=== PATIENT | male | born 1965 | race Caucasian/White ===

== ENCOUNTER 2016-06-10 | Outpatient (CLI) | END 2016-06-10 20:11 | disposition critical access hospital (66) | CPT/HCPCS: A0425; A0429 ==

== ENCOUNTER 2016-06-10 21:02 | Emergency (ER) | payer MEDICAID ==
[2016-06-10] MEDS ORDERED: SODIUM CHLORIDE 0.9% 1,000 ML IV STA ×2 (21:47→23:16)
== END 2016-06-11 08:35 | disposition home or self-care (01) ==
DX: F10.129 Alcohol abuse with intoxication, unspecified (principal); G62.9 Polyneuropathy, unspecified; W01.0XXA Fall on same level from slipping, tripping and stumbling without subsequent striking against object, initial encounter; Y92.019 Unspecified place in single-family (private) house as the place of occurrence of the external cause; I10 Essential (primary) hypertension; G47.30 Sleep apnea, unspecified; R25.1 Tremor, unspecified; K21.9 Gastro-esophageal reflux disease without esophagitis; M19.90 Unspecified osteoarthritis, unspecified site; Z87.891 Personal history of nicotine dependence

== ENCOUNTER 2016-07-13 | Outpatient (CLI) | payer MEDICAID | END 2016-07-13 22:40 | disposition critical access hospital (66) | CPT/HCPCS: A0425; A0429 ==

== ENCOUNTER 2016-07-13 22:50 | Inpatient (IN) | payer MEDICAID ==
[2016-07-14] MEDS ORDERED: diazePAM INJ 5 MG/ML SYRINGE IVP STA (00:48)
[2016-07-14] MEDS ORDERED: diazePAM INJ 5 MG/ML SYRINGE ONE (00:52)
[2016-07-14] MEDS ORDERED: ONDANSETRON 4 MG/2 ML VIAL IVP PRN (01:05)
[2016-07-14] MEDS ORDERED: LABETALOL 20 MG/4 ML SYRINGE IVP ONE (02:30)
[2016-07-14] MEDS: MAGNESIUM OXIDE 400 MG TABLET PO SCH ×2 (02:47→08:47)
[2016-07-14] MEDS: SODIUM CHLORIDE FLUSH 0.9% 10 ML SYRINGE IVP PRN ×3 (02:47→04:11)
[2016-07-14] MEDS: ACETAMINOPHEN 325 MG TABLET PO PRN ×2 (03:32→13:43)
[2016-07-14] MEDS: LORazepam 2 MG/ML SYRINGE IVP PRN ×2 (03:32→04:10)
[2016-07-14] MEDS: METOPROLOL 5 MG/5 ML VIAL IVP SCH ×3 (06:34→20:16)
[2016-07-14] MEDS: SODIUM CHLORIDE FLUSH 0.9% 10 ML SYRINGE IVP SCH ×3 (06:35→21:35)
[2016-07-14] MEDS: ENOXAPARIN 40 MG/0.4 ML SYRINGE SUBQ SCH (08:47)
[2016-07-14] MEDS ORDERED: FAMOTIDINE 20 MG/50 ML 50 ML IV SCH (09:00)
[2016-07-14] MEDS ORDERED: MULTIVITAMIN 10 ML, THIAMINE INJ 100 MG, FOLIC ACID INJ 1 MG in SODIUM CHLORIDE 0.9% 1,... IV SCH (09:00)
[2016-07-14] MEDS ORDERED: MAGNESIUM SULFATE 2 GRAM 50 ML IV ONE (12:00)
[2016-07-14] MEDS ORDERED: LORazepam 0.5 MG TABLET PO PRN ×2 (20:38→21:47)
[2016-07-14] MEDS ORDERED: ONDANSETRON ODT 4 MG TABLET TL PRN (20:47)
[2016-07-14] MEDS ORDERED: PROPRANOLOL 10 MG TABLET PO SCH (21:00)
[2016-07-15] MEDS: SODIUM CHLORIDE FLUSH 0.9% 10 ML SYRINGE IVP SCH (06:12)
[2016-07-15] MEDS ORDERED: PANTOPRAZOLE 40 MG TABLET PO SCH (07:00)
[2016-07-15] MEDS ORDERED: PRENATAL VITAMIN TABLET PO SCH (08:00)
[2016-07-15] MEDS: ACETAMINOPHEN 325 MG TABLET PO PRN (08:56)
[2016-07-15] MEDS: ENOXAPARIN 40 MG/0.4 ML SYRINGE SUBQ SCH (08:58)
[2016-07-15] MEDS ORDERED: THIAMINE 100 MG TABLET PO SCH (09:00)
[2016-07-15] MEDS ORDERED: PROPRANOLOL 40 MG TABLET PO SCH (09:00)
[2016-07-15] MEDS ORDERED: FLU VACCINE QS 2016-17 60 MCG/0.5 ML SYRINGE IM ONE (13:00)
== END 2016-07-15 13:46 | disposition home or self-care (01) | DRG 917 ==
DX: T50.901A Poisoning by unspecified drugs, medicaments and biological substances, accidental (unintentional), initial encounter (principal); G92 Toxic encephalopathy; G60.3 Idiopathic progressive neuropathy; I10 Essential (primary) hypertension; Y92.009 Unspecified place in unspecified non-institutional (private) residence as the place of occurrence of the external cause; F10.20 Alcohol dependence, uncomplicated; Z96.649 Presence of unspecified artificial hip joint; Z87.891 Personal history of nicotine dependence; Z82.49 Family history of ischemic heart disease and other diseases of the circulatory system; Z79.1 Long term (current) use of non-steroidal anti-inflammatories (NSAID); G89.29 Other chronic pain; M25.551 Pain in right hip; G40.909 Epilepsy, unspecified, not intractable, without status epilepticus; F41.9 Anxiety disorder, unspecified; F32.9 Major depressive disorder, single episode, unspecified; K21.9 Gastro-esophageal reflux disease without esophagitis

== ENCOUNTER 2016-08-25 18:36 | Outpatient (CLI) | payer MEDICAID | END 2016-08-25 18:37 | disposition critical access hospital (66) | DX: R07.9 Chest pain, unspecified (principal) | CPT/HCPCS: A0425; A0429 ==

== ENCOUNTER 2016-08-27 17:56 | Outpatient (CLI) | payer MEDICAID | END 2016-08-27 17:57 | disposition critical access hospital (66) | DX: R10.9 Unspecified abdominal pain (principal); R11.0 Nausea | CPT/HCPCS: A0425; A0427 ==

== ENCOUNTER 2016-08-27 18:08 | Inpatient (IN) | payer MEDICAID ==
[2016-08-27] MEDS ORDERED: FOLIC ACID INJ 1 MG, THIAMINE INJ 100 MG, MAGNESIUM SULFATE 2 GM, MULTIVITAMIN 10 ML in... IV STA ×5 (18:12)
[2016-08-27] MEDS ORDERED: HYDROmorphone 1 MG/ML SYRINGE IVP STA (20:07)
[2016-08-27] MEDS ORDERED: HYDROmorphone 1 MG/ML SYRINGE ONE (20:12)
[2016-08-27] MEDS ORDERED: ONDANSETRON ODT 4 MG TABLET TL PRN (20:52)
[2016-08-27] MEDS: ONDANSETRON 4 MG/2 ML VIAL IVP PRN (22:25)
[2016-08-27] MEDS: LORazepam 2 MG/ML SYRINGE IVP PRN (22:27)
[2016-08-27] MEDS: HYDROmorphone 1 MG/ML SYRINGE IVP PRN (22:31)
[2016-08-27] MEDS: SODIUM CHLORIDE FLUSH 0.9% 10 ML SYRINGE IVP SCH (22:32)
[2016-08-28] MEDS: HYDROmorphone 1 MG/ML SYRINGE IVP PRN ×3 (00:45→06:59)
[2016-08-28] MEDS: SODIUM CHLORIDE FLUSH 0.9% 10 ML SYRINGE IVP PRN ×5 (00:50→12:03)
[2016-08-28] MEDS: LORazepam 2 MG/ML SYRINGE IVP PRN ×7 (00:50→21:41)
[2016-08-28] MEDS: ONDANSETRON 4 MG/2 ML VIAL IVP PRN ×3 (03:31→15:47)
[2016-08-28] MEDS ORDERED: SODIUM CHLORIDE 0.9% 1,000 ML IV SCH (04:00)
[2016-08-28] MEDS: PROCHLORPERAZINE 10 MG/2 ML VIAL IVP PRN ×2 (06:58→18:43)
[2016-08-28] MEDS: PANTOPRAZOLE 40 MG VIAL IVP SCH ×2 (06:58→15:40)
[2016-08-28] MEDS: SODIUM CHLORIDE FLUSH 0.9% 10 ML SYRINGE IVP SCH ×3 (06:58→21:43)
[2016-08-28] MEDS ORDERED: LORazepam 2 MG/ML SYRINGE IVP PRN (08:15)
[2016-08-28] MEDS: POLYETHYLENE GLYCOL 3350 17 GM PACKET PO SCH (08:28)
[2016-08-28] MEDS: hydrOXYzine PAMOATE 25 MG CAPSULE PO SCH ×3 (08:29→21:39)
[2016-08-28] MEDS: buPROPion SR 100 MG TABLET PO SCH (08:29)
[2016-08-28] MEDS: PROPRANOLOL ER 60 MG CAPSULE PO SCH ×2 (08:29→21:40)
[2016-08-28] MEDS ORDERED: GABAPENTIN 100 MG CAPSULE PO SCH (09:00)
[2016-08-28] MEDS ORDERED: LORazepam 2 MG/ML SYRINGE IVP ONE (09:00)
[2016-08-28] MEDS: MULTIVITAMIN 10 ML, THIAMINE INJ 100 MG, FOLIC ACID INJ 1 MG in D5.45NS W/20 MEQ KCL 1,... IV SCH (09:54)
[2016-08-28] MEDS: KETOROLAC 30 MG/ML VIAL IVP PRN ×2 (12:03→18:43)
[2016-08-28] MEDS ORDERED: HYDROmorphone 1 MG/ML SYRINGE IVP PRN (13:30)
[2016-08-28] MEDS ORDERED: HYDROmorphone 2 MG TABLET PO PRN (20:51)
[2016-08-28] MEDS ORDERED: PRAZOSIN 1 MG CAPSULE PO SCH ×2 (21:00→21:31)
[2016-08-28] MEDS: QUEtiapine 100 MG TABLET PO SCH (21:38)
[2016-08-28] MEDS: GABAPENTIN 100 MG CAPSULE PO SCH (21:40)
[2016-08-28] MEDS: HYDROmorphone 2 MG TABLET PO PRN (21:40)
[2016-08-28] MEDS: MIRTAZAPINE 15 MG TABLET PO SCH (21:50)
[2016-08-29] MEDS: KETOROLAC 30 MG/ML VIAL IVP PRN ×3 (05:08→21:55)
[2016-08-29] MEDS: SODIUM CHLORIDE FLUSH 0.9% 10 ML SYRINGE IVP PRN ×4 (05:08→21:55)
[2016-08-29] MEDS: LORazepam 2 MG/ML SYRINGE IVP PRN (06:27)
[2016-08-29] MEDS: HYDROmorphone 2 MG TABLET PO PRN (06:27)
[2016-08-29] MEDS: PANTOPRAZOLE 40 MG VIAL IVP SCH ×2 (06:28→15:47)
[2016-08-29] MEDS: POLYETHYLENE GLYCOL 3350 17 GM PACKET PO SCH (09:37)
[2016-08-29] MEDS: hydrOXYzine PAMOATE 25 MG CAPSULE PO SCH ×3 (09:37→20:21)
[2016-08-29] MEDS: buPROPion SR 100 MG TABLET PO SCH (09:38)
[2016-08-29] MEDS: PROPRANOLOL ER 60 MG CAPSULE PO SCH ×2 (09:38→20:20)
[2016-08-29] MEDS: MULTIVITAMIN 10 ML, THIAMINE INJ 100 MG, FOLIC ACID INJ 1 MG in D5.45NS W/20 MEQ KCL 1,... IV SCH (09:40)
[2016-08-29] MEDS: SODIUM CHLORIDE FLUSH 0.9% 10 ML SYRINGE IVP SCH ×2 (09:41→20:26)
[2016-08-29] MEDS ORDERED: PROCHLORPERAZINE 5 MG TABLET PO PRN (11:09)
[2016-08-29] MEDS ORDERED: ONDANSETRON ODT 4 MG TABLET TL PRN (11:10)
[2016-08-29] MEDS ORDERED: MULTIVITAMIN 10 ML, THIAMINE INJ 100 MG, FOLIC ACID INJ 1 MG in D5.45NS W/20 MEQ KCL 1,... IV SCH (12:00)
[2016-08-29] MEDS ORDERED: LORazepam 0.5 MG TABLET PO STA (18:46)
[2016-08-29] MEDS: GABAPENTIN 100 MG CAPSULE PO SCH (20:19)
[2016-08-29] MEDS: MIRTAZAPINE 15 MG TABLET PO SCH (20:19)
[2016-08-29] MEDS: QUEtiapine 100 MG TABLET PO SCH (20:23)
[2016-08-30] MEDS: KETOROLAC 30 MG/ML VIAL IVP PRN (04:08)
[2016-08-30] MEDS: PANTOPRAZOLE 40 MG VIAL IVP SCH (06:15)
[2016-08-30] MEDS: SODIUM CHLORIDE FLUSH 0.9% 10 ML SYRINGE IVP SCH ×2 (06:15→13:52)
[2016-08-30] MEDS ORDERED: LORAZEPAM 1 MG PO PRN (07:54)
[2016-08-30] MEDS ORDERED: MULTIVITAMIN TABLET PO SCH (08:00)
[2016-08-30] MEDS: KETOROLAC 10 MG TABLET PO PRN ×2 (08:24→13:49)
[2016-08-30] MEDS: POLYETHYLENE GLYCOL 3350 17 GM PACKET PO SCH (08:24)
[2016-08-30] MEDS: PROPRANOLOL ER 60 MG CAPSULE PO SCH (08:24)
[2016-08-30] MEDS: hydrOXYzine PAMOATE 25 MG CAPSULE PO SCH (08:25)
[2016-08-30] MEDS: buPROPion SR 100 MG TABLET PO SCH (08:25)
[2016-08-30] MEDS: LORazepam 0.5 MG TABLET PO SCH ×2 (08:25→13:49)
[2016-08-30] MEDS ORDERED: THIAMINE 100 MG TABLET PO SCH (09:00)
[2016-08-30] MEDS ORDERED: FOLIC ACID 1 MG TABLET PO SCH (09:00)
== END 2016-08-30 16:53 | disposition home or self-care (01) | DRG 439 ==
DX: K85.20 Alcohol induced acute pancreatitis without necrosis or infection (principal); F10.239 Alcohol dependence with withdrawal, unspecified; F10.229 Alcohol dependence with intoxication, unspecified; T51.0X1A Toxic effect of ethanol, accidental (unintentional), initial encounter; Y90.6 Blood alcohol level of 120-199 mg/100 ml; Z76.5 Malingerer [conscious simulation]; T84.84XS Pain due to internal orthopedic prosthetic devices, implants and grafts, sequela; G89.28 Other chronic postprocedural pain; R63.0 Anorexia; Z68.22 Body mass index [BMI] 22.0-22.9, adult; F32.9 Major depressive disorder, single episode, unspecified; F41.9 Anxiety disorder, unspecified; G62.9 Polyneuropathy, unspecified; G65.0 Sequelae of Guillain-Barre syndrome; I10 Essential (primary) hypertension; E78.5 Hyperlipidemia, unspecified; F98.8 Other specified behavioral and emotional disorders with onset usually occurring in childhood and adolescence; K21.9 Gastro-esophageal reflux disease without esophagitis; Z79.899 Other long term (current) drug therapy

== ENCOUNTER 2016-09-11 17:24 | Emergency (ER) | payer MEDICAID ==
[2016-09-11] MEDS ORDERED: SODIUM CHLORIDE 0.9% 1,000 ML IV ONE (17:43)
[2016-09-11] MEDS ORDERED: LIDOCAINE VISCOUS 2% 15 ML UDC MM STA (18:24)
[2016-09-11] MEDS ORDERED: MAG HYDROX/AL HYDROX/SIMETH 30 ML UDC PO STA (18:24)
[2016-09-11] MEDS ORDERED: SUCRALFATE 1 GM/10 ML UDC PO STA (18:24)
[2016-09-11] MEDS ORDERED: MAG HYDROX/AL HYDROX/SIMETH 30 ML UDC ONE (18:33)
[2016-09-11] MEDS ORDERED: SUCRALFATE 1 GM/10 ML UDC ONE (18:33)
[2016-09-11] MEDS ORDERED: LIDOCAINE VISCOUS 2% 15 ML UDC MM ONE (18:33)
[2016-09-11] MEDS ORDERED: PANTOPRAZOLE 40 MG VIAL IVP STA (19:46)
[2016-09-11] MEDS ORDERED: PANTOPRAZOLE 40 MG VIAL ONE (19:50)
== END 2016-09-11 20:23 | disposition home or self-care (01) ==
DX: K29.20 Alcoholic gastritis without bleeding (principal); R10.13 Epigastric pain; F10.120 Alcohol abuse with intoxication, uncomplicated; Z87.891 Personal history of nicotine dependence; I10 Essential (primary) hypertension; K21.9 Gastro-esophageal reflux disease without esophagitis; F32.9 Major depressive disorder, single episode, unspecified; F41.9 Anxiety disorder, unspecified
CPT/HCPCS: 36415; 80053; 80320; 83690; 85025; 96374; 99283; 99284; A9270

== ENCOUNTER 2016-09-16 16:37 | Emergency (ER) | payer MEDICAID ==
[2016-09-16] MEDS ORDERED: HYDROmorphone 1 MG/ML SYRINGE IVP STA (17:03)
[2016-09-16] MEDS ORDERED: SODIUM CHLORIDE 0.9% 1,000 ML IV ONE (17:03)
[2016-09-16] MEDS ORDERED: THIAMINE 100 MG TABLET PO STA (17:03)
[2016-09-16] MEDS ORDERED: PANTOPRAZOLE 40 MG VIAL IVP STA (17:03)
--- NOTE | 2016-09-16 17:05 | ED Physician Documentation ---
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 I admitted him potentially a week ago for pancreatitis. He did not see sober for long after discharge. He complains of upper abdominal pain radiating slightly to the back and diffusely in the abdomen since yesterday worse today that did not improve after drinking more alcohol. He's had no vomiting and normal bowel movements) Review of Systems Ten Systems: 10 systems reviewed and negative Constitutional: denies: Fever, Chills Cardiac: denies: Chest pain / pressure, Palpitations Respiratory: denies: Dyspnea, Cough GI: denies: Nausea, Vomiting, Diarrhea, Hematemesis, Bloody / black stool PD PAST MEDICAL HISTORY - Past Medical History Cardiovascular: Hypertension Respiratory: None, Sleep apnea Neuro: Tremors, Other Endocrine/Autoimmune: None GI: GERD, Pancreatitis : Incontinence HEENT: None Psych: Depression, Anxiety Musculoskeletal: Osteoarthritis Derm: None - Past Surgical History Past Surgical History: Yes Ortho: Hip replacement, Arthroscopic surgery HEENT: Tracheostomy - Present Medications Home Medications: Ambulatory Orders Medication Instructions Recorded Confirmed Bupropion HCl [Bupropion HCl Sr] 200 mg PO DAILY 05/23/16 09/11/16 Gabapentin 300 mg PO QPM 05/23/16 09/11/16 Hydroxyzine Pamoate 50 - 100 mg PO QPM 05/23/16 09/11/16 Hydroxyzine Pamoate 50 mg PO 0900,1600 05/23/16 09/11/16 Lorazepam 1 mg PO TID PRN 05/23/16 09/11/16 Propranolol [Inderal] 60 mg PO BID 05/23/16 09/11/16 Omeprazole [PriLOSEC] 20 mg PO QDAC 07/14/16 09/11/16 Mirtazapine 30 mg PO QPM 08/28/16 09/11/16 Prazosin HCl [Minipress] 2 - 4 mg PO QPM 08/28/16 09/11/16 Quetiapine Fumarate [Seroquel] 800 mg PO QPM 08/28/16 09/11/16 Folic Acid 1 mg PO DAILY #30 tablet 08/30/16 09/11/16 Multivitamin [Theragran] 1 tab PO DAILYWM #30 tablet 08/30/16 09/11/16 Ondansetron Odt [Zofran Odt] 4 mg TL Q6HR PRN #10 tablet 08/30/16 09/11/16 Thiamine [Vitamin B-1] 100 mg PO DAILY #30 tablet 08/30/16 09/11/16 Famotidine [Pepcid] 20 mg PO BID #30 tablet 09/11/16 Sucralfate 1 gm PO ACHS #60 tablet 09/11/16 HYDROcod/ACETAM 5/325 [[place] 5/325] 1 - 2 ea PO Q6H PRN #10 tablet 09/16/16 Lorazepam [Ativan] 1 mg PO TID PRN #7 tablet 09/16/16 Omeprazole [PriLOSEC] 20 mg PO DAILY #14 capsule 09/16/16 - Allergies Allergies/Adverse Reactions: Allergies Allergy/AdvReac Type Severity Reaction Status Date / Time lisinopril Allergy Mild Edema Verified 09/11/16 17:41 - Social History Does the pt smoke?: No Smoking Status: Former smoker Does the pt drink ETOH?: Yes Does the pt have substance abuse?: Yes - Immunizations Immunizations are current?: Yes Immunizations: Other immun not current - POLST Patient has POLST: No PD ED PE NORMAL - Vitals Vital signs reviewed: Yes - General General: 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, No acute distress - HEENT HEENT: PERRL, EOMI - Neck Neck: Supple, no meningeal sign, No bony TTP - Cardiac Cardiac: RRR, No murmur - Respiratory Respiratory: No respiratory distress, Clear bilaterally - Abdomen Abdomen: Normal bowel sounds, Soft, Other (mild upper abd ttp) - Back Back: No CVA TTP, No spinal TTP - Derm Derm: Normal color, Warm and dry - Neuro Neuro: 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, Normal speech - Psych Psych: Normal mood, Normal affect Results - Vitals Vitals: Vital Signs - 24 hr 09/16/16 09/16/16 16:44 17:49 Temperature 36.5 C Heart Rate 86 83 Respiratory 18 16 Rate Blood Pressure 158/102 H 137/100 H O2 Saturation 94 98 Oxygen O2 Source Room air - Labs Labs: Laboratory Tests 09/16/16 09/16/16 17:20 17:20 WBC 4.9 RBC 4.43 L Hgb 13.3 L Hct 41.5 L MCV 93.7 MCH 30.1 MCHC 32.1 RDW 13.7 Plt Count 261 MPV 8.1 Neut # 2.3 Lymph # 1.9 [place] # 0.6 Eos # 0.1 Baso # 0.1 Absolute Nucleated RBC 0.01 Nucleated RBCs 0.1 Sodium 139 Potassium 4.4 Chloride 102 Carbon Dioxide 21 Anion Gap 16.0 H BUN 24 H Creatinine 0.8 Estimated GFR (MDRD) 102 Glucose 74 Calcium 9.5 Total Bilirubin 1.1 H AST 43 H ALT 27 Alkaline Phosphatase 79 Total Protein 7.9 Albumin 4.5 Globulin 3.4 Albumin/Globulin Ratio 1.3 Lipase 60 H Ethyl Alcohol 124.6 PD MEDICAL DECISION MAKING - ED course ED course: 51-year-old gentleman with long history of alcoholism and complications including alcoholic pancreatitis and gastritis presents with upper abdominal pain which could be either. There is no evidence of pancreatitis on lab work. He had minimal relief from IV Dilaudid but actually had pretty good relief with the GI cocktail. He was administered IV Protonix. Supportive mom is at the bedside. Alcohol has been removed from the house. He will call his insurance tomorrow to inquire about inpatient alcohol rehabilitation Departure - Departure Disposition: 01 Home, Self Care Clinical Impression: Gastritis Qualifiers: Gastritis type: alcoholic Chronicity: acute Gastritis bleeding: without bleeding Qualified Code(s): K29.20 - Alcoholic gastritis without bleeding Alcohol intoxication Qualifiers: Complication of substance-induced condition: uncomplicated Qualified Code(s): F10.120 - Alcohol abuse with intoxication, uncomplicated Condition: Good Record reviewed to determine appropriate education?: Yes Instructions: ED Alcohol Intoxication, ED Gastritis Prescriptions: Lorazepam [Ativan] 1 mg PO TID PRN #7 tablet PRN Reason: Anxiety HYDROcod/ACETAM 5/325 [[place] 5/325] 1 - 2 ea PO Q6H PRN #10 tablet PRN Reason: Pain Omeprazole [PriLOSEC] 20 mg PO DAILY #14 capsule Comments: Call your insurance company's case hardener tomorrow to discuss inpatient alcohol rehabilitation. Return if worse. Your blood pressure was elevated today on check in to the emergency department. This does not mean that you have hypertension, it is a common phenomenon to check into the emergency department and have elevated blood pressure. I recommend that you see your primary care physician within the week to have it rechecked when you're feeling better. Do not drink or drive while on narcotic pain medicine. Note that many narcotic pain relievers also contain tylenol/acetaminophen. Please ensure that your total dose of acetaminophen from all sources does not exceed 3 grams (3000mg) per day. You may constipated on this medication, take a stool softener such as "Colace" twice a day while you are on it. Also recommend a [id number]-ogl-[id number] laxative such as senna or MiraLAX any day that you do not have a bowel movement. If you received narcotic pain medication in the emergency department, do not drive or operate machinery for the next 24 hours.
[2016-09-16] MEDS ORDERED: PANTOPRAZOLE 40 MG VIAL ONE (17:24)
[2016-09-16] MEDS ORDERED: HYDROmorphone 1 MG/ML SYRINGE ONE (17:24)
[2016-09-16] MEDS ORDERED: THIAMINE 100 MG/1 ML 2 ML MDV ONE (17:24)
[2016-09-16 17:29] LABS: BASOPHILS # (AUTO) 0.1 10^3/uL (0.0-0.1); BASOPHILS % (AUTO) 1.7 %; EOSINOPHILS # (AUTO) 0.1 10^3/uL (0.0-0.7); EOSINOPHILS % (AUTO) 2.5 %; HCT - HEMATOCRIT 41.5 % (42.0-52.0); HGB - HEMOGLOBIN 13.3 g/dL (14.0-18.0); LYMPHOCYTES # (AUTO) 1.9 10^3/uL (1.5-3.5); LYMPHOCYTES % (AUTO) 38.3 %; MEAN CORPUSCULAR HEMOGLOBIN 30.1 pg (27.0-31.0); MEAN CORPUSCULAR HGB CONC 32.1 g/dL (32.0-36.0); MEAN CORPUSCULAR VOLUME 93.7 fL (80.0-94.0); MEAN PLATELET VOLUME 8.1 fL (7.4-11.4); MONOCYTES # (AUTO) 0.6 10^3/uL (0.0-1.0); MONOCYTES % (AUTO) 11.5 %; NEUTROPHILS # (AUTO) 2.3 10^3/uL (1.5-6.6); NUCLEATED RED BLOOD CELLS AUTO 0.1 /100WBC; RED BLOOD COUNT 4.43 10^6/uL (4.70-6.10); RED CELL DISTRIBUTION WIDTH 13.7 % (12.0-15.0); UNCORRECTED WHITE BLOOD COUNT 4.9 x10^3/uL; WHITE BLOOD COUNT 4.9 x10^3/uL (4.8-10.8)
[2016-09-16] MEDS ORDERED: THIAMINE 100 MG TABLET PO ONE (17:30)
[2016-09-16 17:50] VITALS: BP 137/100
[2016-09-16] MEDS ORDERED: LIDOCAINE VISCOUS 2% 15 ML UDC MM STA (17:51)
[2016-09-16] MEDS ORDERED: MAG HYDROX/AL HYDROX/SIMETH 30 ML UDC PO STA (17:51)
[2016-09-16 17:52] LABS: ALBUMIN/GLOBULIN RATIO 1.3 (1.0-2.2); BILIRUBIN,TOTAL 1.1 mg/dL (0.2-1.0); CALCIUM 9.5 mg/dL (8.5-10.3); CREATININE 0.8 mg/dL (0.6-1.2); POTASSIUM 4.4 mmol/L (3.5-5.0); TOTAL PROTEIN 7.9 g/dL (6.7-8.2)
[2016-09-16] MEDS ORDERED: MAG HYDROX/AL HYDROX/SIMETH 30 ML UDC ONE (17:52)
[2016-09-16] MEDS ORDERED: LIDOCAINE VISCOUS 2% 15 ML UDC MM ONE (17:52)
== END 2016-09-16 18:32 | disposition home or self-care (01) ==
LOC: ED 16:37
DX: K29.20 Alcoholic gastritis without bleeding (principal); F10.229 Alcohol dependence with intoxication, unspecified; I10 Essential (primary) hypertension; G61.0 Guillain-Barre syndrome; K21.9 Gastro-esophageal reflux disease without esophagitis; M19.90 Unspecified osteoarthritis, unspecified site; Z87.891 Personal history of nicotine dependence
CPT/HCPCS: 36415; 80053; 80320; 83690; 85025; 96361; 96374; 96375; 99283; 99284; A9270; J1170

== ENCOUNTER 2016-10-23 17:15 | Outpatient (CLI) | payer MEDICAID | END 2016-10-23 17:16 | disposition critical access hospital (66) | DX: R45.851 Suicidal ideations (principal) | CPT/HCPCS: A0425; A0429 ==

== ENCOUNTER 2016-10-23 17:32 | Emergency (ER) | payer MEDICAID ==
[2016-10-23] MEDS ORDERED: SODIUM CHLORIDE 0.9% 1,000 ML IV ONE (17:55)
--- NOTE | 2016-10-23 17:57 | ED Physician Documentation ---
PD HPI ALTERED MENTAL STATUS - Stated complaint Stated Complaint: SI - Chief complaint Chief Complaint: MHE - History obtained from History obtained from: Patient, EMS - History of Present Illness Timing - onset: Today Timing - duration: Other (unknown) - Additional information Additional information: Stew is unable to give any history, moaning. Per EMS has been drinking etoh today and states that he called the called the crisis line and they dispatched police. Review of Systems Unable to obtain: AMS, Uncooperative PD PAST MEDICAL HISTORY - Past Medical History Cardiovascular: Hypertension Respiratory: None, Sleep apnea Neuro: Tremors, Other Endocrine/Autoimmune: None GI: GERD, Pancreatitis : Incontinence HEENT: None Psych: Depression, Anxiety Musculoskeletal: Osteoarthritis Derm: None - Past Surgical History Past Surgical History: Yes Ortho: Hip replacement, Arthroscopic surgery HEENT: Tracheostomy - Present Medications Home Medications: Ambulatory Orders Medication Instructions Recorded Confirmed Bupropion HCl [Bupropion HCl Sr] 200 mg PO DAILY 05/23/16 09/11/16 Gabapentin 300 mg PO QPM 05/23/16 09/11/16 Hydroxyzine Pamoate 50 - 100 mg PO QPM 05/23/16 09/11/16 Hydroxyzine Pamoate 50 mg PO 0900,1600 05/23/16 09/11/16 Lorazepam 1 mg PO TID PRN 05/23/16 09/11/16 Propranolol [Inderal] 60 mg PO BID 05/23/16 09/11/16 Omeprazole [PriLOSEC] 20 mg PO QDAC 07/14/16 09/11/16 Mirtazapine 30 mg PO QPM 08/28/16 09/11/16 Prazosin HCl [Minipress] 2 - 4 mg PO QPM 08/28/16 09/11/16 Quetiapine Fumarate [Seroquel] 800 mg PO QPM 08/28/16 09/11/16 Folic Acid 1 mg PO DAILY #30 tablet 08/30/16 09/11/16 Multivitamin [Theragran] 1 tab PO DAILYWM #30 tablet 08/30/16 09/11/16 Ondansetron Odt [Zofran Odt] 4 mg TL Q6HR PRN #10 tablet 08/30/16 09/11/16 Thiamine [Vitamin B-1] 100 mg PO DAILY #30 tablet 08/30/16 09/11/16 Famotidine [Pepcid] 20 mg PO BID #30 tablet 09/11/16 Sucralfate 1 gm PO ACHS #60 tablet 09/11/16 HYDROcod/ACETAM 5/325 [[place] 5/325] 1 - 2 ea PO Q6H PRN #10 tablet 09/16/16 Lorazepam [Ativan] 1 mg PO TID PRN #7 tablet 09/16/16 Omeprazole [PriLOSEC] 20 mg PO DAILY #14 capsule 09/16/16 - Allergies Allergies/Adverse Reactions: Allergies Allergy/AdvReac Type Severity Reaction Status Date / Time lisinopril Allergy Mild Edema Verified 09/11/16 17:41 - Social History Does the pt smoke?: No Smoking Status: Former smoker Does the pt drink ETOH?: Yes Does the pt have substance abuse?: Yes - Immunizations Immunizations are current?: Yes Immunizations: Other immun not current - POLST Patient has POLST: No PD ED PE NORMAL - Vitals Vital signs reviewed: Yes - General General: Well developed/nourished, Other (moaning, alert) - HEENT HEENT: Atraumatic, PERRL, EOMI, Moist mucous membranes - Neck Neck: Supple, no meningeal sign - Cardiac Cardiac: RRR, Strong equal pulses - Respiratory Respiratory: No respiratory distress, Clear bilaterally - Abdomen Abdomen: Soft, Non tender - Derm Derm: Warm and dry, No rash - Extremities Extremities: No deformity - Neuro Neuro: Other (MAEE) - Psych Psych: Other (intoxicated) Results - Vitals Vitals: Vital Signs - 24 hr 10/23/16 10/23/16 10/23/16 17:40 19:33 21:29 Temperature 37 C Heart Rate 92 94 80 Respiratory 17 16 18 Rate Blood Pressure 133/95 H 106/72 108/81 H O2 Saturation 96 95 92 10/23/16 21:35 Temperature Heart Rate 94 Respiratory 92 H Rate Blood Pressure 129/84 H O2 Saturation 95 Oxygen O2 Source Room air - Labs Labs: Laboratory Tests 10/23/16 10/23/16 18:25 18:25 WBC 5.4 RBC 4.44 L Hgb 13.5 L Hct 40.8 L MCV 92.0 MCH 30.3 MCHC 33.0 RDW 15.2 H Plt Count 191 MPV 8.2 Neut # 2.4 Lymph # 2.0 [place] # 0.8 Eos # 0.2 Baso # 0.1 Absolute Nucleated RBC 0.02 Nucleated RBCs 0.3 Sodium 139 Potassium 3.5 Chloride 98 L Carbon Dioxide 24 Anion Gap 17.0 H BUN 19 Creatinine 0.8 Estimated GFR (MDRD) 102 Glucose 96 Calcium 9.4 Total Bilirubin 0.6 AST 46 H ALT 35 Alkaline Phosphatase 74 Total Protein 7.6 Albumin 4.6 Globulin 3.0 Albumin/Globulin Ratio 1.5 Lipase 29 Salicylates < 6.0 Acetaminophen < 10 L Ethyl Alcohol 464.7 - Rads (name of study) head CT Radiology: Prelim report reviewed, EMP read contemporaneously, See rad report ( No acute intracranial abnormality) PD MEDICAL DECISION MAKING - ED course Complexity details: reviewed results, re-evaluated patient, considered differential, d/w patient ED course: Patient is a 51-year-old male who was brought into the emergency department for altered mental status, possible suicidal ideation. He is heavily intoxicated here. As he is unable to cooperate with exam and unable to speak initially, head CT was performed with no acute abnormality. He apparently was on the phone with the crisis line prior to EMS being called tonight by police. Will allow him to sober in the emergency department overnight and be reevaluated for suicidal ideation. Patient does have a long history of alcohol abuse.Patient signed out to oncoming emergency department physician, Dr. Tomas. This document was made in part using voice recognition software. While efforts are made to proofread this document, sound alike and grammatical errors may occur. Departure - Departure Clinical Impression: Alcohol intoxication Qualifiers: Complication of substance-induced condition: uncomplicated Qualified Code(s): F10.120 - Alcohol abuse with intoxication, uncomplicated Condition: Stable
[2016-10-23] MEDS ORDERED: FOLIC ACID INJ 1 MG, THIAMINE INJ 100 MG, MAGNESIUM SULFATE 2 GM, MULTIVITAMIN 10 ML in... IV STA ×5 (18:00)
[2016-10-23 18:44] LABS: BASOPHILS # (AUTO) 0.1 10^3/uL (0.0-0.1); EOSINOPHILS # (AUTO) 0.2 10^3/uL (0.0-0.7); EOSINOPHILS % (AUTO) 2.9 %; HCT - HEMATOCRIT 40.8 % (42.0-52.0); HGB - HEMOGLOBIN 13.5 g/dL (14.0-18.0); LYMPHOCYTES % (AUTO) 36.5 %; MEAN CORPUSCULAR HEMOGLOBIN 30.3 pg (27.0-31.0); MEAN PLATELET VOLUME 8.2 fL (7.4-11.4); MONOCYTES # (AUTO) 0.8 10^3/uL (0.0-1.0); MONOCYTES % (AUTO) 15.5 %; NEUTROPHILS # (AUTO) 2.4 10^3/uL (1.5-6.6); NEUTROPHILS % (AUTO) 44.1 %; NUCLEATED RED BLOOD CELLS AUTO 0.3 /100WBC; RED BLOOD COUNT 4.44 10^6/uL (4.70-6.10); RED CELL DISTRIBUTION WIDTH 15.2 % (12.0-15.0); UNCORRECTED WHITE BLOOD COUNT 5.4 x10^3/uL; WHITE BLOOD COUNT 5.4 x10^3/uL (4.8-10.8)
[2016-10-23 18:56] LABS: ALBUMIN/GLOBULIN RATIO 1.5 (1.0-2.2); BILIRUBIN,TOTAL 0.6 mg/dL (0.2-1.0); BUN - BLOOD UREA NITROGEN 19 mg/dL (6-20); CALCIUM 9.4 mg/dL (8.5-10.3); CARBON DIOXIDE - CO2 24 mmol/L (21-32); CHLORIDE 98 mmol/L (101-111); CREATININE 0.8 mg/dL (0.6-1.2); GFR - MDRD 102 (>89); GLUCOSE 96 mg/dL (70-100); LIPASE 29 U/L (22-51); POTASSIUM 3.5 mmol/L (3.5-5.0); SALICYLATE < 6.0 mg/dL; SODIUM 139 mmol/L (135-145); TOTAL PROTEIN 7.6 g/dL (6.7-8.2)
[2016-10-23 18:58] LABS: ACETAMINOPHEN < 10 ug/mL (10-30)
--- NOTE | 2016-10-23 19:23 | CT Preliminary Report ---
Exam: CT Head W/O IMPRESSION: 1. No acute intracranial abnormality is identified. [facility] SITE ID: [id number]
--- NOTE | 2016-10-23 19:25 | CT Report ---
EXAM: CT HEAD EXAM DATE: 10/23/2016 07:07 PM. CLINICAL HISTORY: Altered mental status. COMPARISON: 06/10/2016. 05/22/2016. TECHNIQUE: Multiaxial CT images were obtained from the foramen magnum to the vertex. IV contrast: Non e. Reformats: Coronal. In accordance with CT protocol optimization, one or more of the following dose reduction techniques w ere utilized for this exam: automated exposure control, adjustment of mA and/or KV based on patient s ize, or use of iterative reconstructive technique. FINDINGS: Parenchyma: Parenchymal volume loss with periventricular regions of low attenuation. No evidence of a n acute vascular insult or acute parenchymal hemorrhage. No midline shift. No mass effect. Extraaxial Spaces: Extra-axial spaces are prominent. No acute extra-axial fluid collections. Ventricles: Ventricles are symmetric and no hydrocephalus. Sinuses: Imaged paranasal sinuses, orbits, and mastoids show no significant abnormality. Bones: No evidence of fracture or calvarial defect. Other: Globes and orbits are unremarkable. IMPRESSION: 1. No acute intracranial abnormality is identified. [facility] Referring Provider Line: [phone] SITE ID: [id number]
[2016-10-24 00:36] LABS: BILIRUBIN,URINE NEGATIVE (NEGATIVE); PH,URINE 6.5 PH (5.0-7.5)
[2016-10-24 00:38] LABS: UA CHARGE (STRIP ONLY) YES; UR CULTURE IF IND NOT INDICATED
[2016-10-24 06:25] VITALS: BP 104/62
[2016-10-24] MEDS ORDERED: LORazepam 0.5 MG TABLET PO STA (08:36)
--- NOTE | 2016-10-24 08:36 | ED Physician Documentation ---
ED Addendum - Addendum Addendum: 10/24/16 08:32 He is awake and conversant. Says he has been drinking more regularly. Has AA sponsor and plans to go to Noon AA meeting today. He denies suicidal ideation at this time. Has goal of being sober again. Given Resource booklet for number for [facility] in [place]. He will call his mother for a ride. I do not feel he is at risk of self-harm. Is having mild shakiness starting. Will get him Rx to help with withdrawal symtpoms.
[2016-10-24] MEDS ORDERED: LORazepam 0.5 MG TABLET ONE (08:37)
== END 2016-10-24 09:01 | disposition home or self-care (01) ==
LOC: EDUNIT# → ED 17:32
DX: F10.129 Alcohol abuse with intoxication, unspecified (principal); I10 Essential (primary) hypertension; G47.30 Sleep apnea, unspecified; K21.9 Gastro-esophageal reflux disease without esophagitis; M19.90 Unspecified osteoarthritis, unspecified site; Z87.891 Personal history of nicotine dependence
CPT/HCPCS: 36415; 70450; 80053; 80306; 80307; 80320; 80329; 81003; 83690; 85025; 96365; 99284; A9270; J3411; 81001; 87086

== ENCOUNTER 2016-11-12 09:27 | Outpatient (CLI) | payer MEDICAID ==
[2016-11-12] MEDS ORDERED: BUFFERED LIDOCAINE 10 ML SYRINGE IU ONE (10:30)
[2016-11-12] MEDS ORDERED: IOTHALAMATE MEGLUMINE 50 ML VIAL IVP ONE ×2 (10:30)
[2016-11-12 11:06] LABS: CC,BF RBC 49716 /mm^3
--- NOTE | 2016-11-12 11:34 | XRAY Report ---
FLUOROSCOPICALLY GUIDED RIGHT HIP JOINT ASPIRATION: 11/12/2016 CLINICAL INDICATION: Possible loose or infected prosthesis. FINDINGS: Following obtaining informed consent, the patient's right hip was prepped and draped in the usual sterile fashion. The skin and soft tissues were anesthetized with lidocaine. A spinal needle was inserted to the prosthetic femoral neck. Initial attempt at aspiration was unsuccessful. Approximately 10 mL of nonbacteriostatic saline was injected, with approximately 2 mL returned. Fluid was submitted to the lab for further evaluation as requested by Dr. Hui. The patient tolerated the procedure well. No immediate complications. Spot image demonstrates needle positioning, with [place] injected. IMPRESSION: RIGHT HIP ASPIRATION UNDER FLUOROSCOPY. FLUOROSCOPY TIME: 45 SECONDS; 1 SPOT IMAGE OBTAINED. JOB #: [id number] EXT JOB #: [id number] MARVIN
[2016-11-12 12:10] LABS: EOSINOPHILS %,BODY FLUID 4 %; LYMPHOCYTES %,BODY FLUID 25; MONOCYTES %,BODY FLUID 2 %; NEUTROPHILS %, BF 62 %
[2016-11-12 12:12] LABS: BF CLARITY HAZY; BF COLOR BLOODY
== END 2016-11-12 09:28 | disposition home or self-care (01) ==
LOC: DI 09:27
PROVIDERS: ATTEND Orthopaedic Surgery
DX: T84.030A Mechanical loosening of internal right hip prosthetic joint, initial encounter (principal)
CPT/HCPCS: 20610; 77002; 81599; 87070; 87205; 89051; Q9961; 87102; 87206

== ENCOUNTER 2016-11-30 06:05 | Outpatient (CLI) | payer MEDICAID | END 2016-11-30 06:06 | disposition critical access hospital (66) | LOC: EMS 06:05 | PROVIDERS: ATTEND Surgery | DX: R47.81 Slurred speech (principal) | CPT/HCPCS: A0425; A0429 ==

== ENCOUNTER 2016-11-30 06:25 | Inpatient (IN) | payer MEDICAID ==
[2016-11-30 07:45] LABS: BASOPHILS % (AUTO) 1.4 %; EOSINOPHILS # (AUTO) 0.1 10^3/uL (0.0-0.7); EOSINOPHILS % (AUTO) 4.9 %; HCT - HEMATOCRIT 36.9 % (42.0-52.0); HGB - HEMOGLOBIN 12.5 g/dL (14.0-18.0); LYMPHOCYTES # (AUTO) 1.1 10^3/uL (1.5-3.5); LYMPHOCYTES % (AUTO) 37.5 %; MEAN CORPUSCULAR VOLUME 94.2 fL (80.0-94.0); MEAN PLATELET VOLUME 7.6 fL (7.4-11.4); MONOCYTES # (AUTO) 0.3 10^3/uL (0.0-1.0); NEUTROPHILS # (AUTO) 1.3 10^3/uL (1.5-6.6); NEUTROPHILS % (AUTO) 44.2 %; NUCLEATED RED BLOOD CELLS AUTO 0.1 /100WBC; RED BLOOD COUNT 3.91 10^6/uL (4.70-6.10); RED CELL DISTRIBUTION WIDTH 17.9 % (12.0-15.0); UNCORRECTED WHITE BLOOD COUNT 2.9 x10^3/uL; WHITE BLOOD COUNT 2.9 x10^3/uL (4.8-10.8)
[2016-11-30 07:56] LABS: ALBUMIN/GLOBULIN RATIO 1.6 (1.0-2.2); BUN - BLOOD UREA NITROGEN 24 mg/dL (6-20); CALCIUM 9.7 mg/dL (8.5-10.3); CARBON DIOXIDE - CO2 28 mmol/L (21-32); CHLORIDE 103 mmol/L (101-111); GFR - MDRD 78 (>89); GLUCOSE 90 mg/dL (70-100); LIPASE 53 U/L (22-51); SODIUM 140 mmol/L (135-145); TOTAL PROTEIN 7.3 g/dL (6.7-8.2)
[2016-11-30 08:07] LABS: PLATELET ESTIMATE, MANUAL NORMAL (130-450,000) (NORMAL); PLATELET MORPHOLOGY NORMAL APPEARANCE (NORMAL)
--- NOTE | 2016-11-30 08:48 | ED Physician Documentation ---
PD HPI ALTERED MENTAL STATUS - Stated complaint Stated Complaint: AMS - Chief complaint Chief Complaint: Neuro - History obtained from History obtained from: Patient - History of Present Illness Timing - onset: Yesterday Timing - duration: Days (1) Timing - details: Gradual onset, Still present, Waxing and waning Quality / character: Less responsive Associated symptoms: Other (ataxia) Contributing factors: Substance abuse (usually alcohol) Basline status: 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, Ambulatory Similar symptoms before: Diagnosis (alcohol intoxication and withdrawal .) Recently seen: Other (The patient has been admitted to the hospital 3 times and evaluated in the ED 10 times in the past year.) - Additional information Additional information: 51 y/o male with a history of [place] alcoholism has been in and out of the hospital over the past year with alcohol related illness and altered mental status. He gives a history of his father dying at a stop light on the way to the hospital in [place] and the patient did CPR on him in April of 2015. The patient has had increased alcohol abuse and he has been evaluated a number of times for intoxication and for withdrawal symptoms and he seems to get very ataxic with these episodes and clears in the hospital after a day or two. He reports that he has been helping his mother with some interior house painting and he has been decreasing his alcohol intake over the past 13 days. He did drink last night and this morning he has no alcohol on board. He is a quite historian this morning but able to cooperate. Review of Systems Constitutional: denies: Fever, Chills Eyes: denies: Decreased vision Ears: denies: Ear pain Nose: denies: Rhinorrhea / runny nose, Congestion Throat: denies: Sore throat Cardiac: denies: Chest pain / pressure, Palpitations Respiratory: denies: Dyspnea, Cough GI: reports: Nausea. denies: Abdominal Pain, Vomiting : denies: Dysuria, Frequency Skin: denies: Rash Musculoskeletal: reports: Extremity pain, Joint pain, Pain with weight bearing. denies: Neck pain, Back pain Neurologic: reports: Confused, Altered mental status. denies: Generalized weakness, Focal weakness, Numbness, Headache, Head injury, LOC PD PAST MEDICAL HISTORY - Past Medical History Past Medical History: Yes Cardiovascular: Hypertension Respiratory: None, Sleep apnea Neuro: Tremors, Other Endocrine/Autoimmune: None GI: GERD, Pancreatitis : Incontinence HEENT: None Psych: Depression, Anxiety Musculoskeletal: Osteoarthritis Derm: None - Past Surgical History Past Surgical History: Yes Ortho: Hip replacement, Arthroscopic surgery HEENT: Tracheostomy - Present Medications Home Medications: Ambulatory Orders Medication Instructions Recorded Confirmed Bupropion HCl [Bupropion HCl Sr] 200 mg PO DAILY 05/23/16 11/30/16 Gabapentin 300 mg PO QPM 05/23/16 11/30/16 Hydroxyzine Pamoate 50 - 150 mg PO QPM 05/23/16 11/30/16 Hydroxyzine Pamoate 50 mg PO 0900,1600 05/23/16 09/11/16 Lorazepam 1 mg PO TID PRN 05/23/16 09/11/16 Propranolol [Inderal] 60 mg PO BID 05/23/16 11/30/16 Mirtazapine 7.5 mg PO QPM 08/28/16 11/30/16 Prazosin HCl [Minipress] 2 - 4 mg PO QPM 08/28/16 11/30/16 Quetiapine Fumarate [Seroquel] 800 mg PO QPM 08/28/16 11/30/16 Folic Acid 1 mg PO DAILY #30 tablet 08/30/16 11/30/16 Multivitamin [Theragran] 1 tab PO DAILYWM #30 tablet 08/30/16 09/11/16 Ondansetron Odt [Zofran Odt] 4 mg TL Q6HR PRN #10 tablet 08/30/16 09/11/16 Thiamine [Vitamin B-1] 100 mg PO DAILY #30 tablet 08/30/16 09/11/16 Famotidine [Pepcid] 20 mg PO BID #30 tablet 09/11/16 Sucralfate 1 gm PO ACHS #60 tablet 09/11/16 11/30/16 HYDROcod/ACETAM 5/325 [[place] 5/325] 1 - 2 ea PO Q6H PRN #10 tablet 09/16/16 Lorazepam [Ativan] 1 mg PO TID PRN #7 tablet 09/16/16 11/30/16 Omeprazole [PriLOSEC] 20 mg PO DAILY #14 capsule 09/16/16 11/30/16 Promethazine [Phenergan] 25 mg PO Q6H PRN #30 tab 10/24/16 chlordiazePOXIDE [Librium] 25 mg PO Q6H PRN #25 capsule 10/24/16 - Allergies Allergies/Adverse Reactions: Allergies Allergy/AdvReac Type Severity Reaction Status Date / Time lisinopril Allergy Mild Edema Verified 11/30/16 06:30 - Social History Does the pt smoke?: No Smoking Status: Former smoker Does the pt drink ETOH?: Yes Does the pt have substance abuse?: Yes - Immunizations Immunizations are current?: Yes Immunizations: Other immun not current - POLST Patient has POLST: No PD ED PE NORMAL - Vitals Vital signs reviewed: Yes (hypertensive ) - General General: No acute distress, Well developed/nourished - HEENT HEENT: Atraumatic, PERRL, EOMI, Ears normal, Other (dry mucous membranes) - Neck Neck: Supple, no meningeal sign, No bony TTP - Cardiac Cardiac: RRR, No murmur - Respiratory Respiratory: No respiratory distress, Clear bilaterally - Abdomen Abdomen: Soft, Non tender - Back Back: No CVA TTP, No spinal TTP - Derm Derm: Normal color, Warm and dry, No rash - Extremities Extremities: No deformity, Normal ROM s pain, No edema, No calf tenderness / cord - Neuro Neuro: No motor deficit, No sensory deficit - Psych Psych: Other (mood is withdrawn and the affect does have some range. ) Results - Vitals Vitals: Vital Signs - 24 hr 11/30/16 11/30/16 11/30/16 06:26 08:00 11:13 Temperature 37.4 C Heart Rate 76 73 73 Respiratory 18 14 14 Rate Blood Pressure 135/96 H 134/98 H 97/85 H O2 Saturation 99 95 96 11/30/16 12:00 Temperature Heart Rate 66 Respiratory 11 L Rate Blood Pressure 151/110 H O2 Saturation 96 Oxygen O2 Source Room air - Labs Labs: Laboratory Tests 11/30/16 11/30/16 11/30/16 07:37 07:37 09:55 WBC 2.9 L RBC 3.91 L Hgb 12.5 L Hct 36.9 L MCV 94.2 H MCH 32.0 H MCHC 34.0 RDW 17.9 H Plt Count 167 MPV 7.6 Neut # 1.3 L Lymph # 1.1 L [place] # 0.3 Eos # 0.1 Baso # 0.0 Absolute Nucleated RBC 0.00 Nucleated RBCs 0.1 Manual Slide Review Indicated Platelet Estimate NORMAL (130-450,000) Platelet Morphology NORMAL APPEARANCE RBC Morph Micro Appear 1+ TARGET CELLS Sodium 140 Potassium 4.0 Chloride 103 Carbon Dioxide 28 Anion Gap 9.0 BUN 24 H Creatinine 1.0 Estimated GFR (MDRD) 78 L Glucose 90 Calcium 9.7 Total Bilirubin 1.0 AST 147 H ALT 126 H Alkaline Phosphatase 68 Total Protein 7.3 Albumin 4.5 Globulin 2.8 Albumin/Globulin Ratio 1.6 Lipase 53 H Urine Color YELLOW Urine Clarity CLEAR Urine pH 7.0 Ur Specific [place] <=1.005 Urine Protein NEGATIVE Urine Glucose (UA) NEGATIVE Urine Ketones NEGATIVE Urine Occult Blood NEGATIVE Urine Nitrite NEGATIVE Urine Bilirubin NEGATIVE Urine Urobilinogen 0.2 (NORMAL) Ur Leukocyte Esterase NEGATIVE Ur Microscopic Review NOT INDICATED Urine Culture Comments NOT INDICATED Urine Opiates Screen NEGATIVE Ur Oxycodone Screen NEGATIVE Urine Methadone Screen NEGATIVE Ur Propoxyphene Screen NEGATIVE Ur Barbiturates Screen NEGATIVE Ur Tricyclics Screen POSITIVE H Ur Phencyclidine Scrn NEGATIVE Ur Amphetamine Screen NEGATIVE U Methamphetamines Scrn NEGATIVE U Benzodiazepines Scrn POSITIVE H Urine Cocaine Screen NEGATIVE U Cannabinoids Screen NEGATIVE Ethyl Alcohol < 5.0 PD MEDICAL DECISION MAKING - ED course Complexity details: reviewed old records, reviewed results, re-evaluated patient , considered differential, d/w patient, d/w family ED course: 51 y/o male with a history of [place] syndrome has had episodes similar to this previously where he will have ataxia and altered mental status and he usually clears in 1-2 days in the hospital. The patient is given a banana bag IV and he continues to have the ataxia and plans are made for admission. Departure - Departure Disposition: 66 [facility] [place] DC/Xfer Clinical Impression: Ataxia Altered mental status Qualifiers: Altered mental status type: disorientation Qualified Code(s): R41.0 - Disorientation, unspecified
[2016-11-30] MEDS ORDERED: FOLIC ACID INJ 1 MG, THIAMINE INJ 100 MG, MAGNESIUM SULFATE 2 GM, MULTIVITAMIN 10 ML in... IV STA ×5 (09:16)
[2016-11-30 10:06] LABS: BILIRUBIN,URINE NEGATIVE (NEGATIVE)
[2016-11-30] MEDS ORDERED: DEXAMETHASONE 10 MG/ML VIAL IVP STA (10:08)
[2016-11-30 10:11] LABS: UA CHARGE (STRIP ONLY) YES; UR CULTURE IF IND NOT INDICATED
[2016-11-30] MEDS ORDERED: DEXAMETHASONE 10 MG/ML VIAL ONE (10:28)
[2016-11-30] MEDS ORDERED: ONDANSETRON 4 MG/2 ML VIAL IVP PRN (13:42)
[2016-11-30] MEDS ORDERED: ACETAMINOPHEN 325 MG TABLET PO PRN (13:42)
[2016-11-30] MEDS ORDERED: SODIUM CHLORIDE FLUSH 0.9% 10 ML SYRINGE IVP PRN (13:42)
[2016-11-30] MEDS ORDERED: DEXTROSE 5%-0.45% NACL 1,000 ML IV SCH (14:00)
[2016-11-30 14:46] LABS: BASOPHILS % (AUTO) 0.6 %; EOSINOPHILS % (AUTO) 0.5 %; HCT - HEMATOCRIT 42.6 % (42.0-52.0); HGB - HEMOGLOBIN 14.3 g/dL (14.0-18.0); LYMPHOCYTES # (AUTO) 0.5 10^3/uL (1.5-3.5); LYMPHOCYTES % (AUTO) 19.1 %; MEAN CORPUSCULAR HEMOGLOBIN 32.2 pg (27.0-31.0); MEAN CORPUSCULAR HGB CONC 33.6 g/dL (32.0-36.0); MEAN CORPUSCULAR VOLUME 95.9 fL (80.0-94.0); MEAN PLATELET VOLUME 7.2 fL (7.4-11.4); MONOCYTES # (AUTO) 0.1 10^3/uL (0.0-1.0); MONOCYTES % (AUTO) 3.2 %; NEUTROPHILS # (AUTO) 2.1 10^3/uL (1.5-6.6); NEUTROPHILS % (AUTO) 76.6 %; NUCLEATED RED BLOOD CELLS AUTO 0.1 /100WBC; RED BLOOD COUNT 4.45 10^6/uL (4.70-6.10); RED CELL DISTRIBUTION WIDTH 18.4 % (12.0-15.0); UNCORRECTED WHITE BLOOD COUNT 2.7 x10^3/uL; WHITE BLOOD COUNT 2.7 x10^3/uL (4.8-10.8)
--- NOTE | 2016-11-30 14:51 | HISTORY & PHYSICAL EXAMINATION ---
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 Patient is a quite poor historian. Patient's mother at the bedside help provide some of history. Pt report he called 911 because he found his mother was shaking, in the pain "like heart attack." However the mother report she did not have these symptoms. EMS picked patient but not the mother. Pt report he felt weakness from his bilateral lower extremities to over his whole body, report "sinuses symptoms." But denies nasal congestion, nasal discharge, cough, fever, chill, facial pain or headache. Pt's speech is slurred and slowed. Pt report he has been on slurred and slow speech at least for six months. The mother state she could not understand what patient talk about, and ask patient repeat his talk. Pt denies drinking alcohol today, and is angry when the mother state he drunk alcohol. His mother state he drunk at least one bottle of wine (half of liter) on yesterday. Pt also report he can walk at least one mile daily. On my exam, pt does not present other new focal neural deficits. Pt does present mild restless, ataxia-like movement at his bilateral lower extremities. pt is oriented to his self, aware he is at [facility]. It is very similar to prior admission. He can only provide very limited history. Pt denies chest pain, abdominal pain, nausea, vomiting, diarrhea, SOB, headache. Denies suicide or homicide Idea. Review of Systems - Constitutional Constitutional: reports: Weakness History - Past Medical History Cardiovascular: reports: Hypertension Respiratory: reports: None, Sleep apnea Neuro: reports: Tremors, Other Endocrine/Autoimmune: reports: None GI: reports: GERD, Pancreatitis : reports: Incontinence HEENT: reports: None Psych: reports: Depression, Anxiety Musculoskeletal: reports: Osteoarthritis Derm: reports: None MRSA Hx?: No - Past Surgical History Ortho: reports: Hip replacement, Arthroscopic surgery HEENT: reports: Tracheostomy - Family & Social History Family History: Father: ( fro [place]), CAD Living arrangement: At home (patient is living with his mother, no job) Living Situation: With family - POLST Patient has POLST: No POLST Status: DNR (pt clearly state to me it is DNR, Pt's mother at the bedside did not say no.) Meds/Allgy - Home Medications Home Medications: Ambulatory Orders Medication Instructions Recorded Confirmed Bupropion HCl [Bupropion HCl Sr] 200 mg PO DAILY 05/23/16 11/30/16 Gabapentin 300 mg PO QPM 05/23/16 11/30/16 Hydroxyzine Pamoate 50 - 150 mg PO QPM 05/23/16 11/30/16 Hydroxyzine Pamoate 50 mg PO 0900,1600 05/23/16 11/30/16 Propranolol [Inderal] 60 mg PO BID 05/23/16 11/30/16 Mirtazapine 7.5 mg PO QPM 08/28/16 11/30/16 Prazosin HCl [Minipress] 2 - 4 mg PO QPM 08/28/16 11/30/16 Quetiapine Fumarate [Seroquel] 800 mg PO QPM 08/28/16 11/30/16 Folic Acid 1 mg PO DAILY #30 tablet 08/30/16 11/30/16 Multivitamin [Theragran] 1 tab PO DAILYWM #30 tablet 08/30/16 11/30/16 Thiamine [Vitamin B-1] 100 mg PO DAILY #30 tablet 08/30/16 11/30/16 Sucralfate 1 gm PO ACHS #60 tablet 09/11/16 11/30/16 Lorazepam [Ativan] 1 mg PO TID PRN #7 tablet 09/16/16 11/30/16 Omeprazole [PriLOSEC] 20 mg PO DAILY #14 capsule 09/16/16 11/30/16 - Allergies Allergies/Adverse Reactions: Allergies Allergy/AdvReac Type Severity Reaction Status Date / Time lisinopril Allergy Mild Edema Verified 11/30/16 06:30 Exam - Vital Signs Vital Signs: Vital Signs x48h Temp Pulse Pulse Resp BP BP Pulse Ox 11/30/16 14:30 36.6 C 74 20 129/90 H 98 11/30/16 14:16 77 15 147/114 H 99 11/30/16 12:00 66 11 L 151/110 H 96 11/30/16 11:13 73 14 97/85 H 96 11/30/16 08:00 73 14 134/98 H 95 - Physical Exam General Appearance: positive: No acute distress, Alert Eyes Bilateral: positive: Normal inspection, PERRL, EOMI, No lid inflammation, Conjunctivae nml ENT: positive: ENT inspection nml, Pharynx nml Neck: positive: Nml inspection, Thyroid nml, Trachea midline Respiratory: positive: Chest non-tender, No respiratory distress, Breath sounds nml Cardiovascular: positive: Regular rate & rhythm, No murmur Peripheral Pulses: positive: 2+ Abdomen: positive: Non-tender, Nml bowel sounds, No distention Back: positive: Nml inspection Skin: positive: Color nml, Warm Extremities: positive: Non-tender, Full ROM, Nml appearance Neurologic/Psychiatric: positive: CN's nml (2-12), Motor nml, Sensation nml, Other (oriented x2) Conclusion/Plan - Lab Results Fish Bones: 11/30/16 14:38 11/30/16 14:38 - Other Other Results/Comments: alcohol withdrawal. Although today UDS ETOH negative, pt drink lots of alcohol on yesterday, but he did not drink today. Pt present withdrawal or withdrawal delirium. But pt does not have seizure. Lab test reveals mild elevated liver enzyme, very slight elevated Lipase, no abdominal pain, no N/V/D, pt request diet and feel hungry. Pt is put on diet. CIWA protocol, banana bag, Valium PRN, tele and closely monitor at floor Substance abuse. UDS positive for Tricyclics and Benzodiazepines. Pt is a poor historian, most likely he continues to abuse this two drugs. using diazepines for alcohol withdrawal cautiously. Hold other sedation meds to void possible respiratory failure. Will follow update the home meds. 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 Pt seems no acute symptoms, no short of breathing, no paraesthesis. closely monitor. HTN: stable. Pt report he did take propranolol twice daily. reconcile weakness: mostly like from alcohol withdrawal and substance abuse. Pt will be evaluated by physical therapy. PPI: pepcid for GI , lovenox for DVT Issues/Core Measures - Anticipated LOS Anticipated Stay Length: Less than 2 midnights (pt has mutiple similar admissions)
[2016-11-30 14:58] LABS: ALBUMIN/GLOBULIN RATIO 1.6 (1.0-2.2); BILIRUBIN,TOTAL 1.2 mg/dL (0.2-1.0); CALCIUM 9.8 mg/dL (8.5-10.3); MAGNESIUM 1.9 mg/dL (1.7-2.8); POTASSIUM 3.5 mmol/L (3.5-5.0); TOTAL PROTEIN 8.2 g/dL (6.7-8.2)
[2016-11-30 14:59] LABS: INR 0.9 (0.8-1.2); PT - PROTHROMBIN TIME 10.3 secs (9.9-12.6)
[2016-11-30] MEDS: SODIUM CHLORIDE FLUSH 0.9% 10 ML SYRINGE IVP SCH ×2 (15:29→20:54)
[2016-11-30 15:54] LABS: PLATELET ESTIMATE, MANUAL NORMAL (130-450,000) (NORMAL); PLATELET MORPHOLOGY RARE GIANT PLATELETS (NORMAL)
[2016-11-30 15:55] LABS: WBC MORPHOLOGY (MULTIPLE) NORMAL APPEARANCE (NORMAL)
[2016-11-30] MEDS: diazePAM INJ 5 MG/ML SYRINGE IVP PRN ×2 (16:28→20:54)
[2016-11-30] MEDS: GABAPENTIN 300 MG CAPSULE PO SCH (20:53)
[2016-11-30] MEDS: PROPRANOLOL 40 MG TABLET PO SCH (20:53)
[2016-11-30] MEDS: SUCRALFATE 1 GM/10 ML UDC PO SCH (20:53)
[2016-11-30] MEDS ORDERED: PRAZOSIN 1 MG CAPSULE PO SCH (21:00)
[2016-12-01 05:53] LABS: BASOPHILS % (AUTO) 0.5 %; EOSINOPHILS % (AUTO) 0.2 %; HCT - HEMATOCRIT 39.4 % (42.0-52.0); HGB - HEMOGLOBIN 13.1 g/dL (14.0-18.0); LYMPHOCYTES # (AUTO) 0.8 10^3/uL (1.5-3.5); LYMPHOCYTES % (AUTO) 19.7 %; MEAN CORPUSCULAR HEMOGLOBIN 31.9 pg (27.0-31.0); MEAN CORPUSCULAR HGB CONC 33.4 g/dL (32.0-36.0); MEAN CORPUSCULAR VOLUME 95.7 fL (80.0-94.0); MONOCYTES # (AUTO) 0.5 10^3/uL (0.0-1.0); MONOCYTES % (AUTO) 11.8 %; NEUTROPHILS # (AUTO) 2.9 10^3/uL (1.5-6.6); NEUTROPHILS % (AUTO) 67.8 %; NUCLEATED RED BLOOD CELLS AUTO 0.1 /100WBC; RED BLOOD COUNT 4.11 10^6/uL (4.70-6.10); RED CELL DISTRIBUTION WIDTH 18.1 % (12.0-15.0); UNCORRECTED WHITE BLOOD COUNT 4.3 x10^3/uL; WHITE BLOOD COUNT 4.3 x10^3/uL (4.8-10.8)
[2016-12-01] MEDS: SUCRALFATE 1 GM/10 ML UDC PO SCH ×4 (06:05→21:02)
[2016-12-01] MEDS: SODIUM CHLORIDE FLUSH 0.9% 10 ML SYRINGE IVP SCH ×3 (06:05→20:57)
[2016-12-01 06:21] LABS: ALBUMIN/GLOBULIN RATIO 1.6 (1.0-2.2); CALCIUM 9.5 mg/dL (8.5-10.3); CREATININE 0.9 mg/dL (0.6-1.2); TOTAL PROTEIN 6.9 g/dL (6.7-8.2)
[2016-12-01] MEDS ORDERED: MULTIVITAMIN 10 ML, THIAMINE INJ 100 MG, FOLIC ACID INJ 1 MG in SODIUM CHLORIDE 0.9% 1,... IV SCH (09:00)
[2016-12-01] MEDS ORDERED: THIAMINE 100 MG TABLET PO SCH (09:00)
[2016-12-01] MEDS: FAMOTIDINE 20 MG TABLET PO SCH (09:25)
[2016-12-01] MEDS: ENOXAPARIN 40 MG/0.4 ML SYRINGE SUBQ SCH (09:25)
[2016-12-01] MEDS: POLYETHYLENE GLYCOL 3350 17 GM PACKET PO SCH (09:25)
[2016-12-01] MEDS: PROPRANOLOL 40 MG TABLET PO SCH ×2 (09:26→20:56)
[2016-12-01] MEDS: LORazepam 0.5 MG TABLET PO PRN ×3 (12:14→20:56)
--- NOTE | 2016-12-01 13:26 | PROVIDER PROGRESS NOTE ---
Subjective - Prog Note Date Prog Note Date: 12/01/16 Prog Note Time: 13:24 - Subjective Pt reports feeling: Improved (pt state he feels better) Objective - Vital Signs/Intake & Output Vital Signs: Vital Signs x48h Temp Pulse Pulse Resp BP Pulse Ox 12/01/16 10:20 75 12/01/16 08:08 36.9 C 70 16 121/86 H 94 12/01/16 05:35 36.5 C 75 16 117/80 94 Intake & Output: Intake & Output 11/28/16 11/29/16 11/30/16 12/01/16 23:59 23:59 23:59 23:59 Intake Total 1250 720 Output Total 300 Balance 1250 420 - Objective General Appearance: positive: No acute distress, Alert Eyes Bilateral: positive: Normal inspection, PERRL ENT: positive: ENT inspection nml, No signs of dehydration Neck: positive: Nml inspection, Trachea midline Respiratory: positive: Chest non-tender, No respiratory distress, Breath sounds nml Cardiovascular: positive: Regular rate & rhythm, No murmur Peripheral Pulses: 2+ Radial (R), 2+ Radial (L), 2+ Dorsalis pedis (R), 2+ Dorsalis pedis (L) Abdomen: positive: Non-tender, Nml bowel sounds, No distention Back: positive: Nml inspection Skin: positive: Color nml, Warm, Dry Extremities: positive: Non-tender, Full ROM Neurologic/Psychiatric: positive: CN's nml (2-12), Motor nml, Sensation nml, Other (oriented x2) - Lab Results Fish Bones: 12/01/16 05:31 12/01/16 05:31 Other Labs: Lab Results x24hrs 12/01/16 12/01/16 12/01/16 Range/Units 05:31 05:31 05:31 WBC 4.3 L (4.8-10.8) x10^3/uL RBC 4.11 L (4.70-6.10) 10^6/uL Hgb 13.1 L (14.0-18.0) g/dL Hct 39.4 L (42.0-52.0) % MCV 95.7 H (80.0-94.0) fL MCH 31.9 H (27.0-31.0) pg MCHC 33.4 (32.0-36.0) g/dL RDW 18.1 H (12.0-15.0) % Plt Count 160 (130-450) 10^3/uL MPV 8.0 (7.4-11.4) fL Neut # 2.9 (1.5-6.6) 10^3/uL Lymph # 0.8 L (1.5-3.5) 10^3/uL [place] # 0.5 (0.0-1.0) 10^3/uL Eos # 0.0 (0.0-0.7) 10^3/uL Baso # 0.0 (0.0-0.1) 10^3/uL Absolute Nucleated RBC 0.00 x10^3/uL Nucleated RBCs 0.1 /100WBC Manual Slide Review WBC Morphology (NORMAL) Platelet Estimate (NORMAL) Platelet Morphology (NORMAL) RBC Morph Micro Appear (NORMAL) PT (9.9-12.6) secs INR (0.8-1.2) Sodium 141 (135-145) mmol/L Potassium 4.0 (3.5-5.0) mmol/L Chloride 102 (101-111) mmol/L Carbon Dioxide 29 (21-32) mmol/L Anion Gap 10.0 (6-13) BUN 20 (6-20) mg/dL Creatinine 0.9 (0.6-1.2) mg/dL Estimated GFR (MDRD) 89 (>89) Glucose 124 H (70-100) mg/dL Calcium 9.5 (8.5-10.3) mg/dL Magnesium (1.7-2.8) mg/dL Total Bilirubin 1.0 (0.2-1.0) mg/dL AST 88 H (10-42) IU/L ALT 100 H (10-60) IU/L Alkaline Phosphatase 67 (42-121) IU/L Total Protein 6.9 (6.7-8.2) g/dL Albumin 4.2 (3.2-5.5) g/dL Globulin 2.7 (2.1-4.2) g/dL Albumin/Globulin Ratio 1.6 (1.0-2.2) Lipase 80 H (22-51) U/L 11/30/16 11/30/16 11/30/16 Range/Units 14:38 14:38 14:38 WBC 2.7 L (4.8-10.8) x10^3/uL RBC 4.45 L (4.70-6.10) 10^6/uL Hgb 14.3 (14.0-18.0) g/dL Hct 42.6 (42.0-52.0) % MCV 95.9 H (80.0-94.0) fL MCH 32.2 H (27.0-31.0) pg MCHC 33.6 (32.0-36.0) g/dL RDW 18.4 H (12.0-15.0) % Plt Count 184 (130-450) 10^3/uL MPV 7.2 L (7.4-11.4) fL Neut # 2.1 (1.5-6.6) 10^3/uL Lymph # 0.5 L (1.5-3.5) 10^3/uL [place] # 0.1 (0.0-1.0) 10^3/uL Eos # 0.0 (0.0-0.7) 10^3/uL Baso # 0.0 (0.0-0.1) 10^3/uL Absolute Nucleated RBC 0.00 x10^3/uL Nucleated RBCs 0.1 /100WBC Manual Slide Review Indicated WBC Morphology NORMAL APPEARANCE (NORMAL) Platelet Estimate NORMAL (130-450,000) (NORMAL) Platelet Morphology RARE GIANT PLATELETS (NORMAL) RBC Morph Micro Appear 1+ TARGET CELLS (NORMAL) PT 10.3 (9.9-12.6) secs INR 0.9 (0.8-1.2) Sodium 141 (135-145) mmol/L Potassium 3.5 (3.5-5.0) mmol/L Chloride 102 (101-111) mmol/L Carbon Dioxide 28 (21-32) mmol/L Anion Gap 11.0 (6-13) BUN 19 (6-20) mg/dL Creatinine 1.0 (0.6-1.2) mg/dL Estimated GFR (MDRD) 78 L (>89) Glucose 175 H (70-100) mg/dL Calcium 9.8 (8.5-10.3) mg/dL Magnesium 1.9 (1.7-2.8) mg/dL Total Bilirubin 1.2 H (0.2-1.0) mg/dL AST 171 H (10-42) IU/L ALT 144 H (10-60) IU/L Alkaline Phosphatase 82 (42-121) IU/L Total Protein 8.2 (6.7-8.2) g/dL Albumin 5.1 (3.2-5.5) g/dL Globulin 3.1 (2.1-4.2) g/dL Albumin/Globulin Ratio 1.6 (1.0-2.2) Lipase (22-51) U/L Assessment/Plan - Problem List (1) Altered mental status Impression: pt's vital and lab reviewed. Pt had a slight elevated Lipase. Pt had history pancreatitis, alcoholic abuse. Hold regular diet change to liquid diet. Pt request to has something to be ate. NS IVF 125CC, recheck lipase tomorrow. physical therapy report is pending. Pt is living with his mother now. Plan to D/ C to SNF or home. Pt feels more deprssive/anxiety, reconcile his home meds Ativan and seroquael Qualifiers: Altered mental status type: disorientation Qualified Code(s): R41.0 - Disorientation, unspecified
[2016-12-01] MEDS: SODIUM CHLORIDE 0.9% 1,000 ML IV SCH ×2 (14:31→22:19)
[2016-12-01] MEDS: QUEtiapine 100 MG TABLET PO SCH (20:56)
[2016-12-01] MEDS: GABAPENTIN 300 MG CAPSULE PO SCH (20:56)
[2016-12-02 05:42] LABS: BASOPHILS % (AUTO) 0.9 %; EOSINOPHILS # (AUTO) 0.2 10^3/uL (0.0-0.7); EOSINOPHILS % (AUTO) 5.3 %; HCT - HEMATOCRIT 39.6 % (42.0-52.0); LYMPHOCYTES # (AUTO) 1.8 10^3/uL (1.5-3.5); MEAN CORPUSCULAR HEMOGLOBIN 31.9 pg (27.0-31.0); MEAN CORPUSCULAR HGB CONC 32.9 g/dL (32.0-36.0); MEAN CORPUSCULAR VOLUME 96.7 fL (80.0-94.0); MEAN PLATELET VOLUME 8.2 fL (7.4-11.4); MONOCYTES # (AUTO) 0.2 10^3/uL (0.0-1.0); NEUTROPHILS # (AUTO) 1.1 10^3/uL (1.5-6.6); NEUTROPHILS % (AUTO) 33.8 %; NUCLEATED RED BLOOD CELLS AUTO 0.1 /100WBC; RED BLOOD COUNT 4.09 10^6/uL (4.70-6.10); RED CELL DISTRIBUTION WIDTH 17.9 % (12.0-15.0); UNCORRECTED WHITE BLOOD COUNT 3.4 x10^3/uL; WHITE BLOOD COUNT 3.4 x10^3/uL (4.8-10.8)
[2016-12-02 05:57] LABS: ALBUMIN/GLOBULIN RATIO 1.4 (1.0-2.2); BILIRUBIN,TOTAL 0.6 mg/dL (0.2-1.0); CALCIUM 9.1 mg/dL (8.5-10.3); CREATININE 0.8 mg/dL (0.6-1.2); POTASSIUM 3.9 mmol/L (3.5-5.0); TOTAL PROTEIN 6.4 g/dL (6.7-8.2)
[2016-12-02] MEDS: SODIUM CHLORIDE FLUSH 0.9% 10 ML SYRINGE IVP SCH ×3 (06:14→21:03)
[2016-12-02] MEDS: LORazepam 0.5 MG TABLET PO PRN ×3 (06:17→21:02)
[2016-12-02] MEDS: SUCRALFATE 1 GM/10 ML UDC PO SCH ×4 (06:17→20:55)
[2016-12-02] MEDS: SODIUM CHLORIDE 0.9% 1,000 ML IV SCH ×3 (06:18→18:25)
--- NOTE | 2016-12-02 07:21 | PROVIDER PROGRESS NOTE ---
Subjective - Prog Note Date Prog Note Date: 12/02/16 Prog Note Time: 07:17 - Subjective Subjective: H/P,notes, data reviewed, old d/c sumary and H/P reviewed Pt had been in ETOH rehab ~ 2003 (inpatient followed by outpt) and reports he even relapsed x 2 Current Medications - Current Medications Current Medications: Active Medications Generic Name Dose Route Start Last Admin Trade Name Freq PRN Reason Stop Dose Admin Acetaminophen 650 mg 11/30/16 13:42 11/30/16 16:28 Tylenol PO 650 mg Q4HR PRN Administration Pain 1 to 4 Diazepam 10 mg 11/30/16 14:08 11/30/16 20:54 Valium Inj IVP 10 mg Q30M PRN Administration CIWA>8 Protocol Enoxaparin Sodium 40 mg 12/01/16 09:00 12/01/16 09:25 Lovenox SUBQ 40 mg DAILY ROSIE Administration Famotidine 20 mg 12/01/16 09:00 12/01/16 09:25 Pepcid PO 20 mg DAILY ROSIE Administration Gabapentin 300 mg 11/30/16 21:00 12/01/16 20:56 Neurontin PO 300 mg QPM ROSIE Administration Multivitamins 10 ml/ Thiamine 1,011.2 mls @ 100 mls/hr 12/01/16 09:00 12/01/16 10:55 HCl 100 mg/ Folic Acid 1 mg/ IV 100 mls/hr Sodium Chloride DAILY ROSIE Administration Sodium Chloride 1,000 mls @ 125 mls/hr 12/01/16 13:00 12/02/16 06:18 Normal Saline 0.9% IV 125 mls/hr .Q8H ROSIE Administration Lorazepam 1 mg 12/01/16 11:34 12/02/16 06:17 Ativan PO 1 mg TID PRN Administration Anxiety Ondansetron HCl 4 mg 11/30/16 13:42 Zofran Inj IVP Q6HR PRN Nausea / Vomiting Polyethylene Glycol 17 gm 12/01/16 09:00 12/01/16 09:25 Miralax PO 17 gm DAILY ROSIE Administration Propranolol HCl 60 mg 11/30/16 21:00 12/01/16 20:56 Inderal PO 60 mg BID ROSIE Administration Quetiapine Fumarate 800 mg 12/01/16 21:00 12/01/16 20:56 Seroquel PO 800 mg QPM ROSIE Administration Sodium Chloride 10 ml 11/30/16 13:42 Normal Saline Flush 0.9% IVP PRN PRN NEEDED PER PROVIDER ORDERS Sodium Chloride 10 ml 11/30/16 14:00 12/02/16 06:14 Normal Saline Flush 0.9% IVP Not Given Q8HR ROSIE Sucralfate 1 gm 11/30/16 21:00 12/02/16 06:17 Carafate PO 1 gm ACHS ROSIE Administration Bupropion HCl [Bupropion HCl Sr] 200 mg PO DAILY 05/23/16 Gabapentin 300 mg PO QPM 05/23/16 Hydroxyzine Pamoate 50 - 150 mg PO QPM 05/23/16 Hydroxyzine Pamoate 50 mg PO 0900,1600 05/23/16 Propranolol [Inderal] 60 mg PO BID 05/23/16 Mirtazapine 7.5 mg PO QPM 08/28/16 Prazosin HCl [Minipress] 2 - 4 mg PO QPM 08/28/16 Quetiapine Fumarate [Seroquel] 800 mg PO QPM 08/28/16 Objective - Vital Signs/Intake & Output Reviewed Vital Signs: Yes Vital Signs: Vital Signs x48h Temp Pulse Resp BP BP Pulse Ox 12/02/16 05:23 36.4 C L 52 L 18 107/76 94 12/02/16 00:03 36.5 C 65 18 112/78 96 Intake & Output: Intake & Output 11/29/16 11/30/16 12/01/16 12/02/16 23:59 23:59 23:59 23:59 Intake Total 1250 4104 1060 Output Total 300 Balance 1250 3804 1060 - Objective General Appearance: positive: No acute distress Eyes Bilateral: positive: EOMI Respiratory: positive: No respiratory distress, Breath sounds nml Cardiovascular: positive: Regular rate & rhythm, No murmur Abdomen: positive: Nml bowel sounds, No distention Skin: positive: Warm, Dry Extremities: positive: No pedal edema Neurologic/Psychiatric: positive: Oriented x3, Mood/affect nml, Other (I stood him up myself, even standing at bedside he is clearly imbalanced In bed, rapid alternating movements intact , strength equal bilaterally) - Lab Results Fish Bones: 12/02/16 05:15 12/02/16 13:28 Other Labs: Lab Results x24hrs 12/02/16 12/02/16 12/01/16 Range/Units 05:15 05:15 05:31 WBC 3.4 L (4.8-10.8) x10^3/uL RBC 4.09 L (4.70-6.10) 10^6/uL Hgb 13.0 L (14.0-18.0) g/dL Hct 39.6 L (42.0-52.0) % MCV 96.7 H (80.0-94.0) fL MCH 31.9 H (27.0-31.0) pg MCHC 32.9 (32.0-36.0) g/dL RDW 17.9 H (12.0-15.0) % Plt Count 156 (130-450) 10^3/uL MPV 8.2 (7.4-11.4) fL Neut # 1.1 L (1.5-6.6) 10^3/uL Lymph # 1.8 (1.5-3.5) 10^3/uL [place] # 0.2 (0.0-1.0) 10^3/uL Eos # 0.2 (0.0-0.7) 10^3/uL Baso # 0.0 (0.0-0.1) 10^3/uL Absolute Nucleated RBC 0.00 x10^3/uL Nucleated RBCs 0.1 /100WBC Sodium 144 (135-145) mmol/L Potassium 3.9 (3.5-5.0) mmol/L Chloride 107 (101-111) mmol/L Carbon Dioxide 31 (21-32) mmol/L Anion Gap 6.0 (6-13) BUN 13 (6-20) mg/dL Creatinine 0.8 (0.6-1.2) mg/dL Estimated GFR (MDRD) 102 (>89) Glucose 95 (70-100) mg/dL Calcium 9.1 (8.5-10.3) mg/dL Total Bilirubin 0.6 (0.2-1.0) mg/dL AST 64 H (10-42) IU/L ALT 84 H (10-60) IU/L Alkaline Phosphatase 64 (42-121) IU/L Total Protein 6.4 L (6.7-8.2) g/dL Albumin 3.7 (3.2-5.5) g/dL Globulin 2.7 (2.1-4.2) g/dL Albumin/Globulin Ratio 1.4 (1.0-2.2) Lipase 65 H 80 H (22-51) U/L labs reviewed AST/ALT 147/126>> 171/144>>[id number]>> 64/88 Assessment/Plan - Problem List (1) Alcohol withdrawal Impression: Long hx of ETOH use since teen yrs; tnds to use w/ any stress per records (08 w / work laid offTad, 09 , dad's , CIWA scores low overnight, no valium needed (and 4:10 pm addendeum; CIWA scores continue low) mild transaminitis improving from ETOH withdrawal standpoint stable for d/c but still w/ poor balance/ coordination (see below) abdominal pain is diffuse (and patient states chronic), lipase (and his diffuse pain) would not meet criteria for pancreatitis. will change to regular diet and reeval, d/c banana bag IV (and thus far 4p; tolerated regular diet) start Vit)has folate) and thiamine PO d/c tele GERD: is on PPI (omeprazole) at home, on H2 carolyn here; will resume PPI on d/c (2) Impaired gait Impression: Imbalance superimposed on ? 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) he uses ibuprofen, tylenol ("or I just go without " at home later he indicated he takes vicodin or ultram; but not seen on his summary of home meds given his history of drug overdose/drug interactions will only use nsaid (4) Depression with anxiety Impression: (hx of accidental drug overdose and SI (in past) mood stable , interactive (does have a difficult hx, ( at 41, dogs , Dad in traffic and he did CPR) continue his home meds Seroquel 800 po q pm, prn TID ativan 1mg, bupropion 200 mg daily(not on here, but he does take at home; will readd) (5) HTN (hypertension) Impression: continue propranolol (6) Hyperglycemia Impression: elevated glucose on admit (175) a1C 4.8, last glucoses have been low d/c fingersticks
[2016-12-02] MEDS: FAMOTIDINE 20 MG TABLET PO SCH (09:24)
[2016-12-02] MEDS: PROPRANOLOL 40 MG TABLET PO SCH ×2 (09:25→20:55)
[2016-12-02] MEDS: ENOXAPARIN 40 MG/0.4 ML SYRINGE SUBQ SCH (09:25)
[2016-12-02] MEDS: POLYETHYLENE GLYCOL 3350 17 GM PACKET PO SCH (09:25)
[2016-12-02] MEDS: PRENATAL VITAMIN TABLET PO SCH (10:23)
[2016-12-02] MEDS: THIAMINE 100 MG TABLET PO SCH (10:23)
[2016-12-02 13:47] LABS: CALCIUM 8.8 mg/dL (8.5-10.3); CREATININE 0.9 mg/dL (0.6-1.2); POTASSIUM 3.6 mmol/L (3.5-5.0)
[2016-12-02] MEDS: IBUPROFEN 400 MG TABLET PO PRN (14:14)
[2016-12-02] MEDS: GABAPENTIN 300 MG CAPSULE PO SCH (20:54)
[2016-12-02] MEDS: QUEtiapine 100 MG TABLET PO SCH (20:54)
[2016-12-03] MEDS: SUCRALFATE 1 GM/10 ML UDC PO SCH ×4 (06:16→20:28)
[2016-12-03] MEDS: LORazepam 0.5 MG TABLET PO PRN ×3 (06:16→20:23)
[2016-12-03] MEDS: SODIUM CHLORIDE 0.9% 1,000 ML IV SCH (06:17)
[2016-12-03] MEDS: SODIUM CHLORIDE FLUSH 0.9% 10 ML SYRINGE IVP SCH ×3 (06:25→20:28)
[2016-12-03] MEDS: FAMOTIDINE 20 MG TABLET PO SCH (09:15)
[2016-12-03] MEDS: buPROPion SR 100 MG TABLET PO SCH (09:15)
[2016-12-03] MEDS: POLYETHYLENE GLYCOL 3350 17 GM PACKET PO SCH (09:15)
[2016-12-03] MEDS: PRENATAL VITAMIN TABLET PO SCH (09:15)
[2016-12-03] MEDS: ENOXAPARIN 40 MG/0.4 ML SYRINGE SUBQ SCH (09:15)
[2016-12-03] MEDS: THIAMINE 100 MG TABLET PO SCH (09:16)
[2016-12-03] MEDS: PROPRANOLOL 40 MG TABLET PO SCH ×2 (09:16→20:22)
[2016-12-03] MEDS: IBUPROFEN 400 MG TABLET PO PRN (09:24)
--- NOTE | 2016-12-03 12:54 | PROVIDER PROGRESS NOTE ---
Subjective - Prog Note Date Prog Note Date: 12/03/16 Prog Note Time: 12:52 - Subjective Subjective: no new complaints overnight no tremor denies vertigo, states if hyperextends neck when standing, that can cause imbalance, no associated vertigo. No such symptoms elicitied when sitting I contacted Dr. Chase Beltran office (his neurologist at );obtained records from a follow up clinic note as follow up for idiopathic progressive neuropathy from 04/14/19 (following 02/11-02/21 admission at for withdrawal, confusion and difficult ambulation; He notes: Acute on chronic gait changes due to ETOH abuse, cerebellar degenerative and peripheral neuropathy Dr. Beltran also notes that the patient is a somewhat tangential historian as is noted here was his last note indicates that he is being followed for an axonal neuropathy with potential etiologies including #1 alcohol abuse versus hereditary neuropathy given his short foot high arched and how her toes and family history and notes in his assessment that the francois issue for slowing the progression that is controllable is complete alcohol cessation. At that visit his gait and cognition were significantly better compared to the prior visit when sent to ED for admission He had genetic testing a litany of testing for genes associated with a hereditary neuropathy were done Result inin a the and willdicates he tested negative although he carried a variant of uncertain significance in one of the tang groups tested in this April 14 neurology followup appointment which was from that ten-day February admission [facility] a short inpatient rehabilitation stay had also been rehabilitation recommended however an inpatient bed supported by his insurance wouldn't was not able to be found at that time. REcommendations to him were; entirely abstain from ETOH is, genetic testing per Dr Osorio (done), PT for balance, aandbalanced diet, continued use of cane/ or walker due to fall risk (and f/u and3-4 mos) and a Objective - Vital Signs/Intake & Output Reviewed Vital Signs: Yes Vital Signs: Vital Signs x48h Temp Pulse Resp BP Pulse Ox 12/03/16 09:00 36.8 C 72 16 111/77 99 Intake & Output: Intake & Output 11/30/16 12/01/16 12/02/16 12/03/16 23:59 23:59 23:59 23:59 Intake Total 1250 4104 3778 1613 Output Total 300 Balance 1250 3804 3778 1613 - Objective General Appearance: positive: No acute distress, Other (seen walking with PT in halls earlier now sitting up in chair eating lunch, alert, oriented , appropriate) Respiratory: positive: No respiratory distress, Breath sounds nml (the). negative: Chest non-tender Cardiovascular: positive: Regular rate & rhythm, No murmur Skin: positive: Warm, Dry (a), Other (very slight purpuric discoloration both feet (chronic)) Extremities: negative: Pedal edema ( and a) Neurologic/Psychiatric: positive: Oriented x3, Mood/affect nml (somewhat slow deliberate speech, but cooperative, not and in a for a tangential at this time the and a the is a no), Other (rapid alternating movements tested yesterday 12/03 ; normal sitting up / eating, no tremor, no discoordination; gait awkward still as noted in PT note) - Lab Results Fish Bones: 12/02/16 05:15 12/02/16 13:28 Other Labs: Lab Results x24hrs 12/02/16 12/02/16 12/02/16 Range/Units 13:28 11:25 07:32 Sodium 140 (135-145) mmol/L Potassium 3.6 (3.5-5.0) mmol/L Chloride 105 (101-111) mmol/L Carbon Dioxide 28 (21-32) mmol/L Anion Gap 7.0 (6-13) BUN 12 (6-20) mg/dL Creatinine 0.9 (0.6-1.2) mg/dL Estimated GFR (MDRD) 89 (>89) Glucose 91 (70-100) mg/dL POC Whole Bld Glucose 87 84 (70 - 100) mg/dL Calcium 8.8 (8.5-10.3) mg/dL 12/01/16 12/01/16 12/01/16 Range/Units 20:26 16:36 11:38 Sodium (135-145) mmol/L Potassium (3.5-5.0) mmol/L Chloride (101-111) mmol/L Carbon Dioxide (21-32) mmol/L Anion Gap (6-13) BUN (6-20) mg/dL Creatinine (0.6-1.2) mg/dL Estimated GFR (MDRD) (>89) Glucose (70-100) mg/dL POC Whole Bld Glucose 94 86 110 H (70 - 100) mg/dL Calcium (8.5-10.3) mg/dL 12/01/16 11/30/16 11/30/16 Range/Units 07:21 20:47 16:38 Sodium (135-145) mmol/L Potassium (3.5-5.0) mmol/L Chloride (101-111) mmol/L Carbon Dioxide (21-32) mmol/L Anion Gap (6-13) BUN (6-20) mg/dL Creatinine (0.6-1.2) mg/dL Estimated GFR (MDRD) (>89) Glucose (70-100) mg/dL POC Whole Bld Glucose 144 H 189 H 241 H (70 - 100) mg/dL Calcium (8.5-10.3) mg/dL Assessment/Plan - Problem List (1) Alcohol withdrawal Impression: No ETOH WD symptoms last 24 hrs, d/c CIWA, tolerating PO regular diet, (no pancreatitis), d/c IVF medically stable for D/C but still unsafe ambulation per PT eval Records as above from this neurologist note similar course with a 02/11 admit at [facility] with PT and rehab advised discussed with [place] /(PT) and SW and is 12/02 Long hx of ETOH use since teen yrs; tnds to use w/ any stress per records ( 08 w/ work laid [facility], 09 , dad's , CIWA scores low overnight, no valium needed (and 4:10 pm addendeum; CIWA scores continue low) mild transaminitis improving from ETOH withdrawal standpoint stable for d/c but still w/ poor balance/ coordination (see below) 2) Impaired gait Impression: As per Dr Beltran neuro [facility]; multifactorial Acute on chronic gait changes due to ETOH abuse, cerebellar degenerative and peripheral neuropathy reevaluated by PT today, he is still unsafe SNF vs further PT here (he IS improved c/w yesterday) (3) Chronic pain disorder Impression: controlled on gabapentin, prn NSAID here 12/02 (hx incompletely healed R hip per records, and peripheral neuropathy (from hx of Guillain -[place]) he uses ibuprofen, tylenol ("or I just go without " at home later he indicated he takes vicodin or ultram; but not seen on his summary of home meds given his history of drug overdose/drug interactions will only use nsaid (4) Depression with anxiety Impression: mood stable on home meds; continue; patient open and conversant Propranolol per Dr. Beltran 06/24 (neurology) f/u notes; not for blood pressure management rather for anxiety he had been transitioned from metoprolol to propranolol and hopes of tapering off of Ativan at the time Cymbalta was added for chronic right hip pain however he is no longer on unclear when that was discontinued here 12/02(hx of accidental drug overdose and SI (in past) mood stable , interactive (does have a difficult hx, ( at 41, dogs , Dad in traffic and he did CPR) continue his home meds Seroquel 800 po q pm, prn TID ativan 1mg, bupropion 200 mg daily(not on here, but he does take at home; will readd) 5) GERD: is on PPI (omeprazole) at home, on H2 carolyn here (w/o problems); will resume PPI on d/c PCP can reeval if still needs PPI
[2016-12-03] MEDS: QUEtiapine 100 MG TABLET PO SCH (20:22)
[2016-12-03] MEDS: GABAPENTIN 300 MG CAPSULE PO SCH (20:23)
[2016-12-04] MEDS: IBUPROFEN 400 MG TABLET PO PRN ×2 (00:13→12:26)
[2016-12-04] MEDS: SODIUM CHLORIDE FLUSH 0.9% 10 ML SYRINGE IVP SCH ×2 (06:15→13:53)
[2016-12-04] MEDS: SUCRALFATE 1 GM/10 ML UDC PO SCH ×2 (06:15→10:25)
[2016-12-04 08:08] VITALS: BP 124/87
[2016-12-04] MEDS: ENOXAPARIN 40 MG/0.4 ML SYRINGE SUBQ SCH (10:16)
[2016-12-04] MEDS: POLYETHYLENE GLYCOL 3350 17 GM PACKET PO SCH (10:16)
[2016-12-04] MEDS: buPROPion SR 100 MG TABLET PO SCH (10:16)
[2016-12-04] MEDS: PRENATAL VITAMIN TABLET PO SCH (10:16)
[2016-12-04] MEDS: LORazepam 0.5 MG TABLET PO PRN ×3 (10:17→17:34)
[2016-12-04] MEDS: PROPRANOLOL 40 MG TABLET PO SCH (10:17)
[2016-12-04] MEDS: THIAMINE 100 MG TABLET PO SCH (10:17)
[2016-12-04] MEDS: FAMOTIDINE 20 MG TABLET PO SCH (10:17)
--- NOTE | 2016-12-09 10:00 | DISCHARGE SUMMARY ---
DATE OF ADMISSION: 11/30/2016 DATE OF DISCHARGE: 12/04/2016 PRIMARY CARE PROVIDER: CANDICE Kevin PRIMARY DISCHARGE DIAGNOSES 1. Alcohol withdrawal. 2. Acute on chronic gait changes due to alcohol use, cerebellar degenerative and peripheral neuropath y. 3. Idiopathic progressive neuropathy. DISCHARGE MEDICATIONS 1. Multivitamin 1 tablet daily. 2. Thiamine 100 mg once daily. 3. Gabapentin 300 mg each night at bedtime. 4. Quetiapine 800 mg each night at bedtime. 5. Propranolol 60 mg p.o. twice daily. 6. Lorazepam 1 mg orally 3 times daily if needed for anxiety. 7. Omeprazole 20 mg once daily. 8. Bupropion 200 mg once daily. BRIEF HOSPITAL COURSE: Please see Dr. Julio Hernandez's initial history and physical dated November 30 for co mplete details. 1. The patient is a 51-year-old male who had a long history of alcohol use and substance abuse due to many interpersonal problems, depression, and anxiety. He was admitted when he actually called the EM Ts to evaluate his mother, but they found him to be impaired and brought him instead. He indicated he actually had stopped drinking the day prior despite daily alcohol use. He was brought in for alcohol withdrawal. His withdrawal course was quite unremarkable, requiring very few doses of Ativan; howeve r, he had an impaired gait. 2. Acute on chronic gait changes due to the effects of alcohol on his chronic idiopathic neuropathy. He was evaluated by Physical Therapy and even after his alcohol withdrawal course was complete, they found him to still be considerably imbalanced and dyscoordinated, although he was improved from admis nereyda. In obtaining records from Dr. Chase Beltran from [facility] neurology department who sees him and evaluates him every 3 months, he notes that the patient has a progressive idiopathic neuropathy and the single modifiable risk factors for progression of this is his ongoing alcohol use and he is advised to abstain entirely. Most likely his impaired gait is again related to his alcohol use and medications. He was accepted to inpatient rehab after evaluation by Physical Therapy, and wa s discharged there on December 04. PHYSICAL EXAMINATION ON DISCHARGE VITAL SIGNS: Afebrile, 36.7. Heart rate 65. Blood pressure 124/87. Respiratory rate 20. Oxygen satura tion 97% on room air. GENERAL: The patient is a very pleasant and quite tall man sitting in a chair, later seen ambulating in the gandara using his cane with a somewhat awkward gait. He is alert, oriented and appropriate, altho ugh he has a somewhat deliberate and tangential speech pattern giving very much thoughtful detail int o any response although again he is oriented. CHEST: Clear to auscultation with unlabored respirations. HEART: Regular S1, S2 with no appreciable extra sounds. ABDOMEN: Soft with positive bowel sounds and nontender. EXTREMITIES: Notable for no edema. He does have some lower extremity dependent cyanosis, which he rep orts is chronic. NEUROLOGIC: His strength is symmetric bilaterally and his rapid alternating movements are intact. JOB #: [id number] EXT JOB #:[id number]
== END 2016-12-04 17:45 | DRG 897 ==
LOC: EDUNIT# → ED 06:25 → MS 13:42
PROVIDERS: ADMIT Nurse Practitioner Gerontology; ATTEND Nurse Practitioner
DX: F10.288 Alcohol dependence with other alcohol-induced disorder (principal); G62.1 Alcoholic polyneuropathy; R26.9 Unspecified abnormalities of gait and mobility; G31.89 Other specified degenerative diseases of nervous system; T84.84XS Pain due to internal orthopedic prosthetic devices, implants and grafts, sequela; G89.28 Other chronic postprocedural pain; Z96.641 Presence of right artificial hip joint; G60.9 Hereditary and idiopathic neuropathy, unspecified; F41.8 Other specified anxiety disorders; I10 Essential (primary) hypertension; F19.10 Other psychoactive substance abuse, uncomplicated; F13.10 Sedative, hypnotic or anxiolytic abuse, uncomplicated; R32 Unspecified urinary incontinence; K21.9 Gastro-esophageal reflux disease without esophagitis; R73.9 Hyperglycemia, unspecified; R74.0 Nonspecific elevation of levels of transaminase and lactic acid dehydrogenase [LDH]; M19.90 Unspecified osteoarthritis, unspecified site; Z66 Do not resuscitate; Z79.891 Long term (current) use of opiate analgesic; Z79.899 Other long term (current) drug therapy; Z86.69 Personal history of other diseases of the nervous system and sense organs; Z87.891 Personal history of nicotine dependence
CPT/HCPCS: 36415; 80048; 80053; 80306; 80320; 81001; 81003; 83690; 83735; 85025; 85610; 87086; 96365; 96375; 99284; 99285

== ENCOUNTER 2016-12-18 10:06 | Outpatient (CLI) | payer MEDICAID | END 2016-12-18 10:07 | disposition critical access hospital (66) | LOC: EMS 10:06 | PROVIDERS: ATTEND Surgery | DX: R47.81 Slurred speech (principal); R29.810 Facial weakness; R53.1 Weakness; R40.0 Somnolence | CPT/HCPCS: A0425; A0429 ==

== ENCOUNTER 2016-12-18 10:22 | Emergency (ER) | payer MEDICAID ==
--- NOTE | 2016-12-18 10:54 | ED Physician Documentation ---
PD HPI SYNCOPE - Stated complaint Stated Complaint: SYNCOPE - Chief complaint Chief Complaint: Neuro - History obtained from History obtained from: Patient, EMS - History of Present Illness Witnessed: Witnessed Recently seen: Clinic (Sent here from dental clinic.) - Additional information Additional information: The patient is a 51-year-old male who arrives via ambulance from a dental clinic where he had been falling asleep while in the dental chair. Facial droop raised the concern of possible stroke. History is not able to be reliably obtained from the patient because of drowsiness. Review of his past medical history reveals recent hospitalization here on 11/30/2016 for alcohol withdrawal and ataxia. He has a history of progressive idiopathic neuropathy and pancreatitis, in addition to alcoholism. He was discharged from the hospital here to a rehabilitation facility, from which he was discharged yesterday. He currently lives with his mother who took him to the dental office this morning with a right upper toothache. The patient denies headache, chest pain, cough, shortness of breath, abdominal pain, nausea, or vomiting. He states he has not had alcohol for one month. His prescription medications include gabapentin, and he states he may have taken more than the prescribed amount. He also admits to getting a prescription for [place] which he took last night and again this morning. He denies suicidal ideation. Review of his medical records reveals a hospitalization in July of this year with an accidental drug overdose. Review of Systems Constitutional: reports: Fatigue. denies: Fever Eyes: denies: Decreased vision Nose: denies: Congestion Throat: denies: Sore throat Cardiac: denies: Chest pain / pressure Respiratory: denies: Dyspnea, Cough GI: denies: Abdominal Pain, Nausea, Vomiting : denies: Dysuria Skin: denies: Rash Neurologic: reports: Generalized weakness, Syncope. denies: Focal weakness, Numbness, Seizure, Headache PD PAST MEDICAL HISTORY - Past Medical History Cardiovascular: Hypertension Respiratory: None, Sleep apnea Neuro: Peripheral neuropathy, Tremors, Other Endocrine/Autoimmune: None GI: GERD, Pancreatitis : Incontinence HEENT: None Psych: Depression, Anxiety Musculoskeletal: Osteoarthritis Derm: None - Past Surgical History Past Surgical History: Yes Ortho: Hip replacement, Arthroscopic surgery HEENT: Tracheostomy - Present Medications Home Medications: Ambulatory Orders Medication Instructions Recorded Confirmed Bupropion HCl [Bupropion HCl Sr] 200 mg PO DAILY 05/23/16 12/18/16 Gabapentin 300 mg PO QPM 05/23/16 12/18/16 Hydroxyzine Pamoate 50 - 150 mg PO QPM 05/23/16 12/18/16 Hydroxyzine Pamoate 50 mg PO 0900,1600 05/23/16 12/18/16 Propranolol [Inderal] 60 mg PO BID 05/23/16 12/18/16 Mirtazapine 7.5 mg PO QPM 08/28/16 12/18/16 Prazosin HCl [Minipress] 2 - 4 mg PO QPM 08/28/16 12/18/16 Quetiapine Fumarate [Seroquel] 800 mg PO QPM 08/28/16 12/18/16 Folic Acid 1 mg PO DAILY #30 tablet 08/30/16 12/18/16 Multivitamin [Theragran] 1 tab PO DAILYWM #30 tablet 08/30/16 12/18/16 Thiamine [Vitamin B-1] 100 mg PO DAILY #30 tablet 08/30/16 12/18/16 Sucralfate 1 gm PO ACHS #60 tablet 09/11/16 12/18/16 Lorazepam [Ativan] 1 mg PO TID PRN #7 tablet 09/16/16 12/18/16 Omeprazole [PriLOSEC] 20 mg PO DAILY #14 capsule 09/16/16 12/18/16 - Allergies Allergies/Adverse Reactions: Allergies Allergy/AdvReac Type Severity Reaction Status Date / Time lisinopril Allergy Mild Edema Verified 11/30/16 06:30 - Social History Does the pt smoke?: No Smoking Status: Former smoker Does the pt drink ETOH?: Yes Does the pt have substance abuse?: Yes - Immunizations Immunizations are current?: Yes Immunizations: Other immun not current - POLST Patient has POLST: No POLST Status: DNR (pt clearly state to me it is DNR, Pt's mother at the bedside did not say no.) PD ED PE NORMAL - Vitals Vital signs reviewed: Yes (Diastolic hypertension.) - General General: Other (Drowsy, but easily arousable, speaking with slurred speech.) - HEENT HEENT: Atraumatic, PERRL, EOMI, Pharynx benign, Other (Facial asymmetry is noted , without facial droop being positively identified.) - Neck Neck: Supple, no meningeal sign, No adenopathy, No JVD - Cardiac Cardiac: RRR, No murmur - Respiratory Respiratory: No respiratory distress, Clear bilaterally - Abdomen Abdomen: Soft, Non tender, No organomegaly - Back Back: No CVA TTP - Derm Derm: No rash - Extremities Extremities: No edema, No calf tenderness / cord - Neuro Neuro: Other (Drowsy but arousable to voice stimulation. Slurred speech. Unable to maintain focus on answering questions. Generalized weakness, without focal motor or deficit detected.) Results - Vitals Vitals: Vital Signs - 24 hr 12/18/16 12/18/16 13:04 14:35 Heart Rate 68 66 Respiratory 18 18 Rate Blood Pressure 115/86 H 112/84 H O2 Saturation 100 100 Oxygen O2 Source Room air - Labs Labs: Laboratory Tests 12/18/16 12/18/16 12/18/16 11:18 11:18 13:50 WBC 4.7 L RBC 4.21 L Hgb 13.6 L Hct 39.7 L MCV 94.4 H MCH 32.2 H MCHC 34.1 RDW 15.5 H Plt Count 258 MPV 7.5 Neut # 2.5 Lymph # 1.4 L Carver # 0.5 Eos # 0.2 Baso # 0.0 Absolute Nucleated RBC 0.00 Nucleated RBCs 0.1 Sodium 139 Potassium 4.1 Chloride 102 Carbon Dioxide 29 Anion Gap 8.0 BUN 13 Creatinine 1.0 Estimated GFR (MDRD) 78 L Glucose 100 Calcium 9.9 Total Bilirubin 0.7 AST 30 ALT 43 Alkaline Phosphatase 61 Total Protein 8.1 Albumin 4.6 Globulin 3.5 Albumin/Globulin Ratio 1.3 Lipase 19 L Urine Color YELLOW Urine Clarity CLEAR Urine pH 6.0 Ur Specific [place] 1.010 Urine Protein NEGATIVE Urine Glucose (UA) NEGATIVE Urine Ketones NEGATIVE Urine Occult Blood NEGATIVE Urine Nitrite NEGATIVE Urine Bilirubin NEGATIVE Urine Urobilinogen 0.2 (NORMAL) Ur Leukocyte Esterase NEGATIVE Ur Microscopic Review NOT INDICATED Urine Culture Comments NOT INDICATED Urine Opiates Screen POSITIVE H Ur Oxycodone Screen NEGATIVE Urine Methadone Screen NEGATIVE Ur Propoxyphene Screen NEGATIVE Ur Barbiturates Screen NEGATIVE Ur Tricyclics Screen POSITIVE H Ur Phencyclidine Scrn NEGATIVE Ur Amphetamine Screen NEGATIVE U Methamphetamines Scrn NEGATIVE U Benzodiazepines Scrn POSITIVE H Urine Cocaine Screen NEGATIVE U Cannabinoids Screen NEGATIVE Ethyl Alcohol < 5.0 - Rads (name of study) Head CT Stroke Protocol Radiology: Prelim report reviewed, EMP read contemporaneously, See rad report ( Generalized age-related cortical atrophic changes without evidence of acute intracranial abnormality. No contraindications to thrombolytic therapy.) PD MEDICAL DECISION MAKING - ED course Complexity details: reviewed old records, reviewed results, re-evaluated patient , considered differential, d/w patient, d/w family ED course: The patient's presentation is significant for somnolence due to opiate and benzodiazepine medication. Because of his initial presentation with concern for possible stroke, a head CT was performed, and it revealed no acute intracranial abnormality. CBC, chemistry panel, urinalysis were all unremarkable. Urine tox screen was positive for opiates, benzodiazepines, and tricyclics. Alcohol level was negative. Treatment in the emergency department included administration of normal saline 1 L IV. During several hours of observation in the emergency department the patient's mental status gradually improved. He became more alert and was able to provide a clearer history of his drug use. He subsequently demonstrates ability to ambulate with a relatively steady gait, given his chronic peripheral neuropathy. I discussed with him and his mother the results of the workup, the importance of better judgment and control over the use of pain medication, as well as potentially worrisome signs or symptoms that should prompt reevaluation in the emergency department. Departure - Departure Disposition: 01 Home, Self Care Clinical Impression: Opiate or related narcotic overdose Qualifiers: Encounter type: initial encounter Injury intent: accidental or unintentional Qualified Code(s): T40.601A - Poisoning by unspecified narcotics, accidental ( unintentional), initial encounter Altered mental status Qualifiers: Altered mental status type: somnolence Qualified Code(s): R40.0 - Somnolence Condition: Stable Instructions: ED Overdose Accidental Follow-Up: Chase Quick MD [Credentialed Staff Provider] - Comments: Refrain from taking larger doses of medications than what is prescribed. Follow up with your primary physician within one to 2 weeks. Call to schedule an appointment. Return to the emergency department if you develop worsening symptoms. Discharge Date/Time: 12/18/16 15:38
--- NOTE | 2016-12-18 11:10 | CT Preliminary Report ---
Exam: CT Head W/O Stroke Protocol IMPRESSION: Generalized age-related cortical atrophic changes without evidence of acute intracranial abnormality. No contraindications to thrombolytic therapy. Findings discussed immediately with Dr. Kincaid by phone on 12/18/2016 at 11:08 AM RADIA The above critical findings were discussed with provider Codi by Dr. Suzanne Chapman at 11:08 hrs on 12/18/16. SITE ID: [id number]
--- NOTE | 2016-12-18 11:12 | CT Report ---
EXAM: CT HEAD EXAM DATE: 12/18/2016 10:47 AM. CLINICAL HISTORY: Left sided facial droop. COMPARISON: None. TECHNIQUE: Multiaxial CT images were obtained from the foramen magnum to the vertex. IV contrast: Non e. Reformats: Coronal. In accordance with CT protocol optimization, one or more of the following dose reduction techniques w ere utilized for this exam: automated exposure control, adjustment of mA and/or KV based on patient s ize, or use of iterative reconstructive technique. FINDINGS: Parenchyma: No intraparenchymal hemorrhage. No evidence of mass, midline shift, or CT findings of acu te infarction. Muhammad-white differentiation is distinct. Extraaxial Spaces: Normal for age. No subdural or epidural collections identified. Ventricles: The ventricles and cortical sulci are enlarged, consistent with age-related tissue loss. Sinuses: Imaged paranasal sinuses, orbits, and mastoids show no significant abnormality. Bones: No evidence of fracture or calvarial defect. Other: Diffuse chronic microangiopathic white matter changes are evident. IMPRESSION: Generalized age-related cortical atrophic changes without evidence of acute intracranial abnormality. No contraindications to thrombolytic therapy. Findings discussed immediately with Dr. Kincaid by phone on 12/18/2016 at 11:08 AM RADIA The above critical findings were discussed with provider Codi by Dr. Suzanne Chapman at 11:08 hrs on 12/18/16. Referring Provider Line: [phone] SITE ID: [id number]
[2016-12-18 11:29] LABS: EOSINOPHILS # (AUTO) 0.2 10^3/uL (0.0-0.7); EOSINOPHILS % (AUTO) 5.3 %; HCT - HEMATOCRIT 39.7 % (42.0-52.0); HGB - HEMOGLOBIN 13.6 g/dL (14.0-18.0); LYMPHOCYTES # (AUTO) 1.4 10^3/uL (1.5-3.5); LYMPHOCYTES % (AUTO) 29.1 %; MEAN CORPUSCULAR HEMOGLOBIN 32.2 pg (27.0-31.0); MEAN CORPUSCULAR HGB CONC 34.1 g/dL (32.0-36.0); MEAN CORPUSCULAR VOLUME 94.4 fL (80.0-94.0); MEAN PLATELET VOLUME 7.5 fL (7.4-11.4); MONOCYTES # (AUTO) 0.5 10^3/uL (0.0-1.0); MONOCYTES % (AUTO) 10.2 %; NEUTROPHILS # (AUTO) 2.5 10^3/uL (1.5-6.6); NEUTROPHILS % (AUTO) 54.4 %; NUCLEATED RED BLOOD CELLS AUTO 0.1 /100WBC; RED BLOOD COUNT 4.21 10^6/uL (4.70-6.10); RED CELL DISTRIBUTION WIDTH 15.5 % (12.0-15.0); UNCORRECTED WHITE BLOOD COUNT 4.7 x10^3/uL; WHITE BLOOD COUNT 4.7 x10^3/uL (4.8-10.8)
[2016-12-18 11:37] LABS: ALBUMIN/GLOBULIN RATIO 1.3 (1.0-2.2); BILIRUBIN,TOTAL 0.7 mg/dL (0.2-1.0); BUN - BLOOD UREA NITROGEN 13 mg/dL (6-20); CALCIUM 9.9 mg/dL (8.5-10.3); CARBON DIOXIDE - CO2 29 mmol/L (21-32); CHLORIDE 102 mmol/L (101-111); GFR - MDRD 78 (>89); GLUCOSE 100 mg/dL (70-100); LIPASE 19 U/L (22-51); POTASSIUM 4.1 mmol/L (3.5-5.0); SODIUM 139 mmol/L (135-145); TOTAL PROTEIN 8.1 g/dL (6.7-8.2)
[2016-12-18] MEDS ORDERED: SODIUM CHLORIDE 0.9% 1,000 ML IV ONE (13:41)
[2016-12-18 14:07] LABS: BILIRUBIN,URINE NEGATIVE (NEGATIVE); UA CHARGE (STRIP ONLY) YES; UR CULTURE IF IND NOT INDICATED
[2016-12-18 14:36] VITALS: BP 112/84
== END 2016-12-18 15:38 | disposition home or self-care (01) ==
LOC: EDUNIT# → ED 10:22
DX: T50.901A Poisoning by unspecified drugs, medicaments and biological substances, accidental (unintentional), initial encounter (principal); Y92.531 Health care provider office as the place of occurrence of the external cause; R40.0 Somnolence; I10 Essential (primary) hypertension; G47.30 Sleep apnea, unspecified; G62.9 Polyneuropathy, unspecified; M19.90 Unspecified osteoarthritis, unspecified site; Z87.891 Personal history of nicotine dependence
CPT/HCPCS: 36415; 70450; 80053; 80306; 80320; 81001; 81003; 83690; 85025; 87086; 96360; 96361; 99284; 99285

== ENCOUNTER 2017-02-23 22:12 | Outpatient (CLI) | payer MEDICAID | END 2017-02-23 22:13 | disposition critical access hospital (66) | LOC: EMS 22:12 | PROVIDERS: ATTEND Surgery | DX: R56.9 Unspecified convulsions (principal) | CPT/HCPCS: A0425; A0427 ==

== ENCOUNTER 2017-02-23 22:29 | Emergency (ER) | payer MEDICAID ==
[2017-02-23] MEDS ORDERED: LORazepam 2 MG/ML SYRINGE ONE (23:53)
[2017-02-24] MEDS ORDERED: LORazepam 2 MG/ML SYRINGE IVP STA ×2 (00:02→04:43)
[2017-02-24 00:23] LABS: BASOPHILS % (AUTO) 0.8 %; EOSINOPHILS % (AUTO) 0.6 %; HCT - HEMATOCRIT 37.5 % (42.0-52.0); HGB - HEMOGLOBIN 12.7 g/dL (14.0-18.0); LYMPHOCYTES # (AUTO) 0.9 10^3/uL (1.5-3.5); LYMPHOCYTES % (AUTO) 15.3 %; MEAN CORPUSCULAR HEMOGLOBIN 32.2 pg (27.0-31.0); MEAN CORPUSCULAR HGB CONC 33.8 g/dL (32.0-36.0); MEAN CORPUSCULAR VOLUME 95.4 fL (80.0-94.0); MEAN PLATELET VOLUME 7.7 fL (7.4-11.4); MONOCYTES # (AUTO) 0.5 10^3/uL (0.0-1.0); MONOCYTES % (AUTO) 8.9 %; NEUTROPHILS # (AUTO) 4.6 10^3/uL (1.5-6.6); NEUTROPHILS % (AUTO) 74.4 %; NUCLEATED RED BLOOD CELLS AUTO 0.1 /100WBC; RED BLOOD COUNT 3.93 10^6/uL (4.70-6.10); RED CELL DISTRIBUTION WIDTH 14.5 % (12.0-15.0); UNCORRECTED WHITE BLOOD COUNT 6.1 x10^3/uL; WHITE BLOOD COUNT 6.1 x10^3/uL (4.8-10.8)
[2017-02-24 00:37] LABS: ALBUMIN/GLOBULIN RATIO 1.6 (1.0-2.2); BILIRUBIN,TOTAL 0.7 mg/dL (0.2-1.0); CALCIUM 9.3 mg/dL (8.5-10.3); CREATININE 0.9 mg/dL (0.6-1.2); POTASSIUM 3.9 mmol/L (3.5-5.0); TOTAL PROTEIN 6.4 g/dL (6.7-8.2)
[2017-02-24 00:44] LABS: CREATINE KINASE MB 2.2 ng/mL (0.6-6.3)
[2017-02-24 00:46] LABS: TROPONIN I < 0.04 ng/mL (<0.49)
--- NOTE | 2017-02-24 02:15 | ED Physician Documentation ---
PD HPI SEIZURE - Stated complaint Stated Complaint: SZ - Chief complaint Chief Complaint: Neuro - History obtained from History obtained from: Patient, EMS - History of Present Illness Timing - onset: Today Witnessed: Witnessed Number of seizures: Single Description of seizure activity: Generalized, Postictal Injury during seizure: None Associated symptoms: Other (ataxia) History of seizures: First seizure Contributing factors: EtOH withdrawal Similar symptoms before: Has not had sx before Recently seen: Other (The patient is preparing to have surgery on 03-02-17 to have a hip replacement surgery.) - Additional information Additional information: 51-year-old male with a history of alcoholism and Guyon Atwood syndrome has decided to stop drinking yesterday and this evening he has had a seizure. He states that he normally drinks about a pint per day and frequently will drink 1/ 5 per day and he does have a history of ataxia. He has been admitted to the hospital previously for ataxia associated with intoxication. He has not had alcohol withdrawal seizure previously to his knowledge. Review of Systems Constitutional: reports: Sweats. denies: Fever, Chills Eyes: denies: Decreased vision Ears: denies: Ear pain Nose: denies: Congestion Throat: denies: Sore throat Cardiac: denies: Chest pain / pressure, Palpitations Respiratory: denies: Dyspnea, Cough GI: reports: Abdominal Pain. denies: Nausea, Vomiting : denies: Dysuria, Frequency Skin: denies: Rash Musculoskeletal: reports: Joint pain. denies: Neck pain, Back pain Neurologic: reports: Other (ataxic gait). denies: Generalized weakness, Focal weakness, Numbness PD PAST MEDICAL HISTORY - Past Medical History Past Medical History: Yes Cardiovascular: Hypertension Respiratory: None, Sleep apnea Neuro: Peripheral neuropathy, Tremors, Other Endocrine/Autoimmune: None GI: GERD, Pancreatitis : Incontinence HEENT: None Psych: Depression, Anxiety Musculoskeletal: Osteoarthritis Derm: None - Past Surgical History Past Surgical History: Yes Ortho: Hip replacement, Arthroscopic surgery HEENT: Tracheostomy - Present Medications Home Medications: Ambulatory Orders Medication Instructions Recorded Confirmed Bupropion HCl [Bupropion HCl Sr] 200 mg PO DAILY 05/23/16 02/23/17 Gabapentin 300 mg PO QPM 05/23/16 02/23/17 Hydroxyzine Pamoate 50 - 150 mg PO QPM 05/23/16 02/23/17 Hydroxyzine Pamoate 50 mg PO 0900,1600 12/16/16 09/18/17 Propranolol [Inderal] 60 mg PO BID 05/23/16 02/23/17 Mirtazapine 7.5 mg PO QPM 08/28/16 02/23/17 Quetiapine Fumarate [Seroquel] 800 mg PO QPM 08/28/16 02/23/17 Folic Acid 1 mg PO DAILY #30 tablet 08/30/16 02/23/17 Multivitamin [Theragran] 1 tab PO DAILYWM #30 tablet 08/30/16 02/23/17 Thiamine [Vitamin B-1] 100 mg PO DAILY #30 tablet 08/30/16 02/23/17 Sucralfate 1 gm PO ACHS #60 tablet 09/11/16 02/23/17 Lorazepam [Ativan] 1 mg PO TID PRN #7 tablet 09/16/16 02/23/17 HYDROcod/ACETAM 5/325 [[place] 5/325] 1 - 2 ea PO Q6H PRN #15 tablet 02/24/17 Lorazepam [Ativan] 1 - 2 mg PO Q6HR PRN #30 tablet 02/24/17 - Allergies Allergies/Adverse Reactions: Allergies Allergy/AdvReac Type Severity Reaction Status Date / Time lisinopril Allergy Mild Edema Verified 02/23/17 22:53 - Social History Does the pt smoke?: No Smoking Status: Former smoker Does the pt drink ETOH?: Yes Does the pt have substance abuse?: Yes - Immunizations Immunizations are current?: Yes Immunizations: Other immun not current - POLST Patient has POLST: No POLST Status: DNR (pt clearly state to me it is DNR, Pt's mother at the bedside did not say no.) PD ED PE NORMAL - Vitals Vital signs reviewed: Yes (hypertensive ) - General General: Well developed/nourished, Other (The patient is shaky on arrival and post ictal. ) - HEENT HEENT: Atraumatic, PERRL, EOMI - Neck Neck: Supple, no meningeal sign, No bony TTP - Cardiac Cardiac: RRR, No murmur - Respiratory Respiratory: No respiratory distress, Clear bilaterally - Abdomen Abdomen: Soft, Non tender - Back Back: No CVA TTP, No spinal TTP - Derm Derm: Normal color, Warm and dry, No rash - Extremities Extremities: No deformity, No edema - Neuro Neuro: No motor deficit, No sensory deficit - Psych Psych: Normal mood, Normal affect Results - Vitals Vitals: Vital Signs - 24 hr 02/24/17 02/24/17 02/24/17 01:07 01:44 04:01 Temperature 36.9 C Heart Rate 78 76 73 Respiratory 16 16 18 Rate Blood Pressure 126/93 H 123/89 H 124/89 H O2 Saturation 95 97 96 02/24/17 02/24/17 02/24/17 05:40 06:56 07:14 Temperature 36.0 C L Heart Rate 67 73 72 Respiratory 19 18 16 Rate Blood Pressure 129/92 H 128/85 H 127/95 H O2 Saturation 95 98 100 Oxygen O2 Source Room air - Labs Labs: Laboratory Tests 02/24/17 02/24/17 02/24/17 00:15 00:15 00:15 WBC 6.1 RBC 3.93 L Hgb 12.7 L Hct 37.5 L MCV 95.4 H MCH 32.2 H MCHC 33.8 RDW 14.5 Plt Count 149 MPV 7.7 Neut # 4.6 Lymph # 0.9 L [place] # 0.5 Eos # 0.0 Baso # 0.0 Absolute Nucleated RBC 0.00 Nucleated RBCs 0.1 Sodium 140 Potassium 3.9 Chloride 101 Carbon Dioxide 22 Anion Gap 17.0 H BUN 17 Creatinine 0.9 Estimated GFR (MDRD) 89 Glucose 100 Calcium 9.3 Total Bilirubin 0.7 AST 41 ALT 27 Alkaline Phosphatase 68 Total Creatine Kinase 88 CK-MB (CK-2) 2.2 Troponin I < 0.04 Total Protein 6.4 L Albumin 3.9 Globulin 2.5 Albumin/Globulin Ratio 1.6 Lipase 39 Urine Color Urine Clarity Urine pH Ur Specific [place] Urine Protein Urine Glucose (UA) Urine Ketones Urine Occult Blood Urine Nitrite Urine Bilirubin Urine Urobilinogen Ur Leukocyte Esterase Ur Microscopic Review Urine Culture Comments Ethyl Alcohol 8.5 02/24/17 03:25 WBC RBC Hgb Hct MCV MCH MCHC RDW Plt Count MPV Neut # Lymph # [place] # Eos # Baso # Absolute Nucleated RBC Nucleated RBCs Sodium Potassium Chloride Carbon Dioxide Anion Gap BUN Creatinine Estimated GFR (MDRD) Glucose Calcium Total Bilirubin AST ALT Alkaline Phosphatase Total Creatine Kinase CK-MB (CK-2) Troponin I Total Protein Albumin Globulin Albumin/Globulin Ratio Lipase Urine Color YELLOW Urine Clarity CLEAR Urine pH 6.0 Ur Specific [place] >=1.030 H Urine Protein NEGATIVE Urine Glucose (UA) NEGATIVE Urine Ketones 15 H Urine Occult Blood NEGATIVE Urine Nitrite NEGATIVE Urine Bilirubin NEGATIVE Urine Urobilinogen 0.2 (NORMAL) Ur Leukocyte Esterase NEGATIVE Ur Microscopic Review NOT INDICATED Urine Culture Comments NOT INDICATED Ethyl Alcohol PD MEDICAL DECISION MAKING - ED course Complexity details: reviewed old records, reviewed results, re-evaluated patient , considered differential, d/w patient ED course: 51-year-old male with a history of Guyon Atwood and alcoholism has had a alcohol withdrawal seizure today. He arrived in the emergency department very shaky and he was postictal. When I went to examine him I startled him and he had a second seizure. The seizure was arrested with the use of 2 mg of Ativan intravenously. The patient was able to wake fully from this eventually and give adequate history. He does have a surgical procedure he is getting ready to have done on his hip in 4 days time. I discussed with him administration of an banana bag and more Ativan and we will provide some Ativan for him to continue as an outpatient for withdrawal symptoms. Departure - Departure Disposition: 01 Home, Self Care Clinical Impression: Alcohol withdrawal Qualifiers: Complication of substance-induced condition: with unspecified complication Qualified Code(s): F10.239 - Alcohol dependence with withdrawal, unspecified Seizure due to alcohol withdrawal Qualifiers: Complication of substance-induced condition: with unspecified complication Qualified Code(s): F10.239 - Alcohol dependence with withdrawal, unspecified Instructions: ED Withdrawal Alcohol, ED Seizure Alcohol Withdrawal Follow-Up: Lisette Freeman ARNP [Primary Care Provider] - Prescriptions: Lorazepam [Ativan] 1 - 2 mg PO Q6HR PRN #30 tablet PRN Reason: withdrawal symptoms HYDROcod/ACETAM 5/325 [[place] 5/325] 1 - 2 ea PO Q6H PRN #15 tablet PRN Reason: Pain
[2017-02-24 03:30] LABS: BILIRUBIN,URINE NEGATIVE (NEGATIVE)
[2017-02-24 03:32] LABS: UA CHARGE (STRIP ONLY) YES; UR CULTURE IF IND NOT INDICATED
[2017-02-24] MEDS ORDERED: THIAMINE INJ 100 MG, FOLIC ACID INJ 1 MG in SODIUM CHLORIDE 0.9% 100ML 100 ML IV STA (04:43)
[2017-02-24] MEDS ORDERED: MAGNESIUM SULFATE 2 GRAM 50 ML IV STA (04:43)
[2017-02-24] MEDS ORDERED: MULTIVITAMIN 10 ML in SODIUM CHLORIDE 0.9% 1,000 ML IV STA (04:43)
[2017-02-24] MEDS ORDERED: LORazepam 2 MG/ML SYRINGE ONE (04:51)
[2017-02-24] MEDS ORDERED: THIAMINE 100 MG/1 ML 2 ML MDV ONE (04:51)
[2017-02-24] MEDS ORDERED: MAGNESIUM SULFATE 2 GRAM 50 ML IV ONE (04:51)
[2017-02-24] MEDS ORDERED: LORazepam 0.5 MG TABLET PO STA (08:04)
[2017-02-24] MEDS ORDERED: LORazepam 0.5 MG TABLET ONE (08:17)
[2017-02-24 08:32] VITALS: BP 146/89
== END 2017-02-24 08:29 | disposition home or self-care (01) ==
LOC: EDUNIT# → ED 22:29
DX: F10.239 Alcohol dependence with withdrawal, unspecified (principal); G40.89 Other seizures; G61.0 Guillain-Barre syndrome; I10 Essential (primary) hypertension; G47.30 Sleep apnea, unspecified; G62.9 Polyneuropathy, unspecified; R25.1 Tremor, unspecified; K21.9 Gastro-esophageal reflux disease without esophagitis; M19.90 Unspecified osteoarthritis, unspecified site; Z87.891 Personal history of nicotine dependence
CPT/HCPCS: 36415; 80053; 80320; 81003; 82550; 82553; 83690; 84484; 85025; 96374; 96375; 96376; 99283; 99285; A9270; J2060; J3411; 81001; 87086

== ENCOUNTER 2017-04-02 17:50 | Observation (INO) | payer MEDICAID ==
--- NOTE | 2017-04-02 18:04 | ED Physician Documentation ---
PD HPI ALTERED MENTAL STATUS - Stated complaint Stated Complaint: ALOC - Chief complaint Chief Complaint: Neuro - History obtained from History obtained from: Patient, EMS - History of Present Illness Timing - onset: Last night Timing - duration: Hours (18) Quality / character: Less responsive, Confused Associated symptoms: Headache, General weakness, Focal weakness (R sided weakness). No: Fever, Stiff neck, Dyspnea, Cough, NVD, Urinary sx Contributing factors: Substance abuse (alcohol). No: Anticoagulated, Diabetic, Cancer, COPD, New medication Basline status: 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, Ambulatory Treatment CAPACITY PLANNING MANAGER: Accucheck (normal per EMS) Recently seen: Surgery (R THR 3 weeks ago) Review of Systems Unable to obtain: AMS PD PAST MEDICAL HISTORY - Past Medical History Past Medical History: Yes Cardiovascular: Hypertension Respiratory: None, Sleep apnea Neuro: Peripheral neuropathy, Tremors, Other Endocrine/Autoimmune: None GI: GERD, Pancreatitis : Incontinence HEENT: None Psych: Depression, Anxiety Musculoskeletal: Osteoarthritis Derm: None - Past Surgical History Past Surgical History: Yes Ortho: Hip replacement, Arthroscopic surgery HEENT: Tracheostomy - Present Medications Home Medications: Ambulatory Orders Medication Instructions Recorded Confirmed Bupropion HCl [Bupropion HCl Sr] 200 mg PO DAILY 05/23/16 04/02/17 Gabapentin 300 mg PO QPM 05/23/16 04/02/17 Propranolol [Inderal] 60 mg PO BID 05/23/16 04/02/17 hydrOXYzine pamoate [Hydroxyzine 50 - 150 mg PO QPM 05/23/16 04/02/17 Pamoate] hydrOXYzine pamoate [Hydroxyzine 50 mg PO 0900,1600 05/23/16 04/02/17 Pamoate] Mirtazapine 7.5 mg PO QPM 08/28/16 04/02/17 Quetiapine Fumarate [Seroquel] 800 mg PO QPM 08/28/16 04/02/17 Folic Acid 1 mg PO DAILY #30 tablet 08/30/16 04/02/17 Multivitamin [Theragran] 1 tab PO DAILYWM #30 tablet 08/30/16 04/02/17 Thiamine [Vitamin B-1] 100 mg PO DAILY #30 tablet 08/30/16 04/02/17 Sucralfate 1 gm PO ACHS #60 tablet 04/06/17 10/26/17 Lorazepam [Ativan] 1 mg PO TID PRN #7 tablet 09/16/16 04/02/17 HYDROcod/ACETAM 5/325 [[place] 5/325] 1 - 2 ea PO Q6H PRN #15 tablet 02/24/17 Lorazepam [Ativan] 1 - 2 mg PO Q6HR PRN #30 tablet 02/24/17 04/02/17 - Allergies Allergies/Adverse Reactions: Allergies Allergy/AdvReac Type Severity Reaction Status Date / Time lisinopril Allergy Mild Edema Verified 02/23/17 22:53 - Social History Does the pt smoke?: No Smoking Status: Never smoker Does the pt drink ETOH?: Yes Does the pt have substance abuse?: Yes - Immunizations Immunizations are current?: Yes Immunizations: Other immun not current - POLST Patient has POLST: No PD ED PE NORMAL - Vitals Vital signs reviewed: Yes - General General: Other (drowsy) - HEENT HEENT: Atraumatic, PERRL (dilated, reactive), Other (dry mouth and lips) - Neck Neck: Supple, no meningeal sign - Cardiac Cardiac: RRR - Respiratory Respiratory: No respiratory distress, Clear bilaterally - Abdomen Abdomen: Soft, Other (mild diffuse TTP) - Back Back: No CVA TTP, No spinal TTP - Derm Derm: Warm and dry - Extremities Extremities: No deformity, No edema - Neuro Neuro: Other (drowsy, arousable.) GCS Score: 14 Results - Vitals Vitals: Vital Signs - 24 hr 04/02/17 04/02/17 17:51 19:32 Temperature 35.8 C L Heart Rate 88 86 Respiratory 18 18 Rate Blood Pressure 109/90 H 125/100 H O2 Saturation 99 98 Oxygen O2 Source Room air - EKG (time done) 1809 Rate: Rate (enter#) (85) Rhythm: NSR [place]: Normal Intervals: Normal ID QRS: Normal Ischemia: Normal ST segments - Labs Labs: Laboratory Tests 04/02/17 04/02/17 04/02/17 18:12 18:12 18:12 WBC 7.6 RBC 3.97 L Hgb 12.2 L Hct 37.0 L MCV 93.2 MCH 30.7 MCHC 32.9 RDW 16.2 H Plt Count 387 MPV 6.6 L Neut # 5.9 Lymph # 1.0 L [place] # 0.5 Eos # 0.1 Baso # 0.0 Absolute Nucleated RBC 0.00 Nucleated RBC % 0.0 Sodium 140 Potassium 4.0 Chloride 104 Carbon Dioxide 22 Anion Gap 14.0 H BUN 14 Creatinine 0.8 Estimated GFR (MDRD) 101 Glucose 110 H Calcium 9.2 Total Bilirubin 0.9 AST 106 H ALT 33 Alkaline Phosphatase 58 Total Creatine Kinase 7805 H* Troponin I < 0.04 Total Protein 7.3 Albumin 3.7 Globulin 3.6 Albumin/Globulin Ratio 1.0 Lipase 17 L Urine Color Urine Clarity Urine pH Ur Specific [place] Urine Protein Urine Glucose (UA) Urine Ketones Urine Occult Blood Urine Nitrite Urine Bilirubin Urine Urobilinogen Ur Leukocyte Esterase Ur Microscopic Review Urine Culture Comments Salicylates < 6.0 Urine Opiates Screen Ur Oxycodone Screen Urine Methadone Screen Ur Propoxyphene Screen Acetaminophen < 10 L Ur Barbiturates Screen Ur Tricyclics Screen Ur Phencyclidine Scrn Ur Amphetamine Screen U Methamphetamines Scrn U Benzodiazepines Scrn Urine Cocaine Screen U Cannabinoids Screen Ethyl Alcohol < 5.0 04/02/17 19:15 WBC RBC Hgb Hct MCV MCH MCHC RDW Plt Count MPV Neut # Lymph # [place] # Eos # Baso # Absolute Nucleated RBC Nucleated RBC % Sodium Potassium Chloride Carbon Dioxide Anion Gap BUN Creatinine Estimated GFR (MDRD) Glucose Calcium Total Bilirubin AST ALT Alkaline Phosphatase Total Creatine Kinase Troponin I Total Protein Albumin Globulin Albumin/Globulin Ratio Lipase Urine Color YELLOW Urine Clarity CLEAR Urine pH 6.0 Ur Specific [place] 1.025 Urine Protein NEGATIVE Urine Glucose (UA) NEGATIVE Urine Ketones 15 H Urine Occult Blood NEGATIVE Urine Nitrite NEGATIVE Urine Bilirubin NEGATIVE Urine Urobilinogen 0.2 (NORMAL) Ur Leukocyte Esterase NEGATIVE Ur Microscopic Review NOT INDICATED Urine Culture Comments NOT INDICATED Salicylates Urine Opiates Screen NEGATIVE Ur Oxycodone Screen POSITIVE H Urine Methadone Screen NEGATIVE Ur Propoxyphene Screen NEGATIVE Acetaminophen Ur Barbiturates Screen NEGATIVE Ur Tricyclics Screen POSITIVE H Ur Phencyclidine Scrn NEGATIVE Ur Amphetamine Screen NEGATIVE U Methamphetamines Scrn NEGATIVE U Benzodiazepines Scrn POSITIVE H Urine Cocaine Screen NEGATIVE U Cannabinoids Screen NEGATIVE Ethyl Alcohol - Rads (name of study) head CT Radiology: Prelim report reviewed, EMP read contemporaneously, See rad report ( Negative nonenhanced head CT. ) C-spine CT Radiology: Prelim report reviewed, EMP read contemporaneously, See rad report ( no acute abnormalities) CT chest Radiology: Prelim report reviewed, EMP read contemporaneously, See rad report ( No acute thoracic trauma. ) CT abd/pelvis Radiology: Prelim report reviewed, EMP read contemporaneously, See rad report ( No evidence of acute solid or hollow abdominal viscera trauma. 2. There is a 3.3 x 2.0 cm soft tissue fluid collection lateral to the right greater trochanter which most likely represent a postoperative seroma. Correlate clinically to exclude infection. ) PD MEDICAL DECISION MAKING - ED course Complexity details: reviewed old records, reviewed results, re-evaluated patient , considered differential, d/w patient, d/w dairy consultant ED course: Patient is a 52-year-old gentleman who presents to the emergency department with altered mental status. Apparently has been lying on the ground since midnight. He is found to be in rhabdomyolysis. Found to have acute near urinary retention and a catheter was placed. Approximately 2 L of urine drained. Given IV fluids and mental status improved. He is still profoundly altered and not making sense when he talks, still does not have good use of the right hand, though was not as weak. No acute findings on head CT. Will admit the patient for further evaluation and care, would likely benefit from an MRI. Will also need reevaluation of his acute urinary retention. Discussed the case with Dr. Butterfield, hospitalist who accepts This document was made in part using voice recognition software. While efforts are made to proofread this document, sound alike and grammatical errors may occur. Departure - Departure Disposition: ED Place in Observation Clinical Impression: Acute urinary retention, Right hand weakness, Dehydration Altered mental status Qualifiers: Altered mental status type: unspecified Qualified Code(s): R41.82 - Altered mental status, unspecified Rhabdomyolysis Qualifiers: Rhabdomyolysis type: non-traumatic Qualified Code(s): M62.82 - Rhabdomyolysis Condition: Stable Discharge Date/Time: 04/02/17 23:01
[2017-04-02 18:23] LABS: BASOPHILS % (AUTO) 0.6 %; EOSINOPHILS # (AUTO) 0.1 10^3/uL (0.0-0.7); EOSINOPHILS % (AUTO) 0.7 %; HGB - HEMOGLOBIN 12.2 g/dL (14.0-18.0); LYMPHOCYTES % (AUTO) 13.6 %; MEAN CORPUSCULAR HEMOGLOBIN 30.7 pg (27.0-31.0); MEAN CORPUSCULAR HGB CONC 32.9 g/dL (32.0-36.0); MEAN CORPUSCULAR VOLUME 93.2 fL (80.0-94.0); MEAN PLATELET VOLUME 6.6 fL (7.4-11.4); MONOCYTES # (AUTO) 0.5 10^3/uL (0.0-1.0); MONOCYTES % (AUTO) 6.6 %; NEUTROPHILS # (AUTO) 5.9 10^3/uL (1.5-6.6); NEUTROPHILS % (AUTO) 78.5 %; RED BLOOD COUNT 3.97 10^6/uL (4.70-6.10); RED CELL DISTRIBUTION WIDTH 16.2 % (12.0-15.0); UNCORRECTED WHITE BLOOD COUNT 7.6 x10^3/uL; WHITE BLOOD COUNT 7.6 x10^3/uL (4.8-10.8)
[2017-04-02] MEDS ORDERED: IOPAMIDOL-300 100 ML VIAL ONE ×2 (18:33→22:33)
[2017-04-02 18:41] LABS: BILIRUBIN,TOTAL 0.9 mg/dL (0.2-1.0); BUN - BLOOD UREA NITROGEN 14 mg/dL (6-20); CALCIUM 9.2 mg/dL (8.5-10.3); CARBON DIOXIDE - CO2 22 mmol/L (21-32); CHLORIDE 104 mmol/L (101-111); CREATININE 0.8 mg/dL (0.6-1.2); GFR - MDRD 101 (>89); GLUCOSE 110 mg/dL (70-100); LIPASE 17 U/L (22-51); SALICYLATE < 6.0 mg/dL; SODIUM 140 mmol/L (135-145); TOTAL PROTEIN 7.3 g/dL (6.7-8.2)
[2017-04-02] MEDS ORDERED: SODIUM CHLORIDE 0.9% 1,000 ML IV ONE ×2 (18:50)
[2017-04-02] MEDS: IOPAMIDOL-300 100 ML VIAL IVP ONE (19:03)
[2017-04-02 19:16] LABS: ACETAMINOPHEN < 10 ug/mL (10-30)
[2017-04-02 19:21] LABS: BILIRUBIN,URINE NEGATIVE (NEGATIVE)
[2017-04-02 19:22] LABS: UA CHARGE (STRIP ONLY) YES; UR CULTURE IF IND NOT INDICATED
--- NOTE | 2017-04-02 19:24 | CT Preliminary Report ---
Exam: CT HEAD W/O IMPRESSION: Negative nonenhanced head CT. [facility] SITE ID: [id number]
--- NOTE | 2017-04-02 19:27 | CT Report ---
EXAM: CT HEAD EXAM DATE: 04/02/2017 06:23 PM. CLINICAL HISTORY: ALOC after fall. COMPARISON: 12/18/2016. TECHNIQUE: Multiaxial CT images were obtained from the foramen magnum to the vertex. IV contrast: Non e. Reformats: Coronal. In accordance with CT protocol optimization, one or more of the following dose reduction techniques w ere utilized for this exam: automated exposure control, adjustment of mA and/or KV based on patient s ize, or use of iterative reconstructive technique. FINDINGS: Parenchyma: No intraparenchymal hemorrhage. No evidence of mass, midline shift, or CT findings of inf arction. Muhammad-white differentiation is distinct. Extraaxial Spaces: Normal for age. No subdural or epidural collections identified. Ventricles: Normal in size and position. Sinuses and orbits: Imaged paranasal sinuses, orbits, and mastoids show no significant abnormality. Bones: No evidence of fracture or calvarial defect. Other: None. IMPRESSION: Negative nonenhanced head CT. [facility] Referring Provider Line: [phone] SITE ID: [id number]
--- NOTE | 2017-04-02 19:31 | CT Preliminary Report ---
Exam: CT CERVICAL SPINE W/O IMPRESSION: 1. Negative for acute fracture and subluxation of cervical spine. 2. Multilevel chronic degenerative disease. [facility] SITE ID: [id number]
--- NOTE | 2017-04-02 19:33 | CT Report ---
EXAM: CT CERVICAL SPINE WITHOUT CONTRAST DATE: 04/02/2017 07:09 PM HISTORY: ALOC after fall. COMPARISONS: None. TECHNIQUE: Thin-section axial images were acquired of the cervical spine without contrast. Post-proce ssing: Coronal and sagittal reformats. Other: None. In accordance with CT protocol optimization, one or more of the following dose reduction techniques w ere utilized for this exam: automated exposure control, adjustment of mA and/or KV based on patient s ize, or use of iterative reconstructive technique. FINDINGS: Alignment: There is no subluxation. Bones: Negative for fracture. No lytic or blastic bone lesion. There is multilevel degenerative disea se. Interspace Levels/Facets: There is moderate to marked disk height loss at C2-C3 and C3-C4. There is moderate disk height loss f rom C4-T1. There is mild bilateral facet degenerative disease. No significant bony central spinal can al stenosis. There are subchondral cysts scattered throughout the cervical spine consistent with a de generative process. Musculature: Normal. No fatty atrophy. Other: The paravertebral and prevertebral soft tissues are normal. The lung apices are clear. IMPRESSION: 1. Negative for acute fracture and subluxation of cervical spine. 2. Multilevel chronic degenerative disease. [facility] Referring Provider Line: [phone] SITE ID: [id number]
--- NOTE | 2017-04-02 19:36 | CT Preliminary Report ---
Exam: CT CHEST W/ IMPRESSION: No acute thoracic trauma. [facility] SITE ID: [id number]
--- NOTE | 2017-04-02 19:38 | CT Report ---
EXAM: CT CHEST EXAM DATE: 04/02/2017 06:39 PM. CLINICAL HISTORY: Chest pain s/p fall. COMPARISONS: None. TECHNIQUE: Routine helical CT imaging was performed through the chest. IV contrast: 100 mL Isovue-300 . Reconstructions: Coronal and sagittal. In accordance with CT protocol optimization, one or more of the following dose reduction techniques w ere utilized for this exam: automated exposure control, adjustment of mA and/or KV based on patient s ize, or use of iterative reconstructive technique. FINDINGS: Lungs/Pleura: No nodules, bronchial thickening, consolidation, or edema. Pulmonary vasculature is nor mal. No pericardial or pleural effusion. No pneumothorax. Mediastinum: Normal. No adenopathy or masses. The heart and great vessels are normal. Bones: Old posterior left sixth through 10th rib fracture deformities. No acute fracture seen. Visualized Abdomen: Unremarkable. Other: None. IMPRESSION: No acute thoracic trauma. [facility] Referring Provider Line: [phone] SITE ID: [id number]
--- NOTE | 2017-04-02 19:45 | CT Report ---
EXAM: CT ABDOMEN AND PELVIS EXAM DATE: 04/02/2017 07:10 PM. CLINICAL HISTORY: Abd pain s/p fall. COMPARISONS: 08/18/2013 CT. TECHNIQUE: Routine helical CT imaging was performed through the abdomen and pelvis. IV contrast: Isov ue 300 100mL. Enteric contrast: No. Reconstructions: Coronal and sagittal. In accordance with CT protocol optimization, one or more of the following dose reduction techniques w ere utilized for this exam: automated exposure control, adjustment of mA and/or KV based on patient s ize, or use of iterative reconstructive technique. FINDINGS: Lung Bases: Unremarkable. Liver: Normal. No masses. Gallbladder/Bile Ducts: Unremarkable. Spleen: Normal. Pancreas: Normal. Adrenal Glands: Normal. Kidneys: Normal. No masses or hydronephrosis. Peritoneal Cavity/Bowel: Diverticulosis, no diverticulitis. There is no blood average volume of stool throughout the colon. No small bowel obstruction. No free air or fluid collections. The appendix is well visualized and normal. Pelvic Organs: The urinary bladder is distended. No free fluid within the pelvis. Vasculature: No aneurysms or other significant abnormality. Bones: Extensive artifact from recent right hip arthroplasty. There is a 3.3 x 2.0 cm fluid collectio n lateral to the greater trochanter. No acute fractures seen. Other: None. IMPRESSION: 1. No evidence of acute solid or hollow abdominal viscera trauma. 2. There is a 3.3 x 2.0 cm soft tissue fluid collection lateral to the right greater trochanter which most likely represent a postoperative seroma. Correlate clinically to exclude infection. [facility] Referring Provider Line: [phone] SITE ID: [id number]
[2017-04-02] MEDS ORDERED: PROCHLORPERAZINE 10 MG/2 ML VIAL IVP PRN (20:39)
[2017-04-02] MEDS ORDERED: ONDANSETRON 4 MG/2 ML VIAL IVP PRN (20:39)
[2017-04-02] MEDS ORDERED: ACETAMINOPHEN 325 MG TABLET PO PRN (20:39)
[2017-04-02] MEDS ORDERED: MAGNESIUM SULFATE 2 GRAM 2 GM/50 ML BAG IV ONE ×2 (20:39→22:30)
[2017-04-02] MEDS ORDERED: PROMETHAZINE 25 MG/1 ML VIAL IM PRN (20:39)
[2017-04-02] MEDS ORDERED: HYDROcod/ACETAM 5/325 MG TABLET PO PRN (20:39)
[2017-04-02] MEDS ORDERED: SODIUM CHLORIDE FLUSH 0.9% 10 ML SYRINGE IVP PRN (20:39)
[2017-04-02] MEDS ORDERED: LORazepam 2 MG/ML SYRINGE IVP PRN (20:39)
[2017-04-02] MEDS ORDERED: QUETIAPINE FUMARATE 800 MG PO SCH (21:00)
[2017-04-02] MEDS: SODIUM CHLORIDE 0.9% 1,000 ML IV SCH (22:30)
[2017-04-02] MEDS: SODIUM CHLORIDE FLUSH 0.9% 10 ML SYRINGE IVP SCH (23:42)
[2017-04-02] MEDS: PROPRANOLOL 40 MG TABLET PO SCH (23:59)
[2017-04-03] MEDS: HYDROcod/ACETAM 10 MG/325 MG TABLET PO PRN ×4 (00:07→23:37)
[2017-04-03] MEDS: QUEtiapine 100 MG TABLET PO SCH ×2 (00:17→20:13)
--- NOTE | 2017-04-03 02:15 | HISTORY & PHYSICAL EXAMINATION ---
Chief Complaint - Chief Complaint Chief Complaint: Altered mental status History of Present Illness - Admitted From Admitted From:: Emergency department - History Obtained From Records Reviewed: Yes History obtained from: Patient's mom, emergency department and past records Exam Limitations: Patient unable to provide history secondary to altered mental status - History of Present Illness HPI Comment/Other: Patient is a 52-year-old gentleman with a past medical history significant for alcohol abuse, substance abuse, history of Guillain Manter syndrome diagnosed in 2010, hypertension, idiopathic neuropathy, chronic right hip arthralgia, chronic pain, depression with anxiety who presented to the emergency department with a chief complaint of altered mental status. The patient was not able to provide a reliable history therefore the history was provided by the patient's mother, emergency room records and past medical records. According to the patient's mother the patient was drinking throughout the day yesterday and last night passed out on the floor. The patient's mom found him passed out on the floor this morning and just let him lay there as this is something he commonly does. She states that later in the evening when she returned to the room the patient was still passed out on the floor and was not moving. She states that she tried to wake him up and when she was able to get him to open his eyes the patient was slurring his words and did not seem to be appropriate. The patient' s mother decided to bring the patient into the emergency department at that point. According to the patient's mom the patient did have a right total hip replacement 3 weeks ago and he had been complaining of a sore throat. Otherwise patient did not seem different in any other way. She states that he is continued to drink daily. The patient was unable to provide a reliable review of systems. On presentation to the emergency department the patient was afebrile and vital signs were within normal limits. The patient seemed to be breathing normally but again was very difficult to arouse. When aroused the patient was slurring his words and not making sense. The patient was evaluated by the emergency room physician and appeared to have a mild right facial droop and right-sided weakness which was new for him. The patient's lab work revealed a CK of 7805 with a normal creatinine and labs otherwise were within normal limits. The patient's UA was negative, his blood alcohol level was negative and his U tox was positive for oxycodone, tricyclics and benzodiazepines. Given the patient' s rhabdomyolysis and altered mental status with right-sided weakness the patient was placed in observation for further workup and treatment of rhabdo. History - Past Medical History Cardiovascular: reports: Hypertension Respiratory: reports: Sleep apnea Neuro: reports: Peripheral neuropathy, Tremors, Other Endocrine/Autoimmune: reports: None GI: reports: GERD, Pancreatitis : reports: Incontinence HEENT: reports: None Psych: reports: Depression, Anxiety Musculoskeletal: reports: Osteoarthritis Derm: reports: None MRSA Hx?: No Other Past Medical History: DN Manter, alcohol abuse, idiopathic neuropathy, chronic pain - Past Surgical History Ortho: reports: Hip replacement, Arthroscopic surgery HEENT: reports: Tracheostomy - Family & Social History Family History: Mother: [place], Father: , CAD, [place], Brother: Alive and Well Living arrangement: At home Living Situation: With family Social History Notes: The patient lives at home with his mother. The patient smoked for 4 years and quit in 2005. He smoked a pack a day. The patient is an alcoholic and drinks daily. According to him he drinks 1-2 drinks of Esequiel Jiménez or vodka in a couple of glasses of wine a night. But it is apparent that he drinks much more than that. The patient is his in 2008 due to pancreatitis. The patient has had a an issue with alcohol abuse since his teen years. The patient does use marijuana on occasion. He has no history of methamphetamine, heroin, cocaine, LSD abuse. - POLST Patient has POLST: No POLST Status: DNR (pt clearly state to me it is DNR, Pt's mother at the bedside did not say no.) Meds/Allgy - Home Medications Home Medications: Ambulatory Orders Medication Instructions Recorded Confirmed Bupropion HCl [Bupropion HCl Sr] 200 mg PO DAILY 05/23/16 04/02/17 Gabapentin 300 mg PO QPM 05/23/16 04/02/17 Propranolol [Inderal] 60 mg PO BID 05/23/16 04/02/17 hydrOXYzine pamoate [Hydroxyzine 50 - 150 mg PO QPM 05/23/16 04/02/17 Pamoate] hydrOXYzine pamoate [Hydroxyzine 50 mg PO 0900,1600 05/23/16 04/02/17 Pamoate] Mirtazapine 7.5 mg PO QPM 08/28/16 04/02/17 Quetiapine Fumarate [Seroquel] 800 mg PO QPM 08/28/16 04/02/17 Folic Acid 1 mg PO DAILY #30 tablet 08/30/16 04/02/17 Multivitamin [Theragran] 1 tab PO DAILYWM #30 tablet 08/30/16 04/02/17 Thiamine [Vitamin B-1] 100 mg PO DAILY #30 tablet 08/30/16 04/02/17 Sucralfate 1 gm PO ACHS #60 tablet 09/11/16 04/02/17 Lorazepam [Ativan] 1 mg PO TID PRN #7 tablet 09/16/16 04/02/17 HYDROcod/ACETAM 5/325 [[place] 5/325] 1 - 2 ea PO Q6H PRN #15 tablet 02/24/17 Lorazepam [Ativan] 1 - 2 mg PO Q6HR PRN #30 tablet 02/24/17 04/02/17 - Allergies Allergies/Adverse Reactions: Allergies Allergy/AdvReac Type Severity Reaction Status Date / Time lisinopril Allergy Mild Edema Verified 02/23/17 22:53 Review of Systems - Other Findings Other Findings: Patient unable to provide a comprehensive review of systems secondary to altered mental status. Exam - Vital Signs Reviewed Vital Signs: Yes Vital Signs: Vital Signs x48h Temp Pulse Pulse Resp BP BP Pulse Ox 04/02/17 23:12 36.5 C 96 18 138/88 H 97 04/02/17 21:12 92 16 121/87 H 100 - Physical Exam General Appearance: positive: Lethargic, Other (Confused, confabulating) Eyes Bilateral: positive: Normal inspection, PERRL, EOMI, No lid inflammation, Conjunctivae nml, No scleral icterus ENT: positive: ENT inspection nml, Pharynx nml, Dry mucous membranes. negative : Purulent nasal drainage, Pharyngeal erythema, Oral lesions Neck: positive: Nml inspection, Thyroid nml, No JVD, Trachea midline. negative : Thyromegaly, Lymphadenopathy (R), Lymphadenopathy (L), Stiff neck, Carotid bruit, Tracheal deviation Respiratory: positive: Chest non-tender, No respiratory distress, Breath sounds nml. negative: Wheezes, Rales, Rhonchi Cardiovascular: positive: Regular rate & rhythm, No murmur, No gallop Peripheral Pulses: positive: 2+ Abdomen: positive: Non-tender, No organomegaly, Nml bowel sounds, No distention. negative: Guarding, Rebound, Bruit Back: positive: Nml inspection. negative: CVA tenderness (R), CVA tenderness (L ) Skin: positive: Color nml, No rash, Warm. 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 The patient developed rhabdomyolysis with a CK of over 7000. Patient does not have any renal failure. Plan: Give patient IV fluids Monitor CK Monitor renal function Qualifiers: Rhabdomyolysis type: non-traumatic Qualified Code(s): M62.82 - Rhabdomyolysis (2) Right sided weakness Conclusion/Plan: The patient appears to have new right-sided weakness. 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 Given that the patient was down for an extended period of time more than what he is typically down for after binge drinking this is concerning for possibility of a stroke. The patient did get a CT of his head in the emergency department which did not show any acute stroke. Plan: Patient will get an MRI and CT angios his head and neck while he is hospitalized We will get neuro checks every 4 hours Patient will be placed on aspirin and Lipitor while he is hospitalized We will assess patient for need for PT and OT. (3) Altered mental status Conclusion/Plan: The patient is having altered mental status. Initially the patient was lethargic difficult to arouse he is much more arousable now but he is confabulating and very confused. This is not at the patient's normal baseline. Patient's altered mental status may be secondary to stroke or from concussion from falling to the floor although he does not have any significant findings of trauma on his scalp. The patient may also be going through alcohol withdrawal as he is having some visual hallucinations. Plan: Neurochecks MRI and CT angiogram of head and neck Alcohol withdrawal protocol Monitor closely Qualifiers: Altered mental status type: unspecified Qualified Code(s): R41.82 - Altered mental status, unspecified (4) Alcohol abuse Conclusion/Plan: Patient has history of alcohol abuse and drinks daily. According to his mom he continues to drink daily. Patient's alcohol level is negative on presentation his last drink was last night. Patient is having altered mental status and having some visual hallucinations is concerning for possibility of alcohol withdrawal. Patient's vital signs however are normal and he is not having any tremors at this time. Plan: Patient will be placed on alcohol withdrawal protocol with Ativan as needed Patient will get multivitamin, thiamine, folic acid and magnesium IV. Patient will be counseled on need to quit drinking once he is more alert. Consult social work (5) Acute urinary retention Conclusion/Plan: On presentation to the emergency department the patient did have significant urinary retention and a Paez catheter was placed in the emergency room. Patient probably has urinary retention secondary to being passed out and not having been alert enough to have urinated. Plan: We will continue to give the patient IV fluids and will remove the Paez catheter once he is more alert and awake and then do a postvoid residual. (7) Peripheral neuropathy Conclusion/Plan: The patient has history of peripheral neuropathy and is on gabapentin at home. Patient will be continued on his home dose of gabapentin Patient does have sensory deficits in bilateral lower extremities. (8) Prophylactic use of low molecular weight heparin for venous thromboembolism Conclusion/Plan: Patient will be placed on Lovenox for DVT prophylaxis while he is hospitalized. - Lab Results Lab results reviewed: Yes Fish Bones: 04/02/17 18:12 04/02/17 18:12 - Diagnostic Imaging Results Diagnostic Imaging Results: positive: Final report reviewed Diagnostic Imaging Results Comments: Laboratory Results WBC 7.6 x10^3/uL (4.8-10.8) 04/02/17 18:12 RBC 3.97 10^6/uL (4.70-6.10) L 04/02/17 18:12 Hgb 12.2 g/dL (14.0-18.0) L 04/02/17 18:12 Hct 37.0 % (42.0-52.0) L 04/02/17 18:12 MCV 93.2 fL (80.0-94.0) 04/02/17 18:12 MCH 30.7 pg (27.0-31.0) 04/02/17 18:12 MCHC 32.9 g/dL (32.0-36.0) 04/02/17 18:12 RDW 16.2 % (12.0-15.0) H 04/02/17 18:12 Plt Count 387 10^3/uL (130-450) 04/02/17 18:12 MPV 6.6 fL (7.4-11.4) L 04/02/17 18:12 Neut # 5.9 10^3/uL (1.5-6.6) 04/02/17 18:12 Lymph # 1.0 10^3/uL (1.5-3.5) L 04/02/17 18:12 Bent # 0.5 10^3/uL (0.0-1.0) 04/02/17 18:12 Eos # 0.1 10^3/uL (0.0-0.7) 04/02/17 18:12 Baso # 0.0 10^3/uL (0.0-0.1) 04/02/17 18:12 Absolute Nucleated RBC 0.00 x10^3/uL 04/02/17 18:12 Nucleated RBC % 0.0 /100WBC 04/02/17 18:12 Sodium 140 mmol/L (135-145) 04/02/17 18:12 Potassium 4.0 mmol/L (3.5-5.0) 04/02/17 18:12 Chloride 104 mmol/L (101-111) 04/02/17 18:12 Carbon Dioxide 22 mmol/L (21-32) 04/02/17 18:12 Anion Gap 14.0 (6-13) H 04/02/17 18:12 BUN 14 mg/dL (6-20) 04/02/17 18:12 Creatinine 0.8 mg/dL (0.6-1.2) 04/02/17 18:12 Estimated GFR (MDRD) 101 (>89) 04/02/17 18:12 Glucose 110 mg/dL (70-100) H 04/02/17 18:12 Calcium 9.2 mg/dL (8.5-10.3) 04/02/17 18:12 Total Bilirubin 0.9 mg/dL (0.2-1.0) 04/02/17 18:12 AST 106 IU/L (10-42) H 04/02/17 18:12 ALT 33 IU/L (10-60) 04/02/17 18:12 Alkaline Phosphatase 58 IU/L (42-121) 04/02/17 18:12 Total Creatine Kinase 4719 IU/L (22-269) H* 04/02/17 23:04 Troponin I < 0.04 ng/mL (<0.49) 04/02/17 18:12 Total Protein 7.3 g/dL (6.7-8.2) 04/02/17 18:12 Albumin 3.7 g/dL (3.2-5.5) 04/02/17 18:12 Globulin 3.6 g/dL (2.1-4.2) 04/02/17 18:12 Albumin/Globulin Ratio 1.0 (1.0-2.2) 04/02/17 18:12 Lipase 17 U/L (22-51) L 04/02/17 18:12 Urine Color YELLOW 04/02/17 19:15 Urine Clarity CLEAR (CLEAR) 04/02/17 19:15 Urine pH 6.0 PH (5.0-7.5) 04/02/17 19:15 Ur Specific [place] 1.025 (1.002-1.030) 04/02/17 19:15 Urine Protein NEGATIVE mg/dL (NEGATIVE) 04/02/17 19:15 Urine Glucose (UA) NEGATIVE mg/dL (NEGATIVE) 04/02/17 19:15 Urine Ketones 15 mg/dL (NEGATIVE) H 04/02/17 19:15 Urine Occult Blood NEGATIVE (NEGATIVE) 04/02/17 19:15 Urine Nitrite NEGATIVE (NEGATIVE) 04/02/17 19:15 Urine Bilirubin NEGATIVE (NEGATIVE) 04/02/17 19:15 Urine Urobilinogen 0.2 (NORMAL) E.U./dL (NORMAL) 04/02/17 19:15 Ur Leukocyte Esterase NEGATIVE (NEGATIVE) 04/02/17 19:15 Ur Microscopic Review NOT INDICATED 04/02/17 19:15 Urine Culture Comments NOT INDICATED 04/02/17 19:15 Salicylates < 6.0 mg/dL 04/02/17 18:12 Urine Opiates Screen NEGATIVE (NEGATIVE) 04/02/17 19:15 Ur Oxycodone Screen POSITIVE (NEGATIVE) H 04/02/17 19:15 Urine Methadone Screen NEGATIVE (NEGATIVE) 04/02/17 19:15 Ur Propoxyphene Screen NEGATIVE (NEGATIVE) 04/02/17 19:15 Acetaminophen < 10 ug/mL (10-30) L 04/02/17 18:12 Ur Barbiturates Screen NEGATIVE (NEGATIVE) 04/02/17 19:15 Ur Tricyclics Screen POSITIVE (NEGATIVE) H 04/02/17 19:15 Ur Phencyclidine Scrn NEGATIVE (NEGATIVE) 04/02/17 19:15 Ur Amphetamine Screen NEGATIVE (NEGATIVE) 04/02/17 19:15 U Methamphetamines Scrn NEGATIVE (NEGATIVE) 04/02/17 19:15 U Benzodiazepines Scrn POSITIVE (NEGATIVE) H 04/02/17 19:15 Urine Cocaine Screen NEGATIVE (NEGATIVE) 04/02/17 19:15 U Cannabinoids Screen NEGATIVE (NEGATIVE) 04/02/17 19:15 Ethyl Alcohol < 5.0 mg/dL 04/02/17 18:12 CT cervical spine Impression: 1. Negative for acute fracture and subluxation of the cervical spine 2. Multilevel chronic degenerative disease CT head Impression: Negative nonenhanced CT head CT abdomen pelvis Impression: 1. No evidence of acute solid or hollow abdominal viscera trauma 2. There is a 3.3 x 2.0 cm soft tissue fluid collection lateral to the right greater trochanter which most likely represents a post operative seroma. Correlate clinically to exclude infection Next CT chest Impression: No acute thoracic trauma. Issues/Core Measures - Anticipated LOS Anticipated Stay Length: Less than 2 midnights - DVT/VTE - Prophylaxis VTE/DVT Prophylaxis med ordered at admit?: Yes
[2017-04-03] MEDS: SODIUM CHLORIDE 0.9% 1,000 ML IV SCH ×4 (02:43→23:35)
[2017-04-03] MEDS: SODIUM CHLORIDE FLUSH 0.9% 10 ML SYRINGE IVP SCH ×3 (05:36→19:35)
[2017-04-03 06:27] LABS: BASOPHILS % (AUTO) 0.5 %; EOSINOPHILS # (AUTO) 0.2 10^3/uL (0.0-0.7); EOSINOPHILS % (AUTO) 2.5 %; HCT - HEMATOCRIT 31.8 % (42.0-52.0); HGB - HEMOGLOBIN 10.7 g/dL (14.0-18.0); LYMPHOCYTES # (AUTO) 1.4 10^3/uL (1.5-3.5); LYMPHOCYTES % (AUTO) 20.8 %; MEAN CORPUSCULAR HGB CONC 33.5 g/dL (32.0-36.0); MEAN CORPUSCULAR VOLUME 92.6 fL (80.0-94.0); MEAN PLATELET VOLUME 6.6 fL (7.4-11.4); MONOCYTES # (AUTO) 0.5 10^3/uL (0.0-1.0); MONOCYTES % (AUTO) 7.7 %; NEUTROPHILS # (AUTO) 4.7 10^3/uL (1.5-6.6); NEUTROPHILS % (AUTO) 68.5 %; RED BLOOD COUNT 3.43 10^6/uL (4.70-6.10); RED CELL DISTRIBUTION WIDTH 16.7 % (12.0-15.0); UNCORRECTED WHITE BLOOD COUNT 6.9 x10^3/uL; WHITE BLOOD COUNT 6.9 x10^3/uL (4.8-10.8)
[2017-04-03 06:34] LABS: INR 1.1 (0.8-1.2); PT - PROTHROMBIN TIME 12.7 secs (9.9-12.6)
[2017-04-03 06:58] LABS: ALBUMIN/GLOBULIN RATIO 1.1 (1.0-2.2); BILIRUBIN,TOTAL 0.7 mg/dL (0.2-1.0); CALCIUM 8.4 mg/dL (8.5-10.3); CREATININE 0.7 mg/dL (0.6-1.2); MAGNESIUM 1.5 mg/dL (1.7-2.8); PHOSPHORUS 3.4 mg/dL (2.5-4.6); POTASSIUM 3.7 mmol/L (3.5-5.0); TOTAL PROTEIN 5.7 g/dL (6.7-8.2)
[2017-04-03] MEDS ORDERED: IOPAMIDOL-300 100 ML VIAL ONE (07:54)
--- NOTE | 2017-04-03 08:20 | PROVIDER PROGRESS NOTE ---
Subjective - Prog Note Date Prog Note Date: 04/03/17 Prog Note Time: 08:20 - Subjective Pt reports feeling: No change Current Medications - Current Medications Current Medications: Active Medications Generic Name Dose Route Start Last Admin Trade Name Freq PRN Reason Stop Dose Admin Acetaminophen 650 mg 04/02/17 20:39 Tylenol PO Q4HR PRN Pain 1 to 4 Acetaminophen/Hydrocodone [place] 1 tab 04/02/17 20:39 [place] 5/325 PO Q4HR PRN Pain 5 to 7 Acetaminophen/Hydrocodone [place] 1 tab 04/02/17 20:39 04/03/17 19:41 [place] 10 Mg/325 Mg PO 1 tab Q4HR PRN Administration Pain 8 to 10 Aspirin 325 mg 04/03/17 08:00 04/03/17 08:58 Brice PO 325 mg DAILYWM ROSIE Administration Atorvastatin Calcium 80 mg 04/02/17 21:00 04/03/17 20:13 Lipitor PO 80 mg QPM ROSIE Administration Bupropion HCl 200 mg 04/03/17 09:00 04/03/17 08:58 Wellbutrin Sr PO 200 mg DAILY ROSIE Administration Enoxaparin Sodium 40 mg 04/03/17 09:00 04/03/17 08:58 Lovenox SUBQ 40 mg DAILY ROSIE Administration Famotidine 20 mg 04/03/17 09:00 04/03/17 08:58 Pepcid PO 20 mg DAILY ROSIE Administration Thiamine HCl 100 mg/ Folic 101.2 mls @ 50.6 mls/hr 04/03/17 09:00 04/03/17 12 :27 Acid 1 mg/ Sodium Chloride IV Infused DAILY ROSIE Infusion Multivitamins 10 ml/ Sodium 1,010 mls @ 100 mls/hr 04/03/17 09:00 04/03/17 18 :59 Chloride IV Infused DAILY ROSIE Infusion Sodium Chloride 1,000 mls @ 250 mls/hr 04/02/17 21:00 04/03/17 19:31 Normal Saline 0.9% IV 250 mls/hr .Q4H ROSIE Administration Lorazepam 1 mg 04/02/17 20:39 04/03/17 02:46 Ativan Inj IVP 1 mg Q30M PRN Administration CIWA > 8 Protocol Lorazepam 1 mg 04/03/17 18:27 Ativan PO Q3H PRN Anxiety Ondansetron HCl 4 mg 04/02/17 20:39 Zofran Inj IVP Q6HR PRN Nausea / Vomiting Oxycodone/Acetaminophen 1 tab 04/03/17 18:28 Percocet 5 Mg/325 Mg PO Q6H PRN PAIN Polyethylene Glycol 17 gm 04/03/17 09:00 04/03/17 11:04 Miralax PO Not Given DAILY ROSIE Prochlorperazine Edisylate 10 mg 04/02/17 20:39 Compazine Inj IVP Q6HR PRN Nausea / Vomiting Promethazine HCl 25 mg 04/02/17 20:39 Phenergan Inj IM Q6HR PRN Nausea / Vomiting Propranolol HCl 60 mg 04/02/17 21:00 04/03/17 20:13 Inderal PO 60 mg BID ROSIE Administration Quetiapine Fumarate 800 mg 04/02/17 22:00 04/03/17 20:13 Seroquel PO 800 mg QPM ROSIE Administration Sodium Chloride 10 ml 04/02/17 20:39 Normal Saline Flush 0.9% IVP PRN PRN NEEDED PER PROVIDER ORDERS Sodium Chloride 10 ml 04/02/17 22:00 04/03/17 19:35 Normal Saline Flush 0.9% IVP 10 ml Q8HR ROSIE Administration Bupropion HCl [Bupropion HCl Sr] 200 mg PO DAILY 05/23/16 Gabapentin 300 mg PO QPM 05/23/16 Propranolol [Inderal] 60 mg PO BID 05/23/16 hydrOXYzine pamoate [Hydroxyzine Pamoate] 50 mg PO 0900,1600 05/23/16 hydrOXYzine pamoate [Hydroxyzine Pamoate] 150 mg PO QPM 05/23/16 Mirtazapine 7.5 mg PO QPM 08/28/16 Quetiapine Fumarate [Seroquel] 800 mg PO QPM 08/28/16 Oxycodone HCl/Acetaminophen [Oxycodone-Acetaminophen 5-325] 1 each PO Q6H PRN Objective - Vital Signs/Intake & Output Reviewed Vital Signs: Yes Vital Signs: Vital Signs x48h Temp Pulse Resp BP Pulse Ox 04/03/17 07:59 36.7 C 82 12 119/82 H 98 04/03/17 06:00 36.3 C L 86 18 106/72 97 Intake & Output: Intake & Output 03/31/17 04/01/17 04/02/17 04/03/17 23:59 23:59 23:59 23:59 Intake Total 577.5 2050 Output Total 1520 Balance 577.5 530 - Objective General Appearance: positive: No acute distress ENT: positive: ENT inspection nml, Pharynx nml Neck: positive: Nml inspection, Thyroid nml, No JVD, Trachea midline Respiratory: positive: Chest non-tender, No respiratory distress, Breath sounds nml Cardiovascular: positive: Regular rate & rhythm, No murmur, No gallop Peripheral Pulses: 1+ Radial (R), 1+ Radial (L), 1+ Dorsalis pedis (R), 1+ Dorsalis pedis (L) Abdomen: positive: Non-tender, Guarding Back: positive: Nml inspection Skin: positive: Color nml, No rash, Warm, Diaphoresis (at times.) Extremities: positive: Non-tender, Pedal edema, Other (right leg weakness due to right hip arthroplasty.) Neurologic/Psychiatric: positive: Oriented x3 Reflexes: Bicep (R): 1+, Bicep (L): 3+, Ankle (R): 1+, Ankle (L): 2+ - Lab Results Fish Bones: 04/03/17 06:13 04/03/17 06:13 Other Labs: Lab Results x24hrs 04/03/17 04/03/17 04/03/17 Range/Units 06:13 06:13 06:13 WBC 6.9 (4.8-10.8) x10^3/uL RBC 3.43 L (4.70-6.10) 10^6/uL Hgb 10.7 L (14.0-18.0) g/dL Hct 31.8 L (42.0-52.0) % MCV 92.6 (80.0-94.0) fL MCH 31.0 (27.0-31.0) pg MCHC 33.5 (32.0-36.0) g/dL RDW 16.7 H (12.0-15.0) % Plt Count 332 (130-450) 10^3/uL MPV 6.6 L (7.4-11.4) fL Neut # 4.7 (1.5-6.6) 10^3/uL Lymph # 1.4 L (1.5-3.5) 10^3/uL [place] # 0.5 (0.0-1.0) 10^3/uL Eos # 0.2 (0.0-0.7) 10^3/uL Baso # 0.0 (0.0-0.1) 10^3/uL Absolute Nucleated RBC 0.00 x10^3/uL Nucleated RBC % 0.0 /100WBC PT 12.7 H (9.9-12.6) secs INR 1.1 (0.8-1.2) Sodium 143 (135-145) mmol/L Potassium 3.7 (3.5-5.0) mmol/L Chloride 112 H (101-111) mmol/L Carbon Dioxide 22 (21-32) mmol/L Anion Gap 9.0 (6-13) BUN 10 (6-20) mg/dL Creatinine 0.7 (0.6-1.2) mg/dL Estimated GFR (MDRD) 118 (>89) Glucose 84 (70-100) mg/dL Calcium 8.4 L (8.5-10.3) mg/dL Phosphorus 3.4 (2.5-4.6) mg/dL Magnesium 1.5 L (1.7-2.8) mg/dL Total Bilirubin 0.7 (0.2-1.0) mg/dL AST 97 H (10-42) IU/L ALT 32 (10-60) IU/L Alkaline Phosphatase 51 (42-121) IU/L Total Creatine Kinase 3529 H* (22-269) IU/L Total Protein 5.7 L (6.7-8.2) g/dL Albumin 3.0 L (3.2-5.5) g/dL Globulin 2.7 (2.1-4.2) g/dL Albumin/Globulin Ratio 1.1 (1.0-2.2) 04/02/17 Range/Units 23:04 WBC (4.8-10.8) x10^3/uL RBC (4.70-6.10) 10^6/uL Hgb (14.0-18.0) g/dL Hct (42.0-52.0) % MCV (80.0-94.0) fL MCH (27.0-31.0) pg MCHC (32.0-36.0) g/dL RDW (12.0-15.0) % Plt Count (130-450) 10^3/uL MPV (7.4-11.4) fL Neut # (1.5-6.6) 10^3/uL Lymph # (1.5-3.5) 10^3/uL Bryan # (0.0-1.0) 10^3/uL Eos # (0.0-0.7) 10^3/uL Baso # (0.0-0.1) 10^3/uL Absolute Nucleated RBC x10^3/uL Nucleated RBC % /100WBC PT (9.9-12.6) secs INR (0.8-1.2) Sodium (135-145) mmol/L Potassium (3.5-5.0) mmol/L Chloride (101-111) mmol/L Carbon Dioxide (21-32) mmol/L Anion Gap (6-13) BUN (6-20) mg/dL Creatinine (0.6-1.2) mg/dL Estimated GFR (MDRD) (>89) Glucose (70-100) mg/dL Calcium (8.5-10.3) mg/dL Phosphorus (2.5-4.6) mg/dL Magnesium (1.7-2.8) mg/dL Total Bilirubin (0.2-1.0) mg/dL AST (10-42) IU/L ALT (10-60) IU/L Alkaline Phosphatase (42-121) IU/L Total Creatine Kinase 4719 H* (22-269) IU/L Total Protein (6.7-8.2) g/dL Albumin (3.2-5.5) g/dL Globulin (2.1-4.2) g/dL Albumin/Globulin Ratio (1.0-2.2) - Diagnostic Imaging Diagnostic Imaging Results: positive: Final report reviewed Assessment/Plan - Problem List (1) Rhabdomyolysis Impression: Banana bag and NS infusing. Serial CK checks. Qualifiers: Rhabdomyolysis type: non-traumatic Qualified Code(s): M62.82 - Rhabdomyolysis (2) Weakness Impression: Patient is on fall precautions. PT/OT is consulted. (3) Altered mental status Impression: Patient was A & O x4 during exam but requested sedatives. Qualifiers: Altered mental status type: unspecified Qualified Code(s): R41.82 - Altered mental status, unspecified (6) Peripheral neuropathy Impression: Patient admits to this disease process and is proud to say he is not a diabetic. (7) Prophylactic use of low molecular weight heparin for venous thromboembolism Impression: We will continue to use DVT prophylaxis due to his high risk status.
[2017-04-03] MEDS: IOPAMIDOL-300 100 ML VIAL IVP ONE (08:41)
[2017-04-03] MEDS ORDERED: IOPAMIDOL-300 100 ML VIAL IVP ONE (08:41)
[2017-04-03] MEDS: LORazepam 0.5 MG TABLET PO PRN ×3 (08:58→23:02)
[2017-04-03] MEDS: PROPRANOLOL 40 MG TABLET PO SCH ×3 (08:58→20:36)
[2017-04-03] MEDS: buPROPion SR 100 MG TABLET PO SCH (08:58)
[2017-04-03] MEDS: FAMOTIDINE 20 MG TABLET PO SCH (08:58)
[2017-04-03] MEDS: ASPIRIN 325 MG TABLET PO SCH (08:58)
[2017-04-03] MEDS: ENOXAPARIN 40 MG/0.4 ML SYRINGE SUBQ SCH (08:58)
--- NOTE | 2017-04-03 10:23 | CT Preliminary Report ---
Exam: CT NECK ANGIO Impression: 1. There is minor atherosclerotic change at the carotid bifurcations. No associated carotid artery st enosis. 2. Normal appearance of the extracranial vertebral arteries. SITE ID: [id number]
--- NOTE | 2017-04-03 10:31 | CT Preliminary Report ---
Exam: CT HEAD ANGIO Impression: Head CT No acute intracranial pathology. In particular, no intracranial hemorrhage and no evidence of acute, large vessel territory cortical infarction. CT angiogram head Normal examination. SITE ID: [id number]
--- NOTE | 2017-04-03 10:51 | CT Report ---
CT ANGIOGRAM NECK INDICATION: 52-year-old male with right-sided weakness and slurred speech. Concern for CVA. Please as sess. COMPARISON: None. TECHNIQUE: 80 mL of Isovue-300 contrast were injected at a rapid rate through a large bore, left ante cubital intravenous catheter. The neck was scanned helically during arterial phase. Data was reconstr ucted into 0.5 mm axial images. In addition, MIP reconstructions have been generated in multiple proj ections to allow better assessment of the extracranial carotid and vertebral arteries. In accordance with CT protocol optimization, one or more of the following dose reduction techniques w ere utilized for this exam: automated exposure control, adjustment of mA and/or KV based on patient s ize, or use of iterative reconstructive technique. FINDINGS: There is normal branching of the aortic arch. No stenoses are demonstrated in the first order, supraa ortic arteries. Right Carotid Artery: There is minimal calcified plaque at the carotid bifurcation. No associated mansi nosis. There is elongation and tortuosity of extracranial ICA with prominent hairpin loop just below the skull base. No associated stenosis. Left Carotid Artery: Minor calcified plaque along the medial wall of the carotid bifurcation with ext ension into the bulb. No associated stenosis. Elongation and tortuosity of extracranial ICA with prom inent hairpin loops below the skull base. No associated stenosis. Right Vertebral Artery: Patent from origin to distal V3 segment. No focal stenosis or dissection is d emonstrated. Left Vertebral Artery: Patent from origin to distal v3 segment. No focal stenosis is demonstrated. IMPRESSION: 1. There is minor atherosclerotic change at the carotid bifurcations. No associated carotid artery st enosis. 2. Normal appearance of the extracranial vertebral arteries. Referring Provider Line: [phone] SITE ID: [id number]
--- NOTE | 2017-04-03 10:52 | CT Report ---
CT HEAD WITHOUT AND WITH CONTRAST AND CT ANGIOGRAM HEAD INDICATION: 52-year-old male with right-sided weakness and slurred speech. Concern for CVA. Please as sess. COMPARISON: Head CT 04/02/2017. TECHNIQUE: Head CT: Sequential 5 mm axial images were obtained through the brain prior to and following the CT angiogram. CT Angiogram: 80 mL of Isovue-300 contrast were injected at a rapid rate through a large bore, left a ntecubital intravenous catheter. The head was scanned helically during arterial phase. Data was recon structed into 0.5 mm axial images. In addition, MIP reconstructions have been generated in multiple p rojections to allow better assessment of the intracranial arteries. In accordance with CT protocol optimization, one or more of the following dose reduction techniques w ere utilized for this exam: automated exposure control, adjustment of mA and/or KV based on patient s ize, or use of iterative reconstructive technique. FINDINGS: Head CT: Stable appearance of the brain when compared to examination 04/02/2017. No new intracranial pathology is demonstrated. In particular, there is no intracranial hemorrhage and no evidence of acute, large vessel territory cortical infarction. Postcontrast sequence shows no evidence of an enhancing intracranial space-occupying mass lesion. The re is normal intravascular contrast enhancement in the dural venous sinuses and deep venous structure s. The mastoid air cells and middle ear cavities are clear. The imaged paranasal sinuses appear clear. CT Angiogram Head: Anterior Circulation: The internal carotid arteries appear widely patent bilaterally. No ICA aneurysm is identified. The A1 segments of the anterior cerebral arteries are essentially codominant. An anterior communicating art greg is demonstrated. There appears to be good filling of the A2 and distal EDDY branches bilaterally. No obvious EDDY branch occlusion is demonstrated. Of note, there is an infundibulum at the origin of t he right A2. This should not be mistaken for an aneurysm. The middle cerebral arteries are unremarkab le. No aneurysm is demonstrated, and there is no evidence of occlusion or hemodynamically significant stenosis affecting the main branches of either middle cerebral artery. There appear to be a similar number of opacified M3 and M4 branches bilaterally. Posterior Circulation: The vertebral artery and PICA's appear patent. No evidence of aneurysm at either PICA origin. The bas ilar artery is tortuous but widely patent. There appears to be good filling of the superior cerebella r arteries and posterior cerebral arteries. Neither posterior communicating artery is identified with certainty. No aneurysms are seen arising from the basilar artery trunk or apex. IMPRESSION: Head CT: No acute intracranial pathology. In particular, no intracranial hemorrhage and no evidence of acute, large vessel territory cortical infarction. CT Angiogram Head: Normal examination. Referring Provider Line: [phone] SITE ID: [id number]
[2017-04-03] MEDS: POLYETHYLENE GLYCOL 3350 17 GM PACKET PO SCH (11:04)
[2017-04-03] MEDS: THIAMINE INJ 100 MG, FOLIC ACID INJ 1 MG in SODIUM CHLORIDE 0.9% 100ML 100 ML IV SCH (11:04)
[2017-04-03] MEDS: MULTIVITAMIN 10 ML in SODIUM CHLORIDE 0.9% 1,000 ML IV SCH (11:04)
--- NOTE | 2017-04-03 11:43 | MRI Preliminary Report ---
Exam: MRI BRAIN W/O IMPRESSION: Normal MRI appearance of the brain. No acute intracranial abnormality. SITE ID: [id number]
--- NOTE | 2017-04-03 11:45 | MRI Report ---
EXAM: MRI BRAIN WITHOUT CONTRAST EXAM DATE: 04/03/2017 09:50 AM. CLINICAL HISTORY: RIght sided weakness and slurred speech. COMPARISON: No prior MRI. TECHNIQUE: Multiplanar, multisequence T1-weighted and fluid-sensitive MR sequences of the brain were performed. Sequences optimized for routine evaluation. Other: None. IV Contrast: None. FINDINGS: Brain Volume: Normal for age. Parenchyma/Dura: No mass, acute infarct or hemorrhage. No white matter lesions identified. Ventricles/Cisterns: No hydrocephalus. No abnormal extra-axial fluid collection or hemorrhage. Sinuses: Minimal nonspecific paranasal sinus mucosal thickening. Bones: No focal pathologic appearing marrow signal changes. Other: None. IMPRESSION: Normal MRI appearance of the brain. No acute intracranial abnormality. Referring Provider Line: [phone] SITE ID: [id number]
[2017-04-03] MEDS ORDERED: oxyCOD/ACETAMIN 5 MG/325 MG TABLET PO PRN (18:28)
[2017-04-03] MEDS: ATORVASTATIN 40 MG TABLET PO SCH ×2 (20:13)
[2017-04-04] MEDS: LORazepam 0.5 MG TABLET PO PRN ×2 (03:30→09:02)
[2017-04-04] MEDS: SODIUM CHLORIDE 0.9% 1,000 ML IV SCH (03:38)
[2017-04-04] MEDS: HYDROcod/ACETAM 10 MG/325 MG TABLET PO PRN ×2 (04:24→09:01)
[2017-04-04 05:00] LABS: BASOPHILS % (AUTO) 0.8 %; EOSINOPHILS # (AUTO) 0.4 10^3/uL (0.0-0.7); EOSINOPHILS % (AUTO) 8.9 %; HCT - HEMATOCRIT 29.2 % (42.0-52.0); HGB - HEMOGLOBIN 9.6 g/dL (14.0-18.0); LYMPHOCYTES # (AUTO) 1.8 10^3/uL (1.5-3.5); LYMPHOCYTES % (AUTO) 40.4 %; MEAN CORPUSCULAR HEMOGLOBIN 30.7 pg (27.0-31.0); MEAN CORPUSCULAR VOLUME 92.8 fL (80.0-94.0); MONOCYTES # (AUTO) 0.5 10^3/uL (0.0-1.0); MONOCYTES % (AUTO) 11.9 %; NEUTROPHILS # (AUTO) 1.7 10^3/uL (1.5-6.6); NUCLEATED RED BLOOD CELLS AUTO 0.1 /100WBC; RED BLOOD COUNT 3.14 10^6/uL (4.70-6.10); RED CELL DISTRIBUTION WIDTH 16.3 % (12.0-15.0); UNCORRECTED WHITE BLOOD COUNT 4.5 x10^3/uL; WHITE BLOOD COUNT 4.5 x10^3/uL (4.8-10.8)
[2017-04-04] MEDS: SODIUM CHLORIDE FLUSH 0.9% 10 ML SYRINGE IVP SCH (05:06)
[2017-04-04 05:22] LABS: BILIRUBIN,TOTAL 0.4 mg/dL (0.2-1.0); CALCIUM 8.1 mg/dL (8.5-10.3); CREATININE 0.6 mg/dL (0.6-1.2); MAGNESIUM 1.3 mg/dL (1.7-2.8); PHOSPHORUS 3.1 mg/dL (2.5-4.6); POTASSIUM 3.4 mmol/L (3.5-5.0); TOTAL PROTEIN 5.3 g/dL (6.7-8.2)
[2017-04-04] MEDS: MAGNESIUM OXIDE 400 MG TABLET PO SCH ×2 (06:54→07:04)
[2017-04-04] MEDS ORDERED: POTASSIUM CHLORIDE 20 MEQ TABLET PO SCH (07:00)
[2017-04-04] MEDS: ASPIRIN 325 MG TABLET PO SCH (09:01)
[2017-04-04] MEDS: PROPRANOLOL 40 MG TABLET PO SCH (09:01)
[2017-04-04] MEDS: FAMOTIDINE 20 MG TABLET PO SCH (09:01)
[2017-04-04] MEDS: POLYETHYLENE GLYCOL 3350 17 GM PACKET PO SCH (09:02)
[2017-04-04] MEDS: ENOXAPARIN 40 MG/0.4 ML SYRINGE SUBQ SCH (09:02)
[2017-04-04] MEDS: MULTIVITAMIN 10 ML in SODIUM CHLORIDE 0.9% 1,000 ML IV SCH (09:02)
[2017-04-04] MEDS: buPROPion SR 100 MG TABLET PO SCH (09:02)
[2017-04-04] MEDS: THIAMINE INJ 100 MG, FOLIC ACID INJ 1 MG in SODIUM CHLORIDE 0.9% 100ML 100 ML IV SCH (09:03)
[2017-04-04 09:15] VITALS: BP 101/70
--- NOTE | 2017-04-04 11:24 | Discharge Plan ---
Discharge Plan Disposition: 01 Home, Self Care Condition: Good Diet: Regular Activity Restrictions: Activity as Tolerated (use your walker for safety.) Shower Restrictions: No Driving Restrictions: Yes (Please no driving today due to weakness.) Assistance Devices: Walker Weight Bearing: Partial Weight (as per ortho recommendations.) Additional Instructions or Follow Up instructions: Please see PCP on Thursday or Thursday as a follow up to this hospital stay. Avoid alcohol use, drug use or tobacco use. Take medications as prescribed. No Smoking: If you smoke, Please STOP! Call for help. Follow-up with: Lisette Freeman ARNP [Primary Care Provider] -
--- NOTE | 2017-04-04 11:25 | DISCHARGE SUMMARY ---
Discharge Summary Admit Date: 04/02/17 Discharge Date: 04/04/17 Discharging Provider: CANDICE Kingsley Primary Care Provider: Chase Quick Code Status: Do Not Attempt Resuscitation Condition at Discharge: Good Discharge Disposition: 01 Home, Self Care - DIAGNOSES Admission Diagnoses: Problem List (1) Rhabdomyolysis Conclusion/Plan: The patient was down on the floor for greater than 16 hours according to his mother. The patient developed rhabdomyolysis with a CK of over 7000. Patient does not have any renal failure. Plan: Give patient IV fluids Monitor CK Monitor renal function Qualifiers: Rhabdomyolysis type: non-traumatic Qualified Code(s): M62.82 - Rhabdomyolysis (2) Right sided weakness Conclusion/Plan: The patient appears to have new right-sided weakness. 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 Given that the patient was down for an extended period of time more than what he is typically down for after binge drinking this is concerning for possibility of a stroke. The patient did get a CT of his head in the emergency department which did not show any acute stroke. Plan: Patient will get an MRI and CT angios his head and neck while he is hospitalized We will get neuro checks every 4 hours Patient will be placed on aspirin and Lipitor while he is hospitalized We will assess patient for need for PT and OT. (3) Altered mental status Conclusion/Plan: The patient is having altered mental status. Initially the patient was lethargic difficult to arouse he is much more arousable now but he is confabulating and very confused. This is not at the patient's normal baseline. Patient's altered mental status may be secondary to stroke or from concussion from falling to the floor although he does not have any significant findings of trauma on his scalp. The patient may also be going through alcohol withdrawal as he is having some visual hallucinations. Plan: Neurochecks MRI and CT angiogram of head and neck Alcohol withdrawal protocol Monitor closely Qualifiers: Altered mental status type: unspecified Qualified Code(s): R41.82 - Altered mental status, unspecified (4) Alcohol abuse Conclusion/Plan: Patient has history of alcohol abuse and drinks daily. According to his mom he continues to drink daily. Patient's alcohol level is negative on presentation his last drink was last night. Patient is having altered mental status and having some visual hallucinations is concerning for possibility of alcohol withdrawal. Patient's vital signs however are normal and he is not having any tremors at this time. Plan: Patient will be placed on alcohol withdrawal protocol with Ativan as needed Patient will get multivitamin, thiamine, folic acid and magnesium IV. Patient will be counseled on need to quit drinking once he is more alert. Consult social work (5) Acute urinary retention Conclusion/Plan: On presentation to the emergency department the patient did have significant urinary retention and a Paez catheter was placed in the emergency room. Patient probably has urinary retention secondary to being passed out and not having been alert enough to have urinated. Plan: We will continue to give the patient IV fluids and will remove the Paez catheter once he is more alert and awake and then do a postvoid residual. (7) Peripheral neuropathy Conclusion/Plan: The patient has history of peripheral neuropathy and is on gabapentin at home. Patient will be continued on his home dose of gabapentin Patient does have sensory deficits in bilateral lower extremities. (8) Prophylactic use of low molecular weight heparin for venous thromboembolism Conclusion/Plan: Patient will be placed on Lovenox for DVT prophylaxis while he is hospitalized. Discharge Diagnoses with Status of Each Condition: Problem List (1) Rhabdomyolysis Impression: Banana bag and NS infusing. Serial CK checks. Qualifiers: Rhabdomyolysis type: non-traumatic Qualified Code(s): M62.82 - Rhabdomyolysis (2) Weakness Impression: Patient is on fall precautions. PT/OT is consulted. (3) Altered mental status Impression: Patient was A & O x4 during exam but requested sedatives. Qualifiers: Altered mental status type: unspecified Qualified Code(s): R41.82 - Altered mental status, unspecified (6) Peripheral neuropathy Impression: Patient admits to this disease process and is proud to say he is not a diabetic. (7) Prophylactic use of low molecular weight heparin for venous thromboembolism Impression: We will continue to use DVT prophylaxis due to his high risk status. - HPI History of Present Illness: Patient is a 52-year-old gentleman with a past medical history significant for alcohol abuse, substance abuse, history of Guillain [place] syndrome diagnosed in 2010, hypertension, idiopathic neuropathy, chronic right hip arthralgia, chronic pain, depression with anxiety who presented to the emergency department with a chief complaint of altered mental status. The patient was down on the floor for greater than 16 hours according to his mother. The patient developed rhabdomyolysis with a CK of over 7000. The patient appears to have new right- sided weakness. 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 The patient did get a CT of his head in the emergency department which did not show any acute stroke. - ALLERGIES Allergies/Adverse Reactions: Allergies Allergy/AdvReac Type Severity Reaction Status Date / Time lisinopril Allergy Mild Edema Verified 02/23/17 22:53 - MEDICATIONS Home Medications: Ambulatory Orders Medication Instructions Recorded Confirmed Bupropion HCl [Bupropion HCl Sr] 200 mg PO DAILY 05/23/16 04/02/17 Gabapentin 300 mg PO QPM 05/23/16 04/02/17 Propranolol [Inderal] 60 mg PO BID 05/23/16 04/02/17 hydrOXYzine pamoate [Hydroxyzine 50 mg PO 0900,1600 05/23/16 04/02/17 Pamoate] hydrOXYzine pamoate [Hydroxyzine 150 mg PO QPM 05/23/16 04/03/17 Pamoate] Mirtazapine 7.5 mg PO QPM 08/28/16 04/02/17 Quetiapine Fumarate [Seroquel] 800 mg PO QPM 08/28/16 04/02/17 Folic Acid 1 mg PO DAILY #30 tablet 08/30/16 04/02/17 Multivitamin [Theragran] 1 tab PO DAILYWM #30 tablet 08/30/16 04/02/17 Thiamine [Vitamin B-1] 100 mg PO DAILY #30 tablet 08/30/16 04/02/17 Sucralfate 1 gm PO ACHS #60 tablet 09/11/16 04/02/17 Lorazepam [Ativan] 1 mg PO TID PRN #7 tablet 09/16/16 04/02/17 Oxycodone HCl/Acetaminophen 1 each PO Q6H PRN 04/03/17 04/03/17 [Oxycodone-Acetaminophen 5-325] - PHYSICAL EXAM AT DISCHARGE General Appearance: positive: No acute distress Eyes Bilateral: positive: Normal inspection, PERRL ENT: positive: ENT inspection nml, Pharynx nml, No signs of dehydration Neck: positive: Nml inspection, Thyroid nml, No JVD, Trachea midline Respiratory: positive: Chest non-tender, No respiratory distress, Breath sounds nml Cardiovascular: positive: Regular rate & rhythm, No murmur Peripheral Pulses: positive: 1+ Abdomen: positive: Non-tender, No organomegaly, Nml bowel sounds, No distention Back: positive: Nml inspection Skin: positive: Color nml, No rash, Warm, Dry Extremities: positive: Non-tender, Pedal edema (trace) Neurologic/Psychiatric: positive: Oriented x3 - LABS Result Diagrams: 04/04/17 04:41 04/04/17 04:41
[2017-04-04] MEDS ORDERED: LORazepam 0.5 MG TABLET PO PRN (11:32)
[2017-04-04] MEDS ORDERED: SODIUM CHLORIDE 0.9% 1,000 ML IV SCH (12:00)
[2017-04-04] MEDS ORDERED: hydrOXYzine PAMOATE 25 MG CAPSULE PO SCH ×2 (16:00→21:00)
[2017-04-04] MEDS ORDERED: SUCRALFATE 1 GM/10 ML UDC PO SCH (16:00)
[2017-04-04] MEDS ORDERED: MIRTAZAPINE 15 MG TABLET PO SCH (21:00)
[2017-04-04] MEDS ORDERED: GABAPENTIN 100 MG CAPSULE PO SCH (21:00)
[2017-04-05] MEDS ORDERED: NON FORMULARY MED (Sucralfate [Sucralfate] 1 GM) PO SCH (07:00)
[2017-04-05] MEDS ORDERED: MULTIVITAMIN TABLET PO SCH (08:00)
[2017-04-05] MEDS ORDERED: THIAMINE 100 MG TABLET PO SCH (09:00)
[2017-04-05] MEDS ORDERED: FOLIC ACID 1 MG TABLET PO SCH (09:00)
[2017-04-05] MEDS ORDERED: HYDROXYZINE PAMOATE 50 MG PO SCH (09:00)
[2017-04-05] MEDS ORDERED: NON FORMULARY MED (Lorazepam [Ativan] 1 MG) PO PRN (09:00)
[2017-04-05] MEDS ORDERED: HYDROXYZINE PAMOATE PO SCH (21:00)
== END 2017-04-04 13:49 | disposition home or self-care (01) ==
LOC: EDUNIT# → ED 17:50 → OBS 20:39
PROVIDERS: ADMIT Internal Medicine; ATTEND Nurse Practitioner
DX: M62.82 Rhabdomyolysis (principal); R41.82 Altered mental status, unspecified; R53.1 Weakness; R29.810 Facial weakness; F10.10 Alcohol abuse, uncomplicated; R33.9 Retention of urine, unspecified; F17.210 Nicotine dependence, cigarettes, uncomplicated; F32.9 Major depressive disorder, single episode, unspecified; F41.9 Anxiety disorder, unspecified; I10 Essential (primary) hypertension; K21.9 Gastro-esophageal reflux disease without esophagitis; G89.29 Other chronic pain; M19.90 Unspecified osteoarthritis, unspecified site; Z79.891 Long term (current) use of opiate analgesic; Z79.899 Other long term (current) drug therapy; Z66 Do not resuscitate; G62.9 Polyneuropathy, unspecified; G60.9 Hereditary and idiopathic neuropathy, unspecified; Z96.641 Presence of right artificial hip joint; Z86.69 Personal history of other diseases of the nervous system and sense organs; Z72.89 Other problems related to lifestyle; Z91.81 History of falling
CPT/HCPCS: 36415; 51702; 70450; 70496; 70498; 70551; 71260; 72125; 74177; 80053; 80306; 80307; 80320; 80329; 81003; 82550; 83690; 83735; 84100; 84484; 85025; 85610; 93005; 93306; 96361; 96365; 96366; 96367; 96368; 96372; 96375; 96376; 99285; A9270; G0378; J1650; J2060; J3411; Q9967; 81001; 87086

== ENCOUNTER 2017-04-13 17:33 | Outpatient (CLI) | payer OTHER, MEDICAID | END 2017-04-13 17:34 | disposition EMS.NT | LOC: EMS 17:33 | PROVIDERS: ATTEND Surgery | DX: Z04.1 Encounter for examination and observation following transport accident (principal); V47.5XXA Car driver injured in collision with fixed or stationary object in traffic accident, initial encounter; Y92.414 Local residential or business street as the place of occurrence of the external cause ==

== ENCOUNTER 2017-04-16 12:57 | Inpatient (IN) | payer MEDICAID ==
[2017-04-16] MEDS ORDERED: KETOROLAC 60 MG/2 ML VIAL IM STA (13:23)
--- NOTE | 2017-04-16 13:27 | ED Physician Documentation ---
PD HPI LOWER EXT INJURY - Stated complaint Stated Complaint: R HIP PX - Chief complaint Chief Complaint: Ext Problem - History obtained from History obtained from: Patient, Family (mother) - History of Present Illness PD HPI LOW EXT INJURY LOCATION: Other (52-year-old gentleman with history of alcoholism, neuropathy, and remote history of Gu[place] syndrome. He usually walks with a walker. About 6 weeks ago he had a right total hip replacement done. He was in a correction for a while after and now is at home. He says he is not taking any pain medication for it. He says his last drink was about 3 days ago, "overall I have been a pretty good boy." Last night he was on the toilet and then fell off onto the right hip. Now has worse than normal right hip pain, also the knee and ankle. No head or neck injury.) Review of Systems Ten Systems: 10 systems reviewed and negative Constitutional: denies: Fever, Chills Cardiac: denies: Chest pain / pressure, Palpitations Respiratory: denies: Dyspnea, Cough GI: denies: Abdominal Pain, Nausea, Vomiting, Bloody / black stool PD PAST MEDICAL HISTORY - Past Medical History Cardiovascular: Hypertension Respiratory: Sleep apnea Neuro: Peripheral neuropathy, Tremors, Other Endocrine/Autoimmune: None GI: GERD, Pancreatitis : Incontinence HEENT: None Psych: Depression, Anxiety Musculoskeletal: Osteoarthritis Derm: None - Past Surgical History Past Surgical History: Yes Ortho: Hip replacement, Arthroscopic surgery HEENT: Tracheostomy - Present Medications Home Medications: Ambulatory Orders Medication Instructions Recorded Confirmed Bupropion HCl [Bupropion HCl Sr] 200 mg PO DAILY 05/23/16 04/16/17 Gabapentin 300 mg PO QPM 05/23/16 04/16/17 Propranolol [Inderal] 60 mg PO BID 05/23/16 04/16/17 hydrOXYzine pamoate [Hydroxyzine 150 mg PO QPM 05/23/16 04/16/17 Pamoate] Mirtazapine 7.5 mg PO QPM 08/28/16 04/16/17 Quetiapine Fumarate [Seroquel] 800 mg PO QPM 08/28/16 04/16/17 Folic Acid 1 mg PO DAILY #30 tablet 08/30/16 04/16/17 Multivitamin [Theragran] 1 tab PO DAILYWM #30 tablet 08/30/16 04/16/17 Sucralfate 1 gm PO ACHS #60 tablet 09/11/16 04/16/17 Lorazepam [Ativan] 1 mg PO TID PRN #7 tablet 09/16/16 04/16/17 Oxycodone HCl/Acetaminophen 1 each PO Q6H PRN 04/03/17 04/16/17 [Oxycodone-Acetaminophen 5-325] fentaNYL [Fentanyl 25mcg patch] 25 mcg TOP ONCE 04/16/17 04/16/17 - Allergies Allergies/Adverse Reactions: Allergies Allergy/AdvReac Type Severity Reaction Status Date / Time lisinopril Allergy Mild Edema Verified 02/23/17 22:53 - Social History Does the pt smoke?: No Smoking Status: Never smoker Does the pt drink ETOH?: Yes Does the pt have substance abuse?: Yes - Immunizations Immunizations are current?: Yes Immunizations: Other immun not current - POLST Patient has POLST: No POLST Status: DNR (pt clearly state to me it is DNR, Pt's mother at the bedside did not say no.) PD ED PE NORMAL - Vitals Vital signs reviewed: Yes - General General: 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, Other (He appears pale, slightly slurred and slow speech.) - HEENT HEENT: PERRL, EOMI - Neck Neck: Supple, no meningeal sign, No bony TTP - Cardiac Cardiac: RRR, No murmur - Respiratory Respiratory: No respiratory distress, Clear bilaterally - Abdomen Abdomen: Soft, Non tender - Back Back: No CVA TTP, No spinal TTP - Derm Derm: Normal color, Warm and dry - Extremities Extremities: Other (Right hip incision is clean dry and intact with out evidence of dehiscence. He is tender over the right hip, medial right knee, and both malleoli of the right ankle. He does have pain with rotation of the right leg but says the pain with that is in the ankle. Not the hip.) - Neuro Neuro: 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, Normal speech - Psych Psych: Normal mood, Normal affect Results - Vitals Vitals: Vital Signs - 24 hr 04/16/17 04/16/17 04/16/17 13:08 14:34 16:56 Temperature 35.7 C L 36.2 C L Heart Rate 86 74 70 Respiratory 17 18 18 Rate Blood Pressure 118/78 112/85 H 109/80 O2 Saturation 99 95 98 04/16/17 04/16/17 18:53 20:48 Temperature 36.5 C 36.0 C L Heart Rate 81 79 Respiratory 16 20 Rate Blood Pressure 108/77 103/66 O2 Saturation 98 99 Oxygen O2 Source Room air - Labs Labs: Laboratory Tests 04/16/17 04/16/17 04/16/17 13:37 13:37 13:37 WBC 7.9 RBC 3.23 L Hgb 9.8 L Hct 28.9 L MCV 89.6 MCH 30.3 MCHC 33.9 RDW 16.6 H Plt Count 320 MPV 7.1 L Neut # 5.3 Lymph # 1.3 L [place] # 1.1 H Eos # 0.0 Baso # 0.0 Absolute Nucleated RBC 0.00 Nucleated RBC % 0.0 Sodium 139 Potassium 3.5 Chloride 102 Carbon Dioxide 24 Anion Gap 13.0 BUN 17 Creatinine 0.8 Estimated GFR (MDRD) 101 Glucose 107 H Calcium 9.2 Total Bilirubin 1.1 H AST 36 ALT 26 Alkaline Phosphatase 97 Total Creatine Kinase 200 Total Protein 6.8 Albumin 3.6 Globulin 3.2 Albumin/Globulin Ratio 1.1 Lipase 23 Acetaminophen < 10 L Ethyl Alcohol < 5.0 - Rads (name of study) R hip/femur/ankle and knee XRs Radiology: EMP read contemporaneously (Subtroch hip frx with intact hardware. No other frx.) PD MEDICAL DECISION MAKING - ED course ED course: Review of the BLOGS MANAGER system is in contrast to the patient's history, he says he has not been on any pain medication recently. It looks like there is a Dr. Parmar who is actively prescribing fentanyl patches and oxycodone/ acetaminophen. Last prescription was for fentanyl 25 mcg Patches, he received 5 patches which should be a 15 day supply on April 03, and 2 days prior to that received 120 x 5 mg oxycodone/acetaminophen tablets. He is found to have a periprosthetic hip fracture on the right, this was discussed by phone with his orthopedist, Dr. Chase Amador who reviewed his x- rays. Initial plan was for nonweightbearing status, however when I discussed with him that the patient's leg is supinated such that his foot is pointing laterally he became concerned and felt like it would be a very difficult case and recommended referral to the [facility] system. After some delay I did speak with the transfer center at the [facility] in their orthopedist reviewed the films, they feel like he would be appropriate for transfer to [facility], but only take admissions for the orthopedic service between 7 5 on Thursday through Thursday. They recommend that we admit the patient here with the plan that they will call us with the bed and accepting physician tomorrow morning. Spoke with Dr Mcnally for admit by phone after shift change. Departure - Departure Disposition: [facility] DC/Xfer Clinical Impression: Periprosthetic fracture around internal prosthetic right hip joint Qualifiers: Encounter type: initial encounter Qualified Code(s): M97.01XA - Periprosthetic fracture around internal prosthetic right hip joint, initial encounter Condition: Stable Discharge Date/Time: 04/16/17 21:37
[2017-04-16] MEDS ORDERED: KETOROLAC 60 MG/2 ML VIAL ONE (13:31)
[2017-04-16 13:46] LABS: BASOPHILS % (AUTO) 0.6 %; EOSINOPHILS % (AUTO) 0.2 %; HCT - HEMATOCRIT 28.9 % (42.0-52.0); HGB - HEMOGLOBIN 9.8 g/dL (14.0-18.0); LYMPHOCYTES # (AUTO) 1.3 10^3/uL (1.5-3.5); LYMPHOCYTES % (AUTO) 16.9 %; MEAN CORPUSCULAR HEMOGLOBIN 30.3 pg (27.0-31.0); MEAN CORPUSCULAR HGB CONC 33.9 g/dL (32.0-36.0); MEAN CORPUSCULAR VOLUME 89.6 fL (80.0-94.0); MEAN PLATELET VOLUME 7.1 fL (7.4-11.4); MONOCYTES # (AUTO) 1.1 10^3/uL (0.0-1.0); MONOCYTES % (AUTO) 14.5 %; NEUTROPHILS # (AUTO) 5.3 10^3/uL (1.5-6.6); NEUTROPHILS % (AUTO) 67.8 %; RED BLOOD COUNT 3.23 10^6/uL (4.70-6.10); RED CELL DISTRIBUTION WIDTH 16.6 % (12.0-15.0); UNCORRECTED WHITE BLOOD COUNT 7.9 x10^3/uL; WHITE BLOOD COUNT 7.9 x10^3/uL (4.8-10.8)
[2017-04-16 13:57] LABS: ALBUMIN/GLOBULIN RATIO 1.1 (1.0-2.2); BILIRUBIN,TOTAL 1.1 mg/dL (0.2-1.0); BUN - BLOOD UREA NITROGEN 17 mg/dL (6-20); CALCIUM 9.2 mg/dL (8.5-10.3); CARBON DIOXIDE - CO2 24 mmol/L (21-32); CHLORIDE 102 mmol/L (101-111); CREATININE 0.8 mg/dL (0.6-1.2); GFR - MDRD 101 (>89); GLUCOSE 107 mg/dL (70-100); LIPASE 23 U/L (22-51); POTASSIUM 3.5 mmol/L (3.5-5.0); SODIUM 139 mmol/L (135-145); TOTAL PROTEIN 6.8 g/dL (6.7-8.2)
[2017-04-16 14:06] LABS: ACETAMINOPHEN < 10 ug/mL (10-30)
--- NOTE | 2017-04-16 15:44 | XRAY Preliminary Report ---
Exam: XR FEMUR 2V RT IMPRESSION: 1. Sub-trochanteric bony fracture of the right femur in a patient with hip arthroplasty and intramedu llary rahel. [facility] SITE ID: [id number]
--- NOTE | 2017-04-16 15:46 | XRAY Preliminary Report ---
Exam: XR ANKLE 3 VIEW RT IMPRESSION: No acute fracture or subluxation. [facility] SITE ID: [id number]
--- NOTE | 2017-04-16 15:47 | XRAY Report ---
EXAM: RIGHT FEMUR RADIOGRAPHY EXAM DATE: 04/16/2017 02:39 PM. CLINICAL HISTORY: Fall, hip and leg injury. COMPARISON: 08/01/2014. TECHNIQUE: 2 views. FINDINGS: Bones: There is a right hip arthroplasty prosthesis with an intramedullary rahel. There is an oblique f racture across the superior femur at the upper femoral diaphysis. The hardware appears intact. Joints: No dislocation visualized. Soft Tissues: Otherwise unremarkable. IMPRESSION: 1. Sub-trochanteric bony fracture of the right femur in a patient with hip arthroplasty and intramedu llary rahel. [facility] Referring Provider Line: [phone] SITE ID: [id number]
--- NOTE | 2017-04-16 15:49 | XRAY Report ---
EXAM: RIGHT ANKLE RADIOGRAPHY EXAM DATE: 04/16/2017 02:39 PM. CLINICAL HISTORY: Fall, hip and leg injury. COMPARISON: None. TECHNIQUE: 3 views. FINDINGS: Bones: There is degenerative disease with spurring of the medial and lateral malleolus. Joints: Joint space and alignment appear satisfactory. Soft Tissues: Normal. No soft tissue swelling. IMPRESSION: No acute fracture or subluxation. [facility] Referring Provider Line: [phone] SITE ID: [id number]
--- NOTE | 2017-04-16 15:51 | XRAY Preliminary Report ---
Exam: XR HIP W/PELVIS 2-3V RT IMPRESSION: Subtrochanteric fracture of the proximal right femur in patient with hip arthroplasty. [facility] SITE ID: [id number]
--- NOTE | 2017-04-16 15:54 | XRAY Report ---
EXAM: RIGHT HIP AND PELVIS RADIOGRAPHY EXAM DATE: 04/16/2017 02:39 PM. HISTORY: Fall, hip and leg injury. COMPARISONS: None. TECHNIQUE: 1 view of the pelvis and 1 view of the hip. FINDINGS: Bones: Positive for a subtrochanteric fracture of the proximal right femur. There is a right hip arth roplasty prosthesis. The hardware appears intact. Joints: There is satisfactory alignment of the right hip joint. Sacroiliac joints and pubic symphysis appear in satisfactory alignment. Soft Tissues: Normal. No soft tissue swelling. IMPRESSION: Subtrochanteric fracture of the proximal right femur in patient with hip arthroplasty. [facility] Referring Provider Line: [phone] SITE ID: [id number]
--- NOTE | 2017-04-16 15:55 | XRAY Preliminary Report ---
Exam: XR KNEE 4 VIEW RT IMPRESSION: Negative right knee. [facility] SITE ID: [id number]
--- NOTE | 2017-04-16 15:57 | XRAY Report ---
EXAM: RIGHT KNEE RADIOGRAPHY EXAM DATE: 04/16/2017 02:39 PM. CLINICAL HISTORY: Fall, hip and leg injury. COMPARISON: None. TECHNIQUE: 4 views. FINDINGS: Bones: Normal. No fractures or bone lesions. Joints: Normal. No effusion. No subluxations. Soft Tissues: No abnormal soft tissue calcifications. IMPRESSION: Negative right knee. [facility] Referring Provider Line: [phone] SITE ID: [id number]
[2017-04-16] MEDS ORDERED: MORPHINE 10 MG/ML VIAL IVP STA (18:53)
[2017-04-16] MEDS ORDERED: MORPHINE 10 MG/ML VIAL ONE (19:19)
[2017-04-16] MEDS ORDERED: oxyCODONE 5 MG TABLET PO PRN (20:54)
[2017-04-16] MEDS ORDERED: SODIUM CHLORIDE FLUSH 0.9% 10 ML SYRINGE IVP PRN (20:54)
[2017-04-16] MEDS ORDERED: MORPHINE 2 MG/ML SYRINGE IVP PRN (20:54)
[2017-04-16] MEDS ORDERED: ONDANSETRON 4 MG/2 ML VIAL IVP PRN (20:54)
[2017-04-16] MEDS ORDERED: TEMAZEPAM 15 MG CAPSULE PO PRN (20:54)
[2017-04-16] MEDS ORDERED: MIRTAZAPINE 15 MG TABLET PO SCH (21:00)
[2017-04-16] MEDS ORDERED: QUEtiapine 100 MG TABLET PO SCH (21:00)
[2017-04-16] MEDS ORDERED: GABAPENTIN 300 MG CAPSULE PO SCH (21:00)
[2017-04-16] MEDS: MORPHINE 2 MG/ML SYRINGE IVP PRN (23:23)
[2017-04-16] MEDS: PROPRANOLOL 10 MG TABLET PO SCH (23:25)
[2017-04-16] MEDS: SUCRALFATE 1 GM/10 ML UDC PO SCH (23:26)
[2017-04-16] MEDS: SODIUM CHLORIDE FLUSH 0.9% 10 ML SYRINGE IVP SCH (23:26)
[2017-04-17] MEDS: LORazepam 0.5 MG TABLET PO PRN ×3 (01:09→16:15)
[2017-04-17] MEDS: oxyCODONE 5 MG TABLET PO PRN ×3 (01:09→16:10)
--- NOTE | 2017-04-17 02:03 | HISTORY & PHYSICAL EXAMINATION ---
DATE OF ADMISSION: 04/16/2017 CHIEF COMPLAINT: Fall and right hip pain. HISTORY OF PRESENT ILLNESS: The patient is an unfortunate 52-year-old white male with complicated background. He is chronically ill and is well known at [facility], gets admitted here frequently as a result of alcohol abuse, substance abuse and various complications. He lives with his mother and he is disabled. 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 In addition, he does have a mental health disorder with anxiety , depression and has history of drug overdoses and history of suicidal ideation as well. His background is complicated by history of right hip arthritis. He underwent right hip partial arthroplasty about 3 years ago and a revision surgery about 6 weeks ago. He had the hip surgery on 03/03/2017. Subsequently, he was discharged to a snf facility where he stayed for rehabilitation for about 3 weeks. Subsequently, he was discharged to his home. The patient reported that since he has been at home he had been using a walker and a cane, but somewhat inconsistently. He described that he is not used to using assistive device to ambulate, therefore, sometimes he just does not use it. In addition, he has a cat and had some trouble when the cat goes near him, and he did trip on the cat and fell a couple of times. In particular, he reports that during the past 3 weeks he did fall several times. Prior to today; however, he did not suffer any injury. On 04/16/2017 around 1 a.m. he tried to go to the bathroom, at which time he did not use the walker or cane and he was holding on to a rail. He lost his balance and fell. Subsequently, he developed hip pain, had difficulty getting up from the floor. Finally, he was brought into the ER by his mother. The patient tells me that ambulance was actually called and they assisted the patient getting into his mother's car. Upon presentation to the ER the patient was found with a periprosthetic right hip fracture. The case was discussed with the orthopedic surgeon and it was felt too complicated of a procedure to be performed at [facility]. Subsequently, the [facility] was contacted and the ER physician, Dr. Hirsch, spoke with the transfer center and the case was coordinated with the covering orthopedic surgeon as well. From what I gather directly speaking with the transfer center for the [facility] is that the orthopedic surgeon, Dr. Botello, reviewed the imaging and stated that this patient should be accommodated at [facility], where they do complicated hip procedures. However, the policy is that they only accept patients between 7 a.m. and 5 p.m. and being outside of these hours a somewhat unusual situation happened which is that the patient was not accepted overnight. However, we were told that he will be accepted after 7 a.m. on 04/17/2017. ER workup was reviewed per electronic medical record. PAST MEDICAL HISTORY: 1. History of alcohol use and polysubstance abuse, history of opiate dependence. 2. Peripheral neuropathy, multifactorial, could be related to alcoholism, substance abuse, plus sequelae of Guillain-K[place]en[place] syndrome. 3. 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 3. Osteoarthritis status post right hip surgeries. 4. Dyslipidemia. 5. Mental health disorder, including anxiety, depression, suicidal ideation. 6. Chronic pain. 7. Hypertension. 8. History of rib fractures. 9. History of right scapular surgery. ALLERGIES: LISINOPRIL CAUSING ANGIOEDEMA. OUTPATIENT MEDICATIONS: 1. Fentanyl patch. 2. Hydroxyzine. 3. Sucralfate. 4. Seroquel. 5. Propranolol. 6. Oxycodone. 7. Multivitamin. 8. Mirtazapine. 9. Lorazepam. 10. Gabapentin. 11. Folic acid. 12. Bupropion. FAMILY HISTORY: Mother had coronary artery disease. Father had coronary artery disease and myocardial infarction as well. SOCIAL HISTORY: The patient has history of smoking. He quit in 2005. He denies current substance abuse. In fact he is upset when I mention any history of substance abuse and he tells me he never used any illicit substances. He also reports that he is not using alcohol and he denies he used it in the past. CODE STATUS: IN THE PAST MEDICAL RECORD FULL CODE STATUS WAS DOCUMENTED AND SUBSEQUENTLY IT WAS CHANGED TO DO NOT RESUSCITATE CODE STATUS. In DISCUSSING IT WITH THE PATIENT, HE REPORTS THAT HE WISHES TO BE FULL CODE STATUS. REVIEW OF SYSTEMS: Please see pertinent positive listed at history of present illness. I completed a 12-point review and other than hip pain, frequent falls the patient did not report additional complaint except for his chronic medical problems. In particular, there was no nausea, vomiting, diarrhea, abdominal pain. No fever, no dysuria, no loss of consciousness. PHYSICAL EXAMINATION: VITAL SIGNS: Temperature 36.2 Celsius, heart rate in the 70s, blood pressure 110 /80, oxygen saturation 98% on room air, respiration rate 18. GENERAL: The patient is a well-developed, chronically ill-appearing male. SKIN: Pallor, no jaundice. MUSCULOSKELETAL: Right hip deformity. In addition, chronic contractures of the toes and arthritic changes of the hands. CARDIOVASCULAR: S1, S2. No pathologic murmur. RESPIRATORY: Lungs clear to auscultation without wheezes or crackles. PSYCHIATRIC: Cooperative, no agitation, no lethargy. NEURO: Alert, oriented, nonfocal. ABDOMEN: Soft, benign, nontender. Bowel tones active. LYMPH: No lymphedema. ACTIVE ISSUES/DIAGNOSES: 1. Acute/uncontrolled right hip pain following periprosthetic hip fracture. 2. Mechanical fall with history of frequent falls following fdc discharge and rehabilitation post hip surgery. 3. Chronic medical problems as listed in history of present illness. No change. 4. Complicated hip fracture with periprosthetic fracture, which will require a higher level of care. 5. Hemodynamically stable. PLAN AND ORDERS: 1. This patient clearly needs inpatient admission as he suffered a hip fracture which will require operative repair. There is a peculiar situation here overnight at [facility], which is a critical access hospital. The patient cannot undergo a hip repair here as this would be a fairly complicated procedure and will require a higher level of care than could be provided at [facility]. Subsequently, the patient's case was discussed with the [facility] transfer center, and an unusual decision was made which is to accept the patient, but only for the next day therefore overnight he will need to be admitted here and accommodated until further transfer plan could be finalized and coordinated. 2. Plan will be to admit the patient as inpatient, control his pain, continue outpatient medications. Overnight we will allow a regular diet as the earliest time hip surgery could happen, would likely be more than 24 hours. 3. Deep venous thrombosis prophylaxis. 4. FULL CODE. Time spent with the care of this patient which included coordination of care with [facility] transfer center and coordination of the care with the ER included 80 minutes. JOB #: [id number] EXT JOB #:[id number] MARVIN
[2017-04-17] MEDS: SODIUM CHLORIDE FLUSH 0.9% 10 ML SYRINGE IVP SCH ×2 (06:15→12:31)
[2017-04-17] MEDS: SUCRALFATE 1 GM/10 ML UDC PO SCH ×3 (06:15→16:11)
[2017-04-17] MEDS: MORPHINE 2 MG/ML SYRINGE IVP PRN ×4 (06:23→16:10)
[2017-04-17] MEDS ORDERED: PANTOPRAZOLE 40 MG TABLET PO SCH (07:00)
[2017-04-17] MEDS ORDERED: MULTIVITAMIN TABLET PO SCH (08:00)
[2017-04-17] MEDS: PROPRANOLOL 10 MG TABLET PO SCH (08:53)
[2017-04-17] MEDS ORDERED: POLYETHYLENE GLYCOL 3350 17 GM PACKET PO SCH (09:00)
[2017-04-17] MEDS ORDERED: FOLIC ACID 1 MG TABLET PO SCH (09:00)
[2017-04-17] MEDS ORDERED: buPROPion SR 100 MG TABLET PO SCH (09:00)
[2017-04-17] MEDS ORDERED: ENOXAPARIN 40 MG/0.4 ML SYRINGE SUBQ SCH (09:00)
[2017-04-17] MEDS ORDERED: fentaNYL 25 MCG PATCH TOP SCH (09:00)
[2017-04-17 17:52] VITALS: BP 97/66
--- NOTE | 2017-04-17 19:12 | DISCHARGE SUMMARY ---
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 The patient has a history of a hip replacement done February 2017, and he then went to SNF for 3 weeks where he did improve with rehabilitation. He had been home for several weeks. He has had 3 falls at home. With this last fall he had severe pain and was brought to the emergency room and found to have a periprosthetic hip fracture on the right side. HOSPITAL COURSE AND DISCHARGE DIAGNOSES 1. Periprosthetic fracture. The complexity of care required for repair of this type of fracture is not available here. The batch plant supervisor reached out to [facility] and the reviewing orthopedist agreed that the patient would be best cared for at [facility]; however, that transfer was only available between 7 a.m. and 5 p.m. The patient was therefore housed here overnight for pain control. On the following day, I was able to make arrangements for that transfer and he was accepted by Dr. Gregory of Orthopedics. 2. Guillain-Bard syndrome with subsequent contractures. The patient does have difficulty with walking because of foot contractures. He is wearing prosthetics of the feet to prevent footdrop and help with ambulation. 3. Prior history of alcohol and polysubstance abuse. There were no issues regarding either of those problems at this admission. CONDITION AT DISCHARGE: Fair. PHYSICAL EXAMINATION HEENT: Unremarkable. NECK: Without JVD. CHEST: Clear. HEART: Sounds normal. ABDOMEN: Soft. EXTREMITIES: No edema. The right hip has firm area of tenderness, no redness and no skin changes. The feet have contractures. LABORATORY AND IMAGING: Reviewed and described above. FOLLOWUP: This will be determined after treatment at [facility] and surgery to be done there. CODE STATUS: FULL CODE. TIME REQUIRED FOR THIS DISCHARGE: Twenty-five minutes. JOB #: [id number] EXT JOB #:[id number] MARVIN
[2017-04-17] MEDS ORDERED: hydrOXYzine PAMOATE 25 MG CAPSULE PO SCH (21:00)
== END 2017-04-17 18:10 | disposition short-term general hospital (02) | DRG 559 ==
LOC: ED 12:57 → MS3 20:54
PROVIDERS: ADMIT Internal Medicine; ATTEND Internal Medicine
DX: M97.01XA Periprosthetic fracture around internal prosthetic right hip joint, initial encounter (principal); S72.21XA Displaced subtrochanteric fracture of right femur, initial encounter for closed fracture; W18.39XA Other fall on same level, initial encounter; G65.0 Sequelae of Guillain-Barre syndrome; M24.576 Contracture, unspecified foot; F10.11 Alcohol abuse, in remission; F11.11 Opioid abuse, in remission; R62.50 Unspecified lack of expected normal physiological development in childhood; G62.89 Other specified polyneuropathies; F32.9 Major depressive disorder, single episode, unspecified; F41.9 Anxiety disorder, unspecified; Z91.5 Personal history of self-harm; M19.90 Unspecified osteoarthritis, unspecified site; E78.5 Hyperlipidemia, unspecified; G89.29 Other chronic pain; I10 Essential (primary) hypertension; Z91.81 History of falling; Y93.E8 Activity, other personal hygiene; Y92.002 Bathroom of unspecified non-institutional (private) residence as the place of occurrence of the external cause; Z79.891 Long term (current) use of opiate analgesic; Z79.899 Other long term (current) drug therapy; Z87.891 Personal history of nicotine dependence
CPT/HCPCS: 36415; 80053; 80307; 80320; 82550; 83690; 85025; 96372; 96374; 99283; 99284; 99285

== ENCOUNTER 2017-05-10 15:07 | Outpatient (CLI) | payer MEDICAID | END 2017-05-10 15:08 | disposition critical access hospital (66) | LOC: EMS 15:07 | PROVIDERS: ATTEND Surgery | DX: R41.82 Altered mental status, unspecified (principal) | CPT/HCPCS: A0425; A0429 ==

== ENCOUNTER 2017-05-10 15:26 | Emergency (ER) | payer MEDICAID ==
--- NOTE | 2017-05-10 15:57 | ED Physician Documentation ---
PD HPI ALTERED MENTAL STATUS - Stated complaint Stated Complaint: AMS - Chief complaint Chief Complaint: Neuro - History obtained from History obtained from: Patient, EMS - History of Present Illness Timing - onset: Today Timing - duration: Hours Timing - details: Gradual onset (unsure onset - family had been out and his mother returned and found him sleepy/unrousable. Called 911.) Quality / character: Less responsive, Agitated Associated symptoms: No: Fever, Headache Contributing factors: Recent med change (had some pain meds added s/p hip surgery). No: Anticoagulated [place] status: 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, Ambulatory (with ataxia/ weak legs usually), Walker Treatment [employer] [place]: Accucheck Recently seen: Surgery (hip surgery recently, having more pain post-op.) Review of Systems Constitutional: denies: Fever, Chills Nose: denies: Rhinorrhea / runny nose, Congestion Throat: denies: Sore throat Cardiac: denies: Chest pain / pressure Respiratory: denies: Dyspnea, Cough GI: denies: Abdominal Pain, Nausea, Vomiting, Diarrhea : denies: Dysuria, Frequency Skin: denies: Rash Neurologic: reports: Generalized weakness. denies: Focal weakness, Numbness Psychiatric: denies: Suicidal Immunocompromised: denies: Immunocompromised PD PAST MEDICAL HISTORY - Past Medical History Cardiovascular: Hypertension Respiratory: Sleep apnea Neuro: Peripheral neuropathy, Tremors, Other Endocrine/Autoimmune: None GI: GERD, Pancreatitis : Incontinence HEENT: None Psych: Depression, Anxiety Musculoskeletal: Osteoarthritis Derm: None - Past Surgical History Past Surgical History: Yes Ortho: Hip replacement, Arthroscopic surgery HEENT: Tracheostomy - Present Medications Home Medications: Ambulatory Orders Medication Instructions Recorded Confirmed Bupropion HCl [Bupropion HCl Sr] 200 mg PO DAILY 05/23/16 04/17/17 Gabapentin 300 mg PO QPM 05/23/16 04/17/17 Propranolol [Inderal] 60 mg PO BID 05/23/16 04/16/17 hydrOXYzine pamoate [Hydroxyzine 100 - 150 mg PO QPM 05/23/16 04/17/17 Pamoate] Mirtazapine 7.5 mg PO QPM 08/28/16 04/17/17 Quetiapine Fumarate [Seroquel] 800 mg PO QPM 08/28/16 04/17/17 Folic Acid 1 mg PO DAILY #30 tablet 08/30/16 04/17/17 Multivitamin [Theragran] 1 tab PO DAILYWM #30 tablet 08/30/16 04/16/17 Sucralfate 1 gm PO ACHS #60 tablet 09/11/16 04/16/17 Lorazepam [Ativan] 1 mg PO TID PRN #7 tablet 09/16/16 04/17/17 Omeprazole 20 mg PO DAILY 04/17/17 04/17/17 Oxycodone HCl/Acetaminophen 1 - 3 tab PO Q4H PRN MDD 9 04/17/17 04/17/17 [Oxycodone-Acetaminophen 5-325] Thiamine [Vitamin B-1] 100 mg PO DAILY 04/17/17 04/17/17 fentaNYL [Fentanyl 25mcg patch] 1 patch TOP Q72H 04/17/17 04/17/17 - Allergies Allergies/Adverse Reactions: Allergies Allergy/AdvReac Type Severity Reaction Status Date / Time lisinopril Allergy Mild Edema Verified 05/10/17 15:46 - Social History Does the pt smoke?: No Smoking Status: Former smoker Does the pt drink ETOH?: Yes Does the pt have substance abuse?: Yes - Immunizations Immunizations are current?: Yes Immunizations: Other immun not current - POLST Patient has POLST: No POLST Status: DNR (pt clearly state to me it is DNR, Pt's mother at the bedside did not say no.) PD ED PE NORMAL - Vitals Vital signs reviewed: Yes - General General: No acute distress, Well developed/nourished, Other (sleepy but rousable to voice and light touch. ) - HEENT HEENT: Atraumatic, Moist mucous membranes, Pharynx benign - Neck Neck: Supple, no meningeal sign, No adenopathy - Cardiac Cardiac: RRR, No murmur - Respiratory Respiratory: Clear bilaterally - Abdomen Abdomen: Soft, Non tender - Derm Derm: Normal color, Warm and dry - Extremities Extremities: No edema, No calf tenderness / cord, Other (right lateral hip with healing surgical wound; no signs of infection. ) - Neuro Neuro: 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, No motor deficit, Normal speech, Other (gait with some antalgia.) Eye Opening: Spontaneous Motor: Obeys Commands Verbal: Oriented GCS Score: 15 - Psych Psych: Normal mood Results - Vitals Vitals: Vital Signs - 24 hr 05/10/17 05/10/17 05/10/17 15:36 16:08 17:29 Temperature 36.6 C Heart Rate 73 76 88 Respiratory 12 18 16 Rate Blood Pressure 124/101 H 132/69 H O2 Saturation 100 96 95 05/10/17 17:40 Temperature 36.3 C L Heart Rate 104 H Respiratory 16 Rate Blood Pressure 110/80 O2 Saturation 100 Oxygen O2 Source Room air - EKG (time done) 15:35 Rate: Rate (enter#) (74) Rhythm: NSR [place]: Normal Intervals: Normal ND QRS: Normal Ischemia: Normal ST segments. No: ST elevation c/w ischemia, ST depression - Labs Labs: Laboratory Tests 05/10/17 05/10/17 17:30 17:30 WBC 5.4 RBC 3.26 L Hgb 9.2 L Hct 28.8 L MCV 88.2 MCH 28.2 MCHC 32.0 RDW 16.0 H Plt Count 538 H MPV 6.7 L Neut # 3.3 Lymph # 1.3 L [place] # 0.6 Eos # 0.2 Baso # 0.0 Absolute Nucleated RBC 0.00 Nucleated RBC % 0.0 Sodium 142 Potassium 3.7 Chloride 105 Carbon Dioxide 25 Anion Gap 12.0 BUN 16 Creatinine 0.7 Estimated GFR (MDRD) 118 Glucose 117 H Calcium 9.3 Total Bilirubin 0.2 AST 16 ALT 11 Alkaline Phosphatase 101 Total Protein 6.8 Albumin 3.6 Globulin 3.2 Albumin/Globulin Ratio 1.1 Lipase 15 L Salicylates < 6.0 Acetaminophen < 10 L Ethyl Alcohol < 5.0 - Rads (name of study) head CT Radiology: Prelim report reviewed (normal) PD MEDICAL DECISION MAKING - ED course Complexity details: reviewed results, re-evaluated patient (more awake and normal/ baseline for him. Ambulatory to bathroom and ate some. Presume med overeffect.), d/w patient, d/w family Departure - Departure Disposition: 01 Home, Self Care Clinical Impression: Altered mental status Qualifiers: Altered mental status type: stupor Qualified Code(s): R40.1 - Stupor Condition: Stable Record reviewed to determine appropriate education?: Yes Instructions: ED Altered Loc Comments: You have improved here and seemed just very sleepy. I think it was a medication side effect of likely pain medication combined with your other ones. Perhaps decrease your oxycodone pain medicine in the short-term. Return if further problems develop. Discharge Date/Time: 05/10/17 20:23
[2017-05-10] MEDS ORDERED: SODIUM CHLORIDE 0.9% 1,000 ML IV ONE (16:15)
--- NOTE | 2017-05-10 17:05 | CT Preliminary Report ---
Exam: CT HEAD W/O IMPRESSION: 1. No acute intracranial abnormality is identified. [facility] SITE ID: [id number]
--- NOTE | 2017-05-10 17:08 | CT Report ---
EXAM: CT HEAD EXAM DATE: 05/10/2017 04:32 PM. CLINICAL HISTORY: Altered mentation. COMPARISON: 04/02/2017. 04/03/2017. 11/28/2012. TECHNIQUE: Multiaxial CT images were obtained from the foramen magnum to the vertex. Reformats: Coron al. IV contrast: None. In accordance with CT protocol optimization, one or more of the following dose reduction techniques w ere utilized for this exam: automated exposure control, adjustment of mA and/or KV based on patient s ize, or use of iterative reconstructive technique. FINDINGS: Parenchyma: No intraparenchymal hemorrhage. No evidence of mass, midline shift, or CT findings of inf arction. Muhammad-white differentiation is distinct. Extraaxial Spaces: Normal for age. No subdural or epidural collections identified. Ventricles: Normal in size and position. Sinuses and Orbits: Imaged paranasal sinuses, orbits, and mastoids show no significant abnormality. Bones: No evidence of fracture or calvarial defect. Other: None. IMPRESSION: 1. No acute intracranial abnormality is identified. [facility] Referring Provider Line: [phone] SITE ID: [id number]
[2017-05-10 17:38] LABS: BASOPHILS % (AUTO) 0.5 %; EOSINOPHILS # (AUTO) 0.2 10^3/uL (0.0-0.7); EOSINOPHILS % (AUTO) 3.4 %; HCT - HEMATOCRIT 28.8 % (42.0-52.0); HGB - HEMOGLOBIN 9.2 g/dL (14.0-18.0); LYMPHOCYTES # (AUTO) 1.3 10^3/uL (1.5-3.5); LYMPHOCYTES % (AUTO) 24.2 %; MEAN CORPUSCULAR HEMOGLOBIN 28.2 pg (27.0-31.0); MEAN CORPUSCULAR VOLUME 88.2 fL (80.0-94.0); MEAN PLATELET VOLUME 6.7 fL (7.4-11.4); MONOCYTES # (AUTO) 0.6 10^3/uL (0.0-1.0); MONOCYTES % (AUTO) 11.4 %; NEUTROPHILS # (AUTO) 3.3 10^3/uL (1.5-6.6); NEUTROPHILS % (AUTO) 60.5 %; RED BLOOD COUNT 3.26 10^6/uL (4.70-6.10); UNCORRECTED WHITE BLOOD COUNT 5.4 x10^3/uL; WHITE BLOOD COUNT 5.4 x10^3/uL (4.8-10.8)
[2017-05-10 17:41] VITALS: BP 110/80
[2017-05-10 17:51] LABS: ALBUMIN/GLOBULIN RATIO 1.1 (1.0-2.2); BILIRUBIN,TOTAL 0.2 mg/dL (0.2-1.0); BUN - BLOOD UREA NITROGEN 16 mg/dL (6-20); CALCIUM 9.3 mg/dL (8.5-10.3); CARBON DIOXIDE - CO2 25 mmol/L (21-32); CHLORIDE 105 mmol/L (101-111); CREATININE 0.7 mg/dL (0.6-1.2); GFR - MDRD 118 (>89); GLUCOSE 117 mg/dL (70-100); LIPASE 15 U/L (22-51); POTASSIUM 3.7 mmol/L (3.5-5.0); SALICYLATE < 6.0 mg/dL; SODIUM 142 mmol/L (135-145); TOTAL PROTEIN 6.8 g/dL (6.7-8.2)
[2017-05-10 17:57] LABS: ACETAMINOPHEN < 10 ug/mL (10-30)
[2017-05-10] MEDS ORDERED: ACETAMINOPHEN 325 MG TABLET PO STA (18:50)
[2017-05-10] MEDS ORDERED: KETOROLAC 60 MG/2 ML VIAL IVP STA (18:50)
[2017-05-10] MEDS ORDERED: ACETAMINOPHEN 325 MG TABLET PO ONE (19:18)
[2017-05-10] MEDS ORDERED: KETOROLAC 30 MG/ML VIAL ONE (19:19)
== END 2017-05-10 20:23 | disposition home or self-care (01) ==
LOC: EDUNIT# → EDBD → ED 15:26
DX: R40.1 Stupor (principal); I10 Essential (primary) hypertension; G62.9 Polyneuropathy, unspecified; K21.9 Gastro-esophageal reflux disease without esophagitis; M19.90 Unspecified osteoarthritis, unspecified site; Z86.39 Personal history of other endocrine, nutritional and metabolic disease; Z87.891 Personal history of nicotine dependence
CPT/HCPCS: 36415; 70450; 80053; 80307; 80320; 80329; 83690; 85025; 93005; 96361; 96374; 99284; A9270

== ENCOUNTER 2017-05-29 17:29 | Emergency (ER) | payer MEDICAID ==
[2017-05-29] MEDS ORDERED: LORazepam 0.5 MG TABLET PO STA (18:32)
--- NOTE | 2017-05-29 18:32 | ED Physician Documentation ---
History of Present Illness - Stated complaint Stated Complaint: MED REFILL - Chief complaint Chief Complaint: Ext Problem - History obtained from History obtained from: Patient, Family (Mother) - History of Present Illness Timing: Today - Additonal information Additional information: The patient is a 52-year-old male who resents complaining of "my anxiety." He has a history of anxiety disorder for which he is prescribed lorazepam by his psychiatrist. He normally takes lorazepam 3 times daily, but ran out today. Review of his prescription bottle reveals that 24 days ago he was prescribed 90 tablets, which should have lasted for 30 days. In addition the patient has a history of alcoholism, and reports he has not had any alcohol for the past 24 hours. He is one month status post ORIF of right hip fracture with screws, after falling and fracturing his hip. Review of Systems Constitutional: denies: Fever Ears: denies: Tinnitus/ringing Nose: denies: Congestion Throat: denies: Sore throat Cardiac: denies: Chest pain / pressure Respiratory: denies: Dyspnea, Cough GI: denies: Abdominal Pain, Nausea, Vomiting : denies: Dysuria Skin: denies: Rash Musculoskeletal: denies: Back pain, Extremity swelling Neurologic: reports: Other (Mentally dull.). denies: Focal weakness, Headache Psychiatric: reports: Anxiety PD PAST MEDICAL HISTORY - Past Medical History Past Medical History: Yes Cardiovascular: Hypertension Respiratory: Sleep apnea Neuro: Peripheral neuropathy, Tremors, Other Endocrine/Autoimmune: None GI: GERD, Pancreatitis : Incontinence HEENT: None Psych: Depression, Anxiety Musculoskeletal: Osteoarthritis Derm: None - Past Surgical History Past Surgical History: Yes Ortho: Hip replacement, Arthroscopic surgery HEENT: Tracheostomy - Present Medications Home Medications: Ambulatory Orders Medication Instructions Recorded Confirmed Bupropion HCl [Bupropion HCl Sr] 200 mg PO DAILY 05/23/16 04/17/17 Gabapentin 300 mg PO QPM 05/23/16 04/17/17 Propranolol [Inderal] 60 mg PO BID 05/23/16 04/16/17 hydrOXYzine pamoate [Hydroxyzine 100 - 150 mg PO QPM 05/23/16 04/17/17 Pamoate] Mirtazapine 7.5 mg PO QPM 08/28/16 04/17/17 Quetiapine Fumarate [Seroquel] 800 mg PO QPM 08/28/16 04/17/17 Folic Acid 1 mg PO DAILY #30 tablet 08/30/16 04/17/17 Multivitamin [Theragran] 1 tab PO DAILYWM #30 tablet 08/30/16 04/16/17 Sucralfate 1 gm PO ACHS #60 tablet 09/11/16 04/16/17 Lorazepam [Ativan] 1 mg PO TID PRN #7 tablet 09/16/16 04/17/17 Omeprazole 20 mg PO DAILY 04/17/17 04/17/17 Oxycodone HCl/Acetaminophen 1 - 3 tab PO Q4H PRN MDD 9 04/17/17 04/17/17 [Oxycodone-Acetaminophen 5-325] Thiamine [Vitamin B-1] 100 mg PO DAILY 04/17/17 04/17/17 fentaNYL [Fentanyl 25mcg patch] 1 patch TOP Q72H 04/17/17 04/17/17 LORazepam [Lorazepam] 1 mg PO TID #20 tablet 05/29/17 - Allergies Allergies/Adverse Reactions: Allergies Allergy/AdvReac Type Severity Reaction Status Date / Time lisinopril Allergy Mild Edema Verified 05/10/17 15:46 - Social History Does the pt smoke?: No Smoking Status: Never smoker Does the pt drink ETOH?: Yes Does the pt have substance abuse?: Yes - Immunizations Immunizations are current?: Yes Immunizations: Other immun not current - POLST Patient has POLST: No POLST Status: DNR (pt clearly state to me it is DNR, Pt's mother at the bedside did not say no.) PD ED PE NORMAL - Vitals Vital signs reviewed: Yes (Borderline hypertension.) - General General: 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, Well developed/nourished, Other (Ambulated into the emergency department without antalgic gait on the right.) - HEENT HEENT: Atraumatic, EOMI, Pharynx benign - Neck Neck: Supple, no meningeal sign, No adenopathy, No JVD - Cardiac Cardiac: RRR, No murmur - Respiratory Respiratory: No respiratory distress, Clear bilaterally - Abdomen Abdomen: Soft, Non tender - Back Back: No CVA TTP, No spinal TTP - Derm Derm: No rash - Extremities Extremities: No edema, No calf tenderness / cord, Other (Healing surgical wound right hip.) - Neuro Neuro: 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, No motor deficit, Other (Slight tremulousness. Mental confusion, which is vague and nonspecific, consistent with chronic alcoholism.) Results - Vitals Vitals: Oxygen O2 Source Room air PD MEDICAL DECISION MAKING - ED course Complexity details: reviewed old records, re-evaluated patient, considered differential, d/w patient, d/w family ED course: The patient's presentation is most consistent with acute anxiety disorder, exacerbated by withdrawal from benzodiazepine, which he has recently been taking in higher quantity then his normally prescribed 3 times daily. His mother, with whom he resides, is present in the emergency department and helped provide history, as well as some reassurance of future medical compliance. His presentation does not suggest a need for inpatient treatment at this time. Treatment in the emergency department included administration of lorazepam 1 mg orally. He is being discharged with prescription for lorazepam 1 mg, 3 times daily, one week's supply. I discussed with him and his mother the importance of refraining from alcohol, outpatient follow-up, as well as potentially worrisome signs or symptoms that should prompt reevaluation is needed emergency department. Departure - Departure Disposition: 01 Home, Self Care Clinical Impression: Anxiety, Alcoholism Condition: Stable Instructions: ED Withdrawal Benzodiazepine Follow-Up: Saeed Sahni MD [Physician No Access] - Prescriptions: LORazepam [Lorazepam] 1 mg PO TID #20 tablet Comments: Refrain from alcohol. You can use lorazepam 3 times daily as prescribed. Follow up with your psychiatrist next week as scheduled. Return to the emergency department if you develop increasing anxiety, persistent vomiting, or otherwise worsening symptoms. Discharge Date/Time: 05/29/17 18:52
[2017-05-29 18:58] VITALS: BP 129/92
== END 2017-05-29 18:52 | disposition home or self-care (01) ==
LOC: ED 17:29
DX: Z76.0 Encounter for issue of repeat prescription (principal); F41.9 Anxiety disorder, unspecified; F10.20 Alcohol dependence, uncomplicated; Z66 Do not resuscitate; I10 Essential (primary) hypertension; G62.9 Polyneuropathy, unspecified; K21.9 Gastro-esophageal reflux disease without esophagitis; M19.90 Unspecified osteoarthritis, unspecified site
CPT/HCPCS: 99283; A9270

== ENCOUNTER 2017-06-15 11:55 | Outpatient (CLI) | payer MEDICAID | END 2017-06-15 11:56 | disposition critical access hospital (66) | LOC: EMS 11:55 | PROVIDERS: ATTEND Surgery | DX: R40.20 Unspecified coma (principal) | CPT/HCPCS: A0425; A0427 ==

== ENCOUNTER 2017-08-11 10:27 | Emergency (ER) | payer MEDICARE, MEDICAID ==
[2017-08-11] MEDS ORDERED: LORazepam 2 MG/ML VIAL ONE (11:24)
[2017-08-11] MEDS ORDERED: THIAMINE INJ 100 MG, FOLIC ACID INJ 1 MG in SODIUM CHLORIDE 0.9% 100ML 100 ML IV STA (11:25)
[2017-08-11] MEDS ORDERED: LORazepam 2 MG/ML VIAL IM STA (11:25)
[2017-08-11] MEDS ORDERED: MULTIVITAMIN 10 ML in SODIUM CHLORIDE 0.9% 1,000 ML IV STA (11:25)
[2017-08-11] MEDS ORDERED: MAGNESIUM SULFATE 2 GRAM 2 GM/50 ML BAG IV STA (11:25)
--- NOTE | 2017-08-11 11:27 | ED Physician Documentation ---
History of Present Illness - Stated complaint Stated Complaint: MEDICATION REFILL - Chief complaint Chief Complaint: General - History obtained from History obtained from: Patient - History of Present Illness Timing: How many days ago (3) - Additonal information Additional information: 52-year-old male is been on Ativan 1 mg 3 times a day has run out about 3 days ago. He missed 2 appointments at [facility] and he has been kicked out of the clinic there. He went to the clinic at [facility] today and signed in to be seen again and was told to come to the emergency department to get prescription as it would not be able to provide it today. He got into the emergency department and promptly had a seizure. Seizure was witnessed and he was administered 2 mg of Ativan IM. Review of Systems Constitutional: reports: Chills, Fatigue, Sweats. denies: Fever Eyes: denies: Decreased vision Ears: denies: Ear pain Nose: reports: Rhinorrhea / runny nose, Congestion Throat: denies: Sore throat Cardiac: reports: Palpitations. denies: Chest pain / pressure Respiratory: reports: Cough. denies: Dyspnea GI: reports: Abdominal Pain, Nausea. denies: Vomiting : denies: Dysuria, Frequency Skin: denies: Rash Musculoskeletal: reports: Back pain, Extremity pain. denies: Neck pain Neurologic: denies: Generalized weakness, Focal weakness, Numbness PD PAST MEDICAL HISTORY - Past Medical History Past Medical History: Yes Cardiovascular: Hypertension Respiratory: Sleep apnea Neuro: Peripheral neuropathy, Tremors, Other Endocrine/Autoimmune: None GI: GERD, Pancreatitis : Incontinence HEENT: None Psych: Depression, Anxiety Musculoskeletal: Osteoarthritis Derm: None - Past Surgical History Past Surgical History: Yes Ortho: Hip replacement, Arthroscopic surgery HEENT: Tracheostomy - Present Medications Home Medications: Ambulatory Orders Medication Instructions Recorded Confirmed Gabapentin 300 mg PO QPM 05/23/16 06/15/17 Propranolol [Inderal] 60 mg PO BID 05/23/16 06/15/17 hydrOXYzine pamoate [Hydroxyzine 100 mg PO QPM 05/23/16 06/15/17 Pamoate] Mirtazapine 7.5 mg PO QPM 08/28/16 06/15/17 Quetiapine Fumarate [Seroquel] 800 mg PO QPM 08/28/16 06/15/17 Folic Acid 1 mg PO DAILY #30 tablet 08/30/16 06/15/17 Multivitamin [Theragran] 1 tab PO DAILYWM #30 tablet 08/30/16 06/15/17 Acetaminophen [Tylenol Extra 1,000 mg PO Q8H PRN 06/15/17 06/15/17 Strength] Bupropion HCl [Bupropion HCl Sr] 200 mg PO DAILY 06/15/17 06/15/17 Docusate Sodium 250Mg Capsule 250 mg PO BID PRN 06/15/17 06/15/17 [Colace 250Mg Capsule] HYDROmorphone [Dilaudid] 2 - 4 mg PO Q4H 06/15/17 06/15/17 LORazepam [Lorazepam] 1 mg PO TID PRN 06/15/17 06/15/17 Omeprazole 20 mg PO QDAC 06/15/17 06/15/17 Ondansetron HCl [Zofran] 4 mg PO Q8H PRN 06/15/17 06/15/17 hydrOXYzine pamoate [Hydroxyzine 50 mg PO 0900,1600 06/15/17 06/15/17 Pamoate] Azithromycin [Zithromax] 250 mg PO DAILY #6 tablet 08/11/17 Lorazepam [Ativan] 1 mg PO TID #30 tablet 08/11/17 - Allergies Allergies/Adverse Reactions: Allergies Allergy/AdvReac Type Severity Reaction Status Date / Time lisinopril Allergy Mild Edema Verified 08/11/17 10:34 - Social History Does the pt smoke?: No Smoking Status: Never smoker Does the pt drink ETOH?: Yes Does the pt have substance abuse?: Yes - Immunizations Immunizations are current?: Yes Immunizations: Other immun not current - POLST Patient has POLST: No POLST Status: DNR (pt clearly state to me it is DNR, Pt's mother at the bedside did not say no.) PD ED PE NORMAL - Vitals Vital signs reviewed: Yes (hypertensive ) - General General: 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, Well developed/nourished, Other (The patient is post ictal and has a lot of nystagmus. ) - HEENT HEENT: Atraumatic, PERRL, EOMI, Other (dry mucous membranes and left TM is inflammed. 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, No motor deficit, No sensory deficit, Normal speech Eye Opening: Spontaneous Motor: Obeys Commands Verbal: Oriented GCS Score: 15 - Psych Psych: Normal mood, Normal affect Results - Vitals Vitals: Vital Signs - 24 hr 08/11/17 08/11/17 10:31 12:53 Temperature 36.5 C Heart Rate 66 74 Respiratory 18 18 Rate Blood Pressure 152/104 H 134/98 H O2 Saturation 99 95 Oxygen O2 Source Room air - Labs Labs: Laboratory Tests 08/11/17 08/11/17 08/11/17 11:27 11:27 12:20 WBC 7.8 RBC 4.34 L Hgb 13.8 L Hct 41.9 L MCV 96.6 H MCH 31.9 H MCHC 33.0 RDW 17.3 H Plt Count 230 MPV 7.4 Neut # 3.7 Lymph # 2.7 [place]go # 1.2 H Eos # 0.2 Baso # 0.1 Absolute Nucleated RBC 0.00 Nucleated RBC % 0.1 Sodium 141 Potassium 3.9 Chloride 101 Carbon Dioxide 20 L Anion Gap 20.0 H BUN 21 H Creatinine 0.9 Estimated GFR (MDRD) 88 L Glucose 134 H Calcium 9.6 Total Bilirubin 1.0 AST 64 H ALT < 10 L Alkaline Phosphatase 108 Total Protein 7.9 Albumin 4.4 Globulin 3.5 Albumin/Globulin Ratio 1.3 Lipase 40 Urine Color YELLOW Urine Clarity CLEAR Urine pH 6.5 Ur Specific [place] >=1.030 H Urine Protein 30 H Urine Glucose (UA) NEGATIVE Urine Ketones NEGATIVE Urine Occult Blood NEGATIVE Urine Nitrite NEGATIVE Urine Bilirubin NEGATIVE Urine Urobilinogen 0.2 (NORMAL) Ur Leukocyte Esterase NEGATIVE Urine RBC 0-5 Urine WBC 6-10 H Ur Squamous Epith Cells RARE Squamous Urine Bacteria Few Ur Microscopic Review INDICATED Urine Culture Comments INDICATED Urine Opiates Screen NEGATIVE Ur Oxycodone Screen NEGATIVE Urine Methadone Screen NEGATIVE Ur Propoxyphene Screen NEGATIVE Ur Barbiturates Screen NEGATIVE Ur Tricyclics Screen NEGATIVE Ur Phencyclidine Scrn NEGATIVE Ur Amphetamine Screen NEGATIVE U Methamphetamines Scrn NEGATIVE U Benzodiazepines Scrn POSITIVE H Urine Cocaine Screen NEGATIVE U Cannabinoids Screen NEGATIVE Ethyl Alcohol < 5.0 PD MEDICAL DECISION MAKING - ED course Complexity details: reviewed old records, reviewed results, re-evaluated patient , considered differential, d/w patient, d/w family ED course: 52-year-old male with history of alcoholism and dependence on Ativan has run out of his Ativan he is not able to continue to be seen at the prior clinic he was being seen at and today he was on his way to reestablish care. In preparation for this he did stop drinking about 3 days ago and about the time that he ran out of Ativan. Here in the emergency department shortly after arrival he did have a grand mal seizure and was administered Ativan 2 mg IM. He was subsequently given a banana bag intravenously. He has OM on exam and a cough and he is treated for this as well with decadron and we will put him on a course of antibiotic. Departure - Departure Disposition: 01 Home, Self Care Clinical Impression: Benzodiazepine withdrawal with complication Seizure due to alcohol withdrawal Qualifiers: Complication of substance-induced condition: with unspecified complication Qualified Code(s): F10.239 - Alcohol dependence with withdrawal, unspecified; R56.9 - Unspecified convulsions; R56.9 - Unspecified convulsions; R56.9 - Unspecified convulsions; R56.9 - Unspecified convulsions Condition: Stable Instructions: ED Seizure Alcohol Withdrawal, ED Withdrawal Alcohol, ED Withdrawal Benzodiazepine, ED Otitis Media Acute Adult Follow-Up: Chase uQick MD [Primary Care Provider] - Prescriptions: Azithromycin [Zithromax] 250 mg PO DAILY #6 tablet Lorazepam [Ativan] 1 mg PO TID #30 tablet
[2017-08-11 11:39] LABS: BASOPHILS # (AUTO) 0.1 10^3/uL (0.0-0.1); BASOPHILS % (AUTO) 0.7 %; EOSINOPHILS # (AUTO) 0.2 10^3/uL (0.0-0.7); EOSINOPHILS % (AUTO) 2.3 %; HGB - HEMOGLOBIN 13.8 g/dL (14.0-18.0); LYMPHOCYTES # (AUTO) 2.7 10^3/uL (1.5-3.5); MEAN CORPUSCULAR HEMOGLOBIN 31.9 pg (27.0-31.0); MEAN CORPUSCULAR VOLUME 96.6 fL (80.0-94.0); MEAN PLATELET VOLUME 7.4 fL (7.4-11.4); MONOCYTES # (AUTO) 1.2 10^3/uL (0.0-1.0); MONOCYTES % (AUTO) 15.3 %; NEUTROPHILS # (AUTO) 3.7 10^3/uL (1.5-6.6); NEUTROPHILS % (AUTO) 47.7 %; PLT - PLATELET COUNT 230 10^3/uL (130-450); RED BLOOD COUNT 4.34 10^6/uL (4.70-6.10); RED CELL DISTRIBUTION WIDTH 17.3 % (12.0-15.0); WHITE BLOOD COUNT 7.8 x10^3/uL (4.8-10.8)
[2017-08-11 11:58] LABS: ALBUMIN 4.4 g/dL (3.2-5.5); ALBUMIN/GLOBULIN RATIO 1.3 (1.0-2.2); ALKALINE PHOSPHATASE 108 IU/L (42-121); AST ASPARTATE AMINOTRANSFERASE 64 IU/L (10-42); BUN - BLOOD UREA NITROGEN 21 mg/dL (6-20); CALCIUM 9.6 mg/dL (8.5-10.3); CARBON DIOXIDE - CO2 20 mmol/L (21-32); CHLORIDE 101 mmol/L (101-111); CREATININE 0.9 mg/dL (0.6-1.2); GFR - MDRD 88 (>89); GLUCOSE 134 mg/dL (70-100); LIPASE 40 U/L (22-51); SODIUM 141 mmol/L (135-145); TOTAL PROTEIN 7.9 g/dL (6.7-8.2)
[2017-08-11] MEDS ORDERED: THIAMINE INJ 100 MG, FOLIC ACID INJ 1 MG in SODIUM CHLORIDE 0.9% 100ML 100 ML IV SCH (12:05)
[2017-08-11 12:30] LABS: MUDS CUTOFF CONCENTRATIONS CUTOFF CONC BELOW:
[2017-08-11 12:32] LABS: BILIRUBIN,URINE NEGATIVE (NEGATIVE); GLUCOSE, URINE (UA) NEGATIVE (NEGATIVE); KETONES,URINE (UA) NEGATIVE (NEGATIVE); LEUKOCYTE ESTERASE, URINE NEGATIVE (NEGATIVE); NITRITE,URINE NEGATIVE (NEGATIVE); OCCULT BLOOD,URINE NEGATIVE (NEGATIVE); PH,URINE 6.5 PH (5.0-7.5); PROTEIN,URINE 30 mg/dL (NEGATIVE); UROBILINOGEN,URINE 0.2 (NORMAL) E.U./dL (NORMAL)
[2017-08-11 12:38] LABS: CLARITY,URINE CLEAR (CLEAR)
[2017-08-11 12:43] LABS: AMPHETAMINE SCREEN,URINE NEGATIVE (NEGATIVE); BACTERIA,URINE Few /HPF (None Seen); BENZODIAZEPINES SCREEN, URINE POSITIVE (NEGATIVE); COCAINE SCREEN URINE NEGATIVE (NEGATIVE); METHADONE SCREEN, URINE NEGATIVE (NEGATIVE); METHAMPHETAMINES SCREEN, URINE NEGATIVE (NEGATIVE); OPIATE SCREEN, URINE NEGATIVE (NEGATIVE); OXYCODONE SCREEN, URINE NEGATIVE (NEGATIVE); PROPOXYPHENE SCREEN, URINE NEGATIVE (NEGATIVE); RBC,URINE 0-5 /HPF (0-5); SQUAMOUS EPITHELIAL CELL,UR RARE Squamous (<= Few); TRICYCLIC ANTIDEPRESSANT,URINE NEGATIVE (NEGATIVE)
[2017-08-11 14:17] VITALS: BP 128/88
[2017-08-11 15:54] LABS: ALT ALANINE AMINOTRANSFERASE 36 IU/L (10-60)
== END 2017-08-11 14:15 | disposition home or self-care (01) ==
LOC: ED 10:27
DX: F13.239 Sedative, hypnotic or anxiolytic dependence with withdrawal, unspecified (principal); F10.239 Alcohol dependence with withdrawal, unspecified; R56.9 Unspecified convulsions; H66.92 Otitis media, unspecified, left ear; R05 Cough; I10 Essential (primary) hypertension
CPT/HCPCS: 36415; 80053; 80306; 81001; 83690; 85025; 87086; 96365; 96367; 96372; 96375; 99283; 99284; G0480; J2060; J3411; 80320; 81003

== ENCOUNTER 2017-08-21 09:35 | Emergency (ER) | payer MEDICARE, MEDICAID ==
[2017-08-21] MEDS ORDERED: LORazepam 2 MG/ML VIAL IM STA (11:09)
--- NOTE | 2017-08-21 11:12 | ED Physician Documentation ---
History of Present Illness - Stated complaint Stated Complaint: HIP PX, MED REFILL - Chief complaint Chief Complaint: Ext Problem - History obtained from History obtained from: Patient - History of Present Illness Timing: How many days ago (2) - Additonal information Additional information: 52-year-old male who is benzodiazepine dependent has been given a prescription for 10 days of benzodiazepine when he withdrew and had a seizure. Seizure was witnessed and the patient improved with return to his usual dose. He had been kicked out of the clinic at [facility] and has not been able to reestablish care as yet. He has an appointment for next week. He did go into see a provider at [facility] and they refused to fill Ativan for the patient. He has been out for 2 days and he is began to feel symptoms yesterday he said sweats nausea and aches and pains all over. He states yesterday he was walking home felt odd pain in his knees and felt that he needed to sit down or might pass out and has he started to sit onto the ground he fell onto his right hip. He now has pain in the right hip. He has had a prosthetic replacement on that right side previously PD PAST MEDICAL HISTORY - Past Medical History Cardiovascular: Hypertension Respiratory: Sleep apnea Neuro: Peripheral neuropathy, Tremors, Other Endocrine/Autoimmune: None GI: GERD, Pancreatitis : Incontinence HEENT: None Psych: Depression, Anxiety Musculoskeletal: Osteoarthritis Derm: None - Past Surgical History Past Surgical History: Yes Ortho: Hip replacement, Arthroscopic surgery HEENT: Tracheostomy - Present Medications Home Medications: Ambulatory Orders Medication Instructions Recorded Confirmed Gabapentin 300 mg PO QPM 05/23/16 06/15/17 Propranolol [Inderal] 60 mg PO BID 05/23/16 06/15/17 hydrOXYzine pamoate [Hydroxyzine 100 mg PO QPM 05/23/16 06/15/17 Pamoate] Mirtazapine 7.5 mg PO QPM 08/28/16 06/15/17 Quetiapine Fumarate [Seroquel] 800 mg PO QPM 08/28/16 06/15/17 Folic Acid 1 mg PO DAILY #30 tablet 08/30/16 06/15/17 Multivitamin [Theragran] 1 tab PO DAILYWM #30 tablet 08/30/16 06/15/17 Acetaminophen [Tylenol Extra 1,000 mg PO Q8H PRN 06/15/17 06/15/17 Strength] Bupropion HCl [Bupropion HCl Sr] 200 mg PO DAILY 06/15/17 06/15/17 Docusate Sodium 250Mg Capsule 250 mg PO BID PRN 06/15/17 06/15/17 [Colace 250Mg Capsule] HYDROmorphone [Dilaudid] 2 - 4 mg PO Q4H 06/15/17 06/15/17 LORazepam [Lorazepam] 1 mg PO TID PRN 06/15/17 06/15/17 Omeprazole 20 mg PO QDAC 06/15/17 06/15/17 Ondansetron HCl [Zofran] 4 mg PO Q8H PRN 06/15/17 06/15/17 hydrOXYzine pamoate [Hydroxyzine 50 mg PO 0900,1600 06/15/17 06/15/17 Pamoate] Azithromycin [Zithromax] 250 mg PO DAILY #6 tablet 08/11/17 Lorazepam [Ativan] 1 mg PO TID #30 tablet 08/11/17 HYDROmorphone [Dilaudid] 2 - 4 mg PO Q4-6H PRN #20 tablet 08/21/17 Lorazepam [Ativan] 1 mg PO TID #30 tablet 08/21/17 - Allergies Allergies/Adverse Reactions: Allergies Allergy/AdvReac Type Severity Reaction Status Date / Time lisinopril Allergy Mild Edema Verified 08/21/17 10:10 - Social History Does the pt smoke?: No Smoking Status: Never smoker Does the pt drink ETOH?: Yes Does the pt have substance abuse?: Yes - Immunizations Immunizations are current?: Yes Immunizations: Other immun not current - POLST Patient has POLST: No POLST Status: DNR (pt clearly state to me it is DNR, Pt's mother at the bedside did not say no.) PD ED PE NORMAL - Vitals Vital signs reviewed: Yes (hypertensive) - General General: 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, Well developed/nourished, Other (diaphoretic and anxious appearing) - HEENT HEENT: Atraumatic, PERRL, EOMI - Neck Neck: Supple, no meningeal sign, No bony TTP - Cardiac Cardiac: RRR, No murmur - Respiratory Respiratory: No respiratory distress, Clear bilaterally - Abdomen Abdomen: Soft, Non tender - Back Back: No CVA TTP, No spinal TTP - Derm Derm: Normal color, Warm and dry, No rash - Extremities Extremities: No deformity, No edema, Other (There is point tenderness to the lateral hip and pain with ROM testing. 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 Compared with 04/16/2017 there has been substantial new calculus formation and heterotopic ossification but there is substantial persistent lucency at the mildly displaced fracture. There has been interval placement of some surgical wires, including one looping superiorly or laterally, lateral to the great greater trochanter. Ossification or fragment in the region of the anterior inferior iliac spine suggests subacute or chronic possible avulsion fracture. If available, comparison with more recent radiographs would be recommended.), EMP read indepedently, See rad report R femur Radiology: Prelim report reviewed (Impression: 1. New cerclage wires around the subtrochanteric fracture of the right femur. Interval bony callus formation without bony bridging of the fact fracture. Hardware appears intact.) , EMP read indepedently, See rad report PD MEDICAL DECISION MAKING - ED course Complexity details: reviewed old records, reviewed results, re-evaluated patient , considered differential, d/w patient, d/w family ED course: 52 y/o male with benzodiazepine dependance has run out of his ativan and has not been able to establish care for ongoing script. He has been out X 2 days and has become symptomatic. Yesterday not feeling well with this he fell and has injured his right hip again. He is given IM ativan with relief of symptoms and his films are reviewed with Dr. Mast Departure - Departure Disposition: 01 Home, Self Care Clinical Impression: Benzodiazepine withdrawal with complication Contusion of hip, right Qualifiers: Encounter type: initial encounter Qualified Code(s): S70.01XA - Contusion of right hip, initial encounter Condition: Stable Instructions: ED Contusion Hip, ED Withdrawal Benzodiazepine Follow-Up: [facility] [Provider Group] [facility] [Provider Group] Rambo Gregoyr MD [Physician No Access] - Prescriptions: HYDROmorphone [Dilaudid] 2 - 4 mg PO Q4-6H PRN #20 tablet PRN Reason: Pain Lorazepam [Ativan] 1 mg PO TID #30 tablet Comments: Today it does look like there is some change the bone around the prosthesis this does not look unstable. Follow-up with your orthopedic surgeon.
--- NOTE | 2017-08-21 12:07 | XRAY Report ---
EXAM: RIGHT HIP AND PELVIS RADIOGRAPHY EXAM DATE: 08/21/2017 11:39 AM. HISTORY: Fall contusion pain medially . COMPARISONS: 04/16/2017. TECHNIQUE: 1 view of the pelvis and 1 view of the hip. FINDINGS: Bone/joints: No dislocation. Again demonstrated are changes of right hip arthroplasty with long intra medullary rahel. The distal portion of the rahel is not included on these views. The proximal femoral fra cture is again demonstrated without evidence of solid healing, particularly on the frog-leg view. The re is some persistent displacement. In the interval there has been formation of substantial adjacent callus and areas of heterotopic ossification. There has also been interval placement of 2 encircling wires near the upper and lower margins of the fracture. There is an additional looping wire which inf eriorly appears to loop around the proximal femur near the distal end of the fracture with a long loo ping portion extending superiorly and laterally, lateral to the greater trochanter, between the great er trochanter and a moderate-sized lobulated area of probable heterotopic ossification. There is also a new ossification or fragment in the region of the anterior inferior iliac spine which has a more c hronic or at least subacute appearance and may represent heterotopic ossification but is suspicious f or a subacute or chronic evulsion fracture. Soft Tissues: Normal. No soft tissue swelling. IMPRESSION: Changes of right hip arthroplasty again demonstrated. Compared with 04/16/2017 there has been substantial new callus formation and heterotopic ossification but there is substantial persisten t lucency at the mildly displaced fracture. There has been interval placement of some surgical wires, including one looping superiorly and laterally, lateral to the greater trochanter. Ossification or fragment in the region of the anterior inferior iliac spine suggests a subacute or ch ronic possible evulsion fracture. If available, comparison with more recent radiographs would be loan mmended. [facility] Referring Provider Line: [phone] SITE ID: [id number]
[2017-08-21 14:02] VITALS: BP 127/101
--- NOTE | 2017-08-21 14:12 | XRAY Preliminary Report ---
Exam: XR FEMUR 2V RT IMPRESSION: 1. New cerclage wires around the subtrochanteric fracture of the right femur. Interval bony callus fo rmation without bony bridging of the fracture. The hardware appears intact. [facility] SITE ID: [id number]
--- NOTE | 2017-08-21 14:13 | XRAY Report ---
EXAM: RIGHT FEMUR RADIOGRAPHY EXAM DATE: 08/21/2017 01:42 PM. CLINICAL HISTORY: Evaluate end of prosthesis. COMPARISON: 04/16/2017. TECHNIQUE: 2 views. FINDINGS: Bones: There is a right hip arthroplasty prosthesis with a long intramedullary rahel. There is a cercla ge wire which is new since the previous radiograph. The hardware appears intact. No acute fracture is identified. There is an oblique fracture extending across the subtrochanteric proximal femur with ad jacent callus formation. The callus is increased since the previous exam. Joints: No dislocation at the hip or knee. Soft Tissues: Otherwise unremarkable IMPRESSION: 1. New cerclage wires around the subtrochanteric fracture of the right femur. Interval bony callus fo rmation without bony bridging of the fracture. The hardware appears intact. [facility] Referring Provider Line: [phone] SITE ID: [id number]
== END 2017-08-21 18:40 | disposition home or self-care (01) ==
LOC: ED 09:35
DX: F13.239 Sedative, hypnotic or anxiolytic dependence with withdrawal, unspecified (principal); S70.01XA Contusion of right hip, initial encounter; W18.39XA Other fall on same level, initial encounter; Z76.0 Encounter for issue of repeat prescription; I10 Essential (primary) hypertension; G62.9 Polyneuropathy, unspecified; M19.90 Unspecified osteoarthritis, unspecified site
CPT/HCPCS: 73502; 73552; 96372; 99283; 99284; J2060

== ENCOUNTER 2017-09-02 14:13 | Emergency (ER) | payer MEDICARE, MEDICAID ==
[2017-09-02 14:21] VITALS: BP 145/104
--- NOTE | 2017-09-02 15:08 | ED Physician Documentation ---
History of Present Illness - Stated complaint Stated Complaint: MED REFILL - Chief complaint Chief Complaint: General - History obtained from History obtained from: Patient, Family (Mother) - Additonal information Additional information: The patient is a 52-year-old male who is well known to us in the emergency department because of his relatively frequent visits related to anxiety, and alcohol dependence. He presents today requesting refill of prescription for lorazepam to treat his anxiety. He reports being sober from alcohol for the past 3 weeks. He has an appointment scheduled to see his prescribing psychiatrist 3 weeks from now, but is concerned about recurrent seizures if he does not have lorazepam. He normally takes 1 mg 3 times daily, and the last prescription he had from the emergency department has run out. His primary physician does not prescribe this type of medication, and the patient is unable to get an earlier appointment with his prescribing psychiatrist. Review of Systems Constitutional: denies: Fever Nose: denies: Congestion Cardiac: denies: Chest pain / pressure Respiratory: denies: Dyspnea, Cough GI: denies: Abdominal Pain, Nausea, Vomiting : denies: Dysuria Neurologic: denies: Seizure, Headache PD PAST MEDICAL HISTORY - Past Medical History Cardiovascular: Hypertension Respiratory: Sleep apnea Neuro: Peripheral neuropathy, Tremors, Other (Alcohol withdrawal seizures.) Endocrine/Autoimmune: None GI: GERD, Pancreatitis : Incontinence HEENT: None Psych: Depression, Anxiety Musculoskeletal: Osteoarthritis Derm: None - Past Surgical History Past Surgical History: Yes Ortho: Hip replacement, Arthroscopic surgery HEENT: Tracheostomy - Present Medications Home Medications: Ambulatory Orders Medication Instructions Recorded Confirmed Gabapentin 300 mg PO QPM 05/23/16 06/15/17 Propranolol [Inderal] 60 mg PO BID 05/23/16 06/15/17 hydrOXYzine pamoate [Hydroxyzine 100 mg PO QPM 05/23/16 06/15/17 Pamoate] Mirtazapine 7.5 mg PO QPM 08/28/16 06/15/17 Quetiapine Fumarate [Seroquel] 800 mg PO QPM 08/28/16 06/15/17 Folic Acid 1 mg PO DAILY #30 tablet 08/30/16 06/15/17 Multivitamin [Theragran] 1 tab PO DAILYWM #30 tablet 08/30/16 06/15/17 Acetaminophen [Tylenol Extra 1,000 mg PO Q8H PRN 06/15/17 06/15/17 Strength] Bupropion HCl [Bupropion HCl Sr] 200 mg PO DAILY 06/15/17 06/15/17 Docusate Sodium 250Mg Capsule 250 mg PO BID PRN 06/15/17 06/15/17 [Colace 250Mg Capsule] HYDROmorphone [Dilaudid] 2 - 4 mg PO Q4H 06/15/17 06/15/17 LORazepam [Lorazepam] 1 mg PO TID PRN 06/15/17 06/15/17 Omeprazole 20 mg PO QDAC 06/15/17 06/15/17 Ondansetron HCl [Zofran] 4 mg PO Q8H PRN 06/15/17 06/15/17 hydrOXYzine pamoate [Hydroxyzine 50 mg PO 0900,1600 06/15/17 06/15/17 Pamoate] Azithromycin [Zithromax] 250 mg PO DAILY #6 tablet 08/11/17 Lorazepam [Ativan] 1 mg PO TID #30 tablet 08/11/17 HYDROmorphone [Dilaudid] 2 - 4 mg PO Q4-6H PRN #20 tablet 08/21/17 Lorazepam [Ativan] 1 mg PO TID #30 tablet 08/21/17 Lorazepam [Ativan] 1 mg PO TID #30 tablet 09/02/17 - Allergies Allergies/Adverse Reactions: Allergies Allergy/AdvReac Type Severity Reaction Status Date / Time lisinopril Allergy Mild Edema Verified 08/21/17 10:10 - Social History Does the pt smoke?: No Smoking Status: Never smoker Does the pt drink ETOH?: Yes Does the pt have substance abuse?: Yes - Immunizations Immunizations are current?: Yes Immunizations: Other immun not current - POLST Patient has POLST: No POLST Status: DNR (pt clearly state to me it is DNR, Pt's mother at the bedside did not say no.) PD ED PE NORMAL - Vitals Vital signs reviewed: Yes (hypertensive) - General General: 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, Well developed/nourished - HEENT HEENT: Atraumatic, Moist mucous membranes - Neck Neck: No adenopathy, No JVD - Cardiac Cardiac: RRR - Respiratory Respiratory: No respiratory distress, Clear bilaterally - Abdomen Abdomen: Soft, Non tender - Back Back: No CVA TTP - Derm Derm: No rash - Extremities Extremities: No edema, No calf tenderness / cord - Neuro Neuro: 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, No motor deficit, Normal speech Results - Vitals Vitals: Oxygen O2 Source Room air PD MEDICAL DECISION MAKING - ED course Complexity details: reviewed old records, re-evaluated patient, considered differential, d/w patient, d/w family ED course: The patient's history is significant for benzodiazepine dependence, with long- term use at 1 mg 3 times daily. He has history of withdrawal seizures. He reports being alcohol free for the past few weeks. He is being discharged with prescription for lorazepam, a total of thirty 1 mg tablets. I discussed with him and his mother the importance of follow-up with Dr. Sahni at [facility] as scheduled. Departure - Departure Disposition: 01 Home, Self Care Clinical Impression: Benzodiazepine dependence, History of seizures Condition: Stable Instructions: ED Withdrawal Benzodiazepine Follow-Up: Rah Beckett PA-C [Primary Care Provider] - Saeed Sahni MD [Physician No Access] - Prescriptions: Lorazepam [Ativan] 1 mg PO TID #30 tablet Comments: Continue to refrain from alcohol. Follow up with your psychiatrist as scheduled, or sooner if possible. Return to the emergency department if recurrent seizures, or otherwise worsening symptoms. Discharge Date/Time: 09/02/17 15:15
== END 2017-09-02 15:15 | disposition home or self-care (01) ==
LOC: ED 14:13
DX: Z76.0 Encounter for issue of repeat prescription (principal); F13.20 Sedative, hypnotic or anxiolytic dependence, uncomplicated; Z86.69 Personal history of other diseases of the nervous system and sense organs; F41.9 Anxiety disorder, unspecified; I10 Essential (primary) hypertension; G62.9 Polyneuropathy, unspecified; K21.9 Gastro-esophageal reflux disease without esophagitis; M19.90 Unspecified osteoarthritis, unspecified site; Z66 Do not resuscitate
CPT/HCPCS: 99283

== ENCOUNTER 2017-09-09 14:23 | Outpatient (CLI) | payer MEDICAID, MEDICARE | END 2017-09-09 14:24 | disposition critical access hospital (66) | LOC: EMS 14:23 | PROVIDERS: ATTEND Surgery | DX: R45.851 Suicidal ideations (principal) | CPT/HCPCS: A0425; A0429 ==

== ENCOUNTER 2017-09-09 14:56 | Emergency (ER) | payer MEDICARE, MEDICAID ==
--- NOTE | 2017-09-09 15:06 | ED Physician Documentation ---
PD HPI MHE - Stated complaint Stated Complaint: MHE - History obtained from History obtained from: Patient, EMS - History of Present Illness Primary symptom: Other (he was found very somnolent and hard to rouse, so EMS called. They found empty bottle of ativan next to him and another with some pills in it. Not known if he overdosed. He did not make any suicidal statements to the Medics.). No: Off meds Timing - onset: Today Contributing factors: Substance abuse - ETOH. No: Substance abuse - drugs Similar symptoms before: Diagnosis (had been very intoxicated in the past.) Recently seen: Not recently seen Review of Systems Unable to obtain: AMS, Intoxicated PD PAST MEDICAL HISTORY - Past Medical History Cardiovascular: Hypertension Respiratory: Sleep apnea Neuro: Peripheral neuropathy, Tremors, Other (Alcohol withdrawal seizures.) Endocrine/Autoimmune: None GI: GERD, Pancreatitis : Incontinence HEENT: None Psych: Depression, Anxiety Musculoskeletal: Osteoarthritis Derm: None - Past Surgical History Past Surgical History: Yes Ortho: Hip replacement, Arthroscopic surgery HEENT: Tracheostomy - Present Medications Home Medications: Ambulatory Orders Medication Instructions Recorded Confirmed Gabapentin 300 mg PO QPM 05/23/16 06/15/17 Propranolol [Inderal] 60 mg PO BID 05/23/16 06/15/17 hydrOXYzine pamoate [Hydroxyzine 100 mg PO QPM 05/23/16 06/15/17 Pamoate] Mirtazapine 7.5 mg PO QPM 08/28/16 06/15/17 Quetiapine Fumarate [Seroquel] 800 mg PO QPM 08/28/16 06/15/17 Folic Acid 1 mg PO DAILY #30 tablet 08/30/16 06/15/17 Multivitamin [Theragran] 1 tab PO DAILYWM #30 tablet 08/30/16 06/15/17 Acetaminophen [Tylenol Extra 1,000 mg PO Q8H PRN 06/15/17 06/15/17 Strength] Bupropion HCl [Bupropion HCl Sr] 200 mg PO DAILY 06/15/17 06/15/17 Docusate Sodium 250Mg Capsule 250 mg PO BID PRN 06/15/17 06/15/17 [Colace 250Mg Capsule] HYDROmorphone [Dilaudid] 2 - 4 mg PO Q4H 06/15/17 06/15/17 LORazepam [Lorazepam] 1 mg PO TID PRN 06/15/17 06/15/17 Omeprazole 20 mg PO QDAC 06/15/17 06/15/17 Ondansetron HCl [Zofran] 4 mg PO Q8H PRN 06/15/17 06/15/17 hydrOXYzine pamoate [Hydroxyzine 50 mg PO 0900,1600 06/15/17 06/15/17 Pamoate] Azithromycin [Zithromax] 250 mg PO DAILY #6 tablet 08/11/17 Lorazepam [Ativan] 1 mg PO TID #30 tablet 08/11/17 HYDROmorphone [Dilaudid] 2 - 4 mg PO Q4-6H PRN #20 tablet 08/21/17 Lorazepam [Ativan] 1 mg PO TID #30 tablet 08/21/17 Lorazepam [Ativan] 1 mg PO TID #30 tablet 09/02/17 Naproxen 375 mg PO BID #20 tablet 09/09/17 Tramadol HCl 50 mg PO Q6H PRN #20 tablet 09/09/17 - Allergies Allergies/Adverse Reactions: Allergies Allergy/AdvReac Type Severity Reaction Status Date / Time lisinopril Allergy Mild Edema Verified 08/21/17 10:10 - Social History Does the pt smoke?: No Smoking Status: Never smoker Does the pt drink ETOH?: Yes Does the pt have substance abuse?: Yes - Immunizations Immunizations are current?: Yes Immunizations: Other immun not current - POLST Patient has POLST: No POLST Status: DNR (pt clearly state to me it is DNR, Pt's mother at the bedside did not say no.) PD ED PE NORMAL - Vitals Vital signs reviewed: Yes - General General: No: 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 (he is very somnolent and rouses only to tactile stimulus. Not able to give much information. ), Well developed/nourished - HEENT HEENT: Atraumatic, PERRL, EOMI (but dilated), Moist mucous membranes - Neck Neck: Supple, no meningeal sign, No adenopathy - Cardiac Cardiac: RRR, No murmur - Respiratory Respiratory: Clear bilaterally - Abdomen Abdomen: Soft, Non tender - Back Back: No CVA TTP - Derm Derm: Normal color, Warm and dry - Extremities Extremities: No tenderness to palpate, Normal ROM s pain - Neuro Neuro: No motor deficit. No: 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, Normal speech (slurred and indistinct words. Smell of alcohol onbreath. ) Results - Vitals Vitals: Oxygen O2 Source Room air - Labs Labs: Laboratory Tests 09/09/17 09/09/17 15:36 15:36 WBC 4.6 L RBC 4.20 L Hgb 13.3 L Hct 40.4 L MCV 96.2 H MCH 31.6 H MCHC 32.8 RDW 14.3 Plt Count 236 MPV 6.9 L Neut # 2.1 Lymph # 1.8 Gosper # 0.5 Eos # 0.2 Baso # 0.1 Absolute Nucleated RBC 0.00 Nucleated RBC % 0.1 Sodium 143 Potassium 4.1 Chloride 105 Carbon Dioxide 25 Anion Gap 13.0 BUN 16 Creatinine 0.7 Estimated GFR (MDRD) 118 Glucose 75 Calcium 8.8 Magnesium 1.9 Total Bilirubin 0.4 AST 53 H ALT 40 Alkaline Phosphatase 97 Total Protein 7.4 Albumin 4.3 Globulin 3.1 Albumin/Globulin Ratio 1.4 Lipase 24 Salicylates < 6.0 Acetaminophen < 10 L Ethyl Alcohol 311.9 PD MEDICAL DECISION MAKING - ED course Complexity details: re-evaluated patient (he sleeps awhile and awakens with slight shakiness. He denies suicidal ideation nor intentional overdose. He says he had old bottle of Ativan that was empty and had another that he took just a couple from. ), considered differential, d/w patient Departure - Departure Disposition: 01 Home, Self Care Clinical Impression: Right hip pain Altered mental status Qualifiers: Altered mental status type: somnolence Qualified Code(s): R40.0 - Somnolence Alcohol intoxication Qualifiers: Complication of substance-induced condition: uncomplicated Qualified Code(s): F10.920 - Alcohol use, unspecified with intoxication, uncomplicated Condition: Stable Record reviewed to determine appropriate education?: Yes Instructions: ED Alcohol Intoxication Follow-Up: Rah Beckett PA-C [Primary Care Provider] - Prescriptions: Naproxen 375 mg PO BID #20 tablet Tramadol HCl 50 mg PO Q6H PRN #20 tablet PRN Reason: Pain Comments: Drink lots of fluids. No alcohol use. Use your regular medications at home. For the hip you can use naproxen twice daily next 7-10 days and add Tylenol or tramadol if needed for pain. Follow-up with your primary care. Discharge Date/Time: 09/09/17 20:37
[2017-09-09] MEDS ORDERED: SODIUM CHLORIDE 0.9% 1,000 ML IV ONE (15:19)
[2017-09-09 15:41] LABS: BASOPHILS # (AUTO) 0.1 10^3/uL (0.0-0.1); BASOPHILS % (AUTO) 1.2 %; EOSINOPHILS # (AUTO) 0.2 10^3/uL (0.0-0.7); EOSINOPHILS % (AUTO) 3.7 %; HGB - HEMOGLOBIN 13.3 g/dL (14.0-18.0); LYMPHOCYTES # (AUTO) 1.8 10^3/uL (1.5-3.5); MEAN CORPUSCULAR HEMOGLOBIN 31.6 pg (27.0-31.0); MEAN CORPUSCULAR HGB CONC 32.8 g/dL (32.0-36.0); MEAN CORPUSCULAR VOLUME 96.2 fL (80.0-94.0); MEAN PLATELET VOLUME 6.9 fL (7.4-11.4); MONOCYTES # (AUTO) 0.5 10^3/uL (0.0-1.0); NEUTROPHILS # (AUTO) 2.1 10^3/uL (1.5-6.6); NEUTROPHILS % (AUTO) 45.1 %; PLT - PLATELET COUNT 236 10^3/uL (130-450); RED CELL DISTRIBUTION WIDTH 14.3 % (12.0-15.0); WHITE BLOOD COUNT 4.6 x10^3/uL (4.8-10.8)
[2017-09-09 15:58] LABS: ALBUMIN 4.3 g/dL (3.2-5.5); ALBUMIN/GLOBULIN RATIO 1.4 (1.0-2.2); ALKALINE PHOSPHATASE 97 IU/L (42-121); ALT ALANINE AMINOTRANSFERASE 40 IU/L (10-60); AST ASPARTATE AMINOTRANSFERASE 53 IU/L (10-42); BILIRUBIN,TOTAL 0.4 mg/dL (0.2-1.0); BUN - BLOOD UREA NITROGEN 16 mg/dL (6-20); CALCIUM 8.8 mg/dL (8.5-10.3); CARBON DIOXIDE - CO2 25 mmol/L (21-32); CHLORIDE 105 mmol/L (101-111); CREATININE 0.7 mg/dL (0.6-1.2); GFR - MDRD 118 (>89); GLUCOSE 75 mg/dL (70-100); LIPASE 24 U/L (22-51); MAGNESIUM 1.9 mg/dL (1.7-2.8); SALICYLATE < 6.0 mg/dL; SODIUM 143 mmol/L (135-145); TOTAL PROTEIN 7.4 g/dL (6.7-8.2)
[2017-09-09 16:05] LABS: ACETAMINOPHEN < 10 ug/mL (10-30)
[2017-09-09] MEDS ORDERED: KETOROLAC 30 MG/ML VIAL IVP STA (19:32)
[2017-09-09] MEDS ORDERED: traMADol 50 MG TABLET PO STA (19:32)
[2017-09-09] MEDS ORDERED: LORazepam 0.5 MG TABLET PO STA (19:33)
[2017-09-09 20:39] VITALS: BP 113/72
== END 2017-09-09 20:37 | disposition home or self-care (01) ==
LOC: EDUNIT# → ED 14:56
DX: M25.551 Pain in right hip (principal); R40.0 Somnolence; F10.920 Alcohol use, unspecified with intoxication, uncomplicated; I10 Essential (primary) hypertension; G62.9 Polyneuropathy, unspecified; Z96.649 Presence of unspecified artificial hip joint; Z93.0 Tracheostomy status
CPT/HCPCS: 36415; 80053; 80307; 83690; 83735; 85025; 96361; 96374; 99284; A9270; G0480; 80320; 80329

== ENCOUNTER 2017-09-20 21:58 | Outpatient (CLI) | payer MEDICAID, MEDICARE | END 2017-09-20 21:59 | disposition critical access hospital (66) | LOC: EMS 21:58 | PROVIDERS: ATTEND Surgery | DX: R10.9 Unspecified abdominal pain (principal); Z72.89 Other problems related to lifestyle | CPT/HCPCS: A0425; A0429 ==

== ENCOUNTER 2017-09-20 22:17 | Emergency (ER) | payer MEDICARE, MEDICAID ==
--- NOTE | 2017-09-20 23:23 | ED Physician Documentation ---
History of Present Illness - Stated complaint Stated Complaint: L SIDE PAIN - Chief complaint Chief Complaint: Abd Pain - History obtained from History obtained from: Patient, EMS - History of Present Illness Timing: Today Pain level now: 8 Improved by: rest Worsened by: palpation - Additonal information Additional information: patient has been drinking alcohol tonight, has had multiple [facility] visits, many of which are due to alcohol-related problems. he lives with his mother; per EMS report, patient was found on floor tonight by mother who then called 911. patient does not recall falling. patient is c/o left flank and LUQ pain Review of Systems Eyes: reports: Reviewed and negative Cardiac: reports: Reviewed and negative Respiratory: reports: Reviewed and negative GI: reports: Abdominal Pain (LUQ and left flank). denies: Nausea, Vomiting Musculoskeletal: denies: Neck pain, Back pain, Joint pain Neurologic: denies: Generalized weakness, Focal weakness, Numbness, Headache, LOC Psychiatric: reports: Anxiety. denies: Suicidal PD PAST MEDICAL HISTORY - Past Medical History Past Medical History: Yes Cardiovascular: Hypertension Respiratory: Sleep apnea Neuro: Peripheral neuropathy, Tremors, Other Endocrine/Autoimmune: None GI: GERD, Pancreatitis : Incontinence HEENT: None Psych: Depression, Anxiety Musculoskeletal: Osteoarthritis Derm: None - Past Surgical History Past Surgical History: Yes Ortho: Hip replacement, Arthroscopic surgery HEENT: Tracheostomy - Present Medications Home Medications: Ambulatory Orders Medication Instructions Recorded Confirmed Gabapentin 300 mg PO QPM 05/23/16 06/15/17 Propranolol [Inderal] 60 mg PO BID 05/23/16 06/15/17 hydrOXYzine pamoate [Hydroxyzine 100 mg PO QPM 05/23/16 06/15/17 Pamoate] Mirtazapine 7.5 mg PO QPM 08/28/16 06/15/17 Quetiapine Fumarate [Seroquel] 800 mg PO QPM 08/28/16 06/15/17 Folic Acid 1 mg PO DAILY #30 tablet 08/30/16 06/15/17 Multivitamin [Theragran] 1 tab PO DAILYWM #30 tablet 08/30/16 06/15/17 Acetaminophen [Tylenol Extra 1,000 mg PO Q8H PRN 06/15/17 06/15/17 Strength] Bupropion HCl [Bupropion HCl Sr] 200 mg PO DAILY 06/15/17 06/15/17 Docusate Sodium 250Mg Capsule 250 mg PO BID PRN 06/15/17 06/15/17 [Colace 250Mg Capsule] HYDROmorphone [Dilaudid] 2 - 4 mg PO Q4H 06/15/17 06/15/17 LORazepam [Lorazepam] 1 mg PO TID PRN 06/15/17 06/15/17 Omeprazole 20 mg PO QDAC 06/15/17 06/15/17 Ondansetron HCl [Zofran] 4 mg PO Q8H PRN 06/15/17 06/15/17 hydrOXYzine pamoate [Hydroxyzine 50 mg PO 0900,1600 06/15/17 06/15/17 Pamoate] Azithromycin [Zithromax] 250 mg PO DAILY #6 tablet 08/11/17 Lorazepam [Ativan] 1 mg PO TID #30 tablet 08/11/17 HYDROmorphone [Dilaudid] 2 - 4 mg PO Q4-6H PRN #20 tablet 08/21/17 Lorazepam [Ativan] 1 mg PO TID #30 tablet 08/21/17 Lorazepam [Ativan] 1 mg PO TID #30 tablet 09/02/17 Naproxen 375 mg PO BID #20 tablet 09/09/17 Tramadol HCl 50 mg PO Q6H PRN #20 tablet 09/09/17 Lidocaine Patch 5% [Lidoderm Patch] 1 each TOP DAILY PRN #10 patch 09/21/17 - Allergies Allergies/Adverse Reactions: Allergies Allergy/AdvReac Type Severity Reaction Status Date / Time lisinopril Allergy Mild Edema Verified 08/21/17 10:10 - Social History Does the pt smoke?: No Smoking Status: Never smoker Does the pt drink ETOH?: Yes Does the pt have substance abuse?: Yes - Immunizations Immunizations are current?: Yes Immunizations: Other immun not current - POLST Patient has POLST: No POLST Status: DNR (pt clearly state to me it is DNR, Pt's mother at the bedside did not say no.) PD ED PE NORMAL - Vitals Vital signs reviewed: Yes - General General: 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, No acute distress, Well developed/nourished, Other (mild slurred speech but intelligible answers; he exhibits mild difficulty with some recall, but this is c/w previous presentations) - HEENT HEENT: Atraumatic, PERRL, EOMI, Moist mucous membranes - Neck Neck: No bony TTP - Cardiac Cardiac: RRR, No murmur - Respiratory Respiratory: No respiratory distress, Clear bilaterally - Abdomen Abdomen: Soft, Non distended, Other (small left-sided/flank echymosis; mild tenderness to palpation left lower anterolateral chest and LUQ abdomen) - Back Back: No CVA TTP, No spinal TTP - Extremities Extremities: No deformity, No tenderness to palpate, Normal ROM s pain, No edema Results - Vitals Vitals: Vital Signs - 24 hr 09/20/17 09/21/17 09/21/17 22:19 05:49 14:15 Temperature 36.3 C L 37.0 C 36.6 C Heart Rate 95 86 107 H Respiratory 18 12 14 Rate Blood Pressure 142/105 H 109/86 H 141/91 H O2 Saturation 97 98 100 09/21/17 16:09 Temperature 36.8 C Heart Rate 97 Respiratory 18 Rate Blood Pressure 141/103 H O2 Saturation 99 Oxygen O2 Source Room air - Labs Labs: Laboratory Tests 09/20/17 09/20/17 23:19 23:19 WBC 4.6 L RBC 4.16 L Hgb 13.5 L Hct 40.5 L MCV 97.3 H MCH 32.3 H MCHC 33.2 RDW 14.0 Plt Count 198 MPV 7.2 L Neut # 2.8 Lymph # 1.2 L Terrell # 0.6 Eos # 0.0 Baso # 0.0 Absolute Nucleated RBC 0.01 Nucleated RBC % 0.2 Sodium 142 Potassium 4.0 Chloride 104 Carbon Dioxide 25 Anion Gap 13.0 BUN 20 Creatinine 0.8 Estimated GFR (MDRD) 101 Glucose 99 Calcium 9.2 Total Bilirubin 0.5 AST 72 H ALT 66 H Alkaline Phosphatase 107 Total Protein 7.9 Albumin 4.7 Globulin 3.2 Albumin/Globulin Ratio 1.5 Lipase 38 Ethyl Alcohol 325.3 - Rads (name of study) CT A/P Radiology: Prelim report reviewed, See rad report PD MEDICAL DECISION MAKING - ED course Complexity details: reviewed old records, reviewed results, re-evaluated patient , considered differential, d/w patient ED course: patient presents intoxicated (ethanol), left chest wall and LUQ pain/ tenderness. he does not specifically recall falling, but his regular and heavy drinking has impaired his recall on previous ED visits. CT A/P performed to assess possible splenic injury. CT A/P reveals possible nondisplaced acute left 7th rib fracture but no underlying injury (including no pneumothorax and no splenic injury). Incidental finding of right hip fluid collection, but no findings on exam to suggest this is an emergent issue (such as infection; right hip is not hot to touch, tender, or limited in ROM). Long stay in ED, held for SW consult in AM to assess options for detox. He did not exhibit overt signs of alcohol withdrawal during ED stay on my shift, given small amount (0.5mg IV) ativan x 1 dose as well as bentyl for abdominal cramping. Based on charting from recent visits, his mentation is better than many of his recent ED visits and hospital stays. Departure - Departure Disposition: 01 Home, Self Care Clinical Impression: Alcoholism, Anxiety, Alcohol withdrawal, Rib fracture Alcohol intoxication Qualifiers: Complication of substance-induced condition: uncomplicated Qualified Code(s): F10.920 - Alcohol use, unspecified with intoxication, uncomplicated Condition: Good Instructions: ED Alcohol Intoxication, ED Fx Rib, ED Alcohol Abuse Follow-Up: [facility] [Provider Group] [facility] [Provider Group] Prescriptions: Lidocaine Patch 5% [Lidoderm Patch] 1 each TOP DAILY PRN #10 patch PRN Reason: Pain Comments: Please follow up the detox facilities to see when a bed is available Try to start cutting down on your drinking Return if worse As Dr Orellana disuseed with you, theere is fluid in the right hip joint and the hardware may be coming loose so you should follow up with orthopedics Discharge Date/Time: 09/21/17 16:33
[2017-09-20] MEDS ORDERED: MAGNESIUM SULFATE 2 GRAM 2 GM/50 ML BAG IV STA (23:26)
[2017-09-20] MEDS ORDERED: MULTIVITAMIN 10 ML in SODIUM CHLORIDE 0.9% 1,000 ML IV STA (23:26)
[2017-09-20] MEDS ORDERED: THIAMINE INJ 100 MG, FOLIC ACID INJ 1 MG in SODIUM CHLORIDE 0.9% 100ML 100 ML IV STA (23:26)
[2017-09-20 23:34] LABS: BASOPHILS % (AUTO) 0.6 %; HGB - HEMOGLOBIN 13.5 g/dL (14.0-18.0); LYMPHOCYTES # (AUTO) 1.2 10^3/uL (1.5-3.5); LYMPHOCYTES % (AUTO) 25.3 %; MEAN CORPUSCULAR HEMOGLOBIN 32.3 pg (27.0-31.0); MEAN CORPUSCULAR HGB CONC 33.2 g/dL (32.0-36.0); MEAN CORPUSCULAR VOLUME 97.3 fL (80.0-94.0); MEAN PLATELET VOLUME 7.2 fL (7.4-11.4); MONOCYTES # (AUTO) 0.6 10^3/uL (0.0-1.0); MONOCYTES % (AUTO) 12.9 %; NEUTROPHILS # (AUTO) 2.8 10^3/uL (1.5-6.6); NEUTROPHILS % (AUTO) 60.2 %; PLT - PLATELET COUNT 198 10^3/uL (130-450); RED BLOOD COUNT 4.16 10^6/uL (4.70-6.10); WHITE BLOOD COUNT 4.6 x10^3/uL (4.8-10.8)
[2017-09-20 23:43] LABS: ALBUMIN 4.7 g/dL (3.2-5.5); ALBUMIN/GLOBULIN RATIO 1.5 (1.0-2.2); BILIRUBIN,TOTAL 0.5 mg/dL (0.2-1.0); CALCIUM 9.2 mg/dL (8.5-10.3); CREATININE 0.8 mg/dL (0.6-1.2); TOTAL PROTEIN 7.9 g/dL (6.7-8.2)
[2017-09-20] MEDS ORDERED: IOPAMIDOL-300 100 ML VIAL ONE (23:43)
[2017-09-20] MEDS ORDERED: IOPAMIDOL-300 100 ML VIAL IVP ONE (23:58)
--- NOTE | 2017-09-21 00:26 | CT Report ---
EXAM: CT ABDOMEN AND PELVIS EXAM DATE: 09/21/2017 12:10 AM. CLINICAL HISTORY: Abdominal pain and tenderness. COMPARISONS: 04/02/2017. TECHNIQUE: Routine helical CT imaging was performed through the abdomen and pelvis. IV contrast: 100M L ISOVUE 300. Enteric contrast: No. Reconstructions: Coronal and sagittal. In accordance with CT protocol optimization, one or more of the following dose reduction techniques w ere utilized for this exam: automated exposure control, adjustment of mA and/or KV based on patient s ize, or use of iterative reconstructive technique. FINDINGS: Lung Bases: Unremarkable. Liver: Fatty infiltration. Gallbladder/Bile Ducts: Unremarkable. Spleen: Normal. Pancreas: Normal. Adrenal Glands: Normal. Kidneys: Normal. No masses or hydronephrosis. Peritoneal Cavity/Bowel: There are some colonic diverticula. No diverticulitis is seen. No bowel obst ruction. Normal sized mesenteric lymph nodes. No free air or free fluid. Appendix appears normal. Pelvic Organs: Streak artifact. Visualized pelvic organs are grossly unremarkable. Vasculature: No aneurysms or other significant abnormality. Bones: Old left rib fractures. Probable subtle acute left seventh rib fracture. Right hip prosthesis. There is some lucency about the stem which could represent loosening or infection. Other: Large fluid collection about the right hip prosthesis measuring about 10 x 6 cm. IMPRESSION: 1. There are old left rib fractures. Subtle nondisplaced acute left seventh rib fracture suspected. 2. Fatty liver. 3. No diverticulitis or appendicitis. 4. Right hip prosthesis. Large fluid collection about the right hip measuring approximately 10 x 6 cm . There may be some loosening or infection of the prosthesis. [facility] Referring Provider Line: [phone] SITE ID: [id number]
[2017-09-21] MEDS ORDERED: LORazepam 2 MG/ML VIAL IVP STA ×2 (05:50→11:45)
[2017-09-21] MEDS ORDERED: DICYCLOMINE 10 MG CAPSULE PO STA (05:50)
[2017-09-21] MEDS ORDERED: LORazepam 0.5 MG TABLET PO STA ×2 (14:43→15:49)
--- NOTE | 2017-09-21 15:54 | ED Physician Documentation ---
History of Present Illness - Stated complaint Stated Complaint: L SIDE PAIN - Chief complaint Chief Complaint: Abd Pain PD PAST MEDICAL HISTORY - Past Medical History Past Medical History: Yes Cardiovascular: Hypertension Respiratory: Sleep apnea Neuro: Peripheral neuropathy, Tremors, Other Endocrine/Autoimmune: None GI: GERD, Pancreatitis : Incontinence HEENT: None Psych: Depression, Anxiety Musculoskeletal: Osteoarthritis Derm: None - Past Surgical History Past Surgical History: Yes Ortho: Hip replacement, Arthroscopic surgery HEENT: Tracheostomy - Present Medications Home Medications: Ambulatory Orders Medication Instructions Recorded Confirmed Gabapentin 300 mg PO QPM 05/23/16 06/15/17 Propranolol [Inderal] 60 mg PO BID 05/23/16 06/15/17 hydrOXYzine pamoate [Hydroxyzine 100 mg PO QPM 05/23/16 06/15/17 Pamoate] Mirtazapine 7.5 mg PO QPM 08/28/16 06/15/17 Quetiapine Fumarate [Seroquel] 800 mg PO QPM 08/28/16 06/15/17 Folic Acid 1 mg PO DAILY #30 tablet 08/30/16 06/15/17 Multivitamin [Theragran] 1 tab PO DAILYWM #30 tablet 08/30/16 06/15/17 Acetaminophen [Tylenol Extra 1,000 mg PO Q8H PRN 06/15/17 06/15/17 Strength] Bupropion HCl [Bupropion HCl Sr] 200 mg PO DAILY 06/15/17 06/15/17 Docusate Sodium 250Mg Capsule 250 mg PO BID PRN 06/15/17 06/15/17 [Colace 250Mg Capsule] HYDROmorphone [Dilaudid] 2 - 4 mg PO Q4H 06/15/17 06/15/17 LORazepam [Lorazepam] 1 mg PO TID PRN 06/15/17 06/15/17 Omeprazole 20 mg PO QDAC 06/15/17 06/15/17 Ondansetron HCl [Zofran] 4 mg PO Q8H PRN 06/15/17 06/15/17 hydrOXYzine pamoate [Hydroxyzine 50 mg PO 0900,1600 06/15/17 06/15/17 Pamoate] Azithromycin [Zithromax] 250 mg PO DAILY #6 tablet 08/11/17 Lorazepam [Ativan] 1 mg PO TID #30 tablet 08/11/17 HYDROmorphone [Dilaudid] 2 - 4 mg PO Q4-6H PRN #20 tablet 08/21/17 Lorazepam [Ativan] 1 mg PO TID #30 tablet 08/21/17 Lorazepam [Ativan] 1 mg PO TID #30 tablet 09/02/17 Naproxen 375 mg PO BID #20 tablet 09/09/17 Tramadol HCl 50 mg PO Q6H PRN #20 tablet 09/09/17 Lidocaine Patch 5% [Lidoderm Patch] 1 each TOP DAILY PRN #10 patch 09/21/17 - Allergies Allergies/Adverse Reactions: Allergies Allergy/AdvReac Type Severity Reaction Status Date / Time lisinopril Allergy Mild Edema Verified 08/21/17 10:10 - Social History Does the pt smoke?: No Smoking Status: Never smoker Does the pt drink ETOH?: Yes Does the pt have substance abuse?: Yes - Immunizations Immunizations are current?: Yes Immunizations: Other immun not current - POLST Patient has POLST: No POLST Status: DNR (pt clearly state to me it is DNR, Pt's mother at the bedside did not say no.) Results - Vitals Vitals: Vital Signs - 24 hr 09/20/17 09/21/17 09/21/17 22:19 05:49 14:15 Temperature 36.3 C L 37.0 C 36.6 C Heart Rate 95 86 107 H Respiratory 18 12 14 Rate Blood Pressure 142/105 H 109/86 H 141/91 H O2 Saturation 97 98 100 09/21/17 16:09 Temperature 36.8 C Heart Rate 97 Respiratory 18 Rate Blood Pressure 141/103 H O2 Saturation 99 Oxygen O2 Source Room air - Labs Labs: Laboratory Tests 09/20/17 09/20/17 23:19 23:19 WBC 4.6 L RBC 4.16 L Hgb 13.5 L Hct 40.5 L MCV 97.3 H MCH 32.3 H MCHC 33.2 RDW 14.0 Plt Count 198 MPV 7.2 L Neut # 2.8 Lymph # 1.2 L Douglas # 0.6 Eos # 0.0 Baso # 0.0 Absolute Nucleated RBC 0.01 Nucleated RBC % 0.2 Sodium 142 Potassium 4.0 Chloride 104 Carbon Dioxide 25 Anion Gap 13.0 BUN 20 Creatinine 0.8 Estimated GFR (MDRD) 101 Glucose 99 Calcium 9.2 Total Bilirubin 0.5 AST 72 H ALT 66 H Alkaline Phosphatase 107 Total Protein 7.9 Albumin 4.7 Globulin 3.2 Albumin/Globulin Ratio 1.5 Lipase 38 Ethyl Alcohol 325.3 PD MEDICAL DECISION MAKING - ED course ED course: 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 52 male know drinker - drinks approx a fifth of vodka nightly was drinking last night fell and suffered a broken rib no head neck injury Dr Orellana did labs and CT plan is to dc pt but he request detox so pt turned over to me pending SW eval SW unable to see pt today 2/2 high case volume so nurse Taye called local detox facilities and helped pt do intake over the phone - but no beds available today so plan to dc pt and detox can call him when beds available while pursuing detox pt has started to have withdrawal including shakes and tachycardia given ativan pt able to ambulate has a place to go feels safe going home will dc as planned Departure - Departure Disposition: 01 Home, Self Care Clinical Impression: Alcoholism, Anxiety Alcohol intoxication Qualifiers: Complication of substance-induced condition: uncomplicated Qualified Code(s): F10.920 - Alcohol use, unspecified with intoxication, uncomplicated Alcohol withdrawal Qualifiers: Complication of substance-induced condition: uncomplicated Qualified Code(s): F10.230 - Alcohol dependence with withdrawal, uncomplicated Rib fracture Qualifiers: Encounter type: initial encounter Rib fracture type: single rib Fracture type: closed Laterality: left Qualified Code(s): S22.32XA - Fracture of one rib, left side, initial encounter for closed fracture Condition: Good Instructions: ED Alcohol Intoxication, ED Fx Rib, ED Alcohol Abuse Follow-Up: [facility] [Provider Group] Merged With [facility] [Provider Group] Prescriptions: Lidocaine Patch 5% [Lidoderm Patch] 1 each TOP DAILY PRN #10 patch PRN Reason: Pain Comments: Please follow up the detox facilities to see when a bed is available Try to start cutting down on your drinking Return if worse As Dr Orellana disuseed with you, theere is fluid in the right hip joint and the hardware may be coming loose so you should follow up with orthopedics Discharge Date/Time: 09/21/17 16:33
[2017-09-21 16:15] VITALS: BP 141/103
== END 2017-09-21 16:33 | disposition home or self-care (01) ==
LOC: EDUNIT# → ED 22:17
DX: F10.230 Alcohol dependence with withdrawal, uncomplicated (principal); S22.39XA Fracture of one rib, unspecified side, initial encounter for closed fracture; X58.XXXA Exposure to other specified factors, initial encounter; G62.9 Polyneuropathy, unspecified; Z96.649 Presence of unspecified artificial hip joint; Z93.0 Tracheostomy status; I10 Essential (primary) hypertension
CPT/HCPCS: 74177; 80053; 83690; 85025; 99284; A9270; G0480; J2060; J3411; Q9967; 80320

== ENCOUNTER 2018-01-04 14:46 | Outpatient (CLI) | payer MEDICARE, MEDICAID ==
[2018-01-04 19:07] LABS: BASOPHILS % (AUTO) 1.3 %; EOSINOPHILS # (AUTO) 0.1 10^3/uL (0.0-0.7); EOSINOPHILS % (AUTO) 3.7 %; HGB - HEMOGLOBIN 14.1 g/dL (14.0-18.0); LYMPHOCYTES # (AUTO) 1.1 10^3/uL (1.5-3.5); MEAN CORPUSCULAR HEMOGLOBIN 36.4 pg (27.0-31.0); MEAN CORPUSCULAR HGB CONC 34.2 g/dL (32.0-36.0); MEAN CORPUSCULAR VOLUME 106.3 fL (80.0-94.0); MEAN PLATELET VOLUME 8.4 fL (7.4-11.4); MONOCYTES # (AUTO) 0.5 10^3/uL (0.0-1.0); MONOCYTES % (AUTO) 14.6 %; NEUTROPHILS # (AUTO) 1.6 10^3/uL (1.5-6.6); NEUTROPHILS % (AUTO) 47.4 %; PLT - PLATELET COUNT 188 10^3/uL (130-450); RED BLOOD COUNT 3.86 10^6/uL (4.70-6.10); RED CELL DISTRIBUTION WIDTH 13.7 % (12.0-15.0); WHITE BLOOD COUNT 3.4 x10^3/uL (4.8-10.8)
== END 2018-01-04 14:47 | disposition home or self-care (01) ==
LOC: LAB.N 14:46
PROVIDERS: ATTEND Physician Assistant Medical
DX: R19.5 Other fecal abnormalities (principal)
CPT/HCPCS: 36415; 85025

== ENCOUNTER 2018-01-11 14:38 | Outpatient (CLI) | payer MEDICARE, MEDICAID ==
--- NOTE | 2018-01-12 08:00 | Ultrasound Report ---
Procedure Date: 01/11/2018 Accession Number: [id number] / [id number] Procedure: US - Abdomen Limited CPT Code: FULL RESULT: EXAM: Abdomen Limited DATE: 01/11/2018 4:30 PM CLINICAL HISTORY: LEFT UPPER QUADRANT PAIN COMPARISON: None. TECHNIQUE: Real-time scanning was performed with static images obtained. FINDINGS: Grayscale images of the abdominal wall region of interest were obtained. No soft tissue defect, mass or collection is identified. IMPRESSION: No hernia is identified. [facility]
== END 2018-01-11 14:39 | disposition home or self-care (01) ==
LOC: DI 14:38
PROVIDERS: ATTEND Physician Assistant Medical
DX: R10.12 Left upper quadrant pain (principal)
CPT/HCPCS: 76705

== ENCOUNTER 2018-01-25 06:16 | Day surgery (SDC) | payer MEDICARE, MEDICAID ==
[~2018-01-25 06:16] MED LIST: LACTATED RINGERS 1,000 ML IV ONE
--- NOTE | 2018-01-25 07:05 | ANESTHESIA ---
Pre-Anesthesia VS, & Labs - Diagnosis screening - Procedure colonoscopy Vital Signs: Temp Pulse Resp BP Pulse Ox 36.3 C L 18 146/118 H 98 01/25/18 06:15 01/25/18 06:15 01/25/18 06:15 01/25/18 06:15 Height 6 ft 7 in Weight (kg) 97.3 kg Body Mass Index 21.9 - NPO >8 hours Home Medications and Allergies Home Medications: Ambulatory Orders Medication Instructions Recorded Confirmed Gabapentin 300 mg PO QPM 05/23/16 01/22/18 Propranolol [Inderal] 60 mg PO BID 05/23/16 01/22/18 Mirtazapine 7.5 mg PO QPM 08/28/16 01/22/18 Folic Acid 1 mg PO DAILY #30 tablet 08/30/16 01/22/18 Multivitamin [Theragran] 1 tab PO DAILYWM #30 tablet 08/30/16 01/22/18 Bupropion HCl [Bupropion HCl Sr] 200 mg PO DAILY 06/15/17 01/22/18 Omeprazole 20 mg PO QDAC 06/15/17 01/22/18 hydrOXYzine pamoate [Hydroxyzine 50 mg PO 0900,1600 06/15/17 01/22/18 Pamoate] Lorazepam [Ativan] 1 mg PO TID #30 tablet 09/02/17 01/22/18 Allergies/Adverse Reactions: Allergies Allergy/AdvReac Type Severity Reaction Status Date / Time lisinopril Allergy Mild Anaphylaxis Verified 01/22/18 13:25 Anes History & Medical History - Anesthetic History Anesthesia Complications: reports: No previous complications - Medical History Cardiovascular: reports: Hypertension, High cholesterol Pulmonary: reports: Sleep apnea, CPAP use Gastrointestinal: reports: GERD, Pancreatitis Urinary: reports: Incontinence Musculoskeletal: reports: Osteoarthritis Endocrine/Autoimmune: reports: None Blood Disorders: reports: None Skin: reports: None Smoking Status: Never smoker - Surgical History Eyes Ears Nose Throat (EENT): Tracheostomy Orthopedic: Hip replacement, Arthroscopic surgery Exam General: Alert, Oriented x3, No acute distress Dental: Other Mouth Openin Fingerbreadth Neck Mobility: Normal Mallampati classification: II Thyromental Distance: greater than 6 cm Respiratory: Lungs clear Cardiovascular: Regular rate, Normal S1, Normal S2, No murmurs Plan Anesthesia Type: MAC Consent for Procedure(s) Verified and Reviewed: Yes Code Status: Attempt Resuscitation ASA classification: 2-Mild systemic disease Is this case an emergency?: No
[2018-01-25] MEDS ORDERED: LIDOCAINE-MPF 2% 5 ML VIAL IM ONE (08:26)
[2018-01-25] MEDS ORDERED: PROPOFOL 200 MG/20 ML VIAL IVP ONE (08:26)
[2018-01-25 09:03] VITALS: BP 135/76
== END 2018-01-25 06:17 | disposition home or self-care (01) ==
LOC: SDS 06:16
PROVIDERS: ATTEND Surgery
PROC: 0DJD8ZZ Inspection of Lower Intestinal Tract, Via Natural or Artificial Opening Endoscopic (ICD-10-PCS; principal; 2018-01-25 07:30)
DX: Z12.11 Encounter for screening for malignant neoplasm of colon (principal); K57.30 Diverticulosis of large intestine without perforation or abscess without bleeding; K64.8 Other hemorrhoids; I10 Essential (primary) hypertension; G47.30 Sleep apnea, unspecified; F32.9 Major depressive disorder, single episode, unspecified; F41.0 Panic disorder [episodic paroxysmal anxiety]; F40.240 Claustrophobia; Z79.899 Other long term (current) drug therapy; Z87.891 Personal history of nicotine dependence; Z86.69 Personal history of other diseases of the nervous system and sense organs
CPT/HCPCS: G0121; J7120

== ENCOUNTER 2018-02-22 10:35 | Outpatient (CLI) | payer MEDICARE, MEDICAID ==
[2018-02-22 19:05] LABS: BASOPHILS % (AUTO) 0.8 %; EOSINOPHILS # (AUTO) 0.1 10^3/uL (0.0-0.7); EOSINOPHILS % (AUTO) 1.8 %; HGB - HEMOGLOBIN 15.4 g/dL (14.0-18.0); LYMPHOCYTES # (AUTO) 1.3 10^3/uL (1.5-3.5); LYMPHOCYTES % (AUTO) 24.8 %; MEAN CORPUSCULAR HEMOGLOBIN 34.5 pg (27.0-31.0); MEAN CORPUSCULAR HGB CONC 33.6 g/dL (32.0-36.0); MEAN CORPUSCULAR VOLUME 102.9 fL (80.0-94.0); MEAN PLATELET VOLUME 8.4 fL (7.4-11.4); MONOCYTES # (AUTO) 0.8 10^3/uL (0.0-1.0); MONOCYTES % (AUTO) 15.2 %; NEUTROPHILS % (AUTO) 57.4 %; PLT - PLATELET COUNT 216 10^3/uL (130-450); RED BLOOD COUNT 4.44 10^6/uL (4.70-6.10); RED CELL DISTRIBUTION WIDTH 13.5 % (12.0-15.0); WHITE BLOOD COUNT 5.2 x10^3/uL (4.8-10.8)
[2018-02-22 19:53] LABS: % IRON SATURATION 64 % (20-50); BUN - BLOOD UREA NITROGEN 10 mg/dL (6-20); CALCIUM 9.7 mg/dL (8.5-10.3); CARBON DIOXIDE - CO2 26 mmol/L (21-32); CHLORIDE 100 mmol/L (101-111); CREATININE 0.8 mg/dL (0.6-1.2); GFR - MDRD 101 (>89); GLUCOSE 84 mg/dL (70-100); IRON 186 ug/dL (45-182); SODIUM 140 mmol/L (135-145); TOTAL IRON BINDING CAPACITY 293 ug/dL (250-450); TRANSFERRIN 209 mg/dL (180-329)
[2018-02-22 19:54] LABS: CRP - C-REACTIVE PROTEIN < 1.0 mg/dL (0-1.0)
[2018-02-22 20:06] LABS: HB2 TOTAL 16.1 g/dL; HEMOGLOBIN A1C 0.47 g/dL; HEMOGLOBIN A1C % 4.8 % (4.6-6.2)
[2018-02-22 20:20] LABS: FOLATE > 49.60 ng/mL (5.90 - >24.8)
[2018-02-24 13:56] LABS: ANA SCREEN NEGATIVE (NEGATIVE)
== END 2018-02-22 10:36 | disposition home or self-care (01) ==
LOC: LAB.N 10:35
PROVIDERS: ATTEND Physician Assistant Medical
DX: R27.9 Unspecified lack of coordination (principal); F10.20 Alcohol dependence, uncomplicated; G62.9 Polyneuropathy, unspecified
CPT/HCPCS: 36415; 80048; 82607; 82746; 83036; 83540; 84466; 85025; 85651; 86038; 86140

== ENCOUNTER 2018-03-13 16:31 | Emergency (ER) | payer MEDICARE, MEDICAID ==
--- NOTE | 2018-03-13 17:04 | ED Physician Documentation ---
PD HPI UPPER EXT INJURY - Stated complaint Stated Complaint: LT HAND INJ - Chief complaint Chief Complaint: Ext Problem - History obtained from History obtained from: Patient - History of Present Illness Location: Left, Hand Type of injury: Blunt / blow Where injury occurred: Home Timing - onset: How many weeks ago (1) Timing - duration: Weeks (1) Timing - details: Abrupt onset, Still present Improved by: Rest, Immobilization Worsened by: Moving, Palpating Associated symptoms: Swelling, Discolored. No: Weakness Contributing factors: No: Anticoagulated Similar symptoms before: Diagnosis (hand fracture) Recently seen: Not recently seen - Additonal information Additional information: 53-year-old male comes into the emergency department with a markedly swollen left hand. He relates a history that this has resulted from a series of injuries. He indicates that he first slammed his left thumb in the car door and then he fell injuring his hand further. He is vague on his history. Review of Systems Constitutional: denies: Fever Eyes: denies: Decreased vision Ears: denies: Ear pain Nose: denies: Congestion Throat: denies: Sore throat Respiratory: denies: Cough GI: denies: Vomiting PD PAST MEDICAL HISTORY - Past Medical History Past Medical History: Yes Cardiovascular: Hypertension, High cholesterol Respiratory: Sleep apnea, CPAP use Neuro: Other Endocrine/Autoimmune: None GI: GERD, Pancreatitis : Incontinence HEENT: None Psych: Depression, Anxiety, Panic attacks, Claustrophobia Musculoskeletal: Osteoarthritis Derm: None - Past Surgical History Past Surgical History: Yes Ortho: Hip replacement, Arthroscopic surgery HEENT: Tracheostomy - Present Medications Home Medications: Ambulatory Orders Medication Instructions Recorded Confirmed RX: Gabapentin 300 mg PO QPM 05/23/16 01/22/18 RX: Propranolol [Inderal] 60 mg PO BID 05/23/16 01/22/18 RX: Mirtazapine 7.5 mg PO QPM 08/28/16 01/22/18 RX: Folic Acid 1 mg PO DAILY #30 tablet 08/30/16 01/22/18 RX: Multivitamin [Theragran] 1 tab PO DAILYWM #30 tablet 08/30/16 01/22/18 RX: Omeprazole 20 mg PO QDAC 06/15/17 01/22/18 RX: buPROPion HCl [Bupropion HCl 200 mg PO DAILY 06/15/17 01/22/18 Sr] RX: hydrOXYzine pamoate 50 mg PO 0900,1600 06/15/17 01/22/18 [Hydroxyzine Pamoate] Lorazepam [Ativan] 1 mg PO TID #30 tablet 09/02/17 01/22/18 - Allergies Allergies/Adverse Reactions: Allergies Allergy/AdvReac Type Severity Reaction Status Date / Time lisinopril Allergy Mild Anaphylaxis Verified 01/22/18 13:25 - Living Situation Living Situation: reports: With family Living Arrangement: reports: At home - Social History Does the pt smoke?: No Smoking Status: Never smoker Does the pt drink ETOH?: Yes ETOH Use: Other (heavy troublesome alcohol use ) Does the pt have substance abuse?: Yes - Family History Family history: reports: CAD - Immunizations Immunizations are current?: Yes Immunizations: Other immun not current - POLST Patient has POLST: No POLST Status: DNR (pt clearly state to me it is DNR, Pt's mother at the bedside did not say no.) PD ED PE NORMAL - Vitals Vital signs reviewed: Yes (hypertensive ) - General General: 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, No acute distress, Well developed/nourished - HEENT HEENT: Atraumatic, PERRL, EOMI - Respiratory Respiratory: No respiratory distress - Derm Derm: Normal color, Warm and dry, No rash - Extremities Extremities: Other (There is significant swelling of the left hand with discoloration. There is pain to the proximal 2nd phlange and over the proximal thumb. ) - Neuro Neuro: 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, transactional attorney 2-12 intact, No motor deficit, No sensory deficit, Normal speech Eye Opening: Spontaneous Motor: Obeys Commands Verbal: Oriented GCS Score: 15 - Psych Psych: Normal mood, Normal affect Results - Vitals Vitals: Vital Signs - 24 hr 03/13/18 16:51 Temperature 36.5 C Heart Rate 88 Respiratory 19 Rate Blood Pressure 125/100 H O2 Saturation 100 Oxygen O2 Source Room air - Rads (name of study) right hand Radiology: Prelim report reviewed (Impression: 1. Transverse nondisplaced fracture of the left third distal phalanx tuft. 2. Comminuted proximal left second proximal phalanx diaphyseal fracture mild dorsal angulation. Fractures appear extra-articular. 3. Transverse, nondisplaced fracture at the proximal left second metacarpal diaphysis no significant angulation. 2. Possible fracture at the base of the proximal diaphysis of the left third metacarpal seen only on the oblique image. Correlate with for site of pain. 4. Soft tissue swelling. 5.No dislocation. Volar tilt of the lunate on the lateral view. Radiocarpal joint arthritis.), EMP read indepedently, See rad report Procedures - Splint (location) left hand Splint applied by: Tech Type of splint: Fiberglass, Volar cock up Other: Patient tolerated well, No complications, Neurovascular intact, Good alignment PD MEDICAL DECISION MAKING - ED course Complexity details: reviewed results, re-evaluated patient, considered di fferential, d/w patient ED course: 53 y/o male with a hand contusion and a vague history of how this happened has multiple fractures non-displaced and a lot of swelling. The color of the swelling indicates this injury happened in the time frame indicated by the patient. He is placed into a volar splint and we will encourage follow up with orthopedics. He is picked up by his mother. - Sepsis Event Vital Signs: Vital Signs - 24 hr 03/13/18 16:51 Temperature 36.5 C Heart Rate 88 Respiratory 19 Rate Blood Pressure 125/100 H O2 Saturation 100 Oxygen O2 Source Room air Departure - Departure Disposition: 01 Home, Self Care Clinical Impression: Hand fracture, left Condition: Stable Instructions: ED Fx Hand Closed Follow-Up: Shimon Cooper MD [Primary Care Provider] - [facility] [Provider Group] Discharge Date/Time: 03/13/18 18:45
--- NOTE | 2018-03-13 17:47 | XRAY Report ---
Reason: contusion and swelling pain over thumb Procedure Date: 03/13/2018 Accession Number: [id number] / [id number] Procedure: XR - Hand 3 View LT CPT Code: FULL RESULT: EXAM: LEFT HAND RADIOGRAPHY EXAM DATE: 03/13/2018 05:20 PM. CLINICAL HISTORY: Contusion and swelling, pain over thumb. COMPARISON: Hand 3 views, left 01/17/2016 4:31 PM. TECHNIQUE: 3 views. FINDINGS: Bones: Multiple fractures are noted includin. Transverse nondisplaced fracture of the left third distal phalanx tuft. No extension to the body or base. 2. Comminuted proximal left second proximal phalanx diaphyseal fracture with mild dorsal angulation. Fracture appears extra-articular. 3. Transverse, nondisplaced fracture of the proximal left second metacarpal diaphysis. 4. Questionable step-off at the base of the left third metacarpal seen only on oblique image. Joints: No dislocation. Volar tilt of the lunate. Degenerative disease in the radiocarpal joint. Soft Tissues: Left first finger, diffuse left hand and left second and third finger soft tissue swelling noted. No radiopaque foreign bodies are noted. IMPRESSION: 1. Transverse nondisplaced fracture of the left third distal phalanx tuft. 2. Comminuted proximal left second proximal phalanx diaphyseal fracture. Mild dorsal angulation. Fracture appears extra-articular. 3. Transverse, nondisplaced fracture at the proximal left second metacarpal diaphysis. No significant angulation. Possible fracture at the base of proximal diaphysis of the left third metacarpal seen only on the oblique image. Correlate for site of pain. 4. Soft tissue swelling. 5. No dislocation. Volar tilt of the lunate on the lateral view. Radiocarpal joint arthritis. RADIA
[2018-03-13] MEDS ORDERED: HYDROcod/ACET 5/325 Prepack 4 PO STA (18:26)
[2018-03-13 18:47] VITALS: BP 114/86
== END 2018-03-13 18:45 | disposition home or self-care (01) ==
LOC: ED 16:31
DX: S62.663A Nondisplaced fracture of distal phalanx of left middle finger, initial encounter for closed fracture (principal); S62.641A Nondisplaced fracture of proximal phalanx of left index finger, initial encounter for closed fracture; W22.09XA Striking against other stationary object, initial encounter; Y92.009 Unspecified place in unspecified non-institutional (private) residence as the place of occurrence of the external cause
CPT/HCPCS: 29125; 99283

== ENCOUNTER 2018-03-26 17:20 | Outpatient (CLI) | payer MEDICARE, MEDICAID | END 2018-03-26 17:21 | disposition critical access hospital (66) | LOC: EMS 17:20 | PROVIDERS: ATTEND Surgery | DX: R45.851 Suicidal ideations (principal) | CPT/HCPCS: A0425; A0429 ==

== ENCOUNTER 2018-03-26 17:42 | Emergency (ER) | payer MEDICARE, MEDICAID ==
[2018-03-26 17:54] VITALS: BP 122/96
[2018-03-26 18:02] LABS: BASOPHILS % (AUTO) 0.8 %; EOSINOPHILS # (AUTO) 0.2 10^3/uL (0.0-0.7); EOSINOPHILS % (AUTO) 4.1 %; HGB - HEMOGLOBIN 13.7 g/dL (14.0-18.0); LYMPHOCYTES # (AUTO) 1.8 10^3/uL (1.5-3.5); LYMPHOCYTES % (AUTO) 43.5 %; MEAN CORPUSCULAR HEMOGLOBIN 33.4 pg (27.0-31.0); MEAN CORPUSCULAR HGB CONC 33.3 g/dL (32.0-36.0); MEAN CORPUSCULAR VOLUME 100.5 fL (80.0-94.0); MEAN PLATELET VOLUME 6.8 fL (7.4-11.4); MONOCYTES # (AUTO) 0.6 10^3/uL (0.0-1.0); MONOCYTES % (AUTO) 14.4 %; NEUTROPHILS # (AUTO) 1.5 10^3/uL (1.5-6.6); NEUTROPHILS % (AUTO) 37.2 %; PLT - PLATELET COUNT 249 10^3/uL (130-450); RED BLOOD COUNT 4.09 10^6/uL (4.70-6.10); RED CELL DISTRIBUTION WIDTH 13.3 % (12.0-15.0); WHITE BLOOD COUNT 4.1 x10^3/uL (4.8-10.8)
[2018-03-26 18:18] LABS: ACETAMINOPHEN < 10 ug/mL (10-30); ALBUMIN 4.2 g/dL (3.2-5.5); ALBUMIN/GLOBULIN RATIO 1.4 (1.0-2.2); ALKALINE PHOSPHATASE 116 IU/L (42-121); ALT ALANINE AMINOTRANSFERASE 55 IU/L (10-60); AST ASPARTATE AMINOTRANSFERASE 67 IU/L (10-42); BILIRUBIN,TOTAL 0.6 mg/dL (0.2-1.0); BUN - BLOOD UREA NITROGEN 10 mg/dL (6-20); CARBON DIOXIDE - CO2 30 mmol/L (21-32); CHLORIDE 101 mmol/L (101-111); CREATININE 0.7 mg/dL (0.6-1.2); GFR - MDRD 118 (>89); GLUCOSE 85 mg/dL (70-100); LIPASE 45 U/L (22-51); SALICYLATE < 6.0 mg/dL; SODIUM 141 mmol/L (135-145); TOTAL PROTEIN 7.2 g/dL (6.7-8.2)
--- NOTE | 2018-03-26 18:30 | ED Physician Documentation ---
History of Present Illness - Stated complaint Stated Complaint: SI - Chief complaint Chief Complaint: MHE - History obtained from History obtained from: Patient, EMS - History of Present Illness Timing: Today Pain level max: 3 Pain level now: 3 Improved by: nothing Worsened by: nothing - Additonal information Additional information: Patient is a 53-year-old male who was intoxicated tonight. His mother called the ambulance for intoxication. He stated that he felt suicidal but did not have a plan and that he was not going to harm himself. Has an appointment with his counselor and psychiatrist coming up. Denies any suicidal ideation to me He also states that he hit his broken hand and it was hurting. He did not fall and strike his head. No headache. No neck or back pain. He is a chronic alcoholic. Review of Systems Constitutional: denies: Fever, Chills Ears: denies: Ear pain Nose: denies: Rhinorrhea / runny nose, Congestion Throat: denies: Sore throat Cardiac: denies: Chest pain / pressure Respiratory: denies: Cough GI: denies: Abdominal Pain, Nausea, Vomiting, Diarrhea : denies: Dysuria, Now EGA Skin: denies: Rash Musculoskeletal: denies: Neck pain, Back pain Neurologic: denies: Headache PD PAST MEDICAL HISTORY - Past Medical History Past Medical History: Yes Cardiovascular: Hypertension, High cholesterol Respiratory: Sleep apnea, CPAP use Neuro: Other Endocrine/Autoimmune: None GI: GERD, Pancreatitis : Incontinence HEENT: None Psych: Depression, Anxiety, Panic attacks, Claustrophobia Musculoskeletal: Osteoarthritis Derm: None - Past Surgical History Past Surgical History: Yes Ortho: Hip replacement, Arthroscopic surgery HEENT: Tracheostomy - Present Medications Home Medications: Ambulatory Orders Medication Instructions Recorded Confirmed Gabapentin 300 mg PO QPM 05/23/16 01/22/18 Propranolol [Inderal] 60 mg PO BID 05/23/16 01/22/18 Mirtazapine 7.5 mg PO QPM 08/28/16 01/22/18 Folic Acid 1 mg PO DAILY #30 tablet 08/30/16 01/22/18 Multivitamin [Theragran] 1 tab PO DAILYWM #30 tablet 08/30/16 01/22/18 Omeprazole 20 mg PO QDAC 06/15/17 01/22/18 buPROPion HCl [Bupropion HCl Sr] 200 mg PO DAILY 06/15/17 01/22/18 hydrOXYzine pamoate [Hydroxyzine 50 mg PO 0900,1600 06/15/17 01/22/18 Pamoate] Lorazepam [Ativan] 1 mg PO TID #30 tablet 09/02/17 01/22/18 - Allergies Allergies/Adverse Reactions: Allergies Allergy/AdvReac Type Severity Reaction Status Date / Time lisinopril Allergy Mild Anaphylaxis Verified 01/22/18 13:25 - Social History Does the pt smoke?: No Smoking Status: Never smoker Does the pt drink ETOH?: Yes Does the pt have substance abuse?: Yes - Immunizations Immunizations are current?: Yes Immunizations: Other immun not current - POLST Patient has POLST: No POLST Status: DNR (pt clearly state to me it is DNR, Pt's mother at the bedside did not say no.) PD ED PE NORMAL - Vitals Vital signs reviewed: Yes - General General: 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, No acute distress - HEENT HEENT: Moist mucous membranes - Neck Neck: Supple, no meningeal sign - Cardiac Cardiac: RRR, Strong equal pulses - Respiratory Respiratory: No respiratory distress, Clear bilaterally - Abdomen Abdomen: Soft, Non tender, Non distended - Derm Derm: Warm and dry - Extremities Extremities: Other (L hand - in a splint. mild swelling. ) - Neuro Neuro: 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 - Psych Psych: Normal mood, Normal affect Results - Vitals Vitals: Vital Signs - 24 hr 03/26/18 17:49 Temperature 36.5 C Heart Rate 65 Respiratory 14 Rate Blood Pressure 122/96 H O2 Saturation 96 Oxygen O2 Source Room air - Labs Labs: Laboratory Tests 03/26/18 03/26/18 03/26/18 17:55 17:55 17:55 WBC 4.1 L RBC 4.09 L Hgb 13.7 L Hct 41.1 L MCV 100.5 H MCH 33.4 H MCHC 33.3 RDW 13.3 Plt Count 249 MPV 6.8 L Neut # (Auto) 1.5 Lymph # (Auto) 1.8 Tift # (Auto) 0.6 Eos # (Auto) 0.2 Baso # (Auto) 0.0 Absolute Nucleated RBC 0.01 Nucleated RBC % 0.2 Sodium 141 Potassium 4.1 Chloride 101 Carbon Dioxide 30 Anion Gap 10.0 BUN 10 Creatinine 0.7 Estimated GFR (MDRD) 118 Glucose 85 Calcium 9.0 Total Bilirubin 0.6 AST 67 H ALT 55 Alkaline Phosphatase 116 Total Protein 7.2 Albumin 4.2 Globulin 3.0 Albumin/Globulin Ratio 1.4 Lipase 45 TSH 1.42 Urine Color Urine Clarity Urine pH Ur Specific [place] Urine Protein Urine Glucose (UA) Urine Ketones Urine Occult Blood Urine Nitrite Urine Bilirubin Urine Urobilinogen Ur Leukocyte Esterase Ur Microscopic Review Urine Culture Comments Urine HCG, Qual Salicylates < 6.0 Urine Opiates Screen Ur Oxycodone Screen Urine Methadone Screen Ur Propoxyphene Screen Acetaminophen < 10 L Ur Barbiturates Screen Ur Tricyclics Screen Ur Phencyclidine Scrn Ur Amphetamine Screen U Methamphetamines Scrn U Benzodiazepines Scrn Urine Cocaine Screen U Cannabinoids Screen Ethyl Alcohol 358.6 03/26/18 03/26/18 19:15 19:15 WBC RBC Hgb Hct MCV MCH MCHC RDW Plt Count MPV Neut # (Auto) Lymph # (Auto) Tift # (Auto) Eos # (Auto) Baso # (Auto) Absolute Nucleated RBC Nucleated RBC % Sodium Potassium Chloride Carbon Dioxide Anion Gap BUN Creatinine Estimated GFR (MDRD) Glucose Calcium Total Bilirubin AST ALT Alkaline Phosphatase Total Protein Albumin Globulin Albumin/Globulin Ratio Lipase TSH Urine Color YELLOW Urine Clarity CLEAR Urine pH 7.0 Ur Specific [place] <=1.005 Urine Protein NEGATIVE Urine Glucose (UA) NEGATIVE Urine Ketones NEGATIVE Urine Occult Blood NEGATIVE Urine Nitrite NEGATIVE Urine Bilirubin NEGATIVE Urine Urobilinogen 0.2 (NORMAL) Ur Leukocyte Esterase NEGATIVE Ur Microscopic Review NOT INDICATED Urine Culture Comments NOT INDICATED Urine HCG, Qual Cancelled Salicylates Urine Opiates Screen NEGATIVE Ur Oxycodone Screen NEGATIVE Urine Methadone Screen NEGATIVE Ur Propoxyphene Screen NEGATIVE Acetaminophen Ur Barbiturates Screen NEGATIVE Ur Tricyclics Screen NEGATIVE Ur Phencyclidine Scrn NEGATIVE Ur Amphetamine Screen NEGATIVE U Methamphetamines Scrn NEGATIVE U Benzodiazepines Scrn POSITIVE H Urine Cocaine Screen NEGATIVE U Cannabinoids Screen NEGATIVE Ethyl Alcohol PD MEDICAL DECISION MAKING - ED course Complexity details: reviewed results, re-evaluated patient, considered differential, d/w patient ED course: Patient is a 53-year-old male with alcohol intoxication and vague suicidal ideation earlier. He now denies being suicidal. Has no plan and states that he would not kill himself. He is ambulating with a steady gait, clear speech. Is a chronic alcoholic. No acute laboratory findings. He request to go home at this time. Patient counseled regarding signs and symptoms for which I believe and urgent re-evaluation would be necessary. Patient with good understanding of and agreement to plan and is comfortable going home at this time This document was made in part using voice recognition software. While efforts are made to proofread this document, sound alike and grammatical errors may occur. Departure - Departure Disposition: 01 Home, Self Care Clinical Impression: Alcohol intoxication Qualifiers: Complication of substance-induced condition: uncomplicated Qualified Code(s): F10.920 - Alcohol use, unspecified with intoxication, uncomplicated Condition: Good Instructions: ED Alcohol Intoxication Follow-Up: Shimon Cooper MD [Primary Care Provider] - Within 3 Days Comments: Return if you worsen. Crisis Line and is available to talk to someone [email or web address] is also available to chat with someone online if you prefer. There are also many resources on this website and apps for your phone to help with your mental health You can also text the word START to [phone] to chat with someome via text. Discharge Date/Time: 03/26/18 20:58
[2018-03-26 19:33] LABS: BILIRUBIN,URINE NEGATIVE (NEGATIVE); CLARITY,URINE CLEAR (CLEAR); GLUCOSE, URINE (UA) NEGATIVE (NEGATIVE); KETONES,URINE (UA) NEGATIVE (NEGATIVE); LEUKOCYTE ESTERASE, URINE NEGATIVE (NEGATIVE); NITRITE,URINE NEGATIVE (NEGATIVE); OCCULT BLOOD,URINE NEGATIVE (NEGATIVE); PROTEIN,URINE NEGATIVE (NEGATIVE); UROBILINOGEN,URINE 0.2 (NORMAL) E.U./dL (NORMAL)
[2018-03-26 20:16] LABS: MUDS CUTOFF CONCENTRATIONS CUTOFF CONC BELOW:
[2018-03-26 20:33] LABS: AMPHETAMINE SCREEN,URINE NEGATIVE (NEGATIVE); BENZODIAZEPINES SCREEN, URINE POSITIVE (NEGATIVE); COCAINE SCREEN URINE NEGATIVE (NEGATIVE); METHADONE SCREEN, URINE NEGATIVE (NEGATIVE); METHAMPHETAMINES SCREEN, URINE NEGATIVE (NEGATIVE); OPIATE SCREEN, URINE NEGATIVE (NEGATIVE); OXYCODONE SCREEN, URINE NEGATIVE (NEGATIVE); PROPOXYPHENE SCREEN, URINE NEGATIVE (NEGATIVE); TRICYCLIC ANTIDEPRESSANT,URINE NEGATIVE (NEGATIVE)
== END 2018-03-26 20:58 | disposition home or self-care (01) ==
LOC: EDUNIT# → ED 17:42
DX: F10.229 Alcohol dependence with intoxication, unspecified (principal); I10 Essential (primary) hypertension
CPT/HCPCS: 36415; 80053; 80306; 80307; 80320; 80329; 81001; 81003; 81025; 83690; 84443; 85025; 87086; 93005; 99283

== ENCOUNTER 2018-04-30 13:58 | Outpatient (CLI) | payer MEDICARE, MEDICAID ==
--- NOTE | 2018-04-30 15:13 | XRAY Report ---
Reason: PAIN AND SWELLING L HAND FX Procedure Date: 04/30/2018 Accession Number: [id number] / [id number] Procedure: XR - Hand 3 View LT CPT Code: FULL RESULT: EXAM: LEFT HAND RADIOGRAPHY EXAM DATE: 04/30/2018 02:10 PM. CLINICAL HISTORY: Pain and swelling left hand, fracture. COMPARISON: Hand 3 views left 03/13/2018 5:09 PM. TECHNIQUE: 3 views. FINDINGS: Again seen is a fracture of the proximal second metacarpal with mild angulation and dorsal angulation of the distal fragment, as well as intra-articular extension. Alignment is similar to before. IMPRESSION: Redemonstration of known fracture. RADIA
== END 2018-04-30 13:59 | disposition home or self-care (01) ==
LOC: DI 13:58
PROVIDERS: ATTEND Family Medicine
DX: S62.391D Other fracture of second metacarpal bone, left hand, subsequent encounter for fracture with routine healing (principal)

== ENCOUNTER 2018-05-28 19:29 | Outpatient (CLI) | payer MEDICARE, MEDICAID | END 2018-05-28 19:30 | disposition critical access hospital (66) | LOC: EMS 19:29 | PROVIDERS: ATTEND Surgery | DX: M25.561 Pain in right knee (principal); W18.30XA Fall on same level, unspecified, initial encounter; Y92.481 Parking lot as the place of occurrence of the external cause | CPT/HCPCS: A0425; A0429 ==

== ENCOUNTER 2018-05-28 19:43 | Emergency (ER) | payer MEDICARE, MEDICAID ==
--- NOTE | 2018-05-28 19:56 | ED Physician Documentation ---
PD HPI LOWER EXT INJURY - Stated complaint Stated Complaint: FALL/ETOH - History obtained from History obtained from: Patient, EMS - History of Present Illness PD HPI LOW EXT INJURY LOCATION: Right, Knee, Ankle Type of injury: Fall (This is a 53-year-old gentleman with problems with alcoholism. He was drunk because he got a bad email from his girlfriend/fianc. He was in the [employer] parking lot and lost his balance and fell forward. Per EMS multiple bystanders sought and there are short that he did not hit his head, he just came down on his right knee. He also hurt his ankle. No other injuries. He has been ambulatory. [facility] deputy or police department were on scene and per report they did a breathalyzer which was 0.299.) Review of Systems Ten Systems: 10 systems reviewed and negative Nose: reports: Reviewed and negative Cardiac: reports: Reviewed and negative PD PAST MEDICAL HISTORY - Past Medical History Cardiovascular: Hypertension, High cholesterol Respiratory: Sleep apnea, CPAP use Neuro: Other Endocrine/Autoimmune: None GI: GERD, Pancreatitis : Incontinence HEENT: None Psych: Depression, Anxiety, Panic attacks, Claustrophobia Musculoskeletal: Osteoarthritis Derm: None - Past Surgical History Past Surgical History: Yes Ortho: Hip replacement, Arthroscopic surgery HEENT: Tracheostomy - Present Medications Home Medications: Ambulatory Orders Medication Instructions Recorded Confirmed Gabapentin 300 mg PO QPM 05/23/16 01/22/18 Propranolol [Inderal] 60 mg PO BID 05/23/16 01/22/18 Mirtazapine 7.5 mg PO QPM 08/28/16 01/22/18 Folic Acid 1 mg PO DAILY #30 tablet 08/30/16 01/22/18 Multivitamin [Theragran] 1 tab PO DAILYWM #30 tablet 08/30/16 01/22/18 Omeprazole 20 mg PO QDAC 06/15/17 01/22/18 buPROPion HCl [Bupropion HCl Sr] 200 mg PO DAILY 06/15/17 01/22/18 hydrOXYzine pamoate [Hydroxyzine 50 mg PO 0900,1600 06/15/17 01/22/18 Pamoate] Lorazepam [Ativan] 1 mg PO TID #30 tablet 09/02/17 01/22/18 - Allergies Allergies/Adverse Reactions: Allergies Allergy/AdvReac Type Severity Reaction Status Date / Time lisinopril Allergy Mild Anaphylaxis Verified 01/22/18 13:25 - Social History Does the pt smoke?: No Smoking Status: Never smoker Does the pt drink ETOH?: Yes Does the pt have substance abuse?: Yes - Immunizations Immunizations are current?: Yes Immunizations: Other immun not current - POLST Patient has POLST: No POLST Status: DNR (pt clearly state to me it is DNR, Pt's mother at the bedside did not say no.) PD ED PE NORMAL - Vitals Vital signs reviewed: Yes - General General: 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, No acute distress, Other (Slow slurred speech) - HEENT HEENT: PERRL (Bloodshot eyes) - Neck Neck: Supple, no meningeal sign, No bony TTP - Cardiac Cardiac: RRR, No murmur - Respiratory Respiratory: No respiratory distress, Clear bilaterally - Back Back: No spinal TTP - Extremities Extremities: Other (Mild tenderness of both lateral and medial joint lines of the right knee with and or deformity. Full range of motion. He also has mild tenderness of both sides of the right ankle without Deformity..) - Neuro Neuro: 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, Normal speech Results - Vitals Vitals: Vital Signs - 24 hr 05/28/18 19:54 Temperature 36.3 C L Heart Rate 75 Respiratory 16 Rate Blood Pressure 146/95 H O2 Saturation 98 Oxygen O2 Source Room air - Labs Labs: Laboratory Tests 05/28/18 05/28/18 05/28/18 21:38 21:38 21:38 WBC 3.7 L RBC 4.04 L Hgb 13.5 L Hct 40.1 L MCV 99.2 H MCH 33.4 H MCHC 33.7 RDW 14.3 Plt Count 132 MPV 7.5 Neut # (Auto) 1.4 L Lymph # (Auto) 1.6 [place] # (Auto) 0.5 Eos # (Auto) 0.1 Baso # (Auto) 0.0 Absolute Nucleated RBC 0.00 Nucleated RBC % 0.1 PT 12.2 INR 1.1 Sodium 145 Potassium 3.7 Chloride 104 Carbon Dioxide 28 Anion Gap 13.0 BUN 10 Creatinine 0.7 Estimated GFR (MDRD) 118 Glucose 93 Calcium 8.9 Total Bilirubin 0.8 AST 71 H ALT 52 Alkaline Phosphatase 111 Total Protein 7.3 Albumin 4.1 Globulin 3.2 Albumin/Globulin Ratio 1.3 Lipase 68 H PD MEDICAL DECISION MAKING - ED course ED course: After initial evaluation and was called back in the room. He said he had had a seizure, he says he was flopping all over but remembers at all and was ictal. So I think a seizure was unlikely. Especially since at that point his blood alcohol was probably still 250 based on average metabolism. He did note that for some time, he could not really put a specific timeframe on it he had upper abdominal pain. On examination there he did actually have kind of a linear ecchymosis over the right upper quadrant and was quite tender so a CT was ordered. He says he did fall may be a week ago and thinks he remember hitting his abdominal wall there. I personally placed a 20-gauge IV in the right dorsal wrist after ChloraPrep whi ch flushed and leora well. I personally viewed the CT which to my eye shows no evidence of intra-abdominal trauma. He does here appear to have cirrhosis. Care to Dr. Orellana at shift change, 11 PM to follow-up on the CT read. The patient would like to stay in the emergency department and talk with secondary social studies teacher about detox options in the morning. He requested admission but there is no admission criteria present at this time. Departure - Departure Clinical Impression: Alcohol intoxication Qualifiers: Complication of substance-induced condition: uncomplicated Qualified Code(s): F10.920 - Alcohol use, unspecified with intoxication, uncomplicated Abdominal contusion Qualifiers: Encounter type: initial encounter Qualified Code(s): S30.1XXA - Contusion of abdominal wall, initial encounter Contusion of right knee Qualifiers: Encounter type: initial encounter Qualified Code(s): S80.01XA - Contusion of right knee, initial encounter Contusion of right ankle Qualifiers: Encounter type: initial encounter Qualified Code(s): S90.01XA - Contusion of right ankle, initial encounter Condition: Stable Record reviewed to determine appropriate education?: Yes Instructions: ED Sprain Knee Comments: STOP DRINKING ALCOHOL
--- NOTE | 2018-05-28 20:48 | XRAY Report ---
Reason: knee ankle inj/fall Procedure Date: 05/28/2018 Accession Number: [id number] / [id number] Procedure: XR - Knee 4 View RT CPT Code: FULL RESULT: EXAM: RIGHT KNEE RADIOGRAPHY EXAM DATE: 05/28/2018 08:05 PM. CLINICAL HISTORY: Knee ankle injury /fall. Multiple falls past couple of days. COMPARISON: KNEE 4 VIEW RT 04/16/2017 1:42 PM. TECHNIQUE: 5 views. FINDINGS: No acute fracture or dislocation is seen. Alignment is within normal limits. No subluxation. No effusion. No significant degenerative joint disease. There appears to be anterior knee soft tissue swelling. IMPRESSION: There appears to be anterior knee soft tissue swelling. No acute fracture is seen. RADIA
--- NOTE | 2018-05-28 20:50 | XRAY Report ---
Reason: knee ankle inj/fall Procedure Date: 05/28/2018 Accession Number: [id number] / [id number] Procedure: XR - Ankle 3 View RT CPT Code: FULL RESULT: EXAM: RIGHT ANKLE RADIOGRAPHY EXAM DATE: 05/28/2018 08:05 PM. CLINICAL HISTORY: Knee ankle inj/fall. Multiple falls past few days. COMPARISON: ANKLE 3 VIEW RT 04/16/2017 1:42 PM. TECHNIQUE: 3 views. FINDINGS: No subluxation. Chronic bony deformity seen at the lateral aspect of the distal tibia. No evidence for acute fracture. Mild lateral and anterior ankle soft tissue swelling. IMPRESSION: No evidence for acute fracture. Mild lateral and anterior ankle soft tissue swelling. RADIA
[2018-05-28] MEDS ORDERED: IOVERSOL 320 100 ML VIAL IVP ONE (21:39)
[2018-05-28 21:44] LABS: BASOPHILS % (AUTO) 0.9 %; EOSINOPHILS # (AUTO) 0.1 10^3/uL (0.0-0.7); EOSINOPHILS % (AUTO) 2.4 %; HGB - HEMOGLOBIN 13.5 g/dL (14.0-18.0); LYMPHOCYTES # (AUTO) 1.6 10^3/uL (1.5-3.5); LYMPHOCYTES % (AUTO) 44.3 %; MEAN CORPUSCULAR HEMOGLOBIN 33.4 pg (27.0-31.0); MEAN CORPUSCULAR HGB CONC 33.7 g/dL (32.0-36.0); MEAN CORPUSCULAR VOLUME 99.2 fL (80.0-94.0); MEAN PLATELET VOLUME 7.5 fL (7.4-11.4); MONOCYTES # (AUTO) 0.5 10^3/uL (0.0-1.0); MONOCYTES % (AUTO) 14.3 %; NEUTROPHILS # (AUTO) 1.4 10^3/uL (1.5-6.6); NEUTROPHILS % (AUTO) 38.1 %; PLT - PLATELET COUNT 132 10^3/uL (130-450); RED BLOOD COUNT 4.04 10^6/uL (4.70-6.10); RED CELL DISTRIBUTION WIDTH 14.3 % (12.0-15.0); WHITE BLOOD COUNT 3.7 x10^3/uL (4.8-10.8)
[2018-05-28 22:06] LABS: ALBUMIN 4.1 g/dL (3.2-5.5); ALBUMIN/GLOBULIN RATIO 1.3 (1.0-2.2); BILIRUBIN,TOTAL 0.8 mg/dL (0.2-1.0); CALCIUM 8.9 mg/dL (8.5-10.3); CREATININE 0.7 mg/dL (0.6-1.2); TOTAL PROTEIN 7.3 g/dL (6.7-8.2)
[2018-05-28 22:38] LABS: INR 1.1 (0.8-1.2); PT - PROTHROMBIN TIME 12.2 secs (9.9-12.6)
[2018-05-28] MEDS: IOVERSOL 320 100 ML VIAL IVP ONE (22:44)
--- NOTE | 2018-05-28 23:19 | CT Report ---
Reason: IV only, upper abd pain with ecchymosis Procedure Date: 05/28/2018 Accession Number: [id number] / [id number] Procedure: CT - Abdomen/Pelvis W/ CPT Code: FULL RESULT: EXAM: CT ABDOMEN AND PELVIS EXAM DATE: 05/28/2018 10:32 PM. CLINICAL HISTORY: Abdominal pain with ecchymosis. COMPARISONS: ABDOMEN/PELVIS W/ 09/20/2017 11:56 PM. TECHNIQUE: Routine helical CT imaging was performed through the abdomen and pelvis. IV contrast: Optiray 320, 100 cc. Enteric contrast: No. Reconstructions: Coronal and sagittal. In accordance with CT protocol optimization, one or more of the following dose reduction techniques were utilized for this exam: automated exposure control, adjustment of mA and/or KV based on patient size, or use of iterative reconstructive technique. FINDINGS: Lung Bases: Unremarkable. Liver: Fatty infiltration. Gallbladder/Bile Ducts: Unremarkable. Spleen: Normal. Pancreas: Normal. Adrenal Glands: Normal. Kidneys: Normal. No masses or hydronephrosis. Peritoneal Cavity/Bowel: No bowel obstruction seen. No diverticulitis. There may be some colonic diverticula. No free air or free fluid. No lymphadenopathy. Appendix appears normal. Pelvic Organs: Streak artifact. Decompressed urinary bladder with mild wall thickening. Vasculature: No aneurysms or other significant abnormality. Bones: Right hip prosthesis. Fluid collection again seen about the right hip, decreased in size compared with the prior exam. Lucency again seen about the stem, possibly representing loosening or infection. Old rib fractures. Other: None. IMPRESSION: 1. Fatty liver. 2. Urinary bladder wall thickening which may be due to nondistention. Cystitis not entirely excluded. 3. No appendicitis or diverticulitis. 4. Right hip prosthesis. Fluid collection again seen at the hip, somewhat decreased in size compared with the prior CT. 5. Large amount of lucency about the prosthesis stem which could represent infection or loosening. RADIA
[2018-05-29] MEDS: LORazepam 0.5 MG TABLET PO STA (00:01)
[2018-05-29 00:02] VITALS: BP 139/107
--- NOTE | 2018-05-29 00:08 | ED Physician Documentation ---
ED Addendum - Addendum Addendum: 05/29/18 00:04 Received sign out from Dr. Parks at the end of his shift, CT A/P pending. After CT resulted, I d/w patient the results (no significant, acute findings although I explained the concern regarding loosening of the right hip prosthesis. History and exam are not s/o infectious process). Patient is ambulating around room without difficulty or apparent discomfort. He requests ativan for anxiety and withdrawals. He is not tremulous, but based on patient's history of heavy, regular alcohol use and withdrawals, it is reasonable to give PO ativan at this time anticipating some withdrawal. He is awake, alert, conversant, and appropriate. He declines social work consult; he says he plans to make calls in the morning to try to find a social service technician or a detox facility. He denies SI and knows he can return at any time he wants to be reevaluated.
== END 2018-05-29 00:20 | disposition home or self-care (01) ==
LOC: EDUNIT# → ED 19:43
DX: F10.920 Alcohol use, unspecified with intoxication, uncomplicated (principal); S30.1XXA Contusion of abdominal wall, initial encounter; S80.01XA Contusion of right knee, initial encounter; S90.01XA Contusion of right ankle, initial encounter; W18.30XA Fall on same level, unspecified, initial encounter; Y92.481 Parking lot as the place of occurrence of the external cause; I10 Essential (primary) hypertension; E78.00 Pure hypercholesterolemia, unspecified; Z96.641 Presence of right artificial hip joint; F41.9 Anxiety disorder, unspecified
CPT/HCPCS: 36410; 36415; 73564; 73610; 74177; 80053; 83690; 85025; 85610; 99283; A9270; Q9967

== ENCOUNTER 2018-06-19 16:26 | Outpatient (CLI) | payer MEDICARE, MEDICAID | END 2018-06-19 16:27 | disposition critical access hospital (66) | LOC: EMS 16:26 | PROVIDERS: ATTEND Surgery | DX: F32.9 Major depressive disorder, single episode, unspecified (principal) | CPT/HCPCS: A0425; A0429 ==

== ENCOUNTER 2018-06-19 16:44 | Emergency (ER) | payer MEDICARE, MEDICAID ==
--- NOTE | 2018-06-19 16:48 | ED Physician Documentation ---
PD HPI OVERDOSE - Stated complaint Stated Complaint: ETOH - History obtained from History obtained from: Patient, EMS - History of Present Illness Timing - onset: Today (Brought in by ambulance for alcoholism. I guess he has been on a garcia for the last 2 weeks. No trauma or suicidal ideation. He is quite intoxicated on arrival but at least initially is willing to consider detox.) Review of Systems Unable to obtain: Confused PD PAST MEDICAL HISTORY - Present Medications Home Medications: Ambulatory Orders Medication Instructions Recorded Confirmed RX: Gabapentin 300 mg PO QPM 05/23/16 01/22/18 RX: Propranolol [Inderal] 60 mg PO BID 05/23/16 01/22/18 RX: Mirtazapine 7.5 mg PO QPM 08/28/16 01/22/18 RX: Folic Acid 1 mg PO DAILY #30 tablet 08/30/16 01/22/18 RX: Multivitamin [Theragran] 1 tab PO DAILYWM #30 tablet 08/30/16 01/22/18 RX: Omeprazole 20 mg PO QDAC 06/15/17 01/22/18 RX: buPROPion HCl [Bupropion HCl 200 mg PO DAILY 06/15/17 01/22/18 Sr] RX: hydrOXYzine pamoate 50 mg PO 0900,1600 06/15/17 01/22/18 [Hydroxyzine Pamoate] Lorazepam [Ativan] 1 mg PO TID #30 tablet 09/02/17 01/22/18 - Allergies Allergies/Adverse Reactions: Allergies Allergy/AdvReac Type Severity Reaction Status Date / Time lisinopril Allergy Mild Anaphylaxis Verified 06/19/18 16:55 PD ED PE NORMAL - Vitals Vital signs reviewed: Yes - General General: No acute distress, Other (Slow slurred speech, lots of nystagmus and bloodshot eyes) - Neck Neck: Supple, no meningeal sign, No bony TTP - Cardiac Cardiac: RRR, No murmur - Respiratory Respiratory: No respiratory distress, Clear bilaterally - Abdomen Abdomen: Normal bowel sounds, Soft, Non tender - Back Back: No CVA TTP, No spinal TTP - Derm Derm: Normal color, Warm and dry - Extremities Extremities: No edema, No calf tenderness / cord - 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, Normal speech Eye Opening: Spontaneous Motor: Obeys Commands Verbal: Confused GCS Score: 14 - Psych Psych: Normal mood, Normal affect Results - Vitals Vitals: Vital Signs - 24 hr 06/19/18 16:53 Temperature 36 C L Heart Rate 75 Respiratory 20 Rate Blood Pressure 132/103 H O2 Saturation 93 Oxygen O2 Source Room air - Labs Labs: Laboratory Tests 06/19/18 06/19/18 06/19/18 17:00 17:00 17:00 WBC 4.3 L RBC 4.20 L Hgb 14.0 Hct 41.8 L MCV 99.5 H MCH 33.4 H MCHC 33.6 RDW 14.7 Plt Count 132 MPV 7.8 Neut # (Auto) 1.3 L Lymph # (Auto) 2.2 [place] # (Auto) 0.6 Eos # (Auto) 0.2 Baso # (Auto) 0.1 Absolute Nucleated RBC 0.00 Nucleated RBC % 0.1 PT 11.5 INR 1.0 Sodium 141 Potassium 4.3 Chloride 101 Carbon Dioxide 24 Anion Gap 16.0 H BUN 18 Creatinine 0.7 Estimated GFR (MDRD) 118 Glucose 82 Calcium 9.0 Total Bilirubin 0.9 AST 104 H ALT 69 H Alkaline Phosphatase 119 Total Protein 7.6 Albumin 4.3 Globulin 3.3 Albumin/Globulin Ratio 1.3 Lipase 89 H TSH Salicylates < 6.0 Urine Opiates Screen Ur Oxycodone Screen Urine Methadone Screen Ur Propoxyphene Screen Acetaminophen < 10 L Ur Barbiturates Screen Ur Tricyclics Screen Ur Phencyclidine Scrn Ur Amphetamine Screen U Methamphetamines Scrn U Benzodiazepines Scrn Urine Cocaine Screen U Cannabinoids Screen Ethyl Alcohol 460.7 06/19/18 06/19/18 17:00 19:25 WBC RBC Hgb Hct MCV MCH MCHC RDW Plt Count MPV Neut # (Auto) Lymph # (Auto) [place] # (Auto) Eos # (Auto) Baso # (Auto) Absolute Nucleated RBC Nucleated RBC % PT INR Sodium Potassium Chloride Carbon Dioxide Anion Gap BUN Creatinine Estimated GFR (MDRD) Glucose Calcium Total Bilirubin AST ALT Alkaline Phosphatase Total Protein Albumin Globulin Albumin/Globulin Ratio Lipase TSH 1.24 Salicylates Urine Opiates Screen NEGATIVE Ur Oxycodone Screen NEGATIVE Urine Methadone Screen NEGATIVE Ur Propoxyphene Screen NEGATIVE Acetaminophen Ur Barbiturates Screen NEGATIVE Ur Tricyclics Screen NEGATIVE Ur Phencyclidine Scrn NEGATIVE Ur Amphetamine Screen NEGATIVE U Methamphetamines Scrn NEGATIVE U Benzodiazepines Scrn POSITIVE H Urine Cocaine Screen NEGATIVE U Cannabinoids Screen NEGATIVE Ethyl Alcohol - Rads (name of study) Ct Head/Cspine Radiology: EMP read contemporaneously (NAD) PD MEDICAL DECISION MAKING - ED course ED course: 53-year-old gentleman presents by ambulance called by his mother for altered mental status due to alcohol. Possibly polypharmacy but his blood alcohol should be explanatory given that it is 460. There is no evidence of trauma. Initial plan was to keep him overnight for social work evaluation for potential detox in the morning. He should be sober around 9 AM. About 6 PM he tried to get up out of bed and fell he hit his head. There is no loss of consciousness and no obvious sign of trauma but CTs were ordered. These were negative. Over the next few hours he became increasingly belligerent and demanding for lorazepam. I discussed with him that there is no way possible that he is already in alcohol withdrawal given the height of his blood alcohol level. In fact I felt it would be unsafe to give him any lorazepam given that blood alcohol level. Eventually he became unsatisfied with this and ambulated out of the department. He was not formally discharged, but instead eloped. Departure - Departure Disposition: ED Elope Clinical Impression: Alcohol intoxication, Head injury Discharge Date/Time: 06/19/18 20:56
[2018-06-19] MEDS ORDERED: THIAMINE 100 MG TABLET PO STA (16:49)
[2018-06-19 16:56] VITALS: BP 132/103
[2018-06-19 17:06] LABS: BASOPHILS # (AUTO) 0.1 10^3/uL (0.0-0.1); BASOPHILS % (AUTO) 1.2 %; EOSINOPHILS # (AUTO) 0.2 10^3/uL (0.0-0.7); EOSINOPHILS % (AUTO) 5.4 %; LYMPHOCYTES # (AUTO) 2.2 10^3/uL (1.5-3.5); LYMPHOCYTES % (AUTO) 49.8 %; MEAN CORPUSCULAR HEMOGLOBIN 33.4 pg (27.0-31.0); MEAN CORPUSCULAR HGB CONC 33.6 g/dL (32.0-36.0); MEAN CORPUSCULAR VOLUME 99.5 fL (80.0-94.0); MEAN PLATELET VOLUME 7.8 fL (7.4-11.4); MONOCYTES # (AUTO) 0.6 10^3/uL (0.0-1.0); NEUTROPHILS # (AUTO) 1.3 10^3/uL (1.5-6.6); NEUTROPHILS % (AUTO) 29.6 %; PLT - PLATELET COUNT 132 10^3/uL (130-450); RED CELL DISTRIBUTION WIDTH 14.7 % (12.0-15.0); WHITE BLOOD COUNT 4.3 x10^3/uL (4.8-10.8)
[2018-06-19 17:12] LABS: PT - PROTHROMBIN TIME 11.5 secs (9.9-12.6)
[2018-06-19 17:20] LABS: ACETAMINOPHEN < 10 ug/mL (10-30); ALBUMIN 4.3 g/dL (3.2-5.5); ALBUMIN/GLOBULIN RATIO 1.3 (1.0-2.2); ALKALINE PHOSPHATASE 119 IU/L (42-121); ALT ALANINE AMINOTRANSFERASE 69 IU/L (10-60); AST ASPARTATE AMINOTRANSFERASE 104 IU/L (10-42); BILIRUBIN,TOTAL 0.9 mg/dL (0.2-1.0); BUN - BLOOD UREA NITROGEN 18 mg/dL (6-20); CARBON DIOXIDE - CO2 24 mmol/L (21-32); CHLORIDE 101 mmol/L (101-111); CREATININE 0.7 mg/dL (0.6-1.2); GFR - MDRD 118 (>89); GLUCOSE 82 mg/dL (70-100); LIPASE 89 U/L (22-51); SALICYLATE < 6.0 mg/dL; SODIUM 141 mmol/L (135-145); TOTAL PROTEIN 7.6 g/dL (6.7-8.2)
[2018-06-19 19:28] LABS: MUDS CUTOFF CONCENTRATIONS CUTOFF CONC BELOW:
[2018-06-19 19:42] LABS: AMPHETAMINE SCREEN,URINE NEGATIVE (NEGATIVE); BENZODIAZEPINES SCREEN, URINE POSITIVE (NEGATIVE); COCAINE SCREEN URINE NEGATIVE (NEGATIVE); METHADONE SCREEN, URINE NEGATIVE (NEGATIVE); METHAMPHETAMINES SCREEN, URINE NEGATIVE (NEGATIVE); OPIATE SCREEN, URINE NEGATIVE (NEGATIVE); OXYCODONE SCREEN, URINE NEGATIVE (NEGATIVE); PROPOXYPHENE SCREEN, URINE NEGATIVE (NEGATIVE); TRICYCLIC ANTIDEPRESSANT,URINE NEGATIVE (NEGATIVE)
--- NOTE | 2018-06-19 20:29 | CT Report ---
Reason: ETOH, head inj Procedure Date: 06/19/2018 Accession Number: [id number] / [id number] Procedure: CT - Head W/O CPT Code: FULL RESULT: EXAM: CT HEAD EXAM DATE: 06/19/2018 07:05 PM. CLINICAL HISTORY: ETOH, head inj. COMPARISON: 06/15/2017. TECHNIQUE: Multiaxial CT images were obtained from the foramen magnum to the vertex. Reformats: Sagittal and coronal. IV contrast: None. In accordance with CT protocol optimization, one or more of the following dose reduction techniques were utilized for this exam: automated exposure control, adjustment of mA and/or KV based on patient size, or use of iterative reconstructive technique. FINDINGS: Parenchyma: No intraparenchymal hemorrhage. No evidence of mass, midline shift, or CT findings of infarction. Muhammad-white differentiation is distinct. Extraaxial Spaces: There is moderate volume loss. No subdural or epidural collections identified. Ventricles: Normal in size and position. Sinuses and Orbits: Imaged paranasal sinuses, orbits, and mastoids show no significant abnormality. Bones: No evidence of fracture or calvarial defect. Other: None. IMPRESSION: No acute intracranial abnormality. RADIA
--- NOTE | 2018-06-19 20:34 | CT Report ---
Reason: ETOH, head inj Procedure Date: 06/19/2018 Accession Number: [id number] / [id number] Procedure: CT - Cervical Spine W/O CPT Code: FULL RESULT: EXAM: CT CERVICAL SPINE WITHOUT CONTRAST DATE: 06/19/2018 07:05 PM. HISTORY: ETOH, head inj. COMPARISONS: 04/02/2017. TECHNIQUE: Thin-section axial images were acquired of the cervical spine without contrast. Post-processing: Coronal and sagittal reformats. Other: None. In accordance with CT protocol optimization, one or more of the following dose reduction techniques were utilized for this exam: automated exposure control, adjustment of mA and/or KV based on patient size, or use of iterative reconstructive technique. FINDINGS: Alignment: No scoliosis or spondylolisthesis. Bones: No acute fracture. Interspace Levels/Facets: Multilevel advanced disk degeneration without high-grade canal stenosis, similar to prior. Moderate multilevel facet arthrosis. Other: The paravertebral and prevertebral soft tissues are unremarkable. The lung apices are clear. IMPRESSION: No acute fracture. RADIA
== END 2018-06-19 20:56 | disposition left against medical advice (07) ==
LOC: EDUNIT# → ED 16:44
DX: F10.129 Alcohol abuse with intoxication, unspecified (principal); S09.90XA Unspecified injury of head, initial encounter; W06.XXXA Fall from bed, initial encounter; Y92.538 Other ambulatory health services establishments as the place of occurrence of the external cause; Z53.20 Procedure and treatment not carried out because of patient's decision for unspecified reasons
CPT/HCPCS: 36415; 70450; 72125; 80053; 83690; 84443; 85025; 85610; 99283; 99284; A9270; 80306; 80307; 80320; 80329

== ENCOUNTER 2018-08-09 15:16 | Outpatient (CLI) | payer MEDICARE, MEDICAID | END 2018-08-09 15:17 | disposition critical access hospital (66) | LOC: EMS 15:16 | PROVIDERS: ATTEND Surgery | DX: R68.89 Other general symptoms and signs (principal) | CPT/HCPCS: A0425; A0429 ==

== ENCOUNTER 2018-08-09 15:33 | Emergency (ER) | payer MEDICARE, MEDICAID ==
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
[2018-08-09] MEDS ORDERED: LORazepam 2 MG/ML VIAL IM STA (18:21)
[2018-08-09] MEDS ORDERED: OLANZapine 10 MG VIAL IM STA (18:21)
[2018-08-09 19:17] VITALS: BP 99/74
== END 2018-08-09 20:14 | disposition home or self-care (01) ==
LOC: EDUNIT# → ED 15:33
DX: F10.129 Alcohol abuse with intoxication, unspecified (principal); I10 Essential (primary) hypertension
CPT/HCPCS: 99283; 99284

== ENCOUNTER 2018-08-17 20:13 | Emergency (ER) | payer MEDICARE, MEDICAID ==
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
[2018-08-17] MEDS ORDERED: NAPROXEN 250 MG TABLET PO STA (20:52)
--- NOTE | 2018-08-17 21:59 | CT Report ---
Reason: fall with head injury Procedure Date: 08/17/2018 Accession Number: [id number] / [id number] Procedure: CT - HEAD WO CPT Code: FULL RESULT: EXAM: CT HEAD EXAM DATE: 08/17/2018 09:28 PM. CLINICAL HISTORY: Fall with head injury. COMPARISON: CERVICAL SPINE W/O 06/19/2018 6:47 PM HEAD W/O 06/19/2018 6:47 PM. TECHNIQUE: Multiaxial CT images were obtained from the foramen magnum to the vertex. Reformats: Sagittal and coronal. IV contrast: None. In accordance with CT protocol optimization, one or more of the following dose reduction techniques were utilized for this exam: automated exposure control, adjustment of mA and/or KV based on patient size, or use of iterative reconstructive technique. FINDINGS: Parenchyma: No intraparenchymal hemorrhage. No evidence of mass, midline shift, or CT findings of acute infarction. Muhammad-white differentiation is distinct. Diffuse chronic microangiopathic white matter changes. Extraaxial Spaces: Normal for age. No subdural or epidural collections. Ventricles: The ventricles and cortical sulci are enlarged, consistent with age-related tissue loss. Sinuses and orbits: Imaged paranasal sinuses, orbits, and mastoids show no significant abnormality. Bones: No evidence of fracture or calvarial defect. Other: Superficial soft tissue swelling over left frontal region. IMPRESSION: 1. Soft tissue swelling. 2. Generalized age-related cortical atrophic changes without evidence of acute intracranial abnormality. RADIA
--- NOTE | 2018-08-17 22:10 | CT Report ---
Reason: fall with left periorbital injury Procedure Date: 08/17/2018 Accession Number: [id number] / [id number] Procedure: CT - MAXILLOFACIAL WO CPT Code: FULL RESULT: EXAM: CT MAXILLOFACIAL WITHOUT CONTRAST EXAM DATE: 08/17/2018 09:29 PM. CLINICAL HISTORY: Fall with left periorbital injury. COMPARISONS: None. TECHNIQUE: Thin-section axial images were acquired of the face without contrast. Post-processing: Coronal and sagittal reformats. Other: None. In accordance with CT protocol optimization, one or more of the following dose reduction techniques were utilized for this exam: automated exposure control, adjustment of mA and/or KV based on patient size, or use of iterative reconstructive technique. FINDINGS: Soft Tissue: The infratemporal fossa and parapharyngeal spaces are unremarkable. Superficial soft tissue swelling over left malar region and orbit, extending to the lower portion of the left forehead. Orbits: Symmetric and unremarkable. Bones: No fracture or bone lesion. Temporomandibular Joints: The temporomandibular joints are symmetric and normally located. Sinuses: Normal. No significant mucosal thickening . No fluid levels. Other: None. IMPRESSION: Soft tissue swelling. RADIA
[2018-08-17 22:22] LABS: BASOPHILS % (AUTO) 0.5 %; EOSINOPHILS # (AUTO) 0.1 10^3/uL (0.0-0.7); HGB - HEMOGLOBIN 12.7 g/dL (14.0-18.0); LYMPHOCYTES # (AUTO) 1.2 10^3/uL (1.5-3.5); LYMPHOCYTES % (AUTO) 39.1 %; MEAN CORPUSCULAR HEMOGLOBIN 33.2 pg (27.0-31.0); MEAN CORPUSCULAR HGB CONC 33.3 g/dL (32.0-36.0); MEAN CORPUSCULAR VOLUME 99.5 fL (80.0-94.0); MEAN PLATELET VOLUME 8.3 fL (7.4-11.4); MONOCYTES # (AUTO) 0.4 10^3/uL (0.0-1.0); MONOCYTES % (AUTO) 12.3 %; NEUTROPHILS # (AUTO) 1.4 10^3/uL (1.5-6.6); NEUTROPHILS % (AUTO) 45.1 %; PLT - PLATELET COUNT 120 10^3/uL (130-450); RED BLOOD COUNT 3.84 10^6/uL (4.70-6.10); RED CELL DISTRIBUTION WIDTH 14.1 % (12.0-15.0); WHITE BLOOD COUNT 3.1 x10^3/uL (4.8-10.8)
[2018-08-17 22:28] LABS: ALBUMIN 4.1 g/dL (3.2-5.5); ALBUMIN/GLOBULIN RATIO 1.4 (1.0-2.2); BILIRUBIN,TOTAL 0.9 mg/dL (0.2-1.0); CALCIUM 8.8 mg/dL (8.5-10.3); CREATININE 0.8 mg/dL (0.6-1.2); MAGNESIUM 1.8 mg/dL (1.7-2.8); TOTAL PROTEIN 7.1 g/dL (6.7-8.2)
[2018-08-17 22:46] VITALS: BP 150/91
== END 2018-08-17 22:49 | disposition home or self-care (01) ==
LOC: ED 20:13
DX: S00.83XA Contusion of other part of head, initial encounter (principal); H11.32 Conjunctival hemorrhage, left eye; W01.0XXA Fall on same level from slipping, tripping and stumbling without subsequent striking against object, initial encounter; Y92.009 Unspecified place in unspecified non-institutional (private) residence as the place of occurrence of the external cause; F10.229 Alcohol dependence with intoxication, unspecified; Z91.81 History of falling; G62.9 Polyneuropathy, unspecified; G61.0 Guillain-Barre syndrome; I10 Essential (primary) hypertension; Z66 Do not resuscitate
CPT/HCPCS: 36415; 70450; 70486; 80053; 82607; 83690; 83735; 85025; 99284; A9270; 80320; 84207; 84425

== ENCOUNTER 2018-09-03 20:01 | Outpatient (CLI) | payer MEDICARE, MEDICAID | END 2018-09-03 20:02 | disposition critical access hospital (66) | LOC: EMS 20:01 | PROVIDERS: ATTEND Surgery | DX: F10.129 Alcohol abuse with intoxication, unspecified (principal) | CPT/HCPCS: A0425; A0429 ==

== ENCOUNTER 2018-09-03 20:21 | Emergency (ER) | payer MEDICARE, MEDICAID ==
--- NOTE | 2018-09-03 20:56 | ED Physician Documentation ---
History of Present Illness - Stated complaint Stated Complaint: ETOH - Chief complaint Chief Complaint: General - History obtained from History obtained from: Patient, EMS - History of Present Illness Timing: Today - Additonal information Additional information: BIBA. Per medic report, patient's neighbor found patient in his (patient's) car, difficult to waken and thus neighbor called 911. Patient tells me he has been falling recently and wants to know how to stop this from continuing to happen. Review of Systems Cardiac: reports: Reviewed and negative Respiratory: reports: Reviewed and negative GI: reports: Reviewed and negative Musculoskeletal: reports: Back pain (chronic), Joint pain (chronic knee pain) Neurologic: reports: Generalized weakness (chronic). denies: Headache PD PAST MEDICAL HISTORY - Past Medical History Cardiovascular: Hypertension, High cholesterol Respiratory: Sleep apnea, CPAP use Neuro: Other Endocrine/Autoimmune: None, Other GI: GERD, Pancreatitis : Incontinence HEENT: None Psych: Depression, Anxiety, Panic attacks, Claustrophobia Musculoskeletal: Osteoarthritis Derm: None - Past Surgical History Past Surgical History: Yes Ortho: Hip replacement, Arthroscopic surgery HEENT: Tracheostomy - Present Medications Home Medications: Ambulatory Orders Medication Instructions Recorded Confirmed Gabapentin 300 mg PO QPM 05/23/16 01/22/18 Propranolol [Inderal] 60 mg PO BID 05/23/16 01/22/18 Mirtazapine 7.5 mg PO QPM 08/28/16 01/22/18 Folic Acid 1 mg PO DAILY #30 tablet 08/30/16 01/22/18 Multivitamin [Theragran] 1 tab PO DAILYWM #30 tablet 08/30/16 01/22/18 Omeprazole 20 mg PO QDAC 06/15/17 01/22/18 buPROPion HCl [Bupropion HCl Sr] 200 mg PO DAILY 06/15/17 01/22/18 hydrOXYzine pamoate [Hydroxyzine 50 mg PO 0900,1600 06/15/17 01/22/18 Pamoate] Lorazepam [Ativan] 1 mg PO TID #30 tablet 09/02/17 01/22/18 Thiamine HCl [Vitamin B-1] 100 mg PO DAILY #30 tablet 08/17/18 - Allergies Allergies/Adverse Reactions: Allergies Allergy/AdvReac Type Severity Reaction Status Date / Time lisinopril Allergy Mild Anaphylaxis Verified 08/17/18 20:19 - Social History Does the pt smoke?: No Smoking Status: Never smoker Does the pt drink ETOH?: Yes Does the pt have substance abuse?: Yes - Immunizations Immunizations are current?: Yes Immunizations: Other immun not current - POLST Patient has POLST: No POLST Status: DNR (pt clearly state to me it is DNR, Pt's mother at the bedside did not say no.) PD ED PE NORMAL - Vitals Vital signs reviewed: Yes - General General: No acute distress, Well developed/nourished, Other (asleep when I first approach bedside, awakens with verbal and gentle tactile stimulus. 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 2-12 intact, No motor deficit, No sensory deficit, Other (speech is slow but intelligible and accurate) Eye Opening: To Voice Motor: Obeys Commands Verbal: Oriented GCS Score: 14 Results - Vitals Vitals: Vital Signs - 24 hr 09/03/18 09/03/18 20:27 22:16 Temperature 36.5 C Heart Rate 63 63 Respiratory 16 16 Rate Blood Pressure 125/96 H 125/90 H O2 Saturation 99 99 Oxygen O2 Source Room air - Labs Labs: Laboratory Tests 09/03/18 21:35 Ethyl Alcohol 353.8 PD MEDICAL DECISION MAKING - ED course Complexity details: reviewed old records, reviewed results, re-evaluated patient, considered differential, d/w patient ED course: I explained to patient that the most likely explanation for his recurrent falls is his heavy and regular alcohol consumption, and if he can stop drinking, this would eliminate that variable. I asked patient how he ended up in his car intoxicated. He says he had just returned from the store. I asked him if he drove while under the influence of alcohol and he says he was sober. He subsequently tells me he arrived home and drank liquor while still in his car. Shortly after his DARYN returned, patient tells me he feels well and requests d/c home. He does not want help quitting drinking at this time and declines morning consult. Departure - Departure Disposition: Home, Self Care Clinical Impression: Alcoholism Condition: Good Instructions: ED Alcohol Intoxication, ED Alcohol Abuse Follow-Up: [facility] [Provider Group] [facility] [Provider Group] Discharge Date/Time: 09/03/18 22:17
[2018-09-03 22:17] VITALS: BP 125/90
== END 2018-09-03 22:17 | disposition home or self-care (01) ==
LOC: EDUNIT# → ED 20:21
DX: F10.229 Alcohol dependence with intoxication, unspecified (principal); Z91.81 History of falling; I10 Essential (primary) hypertension
CPT/HCPCS: 36415; 80320; 99283

== ENCOUNTER 2018-10-13 15:02 | Outpatient (CLI) | payer MEDICARE, MEDICAID ==
--- NOTE | 2018-10-13 16:02 | XRAY Report ---
Reason: KNEE JOINT PAIN, RIGHT Procedure Date: 10/13/2018 Accession Number: [id number] / [id number] Procedure: XR - Knee 3 View RT CPT Code: FULL RESULT: EXAM: RIGHT KNEE RADIOGRAPHY EXAM DATE: 10/13/2018 03:26 PM. CLINICAL HISTORY: KNEE JOINT PAIN, RIGHT. COMPARISON: KNEE 4 VIEW RT 05/28/2018 8:05 PM. TECHNIQUE: 3 views. FINDINGS: Bones: The bones are qualitatively osteopenic; this limits evaluation for underlying fractures or masses. No fracture is detected. Joints: Normal. No effusion. No subluxations. Soft Tissues: Minimal joint space narrowing of weightbearing compartments. No soft tissue swelling. IMPRESSION: Osteopenia with mild degenerative disease. RADIA
== END 2018-10-13 15:03 | disposition home or self-care (01) ==
LOC: DI 15:02
PROVIDERS: ATTEND Physician Assistant Medical
DX: M17.11 Unilateral primary osteoarthritis, right knee (principal); M85.861 Other specified disorders of bone density and structure, right lower leg

== ENCOUNTER 2018-10-20 16:15 | Emergency (ER) | payer MEDICARE, MEDICAID ==
[2018-10-20 16:24] VITALS: BP 136/106
--- NOTE | 2018-10-20 16:48 | ED Physician Documentation ---
History of Present Illness - Stated complaint Stated Complaint: MED REFILLS - Chief complaint Chief Complaint: MHE - History obtained from History obtained from: Patient - History of Present Illness Timing: Today Pain level max: 0 Pain level now: 0 - Additonal information Additional information: 53-year-old male has been on clonazepam for several months, his prescribing clinic closed and states that he saw his primary care provider who will not refill his clonazepam. His counselor told him to come here for a refill of his clonazepam. Nothing makes it better or worse. No current complaints Review of Systems Constitutional: denies: Fever, Chills Respiratory: denies: Cough GI: denies: Nausea, Vomiting, Diarrhea Skin: denies: Rash Musculoskeletal: denies: Neck pain, Back pain Neurologic: denies: Headache PD PAST MEDICAL HISTORY - Past Medical History Cardiovascular: Hypertension, High cholesterol Respiratory: Sleep apnea, CPAP use Neuro: Other Endocrine/Autoimmune: None, Other GI: GERD, Pancreatitis : Incontinence HEENT: None Psych: Depression, Anxiety, Panic attacks, Claustrophobia Musculoskeletal: Osteoarthritis Derm: None - Past Surgical History Past Surgical History: Yes Ortho: Hip replacement, Arthroscopic surgery HEENT: Tracheostomy - Present Medications Home Medications: Ambulatory Orders Medication Instructions Recorded Confirmed Gabapentin 300 mg PO QPM 05/23/16 01/22/18 Propranolol [Inderal] 60 mg PO BID 05/23/16 01/22/18 Mirtazapine 7.5 mg PO QPM 08/28/16 01/22/18 Folic Acid 1 mg PO DAILY #30 tablet 08/30/16 01/22/18 Multivitamin [Theragran] 1 tab PO DAILYWM #30 tablet 08/30/16 01/22/18 Omeprazole 20 mg PO QDAC 06/15/17 01/22/18 buPROPion HCl [Bupropion HCl Sr] 200 mg PO DAILY 06/15/17 01/22/18 hydrOXYzine pamoate [Hydroxyzine 50 mg PO 0900,1600 06/15/17 01/22/18 Pamoate] Lorazepam [Ativan] 1 mg PO TID #30 tablet 09/02/17 01/22/18 Thiamine HCl [Vitamin B-1] 100 mg PO DAILY #30 tablet 08/17/18 clonazePAM [Clonazepam] 1 mg PO Q8H PRN #21 tablet 10/20/18 - Allergies Allergies/Adverse Reactions: Allergies Allergy/AdvReac Type Severity Reaction Status Date / Time lisinopril Allergy Mild Anaphylaxis Verified 10/20/18 16:24 - Social History Does the pt smoke?: No Smoking Status: Never smoker Does the pt drink ETOH?: Yes Does the pt have substance abuse?: Yes - Immunizations Immunizations are current?: Yes Immunizations: Other immun not current - POLST Patient has POLST: No POLST Status: DNR (pt clearly state to me it is DNR, Pt's mother at the bedside did not say no.) PD ED PE NORMAL - Vitals Vital signs reviewed: Yes - General General: 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, No acute distress - HEENT HEENT: Moist mucous membranes - Neck Neck: Supple, no meningeal sign - Cardiac Cardiac: RRR - Respiratory Respiratory: No respiratory distress, Clear bilaterally - Derm Derm: Warm and dry - Neuro Neuro: 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 Results - Vitals Vitals: Vital Signs - 24 hr 10/20/18 16:20 Temperature 36.1 C L Heart Rate 78 Respiratory 17 Rate Blood Pressure 136/106 H O2 Saturation 100 Oxygen O2 Source Room air PD MEDICAL DECISION MAKING - ED course Complexity details: reviewed old records, considered differential, d/w patient, d/w PMD ED course: 53-year-old male has been on clonazepam for quite some time, 4 pills a day. Will prescribe 3 pills a day for a week. Discussed the case with his PCP who will see him in the office to discuss a clonazepam taper. Patient counseled regarding signs and symptoms for which I believe and urgent re-evaluation would be necessary. Patient with good understanding of and agreement to plan and is comfortable going home at this time This document was made in part using voice recognition software. While efforts are made to proofread this document, sound alike and grammatical errors may occur. Departure - Departure Disposition: 01 Home, Self Care Clinical Impression: Medication refill Condition: Good Follow-Up: Rah Beckett PA-C [Primary Care Provider] - Within 1 week Prescriptions: clonazePAM [Clonazepam] 1 mg PO Q8H PRN #21 tablet PRN Reason: Anxiety Comments: I spoke with your primary care provider today, he will see you in the office. You will need to be tapered off of the clonazepam. This is a dangerous medication to just stop. Follow-up with him to discuss tapering off of the medication safely. Return if you worsen
== END 2018-10-20 17:03 | disposition home or self-care (01) ==
LOC: ED 16:15
DX: Z76.0 Encounter for issue of repeat prescription (principal); I10 Essential (primary) hypertension
CPT/HCPCS: 99281; 99283

== ENCOUNTER 2018-11-15 08:00 | Outpatient (CLI) | payer MEDICARE, MEDICAID ==
[2018-11-15 19:12] LABS: ALBUMIN 4.5 g/dL (3.2-5.5); ALBUMIN/GLOBULIN RATIO 1.5 (1.0-2.2); BILIRUBIN,TOTAL 1.2 mg/dL (0.2-1.0); CALCIUM 9.4 mg/dL (8.5-10.3); TOTAL PROTEIN 7.6 g/dL (6.7-8.2)
== END 2018-11-15 23:59 | disposition home or self-care (01) ==
LOC: LAB.N 08:00
PROVIDERS: ATTEND Physician Assistant Medical
DX: I10 Essential (primary) hypertension (principal); F10.20 Alcohol dependence, uncomplicated
CPT/HCPCS: 36415; 80053

== ENCOUNTER 2018-12-03 12:32 | Outpatient (CLI) | payer MEDICARE, MEDICAID | END 2018-12-03 12:33 | disposition critical access hospital (66) | LOC: EMS 12:32 | PROVIDERS: ATTEND Surgery | DX: R46.4 Slowness and poor responsiveness (principal); W18.30XA Fall on same level, unspecified, initial encounter; Y93.01 Activity, walking, marching and hiking; Y92.009 Unspecified place in unspecified non-institutional (private) residence as the place of occurrence of the external cause | CPT/HCPCS: A0425; A0429 ==

== ENCOUNTER 2018-12-03 12:54 | Emergency (ER) | payer MEDICARE, MEDICAID ==
[2018-12-03] MEDS ORDERED: IBUPROFEN 800 MG TABLET PO STA (13:22)
[2018-12-03] MEDS ORDERED: TETANUS/DIPHTHERIA/PERTUSSIS 0.5 ML SYRINGE IM ONE (13:23)
--- NOTE | 2018-12-03 13:26 | ED Physician Documentation ---
PD HPI UPPER EXT INJURY - Stated complaint Stated Complaint: ETOH - Chief complaint Chief Complaint: Ext Problem - History obtained from History obtained from: Patient, EMS - History of Present Illness Location: Right (This is a 53-year-old gentleman who is well-known to me and this emergency department mostly for problems with alcoholism. He says he had been sober but admits to drinking today. He went out to check the mail and fell onto his right side injuring his elbow and hip. He is unsure whether he hit his head or not. He complains mostly of right hip pain, noting that hip has been replaced.) Review of Systems Ten Systems: 10 systems reviewed and negative Constitutional: denies: Fever, Chills Cardiac: denies: Chest pain / pressure, Palpitations Respiratory: denies: Dyspnea, Cough GI: denies: Abdominal Pain PD PAST MEDICAL HISTORY - Past Medical History Cardiovascular: Hypertension, High cholesterol Respiratory: Sleep apnea, CPAP use Neuro: Other Endocrine/Autoimmune: None, Other GI: GERD, Pancreatitis : Incontinence HEENT: None Psych: Depression, Anxiety, Panic attacks, Claustrophobia Musculoskeletal: Osteoarthritis Derm: None - Past Surgical History Past Surgical History: Yes Ortho: Hip replacement, Arthroscopic surgery HEENT: Tracheostomy - Present Medications Home Medications: Ambulatory Orders Medication Instructions Recorded Confirmed Gabapentin 300 mg PO QPM 05/23/16 01/22/18 Propranolol [Inderal] 60 mg PO BID 05/23/16 01/22/18 Mirtazapine 7.5 mg PO QPM 08/28/16 01/22/18 Folic Acid 1 mg PO DAILY #30 tablet 08/30/16 01/22/18 Multivitamin [Theragran] 1 tab PO DAILYWM #30 tablet 08/30/16 01/22/18 Omeprazole 20 mg PO QDAC 06/15/17 01/22/18 buPROPion HCl [Bupropion HCl Sr] 200 mg PO DAILY 06/15/17 01/22/18 hydrOXYzine pamoate [Hydroxyzine 50 mg PO 0900,1600 06/15/17 01/22/18 Pamoate] Lorazepam [Ativan] 1 mg PO TID #30 tablet 09/02/17 01/22/18 Thiamine HCl [Vitamin B-1] 100 mg PO DAILY #30 tablet 08/17/18 clonazePAM [Clonazepam] 1 mg PO Q8H PRN #21 tablet 10/20/18 Ibuprofen [Motrin] 800 mg PO Q8H PRN #10 tablet 12/03/18 - Allergies Allergies/Adverse Reactions: Allergies Allergy/AdvReac Type Severity Reaction Status Date / Time lisinopril Allergy Mild Anaphylaxis Verified 12/03/18 13:16 - Social History Does the pt smoke?: No Smoking Status: Never smoker Does the pt drink ETOH?: Yes Does the pt have substance abuse?: Yes - Immunizations Immunizations are current?: Yes Immunizations: Other immun not current - POLST Patient has POLST: No POLST Status: DNR (pt clearly state to me it is DNR, Pt's mother at the bedside did not say no.) PD ED PE NORMAL - Vitals Vital signs reviewed: Yes - General General: 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, Other (Slow slurred speech with bloodshot eyes and nystagmus but competent and coherent.) - HEENT HEENT: PERRL - Neck Neck: No bony TTP, Other (C-collar maintained pending imaging despite lack of tenderness given intoxication) - Cardiac Cardiac: RRR, No murmur - Respiratory Respiratory: No respiratory distress, Clear bilaterally - Abdomen Abdomen: Soft, Non tender - Derm Derm: Normal color, Warm and dry - Extremities Extremities: Other (There is an abrasion over the lateral and posterior right elbow and not quite straighten it all the way but no bony tenderness. No bony tenderness of the right hip and seemingly painless internal and external rotation.) - Neuro Neuro: 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, Normal speech Results - Vitals Vitals: Vital Signs - 24 hr 12/03/18 13:07 Temperature 37 C Heart Rate 81 Respiratory 16 Rate Blood Pressure 100/71 O2 Saturation 93 Oxygen O2 Source Room air - Rads (name of study) CT Head and Cspine Radiology: EMP read contemporaneously (NAD) R elbow and R Hip XRs Radiology: EMP read contemporaneously (nromal) PD MEDICAL DECISION MAKING - ED course ED course: 53-year-old gentleman presents after a fall fueled by alcohol. He has scrapes on the right elbow and complains of right elbow and hip pain. CT imaging of the head and neck were done in addition to plain films of the right elbow and right hip without pertinent positive findings. He was foot advised to quit using alcohol. 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 Departure - Departure Disposition: 01 Home, Self Care Clinical Impression: Alcohol intoxication Qualifiers: Complication of substance-induced condition: uncomplicated Qualified Code(s): F10.920 - Alcohol use, unspecified with intoxication, uncomplicated Strain of right hip Qualifiers: Encounter type: initial encounter Qualified Code(s): S76.011A - Strain of muscle, fascia and tendon of right hip, initial encounter Contusion of hip, right Qualifiers: Encounter type: initial encounter Qualified Code(s): S70.01XA - Contusion of right hip, initial encounter Fall from slip, trip, or stumble Qualifiers: Encounter type: initial encounter Qualified Code(s): W01.0XXA - Fall on same level from slipping, tripping and stumbling without subsequent striking against object, initial encounter Abrasion of right elbow Qualifiers: Encounter type: initial encounter Qualified Code(s): S50.311A - Abrasion of right elbow, initial encounter Condition: Good Record reviewed to determine appropriate education?: Yes Health Concerns: Alcoholism causing a fall today without serious injuries. Plan of Treatment: X-rays of the right hip, right elbow, and CAT scan of the head and neck were done without pertinent positive findings. Care Goals: To quit using alcohol Assessment: as above Instructions: ED Alcohol Intoxication, ED Abrasion Prescriptions: Ibuprofen [Motrin] 800 mg PO Q8H PRN #10 tablet PRN Reason: PAIN &/OR FEVER Comments: Call your doctor to arrange a follow-up appointment, make the next available appointment. In the interim, return anytime if worse or if new symptoms develop.
--- NOTE | 2018-12-03 14:22 | CT Report ---
Reason: fall, etoh, R hip and elbow inj Procedure Date: 12/03/2018 Accession Number: [id number] / [id number] Procedure: CT - CERVICAL SPINE WO CPT Code: FULL RESULT: EXAM: CT CERVICAL SPINE WITHOUT CONTRAST DATE: 12/03/2018 02:03 PM. HISTORY: Fall, etoh, R hip and elbow injuries. COMPARISONS: HEAD W/O 08/17/2018 9:13 PM CERVICAL SPINE W/O 06/19/2018 6:47 PM. TECHNIQUE: Thin-section axial images were acquired of the cervical spine without contrast. Post-processing: Coronal and sagittal reformats. Other: None. In accordance with CT protocol optimization, one or more of the following dose reduction techniques were utilized for this exam: automated exposure control, adjustment of mA and/or KV based on patient size, or use of iterative reconstructive technique. FINDINGS: Alignment: No significant anterolisthesis or retrolisthesis. Mild levoconvex curvature of the cervicothoracic spine. Bones: Clivus, occipital condyle and odontoid process appear intact. Mastoid and petrosal portions of the temporal bone, occipital bones appear intact. Visualized mandible appear intact. Minimal mucosal thickening in the left sphenoid sinus locule. Vertebral body heights are maintained. Spinous processes, articular processes, pedicles, and transverse processes appear intact. Trabecular sclerosis at C3-C4 endplates unchanged compared to previous. Schmorl's node endplate changes at the upper C7 and T1 endplates. Musculature: Normal. No fatty atrophy. Other: The paravertebral and prevertebral soft tissues are unremarkable. The lung apices are clear. IMPRESSION: 1. No fractures or subluxation. 2. Multilevel degenerative changes. No significant change compared to 06/19/2018. RADIA
--- NOTE | 2018-12-03 14:32 | CT Report ---
Reason: fall, etoh, R hip and elbow inj Procedure Date: 12/03/2018 Accession Number: [id number] / [id number] Procedure: CT - HEAD WO CPT Code: FULL RESULT: EXAM: CT HEAD EXAM DATE: 12/03/2018 02:03 PM. CLINICAL HISTORY: 53-year-old alcohol intoxicated patient presenting after a fall with headache, right hip pain, and elbow pain. Evaluate for intracranial pathology. COMPARISON: CT head 08/17/2018. TECHNIQUE: Multiaxial CT images were obtained from the foramen magnum to the vertex. Reformats: Sagittal and coronal. IV contrast: None. In accordance with CT protocol optimization, one or more of the following dose reduction techniques were utilized for this exam: automated exposure control, adjustment of mA and/or KV based on patient size, or use of iterative reconstructive technique. FINDINGS: Parenchyma: No intraparenchymal hemorrhage. No evidence of mass, midline shift, or CT findings of infarction. Muhammad-white differentiation is distinct. Mild to moderate cortical volume loss. Extraaxial Spaces: Sulci and cisterns are prominent but appropriate for the extent of volume loss. No subdural or epidural collections identified. Ventricles: Normal in size and position. Sinuses and Orbits: The orbits appear normal. There are small bilateral sphenoid sinus mucosal retention cyst versus polyps greater on the left. Mastoid air cells and middle ear cavities are clear. Bones: No evidence of fracture or calvarial defect. Other: Vascular calcifications of the cavernous ICA segments. IMPRESSION: 1. No definite acute intracranial pathology seen; specifically, no acute infarct, acute intracranial hemorrhage, mass, hydrocephalus, or midline shift. 2. No definite calvarial fracture. RADIA
--- NOTE | 2018-12-03 14:59 | XRAY Report ---
Reason: fall, etoh, R hip and elbow inj Procedure Date: 12/03/2018 Accession Number: [id number] / [id number] Procedure: XR - Elbow 3 View RT CPT Code: FULL RESULT: EXAM: RIGHT ELBOW RADIOGRAPHY EXAM DATE: 12/03/2018 02:26 PM. CLINICAL HISTORY: Fall, etoh, R hip and elbow inj. COMPARISON: HAND 3 VIEW LT 04/30/2018 2:10 PM. TECHNIQUE: 3 views. FINDINGS: Bones: No fracture or focal bony lesion. Joints: No evidence of dislocation. Soft Tissues: No unexpected soft tissue findings. IMPRESSION: No evidence of fracture or dislocation. RADIA
--- NOTE | 2018-12-03 14:59 | XRAY Report ---
Reason: fall, etoh, R hip and elbow inj Procedure Date: 12/03/2018 Accession Number: [id number] / [id number] Procedure: XR - Hip w/Pelvis 2-3V RT CPT Code: FULL RESULT: EXAM: RIGHT HIP RADIOGRAPHY EXAM DATE: 12/03/2018 02:26 PM. CLINICAL HISTORY: Trauma. COMPARISON: HIP W/PELVIS 2-3V RT 08/21/2017 11:24 AM. TECHNIQUE: 2 views. FINDINGS: Bones: Patient has undergone right hip arthroplasty with longstem femoral component. There are cerclage wires. Interval resorption of previously visualized soft tissue ossification within the proximal thigh. Joints: No evidence of dislocation. Soft Tissues: Interval resorption of previously visualized soft tissue ossification within the proximal thigh. No unexpected soft tissue findings. IMPRESSION: No evidence of acute fracture or dislocation. No evidence of hardware dysfunction. RADIA
[2018-12-03 15:18] VITALS: BP 106/73
== END 2018-12-03 15:19 | disposition home or self-care (01) ==
LOC: EDUNIT# → ED 12:54
DX: S76.011A Strain of muscle, fascia and tendon of right hip, initial encounter (principal); S70.01XA Contusion of right hip, initial encounter; S50.311A Abrasion of right elbow, initial encounter; W01.0XXA Fall on same level from slipping, tripping and stumbling without subsequent striking against object, initial encounter; Z23 Encounter for immunization; F10.229 Alcohol dependence with intoxication, unspecified; M50.30 Other cervical disc degeneration, unspecified cervical region; I10 Essential (primary) hypertension; Z96.641 Presence of right artificial hip joint
CPT/HCPCS: 70450; 72125; 73080; 73502; 90471; 90715; 99283; A9270

== ENCOUNTER 2018-12-16 13:49 | Outpatient (CLI) | payer MEDICARE, MEDICAID ==
--- NOTE | 2018-12-17 09:32 | XRAY Report ---
Reason: PAIN IN JOINTS OF RIGHT HAND Procedure Date: 12/16/2018 Accession Number: [id number] / [id number] Procedure: XRN - Hand 3 View RT CPT Code: FULL RESULT: EXAM: RIGHT HAND RADIOGRAPHY EXAM DATE: 12/16/2018 02:04 PM. CLINICAL HISTORY: Fall on outstretched hand 2 weeks ago. Pain in joints of right hand. COMPARISON: None. TECHNIQUE: 3 views. FINDINGS: Bones: No acute fracture or bony lesion. Degenerative spurring, greatest at the right second metacarpophalangeal joint. Joints: Marked narrowing of the right second and mild narrowing of the first and third metacarpophalangeal joints. Dorsal subluxation at the right fifth PIP joint with flexion at the DIP joint and extension at the fifth PIP joint. Degenerative changes of the right first carpometacarpal joint are also seen. No dislocation. Soft Tissues: No radiopaque foreign bodies. IMPRESSION: 1. No acute osseous abnormalities. 2. Degenerative changes of the right hand. RADIA
== END 2018-12-16 13:50 | disposition home or self-care (01) ==
LOC: DI.N 13:49
PROVIDERS: ATTEND Family Medicine
DX: M19.041 Primary osteoarthritis, right hand (principal)

== ENCOUNTER 2019-03-01 14:56 | Outpatient (CLI) | payer MEDICARE, MEDICAID ==
[2019-03-01 19:02] LABS: ALBUMIN 3.7 g/dL (3.2-5.5); ALBUMIN/GLOBULIN RATIO 1.2 (1.0-2.2); BILIRUBIN,TOTAL 1.3 mg/dL (0.2-1.0); CALCIUM 9.5 mg/dL (8.5-10.3); MAGNESIUM 1.6 mg/dL (1.7-2.8); TOTAL PROTEIN 6.8 g/dL (6.7-8.2)
[2019-03-01 19:17] LABS: THYROID STIMULATING HORMONE 3.36 uIU/mL (0.34-5.60)
[2019-03-01 19:19] LABS: FREE T4 (FREE THYROXINE) 0.67 ng/dL (0.58-1.64)
== END 2019-03-01 23:59 | disposition home or self-care (01) ==
LOC: LAB.N 14:56
PROVIDERS: ATTEND Family Medicine
DX: E83.42 Hypomagnesemia (principal); E03.9 Hypothyroidism, unspecified; R74.8 Abnormal levels of other serum enzymes
CPT/HCPCS: 36415; 80053; 83735; 84439; 84443; 84481; 86800

== ENCOUNTER 2019-03-23 20:30 | Outpatient (CLI) | payer MEDICARE, MEDICAID | END 2019-03-23 20:31 | disposition critical access hospital (66) | LOC: EMS 20:30 | PROVIDERS: ATTEND Surgery | DX: R10.10 Upper abdominal pain, unspecified (principal); R42 Dizziness and giddiness | CPT/HCPCS: A0425; A0429 ==

== ENCOUNTER 2019-03-23 20:49 | Emergency (ER) | payer MEDICARE, MEDICAID ==
--- NOTE | 2019-03-23 21:06 | ED Physician Documentation ---
PD HPI ABD PAIN - Stated complaint Stated Complaint: ABD PAIN - Chief complaint Chief Complaint: Abd Pain - History obtained from History obtained from: Patient - History of Present Illness Timing - onset: How many hours ago (few), Today Timing - duration: Hours (few) Timing - details: Abrupt onset, Still present Quality: Cramping, Aching, Pain Location: Epigastric Radiation: No: Chest, Lower back Improved by: No: Vomiting Worsened by: Eating Associated symptoms: Nausea, Vomiting (couple times). No: Hematemesis, Diarrhea, Melena Similar symptoms before: Diagnosis (alcoholic gastritis) Recently seen: Not recently seen Review of Systems Constitutional: denies: Fever Nose: denies: Rhinorrhea / runny nose, Congestion Throat: denies: Sore throat Cardiac: denies: Chest pain / pressure Respiratory: denies: Cough GI: reports: Abdominal Pain, Nausea, Vomiting. denies: Diarrhea, Hematemesis, Bloody / black stool : denies: Dysuria Neurologic: denies: Altered mental status, Head injury PD PAST MEDICAL HISTORY - Past Medical History Past Medical History: Yes Cardiovascular: Hypertension, High cholesterol Respiratory: Sleep apnea, CPAP use Neuro: Other Endocrine/Autoimmune: None, Other GI: GERD, Pancreatitis : Incontinence HEENT: None Psych: Depression, Anxiety, Panic attacks, Claustrophobia Musculoskeletal: Osteoarthritis Derm: None Other Past Medical History: Alcoholism - Past Surgical History Past Surgical History: Yes Ortho: Hip replacement, Arthroscopic surgery HEENT: Tracheostomy - Present Medications Home Medications: Ambulatory Orders Medication Instructions Recorded Confirmed Gabapentin 300 mg PO QPM 05/23/16 03/23/19 Propranolol [Inderal] 60 mg PO BID 05/23/16 03/23/19 Mirtazapine 7.5 mg PO QPM 08/28/16 03/23/19 Folic Acid 1 mg PO DAILY #30 tablet 08/30/16 03/23/19 Multivitamin [Theragran] 1 tab PO DAILYWM #30 tablet 08/30/16 03/23/19 hydrOXYzine pamoate [Hydroxyzine 50 mg PO 0900,1600 06/15/17 03/23/19 Pamoate] Lorazepam [Ativan] 1 mg PO TID #30 tablet 09/02/17 03/23/19 Thiamine HCl [Vitamin B-1] 100 mg PO DAILY #30 tablet 08/17/18 03/23/19 clonazePAM [Clonazepam] 1 mg PO Q8H PRN #21 tablet 10/20/18 03/23/19 Ibuprofen [Motrin] 800 mg PO Q8H PRN #10 tablet 12/03/18 Famotidine 20 mg PO DAILY #30 tablet 03/24/19 LORazepam [Ativan] 1 mg PO Q6H PRN #20 tablet 03/24/19 Ondansetron Odt [Zofran] 4 mg TL Q6H PRN #20 tablet 03/24/19 - Allergies Allergies/Adverse Reactions: Allergies Allergy/AdvReac Type Severity Reaction Status Date / Time lisinopril Allergy Mild Anaphylaxis Verified 03/23/19 20:50 - Social History Does the pt smoke?: No Smoking Status: Never smoker Does the pt drink ETOH?: Yes Does the pt have substance abuse?: Yes - Immunizations Immunizations are current?: Yes Immunizations: Other immun not current - POLST Patient has POLST: No POLST Status: DNR (pt clearly state to me it is DNR, Pt's mother at the bedside did not say no.) PD ED PE NORMAL - Vitals Vital signs reviewed: Yes - General General: No acute distress, Well developed/nourished, Other (somnolent and smell of alcohol on breath; some slurring of speech.) - HEENT HEENT: Atraumatic, Pharynx benign - Neck Neck: Supple, no meningeal sign, No bony TTP, No adenopathy - Cardiac Cardiac: RRR, No murmur - Respiratory Respiratory: Clear bilaterally - Abdomen Abdomen: Normal bowel sounds, Soft, Non distended, No organomegaly, Other (tender epigastric with local guarding but no percussion nor rebound tenderness. 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, No motor deficit, Normal speech Results - Vitals Vitals: Vital Signs - 24 hr 03/23/19 03/23/19 03/23/19 20:51 21:03 22:29 Temperature 36.6 C Heart Rate 81 75 84 Respiratory 18 18 16 Rate Blood Pressure 114/89 H 110/88 H 109/80 O2 Saturation 99 97 97 03/23/19 03/23/19 22:49 23:47 Temperature 36.5 C Heart Rate 78 81 Respiratory 18 16 Rate Blood Pressure 107/76 98/72 O2 Saturation 100 100 Oxygen O2 Source Room air - Labs Labs: Laboratory Tests 03/23/19 03/23/19 21:25 21:25 WBC 4.5 L RBC 3.56 L Hgb 11.7 L Hct 34.5 L MCV 96.9 H MCH 32.9 H MCHC 33.9 RDW 15.4 H Plt Count 224 MPV 9.3 Neut # (Auto) 2.3 Lymph # (Auto) 1.7 [place] # (Auto) 0.4 Eos # (Auto) 0.0 Baso # (Auto) 0.1 Absolute Nucleated RBC 0.00 Nucleated RBC % 0.0 Sodium 140 Potassium 4.4 Chloride 101 Carbon Dioxide 22 Anion Gap 17.0 H BUN 12 Creatinine 0.7 Estimated GFR (MDRD) 117 Glucose 78 Calcium 8.5 Magnesium 1.8 Total Bilirubin 1.0 AST 79 H ALT 38 Alkaline Phosphatase 112 Total Protein 6.5 L Albumin 3.6 Globulin 2.9 Albumin/Globulin Ratio 1.2 Lipase 23 Ethyl Alcohol 365.1 PD MEDICAL DECISION MAKING - ED course Complexity details: reviewed results, re-evaluated patient (He is improved after some IV fluids and antiemetics and GI cocktail. Seems likely alcoholic gastritis. His labs are good. He is able to tolerate fluids now.), considered differential (likely alcoholic gastritis. Consider pancreatitis or gallbladder. ), d/w patient ED course: Recheck abdomen is without tenderness. He is able to drink fluids without nausea or vomiting. He is ambulatory to the bathroom without ataxia. The slurring of his speech has improved. Departure - Departure Disposition: 01 Home, Self Care Clinical Impression: Nausea and vomiting Qualifiers: Vomiting type: unspecified Vomiting Intractability: non-intractable Qualified Code(s): R11.2 - Nausea with vomiting, unspecified Gastritis Qualifiers: Gastritis type: alcoholic Chronicity: acute Gastritis bleeding: without bleeding Qualified Code(s): K29.20 - Alcoholic gastritis without bleeding Alcohol intoxication Qualifiers: Complication of substance-induced condition: uncomplicated Qualified Code(s): F10.920 - Alcohol use, unspecified with intoxication, uncomplicated Condition: Stable Record reviewed to determine appropriate education?: Yes Instructions: ED PUD Vs Gastritis Follow-Up: Rah Beckett PA-C [Primary Care Provider] - Prescriptions: Famotidine 20 mg PO DAILY #30 tablet LORazepam [Ativan] 1 mg PO Q6H PRN #20 tablet PRN Reason: Alcohol Withdrawal Ondansetron Odt [Zofran] 4 mg TL Q6H PRN #20 tablet PRN Reason: Nausea / Vomiting Comments: Avoid excess alcohol. Try to quit drinking if you can. Use Ativan if needed for alcohol withdrawal type symptoms. Ondansetron if needed for nausea. Presumably you have an irritated stomach and so take famotidine acid reducing medicine daily for the next couple weeks to a month. Stay well-hydrated. [place] food initially through the day today and progress as tolerated. Recheck if not improved well over the next couple of days and return sooner if worse.
[2019-03-23] MEDS ORDERED: SODIUM CHLORIDE 0.9% 1,000 ML IV ONE (21:14)
[2019-03-23] MEDS ORDERED: LIDOCAINE VISCOUS 2% 15 ML UDC MM STA (21:15)
[2019-03-23] MEDS ORDERED: MAG HYDROX/AL HYDROX/SIMETH 30 ML UDC PO STA (21:15)
[2019-03-23] MEDS ORDERED: FAMOTIDINE 20 MG/2 ML VIAL IVP STA (21:15)
[2019-03-23] MEDS ORDERED: ONDANSETRON 4 MG/2 ML VIAL IVP STA (21:15)
[2019-03-23 21:36] LABS: BASOPHILS # (AUTO) 0.1 10^3/uL (0.0-0.1); BASOPHILS % (AUTO) 1.1 %; EOSINOPHILS % (AUTO) 0.4 %; HGB - HEMOGLOBIN 11.7 g/dL (14.0-18.0); LYMPHOCYTES # (AUTO) 1.7 10^3/uL (1.5-3.5); LYMPHOCYTES % (AUTO) 38.4 %; MEAN CORPUSCULAR HEMOGLOBIN 32.9 pg (27.0-31.0); MEAN CORPUSCULAR HGB CONC 33.9 g/dL (32.0-36.0); MEAN CORPUSCULAR VOLUME 96.9 fL (80.0-94.0); MEAN PLATELET VOLUME 9.3 fL (7.4-11.4); MONOCYTES # (AUTO) 0.4 10^3/uL (0.0-1.0); MONOCYTES % (AUTO) 9.6 %; NEUTROPHILS # (AUTO) 2.3 10^3/uL (1.5-6.6); NEUTROPHILS % (AUTO) 50.3 %; PLT - PLATELET COUNT 224 10^3/uL (130-450); RED BLOOD COUNT 3.56 10^6/uL (4.70-6.10); RED CELL DISTRIBUTION WIDTH 15.4 % (12.0-15.0); WHITE BLOOD COUNT 4.5 x10^3/uL (4.8-10.8)
[2019-03-23 21:54] LABS: ALBUMIN 3.6 g/dL (3.2-5.5); ALBUMIN/GLOBULIN RATIO 1.2 (1.0-2.2); CALCIUM 8.5 mg/dL (8.5-10.3); CREATININE 0.7 mg/dL (0.6-1.2); MAGNESIUM 1.8 mg/dL (1.7-2.8); TOTAL PROTEIN 6.5 g/dL (6.7-8.2)
[2019-03-23] MEDS ORDERED: ACETAMINOPHEN 1,000 MG/100 ML 100 ML IV STA (23:22)
[2019-03-23] MEDS ORDERED: HYDROmorphone 1 MG/ML CARPUJECT IVP STA (23:22)
[2019-03-24] MEDS ORDERED: ONDANSETRON ODT 4 MG Prepack 2 TL PRN (01:15)
[2019-03-24 02:02] VITALS: BP 110/68
== END 2019-03-24 01:25 | disposition home or self-care (01) ==
LOC: EDUNIT# → ED 20:49
DX: K29.20 Alcoholic gastritis without bleeding (principal); F10.229 Alcohol dependence with intoxication, unspecified; I10 Essential (primary) hypertension; Z66 Do not resuscitate
CPT/HCPCS: 36415; 80053; 83690; 83735; 85025; 96361; 96365; 96375; 99284; A9270; J0131; J1170; 80320

== ENCOUNTER 2019-03-25 17:56 | Outpatient (CLI) | payer MEDICARE, MEDICAID | END 2019-03-25 17:57 | disposition critical access hospital (66) | LOC: EMS 17:56 | PROVIDERS: ATTEND Surgery | DX: R10.10 Upper abdominal pain, unspecified (principal); Z72.89 Other problems related to lifestyle | CPT/HCPCS: A0425; A0429 ==

== ENCOUNTER 2019-03-25 18:13 | Emergency (ER) | payer MEDICARE, MEDICAID ==
[2019-03-25] MEDS ORDERED: ONDANSETRON 4 MG/2 ML VIAL IVP STA (18:55)
[2019-03-25] MEDS ORDERED: FOLIC ACID INJ 1 MG, THIAMINE INJ 100 MG, MAGNESIUM SULFATE 2 GM, MULTIVITAMIN 10 ML in... IV STA ×5 (18:55)
[2019-03-25] MEDS ORDERED: PANTOPRAZOLE 40 MG VIAL IVP STA (18:55)
[2019-03-25 19:51] LABS: MUDS CUTOFF CONCENTRATIONS CUTOFF CONC BELOW:
[2019-03-25 20:06] LABS: ALBUMIN 3.8 g/dL (3.2-5.5); ALBUMIN/GLOBULIN RATIO 1.2 (1.0-2.2); BILIRUBIN,TOTAL 1.1 mg/dL (0.2-1.0); CALCIUM 8.7 mg/dL (8.5-10.3); CREATININE 0.7 mg/dL (0.6-1.2); TOTAL PROTEIN 7.1 g/dL (6.7-8.2)
[2019-03-25 20:07] LABS: BASOPHILS # (AUTO) 0.1 10^3/uL (0.0-0.1); BASOPHILS % (AUTO) 1.3 %; EOSINOPHILS # (AUTO) 0.1 10^3/uL (0.0-0.7); HGB - HEMOGLOBIN 12.3 g/dL (14.0-18.0); LYMPHOCYTES # (AUTO) 1.6 10^3/uL (1.5-3.5); LYMPHOCYTES % (AUTO) 40.7 %; MEAN CORPUSCULAR HEMOGLOBIN 33.2 pg (27.0-31.0); MEAN CORPUSCULAR HGB CONC 34.1 g/dL (32.0-36.0); MEAN CORPUSCULAR VOLUME 97.6 fL (80.0-94.0); MEAN PLATELET VOLUME 9.4 fL (7.4-11.4); MONOCYTES # (AUTO) 0.3 10^3/uL (0.0-1.0); MONOCYTES % (AUTO) 8.4 %; NEUTROPHILS # (AUTO) 1.9 10^3/uL (1.5-6.6); NEUTROPHILS % (AUTO) 47.3 %; PLT - PLATELET COUNT 216 10^3/uL (130-450); RED CELL DISTRIBUTION WIDTH 15.1 % (12.0-15.0); WHITE BLOOD COUNT 3.9 x10^3/uL (4.8-10.8)
[2019-03-25 20:09] LABS: BILIRUBIN,URINE NEGATIVE (NEGATIVE); GLUCOSE, URINE (UA) NEGATIVE (NEGATIVE); KETONES,URINE (UA) 15 mg/dL (NEGATIVE); LEUKOCYTE ESTERASE, URINE NEGATIVE (NEGATIVE); NITRITE,URINE NEGATIVE (NEGATIVE); OCCULT BLOOD,URINE NEGATIVE (NEGATIVE); PH,URINE 6.5 PH (5.0-7.5); PROTEIN,URINE NEGATIVE (NEGATIVE); UROBILINOGEN,URINE 0.2 (NORMAL) E.U./dL (NORMAL)
[2019-03-25 20:10] LABS: CLARITY,URINE CLEAR (CLEAR)
--- NOTE | 2019-03-25 20:10 | CT Report ---
Reason: fall, head injury Procedure Date: 03/25/2019 Accession Number: [id number] / [id number] Procedure: CT - HEAD WO CPT Code: FULL RESULT: EXAM: CT HEAD EXAM DATE: 03/25/2019 07:33 PM. CLINICAL HISTORY: Fall. Head injury. COMPARISON: CERVICAL SPINE W/O 12/03/2018 1:58 PM HEAD W/O 12/03/2018 1:58 PM. TECHNIQUE: Multiaxial CT images were obtained from the foramen magnum to the vertex. Reformats: Sagittal and coronal. IV contrast: None. In accordance with CT protocol optimization, one or more of the following dose reduction techniques were utilized for this exam: automated exposure control, adjustment of mA and/or KV based on patient size, or use of iterative reconstructive technique. FINDINGS: Parenchyma: No intraparenchymal hemorrhage. No evidence of mass, midline shift, or CT findings of infarction. Muhammad-white differentiation is distinct. Extraaxial Spaces: Normal for age. No subdural or epidural collections identified. Ventricles: Normal in size and position. Sinuses and Orbits: Imaged paranasal sinuses, orbits, and mastoids show no significant abnormality. Bones: No evidence of fracture or calvarial defect. Other: None. IMPRESSION: Normal head CT. RADIA
--- NOTE | 2019-03-25 20:13 | CT Report ---
Reason: fall, neck pain Procedure Date: 03/25/2019 Accession Number: [id number] / [id number] Procedure: CT - CERVICAL SPINE WO CPT Code: FULL RESULT: EXAM: CT CERVICAL SPINE WITHOUT CONTRAST DATE: 03/25/2019 07:33 PM. HISTORY: Fall, neck pain. Neck injury. COMPARISONS: CERVICAL SPINE W/O 12/03/2018 1:58 PM. TECHNIQUE: Thin-section axial images were acquired of the cervical spine without contrast. Post-processing: Coronal and sagittal reformats. Other: None. In accordance with CT protocol optimization, one or more of the following dose reduction techniques were utilized for this exam: automated exposure control, adjustment of mA and/or KV based on patient size, or use of iterative reconstructive technique. FINDINGS: Alignment: Levoscoliosis of the cervical spine. No spondylolisthesis. Articular facets are normally aligned. Bones: No acute fracture or bony lesion. Degenerative osteophyte formation. Endplate cystic change. Schmorl's node seen at C7-T1. Interspace Levels/Facets: C1-C2: Degenerative changes of the anterior arch of C1 and the dens. C2-C3: Facet arthropathy. Disk space narrowing. Osteophyte formation. C3-C4: Disk space narrowing. Osteophyte formation. Facet arthropathy. Mild bilateral neural foraminal narrowing. C4-C5: Disk space narrowing. Osteophyte formation. Facet arthropathy. Uncovertebral hypertrophy. C5-C6: Disk space narrowing. Osteophyte formation. Uncovertebral hypertrophy. Facet arthropathy. Mild to moderate right and mild left neural foraminal narrowing. C6-C7: Disk space narrowing. Osteophyte formation. Uncovertebral hypertrophy. Facet arthropathy. Mild central canal narrowing. Mild bilateral neural foraminal narrowing. C7-T1: Disk space narrowing. Osteophyte formation. Facet arthropathy. Musculature: Normal. No fatty atrophy. Other: The paravertebral and prevertebral soft tissues are unremarkable. Included portions of the left lung apex is clear. Airway is clear. No enlarged cervical lymph nodes. Skull base is unremarkable. Mild right maxillary sinus mucosal thickening. IMPRESSION: 1. No acute cervical spine abnormalities are identified. 2. Degenerative changes of the cervical spine without significant change. RADIA
[2019-03-25 20:21] LABS: AMPHETAMINE SCREEN,URINE NEGATIVE (NEGATIVE); BENZODIAZEPINES SCREEN, URINE POSITIVE (NEGATIVE); COCAINE SCREEN URINE NEGATIVE (NEGATIVE); METHADONE SCREEN, URINE NEGATIVE (NEGATIVE); METHAMPHETAMINES SCREEN, URINE NEGATIVE (NEGATIVE); OPIATE SCREEN, URINE NEGATIVE (NEGATIVE); OXYCODONE SCREEN, URINE NEGATIVE (NEGATIVE); PROPOXYPHENE SCREEN, URINE NEGATIVE (NEGATIVE); TRICYCLIC ANTIDEPRESSANT,URINE NEGATIVE (NEGATIVE)
--- NOTE | 2019-03-25 20:53 | ED Physician Documentation ---
History of Present Illness - Stated complaint Stated Complaint: AMS - Chief complaint Chief Complaint: General - History obtained from History obtained from: Patient, EMS - History of Present Illness Timing: Today Pain level max: 7 Pain level now: 7 - Additonal information Additional information: Patient intoxicated today, slid down next to his car. He thinks he may have struck his head is not sure. He has chronic abdominal pain. This is no worse today than usual. No back pain. No vomiting. Nothing makes it better or worse. Review of Systems Ten Systems: 10 systems reviewed and negative Constitutional: denies: Fever, Myalgias Ears: denies: Ear pain Nose: denies: Rhinorrhea / runny nose, Congestion Throat: denies: Sore throat Cardiac: denies: Chest pain / pressure Respiratory: denies: Cough GI: denies: Vomiting, Diarrhea Skin: denies: Rash Musculoskeletal: denies: Back pain Neurologic: denies: Focal weakness, Numbness, Confused, LOC PD PAST MEDICAL HISTORY - Past Medical History Past Medical History: Yes Cardiovascular: Hypertension, High cholesterol Respiratory: Sleep apnea, CPAP use Neuro: Other Endocrine/Autoimmune: None, Other GI: GERD, Pancreatitis : Incontinence HEENT: None Psych: Depression, Anxiety, Panic attacks, Claustrophobia Musculoskeletal: Osteoarthritis Derm: None Other Past Medical History: Hx Guillian [place] - Past Surgical History Past Surgical History: Yes Ortho: Hip replacement, Arthroscopic surgery HEENT: Tracheostomy - Present Medications Home Medications: Ambulatory Orders Medication Instructions Recorded Confirmed Gabapentin 300 mg PO QPM 05/23/16 03/23/19 Propranolol [Inderal] 60 mg PO BID 05/23/16 03/23/19 Mirtazapine 7.5 mg PO QPM 08/28/16 03/23/19 Folic Acid 1 mg PO DAILY #30 tablet 08/30/16 03/23/19 Multivitamin [Theragran] 1 tab PO DAILYWM #30 tablet 08/30/16 03/23/19 hydrOXYzine pamoate [Hydroxyzine 50 mg PO 0900,1600 06/15/17 03/23/19 Pamoate] Lorazepam [Ativan] 1 mg PO TID #30 tablet 09/02/17 03/23/19 Thiamine HCl [Vitamin B-1] 100 mg PO DAILY #30 tablet 08/17/18 03/23/19 clonazePAM [Clonazepam] 1 mg PO Q8H PRN #21 tablet 10/20/18 03/23/19 Ibuprofen [Motrin] 800 mg PO Q8H PRN #10 tablet 12/03/18 Famotidine 20 mg PO DAILY #30 tablet 03/24/19 LORazepam [Ativan] 1 mg PO Q6H PRN #20 tablet 03/24/19 Ondansetron Odt [Zofran] 4 mg TL Q6H PRN #20 tablet 03/24/19 - Allergies Allergies/Adverse Reactions: Allergies Allergy/AdvReac Type Severity Reaction Status Date / Time lisinopril Allergy Mild Anaphylaxis Verified 03/25/19 18:27 - Social History Does the pt smoke?: No Smoking Status: Never smoker Does the pt drink ETOH?: Yes Does the pt have substance abuse?: Yes - Immunizations Immunizations are current?: Yes Immunizations: Other immun not current - POLST Patient has POLST: No POLST Status: DNR (pt clearly state to me it is DNR, Pt's mother at the bedside did not say no.) PD ED PE NORMAL - Vitals Vital signs reviewed: Yes - General General: 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, Well developed/nourished - HEENT HEENT: Atraumatic, PERRL, Ears normal, Moist mucous membranes, Pharynx benign - Neck Neck: Supple, no meningeal sign, No bony TTP - Cardiac Cardiac: RRR, Strong equal pulses - Respiratory Respiratory: No respiratory distress, Clear bilaterally - Abdomen Abdomen: Soft, Non tender, Non distended - Derm Derm: Warm and dry - Extremities Extremities: No edema, No calf tenderness / cord - Neuro Neuro: 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 - Psych Psych: Normal mood, Normal affect Results - Vitals Vitals: Vital Signs - 24 hr 03/25/19 03/25/19 03/25/19 18:13 18:30 20:25 Temperature 36.7 C Heart Rate 73 70 72 Respiratory 16 16 16 Rate Blood Pressure 120/92 H 102/63 111/83 H O2 Saturation 98 96 94 03/25/19 21:05 Temperature Heart Rate 72 Respiratory 16 Rate Blood Pressure 125/73 O2 Saturation 97 Oxygen O2 Source Room air - Labs Labs: Laboratory Tests 03/25/19 03/25/19 03/25/19 19:45 19:50 19:50 WBC 3.9 L RBC 3.70 L Hgb 12.3 L Hct 36.1 L MCV 97.6 H MCH 33.2 H MCHC 34.1 RDW 15.1 H Plt Count 216 MPV 9.4 Neut # (Auto) 1.9 Lymph # (Auto) 1.6 [place] # (Auto) 0.3 Eos # (Auto) 0.1 Baso # (Auto) 0.1 Absolute Nucleated RBC 0.00 Nucleated RBC % 0.0 Sodium 137 Potassium 4.0 Chloride 96 L Carbon Dioxide 26 Anion Gap 15.0 H BUN 9 Creatinine 0.7 Estimated GFR (MDRD) 117 Glucose 85 Calcium 8.7 Total Bilirubin 1.1 H AST 101 H ALT 42 Alkaline Phosphatase 115 Total Protein 7.1 Albumin 3.8 Globulin 3.3 Albumin/Globulin Ratio 1.2 Lipase 24 Urine Color YELLOW Urine Clarity CLEAR Urine pH 6.5 Ur Specific [place] 1.010 Urine Protein NEGATIVE Urine Glucose (UA) NEGATIVE Urine Ketones 15 H Urine Occult Blood NEGATIVE Urine Nitrite NEGATIVE Urine Bilirubin NEGATIVE Urine Urobilinogen 0.2 (NORMAL) Ur Leukocyte Esterase NEGATIVE Ur Microscopic Review NOT INDICATED Urine Culture Comments NOT INDICATED Urine Opiates Screen NEGATIVE Ur Oxycodone Screen NEGATIVE Urine Methadone Screen NEGATIVE Ur Propoxyphene Screen NEGATIVE Ur Barbiturates Screen NEGATIVE Ur Tricyclics Screen NEGATIVE Ur Phencyclidine Scrn NEGATIVE Ur Amphetamine Screen NEGATIVE U Methamphetamines Scrn NEGATIVE U Benzodiazepines Scrn POSITIVE H Urine Cocaine Screen NEGATIVE U Cannabinoids Screen NEGATIVE Ethyl Alcohol 341.4 - Rads (name of study) Head CT Radiology: Prelim report reviewed, EMP read contemporaneously, See rad report (No acute abnormality) Cervical spine CT Radiology: Prelim report reviewed, EMP read contemporaneously, See rad report (No acute abnormality) PD MEDICAL DECISION MAKING - ED course Complexity details: reviewed results, re-evaluated patient, considered differential, d/w patient ED course: 54-year-old male presents to the emergency department with alcohol intoxication. He has an alcoholic and after a few hours in the emergency department and a banana bag he is speaking clearly and ambulating with a steady gait. He request to go home at this time. Counseled to quit drinking. No acute findings on laboratory testing or radiographic imaging. Patient counseled regarding signs and symptoms for which I believe and urgent re-evaluation would be necessary. Patient with good understanding of and agreement to plan and is comfortable going home at this time This document was made in part using voice recognition software. While efforts are made to proofread this document, sound alike and grammatical errors may occur. Departure - Departure Disposition: 01 Home, Self Care Clinical Impression: Alcohol intoxication Qualifiers: Complication of substance-induced condition: uncomplicated Qualified Code(s): F10.920 - Alcohol use, unspecified with intoxication, uncomplicated Condition: Good Instructions: ED Alcohol Intoxication Follow-Up: your,doctor in 1 week [Other] Comments: You need to stop drinking as the alcohol will eventually kill you. Return if you worsen Discharge Date/Time: 03/25/19 21:14
[2019-03-25 21:06] VITALS: BP 125/73
== END 2019-03-25 21:14 | disposition home or self-care (01) ==
LOC: EDUNIT# → ED 18:13
DX: F10.229 Alcohol dependence with intoxication, unspecified (principal); M48.02 Spinal stenosis, cervical region; M25.78 Osteophyte, vertebrae; M41.82 Other forms of scoliosis, cervical region; I10 Essential (primary) hypertension; Z66 Do not resuscitate
CPT/HCPCS: 36415; 70450; 72125; 80053; 81003; 83690; 85025; 96365; 96375; 99283; 99284; J3411; 80306; 80320; 81001; 87086

== ENCOUNTER 2019-04-14 15:15 | Outpatient (CLI) | payer MEDICARE ==
[2019-04-14 19:17] LABS: BASOPHILS % (AUTO) 0.9 %; EOSINOPHILS # (AUTO) 0.1 10^3/uL (0.0-0.7); EOSINOPHILS % (AUTO) 3.4 %; HGB - HEMOGLOBIN 11.8 g/dL (14.0-18.0); LYMPHOCYTES % (AUTO) 27.2 %; MEAN CORPUSCULAR HEMOGLOBIN 32.7 pg (27.0-31.0); MEAN CORPUSCULAR VOLUME 96.1 fL (80.0-94.0); MEAN PLATELET VOLUME 10.6 fL (7.4-11.4); MONOCYTES # (AUTO) 0.5 10^3/uL (0.0-1.0); MONOCYTES % (AUTO) 13.2 %; NEUTROPHILS # (AUTO) 1.9 10^3/uL (1.5-6.6); PLT - PLATELET COUNT 169 10^3/uL (130-450); RED BLOOD COUNT 3.61 10^6/uL (4.70-6.10); RED CELL DISTRIBUTION WIDTH 14.9 % (12.0-15.0); WHITE BLOOD COUNT 3.5 x10^3/uL (4.8-10.8)
[2019-04-14 19:30] LABS: ALBUMIN 4.3 g/dL (3.2-5.5); ALBUMIN/GLOBULIN RATIO 1.5 (1.0-2.2); BILIRUBIN,TOTAL 1.6 mg/dL (0.2-1.0); CALCIUM 9.3 mg/dL (8.5-10.3); CREATININE 1.3 mg/dL (0.6-1.2); TOTAL PROTEIN 7.1 g/dL (6.7-8.2)
[2019-04-14 19:38] LABS: THYROID STIMULATING HORMONE 2.97 uIU/mL (0.34-5.60)
[2019-04-14 19:40] LABS: FREE T4 (FREE THYROXINE) 0.82 ng/dL (0.58-1.64)
== END 2019-04-14 23:59 | disposition home or self-care (01) ==
LOC: LAB.N 15:15
PROVIDERS: ATTEND Physician Assistant Medical
DX: K29.20 Alcoholic gastritis without bleeding (principal); E83.42 Hypomagnesemia; E03.9 Hypothyroidism, unspecified
CPT/HCPCS: 36415; 80053; 82150; 83690; 83735; 84439; 84443; 84481; 85025; 86800

== ENCOUNTER 2019-05-04 23:14 | Outpatient (CLI) | payer MEDICARE | END 2019-05-04 23:59 | disposition critical access hospital (66) | LOC: EMS 23:14 | PROVIDERS: ATTEND Surgery | DX: R53.1 Weakness (principal); R06.00 Dyspnea, unspecified | CPT/HCPCS: A0425; A0429 ==

== ENCOUNTER 2019-05-04 23:31 | Emergency (ER) | payer MEDICARE ==
[2019-05-04 23:40] VITALS: BP 115/73
[2019-05-04] MEDS ORDERED: FOLIC ACID INJ 1 MG, THIAMINE INJ 100 MG, MAGNESIUM SULFATE 2 GM, MULTIVITAMIN 10 ML in... IV STA ×5 (23:44)
[2019-05-05 00:08] LABS: BASOPHILS % (AUTO) 1.1 %; EOSINOPHILS # (AUTO) 0.1 10^3/uL (0.0-0.7); EOSINOPHILS % (AUTO) 2.7 %; HGB - HEMOGLOBIN 13.6 g/dL (14.0-18.0); LYMPHOCYTES # (AUTO) 1.8 10^3/uL (1.5-3.5); LYMPHOCYTES % (AUTO) 49.6 %; MEAN CORPUSCULAR HEMOGLOBIN 33.6 pg (27.0-31.0); MEAN CORPUSCULAR HGB CONC 34.9 g/dL (32.0-36.0); MEAN CORPUSCULAR VOLUME 96.3 fL (80.0-94.0); MEAN PLATELET VOLUME 9.4 fL (7.4-11.4); MONOCYTES # (AUTO) 0.5 10^3/uL (0.0-1.0); MONOCYTES % (AUTO) 12.7 %; NEUTROPHILS # (AUTO) 1.3 10^3/uL (1.5-6.6); NEUTROPHILS % (AUTO) 33.6 %; PLT - PLATELET COUNT 160 10^3/uL (130-450); RED BLOOD COUNT 4.05 10^6/uL (4.70-6.10); RED CELL DISTRIBUTION WIDTH 13.5 % (12.0-15.0); WHITE BLOOD COUNT 3.7 x10^3/uL (4.8-10.8)
[2019-05-05] MEDS ORDERED: THIAMINE 100 MG/1 ML 2 ML MDV ONE (00:10)
[2019-05-05] MEDS ORDERED: MAGNESIUM SULFATE 1 GM/2 ML VIAL ONE (00:17)
[2019-05-05 00:43] LABS: CARBON DIOXIDE - CO2 26 mmol/L (21-32); CHLORIDE 101 mmol/L (101-111); SODIUM 140 mmol/L (135-145)
[2019-05-05 00:44] LABS: ALBUMIN 4.2 g/dL (3.2-5.5); ALBUMIN/GLOBULIN RATIO 1.3 (1.0-2.2); ALKALINE PHOSPHATASE 109 IU/L (42-121); ALT ALANINE AMINOTRANSFERASE 71 IU/L (10-60); AST ASPARTATE AMINOTRANSFERASE 170 IU/L (10-42); BILIRUBIN,TOTAL 0.6 mg/dL (0.2-1.0); BUN - BLOOD UREA NITROGEN 13 mg/dL (6-20); CALCIUM 9.6 mg/dL (8.5-10.3); CREATININE 0.9 mg/dL (0.6-1.2); CRP - C-REACTIVE PROTEIN < 0.5 mg/dL (0-1.0); GFR - MDRD 88 (>89); GLUCOSE 180 mg/dL (70-100); TOTAL PROTEIN 7.5 g/dL (6.7-8.2)
[2019-05-05 00:45] LABS: LIPASE 21 U/L (22-51)
--- NOTE | 2019-05-05 03:48 | ED Physician Documentation ---
History of Present Illness - Stated complaint Stated Complaint: Guillian [place] Syndrome Flare Up - Chief complaint Chief Complaint: Neuro - History obtained from History obtained from: Patient, EMS - History of Present Illness Timing: Today - Additonal information Additional information: 54-year-old male with remote history of [place] and a history of alcohol abuse has developed some difficulty walking and he feels that he is having an exacerbation of his [place]. He denies current use of alcohol. He does smell heavily of alcohol. Review of Systems Constitutional: denies: Fever Eyes: denies: Decreased vision Ears: denies: Ear pain Nose: denies: Rhinorrhea / runny nose, Congestion Throat: denies: Sore throat Cardiac: denies: Chest pain / pressure, Palpitations Respiratory: denies: Dyspnea, Cough GI: denies: Abdominal Pain, Abdominal Swelling, Nausea, Vomiting : denies: Dysuria Skin: denies: Rash Musculoskeletal: denies: Neck pain, Back pain, Extremity pain, Extremity swelling Neurologic: reports: Numbness. denies: Generalized weakness, Focal weakness, Difficulty speaking, Headache PD PAST MEDICAL HISTORY - Past Medical History Past Medical History: No Cardiovascular: Hypertension, High cholesterol Respiratory: Sleep apnea, CPAP use Neuro: Other Endocrine/Autoimmune: None, Other GI: GERD, Pancreatitis : Incontinence HEENT: None Psych: Depression, Anxiety, Panic attacks, Claustrophobia Musculoskeletal: Osteoarthritis Derm: None - Past Surgical History Past Surgical History: Yes Ortho: Hip replacement, Arthroscopic surgery HEENT: Tracheostomy - Present Medications Home Medications: Ambulatory Orders Medication Instructions Recorded Confirmed Gabapentin 300 mg PO QPM 05/23/16 03/23/19 Propranolol [Inderal] 60 mg PO BID 05/23/16 03/23/19 Mirtazapine 7.5 mg PO QPM 08/28/16 03/23/19 Folic Acid 1 mg PO DAILY #30 tablet 08/30/16 03/23/19 Multivitamin [Theragran] 1 tab PO DAILYWM #30 tablet 08/30/16 03/23/19 hydrOXYzine pamoate [Hydroxyzine 50 mg PO 0900,1600 06/15/17 03/23/19 Pamoate] Lorazepam [Ativan] 1 mg PO TID #30 tablet 09/02/17 03/23/19 Thiamine HCl [Vitamin B-1] 100 mg PO DAILY #30 tablet 08/17/18 03/23/19 clonazePAM [Clonazepam] 1 mg PO Q8H PRN #21 tablet 10/20/18 03/23/19 Ibuprofen [Motrin] 800 mg PO Q8H PRN #10 tablet 12/03/18 Famotidine 20 mg PO DAILY #30 tablet 03/24/19 LORazepam [Ativan] 1 mg PO Q6H PRN #20 tablet 03/24/19 Ondansetron Odt [Zofran] 4 mg TL Q6H PRN #20 tablet 03/24/19 - Allergies Allergies/Adverse Reactions: Allergies Allergy/AdvReac Type Severity Reaction Status Date / Time lisinopril Allergy Mild Anaphylaxis Verified 05/04/19 23:39 - Social History Does the pt smoke?: No Smoking Status: Never smoker Does the pt drink ETOH?: Yes Does the pt have substance abuse?: Yes - Immunizations Immunizations are current?: Yes Immunizations: Other immun not current - POLST Patient has POLST: No POLST Status: DNR (pt clearly state to me it is DNR, Pt's mother at the bedside did not say no.) PD ED PE NORMAL - Vitals Vital signs reviewed: Yes - General General: No acute distress, Well developed/nourished, Other (smells heavily of alcohol) - HEENT HEENT: Atraumatic, PERRL, EOMI, Other (dry mucous membranes ) - Neck Neck: Supple, no meningeal sign, No bony TTP - Cardiac Cardiac: RRR, No murmur - Respiratory Respiratory: No respiratory distress, Clear bilaterally - Abdomen Abdomen: Soft, Non tender - Back Back: No CVA TTP, No spinal TTP - Derm Derm: Normal color, Warm and dry, No rash - Extremities Extremities: No deformity, No edema, No calf tenderness / cord, Other (There is a reduction in sensation subjectively in the calves) - Neuro 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, No motor deficit, Normal speech Eye Opening: Spontaneous Motor: Obeys Commands Verbal: Oriented GCS Score: 15 - Psych Psych: Normal mood, Normal affect Results - Vitals Vitals: Vital Signs - 24 hr 05/04/19 23:30 Temperature 35.8 C L Heart Rate 73 Respiratory 16 Rate Blood Pressure 115/73 O2 Saturation 97 Oxygen O2 Source Room air - Labs Labs: Laboratory Tests 05/04/19 05/04/19 05/04/19 23:55 23:55 23:55 WBC 3.7 L RBC 4.05 L Hgb 13.6 L Hct 39.0 L MCV 96.3 H MCH 33.6 H MCHC 34.9 RDW 13.5 Plt Count 160 MPV 9.4 Neut # (Auto) 1.3 L Lymph # (Auto) 1.8 [place] # (Auto) 0.5 Eos # (Auto) 0.1 Baso # (Auto) 0.0 Absolute Nucleated RBC 0.00 Nucleated RBC % 0.0 ESR 6 Sodium 140 Potassium 4.6 Chloride 101 Carbon Dioxide 26 Anion Gap 13.0 BUN 13 Creatinine 0.9 Estimated GFR (MDRD) 88 L Glucose 180 H Calcium 9.6 Total Bilirubin 0.6 AST 170 H ALT 71 H Alkaline Phosphatase 109 C-Reactive Protein < 0.5 Total Protein 7.5 Albumin 4.2 Globulin 3.3 Albumin/Globulin Ratio 1.3 Lipase 21 L Ethyl Alcohol 319.2 PD MEDICAL DECISION MAKING - ED course Complexity details: reviewed old records, reviewed results, re-evaluated patient, considered differential, d/w patient ED course: 54-year-old male with chief complaint of ataxic gait is intoxicated. He has no evidence to suggest [place] syndrome. He is administered a banana bag IV. Departure - Departure Disposition: 01 Home, Self Care Clinical Impression: Alcohol intoxication Qualifiers: Complication of substance-induced condition: uncomplicated Qualified Code(s): F10.920 - Alcohol use, unspecified with intoxication, uncomplicated Instructions: ED Alcohol Intoxication Follow-Up: VINCENZO BANKS MD [Provider Admit Priv/Credential] -
== END 2019-05-05 04:58 | disposition home or self-care (01) ==
LOC: EDUNIT# → ED 23:31
DX: F10.920 Alcohol use, unspecified with intoxication, uncomplicated (principal); I10 Essential (primary) hypertension
CPT/HCPCS: 36415; 80053; 83690; 85025; 85651; 86140; 96365; 96366; 99283; 99284; J3411; 80320

== ENCOUNTER 2019-06-14 13:23 | Outpatient (CLI) | payer MEDICARE | END 2019-06-14 13:24 | disposition critical access hospital (66) | LOC: EMS 13:23 | PROVIDERS: ATTEND Surgery | DX: S69.92XA Unspecified injury of left wrist, hand and finger(s), initial encounter (principal); R41.82 Altered mental status, unspecified; W18.30XA Fall on same level, unspecified, initial encounter; Z72.89 Other problems related to lifestyle ==

== ENCOUNTER 2019-06-14 13:49 | Emergency (ER) | payer MEDICAID, MEDICARE ==
[2019-06-14] MEDS ORDERED: SODIUM CHLORIDE 0.9% 1,000 ML IV ONE (13:55)
[2019-06-14] MEDS ORDERED: THIAMINE INJ 100 MG in SODIUM CHLORIDE 0.9% 50 ML IV STA (13:55)
--- NOTE | 2019-06-14 13:59 | ED Physician Documentation ---
PD HPI HEAD INJURY - Stated complaint Stated Complaint: GLF - Chief complaint Chief Complaint: Neuro - History obtained from History obtained from: Patient (54-year-old gentleman with history of alcoholism presents by ambulance after a fall. Reportedly was drinking heavily this morning and then drove himself to the doctor's office. Brought in by ambulance after a fall, it was poorly described to me. He injured his left fifth finger, his head. He also complains of back pain. Also right hip pain which has been replaced in the past but reportedly was walking around fine after the fall. In route there was a reported episode of V. tach. It was not recorded.) Review of Systems Unable to obtain: Intoxicated PD PAST MEDICAL HISTORY - Past Medical History Cardiovascular: Hypertension, High cholesterol Respiratory: Sleep apnea, CPAP use Neuro: Other Endocrine/Autoimmune: None, Other GI: GERD, Pancreatitis : Incontinence HEENT: None Psych: Depression, Anxiety, Panic attacks, Claustrophobia Musculoskeletal: Osteoarthritis Derm: None - Past Surgical History Past Surgical History: Yes Ortho: Hip replacement, Arthroscopic surgery HEENT: Tracheostomy - Present Medications Home Medications: Ambulatory Orders Medication Instructions Recorded Confirmed Gabapentin 300 mg PO QPM 05/23/16 03/23/19 Propranolol [Inderal] 60 mg PO BID 05/23/16 03/23/19 Mirtazapine 7.5 mg PO QPM 08/28/16 03/23/19 Folic Acid 1 mg PO DAILY #30 tablet 08/30/16 03/23/19 Multivitamin [Theragran] 1 tab PO DAILYWM #30 tablet 08/30/16 03/23/19 hydrOXYzine pamoate [Hydroxyzine 50 mg PO 0900,1600 06/15/17 03/23/19 Pamoate] Lorazepam [Ativan] 1 mg PO TID #30 tablet 09/02/17 03/23/19 Thiamine HCl [Vitamin B-1] 100 mg PO DAILY #30 tablet 08/17/18 03/23/19 clonazePAM [Clonazepam] 1 mg PO Q8H PRN #21 tablet 10/20/18 03/23/19 Ibuprofen [Motrin] 800 mg PO Q8H PRN #10 tablet 12/03/18 Famotidine 20 mg PO DAILY #30 tablet 03/24/19 LORazepam [Ativan] 1 mg PO Q6H PRN #20 tablet 03/24/19 Ondansetron Odt [Zofran] 4 mg TL Q6H PRN #20 tablet 03/24/19 - Allergies Allergies/Adverse Reactions: Allergies Allergy/AdvReac Type Severity Reaction Status Date / Time lisinopril Allergy Mild Anaphylaxis Verified 05/04/19 23:39 - Social History Does the pt smoke?: No Smoking Status: Never smoker Does the pt drink ETOH?: Yes Does the pt have substance abuse?: Yes - Immunizations Immunizations are current?: Yes Immunizations: Other immun not current - POLST Patient has POLST: No POLST Status: DNR (pt clearly state to me it is DNR, Pt's mother at the bedside did not say no.) PD ED PE NORMAL - Vitals Vital signs reviewed: Yes - General General: No acute distress, Well developed/nourished - HEENT HEENT: PERRL, EOMI, Other (Some bony tenderness of the left maxilla) - Neck Neck: Other (He was placed in a c-collar after initial evaluation given his intoxicated status despite lack of midline spinal tenderness.) - Cardiac Cardiac: RRR, No murmur, Other (Tender to the left ribs diffusely and also the left upper quadrant) - Respiratory Respiratory: No respiratory distress, Clear bilaterally - Abdomen Abdomen: Other (Left upper quadrant tenderness) - Male Male : Steel 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 No hip tenderness on the right.) - Neuro Neuro: No motor deficit, No sensory deficit, Other (Slow slurred speech, clinically intoxicated on arrival.) Results - Vitals Vitals: Vital Signs - 24 hr 06/14/19 06/14/19 06/14/19 13:52 14:59 16:07 Temperature 36.7 C 37 C 37.3 C Heart Rate 75 77 73 Respiratory 20 14 16 Rate Blood Pressure 116/90 H 103/80 123/93 H O2 Saturation 100 94 97 Oxygen O2 Source Room air - EKG (time done) 1418 Rate: Rate (enter#) (75) Rhythm: NSR Palmer: Normal Intervals: Normal MI QRS: Normal Ischemia: Normal ST segments Computer interpretation: Agree with computer - Labs Labs: Laboratory Tests 06/14/19 06/14/19 06/14/19 14:38 14:38 14:38 WBC 3.3 L RBC 3.57 L Hgb 11.9 L Hct 34.7 L MCV 97.2 H MCH 33.3 H MCHC 34.3 RDW 14.0 Plt Count 133 MPV 9.6 Neut # (Auto) 1.2 L Lymph # (Auto) 1.3 L Sumter # (Auto) 0.6 Eos # (Auto) 0.2 Baso # (Auto) 0.0 Absolute Nucleated RBC 0.00 Nucleated RBC % 0.0 Sodium 142 Potassium 3.8 Chloride 105 Carbon Dioxide 25 Anion Gap 12.0 BUN 12 Creatinine 0.8 Estimated GFR (MDRD) 100 Glucose 94 Calcium 8.3 L Magnesium 1.5 L Total Bilirubin 0.9 AST 101 H ALT 50 Alkaline Phosphatase 110 Troponin I High Sens < 2.3 L Total Protein 6.1 L Albumin 3.6 Globulin 2.5 Albumin/Globulin Ratio 1.4 Lipase 108 H - Rads (name of study) XR L hand Radiology: EMP read contemporaneously 3 views of the right hip Radiology: EMP read contemporaneously (Old nonunion and chronic cerclage wire fracture without hardware loosening or acute disease) CT head, neck, face, chest abdomen and pelvis Radiology: EMP read contemporaneously (A lot of old trauma, rib fractures, facial contusion. No acute fractures or acute trauma today.) R hand 3v Radiology: EMP read contemporaneously (Old degenerative changes without acute fracture) Procedures - Splint (location) LUE Splint applied by: Tech Type of splint: Fiberglass, Short arm, Ulnar gutter Other: Patient tolerated well, No complications, Neurovascular intact, Good alignment PD MEDICAL DECISION MAKING - ED course ED course: 54-year-old gentleman presents intoxicated which is unfortunately his baseline after a fall. Facial contusion. Because of his intoxicated status thorough imaging was done demonstrating the only acute finding was a left fifth proximal phalanx fracture which was splinted. He was observed until clinical sobriety. Departure - Departure Disposition: 01 Home, Self Care Clinical Impression: Chest wall pain, Strain of right hip, Alcohol intoxication, Alcohol abuse, Hand fracture, left, Head injury Condition: Good Record reviewed to determine appropriate education?: Yes Instructions: ED Alcohol Intoxication, ED Fx Hand Closed Follow-Up: [facility] [Provider Group] Comments: You were seen today because you got drunk and fell. Thankfully the only major injury is the fracture of the left fifth proximal phalanx. Keep the fiberglass splint on and dry, do not remove it. Follow-up with the orthopedic surgeons within the week. Call the number on this form for an appointment. Return for new or worsening symptoms. You need to stop drinking, it is killing you.
[2019-06-14] MEDS ORDERED: IOVERSOL 320 100 ML VIAL IVP ONE ×2 (14:19→16:04)
[2019-06-14 14:53] LABS: BASOPHILS % (AUTO) 1.2 %; EOSINOPHILS # (AUTO) 0.2 10^3/uL (0.0-0.7); EOSINOPHILS % (AUTO) 4.6 %; HGB - HEMOGLOBIN 11.9 g/dL (14.0-18.0); LYMPHOCYTES # (AUTO) 1.3 10^3/uL (1.5-3.5); LYMPHOCYTES % (AUTO) 38.1 %; MEAN CORPUSCULAR HEMOGLOBIN 33.3 pg (27.0-31.0); MEAN CORPUSCULAR HGB CONC 34.3 g/dL (32.0-36.0); MEAN CORPUSCULAR VOLUME 97.2 fL (80.0-94.0); MEAN PLATELET VOLUME 9.6 fL (7.4-11.4); MONOCYTES # (AUTO) 0.6 10^3/uL (0.0-1.0); MONOCYTES % (AUTO) 18.3 %; NEUTROPHILS # (AUTO) 1.2 10^3/uL (1.5-6.6); NEUTROPHILS % (AUTO) 37.5 %; PLT - PLATELET COUNT 133 10^3/uL (130-450); RED BLOOD COUNT 3.57 10^6/uL (4.70-6.10); WHITE BLOOD COUNT 3.3 x10^3/uL (4.8-10.8)
--- NOTE | 2019-06-14 14:54 | XRAY Report ---
Reason: hand inj Procedure Date: 06/14/2019 Accession Number: [id number] / [id number] Procedure: XR - Hand 3 View LT CPT Code: Final Report FULL RESULT: EXAM: LEFT HAND RADIOGRAPHY EXAM DATE: 06/14/2019 02:28 PM. CLINICAL HISTORY: Hand inj. Ground level fall. COMPARISON: HAND 3 VIEW LT 04/30/2018 2:10 PM. TECHNIQUE: 3 views. FINDINGS: Bones: There is an acute transverse fracture at the base of the proximal phalanx of the left fifth finger with mild dorsal impaction. No other acute fracture is identified. There is an old healed fracture of the left fifth metacarpal neck with mild full are angulation. There are old healed transverse fractures of the bases of the left second, third, and fourth metacarpals. There are no lucent or sclerotic lesions. Joints: Normal. No subluxations. Soft Tissues: Mild soft tissue swelling at the left fifth proximal phalanx. IMPRESSION: 1. Acute transverse fracture at the base of the proximal phalanx of the left fifth finger with mild dorsal impaction. 2. Old fractures of the left fifth metacarpal neck and second fourth metacarpal bases. [facility]
--- NOTE | 2019-06-14 14:58 | XRAY Report ---
Reason: hip inj Procedure Date: 06/14/2019 Accession Number: [id number] / [id number] Procedure: XR - Hip w/Pelvis 2-3V RT CPT Code: Final Report FULL RESULT: EXAM: RIGHT HIP RADIOGRAPHY EXAM DATE: 06/14/2019 02:30 PM. CLINICAL HISTORY: Hip inj. Ground-level fall. COMPARISON: HIP W/PELVIS 2-3V RT 12/03/2018 2:05 PM. TECHNIQUE: 4 views. IMPRESSION: 1. As before, there is a right total hip arthroplasty with longstem oncologic femoral component. 2. 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 3. There are cerclage wires around the proximal right femur, 1 of which is fractured, as before. There is no evidence of hardware loosening. 4. No acute fracture is identified at the right proximal femur or in the right hemipelvis. [facility]
[2019-06-14 15:07] LABS: ALBUMIN 3.6 g/dL (3.2-5.5); ALBUMIN/GLOBULIN RATIO 1.4 (1.0-2.2); BILIRUBIN,TOTAL 0.9 mg/dL (0.2-1.0); CALCIUM 8.3 mg/dL (8.5-10.3); CREATININE 0.8 mg/dL (0.6-1.2); MAGNESIUM 1.5 mg/dL (1.7-2.8); TOTAL PROTEIN 6.1 g/dL (6.7-8.2)
--- NOTE | 2019-06-14 16:11 | CT Report ---
Reason: Fall, head/chest/abd inj etoh Procedure Date: 06/14/2019 Accession Number: [id number] / [id number] Procedure: CT - HEAD WO CPT Code: Final Report FULL RESULT: EXAM: CT HEAD EXAM DATE: 06/14/2019 03:57 PM. CLINICAL HISTORY: Fall, head/chest/abd inj etoh. COMPARISON: CERVICAL SPINE W/O 03/25/2019 7:28 PM CERVICAL SPINE W/O 06/14/2019 3:43 PM HEAD W/O 03/25/2019 7:28 PM. TECHNIQUE: Multiaxial CT images were obtained from the foramen magnum to the vertex. Reformats: Sagittal and coronal. IV contrast: None. In accordance with CT protocol optimization, one or more of the following dose reduction techniques were utilized for this exam: automated exposure control, adjustment of mA and/or KV based on patient size, or use of iterative reconstructive technique. FINDINGS: Parenchyma: No intraparenchymal hemorrhage. No evidence of mass, midline shift, or CT findings of infarction. Muhammad-white differentiation is distinct. Extraaxial Spaces: Mild diffuse sulcal prominence, as before. No subdural or epidural collections identified. Ventricles: Normal in size and position. Sinuses and Orbits: Imaged paranasal sinuses, orbits, and mastoids show no significant abnormality. Bones: No evidence of fracture or calvarial defect. Other: None. IMPRESSION: 1. No intracranial hemorrhage. 2. Mild diffuse cerebral volume loss, as before. [facility]IA
--- NOTE | 2019-06-14 16:18 | CT Report ---
Reason: Fall, head/chest/abd inj etoh Procedure Date: 06/14/2019 Accession Number: [id number] / [id number] Procedure: CT - CERVICAL SPINE WO CPT Code: Final Report FULL RESULT: EXAM: CT CERVICAL SPINE WITHOUT CONTRAST DATE: 06/14/2019 03:57 PM. HISTORY: Fall, head/chest/abd inj etoh. COMPARISONS: HEAD W/O 06/14/2019 3:43 PM FACIAL BONES W/O 06/14/2019 3:43 PM CERVICAL SPINE W/O 03/25/2019 7:28 PM. TECHNIQUE: Thin-section axial images were acquired of the cervical spine without contrast. Post-processing: Coronal and sagittal reformats. Other: None. In accordance with CT protocol optimization, one or more of the following dose reduction techniques were utilized for this exam: automated exposure control, adjustment of mA and/or KV based on patient size, or use of iterative reconstructive technique. FINDINGS: Alignment: Mild left convex cervical spine curvature. No subluxation. Bones: No fracture or focal bone lesion from the craniocervical junction through T2. Interspace Levels/Facets: Development of bony fusion at C2-C3. Disk height loss and endplate osteophyte formation indicating moderate degenerative disk disease at C3-C4 through C7-T1. Multilevel right greater than left cervical facet osteoarthritis including mild right C3-C4 facet widening, as before. Musculature: Normal. No fatty atrophy. Other: The paravertebral and prevertebral soft tissues are unremarkable. The lung apices are clear. IMPRESSION: 1. No fracture or subluxation in cervical spine. 2. Moderate multilevel degenerative disk greater than facet disease. 3. Developmental bony fusion at C2-C3. RADIA
--- NOTE | 2019-06-14 16:22 | CT Report ---
Reason: Left facial injury Procedure Date: 06/14/2019 Accession Number: [id number] / [id number] Procedure: CT - MAXILLOFACIAL WO CPT Code: Final Report FULL RESULT: EXAM: CT MAXILLOFACIAL WITHOUT CONTRAST EXAM DATE: 06/14/2019 03:57 PM. CLINICAL HISTORY: Left facial injury. COMPARISONS: CERVICAL SPINE W/O 03/25/2019 7:28 PM. TECHNIQUE: Thin-section axial images were acquired of the face without contrast. Post-processing: Coronal and sagittal reformats. Other: None. In accordance with CT protocol optimization, one or more of the following dose reduction techniques were utilized for this exam: automated exposure control, adjustment of mA and/or KV based on patient size, or use of iterative reconstructive technique. FINDINGS: Soft Tissue: Mild lateral left periorbital contusion. Mild right frontal scalp contusion. Orbits: Retro-orbital hematoma. Negative for orbit fracture. Left preorbital contusion. Bones: No fracture or bone lesion. Interbody and facet joint ankylosis C3 S3. Severe C3-C4 disk degeneration. Severe right C3-C4 facet joint arthrosis with apophyseal joint widening. Severe disk degeneration C4-C5. Moderate bilateral C4-C5 facet joint arthrosis. Temporomandibular Joints: The temporomandibular joints are symmetric and normally located. Sinuses: Normal. No mucosal thickening or fluid levels. Other: None. IMPRESSION: 1. Negative for fracture. 2. Left preorbital contusion. RADIA
--- NOTE | 2019-06-14 16:30 | CT Report ---
Reason: IV only, Fall, head/chest/abd inj etoh Procedure Date: 06/14/2019 Accession Number: [id number] / [id number] Procedure: CT - Abdomen/Pelvis W CPT Code: Final Report FULL RESULT: EXAM: CT ABDOMEN AND PELVIS EXAM DATE: 06/14/2019 04:01 PM. CLINICAL HISTORY: IV only, Fall, head/chest/abd inj etoh. COMPARISONS: ABDOMEN/PELVIS W/ 05/28/2018 10:32 PM. TECHNIQUE: Routine helical CT imaging was performed through the abdomen and pelvis. IV contrast: OPTI 320 100ML. Enteric contrast: No. Reconstructions: Coronal and sagittal. In accordance with CT protocol optimization, one or more of the following dose reduction techniques were utilized for this exam: automated exposure control, adjustment of mA and/or KV based on patient size, or use of iterative reconstructive technique. FINDINGS: Lung Bases: Unremarkable. Liver: Significant low-attenuation hepatic parenchyma suggestive of steatosis. No masses. Gallbladder/Bile Ducts: Unremarkable. Spleen: Normal. Pancreas: Normal. Adrenal Glands: Normal. Kidneys: Normal. No masses or hydronephrosis. Peritoneal Cavity/Bowel: Normal. No free fluid, free air or adenopathy. No masses or acute inflammatory process. The appendix is well visualized and normal. Pelvic Organs: Normal. The bladder and visualized pelvic organs are within normal limits. Normal appendix. Mild diffuse colonic diverticulosis involving sigmoid colon. Vasculature: No aneurysms or other significant abnormality. Bones: Old healed fracture of angle of right eighth rib. Subacute to chronic fractures are seen at posterior left 12th and 11th ribs./ Prosthetic right hip joint is well positioned. No acute displaced fracture. Other: None. IMPRESSION: No acute traumatic abnormality of the abdomen. Diffuse hepatic steatosis. Old healed fracture of angle of right eighth rib. Subacute to chronic fractures are seen at posterior left 12th and 11th ribs RADIA
--- NOTE | 2019-06-14 16:33 | XRAY Report ---
Reason: hand inj Procedure Date: 06/14/2019 Accession Number: [id number] / [id number] Procedure: XR - Hand 3 View RT CPT Code: Final Report FULL RESULT: EXAM: RIGHT HAND RADIOGRAPHY EXAM DATE: 06/14/2019 04:06 PM. CLINICAL HISTORY: Fall, pain. COMPARISON: HAND 3 VIEW LT 06/14/2019 1:57 PM. TECHNIQUE: 3 views. FINDINGS: Bones: Osteopenia. Small ossicle dorsal to the carpus most likely old triquetral avulsion. No definite acute fracture or other bone lesion. Joints: Marked joint space loss in the second MCP joint with mild degenerative changes. Joint space narrowing and slight subluxation of fifth PIP joint. Other joint spaces generally well preserved. Erosion of ulnar styloid process tip versus deformity from old trauma. Soft Tissues: Mild soft tissue swelling. IMPRESSION: 1. Soft tissue swelling. 2. Degenerative and other chronic findings most notably in the second MCP joint. [facility]IA
--- NOTE | 2019-06-14 16:34 | CT Report ---
Reason: FALL, HEAD, NECK, CHEST, ABD, INJ Procedure Date: 06/14/2019 Accession Number: [id number] / [id number] Procedure: CT - CHEST W CPT Code: Final Report FULL RESULT: EXAM: CT CHEST EXAM DATE: 06/14/2019 04:01 PM. CLINICAL HISTORY: Fall. Injury. COMPARISONS: CHEST W/ 04/02/2017 6:39 PM. TECHNIQUE: Routine helical CT imaging was performed through the chest. IV contrast: 100 cc of Optiray 320. Reconstructions: Coronal and sagittal. In accordance with CT protocol optimization, one or more of the following dose reduction techniques were utilized for this exam: automated exposure control, adjustment of mA and/or KV based on patient size, or use of iterative reconstructive technique. FINDINGS: Lungs/Pleura: No nodules, bronchial thickening, consolidation, or edema. Pulmonary vasculature is normal. No pericardial or pleural effusion. No pneumothorax. Mediastinum: Minimal aortic and moderate coronary artery calcification noted. No adenopathy or masses. The heart and great vessels are normal. Bones: Stable minimal S-shaped scoliosis. Old bilateral rib fractures noted. No acute fractures identified. IMPRESSION: No acute chest abnormalities identified. RADIA
[2019-06-14 17:08] VITALS: BP 119/92
== END 2019-06-14 18:01 | disposition home or self-care (01) ==
LOC: EDUNIT# → ED 13:49
DX: R07.89 Other chest pain (principal); S76.011A Strain of muscle, fascia and tendon of right hip, initial encounter; S00.12XA Contusion of left eyelid and periocular area, initial encounter; S62.617A Displaced fracture of proximal phalanx of left little finger, initial encounter for closed fracture; W18.30XA Fall on same level, unspecified, initial encounter; F10.129 Alcohol abuse with intoxication, unspecified; I10 Essential (primary) hypertension; Z66 Do not resuscitate
CPT/HCPCS: 29125; 36415; 70450; 70486; 71260; 72125; 73130; 73502; 74177; 80053; 83690; 83735; 84484; 85025; 93005; 96365; 99284; J3411; J7040; Q9967

== ENCOUNTER 2019-06-24 12:25 | Outpatient (CLI) | payer MEDICARE | END 2019-06-24 12:26 | disposition critical access hospital (66) | LOC: EMS 12:25 | PROVIDERS: ATTEND Surgery | DX: R19.7 Diarrhea, unspecified (principal); R53.1 Weakness; Z72.89 Other problems related to lifestyle | CPT/HCPCS: A0425; A0429 ==

== ENCOUNTER 2019-06-24 12:47 | Emergency (ER) | payer MEDICARE ==
--- NOTE | 2019-06-24 13:32 | ED Physician Documentation ---
History of Present Illness - Stated complaint Stated Complaint: ETOH/ WEAKNESS - Chief complaint Chief Complaint: MHE - Additonal information Additional information: This is a 54-year-old male with a history of hypertension, high cholesterol, h eavy alcohol use with a history of pancreatitis, anxiety, depression, panic attacks, who presents with several physical complaints as well as depression with a suicide attempt last night. Patient states that he drinks around three quarters of a fifth of vodka daily, he describes many events in his life which have led to him being depressed, his when she was 41, he had financial issues, and current lives with his mother. He states that feels like his life is been slipping downhill for a while, and his drinking has seemingly compounded his problems. He last night felt depressed and suicidal and he states that he has a gun and ammo but it "didn't fire." He does not elaborate on if/how he actually tried to harm himself with the gun. Looking through his medication box there are .22 rounds of ammo in addition to his pill bottles. He also several complaints he has a bit of chest soreness and a bruise over his left chest he is not sure exactly how this happened but may be a fall while he was drunk. He also has some general achiness/generalized weakness. He denies fever or chills. No difficulty breathing. Review of Systems Constitutional: denies: Fever Nose: denies: Rhinorrhea / runny nose Cardiac: reports: Chest pain / pressure Respiratory: denies: Dyspnea GI: denies: Abdominal Pain : denies: Dysuria Skin: reports: Abrasion (s) Neurologic: reports: Generalized weakness Psychiatric: reports: Depressed PD PAST MEDICAL HISTORY - Past Medical History Cardiovascular: Hypertension, High cholesterol Respiratory: Sleep apnea, CPAP use Neuro: Other Endocrine/Autoimmune: None, Other GI: GERD, Pancreatitis : Incontinence HEENT: None Psych: Depression, Anxiety, Panic attacks, Claustrophobia Musculoskeletal: Osteoarthritis Derm: None - Past Surgical History Past Surgical History: Yes Ortho: Hip replacement, Arthroscopic surgery HEENT: Tracheostomy - Present Medications Home Medications: Ambulatory Orders Medication Instructions Recorded Confirmed Propranolol [Inderal] 60 mg PO BID 05/23/16 06/25/19 Folic Acid 1 mg PO DAILY #30 tablet 08/30/16 06/25/19 Lorazepam [Ativan] 1 mg PO TID #30 tablet 09/02/17 06/25/19 Thiamine HCl [Vitamin B-1] 100 mg PO DAILY #30 tablet 08/17/18 06/25/19 Acetaminophen 650 mg PO Q4HR PRN 06/25/19 06/25/19 Cholecalciferol (Vitamin D3) 1,000 mcg PO DAILY 06/25/19 06/25/19 [Vitamin D3] Copper [Paragard T 380-A] 2 mg ORAL DAILY 06/25/19 06/25/19 Cyanocobalamin (Vitamin B-12) 1,000 mcg SL DAILY 06/25/19 06/25/19 [Vitamin B-12] Diclofenac Sodium 75 mg PO BID 06/25/19 06/25/19 Duloxetine HCl 30 mg PO DAILY 06/25/19 06/25/19 Gabapentin 600 mg PO TID 06/25/19 06/25/19 Melatonin 3 mg PO DAILY PM PRN 06/25/19 06/25/19 Multivitamin [Theragran] 1 tab PO DAILY 06/25/19 06/25/19 Omeprazole 20 mg PO DAILY 06/25/19 06/25/19 - Allergies Allergies/Adverse Reactions: Allergies Allergy/AdvReac Type Severity Reaction Status Date / Time lisinopril Allergy Mild Anaphylaxis Verified 06/24/19 12:57 - Social History Does the pt smoke?: No Smoking Status: Never smoker Does the pt drink ETOH?: Yes Does the pt have substance abuse?: Yes - Immunizations Immunizations are current?: Yes Immunizations: Other immun not current - POLST Patient has POLST: No POLST Status: DNR (pt clearly state to me it is DNR, Pt's mother at the bedside did not say no.) PD ED PE NORMAL - Vitals Vital signs reviewed: Yes - General General: 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, No acute distress, Other (Slightly slurred speech. Cooperative.) - HEENT HEENT: Other (Atraumatic) - Neck Neck: Supple, no meningeal sign - Cardiac Cardiac: RRR, No murmur - Respiratory Respiratory: No respiratory distress, Clear bilaterally, Other (Over the left chest wall there is a superficial abrasion and area of tenderness.) - Abdomen Abdomen: Normal bowel sounds, Soft, Non tender, Non distended - Derm Derm: Warm and dry - Extremities Extremities: No deformity - Neuro Neuro: 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, visitor services assistant 2-12 intact, No motor deficit, No sensory deficit, Other (Slightly slurred speech, alcohol on breath, no focal deficits.) - Psych Psych: Normal mood, Normal affect Results - Vitals Vitals: Oxygen O2 Source Room air - EKG (time done) 13:53 Other comments: Other comments (Rate 79, rhythm sinus, there is no ST segment elevation or depression. There is some T wave flattening in 3 and aVF. QTC is 479.) - Labs Labs: Laboratory Tests 06/24/19 06/24/19 06/24/19 13:40 13:40 13:40 WBC 3.1 L RBC 3.15 L Hgb 10.7 L Hct 31.3 L MCV 99.4 H MCH 34.0 H MCHC 34.2 RDW 15.2 H Plt Count 106 L MPV 10.1 Neut # (Auto) 1.0 L Lymph # (Auto) 1.4 L Barrow # (Auto) 0.5 Eos # (Auto) 0.2 Baso # (Auto) 0.0 Absolute Nucleated RBC 0.00 Nucleated RBC % 0.0 Sodium 145 Potassium 4.1 Chloride 112 H Carbon Dioxide 23 Anion Gap 10.0 BUN 14 Creatinine 0.7 Estimated GFR (MDRD) 117 Glucose 98 Calcium 7.7 L Total Bilirubin 0.8 AST 64 H ALT 39 Alkaline Phosphatase 101 Troponin I High Sens < 2.3 L Total Protein 5.2 L Albumin 2.9 L Globulin 2.3 Albumin/Globulin Ratio 1.3 Lipase 49 TSH Urine Color Urine Clarity Urine pH Ur Specific [place] Urine Protein Urine Glucose (UA) Urine Ketones Urine Occult Blood Urine Nitrite Urine Bilirubin Urine Urobilinogen Ur Leukocyte Esterase Ur Microscopic Review Urine Culture Comments Salicylates < 6.0 Urine Opiates Screen Ur Oxycodone Screen Urine Methadone Screen Ur Propoxyphene Screen Acetaminophen < 10 L Ur Barbiturates Screen Ur Tricyclics Screen Ur Phencyclidine Scrn Ur Amphetamine Screen U Methamphetamines Scrn U Benzodiazepines Scrn Urine Cocaine Screen U Cannabinoids Screen Ethyl Alcohol 287.4 06/24/19 06/24/19 06/24/19 13:40 13:50 23:59 WBC RBC Hgb Hct MCV MCH MCHC RDW Plt Count MPV Neut # (Auto) Lymph # (Auto) B[place] # (Auto) Eos # (Auto) Baso # (Auto) Absolute Nucleated RBC Nucleated RBC % Sodium Potassium Chloride Carbon Dioxide Anion Gap BUN Creatinine Estimated GFR (MDRD) Glucose Calcium Total Bilirubin AST ALT Alkaline Phosphatase Troponin I High Sens Total Protein Albumin Globulin Albumin/Globulin Ratio Lipase TSH 1.81 Urine Color YELLOW Urine Clarity CLEAR Urine pH 6.0 Ur Specific [place] 1.020 Urine Protein NEGATIVE Urine Glucose (UA) NEGATIVE Urine Ketones NEGATIVE Urine Occult Blood NEGATIVE Urine Nitrite NEGATIVE Urine Bilirubin NEGATIVE Urine Urobilinogen 0.2 (NORMAL) Ur Leukocyte Esterase NEGATIVE Ur Microscopic Review NOT INDICATED Urine Culture Comments NOT INDICATED Salicylates Urine Opiates Screen NEGATIVE Ur Oxycodone Screen NEGATIVE Urine Methadone Screen NEGATIVE Ur Propoxyphene Screen NEGATIVE Acetaminophen Ur Barbiturates Screen NEGATIVE Ur Tricyclics Screen NEGATIVE Ur Phencyclidine Scrn NEGATIVE Ur Amphetamine Screen NEGATIVE U Methamphetamines Scrn NEGATIVE U Benzodiazepines Scrn POSITIVE H Urine Cocaine Screen NEGATIVE U Cannabinoids Screen NEGATIVE Ethyl Alcohol 39.1 - Rads (name of study) CXR Radiology: Other (Healing or healed old rib fractures, no acute fracture) PD MEDICAL DECISION MAKING - ED course Complexity details: considered differential (Suicidal ideation, alcohol intoxication, drug use, electrolyte abnormality, thyroid disturbance) ED course: On arrival patient does appear somewhat intoxicated, but he is conversational and cooperative. He has a very depressed affect, and he has a very concerning story, it sounds like he had a loaded gun may have tried to fire it but it didn't work.There are actual rounds of gun ammo in the box of his medications, and he has many risk factors - he is male, single, drinks, and has access to a gun. Labs are notable for a mild leukopenia likely due to his liver disease and stable from prior values, he has a mild anemia as well, which is also in line with past values, he has no reports of any bleeding. His AST is slightly elevated consistent with a mild alcoholic hepatitis, his troponin is negative and his EKG does not show any signs of ischemia or dysrhythmia, chest pain is likely musculoskeletal in origin, and I highly doubt ACS. His alcohol level is elevated 287 today, remainder of his tox screen shows only benzodiazepine use, and he does take Ativan which he is prescribed. His chest x-ray does not show any acute cardiopulmonary abnormality or acute fractures, he does have some old healing rib fractures. After patient was allowed to metabolize in the emergency permit he is clinically sober, he did develop mild withdrawal symptoms which were treated with ativan p.o. At one point he had a measured blood pressure which was low, but he never felt symptomatic and blood pressure improved to normal range without any significant intervention, he had no fever, No lightheadedness, no further chest pain. He appears medically cleared at this time. Tele-psych was consulted, Pt care assumed by Dr. Orellana, then Dr. Kohler. Care of the patient reassumed on 06/25/2019. Patient been evaluated by psychiatry, and [facility] was dispatched and feels that he is safe for discharge home. We discussed in depth the history of his reported attempted gun use. The details of the incident are not clear - it sounds like pt may have made up some aspects of the story that he told when he arrived intoxicated. There is a gun at the house but pt and his mother state that pt has not used or tried to use it, and he is not even sure if it is functioning at this time. The ammo is reportedly because EMS put his pill bottles in a basket that had some loose ammo in it in order to bring it in. His story has changed and I do not know exactly which details are true. I discussed my concerns with Aleksandr of [facility], he does not feel pt warrants involuntary treatment after many discussions and planning with the patient, and states patient is cleared for discharge. He arranged for a friend to remove all firearms from the home. I discussed with patient my concerns, he feels safe going home. He again states that his story he told me last night was not true, he did not have a loaded firearm and did not try to fire it. He has denied SI for 24 hours now. Pt has been clear from [facility] and wants to go home. I reviewed return precautions and that he can come back anytime for any suicidal feelings or any other concerning symptoms. Patient agreed and was discharged home in the care of his mother Departure - Departure Disposition: 01 Home, Self Care Clinical Impression: Suicidal ideation Alcohol intoxication Qualifiers: Complication of substance-induced condition: uncomplicated Qualified Code(s): F10.920 - Alcohol use, unspecified with intoxication, uncomplicated Condition: Good Instructions: ED Depression, ED Alcohol Intoxication Follow-Up: VINCENZO BANKS MD [Primary Care Provider] - Within 3 Days Comments: Please stop drinking alcohol, this is causing great harm to your mental and physical health. There are signs of damage to your liver, you have low blood counts (hemoglobin 10.7), and low platelets, which are likely related to your c hronic alcohol use, these need to be followed up with your primary care provider. If you are having any thoughts of harming yourself, or any other concerning symptoms, please return to the emergency department immediately, or call 911. You are always welcome to be reexamined in the emergency department if you are not feeling well. Discharge Date/Time: 06/25/19 19:46
[2019-06-24 13:50] LABS: BASOPHILS % (AUTO) 0.7 %; EOSINOPHILS # (AUTO) 0.2 10^3/uL (0.0-0.7); EOSINOPHILS % (AUTO) 5.6 %; HGB - HEMOGLOBIN 10.7 g/dL (14.0-18.0); LYMPHOCYTES # (AUTO) 1.4 10^3/uL (1.5-3.5); LYMPHOCYTES % (AUTO) 44.8 %; MEAN CORPUSCULAR HGB CONC 34.2 g/dL (32.0-36.0); MEAN CORPUSCULAR VOLUME 99.4 fL (80.0-94.0); MEAN PLATELET VOLUME 10.1 fL (7.4-11.4); MONOCYTES # (AUTO) 0.5 10^3/uL (0.0-1.0); NEUTROPHILS % (AUTO) 31.9 %; PLT - PLATELET COUNT 106 10^3/uL (130-450); RED BLOOD COUNT 3.15 10^6/uL (4.70-6.10); RED CELL DISTRIBUTION WIDTH 15.2 % (12.0-15.0); WHITE BLOOD COUNT 3.1 x10^3/uL (4.8-10.8)
[2019-06-24 14:02] LABS: MUDS CUTOFF CONCENTRATIONS CUTOFF CONC BELOW:
[2019-06-24 14:05] LABS: ACETAMINOPHEN < 10 ug/mL (10-30); ALBUMIN 2.9 g/dL (3.2-5.5); ALBUMIN/GLOBULIN RATIO 1.3 (1.0-2.2); ALKALINE PHOSPHATASE 101 IU/L (42-121); ALT ALANINE AMINOTRANSFERASE 39 IU/L (10-60); AST ASPARTATE AMINOTRANSFERASE 64 IU/L (10-42); BILIRUBIN,TOTAL 0.8 mg/dL (0.2-1.0); BUN - BLOOD UREA NITROGEN 14 mg/dL (6-20); CALCIUM 7.7 mg/dL (8.5-10.3); CARBON DIOXIDE - CO2 23 mmol/L (21-32); CHLORIDE 112 mmol/L (101-111); CREATININE 0.7 mg/dL (0.6-1.2); GFR - MDRD 117 (>89); GLUCOSE 98 mg/dL (70-100); LIPASE 49 U/L (22-51); SALICYLATE < 6.0 mg/dL; SODIUM 145 mmol/L (135-145); TOTAL PROTEIN 5.2 g/dL (6.7-8.2)
[2019-06-24 14:07] LABS: BILIRUBIN,URINE NEGATIVE (NEGATIVE); GLUCOSE, URINE (UA) NEGATIVE (NEGATIVE); KETONES,URINE (UA) NEGATIVE (NEGATIVE); LEUKOCYTE ESTERASE, URINE NEGATIVE (NEGATIVE); NITRITE,URINE NEGATIVE (NEGATIVE); OCCULT BLOOD,URINE NEGATIVE (NEGATIVE); PROTEIN,URINE NEGATIVE (NEGATIVE); UROBILINOGEN,URINE 0.2 (NORMAL) E.U./dL (NORMAL)
[2019-06-24 14:14] LABS: CLARITY,URINE CLEAR (CLEAR)
[2019-06-24 14:16] LABS: AMPHETAMINE SCREEN,URINE NEGATIVE (NEGATIVE); BENZODIAZEPINES SCREEN, URINE POSITIVE (NEGATIVE); COCAINE SCREEN URINE NEGATIVE (NEGATIVE); METHADONE SCREEN, URINE NEGATIVE (NEGATIVE); METHAMPHETAMINES SCREEN, URINE NEGATIVE (NEGATIVE); OPIATE SCREEN, URINE NEGATIVE (NEGATIVE); OXYCODONE SCREEN, URINE NEGATIVE (NEGATIVE); PROPOXYPHENE SCREEN, URINE NEGATIVE (NEGATIVE); TRICYCLIC ANTIDEPRESSANT,URINE NEGATIVE (NEGATIVE)
--- NOTE | 2019-06-24 14:23 | XRAY Report ---
Reason: chest pain Procedure Date: 06/24/2019 Accession Number: [id number] / [id number] Procedure: XR - Chest 1 View X-Ray CPT Code: 35601 Final Report FULL RESULT: EXAM: CHEST RADIOGRAPHY EXAM DATE: 06/24/2019 02:06 PM. CLINICAL HISTORY: Chest pain and shortness of breath x3-4 days. COMPARISON: CHEST 1 VIEW 11/25/2015 7:45 PM CHEST W/ 06/14/2019 3:54 PM. TECHNIQUE: 1 view. FINDINGS: Lungs/Pleura: No focal consolidation or evidence of edema. No pleural effusion or pneumothorax. Mediastinum: Normal cardiomediastinal contour. Other: Old fracture deformities of the right posterior fourth and fifth ribs and left posterior sixth through ninth ribs. Healing fracture of the right lateral eighth rib. IMPRESSION: Healing fracture of the right lateral eighth rib. No acute cardiopulmonary abnormality. RADIA
[2019-06-24] MEDS ORDERED: ACETAMINOPHEN 325 MG TABLET PO STA (15:02)
[2019-06-24] MEDS ORDERED: IBUPROFEN 600 MG TABLET PO STA (15:02)
[2019-06-24] MEDS ORDERED: SODIUM CHLORIDE 0.9% 1,000 ML IV ONE (17:43)
[2019-06-25] MEDS ORDERED: LORazepam 1 MG TABLET PO STA ×2 (00:28→08:02)
[2019-06-25] MEDS ORDERED: LORazepam 2 MG/ML VIAL IVP STA ×2 (01:32→10:11)
[2019-06-25] MEDS ORDERED: ONDANSETRON ODT 4 MG TABLET TL STA (08:02)
--- NOTE | 2019-06-25 10:13 | ED Physician Documentation ---
ED Addendum - Addendum Addendum: 06/25/19 10:12 This a 54-year-old man who is a heavy drinker and is awaiting evaluation by tele-psych and social work regarding complaints that he was feeling suicidal last night and went to the extent that he put a gun in his mouth and pulled the trigger but there were not any bullets in it. He also was walking around with bullets in his bag that contains his medications. He tells me now that he would never try to harm himself but the reports are concerning enough I think this r equires further evaluation. When I was at the bedside I noted that he was very tremulous he was actually picking at things on the blanket in front of him. He just got an Ativan milligram orally but I ordered 2 mg of Ativan IV. I did asked the patient to had called the ambulance and he stated that it was his mother whom he lives with. At this time I asked if I could call and speak with her about what had happened last night but he did not give me permission to do that until he had spoken with her. This also heightens my concern regarding this patient. 06/25/19 11:17 Just received a phone call from the tele-psychiatrist who said this patient has too many risk factors and no reassurances or support system as an outpatient. He is recommending involuntary committal because the patient is resistant to admission. Will call [facility] worker. 06/25/19 14:12 The patient was in the hallway talking to his mother and said that she wanted to talk to me. 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 She was not even sure if he had been drinking. She did admit that there were firearms in the home but since she had recently moved she was anyone aware of where they were at. She had been told by EMS that the patient had bullets in his medication bag but seemed completely shocked by that. I explained to her that we planned for him to be evaluated by the [facility] worker for placement for the statements that he made to the initial evaluating ED physician.
--- NOTE | 2019-06-25 11:19 | TELEPSYCH PHYS NOTE ---
Telepsych Note - CHIEF COMPLAINT/HX OF PRESENT ILLNESS Cheif Complaint and History of Present Illness: 54 year-old male with hx alcohol use disorder, anxiety, and depression presented to the ED yesterday BIB EMS after a suicide gesture in which he tried to shoot himself and placed a .22 pistol in his mouth in the setting of continued heavy alcohol abuse; BAL on arrival = 287. Upon arrival in the ED, multiple rounds of .22 ammunition were found mixed with pills in his pill bottles. At this time pt is calm and cooperative but defensive and somewhat irritable. He reports that he has had severe diarrhea and had a verbal altercation with his 80 year-old mother which led to drinking too much. He minimizes documented events, states he was looking for attention, minimizes symptoms of depression, denies SI/HI/AVH, refuses voluntary IP BH. No easton delusions or thought disorder appreciated. - SI/HI/SELF HARM SI/HI/SELF HARM (CURRENT OR HISTORY OF):: SI - VIOLENCE/LEGAL/COLLATERAL Violence - Legal - Collateral: None reported - PSYCHIATRIC HX/TREATMENT HX Psychiatric: Depression (Hx depression, anxiety, panic disorder; previously followed by a counselor at [facility] but has no mental health providers currently; denies hx intentional self-harm or psychiatric hospitalization; ), Anxiety, Panic attacks, Claustrophobia - DRUG/ALCOHOL HX ETOH Use: Liquor (BAL on arrival = 287; UDS + benzos; ) Number: 1 - MEDICAL HX Does the pt have a hx of MRSA?: No Neurological History: Other (HTN, HLD, GERD, pancreatitis, s/p hip replacement, Guillian Perry ) Eyes, Ears, Nose, Throat: None Cardiovascular: Hypertension, High cholesterol Respiratory: Sleep apnea, CPAP use Skin: None Endocrine/Autoimmune: None, Other Gastrointestinal: GERD, Pancreatitis Urinary: Incontinence Musculoskeletal: Osteoarthritis Blood Disorders: None - SURGICAL HX Orthopedic: Hip replacement, Arthroscopic surgery - HOME MEDICATIONS Home Meds (as last confirmed): Patient History Medication Instructions Recorded Confirmed Gabapentin 300 mg PO TID 05/23/16 06/25/19 Propranolol [Inderal] 60 mg PO BID 05/23/16 06/25/19 Mirtazapine 7.5 mg PO QPM 08/28/16 03/23/19 hydrOXYzine pamoate [Hydroxyzine 50 mg PO 0900,1600 06/15/17 03/23/19 Pamoate] Diclofenac Sodium 75 mg PO BID 06/25/19 06/25/19 Duloxetine HCl 30 mg PO DAILY 06/25/19 06/25/19 Omeprazole 20 mg PO DAILY 06/25/19 06/25/19 - ALLERGIES Allergies (as last confirmed): Allergies Allergy/AdvReac Type Severity Reaction Status Date / Time lisinopril Allergy Mild Anaphylaxis Verified 06/24/19 12:57 - FAMILY PSYCH/SUICIDE/SOCIAL HX-MENTAL Family - Suicide - Social Hx and Mental Status Exam: Non-contributory - PATIENT PROBLEM LIST (1) Alcohol intoxication Qualifiers: Complication of substance-induced condition: uncomplicated Qualified Code(s): F10.920 - Alcohol use, unspecified with intoxication, uncomplicated (2) Alcohol withdrawal Qualifiers: Complication of substance-induced condition: uncomplicated Qualified Code(s): F10.230 - Alcohol dependence with withdrawal, uncomplicated - TREATMENT/PHARMACOLOGICAL RECOMMENDATION Treatment - Pharmacological - Therapy Recommendations: 54 year-old male with unspecified depression and alcohol use disorder s/p suicide gesture with firearms; he remains at elevated risk of intentional self- harm and he is unwilling to stay voluntarily. 1. Initiate involuntary commitment 2. Refer to [facility] resources for safety and stabilization - TIME SPENT & PROVIDER LOCATION Telepsych consultation conducted via videoconferencing: Yes (Conducted via telepsychiatry) List names and roles of persons who participated in consult: Dr ESCUDERO Telepsych Provider Location: [place] Time Telepsych consult began: 09:30 Time Telepsych consult completed: 11:21
[2019-06-25] MEDS ORDERED: PANTOPRAZOLE 40 MG TABLET PO STA (12:20)
[2019-06-25] MEDS ORDERED: DULoxetine 30 MG CAPSULE PO SCH (13:00)
[2019-06-25] MEDS ORDERED: PROPRANOLOL 10 MG TABLET PO SCH (13:00)
[2019-06-25] MEDS ORDERED: GABAPENTIN 100 MG CAPSULE PO SCH (14:00)
[2019-06-25] MEDS ORDERED: LORazepam 1 MG TABLET PO SCH (14:00)
[2019-06-25] MEDS ORDERED: DICLOFENAC SODIUM DR 75 MG TABLET PO SCH (17:00)
[2019-06-25 19:19] VITALS: BP 122/86
== END 2019-06-25 19:46 | disposition home or self-care (01) ==
LOC: EDUNIT# → ED 12:47
DX: F32.9 Major depressive disorder, single episode, unspecified (principal); R45.851 Suicidal ideations; F10.229 Alcohol dependence with intoxication, unspecified; Y90.8 Blood alcohol level of 240 mg/100 ml or more; S20.312A Abrasion of left front wall of thorax, initial encounter; X58.XXXA Exposure to other specified factors, initial encounter; D64.9 Anemia, unspecified; D72.819 Decreased white blood cell count, unspecified; E78.00 Pure hypercholesterolemia, unspecified; I10 Essential (primary) hypertension; Z66 Do not resuscitate
CPT/HCPCS: 36415; 71045; 80053; 81003; 83690; 84443; 84484; 85025; 93005; 96361; 96374; 96376; 99284; A9270; G0427; J2060; J8499; Q0162; 80306; 80307; 80320; 80329; 81001; 87086

== ENCOUNTER 2019-07-20 02:08 | Outpatient (CLI) | payer MEDICARE | END 2019-07-20 02:09 | disposition critical access hospital (66) | LOC: EMS 02:08 | PROVIDERS: ATTEND Surgery | DX: T42.6X2A Poisoning by other antiepileptic and sedative-hypnotic drugs, intentional self-harm, initial encounter (principal) | CPT/HCPCS: A0425; A0429 ==

== ENCOUNTER 2019-07-20 02:23 | Emergency (ER) | payer MEDICAID, MEDICARE ==
--- NOTE | 2019-07-20 04:15 | ED Physician Documentation ---
History of Present Illness - Stated complaint Stated Complaint: ETOH/ CHRONIC PAIN - Chief complaint Chief Complaint: General - History obtained from History obtained from: Patient, EMS - History of Present Illness Timing: Today Pain level now: 4 - Additonal information Additional information: patient is well known to this emergency department due to frequent visits. Patient was on a medical advice line tonight, and he admitted to intentionally taking 10 extra tablets of his gabapentin. Patient tells me he took the extra tablets because of uncontrolled pain and not as a means of self harm. The person on the advice phone line called 911 and patient is brought to the emergency department. Patient says he does not want to be here and denies suicidal ideation. He has chronic pain complaints but no new or emergent complaints. Review of Systems Constitutional: reports: Reviewed and negative Cardiac: reports: Reviewed and negative Respiratory: reports: Reviewed and negative GI: reports: Reviewed and negative Musculoskeletal: reports: Back pain, Extremity pain Neurologic: reports: Focal weakness (chronic BLE) Psychiatric: denies: Depressed, Suicidal, Homicidal, Hallucinations, Delusions PD PAST MEDICAL HISTORY - Past Medical History Past Medical History: Yes Cardiovascular: Hypertension, High cholesterol Respiratory: Sleep apnea, CPAP use Neuro: Other Endocrine/Autoimmune: None, Other GI: GERD, Pancreatitis : Incontinence HEENT: None Psych: Depression, Anxiety, Panic attacks, Claustrophobia Musculoskeletal: Osteoarthritis Derm: None Other Past Medical History: ETOH addiction; chronic pain syndrome - Past Surgical History Past Surgical History: Yes Ortho: Hip replacement, Arthroscopic surgery HEENT: Tracheostomy - Present Medications Home Medications: Ambulatory Orders Medication Instructions Recorded Confirmed Propranolol [Inderal] 60 mg PO BID 05/23/16 06/25/19 Folic Acid 1 mg PO DAILY #30 tablet 08/30/16 06/25/19 Lorazepam [Ativan] 1 mg PO TID #30 tablet 09/02/17 06/25/19 Thiamine HCl [Vitamin B-1] 100 mg PO DAILY #30 tablet 08/17/18 06/25/19 Acetaminophen 650 mg PO Q4HR PRN 06/25/19 06/25/19 Cholecalciferol (Vitamin D3) 1,000 mcg PO DAILY 06/25/19 06/25/19 [Vitamin D3] Copper [Paragard T 380-A] 2 mg ORAL DAILY 06/25/19 06/25/19 Cyanocobalamin (Vitamin B-12) 1,000 mcg SL DAILY 06/25/19 06/25/19 [Vitamin B-12] Diclofenac Sodium 75 mg PO BID 06/25/19 06/25/19 Duloxetine HCl 30 mg PO DAILY 06/25/19 06/25/19 Gabapentin 600 mg PO TID 06/25/19 06/25/19 Melatonin 3 mg PO DAILY PM PRN 06/25/19 06/25/19 Multivitamin [Theragran] 1 tab PO DAILY 06/25/19 06/25/19 Omeprazole 20 mg PO DAILY 06/25/19 06/25/19 - Allergies Allergies/Adverse Reactions: Allergies Allergy/AdvReac Type Severity Reaction Status Date / Time lisinopril Allergy Mild Anaphylaxis Verified 06/24/19 12:57 - Social History Does the pt smoke?: No Smoking Status: Never smoker Does the pt drink ETOH?: Yes ETOH Use: Beer, Liquor Does the pt have substance abuse?: Yes Substance Use and Type: Prescription Pills - Immunizations Immunizations are current?: Yes Immunizations: Other immun not current - POLST Patient has POLST: No PD ED PE NORMAL - Vitals Vital signs reviewed: Yes - General General: 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, No acute distress, Well developed/nourished - HEENT HEENT: PERRL, EOMI, Moist mucous membranes - Cardiac Cardiac: RRR, No murmur - Respiratory Respiratory: No respiratory distress, Clear bilaterally - Derm Derm: Normal color, Warm and dry - Neuro Neuro: 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, auto care center manager 2-12 intact, Normal speech Results - Vitals Vitals: Oxygen O2 Source Room air PD MEDICAL DECISION MAKING - ED course Complexity details: reviewed old records, re-evaluated patient, considered differential, d/w patient ED course: observed for several hours in ED to monitor for adverse effects of gabapentin overdose. he slept for much of stay and in the morning he was AAOx3, NAD, pleasant and conversant and agreeable with discharge. I advised him to never take any medication in excess of label instructions Departure - Departure Disposition: Home, Self Care Clinical Impression: Overdose Condition: Good Instructions: ED Overdose Intentional Follow-Up: VINCENZO BANKS MD [Primary Care Provider] - Discharge Date/Time: 07/20/19 08:50
[2019-07-20 07:34] VITALS: BP 107/80
== END 2019-07-20 08:50 | disposition home or self-care (01) ==
LOC: ED 02:23
DX: T42.6X1A Poisoning by other antiepileptic and sedative-hypnotic drugs, accidental (unintentional), initial encounter (principal); G89.4 Chronic pain syndrome; I10 Essential (primary) hypertension
CPT/HCPCS: 99283

== ENCOUNTER 2019-08-12 12:42 | Outpatient (CLI) | payer MEDICARE ==
--- NOTE | 2019-08-12 13:44 | XRAY Report ---
Reason: rib pain L side Procedure Date: 08/12/2019 Accession Number: [id number] / [id number] Procedure: XRN - Chest 2 View X-Ray CPT Code: 40883 Final Report FULL RESULT: EXAM: CHEST RADIOGRAPHY EXAM DATE: 08/12/2019 01:07 PM. CLINICAL HISTORY: Rib pain, left side. COMPARISON: CHEST 1 VIEW 06/24/2019 1:50 PM. TECHNIQUE: 2 views. FINDINGS: Lungs/Pleura: No focal opacities evident. No pleural effusion. No pneumothorax. Normal volumes. Mediastinum: Heart and mediastinal contours are unremarkable. Other: Healing rib fractures of at least the sixth through 10th left-sided ribs are again demonstrated. IMPRESSION: Healing rib fractures with no superimposed acute cardiopulmonary abnormality. RADIA
== END 2019-08-12 12:43 | disposition home or self-care (01) ==
LOC: DI.N 12:42
PROVIDERS: ATTEND Physician Assistant Medical
DX: S22.42XA Multiple fractures of ribs, left side, initial encounter for closed fracture (principal); I10 Essential (primary) hypertension; R16.0 Hepatomegaly, not elsewhere classified; F10.10 Alcohol abuse, uncomplicated; R60.0 Localized edema; E03.9 Hypothyroidism, unspecified; R74.8 Abnormal levels of other serum enzymes; G62.9 Polyneuropathy, unspecified
CPT/HCPCS: 36415; 71046; 80053; 82150; 83690; 85025; 85610

== ENCOUNTER 2019-08-12 15:10 | Outpatient (CLI) | payer MEDICARE ==
[2019-08-12 19:25] LABS: BASOPHILS # (AUTO) 0.1 10^3/uL (0.0-0.1); BASOPHILS % (AUTO) 1.1 %; EOSINOPHILS # (AUTO) 0.2 10^3/uL (0.0-0.7); EOSINOPHILS % (AUTO) 2.7 %; HGB - HEMOGLOBIN 11.5 g/dL (14.0-18.0); LYMPHOCYTES # (AUTO) 1.6 10^3/uL (1.5-3.5); LYMPHOCYTES % (AUTO) 21.9 %; MEAN CORPUSCULAR HEMOGLOBIN 36.6 pg (27.0-31.0); MEAN CORPUSCULAR HGB CONC 33.7 g/dL (32.0-36.0); MEAN CORPUSCULAR VOLUME 108.6 fL (80.0-94.0); MEAN PLATELET VOLUME 10.1 fL (7.4-11.4); MONOCYTES # (AUTO) 0.9 10^3/uL (0.0-1.0); MONOCYTES % (AUTO) 12.2 %; NEUTROPHILS # (AUTO) 4.4 10^3/uL (1.5-6.6); NEUTROPHILS % (AUTO) 61.5 %; PLT - PLATELET COUNT 485 10^3/uL (130-450); RED BLOOD COUNT 3.14 10^6/uL (4.70-6.10); RED CELL DISTRIBUTION WIDTH 17.6 % (12.0-15.0); WHITE BLOOD COUNT 7.2 x10^3/uL (4.8-10.8)
[2019-08-12 19:28] LABS: INR 1.5 (0.8-1.2); PT - PROTHROMBIN TIME 16.9 secs (9.9-12.6)
[2019-08-12 19:52] LABS: ALBUMIN 2.3 g/dL (3.2-5.5); ALBUMIN/GLOBULIN RATIO 0.6 (1.0-2.2); ALKALINE PHOSPHATASE 202 IU/L (42-121); ALT ALANINE AMINOTRANSFERASE 153 IU/L (10-60); AMYLASE 36 U/L (28-100); AST ASPARTATE AMINOTRANSFERASE 400 IU/L (10-42); BILIRUBIN,TOTAL 9.5 mg/dL (0.2-1.0); BUN - BLOOD UREA NITROGEN 5 mg/dL (6-20); CALCIUM 8.2 mg/dL (8.5-10.3); CARBON DIOXIDE - CO2 23 mmol/L (21-32); CHLORIDE 105 mmol/L (101-111); CREATININE 0.5 mg/dL (0.6-1.2); GFR - MDRD 173 (>89); GLUCOSE 96 mg/dL (70-100); LIPASE 62 U/L (22-51); SODIUM 139 mmol/L (135-145); TOTAL PROTEIN 5.9 g/dL (6.7-8.2)
== END 2019-08-12 23:59 | disposition home or self-care (01) ==
LOC: LAB.N 15:10
PROVIDERS: ATTEND Physician Assistant Medical
DX: I10 Essential (primary) hypertension (principal); R16.0 Hepatomegaly, not elsewhere classified; F10.10 Alcohol abuse, uncomplicated; R60.0 Localized edema; E03.9 Hypothyroidism, unspecified; R74.8 Abnormal levels of other serum enzymes; G62.9 Polyneuropathy, unspecified
CPT/HCPCS: 36415; 80053; 82150; 83690; 83880; 85025; 85610; 85730

== ENCOUNTER 2019-08-15 19:02 | Outpatient (CLI) | payer MEDICARE ==
--- NOTE | 2019-08-15 21:54 | Ultrasound Report ---
Reason: ENLARGED LIVER,ELEVATED LIVER ENZYMES,ALCOHOL ABUS Procedure Date: 08/15/2019 Accession Number: [id number] / [id number] Procedure: US - Abdomen Limited CPT Code: Final Report FULL RESULT: EXAM: ABDOMEN ULTRASOUND LIMITED, RUQ EXAM DATE: 08/15/2019 08:25 PM. CLINICAL HISTORY: ENLARGED LIVER, ELEVATED LIVER ENZYMES, ALCOHOL ABUSE. COMPARISON: None. TECHNIQUE: Real-time scanning was performed with static images obtained. FINDINGS: Liver: Diffusely increased echogenicity and size 20.4 cm. Main portal vein flow: Hepatopetal. Suboptimal visualization of the liver secondary to body habitus. Gallbladder: Distended gallbladder containing layering sludge. Mild diffuse wall thickening. No Clemons sign. Biliary System: CBD measures 5 mm. No intrahepatic or extrahepatic ductal dilatation. The bile ducts are not well seen and obscured secondary to body habitus. Other: The right kidney appears normal without hydronephrosis and measures 10.1 cm. IMPRESSION: 1. Hepatomegaly. 2. Diffusely increased echogenicity of the liver, which may reflect hepatic steatosis. 3. Ascites. 4. Distended gallbladder containing sludge, but no stones. Mild diffuse gallbladder wall thickening. RADIA
== END 2019-08-15 19:03 | disposition home or self-care (01) ==
LOC: DI 19:02
PROVIDERS: ATTEND Physician Assistant Medical
DX: R16.0 Hepatomegaly, not elsewhere classified (principal); R18.8 Other ascites; R74.8 Abnormal levels of other serum enzymes; F10.10 Alcohol abuse, uncomplicated
CPT/HCPCS: 76705

== ENCOUNTER 2019-08-17 11:30 | Outpatient (CLI) | payer MEDICARE ==
[2019-08-17 19:00] LABS: PARTIAL THROMBOPLASTIN TIME 35.5 secs (24.9-33.3)
[2019-08-17 19:11] LABS: INR 1.5 (0.8-1.2); PT - PROTHROMBIN TIME 16.4 secs (9.9-12.6)
[2019-08-20 12:29] LABS: ANA SCREEN NEGATIVE (NEGATIVE)
== END 2019-08-17 23:59 | disposition home or self-care (01) ==
LOC: LAB.N 11:30
PROVIDERS: ATTEND Physician Assistant Medical
DX: R79.1 Abnormal coagulation profile (principal); R74.8 Abnormal levels of other serum enzymes
CPT/HCPCS: 36415; 81599; 82103; 82390; 82785; 82977; 83516; 85610; 85730; 86038; 86255; 86376

== ENCOUNTER 2019-08-19 14:17 | Outpatient (CLI) | payer MEDICARE | END 2019-08-19 14:18 | disposition critical access hospital (66) | LOC: EMS 14:17 | PROVIDERS: ATTEND Surgery | DX: R53.1 Weakness (principal); R29.6 Repeated falls | CPT/HCPCS: A0425; A0427 ==

== ENCOUNTER 2019-08-19 14:41 | Inpatient (IN) | payer MEDICARE ==
[2019-08-19] MEDS ORDERED: SODIUM CHLORIDE 0.9% 1,000 ML IV ONE ×2 (14:58)
[2019-08-19 15:13] LABS: BASOPHILS % (AUTO) 0.4 %; EOSINOPHILS # (AUTO) 0.1 10^3/uL (0.0-0.7); EOSINOPHILS % (AUTO) 1.6 %; HGB - HEMOGLOBIN 10.4 g/dL (14.0-18.0); LYMPHOCYTES % (AUTO) 13.9 %; MEAN CORPUSCULAR HEMOGLOBIN 37.8 pg (27.0-31.0); MEAN CORPUSCULAR HGB CONC 36.1 g/dL (32.0-36.0); MEAN CORPUSCULAR VOLUME 104.7 fL (80.0-94.0); MEAN PLATELET VOLUME 10.6 fL (7.4-11.4); MONOCYTES # (AUTO) 1.1 10^3/uL (0.0-1.0); MONOCYTES % (AUTO) 15.1 %; NEUTROPHILS # (AUTO) 5.1 10^3/uL (1.5-6.6); NEUTROPHILS % (AUTO) 68.3 %; PLT - PLATELET COUNT 210 10^3/uL (130-450); RED BLOOD COUNT 2.75 10^6/uL (4.70-6.10); RED CELL DISTRIBUTION WIDTH 16.8 % (12.0-15.0); WHITE BLOOD COUNT 7.4 x10^3/uL (4.8-10.8)
[2019-08-19 15:25] LABS: INR 1.8 (0.8-1.2); PT - PROTHROMBIN TIME 19.4 secs (9.9-12.6)
[2019-08-19 15:28] LABS: ALBUMIN/GLOBULIN RATIO 0.6 (1.0-2.2); BILIRUBIN,TOTAL 8.3 mg/dL (0.2-1.0); CALCIUM 7.2 mg/dL (8.5-10.3); CREATININE 0.9 mg/dL (0.6-1.2); TOTAL PROTEIN 5.1 g/dL (6.7-8.2)
[2019-08-19 15:32] LABS: PARTIAL THROMBOPLASTIN TIME 37.9 secs (24.9-33.3)
--- NOTE | 2019-08-19 15:56 | ED Physician Documentation ---
History of Present Illness - Stated complaint Stated Complaint: LOW BP - Chief complaint Chief Complaint: General - History obtained from History obtained from: Patient - History of Present Illness Timing: Today Pain level max: 3 Pain level now: 2 - Additonal information Additional information: 54-year-old male with a longstanding history of alcoholism presented to the clinic today where they noticed him to be hypotensive and jaundiced. They sent him here for evaluation. He states his last drink was approximately 3 to 4 hours ago. He is having difficulty walking and standing. Difficulty with cognition. He does not know how long the jaundice has been occurring for. Nothing makes it better or worse. No vomiting. Occasionally has abdominal pain. He states that he was supposed to see GI, but does not know where or when. Review of Systems Ten Systems: 10 systems reviewed and negative Constitutional: denies: Fever, Chills Respiratory: denies: Cough GI: reports: Nausea. denies: Vomiting, Diarrhea : denies: Dysuria Skin: denies: Rash Musculoskeletal: denies: Neck pain, Back pain Neurologic: reports: Confused. denies: Head injury, LOC PD PAST MEDICAL HISTORY - Past Medical History Cardiovascular: Hypertension, High cholesterol Respiratory: Sleep apnea, CPAP use Neuro: Headaches, Other Endocrine/Autoimmune: None, Other GI: GERD, Pancreatitis, Cirrhosis : Incontinence HEENT: None Psych: Depression, Anxiety, Panic attacks, Claustrophobia Musculoskeletal: Osteoarthritis Derm: None Other Past Medical History: remote hx guillane barre - Past Surgical History Past Surgical History: Yes Ortho: Hip replacement, Arthroscopic surgery HEENT: Tracheostomy - Present Medications Home Medications: Ambulatory Orders Medication Instructions Recorded Confirmed Propranolol [Inderal] 60 mg PO BID 05/23/16 06/25/19 Folic Acid 1 mg PO DAILY #30 tablet 08/30/16 06/25/19 Lorazepam [Ativan] 1 mg PO TID #30 tablet 09/02/17 06/25/19 Thiamine HCl [Vitamin B-1] 100 mg PO DAILY #30 tablet 08/17/18 06/25/19 Acetaminophen 650 mg PO Q4HR PRN 06/25/19 06/25/19 Cholecalciferol (Vitamin D3) 1,000 mcg PO DAILY 06/25/19 06/25/19 [Vitamin D3] Copper [Paragard T 380-A] 2 mg ORAL DAILY 06/25/19 06/25/19 Cyanocobalamin (Vitamin B-12) 1,000 mcg SL DAILY 06/25/19 06/25/19 [Vitamin B-12] Diclofenac Sodium 75 mg PO BID 06/25/19 06/25/19 Duloxetine HCl 30 mg PO DAILY 06/25/19 06/25/19 Gabapentin 600 mg PO TID 06/25/19 06/25/19 Melatonin 3 mg PO DAILY PM PRN 06/25/19 06/25/19 Multivitamin [Theragran] 1 tab PO DAILY 06/25/19 06/25/19 Omeprazole 20 mg PO DAILY 06/25/19 06/25/19 - Allergies Allergies/Adverse Reactions: Allergies Allergy/AdvReac Type Severity Reaction Status Date / Time lisinopril Allergy Mild Anaphylaxis Verified 08/19/19 14:58 - Social History Does the pt smoke?: No Smoking Status: Never smoker Does the pt drink ETOH?: Yes Does the pt have substance abuse?: Yes - Immunizations Immunizations are current?: Yes Immunizations: Other immun not current - POLST Patient has POLST: No POLST Status: DNR (pt clearly state to me it is DNR, Pt's mother at the bedside did not say no.) PD ED PE NORMAL - Vitals Vital signs reviewed: Yes - General General: No acute distress, Well developed/nourished, Other (alert, slow to respond at times. ) - HEENT HEENT: PERRL, Moist mucous membranes, Pharynx benign, Other (Jaundiced) - Neck Neck: Supple, no meningeal sign - Cardiac Cardiac: RRR, Strong equal pulses - Respiratory Respiratory: No respiratory distress, Clear bilaterally - Abdomen Abdomen: Soft, Non tender, Non distended - Derm Derm: Warm and dry, No rash - Extremities Extremities: No edema - Neuro Neuro: Other (alert, oriented x3 but slow to respond at times.) Eye Opening: Spontaneous Motor: Obeys Commands Verbal: Oriented GCS Score: 15 - Psych Psych: Normal mood, Normal affect Results - Vitals Vitals: Vital Signs - 24 hr 08/19/19 08/19/19 14:44 15:39 Temperature 36.6 C Heart Rate 78 79 Respiratory 17 20 Rate Blood Pressure 87/66 L 82/66 L O2 Saturation 98 98 Oxygen O2 Source Room air - Labs Labs: Laboratory Tests 03/08/19/19 08/19/19 15:04 15:04 15:04 WBC 7.4 RBC 2.75 L Hgb 10.4 L Hct 28.8 L MCV 104.7 H MCH 37.8 H MCHC 36.1 H RDW 16.8 H Plt Count 210 MPV 10.6 Neut # (Auto) 5.1 Lymph # (Auto) 1.0 L Dickey # (Auto) 1.1 H Eos # (Auto) 0.1 Baso # (Auto) 0.0 Absolute Nucleated RBC 0.00 Nucleated RBC % 0.0 PT 19.4 H INR 1.8 H APTT 37.9 H Sodium 137 Potassium 3.4 L Chloride 102 Carbon Dioxide 23 Anion Gap 12.0 BUN 5 L Creatinine 0.9 Estimated GFR (MDRD) 88 L Glucose 108 H Calcium 7.2 L Total Bilirubin 8.3 H AST 355 H ALT 116 H Alkaline Phosphatase 206 H Ammonia Total Protein 5.1 L Albumin 2.0 L Globulin 3.1 Albumin/Globulin Ratio 0.6 L Lipase 34 Urine Color Urine Clarity Urine pH Ur Specific [place] Urine Protein Urine Glucose (UA) Urine Ketones Urine Occult Blood Urine Nitrite Urine Bilirubin Urine Urobilinogen Ur Leukocyte Esterase Ur Microscopic Review Urine Culture Comments Ethyl Alcohol 194.4 08/19/19 08/19/19 15:46 16:20 WBC RBC Hgb Hct MCV MCH MCHC RDW Plt Count MPV Neut # (Auto) Lymph # (Auto) Dickey # (Auto) Eos # (Auto) Baso # (Auto) Absolute Nucleated RBC Nucleated RBC % PT INR APTT Sodium Potassium Chloride Carbon Dioxide Anion Gap BUN Creatinine Estimated GFR (MDRD) Glucose Calcium Total Bilirubin AST ALT Alkaline Phosphatase Ammonia 48.2 H Total Protein Albumin Globulin Albumin/Globulin Ratio Lipase Urine Color YELLOW Urine Clarity CLEAR Urine pH 6.0 Ur Specific [place] <=1.005 Urine Protein NEGATIVE Urine Glucose (UA) NEGATIVE Urine Ketones NEGATIVE Urine Occult Blood NEGATIVE Urine Nitrite NEGATIVE Urine Bilirubin MODERATE H Urine Urobilinogen 2 H Ur Leukocyte Esterase NEGATIVE Ur Microscopic Review NOT INDICATED Urine Culture Comments NOT INDICATED Ethyl Alcohol PD MEDICAL DECISION MAKING - ED course Complexity details: reviewed old records, reviewed results, re-evaluated patient, considered differential, d/w patient, d/w software sales consultant ED course: MELD score is 21 and Maddrey's discriminant function is 46.9. Patient with significant alcoholic hepatitis and acute liver failure. Given IV fluids. Discussed the case with gastroenterology who recommends admission, IV steroids and IV fluids. D/w Dr. Hewitt, [facility]. Also given a banana bag. Discussed the case with Dr. Damon, hospitalist who accepts This document was made in part using voice recognition software. While efforts are made to proofread this document, sound alike and grammatical errors may occur. Departure - Departure Disposition: 66 [facility] DC/Xfer Clinical Impression: Alcoholic liver failure Alcohol intoxication Qualifiers: Complication of substance-induced condition: with unspecified complication Qualified Code(s): F10.929 - Alcohol use, unspecified with intoxication, unspecified Alcoholic hepatitis Qualifiers: Ascites presence: without ascites Qualified Code(s): K70.10 - Alcoholic hepatitis without ascites Condition: Stable
[2019-08-19] MEDS ORDERED: FOLIC ACID INJ 1 MG, THIAMINE INJ 100 MG, MAGNESIUM SULFATE 2 GM, MULTIVITAMIN 10 ML in... IV STA ×5 (16:09)
[2019-08-19 16:28] LABS: GLUCOSE, URINE (UA) NEGATIVE (NEGATIVE); KETONES,URINE (UA) NEGATIVE (NEGATIVE); LEUKOCYTE ESTERASE, URINE NEGATIVE (NEGATIVE); NITRITE,URINE NEGATIVE (NEGATIVE); OCCULT BLOOD,URINE NEGATIVE (NEGATIVE); PROTEIN,URINE NEGATIVE (NEGATIVE); UROBILINOGEN,URINE 2 E.U./dL (NORMAL)
[2019-08-19 16:38] LABS: CLARITY,URINE CLEAR (CLEAR)
[2019-08-19 16:39] LABS: BILIRUBIN,URINE MODERATE (NEGATIVE); ICTOTEST,URINE POSITIVE
[2019-08-19] MEDS ORDERED: PANTOPRAZOLE 40 MG VIAL IVP STA (16:42)
[2019-08-19] MEDS ORDERED: THIAMINE 100 MG/1 ML 2 ML MDV ONE (17:00)
[2019-08-19] MEDS ORDERED: FOLIC ACID 5 MG/1 ML 10ML MDV ONE (17:00)
[2019-08-19] MEDS ORDERED: MAGNESIUM SULFATE 1 GM/2 ML VIAL ONE (17:00)
[2019-08-19] MEDS ORDERED: predniSONE 20 MG TABLET PO STA (17:09)
--- NOTE | 2019-08-19 17:26 | PHARMACY PROGRESS NOTE ---
- Best Possible Medication History Admit Date and Time: Patient in ED Processed by: Pharmacy Medication History completed: Yes Patient Interview: Pt unable to participate Secondary Source(s): Physician records, Pharmacy records, Insurance records As the person ultimately responsible for medication therapy, providers are able to order a medication from an existing home medication list in [facility] via the "Reconcile Routine" prior to Confirmation of that medication by clinical support nurse. Such practice is discouraged except when the physician, in their clinical judgment, deems that a medical need exists for a medication without regard to previous use.
[2019-08-19] MEDS ORDERED: ACETAMINOPHEN 325 MG TABLET PO PRN (17:36)
[2019-08-19] MEDS ORDERED: ONDANSETRON 4 MG/2 ML VIAL IVP PRN (17:36)
--- NOTE | 2019-08-19 17:48 | HISTORY & PHYSICAL EXAMINATION ---
Chief Complaint - Chief Complaint Chief Complaint: unsteady History of Present Illness - Admitted From Admitted From:: ER - History of Present Illness HPI Comment/Other: This is a 54-year-old gentleman with a past medical history significant for alcohol abuse, liver failure, substance abuse, history of Guillain Palmer syndrome diagnosed in 2010, hypertension, idiopathic neuropathy, chronic right hip arthralgia, chronic pain, depression with anxiety who presented to the emergency department with a chief complaint of having unsteady gait, jaundice and had low BP. Pt was brought in by EMS. Pt also reports that he has had several falls lately. Pt initially reported to EMS that he hadn't had any ETOH for 3-4 days. Upon asking pt again by ER he reported that he drink around 1100 on today. He states his last drink was approximately 3 to 4 hours ago. He is having difficulty walking and standing and cognition. He denies nausea or vomiting but occasionally he has abdominal pain. pt denies chest pain, fever, chill, cough. Pt has MELD score is 21 which indicate 3-month estimated mortality rate at 19.6% and Maddrey's discriminant function is 46.9. ER provider discussed the case with gastroenterology who recommends admission, IV steroids and IV fluids, discussed Dr. Hewitt, [facility] and also recommend a banana bag to pt. Route lab in ER reveals pt has total bilirubin 8.3, AST 355, Alt 116, Alk 206, Ammonia 48.2, INR 1.8. pt is afebrile, BP at 87/66. pt was admitted for above medical reason. discuss the care goal with pt, pt would like to have a full code for his code status. History - Past Medical History Cardiovascular: reports: Hypertension, High cholesterol Respiratory: reports: Sleep apnea, CPAP use Neuro: reports: Headaches, Other Endocrine/Autoimmune: reports: None, Other GI: reports: GERD, Pancreatitis, Cirrhosis : reports: Incontinence HEENT: reports: None Psych: reports: Depression, Anxiety, Panic attacks, Claustrophobia Musculoskeletal: reports: Osteoarthritis Derm: reports: None MRSA Hx?: No Other Past Medical History: remote hx guillane barre - Past Surgical History Ortho: reports: Hip replacement, Arthroscopic surgery HEENT: reports: Tracheostomy - Family & Social History Social History Notes: The patient lives at home with his mother. The patient smoked for 4 years and quit in 2005. He smoked a pack a day. The patient is an alcoholic and drinks daily. According to him he drinks 1-2 drinks of Esequiel Jiménez or vodka in a couple of glasses of wine a night. But it is apparent that he drinks much more than that. The patient is his in 2008 due to pancreatitis. The patient has had a an issue with alcohol abuse since his teen years. The patient does use marijuana on occasion. He has no history of methamphetamine, heroin, cocaine, LSD abuse. - Substance History Use: Uses substance without health or social issues: Alcohol, Psychoactive Drug - POLST Patient has POLST: No POLST Status: DNR (pt clearly state to me it is DNR, Pt's mother at the bedside did not say no.) Meds/Allgy - Home Medications Home Medications: Ambulatory Orders Medication Instructions Recorded Confirmed Folic Acid 1 mg PO DAILY #30 tablet 08/30/16 08/19/19 Thiamine HCl [Vitamin B-1] 100 mg PO DAILY #30 tablet 08/17/18 08/19/19 Cholecalciferol (Vitamin D3) 1,000 mcg PO DAILY 06/25/19 08/19/19 [Vitamin D3] Cyanocobalamin (Vitamin B-12) 1,000 mcg SL DAILY 06/25/19 08/19/19 [Vitamin B-12] Duloxetine HCl 30 mg PO DAILY 06/25/19 08/19/19 Gabapentin 600 mg PO BID 06/25/19 08/19/19 Multivitamin [Theragran] 1 tab PO DAILY 06/25/19 08/19/[address] [Voltaren] 75 mg PO BIDWM 08/19/19 08/19/19 Famotidine [Pepcid] 20 mg PO DAILY 08/19/19 08/19/19 Furosemide [Lasix] 40 mg PO DAILY 08/19/19 08/19/19 Lorazepam [Ativan] 1 mg PO Q6H PRN 08/19/19 08/19/19 Potassium Chloride [K-Dur] 20 meq PO DAILYWM 08/19/19 08/19/19 Propranolol HCl 20 mg PO TID 08/19/19 08/19/19 Zolpidem [Ambien] 5 mg PO HS PRN 08/19/19 08/19/19 - Allergies Allergies/Adverse Reactions: Allergies Allergy/AdvReac Type Severity Reaction Status Date / Time lisinopril Allergy Mild Anaphylaxis Verified 08/19/19 14:58 Review of Systems - Constitutional Constitutional: reports: Fatigue, Weakness, Poor appetite. denies: Fever, Chills - Eyes Eyes: denies: Pain, Blurred vision, Spots in vision, Field loss, Vision loss - Ears, Nose & Throat Ears, Nose & Throat: denies: Ear pain, Vertigo, Nosebleeds, Nasal congestion, Sore throat - Cardiovascular Cariovascular: denies: Irregular heart rate, Palpitations, Chest pain, Edema, Lightheadedness, Syncope, Exertional dyspnea, Decr. exercise tolerance - Respiratory Respiratory: denies: Cough, Sputum production, Wheezing, Hemoptysis, Orthopnea, SOB at rest, SOB with exertion - Gastrointestinal Gastrointestinal: reports: Abdominal pain. denies: Abdominal distention, Constipation, Diarrhea, Change in bowel habits, Rectal bleeding, Black stools, Bloody stools, Nausea, Vomiting - Genitourinary Genitourinary: denies: Dysuria, Frequency, Urgency, Hematuria, Incontinence - Musculoskeletal Musculoskeletal: denies: Muscle pain, Back pain, Muscle aches, Gout - Integumentary Integumentary: denies: Rash, Lesions, Dryness - Neurological Neurological: reports: General weakness, Abnormal gait, Incoordination. denies: Focal weakness, Headache, Dizziness, Numbness, Pre-existing deficit, Seizures, Slurred speech - Psychiatric Psychiatric: denies: Suicidal, Delusions, Hallucinations, Homicidal - Endocrine Endocrine: denies: Polyuria, Polydypsia - Hematologic/Lymphatic Hematologic/Lymphatic: denies: Anemia, Bruising, Blood clots Exam - Vital Signs Vital Signs: Vital Signs x48h Temp Pulse Resp BP Pulse Ox 08/19/19 15:39 79 20 82/66 L 98 08/19/19 14:44 36.6 C 78 17 87/66 L 98 - Physical Exam General Appearance: positive: No acute distress, Alert. negative: Lethargic Eyes Bilateral: positive: Normal inspection, PERRL, No lid inflammation ENT: positive: ENT inspection nml, Pharynx nml, No signs of dehydration. negative: Purulent nasal drainage Neck: positive: Nml inspection, Thyroid nml, No JVD, Trachea midline. negative: Thyromegaly, Lymphadenopathy (R), Lymphadenopathy (L), Stiff neck Respiratory: positive: Chest non-tender, No respiratory distress, Breath sounds nml. negative: Wheezes, Rales, Rhonchi Cardiovascular: positive: Regular rate & rhythm, No murmur, No gallop. negative: Irregularly irregular, Extrasystoles, Tachycardia, Bradycardia, JVD present, Systolic murmur, Diastolic murmur Peripheral Pulses: positive: 2+ Abdomen: positive: Non-tender, Nml bowel sounds. negative: Tenderness, Guarding, Rebound Back: positive: Nml inspection. negative: CVA tenderness (R), CVA tenderness (L) Skin: positive: Warm, Dry, Pallor, Other (jaundice). negative: Cyanosis, Diaphoresis Extremities: positive: Non-tender, Nml appearance. negative: Calf tenderness, Glenn's sign/cords Neurologic/Psychiatric: positive: Sensation nml, Mood/affect nml. negative: We akness, Sensory loss, Facial droop, Slurred/abnml speech, Depressed mood/affect Sepsis Event Note (H) - Evaluation Current Stage of Sepsis: Ruled out Conclusion/Plan - Problem List (1) Alcohol intoxication Conclusion/Plan: pt report he drunk 2 glass of alcohol today morning. serum alcohol level is 194. pt has long hx of alcohol abuse CIWA protocol with ativan PRN for withdrawal bannan bag neuro check Qualifiers: Complication of substance-induced condition: with unspecified complication Qualified Code(s): F10.929 - Alcohol use, unspecified with intoxication, unspecified (2) Hypotension Conclusion/Plan: pt has hypotension at ER, after he had two liter of perfusion, his BP is returned to normal now. it is likely caused by alcoholic dehydration. pt has 99kg weigh, give another 1 liter of NS at 100cc/h, and start on bannan bag. (3) Alcoholic liver failure Conclusion/Plan: pt has 8.3 total bili, INR 1.8, elevated liver enzyme and elevated ammonia level, Maddrey's discriminant function and MELD score is high, indicate high mortality rate advise pt quit alcohol consult with social sciences lecturer help quit alcohol followup special services agent recommendation, give steroid daily (4) Unsteady gait Conclusion/Plan: pt denies injury. it is likely caused alcohol intoxication. fall precaution. (5) Jaundice Conclusion/Plan: pt has total bilirubin 8.3 and present jaundice advise pt quit alcohol daily lab monitor - Lab Results Fish Bones: 08/19/19 15:04 08/19/19 15:04 Core Measures - Anticipated LOS I expect patient to be DC'd or transferred within 96 hours.: Yes - DVT/VTE - Prophylaxis VTE/DVT Device ordered at admit?: Yes VTE/DVT Prophylaxis med ordered at admit?: Yes
[2019-08-19] MEDS ORDERED: SODIUM CHLORIDE 0.9% 500 ML IV ONE ×2 (18:50→19:00)
[2019-08-19] MEDS ORDERED: POTASSIUM CHLORIDE 20 MEQ TABLET PO ONE (19:30)
[2019-08-19] MEDS: SODIUM CHLORIDE 0.9% 1,000 ML IV SCH (20:02)
[2019-08-19] MEDS: LORazepam 2 MG/ML VIAL IVP PRN ×2 (20:07→23:44)
[2019-08-19] MEDS ORDERED: LACTULOSE 10 GM /15 ML UDC PO SCH (21:00)
[2019-08-20] MEDS: SODIUM CHLORIDE FLUSH 0.9% 10 ML SYRINGE IVP SCH ×4 (00:50→21:32)
[2019-08-20] MEDS: LORazepam 2 MG/ML VIAL IVP PRN ×2 (03:19→08:02)
[2019-08-20 03:29] LABS: HGB - HEMOGLOBIN 9.7 g/dL (14.0-18.0); LYMPHOCYTES # (AUTO) 0.4 10^3/uL (1.5-3.5); LYMPHOCYTES % (AUTO) 9.7 %; MEAN CORPUSCULAR HEMOGLOBIN 37.9 pg (27.0-31.0); MEAN CORPUSCULAR HGB CONC 35.8 g/dL (32.0-36.0); MEAN CORPUSCULAR VOLUME 105.9 fL (80.0-94.0); MEAN PLATELET VOLUME 10.8 fL (7.4-11.4); MONOCYTES # (AUTO) 0.4 10^3/uL (0.0-1.0); MONOCYTES % (AUTO) 8.8 %; NEUTROPHILS # (AUTO) 3.5 10^3/uL (1.5-6.6); PLT - PLATELET COUNT 206 10^3/uL (130-450); RED BLOOD COUNT 2.56 10^6/uL (4.70-6.10); RED CELL DISTRIBUTION WIDTH 16.8 % (12.0-15.0); WHITE BLOOD COUNT 4.3 x10^3/uL (4.8-10.8)
[2019-08-20 03:38] LABS: ALBUMIN 1.8 g/dL (3.2-5.5); ALBUMIN/GLOBULIN RATIO 0.6 (1.0-2.2); BILIRUBIN,TOTAL 7.5 mg/dL (0.2-1.0); CALCIUM 6.7 mg/dL (8.5-10.3); CREATININE 0.7 mg/dL (0.6-1.2); TOTAL PROTEIN 4.7 g/dL (6.7-8.2)
[2019-08-20] MEDS ORDERED: ALBUMIN 25% 12.5 GM/50 ML VIAL IV STA ×2 (05:26→20:09)
--- NOTE | 2019-08-20 06:33 | XRAY Report ---
Reason: chest pain. ?rib fracture Procedure Date: 08/20/2019 Accession Number: [id number] / [id number] Procedure: XR - Chest 1 View X-Ray CPT Code: 18505 Final Report FULL RESULT: EXAM: CHEST RADIOGRAPHY EXAM DATE: 08/20/2019 05:58 AM. CLINICAL HISTORY: Chest pain. Question rib fracture. COMPARISON: CHEST 2 VIEW 08/12/2019 1:13 PM. TECHNIQUE: 1 view. FINDINGS: Lungs/Pleura: Hypoventilatory chest. Subsegmental atelectasis in the right lower lobe. Mediastinum: Heart size within normal limits. No pulmonary vascular congestion. Osseous structures: No significant focal osseous lesions. Multiple chronic rib fractures bilaterally. IMPRESSION: 1. Hypoventilatory chest. 2. Subsegmental atelectasis in the right lower lobe. 3. Multiple chronic rib fractures bilaterally. RADIA
[2019-08-20] MEDS: PANTOPRAZOLE 40 MG TABLET PO SCH (06:38)
[2019-08-20] MEDS: SODIUM CHLORIDE 0.9% 1,000 ML IV SCH (06:39)
[2019-08-20] MEDS: predniSONE 20 MG TABLET PO SCH (08:01)
--- NOTE | 2019-08-20 08:45 | PROVIDER PROGRESS NOTE ---
Subjective - Prog Note Date Prog Note Date: 08/20/19 Prog Note Time: 08:43 - Subjective Pt reports feeling: Improved Subjective: Stew wonders how long he will stay at the hospital, and complains of left rib pain, headache and left ankle discomfort. He states he has managed to stay out of the hospital for long stays in the recent past. He continues to drink daily, and lives with his elderly mother. He continues to score generously on the CIWA 9-11 points, so lorazepam has been scheduled. He denies chest pain or seizures. Ron continues to complain of inner thigh discomfort which extends into his low abdomen, starting flomax, bladder scans Q shift, evaluate for urinary retention. Current Medications - Current Medications Current Medications: Active Medications: Acetaminophen (Tylenol) 650 mg PO Q4HR PRN Diclofenac Sodium (Voltaren) 75 mg PO BIDWM ROSIE Duloxetine HCl (Cymbalta) 30 mg PO DAILY ROSIE Famotidine (Pepcid) 20 mg PO DAILY ROSIE Folic Acid 1 mg PO DAILY ROSIE Gabapentin PO 200 mg BID Lactulose (Enulose) 30 gm PO QID ROSIE Lorazepam (Ativan Inj (Vial)) 1 mg IVP Q30M PRN; Protocol Lorazepam (Ativan) 2 mg PO Q4H ROSIE Multivitamins (Theragran) 1 tab PO DAILYWM ROSIE Ondansetron HCl (Zofran Inj) 4 mg IVP Q6HR PRN Pantoprazole Sodium (Protonix) 40 mg PO QDAC ROSIE Prednisone (Deltasone) 40 mg PO DAILYWM ROSIE Midodrine PO 5mg TID with meals Spironolactone PO 25 BID Resuming oral lasix in the AM HOME meds: Cholecalciferol (Vitamin D3) [Vitamin D3] 1,000 mcg PO DAILY 06/25/19 Cyanocobalamin (Vitamin B-12) [Vitamin B-12] 1,000 mcg SL DAILY 06/25/19 Duloxetine HCl 30 mg PO DAILY 06/25/19 Gabapentin 600 mg PO BID 06/25/19 Multivitamin [Theragran] 1 tab PO DAILY 06/25/[address] [Voltaren] 75 mg PO BIDWM 08/19/19 Famotidine [Pepcid] 20 mg PO DAILY 08/19/19 Furosemide [Lasix] 40 mg PO DAILY 08/19/19 Lorazepam [Ativan] 1 mg PO Q6H PRN 08/19/19 Potassium Chloride [K-Dur] 20 meq PO DAILYWM 08/19/19 Propranolol HCl 20 mg PO TID 08/19/19 Zolpidem [Ambien] 5 mg PO HS PRN 08/19/19 Objective - Vital Signs/Intake & Output Reviewed Vital Signs: Yes Vital Signs: Vital Signs x48h Temp Pulse Resp BP Pulse Ox 08/20/19 06:30 91 12 93/63 08/20/19 05:45 95 98/69 08/20/19 05:00 89 12 80/59 L 92 08/20/19 04:01 86 11 L 85/58 L 91 L 08/20/19 03:15 36.8 C 08/20/19 03:00 84 12 95/63 94 08/20/19 02:00 80 11 L 82/56 L 94 08/20/19 01:00 80 11 L 86/64 L 94 Intake & Output: Intake & Output 08/17/19 08/18/19 08/19/19 08/20/19 23:59 23:59 23:59 23:59 Intake Total 3321.867 1503.333 Output Total 300 700 Balance 3021.867 803.333 - Objective General Appearance: positive: Alert, Moderate distress, Anxious Eyes Bilateral: positive: No lid inflammation Eyes: OU Scleral icterus ENT: positive: Pharyngeal erythema, Dry mucous membranes Neck: positive: Thyroid nml, No JVD, Trachea midline Respiratory: positive: Chest non-tender, Other (diminished, bilaterally) Cardiovascular: positive: No gallop, Tachycardia, JVD present, Systolic murmur, Decreased pulse(s) Peripheral Pulses: 1+ Radial (R), 1+ Radial (L) Abdomen: positive: Nml bowel sounds, Hepatomegaly, Other (rounded, soft) Back: positive: CVA tenderness (L) Skin: positive: No rash, Warm, Diaphoresis, Other (jaundice) Extremities: positive: Pedal edema, Joint swelling, Other (BUEs w/ edema) Neurologic/Psychiatric: positive: CN's nml (2-12), Weakness, Sensory loss, Slurred/abnml speech, Depressed mood/affect Reflexes: Bicep (R): 2+, Bicep (L): 2+ - Lab Results Fish Bones: 08/20/19 03:15 08/20/19 03:15 Other Labs: Lab Results x24hrs 08/20/19 08/20/19 08/20/19 Range/Units 03:15 03:15 03:15 WBC 4.3 L (4.8-10.8) x10^3/uL RBC 2.56 L (4.70-6.10) 10^6/uL Hgb 9.7 L (14.0-18.0) g/dL Hct 27.1 L (42.0-52.0) % MCV 105.9 H (80.0-94.0) fL MCH 37.9 H (27.0-31.0) pg MCHC 35.8 (32.0-36.0) g/dL RDW 16.8 H (12.0-15.0) % Plt Count 206 (130-450) 10^3/uL MPV 10.8 (7.4-11.4) fL Neut # (Auto) 3.5 (1.5-6.6) 10^3/uL Lymph # (Auto) 0.4 L (1.5-3.5) 10^3/uL [place] # (Auto) 0.4 (0.0-1.0) 10^3/uL Eos # (Auto) 0.0 (0.0-0.7) 10^3/uL Baso # (Auto) 0.0 (0.0-0.1) 10^3/uL Absolute Nucleated RBC 0.00 x10^3/uL Nucleated RBC % 0.0 /100WBC PT (9.9-12.6) secs INR (0.8-1.2) APTT (24.9-33.3) secs Sodium 137 (135-145) mmol/L Potassium 3.7 (3.5-5.0) mmol/L Chloride 108 (101-111) mmol/L Carbon Dioxide 20 L (21-32) mmol/L Anion Gap 9.0 (6-13) BUN 5 L (6-20) mg/dL Creatinine 0.7 (0.6-1.2) mg/dL Estimated GFR (MDRD) 117 (>89) Glucose 159 H (70-100) mg/dL Calcium 6.7 L (8.5-10.3) mg/dL Total Bilirubin 7.5 H (0.2-1.0) mg/dL AST 309 H (10-42) IU/L ALT 110 H (10-60) IU/L Alkaline Phosphatase 187 H (42-121) IU/L Ammonia 67.6 H (7-35) umol/L Total Protein 4.7 L (6.7-8.2) g/dL Albumin 1.8 L (3.2-5.5) g/dL Globulin 2.9 (2.1-4.2) g/dL Albumin/Globulin Ratio 0.6 L (1.0-2.2) Lipase (22-51) U/L Urine Color Urine Clarity (CLEAR) Urine pH (5.0-7.5) PH Ur Specific [place] (1.002-1.030) Urine Protein (NEGATIVE) mg/dL Urine Glucose (UA) (NEGATIVE) mg/dL Urine Ketones (NEGATIVE) mg/dL Urine Occult Blood (NEGATIVE) Urine Nitrite (NEGATIVE) Urine Bilirubin (NEGATIVE) Urine Urobilinogen (NORMAL) E.U./dL Ur Leukocyte Esterase (NEGATIVE) Ur Microscopic Review Urine Culture Comments Nasal Screen MRSA (PCR) (NEGATIVE) Ethyl Alcohol mg/dL 08/19/19 08/19/19 08/19/19 Range/Units 18:15 16:20 15:46 WBC (4.8-10.8) x10^3/uL RBC (4.70-6.10) 10^6/uL Hgb (14.0-18.0) g/dL Hct (42.0-52.0) % MCV (80.0-94.0) fL MCH (27.0-31.0) pg MCHC (32.0-36.0) g/dL RDW (12.0-15.0) % Plt Count (130-450) 10^3/uL MPV (7.4-11.4) fL Neut # (Auto) (1.5-6.6) 10^3/uL Lymph # (Auto) (1.5-3.5) 10^3/uL [place] # (Auto) (0.0-1.0) 10^3/uL Eos # (Auto) (0.0-0.7) 10^3/uL Baso # (Auto) (0.0-0.1) 10^3/uL Absolute Nucleated RBC x10^3/uL Nucleated RBC % /100WBC PT (9.9-12.6) secs INR (0.8-1.2) APTT (24.9-33.3) secs Sodium (135-145) mmol/L Potassium (3.5-5.0) mmol/L Chloride (101-111) mmol/L Carbon Dioxide (21-32) mmol/L Anion Gap (6-13) BUN (6-20) mg/dL Creatinine (0.6-1.2) mg/dL Estimated GFR (MDRD) (>89) Glucose (70-100) mg/dL Calcium (8.5-10.3) mg/dL Total Bilirubin (0.2-1.0) mg/dL AST (10-42) IU/L ALT (10-60) IU/L Alkaline Phosphatase (42-121) IU/L Ammonia 48.2 H (7-35) umol/L Total Protein (6.7-8.2) g/dL Albumin (3.2-5.5) g/dL Globulin (2.1-4.2) g/dL Albumin/Globulin Ratio (1.0-2.2) Lipase (22-51) U/L Urine Color YELLOW Urine Clarity CLEAR (CLEAR) Urine pH 6.0 (5.0-7.5) PH Ur Specific [place] <=1.005 (1.002-1.030) Urine Protein NEGATIVE (NEGATIVE) mg/dL Urine Glucose (UA) NEGATIVE (NEGATIVE) mg/dL Urine Ketones NEGATIVE (NEGATIVE) mg/dL Urine Occult Blood NEGATIVE (NEGATIVE) Urine Nitrite NEGATIVE (NEGATIVE) Urine Bilirubin MODERATE H (NEGATIVE) Urine Urobilinogen 2 H (NORMAL) E.U./dL Ur Leukocyte Esterase NEGATIVE (NEGATIVE) Ur Microscopic Review NOT INDICATED Urine Culture Comments NOT INDICATED Nasal Screen MRSA (PCR) NEGATIVE (NEGATIVE) Ethyl Alcohol mg/dL 08/19/19 08/19/19 08/19/19 Range/Units 15:04 15:04 15:04 WBC 7.4 (4.8-10.8) x10^3/uL RBC 2.75 L (4.70-6.10) 10^6/uL Hgb 10.4 L (14.0-18.0) g/dL Hct 28.8 L (42.0-52.0) % MCV 104.7 H (80.0-94.0) fL MCH 37.8 H (27.0-31.0) pg MCHC 36.1 H (32.0-36.0) g/dL RDW 16.8 H (12.0-15.0) % Plt Count 210 (130-450) 10^3/uL MPV 10.6 (7.4-11.4) fL Neut # (Auto) 5.1 (1.5-6.6) 10^3/uL Lymph # (Auto) 1.0 L (1.5-3.5) 10^3/uL [place] # (Auto) 1.1 H (0.0-1.0) 10^3/uL Eos # (Auto) 0.1 (0.0-0.7) 10^3/uL Baso # (Auto) 0.0 (0.0-0.1) 10^3/uL Absolute Nucleated RBC 0.00 x10^3/uL Nucleated RBC % 0.0 /100WBC PT 19.4 H (9.9-12.6) secs INR 1.8 H (0.8-1.2) APTT 37.9 H (24.9-33.3) secs Sodium 137 (135-145) mmol/L Potassium 3.4 L (3.5-5.0) mmol/L Chloride 102 (101-111) mmol/L Carbon Dioxide 23 (21-32) mmol/L Anion Gap 12.0 (6-13) BUN 5 L (6-20) mg/dL Creatinine 0.9 (0.6-1.2) mg/dL Estimated GFR (MDRD) 88 L (>89) Glucose 108 H (70-100) mg/dL Calcium 7.2 L (8.5-10.3) mg/dL Total Bilirubin 8.3 H (0.2-1.0) mg/dL AST 355 H (10-42) IU/L ALT 116 H (10-60) IU/L Alkaline Phosphatase 206 H (42-121) IU/L Ammonia (7-35) umol/L Total Protein 5.1 L (6.7-8.2) g/dL Albumin 2.0 L (3.2-5.5) g/dL Globulin 3.1 (2.1-4.2) g/dL Albumin/Globulin Ratio 0.6 L (1.0-2.2) Lipase 34 (22-51) U/L Urine Color Urine Clarity (CLEAR) Urine pH (5.0-7.5) PH Ur Specific [place] (1.002-1.030) Urine Protein (NEGATIVE) mg/dL Urine Glucose (UA) (NEGATIVE) mg/dL Urine Ketones (NEGATIVE) mg/dL Urine Occult Blood (NEGATIVE) Urine Nitrite (NEGATIVE) Urine Bilirubin (NEGATIVE) Urine Urobilinogen (NORMAL) E.U./dL Ur Leukocyte Esterase (NEGATIVE) Ur Microscopic Review Urine Culture Comments Nasal Screen MRSA (PCR) (NEGATIVE) Ethyl Alcohol 194.4 mg/dL ABX Reporting Has patient been on IV antibiotics over the past 48 hours?: No Sepsis Event Note (H) - Evaluation Current Stage of Sepsis: Ruled out Assessment/Plan - Problem List (1) Alcoholic liver failure Impression: -LFTs are grossly abnormal at: ALT 355, now 309, ALT 116, now 110, alk phos 206, now 187, ammonia 48.2, now 67.6, and total bili 8.3, now 7.5 -Maddrey's discriminant function is 46.9 -MELD score is 21 -Both indicate a high mortality rate -Recommend cessation -CIWA protocol per nursing -follow up with hostel manager outpatient, give steroids -Routine labs Fall -Injury to left later ribs, head abrasion, and ankle -No head imaging, likely due to no changes in mental status -Continues to have a headache, but may be more related to CIWA/withdrawal -Baseline ambulation is with a walker, minimally functional, lives with mother -PT/OT evaluation in the AM Hypotension -hypotension while in the ER, even after 2L IV fluids -Overnight, this continued, despite his 100 mL/hour banana bag -Albumin x1 was given, which improved B/P -Still with light blood pressures, starting midodrine to maintain at least SBPs of 100 -Continue to monitor Alcohol intoxication -Last alcoholic beverage was 3-4 hour prior to coming to the ED on 08/19/2019 -Serum alcohol level is 194 on admit -Patient has longstanding history of alcohol abuse -Continues on CIWA protocol -Scheduled oral Ativan Q4H, and PRN for withdrawal -Continue oral multi-vitamin, folic acid -Seizure precautions, neuro checks Liver cirrhosis -Longstanding excessive alcohol consumption leading to falls resulting in separate hip fractures requiring repair -Continues with daily drinking -Recommend follow up with a hostel manager BPH -Patient complains of pain in his bilateral inner thighs, which extends up into his low abdomen -The pain comes and goes -Nocturia with trips to the bathroom at home, "too many to count" -Risk factors of CAD, immobility, longstanding ETOH -Starting Flomax this evening, bladder scans per shift to check for post void residuals Ataxia -Fall causing minor injury, patient states his left ribs hurt, +headache, and his left ankle feels sore -PT/OT, fall precautions, seizure precautions Jaundice -Elevated total bilirubin of 8.3 and jaundice with scleral icterus, on exam -Recommend patient stop drinking -Social work consult
[2019-08-20] MEDS ORDERED: MULTIVITAMIN 10 ML, THIAMINE INJ 100 MG, FOLIC ACID INJ 1 MG in SODIUM CHLORIDE 0.9% 1,... IV SCH (09:00)
[2019-08-20] MEDS: FAMOTIDINE 20 MG TABLET PO SCH (09:22)
[2019-08-20] MEDS: FOLIC ACID 1 MG TABLET PO SCH (09:23)
[2019-08-20] MEDS: DULoxetine 30 MG CAPSULE PO SCH (09:23)
[2019-08-20] MEDS: LACTULOSE 10 GM /15 ML UDC PO SCH ×4 (10:00→21:14)
[2019-08-20] MEDS: LORazepam 1 MG TABLET PO SCH ×4 (10:08→23:40)
[2019-08-20] MEDS: DICLOFENAC SODIUM DR 75 MG TABLET PO SCH (17:00)
[2019-08-20] MEDS ORDERED: LIDOCAINE 2% URO-JET 5 ML SYRINGE UR PRN (17:21)
[2019-08-20] MEDS ORDERED: ONDANSETRON 4 MG/2 ML VIAL IVP PRN (17:21)
[2019-08-20] MEDS ORDERED: ZOLPIDEM 5 MG TABLET PO PRN (17:23)
[2019-08-20] MEDS: SPIRONOLACTONE 25 MG TABLET PO SCH (18:15)
[2019-08-20] MEDS: TAMSULOSIN 0.4 MG CAPSULE PO SCH (18:15)
[2019-08-20] MEDS: MIDODRINE 2.5 MG TABLET PO SCH (18:18)
[2019-08-20] MEDS: GABAPENTIN 100 MG CAPSULE PO SCH (21:14)
[2019-08-20] MEDS ORDERED: SODIUM CHLORIDE 0.9% 500 ML IV PRN (22:22)
[2019-08-20] MEDS: SODIUM CHLORIDE FLUSH 0.9% 10 ML SYRINGE IVP PRN (22:32)
--- NOTE | 2019-08-20 23:39 | ANESTHESIA PROCEDURE NOTE ---
Anesth Central Line Template - Central Line Central Line Preparation: Consent Obtained Central line location: Right IJ Central line type: Triple lumen Central line catheter tip site resides: Superior vena cava (SVC) Central line aftercare: Chlorhexidine disc placed, Secured, Placement confirmed, No pneumothorax, No complications, Bundle checklist complete, Pt tolerated well, Other (7 senegalese tripple lumen. CL requsted by the hospitalist over the phone.)
--- NOTE | 2019-08-20 23:45 | PROCEDURE REPORT ---
Hospitalist Procedure Note - Procedure Note Procedure Note: hospitalist called and requested a CVL placement for this patient. I came in to see the patient, he is on levophed for hypotension. A&ox3. Benefits and risks were explained to the patient, he agrees to proceed. All his questions were answered. He signed the consent. Right IJ identified with an US. Site prepped with chlorohexidine x3. Sterile prep and drape used. Sterility maintained through out the procedure. 7 danish tripple lumen catheter used. 20cm in and zero at skin. Patient tolerated the procedure well. X ray obtained. We will wait for radiology confirmation.
--- NOTE | 2019-08-21 00:26 | XRAY Report ---
Reason: Line placement Procedure Date: 08/20/2019 Accession Number: [id number] / [id number] Procedure: XR - Chest for Line Placement CPT Code: Final Report FULL RESULT: EXAM: CHEST RADIOGRAPHY EXAM DATE: 08/20/2019 11:42 PM CLINICAL HISTORY: Line placement. COMPARISON: CHEST 1 VIEW 08/20/2019 5:58 AM. TECHNIQUE: 1 view. FINDINGS: Lungs/Pleura: Subsegmental opacities scattered throughout both lungs. Trace right pleural effusion. No pneumothorax. Mediastinum: Within exam limitations, the cardiomediastinal contour is normal. Other: Multiple chronic bilateral rib fractures. IMPRESSION: Right IJ catheter tip located in the region of the superior to mid right atrium. RADIA
[2019-08-21] MEDS: SODIUM CHLORIDE FLUSH 0.9% 10 ML SYRINGE IVP PRN ×4 (00:38→23:26)
[2019-08-21] MEDS: PANTOPRAZOLE 40 MG TABLET PO SCH (05:44)
[2019-08-21] MEDS: LORazepam 1 MG TABLET PO SCH ×4 (05:44→23:26)
[2019-08-21 06:00] LABS: BASOPHILS % (AUTO) 0.3 %; EOSINOPHILS % (AUTO) 0.2 %; LYMPHOCYTES % (AUTO) 13.6 %; MEAN CORPUSCULAR HGB CONC 35.7 g/dL (32.0-36.0); MEAN CORPUSCULAR VOLUME 106.3 fL (80.0-94.0); MEAN PLATELET VOLUME 10.9 fL (7.4-11.4); MONOCYTES % (AUTO) 7.4 %; NEUTROPHILS % (AUTO) 77.6 %; PLT - PLATELET COUNT 180 10^3/uL (130-450); RED BLOOD COUNT 2.37 10^6/uL (4.70-6.10); RED CELL DISTRIBUTION WIDTH 17.5 % (12.0-15.0); WHITE BLOOD COUNT 11.3 x10^3/uL (4.8-10.8)
[2019-08-21 06:06] LABS: PT - PROTHROMBIN TIME 22.3 secs (9.9-12.6)
[2019-08-21 06:14] LABS: ALBUMIN/GLOBULIN RATIO 0.7 (1.0-2.2); BILIRUBIN,TOTAL 7.7 mg/dL (0.2-1.0); CALCIUM 7.2 mg/dL (8.5-10.3); CREATININE 1.3 mg/dL (0.6-1.2)
[2019-08-21 06:18] LABS: ABNORMAL LYMPHS % (MANUAL) 1 %; BAND NEUTROPHILS % (MANUAL) 4 %; LYMPHOCYTES # (MANUAL) 1.5 10^3/uL (1.5-3.5); LYMPHOCYTES % (MANUAL) 12 %; MONOCYTES # (MANUAL) 0.5 10^3/uL (0.0-1.0)
[2019-08-21 06:20] LABS: DIFFERENTIAL COMMENT MANUAL DIFFERENTIAL; PLATELET ESTIMATE, MANUAL NORMAL (130-450,000) (NORMAL); PLATELET MORPHOLOGY NORMAL APPEARANCE (NORMAL); RBC MORPHOLOGY (MULTIPLE) 1+ HYPOCHROMASIA (NORMAL)
[2019-08-21] MEDS: DICLOFENAC SODIUM DR 75 MG TABLET PO SCH ×2 (08:31→17:10)
[2019-08-21] MEDS: MIDODRINE 2.5 MG TABLET PO SCH ×3 (08:31→17:10)
[2019-08-21] MEDS: MULTIVITAMIN TABLET PO SCH (08:32)
[2019-08-21] MEDS: predniSONE 20 MG TABLET PO SCH (08:32)
[2019-08-21] MEDS: DULoxetine 30 MG CAPSULE PO SCH (08:33)
[2019-08-21] MEDS: SPIRONOLACTONE 25 MG TABLET PO SCH ×2 (08:33→17:10)
[2019-08-21] MEDS: FOLIC ACID 1 MG TABLET PO SCH (08:34)
[2019-08-21] MEDS: FAMOTIDINE 20 MG TABLET PO SCH (08:34)
[2019-08-21] MEDS: GABAPENTIN 100 MG CAPSULE PO SCH ×2 (08:34→21:46)
[2019-08-21] MEDS: TAMSULOSIN 0.4 MG CAPSULE PO SCH (08:35)
[2019-08-21] MEDS: SODIUM CHLORIDE FLUSH 0.9% 10 ML SYRINGE IVP SCH ×3 (08:36→23:26)
[2019-08-21] MEDS: THIAMINE 100 MG TABLET PO SCH (08:38)
[2019-08-21] MEDS: LACTULOSE 10 GM /15 ML UDC PO SCH ×2 (08:41→13:03)
[2019-08-21] MEDS ORDERED: FUROSEMIDE 40 MG TABLET PO SCH ×2 (09:00→12:00)
--- NOTE | 2019-08-21 15:52 | PROVIDER PROGRESS NOTE ---
Assessment/Plan - Problem List (1) Hypotension Assessment/Plan: He was moved to the ICU overnight due to severe hypotension and started on Levophed. Lactic acid not elevated to consider septic shock. He was being diuresed for his ascites and volume overload, therefore this is likely hypotension from intra vascular volume depletion. He got Albumen iv the past 2 days for low serum albumen and therefore low serum oncotic pressure. BP is 120's. Will wean Levophed slowly, with parameters ordered for keeping mean arterial pressure > 60 mmHg. May need to substitute with Midodrine. Remain ion ICU today. (2) Alcoholic hepatitis Qualifiers: Ascites presence: without ascites Qualified Code(s): K70.10 - Alcoholic hepatitis without ascites Assessment/Plan: He is on Prednisone as per the [employer] recommendations. He is getting Lasix and Spironolactone. Will stagger those due to low BP. (3) Alcoholic liver failure Assessment/Plan: He has ascites, jaundice and liver synthesis dysfunction with INR 2.0. He is getting Lasix and Spironolactone. Will stagger those due to low BP. Will change the order from Reg diet to a hepatic diet. Will decrease the prn Tylenol order from 650 mg q4h prn pain to 500 mg q6h prn pain. Thiamine daily po, no Banana Bag since he needs diuresis. Continue diuresis with Lasix and Spironolactone. Keep legs elevated when he is OOB. Alcohol cessation was discussed. he told yesterday's [employer] Provider that he was willing to go to Alcohol Rehab. (4) Alcohol abuse Assessment/Plan: A CIWA score is ordered and he is running about 5. Ativan ordered prn. He may also need Librium scheduled to transition through the alcohol withdrawal phase which could start today (3 days after his last drink). SW to assist in transition once medically stable. Will ask for a PT eval today. (5) JULIANNE (acute kidney injury) Assessment/Plan: The creat gaston to 1.3, possibly due to diuresis or poss ATN from hypotension. Follow BMP daily. (6) Anemia Assessment/Plan: Will check B12, Folate and Iron stores and replace if low. If Iron low, since INR is very elevated at 2, he may have GI bleeding and will guaic stool. - Current Meds Current Meds: Current Medications Generic Name Dose Route Start Last Admin Trade Name Freq PRN Reason Stop Dose Admin Diclofenac Sodium 75 mg 08/20/19 17:00 08/21/19 08:31 Voltaren PO 75 mg BIDWM ROSIE Administration Duloxetine HCl 30 mg 08/20/19 09:00 08/21/19 08:33 Cymbalta PO 30 mg DAILY ROSIE Administration Famotidine 20 mg 08/20/19 09:00 08/21/19 08:34 Pepcid PO 20 mg DAILY ROSIE Administration Folic Acid 1 mg 08/20/19 09:00 08/21/19 08:34 PO 1 mg DAILY ROSIE Administration Furosemide 40 mg 08/21/19 12:00 08/21/19 12:03 Lasix PO 40 mg 1200 ROSIE Administration Gabapentin 200 mg 08/20/19 22:00 08/21/19 08:34 Neurontin PO 200 mg BID ROSIE Administration Heparin Sodium (Beef Lung) 30 - 50 unit 08/21/19 05:23 08/21/19 05:36 IVP 50 unit PRN PRN Administration Central Line Protocol (<24 hr) Sodium Chloride 500 mls @ 0 mls/hr 08/20/19 22:22 08/21/19 15:00 Normal Saline 0.9% IV 20 mls/hr Q24H PRN Infusion TKO RATE TKO Norepinephrine Bitartrate 8 mg 250 mls @ 15 mls/hr 08/21/19 09:00 08/21/19 15:10 / Dextrose IV 5 mcg/min .[id number] ROSIE 9.38 mls/hr Titration Protocol 8 MCG/MIN Lactulose 30 gm 08/20/19 09:00 08/21/19 13:03 Enulose PO 30 gm QID ROSIE Administration Lorazepam 1 mg 08/19/19 17:41 08/20/19 08:02 Ativan Inj (Vial) IVP 1 mg Q30M PRN Administration CIWA >8 Protocol Lorazepam 1 mg 08/20/19 21:00 08/21/19 12:03 Ativan PO 1 mg Q6H ROSIE Administration Midodrine 5 mg 08/20/19 18:00 08/21/19 12:02 PO 5 mg TIDWM ROSIE Administration Multivitamins 1 tab 08/21/19 08:00 08/21/19 08:32 Theragran PO 1 tab DAILYWM ROSIE Administration Pantoprazole Sodium 40 mg 08/20/19 07:00 08/21/19 05:44 Protonix PO 40 mg QDAC ROSIE Administration Prednisone 40 mg 08/20/19 08:00 08/21/19 08:32 Deltasone PO 40 mg DAILYWM ROSIE Administration Sodium Chloride 10 ml 08/19/19 17:36 08/21/19 05:36 Normal Saline Flush 0.9% IVP 10 ml PRN PRN Administration NEEDED PER PROVIDER ORDERS Sodium Chloride 10 ml 08/20/19 01:00 08/21/19 08:36 Normal Saline Flush 0.9% IVP 10 ml 0100,0900,1700 ROSIE Administration Sodium Chloride 20 ml 08/21/19 05:23 08/21/19 05:36 Normal Saline Flush 0.9% IVP 20 ml PRN PRN Administration After Blood Draw Spironolactone 25 mg 08/20/19 17:25 08/21/19 08:33 Aldactone PO 25 mg BIDWM ROSIE Administration Tamsulosin HCl 0.4 mg 08/20/19 17:13 08/21/19 08:35 Flomax PO 0.4 mg DAILY ROSIE Administration Thiamine HCl 100 mg 08/21/19 09:00 08/21/19 08:38 Vitamin B-1 PO 100 mg DAILY ROSIE Administration - Lab Result Fish Bone Diagrams: 08/21/19 05:30 08/21/19 05:30 - Additional Planning My Orders: My Active Orders 08/21/19 Evaluate and Treat PT [PT] Routine 08/21/19 08:13 Acetaminophen [Tylenol] 500 mg PO Q6HR PRN 08/21/19 09:00 Dextrose 5% [D5w] 242 ml NORepinephrine [Levophed] 8 mg IV 8 mcg/min Thiamine [Vitamin B-1] 100 mg PO DAILY 08/21/19 12:00 Furosemide [Lasix] 40 mg PO 1200 08/21/19 Lunch DIET [Hepatic/Renal Diet] [DIET] Subjective - Subjective Patient Reports: Feeling Better Nursing Reports: No Complaints Objective Vital Signs: Vital Signs - 24 hr 08/20/19 08/20/19 08/20/19 16:00 17:08 18:06 Temperature 37.7 C H Heart Rate [ 103 H 100 101 H Monitoring electrodes] Respiratory 15 24 23 Rate Blood Pressure 96/77 108/82 H 99/73 [Right Brachial artery] O2 Saturation 08/20/19 08/20/19 08/20/19 19:00 19:08 20:00 Temperature 37.6 C H Heart Rate [ 96 95 Monitoring electrodes] Respiratory 16 17 Rate Blood Pressure 74/55 L 72/49 L [Right Brachial artery] O2 Saturation 08/20/19 08/20/19 08/20/19 20:34 20:52 21:00 Temperature Heart Rate [ 94 94 Monitoring electrodes] Respiratory 15 Rate Blood Pressure 86/52 L 79/56 L 82/54 L [Right Brachial artery] O2 Saturation 08/20/19 08/20/19 08/20/19 22:02 22:15 22:37 Temperature Heart Rate [ 90 90 89 Monitoring electrodes] Respiratory Rate Blood Pressure 76/50 L 70/43 L 80/52 L [Right Brachial artery] O2 Saturation 08/20/19 08/20/19 08/20/19 22:40 22:45 22:50 Temperature Heart Rate [ 85 89 84 Monitoring electrodes] Respiratory Rate Blood Pressure 80/53 L 79/52 L 80/58 L [Right Brachial artery] O2 Saturation 08/20/19 08/20/19 08/20/19 22:55 23:00 23:05 Temperature Heart Rate [ 87 86 84 Monitoring electrodes] Respiratory Rate Blood Pressure 81/64 L 88/55 L 88/61 L [Right Brachial artery] O2 Saturation 08/20/19 08/20/19 08/20/19 23:10 23:15 23:20 Temperature Heart Rate [ 85 87 85 Monitoring electrodes] Respiratory Rate Blood Pressure 91/61 85/61 L 90/58 L [Right Brachial artery] O2 Saturation 08/20/19 08/20/19 08/20/19 23:25 23:30 23:35 Temperature Heart Rate [ 83 88 88 Monitoring electrodes] Respiratory Rate Blood Pressure 89/60 L 97/65 92/66 [Right Brachial artery] O2 Saturation 08/20/19 08/20/19 08/20/19 23:40 23:44 23:45 Temperature 37.3 C Heart Rate [ 87 87 Monitoring electrodes] Respiratory Rate Blood Pressure 92/69 89/65 L [Right Brachial artery] O2 Saturation 08/20/19 08/20/19 08/21/19 23:50 23:55 00:00 Temperature Heart Rate [ 86 86 87 Monitoring electrodes] Respiratory 13 Rate Blood Pressure 89/66 L 85/65 L 89/60 L [Right Brachial artery] O2 Saturation 94 08/21/19 08/21/19 08/21/19 00:05 00:10 00:15 Temperature Heart Rate [ 87 88 89 Monitoring electrodes] Respiratory 13 Rate Blood Pressure 86/62 L 84/62 L 84/67 L [Right Brachial artery] O2 Saturation 93 08/21/19 08/21/19 08/21/19 00:20 00:25 00:30 Temperature Heart Rate [ 89 91 88 Monitoring electrodes] Respiratory Rate Blood Pressure 87/67 L 88/67 L 83/65 L [Right Brachial artery] O2 Saturation 08/21/19 08/21/19 08/21/19 00:35 00:40 00:45 Temperature Heart Rate [ 87 88 89 Monitoring electrodes] Respiratory Rate Blood Pressure 84/59 L 92/69 88/66 L [Right Brachial artery] O2 Saturation 08/21/19 08/21/19 08/21/19 00:50 00:55 01:00 Temperature Heart Rate [ 88 86 88 Monitoring electrodes] Respiratory 14 Rate Blood Pressure 85/67 L 85/63 L 92/63 [Right Brachial artery] O2 Saturation 93 08/21/19 08/21/19 08/21/19 01:05 01:15 01:30 Temperature Heart Rate [ 87 88 89 Monitoring electrodes] Respiratory Rate Blood Pressure 88/67 L 97/60 94/64 [Right Brachial artery] O2 Saturation 08/21/19 08/21/19 08/21/19 01:45 02:00 02:15 Temperature Heart Rate [ 88 92 85 Monitoring electrodes] Respiratory 14 Rate Blood Pressure 96/71 98/55 L 92/67 [Right Brachial artery] O2 Saturation 08/21/19 08/21/19 08/21/19 03:00 04:00 05:00 Temperature Heart Rate [ 86 82 83 Monitoring electrodes] Respiratory 14 13 13 Rate Blood Pressure 96/71 98/75 95/72 [Right Brachial artery] O2 Saturation 08/21/19 08/21/19 08/21/19 05:39 05:51 06:00 Temperature 37.4 C Heart Rate [ 87 83 Monitoring electrodes] Respiratory 12 Rate Blood Pressure 82/53 L 100/70 [Right Brachial artery] O2 Saturation 08/21/19 08/21/19 08/21/19 07:00 08:00 09:00 Temperature 36.9 C Heart Rate [ 84 83 88 Monitoring electrodes] Respiratory 15 14 14 Rate Blood Pressure 104/69 105/78 99/70 [Right Brachial artery] O2 Saturation 96 95 08/21/19 08/21/19 08/21/19 10:00 11:00 12:00 Temperature 37.2 C Heart Rate [ 89 90 90 Monitoring electrodes] Respiratory 14 20 17 Rate Blood Pressure 96/74 104/81 H 101/75 [Right Brachial artery] O2 Saturation 95 95 95 08/21/19 08/21/19 08/21/19 13:00 14:00 15:00 Temperature Heart Rate [ 90 85 81 Monitoring electrodes] Respiratory 14 14 14 Rate Blood Pressure 106/97 H 91/70 88/65 L [Right Brachial artery] O2 Saturation 96 95 96 Oxygen O2 Source Room air I&O (Last 24 Hrs): Intake and Output Totals x24h 08/19/19 08/20/19 08/21/19 23:59 23:59 23:59 Intake Total 3321.867 3062.333 1430.500 Output Total 300 875 0 Balance 3021.867 2187.333 1430.500 General: Alert, Other (Slow speech) HEENT: Mucous membr. moist/pink, Other (Poorly kempt) Neck: Supple, No JVD Neuro: Alert, Oriented Times 3 Cardiovascular: Regular rate Respiratory: No respiratory distress Abdomen: Soft, Other (Distended) Extremities: Other (4+ edema to hips) - Results Results: Laboratory Results WBC 11.3 x10^3/uL (4.8-10.8) H 08/21/19 05:30 RBC 2.37 10^6/uL (4.70-6.10) L 08/21/19 05:30 Hgb 9.0 g/dL (14.0-18.0) L 08/21/19 05:30 Hct 25.2 % (42.0-52.0) L 08/21/19 05:30 MCV 106.3 fL (80.0-94.0) H 08/21/19 05:30 MCH 38.0 pg (27.0-31.0) H 08/21/19 05:30 MCHC 35.7 g/dL (32.0-36.0) 08/21/19 05:30 RDW 17.5 % (12.0-15.0) H 08/21/19 05:30 Plt Count 180 10^3/uL (130-450) 08/21/19 05:30 MPV 10.9 fL (7.4-11.4) 08/21/19 05:30 Neut # (Auto) Not Reportable 08/21/19 05:30 Lymph # (Auto) Not Reportable 08/21/19 05:30 Pratt # (Auto) Not Reportable 08/21/19 05:30 Eos # (Auto) Not Reportable 08/21/19 05:30 Baso # (Auto) Not Reportable 08/21/19 05:30 Absolute Nucleated RBC Not Reportable 08/21/19 05:30 Total Counted 100 08/21/19 05:30 Band Neuts % (Manual) 4 % (0-10) 08/21/19 05:30 Abnorm Lymph % (Manual) 1 % 08/21/19 05:30 Nucleated RBC % Not Reportable 08/21/19 05:30 Neutrophils # (Manual) 9.4 10^3/uL (1.5-6.6) H 08/21/19 05:30 Lymphocytes # (Manual) 1.5 10^3/uL (1.5-3.5) 08/21/19 05:30 Monocytes # (Manual) 0.5 10^3/uL (0.0-1.0) 08/21/19 05:30 Eosinophils # (Manual) 0.0 10^3/uL (0-0.7) 08/21/19 05:30 Basophils # (Manual) 0.0 10^3/uL (0-0.1) 08/21/19 05:30 Differential Comment MANUAL DIFFERENTIAL 08/21/19 05:30 WBC Morphology NORMAL APPEARANCE (NORMAL) 08/21/19 05:30 Platelet Estimate NORMAL (130-450,000) (NORMAL) 08/21/19 05:30 Platelet Morphology NORMAL APPEARANCE (NORMAL) 08/21/19 05:30 RBC Morph Micro Appear 1+ HYPOCHROMASIA (NORMAL) 08/21/19 05:30 PT 22.3 secs (9.9-12.6) H 08/21/19 05:30 INR 2.0 (0.8-1.2) H 08/21/19 05:30 APTT 37.9 secs (24.9-33.3) H 08/19/19 15:04 Sodium 137 mmol/L (135-145) 08/21/19 05:30 Potassium 3.7 mmol/L (3.5-5.0) 08/21/19 05:30 Chloride 104 mmol/L (101-111) 08/21/19 05:30 Carbon Dioxide 23 mmol/L (21-32) 08/21/19 05:30 Anion Gap 10.0 (6-13) 08/21/19 05:30 BUN 7 mg/dL (6-20) 08/21/19 05:30 Creatinine 1.3 mg/dL (0.6-1.2) H 08/21/19 05:30 Estimated GFR (MDRD) 57 (>89) L 08/21/19 05:30 Glucose 131 mg/dL (70-100) H 08/21/19 05:30 Calcium 7.2 mg/dL (8.5-10.3) L 08/21/19 05:30 Total Bilirubin 7.7 mg/dL (0.2-1.0) H 08/21/19 05:30 AST 204 IU/L (10-42) H 08/21/19 05:30 ALT 85 IU/L (10-60) H 08/21/19 05:30 Alkaline Phosphatase 161 IU/L (42-121) H 08/21/19 05:30 Ammonia 69.8 umol/L (7-35) H 08/21/19 05:30 Total Creatine Kinase 28 IU/L (22-269) 08/21/19 05:30 B-Natriuretic Peptide 754 pg/mL (5-100) H 08/21/19 05:30 Total Protein 5.0 g/dL (6.7-8.2) L 08/21/19 05:30 Albumin 2.0 g/dL (3.2-5.5) L 08/21/19 05:30 Globulin 3.0 g/dL (2.1-4.2) 08/21/19 05:30 Albumin/Globulin Ratio 0.7 (1.0-2.2) L 08/21/19 05:30 Lipase 34 U/L (22-51) 08/19/19 15:04 Urine Color YELLOW 08/19/19 16:20 Urine Clarity CLEAR (CLEAR) 08/19/19 16:20 Urine pH 6.0 PH (5.0-7.5) 08/19/19 16:20 Ur Specific [place] <=1.005 (1.002-1.030) 08/19/19 16:20 Urine Protein NEGATIVE mg/dL (NEGATIVE) 08/19/19 16:20 Urine Glucose (UA) NEGATIVE mg/dL (NEGATIVE) 08/19/19 16:20 Urine Ketones NEGATIVE mg/dL (NEGATIVE) 08/19/19 16:20 Urine Occult Blood NEGATIVE (NEGATIVE) 08/19/19 16:20 Urine Nitrite NEGATIVE (NEGATIVE) 08/19/19 16:20 Urine Bilirubin MODERATE (NEGATIVE) H 08/19/19 16:20 Urine Urobilinogen 2 E.U./dL (NORMAL) H 08/19/19 16:20 Ur Leukocyte Esterase NEGATIVE (NEGATIVE) 08/19/19 16:20 Ur Microscopic Review NOT INDICATED 08/19/19 16:20 Urine Culture Comments NOT INDICATED 08/19/19 16:20 Nasal Screen MRSA (PCR) NEGATIVE (NEGATIVE) 08/19/19 18:15 Ethyl Alcohol 194.4 mg/dL 08/19/19 15:04 - Procedures Procedures: Procedures INSPECTION OF LOWER INTESTINAL TRACT, ENDO (01/25/18) Sepsis Event Note (H) - Evaluation Current Stage of Sepsis: Ruled out
[2019-08-21] MEDS: LACTULOSE 10 GM/15 ML BOTTLE PO SCH ×2 (17:20→21:46)
[2019-08-21] MEDS: ACETAMINOPHEN 325 MG TABLET PO PRN (23:26)
[2019-08-22] MEDS: SODIUM CHLORIDE FLUSH 0.9% 10 ML SYRINGE IVP PRN ×2 (05:23)
[2019-08-22] MEDS: LORazepam 1 MG TABLET PO SCH ×3 (05:31→17:27)
[2019-08-22] MEDS: PANTOPRAZOLE 40 MG TABLET PO SCH (05:31)
[2019-08-22 05:46] LABS: BASOPHILS % (AUTO) 0.1 %; EOSINOPHILS # (AUTO) 0.2 10^3/uL (0.0-0.7); EOSINOPHILS % (AUTO) 1.8 %; HGB - HEMOGLOBIN 8.6 g/dL (14.0-18.0); LYMPHOCYTES # (AUTO) 1.4 10^3/uL (1.5-3.5); LYMPHOCYTES % (AUTO) 16.1 %; MEAN CORPUSCULAR HEMOGLOBIN 38.4 pg (27.0-31.0); MEAN CORPUSCULAR HGB CONC 35.5 g/dL (32.0-36.0); MEAN PLATELET VOLUME 11.1 fL (7.4-11.4); MONOCYTES # (AUTO) 0.8 10^3/uL (0.0-1.0); MONOCYTES % (AUTO) 9.8 %; NEUTROPHILS # (AUTO) 6.1 10^3/uL (1.5-6.6); NEUTROPHILS % (AUTO) 71.1 %; PLT - PLATELET COUNT 153 10^3/uL (130-450); RED BLOOD COUNT 2.24 10^6/uL (4.70-6.10); RED CELL DISTRIBUTION WIDTH 16.9 % (12.0-15.0); WHITE BLOOD COUNT 8.5 x10^3/uL (4.8-10.8)
[2019-08-22 06:25] LABS: FOLATE 13.91 ng/mL (5.90 - >24.8)
[2019-08-22 06:46] LABS: ALBUMIN 1.7 g/dL (3.2-5.5); ALBUMIN/GLOBULIN RATIO 0.6 (1.0-2.2); ALKALINE PHOSPHATASE 143 IU/L (42-121); ALT ALANINE AMINOTRANSFERASE 64 IU/L (10-60); AST ASPARTATE AMINOTRANSFERASE 114 IU/L (10-42); BILIRUBIN,TOTAL 6.7 mg/dL (0.2-1.0); BUN - BLOOD UREA NITROGEN 9 mg/dL (6-20); CALCIUM 7.3 mg/dL (8.5-10.3); CARBON DIOXIDE - CO2 24 mmol/L (21-32); CHLORIDE 105 mmol/L (101-111); CREATININE 1.2 mg/dL (0.6-1.2); GLUCOSE 85 mg/dL (70-100); IRON 45 ug/dL (45-182); SODIUM 136 mmol/L (135-145); TOTAL PROTEIN 4.5 g/dL (6.7-8.2); TRANSFERRIN < 70 mg/dL (180-329)
[2019-08-22] MEDS: predniSONE 20 MG TABLET PO SCH (08:43)
[2019-08-22] MEDS: MIDODRINE 2.5 MG TABLET PO SCH ×3 (08:44→17:29)
[2019-08-22] MEDS: MULTIVITAMIN TABLET PO SCH (08:44)
[2019-08-22] MEDS: DICLOFENAC SODIUM DR 75 MG TABLET PO SCH ×2 (08:45→17:31)
[2019-08-22] MEDS: FAMOTIDINE 20 MG TABLET PO SCH (08:56)
[2019-08-22] MEDS: FOLIC ACID 1 MG TABLET PO SCH (08:56)
[2019-08-22] MEDS: THIAMINE 100 MG TABLET PO SCH (08:56)
[2019-08-22] MEDS: DULoxetine 30 MG CAPSULE PO SCH (08:56)
[2019-08-22] MEDS: TAMSULOSIN 0.4 MG CAPSULE PO SCH (08:56)
[2019-08-22] MEDS: LACTULOSE 10 GM/15 ML BOTTLE PO SCH ×4 (08:59→20:26)
[2019-08-22] MEDS: GABAPENTIN 100 MG CAPSULE PO SCH ×2 (09:02→20:26)
[2019-08-22] MEDS: FUROSEMIDE 20 MG/2 ML VIAL IVP SCH ×2 (10:30→14:07)
[2019-08-22] MEDS: SODIUM CHLORIDE FLUSH 0.9% 10 ML SYRINGE IVP SCH ×2 (10:30→17:30)
--- NOTE | 2019-08-22 14:15 | PROVIDER PROGRESS NOTE ---
Assessment/Plan - Problem List (1) Hypotension Assessment/Plan: He was moved into the ICU 2 nights ago because of significant hypotension and started on Levophed drip. It was felt to be from intravascular volume depletion from needing Lasix and spironolactone, not septic shock and not cardiogenic shock. The Levophed drip was titrated to off at 0400 today. Midodrine was to be started. Following that, in the subsequent 2 hours, his blood pressure dropped again to 89 systolic. Looking at his I's and O's, the patient drank 2 L of liquids yesterday, and will need to be started on IV Lasix today. He will need to stay in the ICU for probable Levophed use again, while he is getting diuretics. (2) Alcoholic hepatitis Qualifiers: Ascites presence: without ascites Qualified Code(s): K70.10 - Alcoholic hepatitis without ascites Assessment/Plan: In the ER, mold technician was consulted advised to follow the up-to-date protocol using steroids. The patient is getting prednisone, thiamine, diuretics for his ascites and leg edema. He is getting lactulose and ammonia is being followed. (3) Alcoholic liver failure Assessment/Plan: Patient liberally drank 2 L of water yesterday, according to his I's and O's, and is not in negative fluid balance. We will start IV Lasix 3 times daily. Remain in the ICU in case he needs a Levophed drip while getting aggressive diuretics. I have adjusted his diet orders to indicate 2000 cc/day total fluids including 1000 cc/day from his diet, and of that only 600 cc/day can be free water. His ammonia is slightly better. He is getting lactulose. He is requesting Imodium. Follow CMP, follow ammonia daily. (4) Alcohol abuse Assessment/Plan: The patient is icteric, ataxic but does not have a "liver flap". He is getting scheduled Ativan which is making him sleepy and with slurred speech. We will decrease the Ativan from every 6 hours to every 8 hours. He told his [employer] Provider, before transfering into the ICU, that he would agree to alcohol rehab, when he is clinically stable. He can participate with PT in the ICU, if BP stable. (5) JULIANNE (acute kidney injury) Assessment/Plan: Creat gaston to 1.3 and is 1.2 today. He may have hepato-renal syndrome. Watch creat daily as diuresing. (6) Anemia Qualifiers: Anemia type: iron deficiency Assessment/Plan: His B12 and folate levels were adequate. His iron stores are low. We will start daily oral iron replacement. Follow CBC daily. - Current Meds Current Meds: Current Medications Generic Name Dose Route Start Last Admin Trade Name Freq PRN Reason Stop Dose Admin Acetaminophen 500 mg 08/21/19 08:13 08/21/19 23:26 Tylenol PO 325 mg Q6HR PRN Administration Pain 1 to 4 Diclofenac Sodium 75 mg 08/20/19 17:00 08/22/19 08:45 Voltaren PO 75 mg BIDWM ROSIE Administration Duloxetine HCl 30 mg 08/20/19 09:00 08/22/19 08:56 Cymbalta PO 30 mg DAILY ROSIE Administration Famotidine 20 mg 08/20/19 09:00 08/22/19 08:56 Pepcid PO 20 mg DAILY ROSIE Administration Folic Acid 1 mg 08/20/19 09:00 08/22/19 08:56 PO 1 mg DAILY ROSIE Administration Furosemide 20 mg 08/22/19 09:00 08/22/19 14:07 Lasix Inj 20mg Vial IVP 20 mg BIDDIURETIC ROSIE Administration Gabapentin 200 mg 08/20/19 22:00 08/22/19 09:02 Neurontin PO 200 mg BID ROSIE Administration Heparin Sodium (Beef Lung) 30 - 50 unit 08/21/19 05:23 08/22/19 05:22 IVP 100 unit PRN PRN Administration Central Line Protocol (<24 hr) Sodium Chloride 500 mls @ 0 mls/hr 08/20/19 22:22 08/22/19 05:31 Normal Saline 0.9% IV 0 mls/hr Q24H PRN Infusion TKO RATE TKO Norepinephrine Bitartrate 8 mg 250 mls @ 15 mls/hr 08/21/19 09:00 08/22/19 05:21 / Dextrose IV 0 mcg/min .[id number] ROSIE 0 mls/hr Titration Protocol 8 MCG/MIN Lactulose 30 gm 08/21/19 17:00 08/22/19 14:04 Lactulose PO 30 gm QID ROSIE Administration Lorazepam 1 mg 08/19/19 17:41 08/20/19 08:02 Ativan Inj (Vial) IVP 1 mg Q30M PRN Administration CIWA >8 Protocol Lorazepam 1 mg 08/22/19 09:00 08/22/19 10:29 Ativan PO 1 mg Q8H ROSIE Administration Midodrine 5 mg 08/20/19 18:00 08/22/19 12:39 PO 5 mg TIDWM ROSIE Administration Multivitamins 1 tab 08/21/19 08:00 08/22/19 08:44 Theragran PO 1 tab DAILYWM ROSIE Administration Pantoprazole Sodium 40 mg 08/20/19 07:00 08/22/19 05:31 Protonix PO 40 mg QDAC ROSIE Administration Prednisone 40 mg 08/20/19 08:00 08/22/19 08:43 Deltasone PO 40 mg DAILYWM ROSIE Administration Sodium Chloride 10 ml 08/19/19 17:36 08/22/19 05:23 Normal Saline Flush 0.9% IVP 10 ml PRN PRN Administration NEEDED PER PROVIDER ORDERS Sodium Chloride 10 ml 08/20/19 01:00 08/22/19 10:30 Normal Saline Flush 0.9% IVP 10 ml 0100,0900,1700 ROSIE Administration Sodium Chloride 20 ml 08/21/19 05:23 08/22/19 05:23 Normal Saline Flush 0.9% IVP 20 ml PRN PRN Administration After Blood Draw Spironolactone 25 mg 08/20/19 17:25 08/21/19 17:10 Aldactone PO 25 mg BIDWM ROSIE Administration Tamsulosin HCl 0.4 mg 08/20/19 17:13 08/22/19 08:56 Flomax PO 0.4 mg DAILY ROSIE Administration Thiamine HCl 100 mg 08/21/19 09:00 08/22/19 08:56 Vitamin B-1 PO 100 mg DAILY ROSIE Administration - Lab Result Fish Bone Diagrams: 08/22/19 05:30 08/22/19 05:30 - Additional Planning My Orders: My Active Orders 08/21/19 16:03 Miscellaenous Nursing Order [RC] QSHIFT 08/22/19 08:33 Miscellaenous Nursing Order [RC] QSHIFT 08/22/19 09:00 FUROSEMIDE INJ 20mg VIAL [LASIX INJ 20mg VIAL] 20 mg IVP BIDDIURETIC LORazepam [Ativan] 1 mg PO Q8H Subjective - Subjective Patient Reports: Resting Comfortably Nursing Reports: Other (Stool is pasty and he wants Imodium.) Objective Vital Signs: Vital Signs - 24 hr 08/21/19 08/21/19 08/21/19 15:00 16:00 17:00 Temperature 36.6 C Heart Rate [ 81 85 83 Monitoring electrodes] Respiratory 14 13 16 Rate Blood Pressure 88/65 L 89/68 L 95/72 [Right Brachial artery] O2 Saturation 96 96 08/21/19 08/21/19 08/21/19 18:00 19:00 19:25 Temperature 37 C Heart Rate [ 84 83 Monitoring electrodes] Respiratory 18 12 Rate Blood Pressure 94/77 94/79 [Right Brachial artery] O2 Saturation 95 95 08/21/19 08/21/19 08/21/19 20:00 21:00 22:00 Temperature Heart Rate [ 80 85 73 Monitoring electrodes] Respiratory 14 14 12 Rate Blood Pressure 103/84 H 100/79 104/81 H [Right Brachial artery] O2 Saturation 96 08/21/19 08/21/19 08/21/19 23:00 23:40 23:45 Temperature Heart Rate [ 77 75 74 Monitoring electrodes] Respiratory 11 L Rate Blood Pressure 105/79 106/76 102/78 [Right Brachial artery] O2 Saturation 97 08/21/19 08/21/19 08/22/19 23:50 23:55 00:00 Temperature Heart Rate [ 78 76 78 Monitoring electrodes] Respiratory Rate Blood Pressure 103/77 99/76 106/74 [Right Brachial artery] O2 Saturation 08/22/19 08/22/19 08/22/19 00:05 00:40 00:45 Temperature Heart Rate [ 78 78 81 Monitoring electrodes] Respiratory Rate Blood Pressure 100/69 96/78 95/69 [Right Brachial artery] O2 Saturation 08/22/19 08/22/19 08/22/19 00:50 01:00 01:15 Temperature Heart Rate [ 78 77 78 Monitoring electrodes] Respiratory Rate Blood Pressure 100/66 98/65 95/67 [Right Brachial artery] O2 Saturation 08/22/19 08/22/19 08/22/19 01:30 01:45 01:50 Temperature Heart Rate [ 79 80 81 Monitoring electrodes] Respiratory Rate Blood Pressure 94/68 83/69 L 99/76 [Right Brachial artery] O2 Saturation 08/22/19 08/22/19 08/22/19 01:55 02:00 03:00 Temperature Heart Rate [ 80 77 79 Monitoring electrodes] Respiratory 12 11 L Rate Blood Pressure 103/73 97/71 96/70 [Right Brachial artery] O2 Saturation 08/22/19 08/22/19 08/22/19 04:00 04:30 04:35 Temperature 36.7 C Heart Rate [ 82 81 80 Monitoring electrodes] Respiratory 13 Rate Blood Pressure 112/65 112/77 97/76 [Right Brachial artery] O2 Saturation 08/22/19 08/22/19 08/22/19 04:40 04:45 04:50 Temperature Heart Rate [ 79 80 80 Monitoring electrodes] Respiratory Rate Blood Pressure 99/75 102/74 95/73 [Right Brachial artery] O2 Saturation 08/22/19 08/22/19 08/22/19 05:00 05:25 05:30 Temperature Heart Rate [ 78 84 82 Monitoring electrodes] Respiratory 11 L Rate Blood Pressure 93/72 107/70 103/76 [Right Brachial artery] O2 Saturation 08/22/19 08/22/19 08/22/19 05:35 05:40 05:45 Temperature Heart Rate [ 80 80 82 Monitoring electrodes] Respiratory Rate Blood Pressure 103/77 100/79 103/75 [Right Brachial artery] O2 Saturation 08/22/19 08/22/19 08/22/19 06:00 06:20 06:30 Temperature Heart Rate [ 79 83 79 Monitoring electrodes] Respiratory 11 L Rate Blood Pressure 103/74 97/71 89/52 L [Right Brachial artery] O2 Saturation 08/22/19 08/22/19 08/22/19 08:00 09:00 10:00 Temperature 36.6 C Heart Rate [ 87 86 86 Monitoring electrodes] Respiratory 11 L 13 24 Rate Blood Pressure 98/87 H 85/68 L 99/76 [Right Brachial artery] O2 Saturation 95 96 08/22/19 12:00 Temperature Heart Rate [ 90 Monitoring electrodes] Respiratory 15 Rate Blood Pressure 100/84 H [Right Brachial artery] O2 Saturation Oxygen O2 Source Room air I&O (Last 24 Hrs): Intake and Output Totals x24h 08/20/19 08/21/19 08/22/19 23:59 23:59 23:59 Intake Total 3062.333 2068.511 291.010 Output Total 875 0 500 Balance 2187.333 2068.511 -208.990 General: Alert, Oriented x3, Other (Somnolent but awoke easily. Speech is slurred.) HEENT: Mucous membr. moist/pink, Other (L cheek is swollen and bruised.) Neuro: Alert, Non Focal, Speech Slurred Cardiovascular: Regular rate, No murmurs Respiratory: No respiratory distress, Breath sounds nml Abdomen: Soft Extremities: Other (4+ edema to upper thighs.) - Results Results: Laboratory Results WBC 8.5 x10^3/uL (4.8-10.8) 08/22/19 05:30 RBC 2.24 10^6/uL (4.70-6.10) L 08/22/19 05:30 Hgb 8.6 g/dL (14.0-18.0) L 08/22/19 05:30 Hct 24.2 % (42.0-52.0) L 08/22/19 05:30 MCV 108.0 fL (80.0-94.0) H 08/22/19 05:30 MCH 38.4 pg (27.0-31.0) H 08/22/19 05:30 MCHC 35.5 g/dL (32.0-36.0) 08/22/19 05:30 RDW 16.9 % (12.0-15.0) H 08/22/19 05:30 Plt Count 153 10^3/uL (130-450) 08/22/19 05:30 MPV 11.1 fL (7.4-11.4) 08/22/19 05:30 Neut # (Auto) 6.1 10^3/uL (1.5-6.6) 08/22/19 05:30 Lymph # (Auto) 1.4 10^3/uL (1.5-3.5) L 08/22/19 05:30 [place] # (Auto) 0.8 10^3/uL (0.0-1.0) 08/22/19 05:30 Eos # (Auto) 0.2 10^3/uL (0.0-0.7) 08/22/19 05:30 Baso # (Auto) 0.0 10^3/uL (0.0-0.1) 08/22/19 05:30 Absolute Nucleated RBC 0.00 x10^3/uL 08/22/19 05:30 Total Counted 100 08/21/19 05:30 Band Neuts % (Manual) 4 % (0-10) 08/21/19 05:30 Abnorm Lymph % (Manual) 1 % 08/21/19 05:30 Nucleated RBC % 0.0 /100WBC 08/22/19 05:30 Neutrophils # (Manual) 9.4 10^3/uL (1.5-6.6) H 08/21/19 05:30 Lymphocytes # (Manual) 1.5 10^3/uL (1.5-3.5) 08/21/19 05:30 Monocytes # (Manual) 0.5 10^3/uL (0.0-1.0) 08/21/19 05:30 Eosinophils # (Manual) 0.0 10^3/uL (0-0.7) 08/21/19 05:30 Basophils # (Manual) 0.0 10^3/uL (0-0.1) 08/21/19 05:30 Differential Comment MANUAL DIFFERENTIAL 08/21/19 05:30 WBC Morphology NORMAL APPEARANCE (NORMAL) 08/21/19 05:30 Platelet Estimate NORMAL (130-450,000) (NORMAL) 08/21/19 05:30 Platelet Morphology NORMAL APPEARANCE (NORMAL) 08/21/19 05:30 RBC Morph Micro Appear 1+ HYPOCHROMASIA (NORMAL) 08/21/19 05:30 PT 22.3 secs (9.9-12.6) H 08/21/19 05:30 INR 2.0 (0.8-1.2) H 08/21/19 05:30 APTT 37.9 secs (24.9-33.3) H 08/19/19 15:04 Sodium 136 mmol/L (135-145) 08/22/19 05:30 Potassium 3.8 mmol/L (3.5-5.0) 08/22/19 05:30 Chloride 105 mmol/L (101-111) 08/22/19 05:30 Carbon Dioxide 24 mmol/L (21-32) 08/22/19 05:30 Anion Gap 7.0 (6-13) 08/22/19 05:30 BUN 9 mg/dL (6-20) 08/22/19 05:30 Creatinine 1.2 mg/dL (0.6-1.2) 08/22/19 05:30 Estimated GFR (MDRD) 63 (>89) L 08/22/19 05:30 Glucose 85 mg/dL (70-100) 08/22/19 05:30 Calcium 7.3 mg/dL (8.5-10.3) L 08/22/19 05:30 Iron 45 ug/dL (45-182) 08/22/19 05:30 Transferrin < 70 mg/dL (180-329) L 08/22/19 05:30 Total Bilirubin 6.7 mg/dL (0.2-1.0) H 08/22/19 05:30 AST 114 IU/L (10-42) H 08/22/19 05:30 ALT 64 IU/L (10-60) H 08/22/19 05:30 Alkaline Phosphatase 143 IU/L (42-121) H 08/22/19 05:30 Ammonia 57.1 umol/L (7-35) H 08/22/19 05:30 Total Creatine Kinase 28 IU/L (22-269) 08/21/19 05:30 B-Natriuretic Peptide 754 pg/mL (5-100) H 08/21/19 05:30 Total Protein 4.5 g/dL (6.7-8.2) L 08/22/19 05:30 Albumin 1.7 g/dL (3.2-5.5) L 08/22/19 05:30 Globulin 2.8 g/dL (2.1-4.2) 08/22/19 05:30 Albumin/Globulin Ratio 0.6 (1.0-2.2) L 08/22/19 05:30 Lipase 34 U/L (22-51) 08/19/19 15:04 Vitamin B12 3967 pg/mL (180-914) H 08/22/19 05:30 Folate 13.91 ng/mL (5.90 - >24.8) 08/22/19 05:30 Urine Color YELLOW 08/19/19 16:20 Urine Clarity CLEAR (CLEAR) 08/19/19 16:20 Urine pH 6.0 PH (5.0-7.5) 08/19/19 16:20 Ur Specific [place] <=1.005 (1.002-1.030) 08/19/19 16:20 Urine Protein NEGATIVE mg/dL (NEGATIVE) 08/19/19 16:20 Urine Glucose (UA) NEGATIVE mg/dL (NEGATIVE) 08/19/19 16:20 Urine Ketones NEGATIVE mg/dL (NEGATIVE) 08/19/19 16:20 Urine Occult Blood NEGATIVE (NEGATIVE) 08/19/19 16:20 Urine Nitrite NEGATIVE (NEGATIVE) 08/19/19 16:20 Urine Bilirubin MODERATE (NEGATIVE) H 08/19/19 16:20 Urine Urobilinogen 2 E.U./dL (NORMAL) H 08/19/19 16:20 Ur Leukocyte Esterase NEGATIVE (NEGATIVE) 08/19/19 16:20 Ur Microscopic Review NOT INDICATED 08/19/19 16:20 Urine Culture Comments NOT INDICATED 08/19/19 16:20 Nasal Screen MRSA (PCR) NEGATIVE (NEGATIVE) 08/19/19 18:15 Ethyl Alcohol 194.4 mg/dL 08/19/19 15:04 - Procedures Procedures: Procedures INSPECTION OF LOWER INTESTINAL TRACT, ENDO (01/25/18) Sepsis Event Note (H) - Evaluation Current Stage of Sepsis: Ruled out
[2019-08-22] MEDS: SPIRONOLACTONE 25 MG TABLET PO SCH (17:31)
[2019-08-23] MEDS: LORazepam 1 MG TABLET PO SCH ×3 (00:32→17:19)
[2019-08-23] MEDS: SODIUM CHLORIDE FLUSH 0.9% 10 ML SYRINGE IVP SCH ×3 (02:57→17:23)
[2019-08-23] MEDS: FUROSEMIDE 20 MG/2 ML VIAL IVP SCH ×2 (05:36→14:20)
[2019-08-23] MEDS: SODIUM CHLORIDE FLUSH 0.9% 10 ML SYRINGE IVP PRN ×3 (05:36→05:37)
[2019-08-23 05:57] LABS: BASOPHILS % (AUTO) 0.3 %; EOSINOPHILS % (AUTO) 1.5 %; HGB - HEMOGLOBIN 8.9 g/dL (14.0-18.0); LYMPHOCYTES % (AUTO) 12.7 %; MEAN CORPUSCULAR HEMOGLOBIN 38.4 pg (27.0-31.0); MEAN CORPUSCULAR HGB CONC 35.5 g/dL (32.0-36.0); MEAN CORPUSCULAR VOLUME 108.2 fL (80.0-94.0); MEAN PLATELET VOLUME 11.3 fL (7.4-11.4); MONOCYTES % (AUTO) 6.9 %; NEUTROPHILS % (AUTO) 78.2 %; PLT - PLATELET COUNT 147 10^3/uL (130-450); RED BLOOD COUNT 2.32 10^6/uL (4.70-6.10); WHITE BLOOD COUNT 6.9 x10^3/uL (4.8-10.8)
[2019-08-23 06:05] LABS: ALBUMIN 1.6 g/dL (3.2-5.5); ALBUMIN/GLOBULIN RATIO 0.6 (1.0-2.2); BILIRUBIN,TOTAL 6.7 mg/dL (0.2-1.0); CALCIUM 7.3 mg/dL (8.5-10.3); TOTAL PROTEIN 4.4 g/dL (6.7-8.2)
[2019-08-23] MEDS: PANTOPRAZOLE 40 MG TABLET PO SCH (06:05)
[2019-08-23 06:26] LABS: ABNORMAL LYMPHS % (MANUAL) 1 %; BAND NEUTROPHILS % (MANUAL) 13 %; EOSINOPHILS # (MANUAL) 0.1 10^3/uL (0-0.7); LYMPHOCYTES # (MANUAL) 0.6 10^3/uL (1.5-3.5); LYMPHOCYTES % (MANUAL) 8 %; MONOCYTES # (MANUAL) 0.3 10^3/uL (0.0-1.0)
[2019-08-23 06:27] LABS: PLATELET ESTIMATE, MANUAL NORMAL (130-450,000) (NORMAL); PLATELET MORPHOLOGY NORMAL APPEARANCE (NORMAL)
[2019-08-23 06:28] LABS: DIFFERENTIAL COMMENT MANUAL DIFFERENTIAL
[2019-08-23] MEDS: DICLOFENAC SODIUM DR 75 MG TABLET PO SCH ×2 (08:24→17:19)
[2019-08-23] MEDS: GABAPENTIN 100 MG CAPSULE PO SCH ×2 (08:26→20:52)
[2019-08-23] MEDS: TAMSULOSIN 0.4 MG CAPSULE PO SCH (08:26)
[2019-08-23] MEDS: MULTIVITAMIN TABLET PO SCH (08:26)
[2019-08-23] MEDS: FAMOTIDINE 20 MG TABLET PO SCH (08:27)
[2019-08-23] MEDS: DULoxetine 30 MG CAPSULE PO SCH (08:27)
[2019-08-23] MEDS: predniSONE 20 MG TABLET PO SCH (08:27)
[2019-08-23] MEDS: SPIRONOLACTONE 25 MG TABLET PO SCH ×3 (08:27→17:25)
[2019-08-23] MEDS: FOLIC ACID 1 MG TABLET PO SCH (08:27)
[2019-08-23] MEDS: THIAMINE 100 MG TABLET PO SCH (08:27)
[2019-08-23] MEDS: LACTULOSE 10 GM/15 ML BOTTLE PO SCH ×4 (08:28→20:52)
[2019-08-23] MEDS: MIDODRINE 2.5 MG TABLET PO SCH ×3 (08:28→17:19)
--- NOTE | 2019-08-23 11:10 | PROVIDER PROGRESS NOTE ---
Subjective - Prog Note Date Prog Note Date: 08/07/19 Prog Note Time: 11:07 - Subjective Pt reports feeling: Improved Subjective: In sitting down and talking about his alcohol abuse today, he shares with me that he was actually in rehab in [place] in an effort to address his alcohol abuse. He was there only a few days when he felt "off his stool" and rehab. The rehab facility transferred him to an acute care facility for evaluation of rib fractures or trauma. Once that hospital discharge him after couple of days he came home. Once here he started drinking again and now he is with this in liver failure. He is on Lasix, albumin, Levophed was stopped August 21. Received steroids once. Nursing reports that this is the most alert he has been. He is appropriate. Weak and shaky but alert and appropriately responsive. Current Medications - Current Medications Current Medications: Active Medications Acetaminophen (Tylenol) 500 mg PO Q6HR PRN PRN Reason: Pain 1 to 4 Last Admin: 08/21/19 23:26 Dose: 325 mg Diclofenac Sodium (Voltaren) 75 mg PO BIDWM [facility] Last Admin: 08/23/19 08:24 Dose: 75 mg Duloxetine HCl (Cymbalta) 30 mg PO DAILY [facility] Last Admin: 08/23/19 08:27 Dose: 30 mg Famotidine (Pepcid) 20 mg PO DAILY [facility] Last Admin: 08/23/19 08:27 Dose: 20 mg Folic Acid () 1 mg PO DAILY [facility] Last Admin: 08/23/19 08:27 Dose: 1 mg Furosemide (Lasix Inj 20mg Vial) 20 mg IVP BIDDIURETIC [facility] Last Admin: 08/23/19 05:36 Dose: 20 mg Gabapentin (Neurontin) 200 mg PO BID [facility] Last Admin: 08/23/19 08:26 Dose: 200 mg Heparin Sodium (Beef Lung) () 30 - 50 unit IVP PRN PRN PRN Reason: Central Line Protocol (<24 hr) Last Admin: 08/22/19 17:29 Dose: 100 unit Sodium Chloride (Normal Saline 0.9%) 500 mls @ 0 mls/hr IV Q24H PRN PRN Reason: TKO RATE Last Infusion: 08/22/19 05:31 Dose: 0 mls/hr Norepinephrine Bitartrate 8 mg (/ Dextrose) 250 mls @ 15 mls/hr IV .[id number] [facility]; Protocol Last Admin: 08/22/19 20:10 Dose: Not Given Lactulose (Lactulose) 30 gm PO QID [facility] Last Admin: 08/23/19 08:28 Dose: 30 gm Lidocaine HCl (Xylocaine Uro-Jet 2%) 2.5 ml UR Q6H PRN PRN Reason: PAIN Lorazepam (Ativan Inj (Vial)) 1 mg IVP Q30M PRN; Protocol PRN Reason: CIWA >8 Last Admin: 08/20/19 08:02 Dose: 1 mg Lorazepam (Ativan) 1 mg PO Q8H [facility] Last Admin: 08/23/19 08:28 Dose: 1 mg Midodrine () 5 mg PO TIDWM [facility] Last Admin: 08/23/19 08:28 Dose: 5 mg Multivitamins (Theragran) 1 tab PO DAILYWM [facility] Last Admin: 08/23/19 08:26 Dose: 1 tab Ondansetron HCl (Zofran Inj) 4 mg IVP Q4HR PRN PRN Reason: Nausea / Vomiting Pantoprazole Sodium (Protonix) 40 mg PO QDAC [facility] Last Admin: 08/23/19 06:05 Dose: 40 mg Prednisone (Deltasone) 40 mg PO DAILYWM [facility] Last Admin: 08/23/19 08:27 Dose: 40 mg Sodium Chloride (Normal Saline Flush 0.9%) 10 ml IVP PRN PRN PRN Reason: NEEDED PER PROVIDER ORDERS Last Admin: 08/23/19 05:37 Dose: 10 ml Sodium Chloride (Normal Saline Flush 0.9%) 10 ml IVP 0100,0900,1700 [facility] Last Admin: 08/23/19 08:28 Dose: 10 ml Sodium Chloride (Normal Saline Flush 0.9%) 20 ml IVP PRN PRN PRN Reason: After Blood Draw Last Admin: 08/23/19 05:36 Dose: 20 ml Spironolactone (Aldactone) 25 mg PO BIDWM [facility] Last Admin: 08/23/19 10:07 Dose: Not Given Tamsulosin HCl (Flomax) 0.4 mg PO DAILY [facility] Last Admin: 08/23/19 08:26 Dose: 0.4 mg Thiamine HCl (Vitamin B-1) 100 mg PO DAILY [facility] Last Admin: 08/23/19 08:27 Dose: 100 mg Zolpidem Tartrate (Ambien) 5 mg PO HS PRN PRN Reason: Insomnia Cholecalciferol (Vitamin D3) [Vitamin D3] 1,000 mcg PO DAILY 06/25/19 Cyanocobalamin (Vitamin B-12) [Vitamin B-12] 1,000 mcg SL DAILY 06/25/19 Duloxetine HCl 30 mg PO DAILY 06/25/19 Gabapentin 600 mg PO BID 06/25/19 Multivitamin [Theragran] 1 tab PO DAILY 06/25/[address] [Voltaren] 75 mg PO BIDWM 08/19/19 Famotidine [Pepcid] 20 mg PO DAILY 08/19/19 Furosemide [Lasix] 40 mg PO DAILY 08/19/19 Lorazepam [Ativan] 1 mg PO Q6H PRN 08/19/19 Potassium Chloride [K-Dur] 20 meq PO DAILYWM 08/19/19 Propranolol HCl 20 mg PO TID 08/19/19 Zolpidem [Ambien] 5 mg PO HS PRN 08/19/19 Objective - Vital Signs/Intake & Output Reviewed Vital Signs: Yes Vital Signs: Vital Signs x48h Temp Pulse Resp BP Pulse Ox 08/23/19 10:00 95 11 L 92/61 08/23/19 09:00 36.5 C 95 15 103/76 97 08/23/19 08:00 36.5 C 93 13 102/70 08/23/19 07:00 94 16 108/85 H 08/23/19 06:05 82 12 98/78 08/23/19 05:00 36.7 C 107 H 14 111/66 97 08/23/19 04:00 88 11 L 91/68 Intake & Output: Intake & Output 08/20/19 08/21/19 08/22/19 08/23/19 23:59 23:59 23:59 23:59 Intake Total 3062.333 2068.511 801.010 760 Output Total 875 0 500 100 Balance 2187.333 2068.511 301.010 660 - Objective General Appearance: positive: No acute distress, Alert, Other (Sitting up in a chair, eating breakfast, slightly tremulous, but appropriate in his speech, history, and interactions with me and that speech is lucid, sequential, history seems appropriate) Eyes Bilateral: positive: PERRL ENT: positive: Other (Poor dentition) Neck: positive: No JVD. negative: Stiff neck, Carotid bruit Respiratory: positive: Chest non-tender, No respiratory distress, Rales Cardiovascular: positive: Regular rate & rhythm. negative: Gallop/S4, Friction rub Abdomen: positive: Non-tender, Nml bowel sounds, No distention Skin: positive: Warm, Dry Extremities: positive: Full ROM, Pedal edema, Other (Poor hygiene. Knuckles of his toes have eschars on them.) Neurologic/Psychiatric: positive: Oriented x3 (Except unclear on the date sometimes. Will stop and correct himself with this history as he reorients the timeline), CN's nml (2-12), Motor nml (Minimal tremulousness) - Lab Results Fish Bones: 08/23/19 05:30 08/23/19 05:30 Other Labs: Lab Results x24hrs 08/23/19 08/23/19 08/23/19 Range/Units 05:30 05:30 05:30 WBC 6.9 (4.8-10.8) x10^3/uL RBC 2.32 L (4.70-6.10) 10^6/uL Hgb 8.9 L (14.0-18.0) g/dL Hct 25.1 L (42.0-52.0) % MCV 108.2 H (80.0-94.0) fL MCH 38.4 H (27.0-31.0) pg MCHC 35.5 (32.0-36.0) g/dL RDW 17.0 H (12.0-15.0) % Plt Count 147 (130-450) 10^3/uL MPV 11.3 (7.4-11.4) fL Neut # (Auto) Not Reportable Lymph # (Auto) Not Reportable [place] # (Auto) Not Reportable Eos # (Auto) Not Reportable Baso # (Auto) Not Reportable Absolute Nucleated RBC Not Reportable Total Counted 100 Band Neuts % (Manual) 13 H (0 - 10) % Abnorm Lymph % (Manual) 1 % Nucleated RBC % Not Reportable Neutrophils # (Manual) 5.9 (1.5-6.6) 10^3/uL Lymphocytes # (Manual) 0.6 L (1.5-3.5) 10^3/uL Monocytes # (Manual) 0.3 (0.0-1.0) 10^3/uL Eosinophils # (Manual) 0.1 (0-0.7) 10^3/uL Basophils # (Manual) 0.0 (0-0.1) 10^3/uL Differential Comment MANUAL DIFFERENTIAL WBC Morphology NORMAL APPEARANCE (NORMAL) Platelet Estimate NORMAL (130-450,000) (NORMAL) Platelet Morphology NORMAL APPEARANCE (NORMAL) RBC Morph Micro Appear 1+ TARGET CELLS (NORMAL) Sodium 139 (135-145) mmol/L Potassium 3.9 (3.5-5.0) mmol/L Chloride 105 (101-111) mmol/L Carbon Dioxide 24 (21-32) mmol/L Anion Gap 10.0 (6-13) BUN 11 (6-20) mg/dL Creatinine 1.0 (0.6-1.2) mg/dL Estimated GFR (MDRD) 78 L (>89) Glucose 80 (70-100) mg/dL Calcium 7.3 L (8.5-10.3) mg/dL Total Bilirubin 6.7 H (0.2-1.0) mg/dL AST 80 H (10-42) IU/L ALT 54 (10-60) IU/L Alkaline Phosphatase 128 H (42-121) IU/L Ammonia 57.4 H (7-35) umol/L Total Protein 4.4 L (6.7-8.2) g/dL Albumin 1.6 L (3.2-5.5) g/dL Globulin 2.8 (2.1-4.2) g/dL Albumin/Globulin Ratio 0.6 L (1.0-2.2) ABX Reporting Has patient been on IV antibiotics over the past 48 hours?: No Sepsis Event Note (H) - Evaluation Current Stage of Sepsis: Ruled out Assessment/Plan - Problem List (1) Alcoholic liver failure Impression: Assessment/Plan: On admission patient had MELD score 21 which indicates 3-month estimated mortality rate at 19.6% and Maddrey's discriminant function is 46.9. Patient liberally drank 2 L of water 08/20, according to his I's and O's, and was not in negative fluid balance. Review fluid balance shows positive status daily: (+)3202 >2187 >2069> 301>660 so far today Started IV Lasix 3 times daily 08/21. Remain in the ICU in case he needs a Levophed drip while getting aggressive diuretics. Diet orders adjusted to indicate 2000 cc/day total fluids including 1000 cc/day from his diet, and of that only 600 cc/day can be free water. His ammonia is slightly better. He is getting lactulose. He is requesting Imodium. He was seen by PT yesterday: Patient was supine in bed with most lines and cords disconnected by nursing. P loramercedes was compliant to participate in therapy. Patient was able to uncover himself from bed, supine <> sit, and sit<> stand with SBA. Patient inquired about using the restroom and was motivated to stand to do so. Patient was able to walk with walker to bathroom with SBA ~15 feet. Patient was then able to stand for ~ 3 minute, manage brief, and aim correctly for the toilet. Patient had fair balance. Patient ambulated ~ 20 feet around room without FWW and CGA. After ambulation, he requested to use restroom as he was working on a bowel movement. Nurse entered and stated that she could change brief for patient. Patient was left on toilet in nurses care with gait belt donned. He has been discharged from their service. Plan is for him to go home once this acute episode of care has been resolved. Follow CMP, follow ammonia daily. (2) Hypotension still ongoing Most likely due to intravascular volume depletion in the face of liver failure, with low albumin as well. No signs of infection on exam or history. He was moved into the ICU the night of the because of significant hypotension and started on Levophed drip. It was felt to be from intravascular volume depletion from needing Lasix and spironolactone, not septic shock and not cardiogenic shock. The Levophed drip was titrated to off at 0400 08/21 and Midodrine started. Following that, in the subsequent 2 hours, his blood pressure dropped again to 89 systolic. Looking at his I's and O's, the patient drank 2 L of liquids 08/20 and started on IV Lasix 08/21. He will need to stay in the ICU for probable Levophed use again but I am changing to Med Surg status until then while he is getting diuretics. Right now systolic is 92-108. (3) Alcoholic hepatitis and hepatic encephalopathy Qualifiers: Ascites presence: without ascites Qualified Code(s): K70.10 - Alcoholic hepatitis without ascites Assessment/Plan: In the ER, casino floor supervisor was consulted advised to follow the up-to-date protocol using steroids. The patient is getting prednisone, thiamine, diuretics for his ascites and leg edema. He is getting lactulose and ammonia is being followed. (4) Alcohol abuse Assessment/Plan: The patient is icteric, ataxic but does not have a "liver flap". He was getting scheduled Ativan which made him sleepy and with slurred speech. Ativan decreased from every 6 hours to every 8 hours. He told his HAND BOX FOLDER Provider, before transfering into the ICU, that he would agree to alcohol rehab, when he is clinically stable. He can participate with PT in the ICU, if BP stable. Apparently, he was already in rehab in [place]. (5) JULIANNE (acute kidney injury) Assessment/Plan: Creat [place]on to 1.3 from 0.9 with hypotension and is 1.2> 1.0 today. He may have hepato-renal syndrome. Watch creat daily as diuresing. (6) Anemia Qualifiers: Anemia type: iron deficiency Assessment/Plan: His B12 and folate levels were adequate. His iron stores are low. We will start daily oral iron replacement. Follow CBC daily.
[2019-08-23] MEDS ORDERED: FLU VACC QS2019-20(6MOS UP)/PF 60 MCG/0.5 ML SYRINGE IM ONE (17:35)
[2019-08-24] MEDS: LORazepam 1 MG TABLET PO SCH ×4 (00:31→21:38)
[2019-08-24] MEDS: SODIUM CHLORIDE FLUSH 0.9% 10 ML SYRINGE IVP SCH ×2 (04:58→05:10)
[2019-08-24] MEDS: SODIUM CHLORIDE FLUSH 0.9% 10 ML SYRINGE IVP PRN ×2 (04:58→05:10)
[2019-08-24] MEDS: FUROSEMIDE 20 MG/2 ML VIAL IVP SCH (05:10)
[2019-08-24] MEDS: PANTOPRAZOLE 40 MG TABLET PO SCH (05:10)
[2019-08-24 05:45] LABS: EOSINOPHILS # (AUTO) 0.1 10^3/uL (0.0-0.7); HGB - HEMOGLOBIN 8.5 g/dL (14.0-18.0); LYMPHOCYTES % (AUTO) 14.4 %; MEAN CORPUSCULAR HEMOGLOBIN 36.5 pg (27.0-31.0); MEAN CORPUSCULAR HGB CONC 34.4 g/dL (32.0-36.0); MEAN PLATELET VOLUME 11.6 fL (7.4-11.4); MONOCYTES # (AUTO) 0.7 10^3/uL (0.0-1.0); MONOCYTES % (AUTO) 9.8 %; NEUTROPHILS # (AUTO) 5.3 10^3/uL (1.5-6.6); NEUTROPHILS % (AUTO) 74.4 %; RED BLOOD COUNT 2.33 10^6/uL (4.70-6.10); RED CELL DISTRIBUTION WIDTH 17.2 % (12.0-15.0); WHITE BLOOD COUNT 7.2 x10^3/uL (4.8-10.8)
[2019-08-24 05:56] LABS: PLT - PLATELET COUNT 138 10^3/uL (130-450)
[2019-08-24 06:22] LABS: ALBUMIN 1.6 g/dL (3.2-5.5); ALBUMIN/GLOBULIN RATIO 0.6 (1.0-2.2); BILIRUBIN,TOTAL 5.8 mg/dL (0.2-1.0); CALCIUM 7.1 mg/dL (8.5-10.3); CREATININE 0.9 mg/dL (0.6-1.2); TOTAL PROTEIN 4.3 g/dL (6.7-8.2)
[2019-08-24] MEDS: FOLIC ACID 1 MG TABLET PO SCH (08:37)
[2019-08-24] MEDS: predniSONE 20 MG TABLET PO SCH (08:37)
[2019-08-24] MEDS: MULTIVITAMIN TABLET PO SCH (08:38)
[2019-08-24] MEDS: GABAPENTIN 100 MG CAPSULE PO SCH ×2 (08:38→21:39)
[2019-08-24] MEDS: DULoxetine 30 MG CAPSULE PO SCH (08:38)
[2019-08-24] MEDS: TAMSULOSIN 0.4 MG CAPSULE PO SCH (08:38)
[2019-08-24] MEDS: MIDODRINE 2.5 MG TABLET PO SCH ×3 (08:38→17:01)
[2019-08-24] MEDS: FAMOTIDINE 20 MG TABLET PO SCH (08:38)
[2019-08-24] MEDS: SPIRONOLACTONE 25 MG TABLET PO SCH ×2 (08:38→17:01)
[2019-08-24] MEDS: LACTULOSE 10 GM/15 ML BOTTLE PO SCH ×4 (08:39→21:38)
[2019-08-24] MEDS: THIAMINE 100 MG TABLET PO SCH (08:41)
[2019-08-24] MEDS: DICLOFENAC SODIUM DR 75 MG TABLET PO SCH ×2 (08:45→17:01)
--- NOTE | 2019-08-24 13:44 | PROVIDER PROGRESS NOTE ---
Subjective - Prog Note Date Prog Note Date: 08/24/19 Prog Note Time: 13:44 - Subjective Pt reports feeling: Improved Subjective: Stew complains of having low energy and is reserved about being so far away for [place] as his mother will not have an easy time with visiting. He has no new complaints today on review of systems. Current Medications - Current Medications Current Medications: Active Medications: Acetaminophen (Tylenol) 500 mg PO Q6HR PRN Diclofenac Sodium (Voltaren) 75 mg PO BIDWM [facility] Duloxetine HCl (Cymbalta) 30 mg PO DAILY [facility] Famotidine (Pepcid) 20 mg PO DAILY [facility] Folic Acid 1 mg PO DAILY [facility] Furosemide (Lasix) 40 mg PO DAILY [facility] Gabapentin (Neurontin) 200 mg PO BID [facility] Heparin Sodium (Beef Lung) 30 - 50 unit IVP PRN PRN Lactulose (Lactulose) 30 gm PO BID [facility] Lidocaine HCl (Xylocaine Uro-Jet 2%) 2.5 ml UR Q6H PRN Lorazepam Ativan 1 mg PO Q6H [facility] Midodrine 5 mg PO TIDWM [facility] Multivitamins (Theragran) 1 tab PO DAILYWM [facility] Ondansetron HCl (Zofran Inj) 4 mg IVP Q4HR PRN Pantoprazole Sodium (Protonix) 40 mg PO QDAC [facility] Prednisone (Deltasone) 40 mg PO DAILYWM [facility] Spironolactone (Aldactone) 25 mg PO BIDWM [facility] Tamsulosin HCl (Flomax) 0.4 mg PO BID [facility] Thiamine HCl (Vitamin B-1) 100 mg PO DAILY [facility] HOME meds: Cholecalciferol (Vitamin D3) [Vitamin D3] 1,000 mcg PO DAILY 06/25/19 Cyanocobalamin (Vitamin B-12) [Vitamin B-12] 1,000 mcg SL DAILY 06/25/19 Duloxetine HCl 30 mg PO DAILY 06/25/19 Gabapentin 600 mg PO BID 06/25/19 Multivitamin [Theragran] 1 tab PO DAILY 06/25/[address] [Voltaren] 75 mg PO BIDWM 08/19/19 Famotidine [Pepcid] 20 mg PO DAILY 08/19/19 Furosemide [Lasix] 40 mg PO DAILY 08/19/19 Lorazepam [Ativan] 1 mg PO Q6H PRN 08/19/19 Potassium Chloride [K-Dur] 20 meq PO DAILYWM 08/19/19 Propranolol HCl 20 mg PO TID 08/19/19 Zolpidem [Ambien] 5 mg PO HS PRN 08/19/19 Objective - Vital Signs/Intake & Output Reviewed Vital Signs: Yes Vital Signs: Vital Signs x48h Temp Pulse Resp BP Pulse Ox 08/24/19 09:13 37 C 104 H 16 110/79 95 Intake & Output: Intake & Output 08/21/19 08/22/19 08/23/19 08/24/19 23:59 23:59 23:59 23:59 Intake Total 2068.511 480.092 8533.009 786 Output Total 0 500 500 Balance 2067.511 301.010 560.009 786 - Objective General Appearance: positive: No acute distress, Alert Eyes: OU Scleral icterus (bilaterally, impressive) ENT: positive: Pharyngeal erythema, Dry mucous membranes Neck: positive: Trachea midline, Lymphadenopathy (R), Lymphadenopathy (L), Stiff neck Respiratory: positive: Chest non-tender, No respiratory distress, Breath sounds nml Cardiovascular: positive: Regular rate & rhythm, Irregularly irregular, Tachycardia, JVD present, Systolic murmur, Decreased pulse(s) Peripheral Pulses: 1+ Radial (R), 1+ Radial (L) Abdomen: positive: Non-tender, Nml bowel sounds, Guarding, Other (rounded, obese, soft) Back: positive: Nml inspection Skin: positive: No rash, Warm, Dry, Other (jaundice, yellowing mostly on face/neck, less on extremities) Extremities: positive: Pedal edema, Joint swelling, Other (stiffness in joints, ongoing left greater than right ankle discomfort) Neurologic/Psychiatric: positive: Oriented x3, CN's nml (2-12), Weakness, Sensory loss, Slurred/abnml speech (sluggish speech), Depressed mood/affect. negative: Sensation nml (decreased peripheral sensation, baseline) Reflexes: Bicep (R): 2+, Bicep (L): 2+ - Lab Results Fish Bones: 08/24/19 05:05 08/24/19 05:50 Other Labs: Lab Results x24hrs 08/24/19 08/24/19 Range/Units 05:50 05:05 WBC 7.2 (4.8-10.8) x10^3/uL RBC 2.33 L (4.70-6.10) 10^6/uL Hgb 8.5 L (14.0-18.0) g/dL Hct 24.7 L (42.0-52.0) % MCV 106.0 H (80.0-94.0) fL MCH 36.5 H (27.0-31.0) pg MCHC 34.4 (32.0-36.0) g/dL RDW 17.2 H (12.0-15.0) % Plt Count 138 (130-450) 10^3/uL MPV 11.6 H (7.4-11.4) fL Neut # (Auto) 5.3 (1.5-6.6) 10^3/uL Lymph # (Auto) 1.0 L (1.5-3.5) 10^3/uL [place] # (Auto) 0.7 (0.0-1.0) 10^3/uL Eos # (Auto) 0.1 (0.0-0.7) 10^3/uL Baso # (Auto) 0.0 (0.0-0.1) 10^3/uL Absolute Nucleated RBC 0.00 x10^3/uL Nucleated RBC % 0.0 /100WBC Sodium 138 (135-145) mmol/L Potassium 3.8 (3.5-5.0) mmol/L Chloride 107 (101-111) mmol/L Carbon Dioxide 26 (21-32) mmol/L Anion Gap 5.0 L (6-13) BUN 15 (6-20) mg/dL Creatinine 0.9 (0.6-1.2) mg/dL Estimated GFR (MDRD) 88 L (>89) Glucose 85 (70-100) mg/dL Calcium 7.1 L (8.5-10.3) mg/dL Total Bilirubin 5.8 H (0.2-1.0) mg/dL AST 64 H (10-42) IU/L ALT 45 (10-60) IU/L Alkaline Phosphatase 126 H (42-121) IU/L Total Protein 4.3 L (6.7-8.2) g/dL Albumin 1.6 L (3.2-5.5) g/dL Globulin 2.7 (2.1-4.2) g/dL Albumin/Globulin Ratio 0.6 L (1.0-2.2) ABX Reporting Has patient been on IV antibiotics over the past 48 hours?: No Sepsis Event Note (H) - Evaluation Current Stage of Sepsis: Ruled out Assessment/Plan - Problem List (1) Alcoholic liver failure Impression: -LFTs are grossly abnormal at: ALT 355, now 309, ALT 116, now 110, alk phos 206, now 187, ammonia 48.2, now 67.6, and total bili 8.3, now 7.5 -Maddrey's discriminant function is 46.9 -MELD score is 21 -Both indicate a high mortality rate -Recommend cessation -CIWA protocol per nursing -follow up with non categorical preschool teacher outpatient, give steroids -Routine labs Volume overload -Ongoing anasarca, all extremities, increased abdominal girth on exam, although less pitting as compared to several days ago -No respiratory compromise -Continues on diuretic therapy with midodrine to sustain B/Ps and allow for diur esis -Bladder scans, I/O's daily weights -Reduced IV lasix today to start PO lasix in the morning Hypotension -hypotension while in the ER, even after 2L IV fluids -Status post levophed gtt with ICU cares, Albumin infusions -Still with light blood pressures, intermittent -Continues on midodrine to maintain at least SBPs of 100 -Continue to monitor Alcohol dependence -Last alcoholic beverage was 3-4 hour prior to coming to the ED on 08/19/2019 -Serum alcohol level is 194 on admit -Patient has longstanding history of alcohol abuse -Status post CIWA protocol -Continue oral multi-vitamin, folic acid -Seizure precautions, neuro checks Alcoholic hepatitis -Longstanding excessive alcohol consumption leading to falls resulting in separate hip fractures requiring repair -Continues with daily drinking -Recommend follow up with a non categorical preschool teacher Jaundice -Elevated total bilirubin of 8.3 and jaundice with scleral icterus, on exam -Recommend patient to stop drinking -Social work consult JULIANNE -Baseline serum creatinine is ~ 0.9, now resolved ROSALBA -Iron studies show low iron -Continues on daily supplement -Low H/H at 8.5/29 today -Routine labs Fall -Injury to left later ribs, head abrasion, and ankle -No head imaging, likely due to no changes in mental status -Continues to have a headache, but may be more related to CIWA/withdrawal -Baseline ambulation is with a walker, minimally functional, lives with mother -PT to see daily Ataxia -Fall causing minor injury, patient states his left ribs hurt, +headache, and his left ankle feels sore -PT/OT, fall precautions, seizure precautions BPH -Patient complains of pain in his bilateral inner thighs, which extends up into his low abdomen -The pain comes and goes -Nocturia with trips to the bathroom at home, "too many to count" -Risk factors of CAD, immobility, longstanding ETOH -Continues on Flomax, bladder scans per shift to check for post void residuals Depression with anxiety -Life long alcoholism, dysfunctional coping, lives permanently with his mother -Takes Cymbalta at home, continues here, PRN lorazepam -Recommend close follow up, dual diagnoses alcoholic treatment in patient rehab
[2019-08-25] MEDS: ACETAMINOPHEN 325 MG TABLET PO PRN ×2 (00:32→09:32)
[2019-08-25] MEDS: SODIUM CHLORIDE FLUSH 0.9% 10 ML SYRINGE IVP SCH ×2 (00:35→08:28)
[2019-08-25] MEDS: SODIUM CHLORIDE FLUSH 0.9% 10 ML SYRINGE IVP PRN ×2 (00:35)
[2019-08-25] MEDS: LORazepam 1 MG TABLET PO SCH ×2 (03:56→09:32)
[2019-08-25] MEDS: PANTOPRAZOLE 40 MG TABLET PO SCH (05:50)
[2019-08-25] MEDS: FOLIC ACID 1 MG TABLET PO SCH (08:27)
[2019-08-25] MEDS: THIAMINE 100 MG TABLET PO SCH (08:27)
[2019-08-25] MEDS: SPIRONOLACTONE 25 MG TABLET PO SCH (08:27)
[2019-08-25] MEDS: MIDODRINE 2.5 MG TABLET PO SCH ×2 (08:27→12:03)
[2019-08-25] MEDS: FAMOTIDINE 20 MG TABLET PO SCH (08:27)
[2019-08-25] MEDS: GABAPENTIN 100 MG CAPSULE PO SCH (08:27)
[2019-08-25] MEDS: MULTIVITAMIN TABLET PO SCH (08:27)
[2019-08-25] MEDS: predniSONE 20 MG TABLET PO SCH (08:27)
[2019-08-25] MEDS: DULoxetine 30 MG CAPSULE PO SCH (08:27)
[2019-08-25] MEDS: TAMSULOSIN 0.4 MG CAPSULE PO SCH (08:27)
[2019-08-25] MEDS: DICLOFENAC SODIUM DR 75 MG TABLET PO SCH (08:28)
[2019-08-25] MEDS: LACTULOSE 10 GM/15 ML BOTTLE PO SCH ×2 (08:30→14:44)
[2019-08-25] MEDS ORDERED: FUROSEMIDE 40 MG TABLET PO SCH (09:00)
[2019-08-25 09:29] VITALS: BP 116/91
--- NOTE | 2019-08-25 10:48 | Discharge Plan ---
Discharge Plan Problem Reviewed?: Yes Disposition: Home, Self Care Condition: Good Prescriptions: Gabapentin [Neurontin] 300 mg PO BID #60 capsule Lactulose 30 gm PO QID #120 bottle Midodrine HCl 5 mg PO TIDWM #90 tablet predniSONE [Deltasone] 20 mg PO DAILYWM #30 tablet Propranolol HCl 20 mg PO DAILY #30 tablet Spironolactone [Aldactone] 25 mg PO BIDWM #60 tablet Tamsulosin [Flomax] 0.4 mg PO BID #60 capsule Diet: Low Sodium (Restrict fluids to less than 2 liters per 24 hours) Activity Restrictions: Activity as Tolerated Shower Restrictions: No Instruction Topics: Tamsulosin capsules, Midodrine tablets, Spironolactone tablets, Cirrhosis Health Concerns: Alcoholic liver failure Volume overload Depression with anxiety Social support Upcoming Rehab on 08/30/2019 Plan of Treatment: Continue the medications to properly offload extra fluid which accumulates caused by liver failure. STOP all alcoholic beverages to preserve your liver function. For your hypotension, you were started on a medication called Midodrine to be taken with meals (3 times per day), which will allow for the diuretics to work well. Please do not take any potassium supplements since you have started a medication called spironolactone (which holds onto potassium). Please continue taking Flomax to reduce frequency of urination to hopefully improve your sleep. We initially took you completely off the gabapentin, but soon resumed at a lower dose. Gabapentin at higher doses can be a little harsh on your kidneys, and also can lead to urinary retention, cause dizziness, unbalanced walking and fatigue. Keep taking a daily steroid for improved liver health. Care Goals: Progress to rehab as scheduled on the 29 of August Prevent ED visits or hospital stays Regain full independence with your walking Assessment: You were admitted to the hospital for low blood pressures caused by acute liver failure. This eventually led to ICU level care due to the requirement of a continuous infusion of a medication to keep your blood pressure up. You slowly got through this, and it became apparent that during this hospital stay, you have had correction damage to your liver. After working with social workers, you have graciously decided to go to a rehab center to get back on the right track. Complete abstinence of alcohol may lead to regeneration of the liver to the point that you will live for several more years. This will also improve with the proper use of medications to ensure proper volume status. You are medically stable to return home today. New prescriptions are already at the pharmacy. Additional Instructions or Follow Up instructions: Your MELD score (Model for End-stage Liver Disease) is high at 12 and is used to predict the course of your liver disease over the next 3 months. This all depends on eliminating all further toxins to the liver. The MELD score is routinely re-calculated depending on other potential liver complications and your successful treatment program. For your hypotension, you were started on a medication called Midodrine to be taken with meals (3 times per day), which will allow for the diuretics to work well. Please do not take any potassium supplements since you have started a medication called spironolactone (which holds onto potassium). Please continue taking Flomax to reduce frequency of urination to hopefully improve your sleep. We initially took you completely off the gabapentin, but soon resumed at a lower dose. Gabapentin at higher doses can be a little harsh on your kidneys, and also can lead to urinary retention, cause dizziness, unbalanced walking and fatigue. Keep taking a daily steroid for improved liver health. No Smoking: If you smoke, Please STOP! Call for help. Follow-up with: Rah Beckett PA-C [Primary Care Provider] -
--- NOTE | 2019-08-25 12:23 | DISCHARGE SUMMARY ---
Discharge Summary Admit Date: 08/19/19 Discharge Date: 08/25/19 Discharging Provider: CANDICE Kingsley Primary Care Provider: Rah Beckett PA-C Code Status: Attempt Resuscitation Condition at Discharge: Good Discharge Disposition: 01 Home, Self Care - DIAGNOSES Discharge Diagnoses with Status of Each Condition: Alcoholic liver failure-Present on admission, LFTs improved, patient remained jaundice with very yellow bilateral sclera, improved since admission, expected to improve if the patient continues complete abstinence of alcohol Volume overload-Ongoing, stable Hypotension-Chronic, continue midodrine at home, stable Alcohol dependence-Chronic, considered nearly in remission, rehab is pending Alcoholic hepatitis-Chronic, stable Jaundice-Chronic, stable JULIANNE (acute kidney injury)-Chronic, stable Iron deficiency anemia-Chronic, stable Fall-Chronic, stable Ataxia-Chronic, back to baseline, using a walker, stable BPH (benign prostatic hyperplasia)-Chronic, started on flomax to be continued at home, stable Depression with anxiety-Chronic, stable - HPI History of Present Illness: Stew Sanz is a 54-year-old gentleman with a past medical history of alcohol abuse, liver failure, substance abuse, history of Guillain Marble syndrome diagnosed in 2010, hypertension, idiopathic neuropathy, chronic right hip arthralgia, chronic pain, & depression with anxiety. He was brought to the ED vi a EMS after several falls, progressive unsteady gait, jaundice, and low blood pressures. The patient initially reported to EMS that he hadn't had any alcohol for 3-4 days, but changed his story to 1100 today (3-4 hours ago). He denies nausea or vomiting but occasionally he has abdominal pain. Upon the admitting providers exam, the patient denied chest pain, fevers, chills, or a cough. A MELD score was calculated, giving the patient an approximate mortality rate at 19.6%. A general surgical consult was made by the ED provider to discuss the treatment, and they recommended an admission for IV steroids and IV fluids. Labs showed; a total bilirubin of 8.3, AST 355, Alt 116, Alk 206, Ammonia 48.2, INR 1.8. The patient was afebrile, but was found to have hypotension with a blood pressure of 87/66. The patient was admitted for inpatient care, and he requested to remain a FULL code. - HOSPITAL COURSE Hospital Course: The patient was admitted to the hospital for hypotension caused by acute liver failure. This eventually led to ICU level care due to the requirement of a continuous Levophed infusion. He slowly got through this, and it became apparent that during this hospital stay, the patient had suffered from adjunct faculty for medical terminology liver damage. After working with social workers, the patient graciously decided to go to a rehab center to get back on the right track. Complete abstinence of alcohol may lead to regeneration of the liver to the point that he may live for several more years. This will also improve with the proper use of medications to ensure proper volume status. The patient was medically stable to return home today. New prescriptions are already at the pharmacy. - ALLERGIES Allergies/Adverse Reactions: Allergies Allergy/AdvReac Type Severity Reaction Status Date / Time lisinopril Allergy Mild Anaphylaxis Verified 08/19/19 14:58 - MEDICATIONS Home Medications: Ambulatory Orders Medication Instructions Recorded Confirmed Folic Acid 1 mg PO DAILY #30 tablet 08/30/16 08/19/19 Thiamine HCl [Vitamin B-1] 100 mg PO DAILY #30 tablet 08/17/18 08/19/19 Cholecalciferol (Vitamin D3) 1,000 mcg PO DAILY 06/25/19 08/19/19 [Vitamin D3] Cyanocobalamin (Vitamin B-12) 1,000 mcg SL DAILY 06/25/19 08/19/19 [Vitamin B-12] Duloxetine HCl 30 mg PO DAILY 06/25/19 08/19/19 Multivitamin [Theragran] 1 tab PO DAILY 06/25/19 08/19/[address] [Voltaren] 75 mg PO BIDWM 08/19/19 08/19/19 Famotidine [Pepcid] 20 mg PO DAILY 08/19/19 08/19/19 Furosemide [Lasix] 40 mg PO DAILY 08/19/19 08/19/19 Lorazepam [Ativan] 1 mg PO Q6H PRN 08/19/19 08/19/19 Zolpidem [Ambien] 5 mg PO HS PRN 08/19/19 08/19/19 Gabapentin [Neurontin] 300 mg PO BID #60 capsule 08/25/19 Lactulose 30 gm PO QID #120 bottle 08/25/19 Midodrine HCl 5 mg PO TIDWM #90 tablet 08/25/19 Propranolol HCl 20 mg PO DAILY #30 tablet 08/25/19 Spironolactone [Aldactone] 25 mg PO BIDWM #60 tablet 08/25/19 Tamsulosin [Flomax] 0.4 mg PO BID #60 capsule 08/25/19 predniSONE [Deltasone] 20 mg PO DAILYWM #30 tablet 08/25/19 - PHYSICAL EXAM AT DISCHARGE General Appearance: positive: No acute distress, Alert Eyes Bilateral: positive: PERRL. negative: No scleral icterus (severe yellowing of sclera, bilaterally) ENT: positive: Pharynx nml, Dry mucous membranes Neck: positive: Trachea midline, Stiff neck Respiratory: positive: Chest non-tender, No respiratory distress, Other (scattered crackles, bilaterally) Cardiovascular: positive: Regular rate & rhythm, Tachycardia, JVD present (trace, mild), Systolic murmur Peripheral Pulses: positive: 1+ Abdomen: positive: Non-tender, Hepatomegaly, Abnml bowel sounds, Other (rounded, soft) Back: positive: Nml inspection Skin: positive: No rash, Warm, Dry, Other (jaundice, less on extremities). negative: Laceration (cm) (No current lacerations, but prior "cutting" on extremities) Extremities: positive: Non-tender, Pedal edema (Moderate BLE edema, non-pitting, abdominal edema, trace to BUEs), Joint swelling Neurologic/Psychiatric: positive: Oriented x3, CN's nml (2-12), Motor nml, Weakness, Sensory loss, Depressed mood/affect (flat) Reflexes: Bicep (R): 3+, Bicep (L): 3+ - LABS Result Diagrams: 08/24/19 05:05 08/24/19 05:50 - SEPSIS Current Stage of Sepsis: Ruled out - FOLLOW UP Follow Up: Proceed to rehab for Alcoholism inpatient treatment. - TIME SPENT Time Spent in Discharge (Minutes): 55
[2019-08-25] MEDS ORDERED: PROPRANOLOL 10 MG TABLET PO ONE (12:33)
== END 2019-08-25 14:50 | disposition home or self-care (01) | DRG 433 ==
LOC: EDUNIT# → ED 14:41 → ICU 17:36 → MS3 08-23 19:34
PROVIDERS: ADMIT Nurse Practitioner Gerontology; ATTEND Nurse Practitioner
PROC: 02H633Z Insertion of Infusion Device into Right Atrium, Percutaneous Approach (ICD-10-PCS; principal; 2019-08-20)
PROC: B548ZZA Ultrasonography of Superior Vena Cava, Guidance (ICD-10-PCS; 2019-08-20)
DX: K70.40 Alcoholic hepatic failure without coma (principal); N17.9 Acute kidney failure, unspecified; K70.10 Alcoholic hepatitis without ascites; I95.9 Hypotension, unspecified; E78.00 Pure hypercholesterolemia, unspecified; K70.11 Alcoholic hepatitis with ascites; F10.229 Alcohol dependence with intoxication, unspecified; K70.31 Alcoholic cirrhosis of liver with ascites; F32.9 Major depressive disorder, single episode, unspecified; F41.0 Panic disorder [episodic paroxysmal anxiety]; Y90.6 Blood alcohol level of 120-199 mg/100 ml; E87.70 Fluid overload, unspecified; D50.9 Iron deficiency anemia, unspecified; R27.0 Ataxia, unspecified; R51 Headache; N40.1 Benign prostatic hyperplasia with lower urinary tract symptoms; R35.1 Nocturia; R35.0 Frequency of micturition; F41.8 Other specified anxiety disorders; F40.240 Claustrophobia; G60.9 Hereditary and idiopathic neuropathy, unspecified; K21.9 Gastro-esophageal reflux disease without esophagitis; M19.90 Unspecified osteoarthritis, unspecified site; G89.29 Other chronic pain; M25.551 Pain in right hip; G47.30 Sleep apnea, unspecified; S29.9XXA Unspecified injury of thorax, initial encounter; S00.91XA Abrasion of unspecified part of head, initial encounter; S99.919A Unspecified injury of unspecified ankle, initial encounter; W19.XXXA Unspecified fall, initial encounter; Z96.649 Presence of unspecified artificial hip joint; Z79.899 Other long term (current) drug therapy; Z91.81 History of falling; Z86.69 Personal history of other diseases of the nervous system and sense organs; Z87.891 Personal history of nicotine dependence
CPT/HCPCS: 36415; 71045; 80053; 81003; 82140; 82272; 82550; 82607; 82746; 83540; 83690; 83880; 84466; 85025; 85610; 85730; 87150; 96361; 96365; 96375; 97162; 97530; 99284; 99285; A9270; J2060; J3411; J7512; J8499; P9047; 80320; 81001; 87086

== ENCOUNTER 2019-08-28 15:19 | Emergency (ER) | payer MEDICARE ==
[2019-08-28] MEDS ORDERED: THIAMINE INJ 500 MG in SODIUM CHLORIDE 0.9% 50 ML IV STA (15:36)
--- NOTE | 2019-08-28 15:50 | ED Physician Documentation ---
PD HPI FOCAL NEURO - Stated complaint Stated Complaint: WEAKNESS - Chief complaint Chief Complaint: Neuro - History obtained from History obtained from: Patient - History of Present Illness Timing - onset: Today (This is a 54-year-old gentleman who is well-known to the emergency department for longstanding alcoholism. More recently has started to develop alcoholic liver failure and was admitted here from the through the of this month for liver failure associated with hypotension for which he was for a while on a Levophed drip. He returns today for unclear reasons. Reportedly general weakness but he is really unable to formulate any specific reason he is here. He denies being drunk but admits to drinking today.) Review of Systems Unable to obtain: Intoxicated PD PAST MEDICAL HISTORY - Past Medical History Cardiovascular: Hypertension, High cholesterol Respiratory: Sleep apnea, CPAP use Neuro: Headaches, Other Endocrine/Autoimmune: None, Other GI: GERD, Pancreatitis, Cirrhosis : Incontinence HEENT: None Psych: Depression, Anxiety, Panic attacks, Claustrophobia Musculoskeletal: Osteoarthritis Derm: None - Past Surgical History Past Surgical History: Yes Ortho: Hip replacement, Arthroscopic surgery HEENT: Tracheostomy - Present Medications Home Medications: Ambulatory Orders Medication Instructions Recorded Confirmed Folic Acid 1 mg PO DAILY #30 tablet 08/30/16 08/19/19 Thiamine HCl [Vitamin B-1] 100 mg PO DAILY #30 tablet 08/17/18 08/19/19 Cholecalciferol (Vitamin D3) 1,000 mcg PO DAILY 06/25/19 08/19/19 [Vitamin D3] Cyanocobalamin (Vitamin B-12) 1,000 mcg SL DAILY 06/25/19 08/19/19 [Vitamin B-12] Duloxetine HCl 30 mg PO DAILY 06/25/19 08/19/19 Multivitamin [Theragran] 1 tab PO DAILY 06/25/19 08/19/[address] [Voltaren] 75 mg PO BIDWM 08/19/19 08/19/19 Famotidine [Pepcid] 20 mg PO DAILY 08/19/19 08/19/19 Furosemide [Lasix] 40 mg PO DAILY 08/19/19 08/19/19 Lorazepam [Ativan] 1 mg PO Q6H PRN 08/19/19 08/19/19 Zolpidem [Ambien] 5 mg PO HS PRN 08/19/19 08/19/19 Gabapentin [Neurontin] 300 mg PO BID #60 capsule 08/25/19 Lactulose 30 gm PO QID #120 bottle 08/25/19 Midodrine HCl 5 mg PO TIDWM #90 tablet 08/25/19 Propranolol HCl 20 mg PO DAILY #30 tablet 08/25/19 Spironolactone [Aldactone] 25 mg PO BIDWM #60 tablet 08/25/19 Tamsulosin [Flomax] 0.4 mg PO BID #60 capsule 08/25/19 predniSONE [Deltasone] 20 mg PO DAILYWM #30 tablet 08/25/19 - Allergies Allergies/Adverse Reactions: Allergies Allergy/AdvReac Type Severity Reaction Status Date / Time lisinopril Allergy Mild Anaphylaxis Verified 08/19/19 14:58 - Social History Does the pt smoke?: No Smoking Status: Never smoker Does the pt drink ETOH?: Yes Does the pt have substance abuse?: Yes - Immunizations Immunizations are current?: Yes Immunizations: Other immun not current - POLST Patient has POLST: No POLST Status: DNR (pt clearly state to me it is DNR, Pt's mother at the bedside did not say no.) PD ED PE NORMAL - Vitals Vital signs reviewed: Yes - General General: Other (He is alert and oriented to person and place but not time or events) - HEENT HEENT: Other (Scleral icterus with mildly dilated pupils and a lot of nystagmus. No obvious cranial nerve defects.) - Neck Neck: Supple, no meningeal sign, No bony TTP - Cardiac Cardiac: RRR, No murmur - Respiratory Respiratory: No respiratory distress, Clear bilaterally - Abdomen Abdomen: Other (Mildly distended but not tender or tense) - Back Back: No CVA TTP - Derm Derm: Normal color, Warm and dry - Extremities Extremities: Other (3+ lower extremity edema) - Neuro Neuro: No motor deficit, No sensory deficit, Other (Slow slurred speech) Eye Opening: Spontaneous Motor: Obeys Commands Verbal: Confused GCS Score: 14 - Psych Psych: Normal mood, Normal affect Results - Vitals Vitals: Vital Signs - 24 hr 08/28/19 08/28/19 15:26 16:27 Temperature 36.6 C Heart Rate 87 87 Respiratory 16 16 Rate Blood Pressure 99/69 95/72 O2 Saturation 99 96 Oxygen O2 Source Room air - Labs Labs: Laboratory Tests 08/28/19 08/28/19 08/28/19 15:50 15:50 16:00 WBC RBC Hgb Hct MCV MCH MCHC RDW Plt Count MPV Neut # (Auto) Lymph # (Auto) [place] # (Auto) Eos # (Auto) Baso # (Auto) Absolute Nucleated RBC Nucleated RBC % PT 19.6 H INR 1.8 H Sodium 135 Potassium 3.9 Chloride 102 Carbon Dioxide 22 Anion Gap 11.0 BUN 24 H Creatinine 0.9 Estimated GFR (MDRD) 88 L Glucose 105 H Calcium 7.6 L Magnesium 1.4 L Total Bilirubin 5.9 H AST 57 H ALT 29 Alkaline Phosphatase 166 H Ammonia 16.1 Total Protein 5.3 L Albumin 1.7 L Globulin 3.6 Albumin/Globulin Ratio 0.5 L Lipase 35 Ethyl Alcohol 119.4 08/28/19 16:00 WBC 16.0 H RBC 3.10 L Hgb 11.3 L Hct 33.4 L MCV 107.7 H MCH 36.5 H MCHC 33.8 RDW 15.4 H Plt Count 182 MPV 11.3 Neut # (Auto) 13.4 H Lymph # (Auto) 1.2 L [place] # (Auto) 1.1 H Eos # (Auto) 0.1 Baso # (Auto) 0.1 Absolute Nucleated RBC 0.00 Nucleated RBC % 0.0 PT INR Sodium Potassium Chloride Carbon Dioxide Anion Gap BUN Creatinine Estimated GFR (MDRD) Glucose Calcium Magnesium Total Bilirubin AST ALT Alkaline Phosphatase Ammonia Total Protein Albumin Globulin Albumin/Globulin Ratio Lipase Ethyl Alcohol PD MEDICAL DECISION MAKING - ED course ED course: 54-year-old gentleman presents intoxicated with ongoing alcoholic liver disease. No apparent acute complaints. He sobered up in the department. His liver enzymes and other chemistries really are not any different than they were on p rior admission. He requested discharge so he could go to his AA meeting at 6 PM tonight. He is advised to quit drinking. The health and social care teacher saw him and they will touch base tomorrow to get him into rehab. Departure - Departure Disposition: 01 Home, Self Care Clinical Impression: Alcohol intoxication Qualifiers: Complication of substance-induced condition: with delirium Qualified Code(s): F10.921 - Alcohol use, unspecified with intoxication delirium Condition: Good Record reviewed to determine appropriate education?: Yes Instructions: ED Alcohol Intoxication Comments: custodial maintenance worker will call you tomorrow to figure out the timing of rehab. My in information suggest that you will actually start rehab tomorrow. Call us by early afternoon if you have not heard from them. Take the medications you were prescribed on discharge. Return for new or worsening symptoms. It is imperative you quit drinking, you will soon if you do not.
[2019-08-28 16:04] LABS: BASOPHILS # (AUTO) 0.1 10^3/uL (0.0-0.1); BASOPHILS % (AUTO) 0.7 %; EOSINOPHILS # (AUTO) 0.1 10^3/uL (0.0-0.7); EOSINOPHILS % (AUTO) 0.4 %; HGB - HEMOGLOBIN 11.3 g/dL (14.0-18.0); LYMPHOCYTES # (AUTO) 1.2 10^3/uL (1.5-3.5); LYMPHOCYTES % (AUTO) 7.3 %; MEAN CORPUSCULAR HEMOGLOBIN 36.5 pg (27.0-31.0); MEAN CORPUSCULAR HGB CONC 33.8 g/dL (32.0-36.0); MEAN CORPUSCULAR VOLUME 107.7 fL (80.0-94.0); MEAN PLATELET VOLUME 11.3 fL (7.4-11.4); MONOCYTES # (AUTO) 1.1 10^3/uL (0.0-1.0); MONOCYTES % (AUTO) 6.7 %; NEUTROPHILS # (AUTO) 13.4 10^3/uL (1.5-6.6); NEUTROPHILS % (AUTO) 83.8 %; PLT - PLATELET COUNT 182 10^3/uL (130-450); RED CELL DISTRIBUTION WIDTH 15.4 % (12.0-15.0)
[2019-08-28] MEDS ORDERED: THIAMINE 100 MG/1 ML 2 ML MDV ONE (16:07)
[2019-08-28 16:13] LABS: INR 1.8 (0.8-1.2); PT - PROTHROMBIN TIME 19.6 secs (9.9-12.6)
[2019-08-28 16:18] LABS: ALBUMIN 1.7 g/dL (3.2-5.5); ALBUMIN/GLOBULIN RATIO 0.5 (1.0-2.2); BILIRUBIN,TOTAL 5.9 mg/dL (0.2-1.0); CALCIUM 7.6 mg/dL (8.5-10.3); CREATININE 0.9 mg/dL (0.6-1.2); MAGNESIUM 1.4 mg/dL (1.7-2.8); TOTAL PROTEIN 5.3 g/dL (6.7-8.2)
[2019-08-28 17:30] VITALS: BP 98/68
== END 2019-08-28 17:30 | disposition home or self-care (01) ==
LOC: ED 15:19
DX: F10.129 Alcohol abuse with intoxication, unspecified (principal); I10 Essential (primary) hypertension; K70.9 Alcoholic liver disease, unspecified; Z66 Do not resuscitate
CPT/HCPCS: 36415; 80053; 82140; 83690; 83735; 85025; 85610; 96365; 99281; 99284; J3411; J7040; 80320

== ENCOUNTER 2019-09-14 08:00 | Outpatient (CLI) | payer MEDICARE, MEDICAID ==
[2019-09-14 16:37] LABS: BASOPHILS % (AUTO) 0.3 %; EOSINOPHILS % (AUTO) 0.3 %; HGB - HEMOGLOBIN 11.2 g/dL (14.0-18.0); LYMPHOCYTES # (AUTO) 0.3 10^3/uL (1.5-3.5); LYMPHOCYTES % (AUTO) 2.9 %; MEAN CORPUSCULAR HEMOGLOBIN 35.3 pg (27.0-31.0); MEAN CORPUSCULAR HGB CONC 32.7 g/dL (32.0-36.0); MEAN CORPUSCULAR VOLUME 108.2 fL (80.0-94.0); MEAN PLATELET VOLUME 9.5 fL (7.4-11.4); MONOCYTES # (AUTO) 0.5 10^3/uL (0.0-1.0); NEUTROPHILS # (AUTO) 9.4 10^3/uL (1.5-6.6); NEUTROPHILS % (AUTO) 90.9 %; PLT - PLATELET COUNT 525 10^3/uL (130-450); RED BLOOD COUNT 3.17 10^6/uL (4.70-6.10); RED CELL DISTRIBUTION WIDTH 13.8 % (12.0-15.0); WHITE BLOOD COUNT 10.3 x10^3/uL (4.8-10.8)
[2019-09-14 17:00] LABS: ALBUMIN 3.6 g/dL (3.2-5.5); ALKALINE PHOSPHATASE 108 IU/L (42-121); ALT ALANINE AMINOTRANSFERASE 38 IU/L (10-60); AST ASPARTATE AMINOTRANSFERASE 52 IU/L (10-42); BILIRUBIN,TOTAL 2.5 mg/dL (0.2-1.0); BUN - BLOOD UREA NITROGEN 19 mg/dL (6-20); CALCIUM 9.2 mg/dL (8.5-10.3); CARBON DIOXIDE - CO2 24 mmol/L (21-32); CHLORIDE 96 mmol/L (101-111); CHOL/HDL RATIO 4.8 (<5.0); CHOLESTEROL 138 mg/dL; CREATININE 0.8 mg/dL (0.6-1.2); GLUCOSE 89 mg/dL (70-100); HDL CHOLESTEROL 29 mg/dL; LDL CHOLESTEROL,CALCULATED 93 mg/dL; LDL/HDL RATIO 3.2 (<3.6); SODIUM 132 mmol/L (135-145); TOTAL PROTEIN 7.3 g/dL (6.7-8.2); VLDL CHOLESTEROL 16 mg/dL
== END 2019-09-14 23:59 | disposition home or self-care (01) ==
LOC: LAB.WCP 08:00
PROVIDERS: ATTEND Family Medicine
DX: R74.8 Abnormal levels of other serum enzymes (principal); E03.9 Hypothyroidism, unspecified
CPT/HCPCS: 36415; 80053; 80061; 81599; 82390; 82785; 83516; 83721; 84443; 85025; 85610; 85730; 86038; 86376

== ENCOUNTER 2019-10-07 08:00 | Outpatient (CLI) | payer MEDICARE, MEDICAID ==
[2019-10-07 17:52] LABS: BASOPHILS % (AUTO) 0.3 %; EOSINOPHILS # (AUTO) 0.2 10^3/uL (0.0-0.7); EOSINOPHILS % (AUTO) 2.7 %; HGB - HEMOGLOBIN 10.3 g/dL (14.0-18.0); LYMPHOCYTES # (AUTO) 1.3 10^3/uL (1.5-3.5); MEAN CORPUSCULAR HEMOGLOBIN 33.3 pg (27.0-31.0); MEAN CORPUSCULAR HGB CONC 33.2 g/dL (32.0-36.0); MEAN CORPUSCULAR VOLUME 100.3 fL (80.0-94.0); MEAN PLATELET VOLUME 9.3 fL (7.4-11.4); MONOCYTES # (AUTO) 0.8 10^3/uL (0.0-1.0); MONOCYTES % (AUTO) 13.3 %; NEUTROPHILS # (AUTO) 3.9 10^3/uL (1.5-6.6); NEUTROPHILS % (AUTO) 62.2 %; PLT - PLATELET COUNT 361 10^3/uL (130-450); RED BLOOD COUNT 3.09 10^6/uL (4.70-6.10); RED CELL DISTRIBUTION WIDTH 14.3 % (12.0-15.0); WHITE BLOOD COUNT 6.2 x10^3/uL (4.8-10.8)
[2019-10-07 18:01] LABS: CALCIUM 8.6 mg/dL (8.5-10.3); CREATININE 0.7 mg/dL (0.6-1.2)
== END 2019-10-07 23:59 | disposition home or self-care (01) ==
LOC: LAB.WCP 08:00
PROVIDERS: ATTEND Physician Assistant Medical
DX: K70.10 Alcoholic hepatitis without ascites (principal)
CPT/HCPCS: 36415; 80048; 85025

== ENCOUNTER 2019-10-10 18:51 | Outpatient (CLI) | payer MEDICARE, MEDICAID | END 2019-10-10 18:52 | disposition home or self-care (01) | LOC: COV 18:51 | PROVIDERS: ATTEND Family Medicine | DX: R50.9 Fever, unspecified (principal); Z20.828 Contact with and (suspected) exposure to other viral communicable diseases | CPT/HCPCS: 81599 ==

== ENCOUNTER 2019-10-11 07:00 | Outpatient (CLI) | payer MEDICARE, MEDICAID | END 2019-10-11 23:59 | disposition home or self-care (01) | LOC: LAB.R 07:00 | PROVIDERS: ATTEND Physician Assistant Medical | DX: K92.1 Melena (principal) | CPT/HCPCS: 82274 ==

== ENCOUNTER 2019-10-20 11:10 | Emergency (ER) | payer MEDICARE, MEDICAID ==
[2019-10-20 12:51] LABS: BASOPHILS % (AUTO) 0.8 %; EOSINOPHILS # (AUTO) 0.1 10^3/uL (0.0-0.7); EOSINOPHILS % (AUTO) 2.5 %; HGB - HEMOGLOBIN 11.6 g/dL (14.0-18.0); LYMPHOCYTES # (AUTO) 1.4 10^3/uL (1.5-3.5); LYMPHOCYTES % (AUTO) 25.9 %; MEAN CORPUSCULAR HEMOGLOBIN 32.3 pg (27.0-31.0); MEAN CORPUSCULAR HGB CONC 32.7 g/dL (32.0-36.0); MEAN CORPUSCULAR VOLUME 98.9 fL (80.0-94.0); MEAN PLATELET VOLUME 8.5 fL (7.4-11.4); MONOCYTES # (AUTO) 0.7 10^3/uL (0.0-1.0); MONOCYTES % (AUTO) 12.9 %; NEUTROPHILS % (AUTO) 57.3 %; PLT - PLATELET COUNT 517 10^3/uL (130-450); RED BLOOD COUNT 3.59 10^6/uL (4.70-6.10); WHITE BLOOD COUNT 5.3 x10^3/uL (4.8-10.8)
[2019-10-20 13:03] LABS: INR 1.3 (0.8-1.2); PT - PROTHROMBIN TIME 14.7 secs (9.9-12.6)
[2019-10-20 13:10] LABS: PARTIAL THROMBOPLASTIN TIME 43.5 secs (24.9-33.3)
[2019-10-20 13:13] LABS: ALBUMIN/GLOBULIN RATIO 0.8 (1.0-2.2); BILIRUBIN,TOTAL 1.2 mg/dL (0.2-1.0); CREATININE 0.6 mg/dL (0.6-1.2); MAGNESIUM 1.7 mg/dL (1.7-2.8); TOTAL PROTEIN 6.9 g/dL (6.7-8.2)
[2019-10-20 13:33] VITALS: BP 108/78
--- NOTE | 2019-10-20 13:47 | ED Physician Documentation ---
PD HPI NVD - Stated complaint Stated Complaint: MED REFILL - Chief complaint Chief Complaint: General - History obtained from History obtained from: Patient - History of Present Illness Timing - onset: How many days ago (he says he was in hospital in [facility] when he got ill during alcohol detox. He was treated for edema/liver failure and discharged on several meds, including Prednisone. He is scheduled to see GI in [place] in 2 weeks. He thought he was supposed to stay on Prednisone but has run out. He has his other meds. Had not had labs since mid September when discharged.) Timing - duration: Days Timing - details: Gradual onset, Waxing and waning (he had some RUQ pains c/w liver inflammation (as previously Dx). Able to eat. He says he has not had edema since discharged.) Associated symptoms: Abdominal pain. No: Fever, Chest pain, Loss of appetite, Weight loss Contributing factors: No: Sick contact, Alcohol use (he says he has not had any alcohol since August.), Diabetes Similar symptoms before: Diagnosis (liver failure from alcohol) Review of Systems Constitutional: denies: Fever, Chills Nose: denies: Rhinorrhea / runny nose, Congestion Throat: denies: Sore throat Respiratory: denies: Cough GI: denies: Nausea, Vomiting, Diarrhea, Bloody / black stool Musculoskeletal: denies: Extremity swelling PD PAST MEDICAL HISTORY - Past Medical History Cardiovascular: Hypertension, High cholesterol Respiratory: Sleep apnea, CPAP use Neuro: Headaches, Other Endocrine/Autoimmune: None, Other GI: GERD, Pancreatitis, Cirrhosis : Incontinence HEENT: None Psych: Depression, Anxiety, Panic attacks, Claustrophobia Musculoskeletal: Osteoarthritis Derm: None - Past Surgical History Past Surgical History: Yes Ortho: Hip replacement, Arthroscopic surgery HEENT: Tracheostomy - Present Medications Home Medications: Ambulatory Orders Medication Instructions Recorded Confirmed Folic Acid 1 mg PO DAILY #30 tablet 08/30/16 08/19/19 Thiamine HCl [Vitamin B-1] 100 mg PO DAILY #30 tablet 08/17/18 08/19/19 Cholecalciferol (Vitamin D3) 1,000 mcg PO DAILY 06/25/19 08/19/19 [Vitamin D3] Cyanocobalamin (Vitamin B-12) 1,000 mcg SL DAILY 06/25/19 08/19/19 [Vitamin B-12] Duloxetine HCl 30 mg PO DAILY 06/25/19 08/19/19 Multivitamin [Theragran] 1 tab PO DAILY 06/25/19 08/19/[address] [Voltaren] 75 mg PO BIDWM 08/19/19 08/19/19 Famotidine [Pepcid] 20 mg PO DAILY 08/19/19 08/19/19 Furosemide [Lasix] 40 mg PO DAILY 08/19/19 08/19/19 Lorazepam [Ativan] 1 mg PO Q6H PRN 08/19/19 08/19/19 Zolpidem [Ambien] 5 mg PO HS PRN 08/19/19 08/19/19 Gabapentin [Neurontin] 300 mg PO BID #60 capsule 08/25/19 Lactulose 30 gm PO QID #120 bottle 08/25/19 Midodrine HCl 5 mg PO TIDWM #90 tablet 08/25/19 Propranolol HCl 20 mg PO DAILY #30 tablet 08/25/19 Spironolactone [Aldactone] 25 mg PO BIDWM #60 tablet 08/25/19 Tamsulosin [Flomax] 0.4 mg PO BID #60 capsule 08/25/19 predniSONE [Deltasone] 20 mg PO DAILYWM #30 tablet 08/25/19 predniSONE [Deltasone] 10 mg PO DAILY #15 tablet 10/20/19 - Allergies Allergies/Adverse Reactions: Allergies Allergy/AdvReac Type Severity Reaction Status Date / Time lisinopril Allergy Mild Anaphylaxis Verified 10/20/19 11:15 - Social History Does the pt smoke?: No Smoking Status: Never smoker Does the pt drink ETOH?: Yes Does the pt have substance abuse?: Yes - Immunizations Immunizations are current?: Yes Immunizations: Other immun not current - POLST Patient has POLST: No POLST Status: DNR (pt clearly state to me it is DNR, Pt's mother at the bedside did not say no.) PD ED PE NORMAL - Vitals Vital signs reviewed: Yes - General General: 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, No acute distress, Well developed/nourished - Cardiac Cardiac: RRR, No murmur - Respiratory Respiratory: Clear bilaterally Results - Vitals Vitals: Vital Signs - 24 hr 10/20/19 10/20/19 11:15 13:31 Temperature 36.5 C 36.9 C Heart Rate 106 H 97 Respiratory 18 14 Rate Blood Pressure 111/82 H 108/78 O2 Saturation 100 100 Oxygen O2 Source Room air - Labs Labs: Laboratory Tests 10/20/19 10/20/19 10/20/19 12:43 12:43 12:43 WBC 5.3 RBC 3.59 L Hgb 11.6 L Hct 35.5 L MCV 98.9 H MCH 32.3 H MCHC 32.7 RDW 15.0 Plt Count 517 H MPV 8.5 Neut # (Auto) 3.0 Lymph # (Auto) 1.4 L [place] # (Auto) 0.7 Eos # (Auto) 0.1 Baso # (Auto) 0.0 Absolute Nucleated RBC 0.00 Nucleated RBC % 0.0 PT 14.7 H INR 1.3 H APTT 43.5 H Sodium 137 Potassium 3.4 L Chloride 101 Carbon Dioxide 27 Anion Gap 9.0 BUN 6 Creatinine 0.6 Estimated GFR (MDRD) 140 Glucose 108 H Calcium 9.0 Magnesium 1.7 Total Bilirubin 1.2 H AST 32 ALT 15 Alkaline Phosphatase 94 Total Protein 6.9 Albumin 3.0 L Globulin 3.9 Albumin/Globulin Ratio 0.8 L Lipase 25 PD MEDICAL DECISION MAKING - ED course Complexity details: reviewed results, considered differential (can continue the Prednisone until GI appt. Tried to get d/c summary from [facility] but has not heard back from them as yet. ), d/w patient Departure - Departure Disposition: 01 Home, Self Care Clinical Impression: Liver disease due to alcohol Condition: Stable Record reviewed to determine appropriate education?: Yes Instructions: Cirrhosis Liver Dc Follow-Up: Shimon Cooper MD [Primary Care Provider] - Prescriptions: predniSONE [Deltasone] 10 mg PO DAILY #15 tablet Comments: Continue your other usual medicines. Continue the prednisone 10 mg daily for now. Follow-up with the assisted living executive director as planned in a couple of weeks. Follow-up with your primary care sooner if problems. Discharge Date/Time: 10/20/19 13:54
== END 2019-10-20 13:54 | disposition home or self-care (01) ==
LOC: ED 11:10 → SUPCPDRO 11:10 → ED 13:54
DX: K70.30 Alcoholic cirrhosis of liver without ascites (principal); Z76.0 Encounter for issue of repeat prescription; K21.9 Gastro-esophageal reflux disease without esophagitis; I10 Essential (primary) hypertension; Z66 Do not resuscitate
CPT/HCPCS: 36415; 80053; 83690; 83735; 85025; 85610; 85730; 99283

== ENCOUNTER 2019-10-21 13:58 | Outpatient (CLI) | payer MEDICARE, MEDICAID ==
[2019-10-21 18:41] LABS: INR 1.2 (0.8-1.2); PT - PROTHROMBIN TIME 13.5 secs (9.9-12.6)
[2019-10-21 18:59] LABS: ALBUMIN 3.1 g/dL (3.2-5.5); BILIRUBIN,DIRECT 0.3 mg/dL (0.1-0.5); BILIRUBIN,TOTAL 1.1 mg/dL (0.2-1.0)
[2019-10-21 19:04] LABS: PARTIAL THROMBOPLASTIN TIME 40.6 secs (24.9-33.3)
== END 2019-10-21 23:59 | disposition home or self-care (01) ==
LOC: LAB.WCP 13:58
PROVIDERS: ATTEND Physician Assistant Medical
DX: R79.1 Abnormal coagulation profile (principal); R74.8 Abnormal levels of other serum enzymes; K70.10 Alcoholic hepatitis without ascites; D50.9 Iron deficiency anemia, unspecified; N17.9 Acute kidney failure, unspecified; N18.9 Chronic kidney disease, unspecified
CPT/HCPCS: 36415; 80076; 85610; 85730

== ENCOUNTER 2019-10-28 09:10 | Outpatient (CLI) | payer MEDICARE, MEDICAID ==
[2019-10-28 13:25] LABS: BASOPHILS # (AUTO) 0.1 10^3/uL (0.0-0.1); BASOPHILS % (AUTO) 0.9 %; EOSINOPHILS # (AUTO) 0.2 10^3/uL (0.0-0.7); EOSINOPHILS % (AUTO) 2.8 %; HGB - HEMOGLOBIN 11.3 g/dL (14.0-18.0); LYMPHOCYTES # (AUTO) 1.4 10^3/uL (1.5-3.5); LYMPHOCYTES % (AUTO) 25.7 %; MEAN CORPUSCULAR HGB CONC 31.3 g/dL (32.0-36.0); MEAN CORPUSCULAR VOLUME 99.2 fL (80.0-94.0); MEAN PLATELET VOLUME 9.3 fL (7.4-11.4); MONOCYTES # (AUTO) 0.6 10^3/uL (0.0-1.0); MONOCYTES % (AUTO) 10.6 %; NEUTROPHILS # (AUTO) 3.2 10^3/uL (1.5-6.6); NEUTROPHILS % (AUTO) 59.4 %; PLT - PLATELET COUNT 448 10^3/uL (130-450); RED BLOOD COUNT 3.64 10^6/uL (4.70-6.10); RED CELL DISTRIBUTION WIDTH 15.8 % (12.0-15.0); WHITE BLOOD COUNT 5.4 x10^3/uL (4.8-10.8)
[2019-10-28 13:28] LABS: PT - PROTHROMBIN TIME 11.8 secs (9.9-12.6)
[2019-10-28 14:30] LABS: ALBUMIN 3.3 g/dL (3.2-5.5); ALBUMIN/GLOBULIN RATIO 0.9 (1.0-2.2); CALCIUM 9.4 mg/dL (8.5-10.3); CREATININE 0.7 mg/dL (0.6-1.2); TOTAL PROTEIN 6.9 g/dL (6.7-8.2)
== END 2019-10-28 23:59 | disposition home or self-care (01) ==
LOC: LAB.WCP 09:10
PROVIDERS: ATTEND Family Medicine
DX: K70.10 Alcoholic hepatitis without ascites (principal); D50.9 Iron deficiency anemia, unspecified; N17.9 Acute kidney failure, unspecified; R74.8 Abnormal levels of other serum enzymes
CPT/HCPCS: 36415; 80053; 80076; 82248; 85025; 85610

== ENCOUNTER 2019-11-14 08:00 | Outpatient (CLI) | payer MEDICARE, MEDICAID ==
[2019-11-14 18:01] LABS: BASOPHILS % (AUTO) 0.8 %; EOSINOPHILS # (AUTO) 0.3 10^3/uL (0.0-0.7); HGB - HEMOGLOBIN 13.3 g/dL (14.0-18.0); LYMPHOCYTES # (AUTO) 1.1 10^3/uL (1.5-3.5); LYMPHOCYTES % (AUTO) 28.2 %; MEAN CORPUSCULAR HEMOGLOBIN 32.2 pg (27.0-31.0); MEAN CORPUSCULAR HGB CONC 32.6 g/dL (32.0-36.0); MEAN CORPUSCULAR VOLUME 98.8 fL (80.0-94.0); MEAN PLATELET VOLUME 10.3 fL (7.4-11.4); MONOCYTES # (AUTO) 0.5 10^3/uL (0.0-1.0); MONOCYTES % (AUTO) 13.2 %; NEUTROPHILS # (AUTO) 1.9 10^3/uL (1.5-6.6); NEUTROPHILS % (AUTO) 49.5 %; PLT - PLATELET COUNT 231 10^3/uL (130-450); RED BLOOD COUNT 4.13 10^6/uL (4.70-6.10); RED CELL DISTRIBUTION WIDTH 16.2 % (12.0-15.0); WHITE BLOOD COUNT 3.9 x10^3/uL (4.8-10.8)
[2019-11-14 18:12] LABS: PT - PROTHROMBIN TIME 11.9 secs (9.9-12.6)
[2019-11-14 18:29] LABS: ALBUMIN 3.8 g/dL (3.2-5.5); ALBUMIN/GLOBULIN RATIO 1.1 (1.0-2.2); BILIRUBIN,TOTAL 0.9 mg/dL (0.2-1.0); CALCIUM 9.3 mg/dL (8.5-10.3); CREATININE 0.7 mg/dL (0.6-1.2); TOTAL PROTEIN 7.4 g/dL (6.7-8.2)
== END 2019-11-14 23:59 | disposition home or self-care (01) ==
LOC: LAB.WCP 08:00
PROVIDERS: ATTEND Physician Assistant
DX: Z01.812 Encounter for preprocedural laboratory examination (principal); D64.9 Anemia, unspecified; K70.10 Alcoholic hepatitis without ascites; K70.2 Alcoholic fibrosis and sclerosis of liver; Z20.828 Contact with and (suspected) exposure to other viral communicable diseases
CPT/HCPCS: 36415; 80053; 82105; 83540; 84466; 85025; 85610; U0004; 81599

== ENCOUNTER 2019-12-14 13:06 | Outpatient (CLI) | payer MEDICARE, MEDICAID | END 2019-12-14 23:59 | disposition critical access hospital (66) | LOC: EMS 13:06 | PROVIDERS: ATTEND Surgery | DX: R07.9 Chest pain, unspecified (principal); R06.02 Shortness of breath; R21 Rash and other nonspecific skin eruption | CPT/HCPCS: A0425; A0427 ==

== ENCOUNTER 2019-12-14 13:25 | Emergency (ER) | payer MEDICARE, MEDICAID ==
--- NOTE | 2019-12-14 13:37 | ED Physician Documentation ---
PD HPI CHEST PAIN - Stated complaint Stated Complaint: CP - History obtained from History obtained from: Patient, EMS - History of Present Illness Timing - onset: Today (54-year-old gentleman with history of Guillain-Atwood syndrome and alcohol abuse presents with substernal chest discomfort starting at 6 AM and constant ever since. Has been at rest. It radiates to either side but not to the back or elsewhere. No shortness of breath, sweats, or nausea.) Review of Systems Constitutional: denies: Fever, Chills Ears: denies: Loss of hearing, Ear pain Nose: denies: Rhinorrhea / runny nose, Congestion Throat: denies: Sore throat Cardiac: reports: Chest pain / pressure. denies: Palpitations, Pedal edema, Calf pain Respiratory: denies: Hemoptysis PD PAST MEDICAL HISTORY - Past Medical History Cardiovascular: Hypertension, High cholesterol Respiratory: Sleep apnea, CPAP use Neuro: Headaches, Other Endocrine/Autoimmune: None, Other GI: GERD, Pancreatitis, Cirrhosis : Incontinence HEENT: None Psych: Depression, Anxiety, Panic attacks, Claustrophobia Musculoskeletal: Osteoarthritis Derm: None - Past Surgical History Past Surgical History: Yes Ortho: Hip replacement, Arthroscopic surgery HEENT: Tracheostomy - Present Medications Home Medications: Ambulatory Orders Medication Instructions Recorded Confirmed Folic Acid 1 mg PO DAILY #30 tablet 08/30/16 08/19/19 Thiamine HCl [Vitamin B-1] 100 mg PO DAILY #30 tablet 08/17/18 08/19/19 Cholecalciferol (Vitamin D3) 1,000 mcg PO DAILY 06/25/19 08/19/19 [Vitamin D3] Cyanocobalamin (Vitamin B-12) 1,000 mcg SL DAILY 06/25/19 08/19/19 [Vitamin B-12] Duloxetine HCl 30 mg PO DAILY 06/25/19 08/19/19 Multivitamin [Theragran] 1 tab PO DAILY 06/25/19 08/19/[address] [Voltaren] 75 mg PO BIDWM 08/19/19 08/19/19 Famotidine [Pepcid] 20 mg PO DAILY 08/19/19 08/19/19 Furosemide [Lasix] 40 mg PO DAILY 08/19/19 08/19/19 Lorazepam [Ativan] 1 mg PO Q6H PRN 08/19/19 08/19/19 Zolpidem [Ambien] 5 mg PO HS PRN 08/19/19 08/19/19 Gabapentin [Neurontin] 300 mg PO BID #60 capsule 08/25/19 Lactulose 30 gm PO QID #120 bottle 08/25/19 Midodrine HCl 5 mg PO TIDWM #90 tablet 08/25/19 Propranolol HCl 20 mg PO DAILY #30 tablet 08/25/19 Spironolactone [Aldactone] 25 mg PO BIDWM #60 tablet 08/25/19 Tamsulosin [Flomax] 0.4 mg PO BID #60 capsule 08/25/19 predniSONE [Deltasone] 20 mg PO DAILYWM #30 tablet 08/25/19 predniSONE [Deltasone] 10 mg PO DAILY #15 tablet 10/20/19 Fluconazole [Diflucan] 150 mg PO ONCE PRN #1 tablet 12/14/19 - Allergies Allergies/Adverse Reactions: Allergies Allergy/AdvReac Type Severity Reaction Status Date / Time lisinopril Allergy Mild Anaphylaxis Verified 10/20/19 11:15 - Social History Does the pt smoke?: No Smoking Status: Never smoker Does the pt drink ETOH?: Yes Does the pt have substance abuse?: Yes - Immunizations Immunizations are current?: Yes Immunizations: Other immun not current - POLST Patient has POLST: No POLST Status: DNR (pt clearly state to me it is DNR, Pt's mother at the bedside did not say no.) PD ED PE NORMAL - Vitals Vital signs reviewed: Yes - General General: 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, Other (Well-appearing, not in overt distress, not clinically intoxicated) - HEENT HEENT: PERRL, EOMI - Neck Neck: Supple, no meningeal sign, No bony TTP - Cardiac Cardiac: RRR, No murmur - Respiratory Respiratory: No respiratory distress, Clear bilaterally - Abdomen Abdomen: Soft, Non tender - Derm Derm: Other (Candidal type rash to the lower abdominal wall and ankles) - Extremities Extremities: No edema, No calf tenderness / cord - Neuro Neuro: 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, Normal speech Results - Vitals Vitals: Vital Signs - 24 hr 12/14/19 12/14/19 13:34 13:43 Temperature 37.6 C H Heart Rate 87 85 Respiratory 16 16 Rate Blood Pressure 147/72 H 122/72 O2 Saturation 98 99 Oxygen O2 Source Room air - EKG (time done) 1334 Rate: Rate (enter#) (88) Rhythm: NSR [place]: Normal Intervals: Normal HI QRS: Normal Ischemia: Normal ST segments Computer interpretation: Agree with computer - Labs Labs: Laboratory Tests 12/14/19 12/14/19 12/14/19 13:47 13:47 13:47 WBC 5.8 RBC 3.88 L Hgb 13.0 L Hct 37.3 L MCV 96.1 H MCH 33.5 H MCHC 34.9 RDW 15.8 H Plt Count 141 MPV 9.2 Neut # (Auto) 4.5 Lymph # (Auto) 0.7 L [place] # (Auto) 0.4 Eos # (Auto) 0.1 Baso # (Auto) 0.0 Absolute Nucleated RBC 0.00 Nucleated RBC % 0.0 Sodium 133 L Potassium 4.5 Chloride 94 L Carbon Dioxide 28 Anion Gap 11.0 BUN 14 Creatinine 0.7 Estimated GFR (MDRD) 117 Glucose 96 Calcium 9.4 Total Bilirubin 1.1 H AST 29 ALT 15 Alkaline Phosphatase 82 Troponin I High Sens < 2.3 L Total Protein 7.8 Albumin 4.4 Globulin 3.4 Albumin/Globulin Ratio 1.3 Lipase 369 H PD MEDICAL DECISION MAKING - ED course ED course: 54-year-old gentleman with history of alcoholism presents with epigastric versus chest pain. He actually points sort of along the sides of the diaphragm as the site of pain. Examination is unremarkable. Work-up shows no evidence of coronary disease/ACS, but he does have a very mild case of pancreatitis. Com plete cessation of alcohol was advised as well as a liquid diet for the next day and then ADAT. Departure - Departure Disposition: 01 Home, Self Care Clinical Impression: Atypical chest pain, Alcoholism, Candidal skin infection Alcoholic pancreatitis Qualifiers: Chronicity: acute Acute pancreatitis complication: unspecified Qualified Code(s): K85.20 - Alcohol induced acute pancreatitis without necrosis or infection Condition: Good Record reviewed to determine appropriate education?: Yes Instructions: ED Pancreatitis Prescriptions: Fluconazole [Diflucan] 150 mg PO ONCE PRN #1 tablet PRN Reason: yeast infection Comments: Work-up demonstrates no evidence of heart disease, but you do have a mild case of pancreatitis. Complete cessation of alcohol is important. For the next day do a clear liquid diet and then you can slowly advance to heavier foods as tolerated. Return if worse.
[2019-12-14 13:55] LABS: BASOPHILS % (AUTO) 0.2 %; EOSINOPHILS # (AUTO) 0.1 10^3/uL (0.0-0.7); EOSINOPHILS % (AUTO) 1.9 %; LYMPHOCYTES # (AUTO) 0.7 10^3/uL (1.5-3.5); LYMPHOCYTES % (AUTO) 12.7 %; MEAN CORPUSCULAR HEMOGLOBIN 33.5 pg (27.0-31.0); MEAN CORPUSCULAR HGB CONC 34.9 g/dL (32.0-36.0); MEAN CORPUSCULAR VOLUME 96.1 fL (80.0-94.0); MEAN PLATELET VOLUME 9.2 fL (7.4-11.4); MONOCYTES # (AUTO) 0.4 10^3/uL (0.0-1.0); NEUTROPHILS # (AUTO) 4.5 10^3/uL (1.5-6.6); NEUTROPHILS % (AUTO) 77.9 %; PLT - PLATELET COUNT 141 10^3/uL (130-450); RED BLOOD COUNT 3.88 10^6/uL (4.70-6.10); RED CELL DISTRIBUTION WIDTH 15.8 % (12.0-15.0); WHITE BLOOD COUNT 5.8 x10^3/uL (4.8-10.8)
--- NOTE | 2019-12-14 14:07 | XRAY Report ---
PROCEDURE: Chest 1 View X-Ray INDICATIONS: chest pain TECHNIQUE: One view of the chest was acquired. COMPARISON: Chest x-ray 08/20/2019. FINDINGS: Surgical changes and devices: None. Lungs and pleura: No pleural effusions or pneumothorax. Mild left basilar atelectasis. Lungs are ot herwise clear. Mediastinum: Mediastinal contours appear normal. Heart size is normal. Bones and chest wall: Multiple rib fractures are present bilaterally. No suspicious bony lesions. O verlying soft tissues appear unremarkable. IMPRESSION: No acute cardiopulmonary disease. Reviewed by: Yesi Saenz MD on 12/14/2019 2:06 PM PDT Approved by: Yesi Saenz MD on 12/14/2019 2:06 PM PDT Station ID: [id number]
[2019-12-14 14:09] LABS: ALBUMIN 4.4 g/dL (3.2-5.5); ALBUMIN/GLOBULIN RATIO 1.3 (1.0-2.2); BILIRUBIN,TOTAL 1.1 mg/dL (0.2-1.0); CALCIUM 9.4 mg/dL (8.5-10.3); CREATININE 0.7 mg/dL (0.6-1.2); TOTAL PROTEIN 7.8 g/dL (6.7-8.2)
[2019-12-14 15:08] VITALS: BP 128/74
== END 2019-12-14 14:45 | disposition home or self-care (01) ==
LOC: EDUNIT# → ED 13:25
DX: R07.89 Other chest pain (principal); B37.2 Candidiasis of skin and nail; F10.20 Alcohol dependence, uncomplicated; K85.20 Alcohol induced acute pancreatitis without necrosis or infection; Z66 Do not resuscitate
CPT/HCPCS: 36415; 71045; 80053; 83690; 84484; 85025; 93005; 99284

== ENCOUNTER 2019-12-15 13:44 | Emergency (ER) | payer MEDICARE, MEDICAID ==
[2019-12-15 14:29] LABS: BASOPHILS % (AUTO) 0.2 %; EOSINOPHILS % (AUTO) 0.1 %; HGB - HEMOGLOBIN 13.9 g/dL (14.0-18.0); LYMPHOCYTES # (AUTO) 0.9 10^3/uL (1.5-3.5); LYMPHOCYTES % (AUTO) 9.7 %; MEAN CORPUSCULAR HEMOGLOBIN 33.7 pg (27.0-31.0); MEAN CORPUSCULAR HGB CONC 35.3 g/dL (32.0-36.0); MEAN CORPUSCULAR VOLUME 95.6 fL (80.0-94.0); MEAN PLATELET VOLUME 9.1 fL (7.4-11.4); MONOCYTES # (AUTO) 0.7 10^3/uL (0.0-1.0); MONOCYTES % (AUTO) 7.6 %; NEUTROPHILS # (AUTO) 7.2 10^3/uL (1.5-6.6); NEUTROPHILS % (AUTO) 81.7 %; PLT - PLATELET COUNT 128 10^3/uL (130-450); RED BLOOD COUNT 4.12 10^6/uL (4.70-6.10); RED CELL DISTRIBUTION WIDTH 15.5 % (12.0-15.0); WHITE BLOOD COUNT 8.8 x10^3/uL (4.8-10.8)
[2019-12-15 14:42] LABS: ALBUMIN 4.7 g/dL (3.2-5.5); ALBUMIN/GLOBULIN RATIO 1.6 (1.0-2.2); BILIRUBIN,TOTAL 1.9 mg/dL (0.2-1.0); CALCIUM 9.5 mg/dL (8.5-10.3); CREATININE 0.9 mg/dL (0.6-1.2); TOTAL PROTEIN 7.7 g/dL (6.7-8.2)
[2019-12-15 14:44] LABS: BILIRUBIN,URINE NEGATIVE (NEGATIVE); GLUCOSE, URINE (UA) NEGATIVE (NEGATIVE); KETONES,URINE (UA) TRACE mg/dL (NEGATIVE); LEUKOCYTE ESTERASE, URINE SMALL (NEGATIVE); NITRITE,URINE NEGATIVE (NEGATIVE); OCCULT BLOOD,URINE NEGATIVE (NEGATIVE); PROTEIN,URINE NEGATIVE (NEGATIVE); UROBILINOGEN,URINE 0.2 (NORMAL) E.U./dL (NORMAL)
[2019-12-15 14:46] LABS: CLARITY,URINE CLEAR (CLEAR)
[2019-12-15 14:50] LABS: BACTERIA,URINE Rare /HPF (None Seen); RBC,URINE None Seen /HPF (0-5); SQUAMOUS EPITHELIAL CELL,UR RARE Squamous (<= Few)
--- NOTE | 2019-12-15 15:18 | ED Physician Documentation ---
History of Present Illness - Stated complaint Stated Complaint: FEVER, ABD PX - Chief complaint Chief Complaint: Abd Pain - History obtained from History obtained from: Patient, Family - History of Present Illness Timing: How many days ago (1) Pain level max: 8 Pain level now: 4 - Additonal information Additional information: 54-year-old male return to the emergency department with chief complaint of worsening upper abdominal pain. Patient was seen in the ED yesterday and found to have a mild lipase elevation (consistent with a mild pancreatitis. ) He was advised to abstain from alcohol. Since going home he has vomited twice and reports a fever of 103 this a.m. 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 He does admit to recent and concurrent alcohol use Review of Systems Constitutional: reports: Fever. denies: Chills Cardiac: denies: Chest pain / pressure, Palpitations Respiratory: denies: Dyspnea, Cough, Hemoptysis GI: reports: Abdominal Pain, Nausea, Vomiting. denies: Constipation, Diarrhea, Bloody / black stool Skin: denies: Rash, Lesions Musculoskeletal: denies: Neck pain, Back pain PD PAST MEDICAL HISTORY - Past Medical History Past Medical History: Yes Cardiovascular: Hypertension, High cholesterol Respiratory: Sleep apnea, CPAP use Neuro: Headaches, Other Endocrine/Autoimmune: None, Other GI: GERD, Pancreatitis, Cirrhosis : Incontinence HEENT: None Psych: Depression, Anxiety, Panic attacks, Claustrophobia Musculoskeletal: Osteoarthritis Derm: None - Past Surgical History Past Surgical History: Yes Ortho: Hip replacement, Arthroscopic surgery HEENT: Tracheostomy - Present Medications Home Medications: Ambulatory Orders Medication Instructions Recorded Confirmed Folic Acid 1 mg PO DAILY #30 tablet 08/30/16 08/19/19 Thiamine HCl [Vitamin B-1] 100 mg PO DAILY #30 tablet 08/17/18 08/19/19 Cholecalciferol (Vitamin D3) 1,000 mcg PO DAILY 06/25/19 08/19/19 [Vitamin D3] Cyanocobalamin (Vitamin B-12) 1,000 mcg SL DAILY 06/25/19 08/19/19 [Vitamin B-12] Duloxetine HCl 30 mg PO DAILY 06/25/19 08/19/19 Multivitamin [Theragran] 1 tab PO DAILY 06/25/19 08/19/[address] [Voltaren] 75 mg PO BIDWM 08/19/19 08/19/19 Famotidine [Pepcid] 20 mg PO DAILY 08/19/19 08/19/19 Furosemide [Lasix] 40 mg PO DAILY 08/19/19 08/19/19 Lorazepam [Ativan] 1 mg PO Q6H PRN 08/19/19 08/19/19 Zolpidem [Ambien] 5 mg PO HS PRN 08/19/19 08/19/19 Gabapentin [Neurontin] 300 mg PO BID #60 capsule 08/25/19 Lactulose 30 gm PO QID #120 bottle 08/25/19 Midodrine HCl 5 mg PO TIDWM #90 tablet 08/25/19 Propranolol HCl 20 mg PO DAILY #30 tablet 08/25/19 Spironolactone [Aldactone] 25 mg PO BIDWM #60 tablet 08/25/19 Tamsulosin [Flomax] 0.4 mg PO BID #60 capsule 08/25/19 predniSONE [Deltasone] 20 mg PO DAILYWM #30 tablet 08/25/19 predniSONE [Deltasone] 10 mg PO DAILY #15 tablet 10/20/19 Fluconazole [Diflucan] 150 mg PO ONCE PRN #1 tablet 12/14/19 - Allergies Allergies/Adverse Reactions: Allergies Allergy/AdvReac Type Severity Reaction Status Date / Time lisinopril Allergy Mild Anaphylaxis Verified 12/15/19 13:52 - Social History Does the pt smoke?: No Smoking Status: Never smoker Does the pt drink ETOH?: Yes Does the pt have substance abuse?: Yes - Immunizations Immunizations are current?: Yes Immunizations: Other immun not current - POLST Patient has POLST: No POLST Status: DNR (pt clearly state to me it is DNR, Pt's mother at the bedside did not say no.) PD ED PE NORMAL - General General: 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, No acute distress, Well developed/nourished - Cardiac Cardiac: RRR, No murmur - Respiratory Respiratory: No respiratory distress - Abdomen Abdomen: Normal bowel sounds, Soft, Other (Non-focal upper abdominal pain without rebound or guarding. Negative Clemons's.) Results - Vitals Vitals: Vital Signs - 24 hr 12/15/19 12/15/19 12/15/19 13:48 13:52 16:47 Temperature 36.1 C L 36.1 C L 37.2 C Heart Rate 102 H 102 H 83 Respiratory 16 16 16 Rate Blood Pressure 135/90 H 135/90 H 124/90 H O2 Saturation 99 99 97 Oxygen O2 Source Room air - Labs Labs: Laboratory Tests 12/15/19 12/15/19 12/15/19 14:23 14:23 14:38 WBC 8.8 RBC 4.12 L Hgb 13.9 L Hct 39.4 L MCV 95.6 H MCH 33.7 H MCHC 35.3 RDW 15.5 H Plt Count 128 L MPV 9.1 Neut # (Auto) 7.2 H Lymph # (Auto) 0.9 L Ada # (Auto) 0.7 Eos # (Auto) 0.0 Baso # (Auto) 0.0 Absolute Nucleated RBC 0.00 Nucleated RBC % 0.0 Sodium 132 L Potassium 4.3 Chloride 93 L Carbon Dioxide 28 Anion Gap 11.0 BUN 14 Creatinine 0.9 Estimated GFR (MDRD) 88 L Glucose 129 H Calcium 9.5 Total Bilirubin 1.9 H AST 29 ALT 14 Alkaline Phosphatase 82 Total Protein 7.7 Albumin 4.7 Globulin 3.0 Albumin/Globulin Ratio 1.6 Lipase 261 H Urine Color DARK YELLOW Urine Clarity CLEAR Urine pH 6.0 Ur Specific Sandy 1.010 Urine Protein NEGATIVE Urine Glucose (UA) NEGATIVE Urine Ketones TRACE Urine Occult Blood NEGATIVE Urine Nitrite NEGATIVE Urine Bilirubin NEGATIVE Urine Urobilinogen 0.2 (NORMAL) Ur Leukocyte Esterase SMALL H Urine RBC None Seen Urine WBC 6-10 H Ur Squamous Epith Cells RARE Squamous Urine Bacteria Rare Ur Microscopic Review INDICATED Urine Culture Comments INDICATED - Rads (name of study) abd ultrasound Radiology: Final report received (Trace perihepatic fluid. Hepatic steatosis. Stones versus sludge in the gallbladder. No wall thickening. Biliary duct measures 7 mm or less in diameter) PD MEDICAL DECISION MAKING - ED course Complexity details: reviewed old records, reviewed results, re-evaluated patient, considered differential, d/w patient, d/w family, d/w industrial methods consultant (Rimma) ED course: 54-year-old gentleman returns to the emergency department with chief complaint of fever, worsening upper abdominal pain and vomiting. Seen for similar yesterday pain is elevation of 369. - Today on review of his labs his lipase has decreased to 261. However more worrisome is that his total bili has increased to 1.9. Given the location of the pain and the persistence of vomiting I will proceed with an abdominal ultrasound to search for biliary obstruction. Reassuringly here he has no fever or leukocytosis. His hemogram is stable. His blood cultures are pending but he is hemodynamically stable. - I discussed the ultrasound findings with Dr. Shanks on-call for surgery. Though there is no biliary duct dilation she suggest consultation with GI to consider an ERCP. We are getting in contact with Maurice - I have spoken on the phone with GI physician Dr. Faye with [facility] specialists. We discussed the patient's labs in full and thoroughly reviewed the ultrasound imaging. I also discussed my clinical exam. He feels that at this stage patient does not require an ERCP but should have close follow-up with GI as an outpatient. Therefore patient will be advised to call for follow-up when discharged. Patient is clinically stable for discharge home as long as he remains hemodynamically stable and is tolerating clear liquids. - I spoke at length with patient and his mom regarding his alcoholism, the lab and ultrasound findings and possible need for cholecystectomy versus ERCP in the future. At this time patient's pain is controlled and he has tolerated clear liquids in the emergency department. He reports that he is going to schedule a follow-up appointment with his Dr. Asif to discuss alcohol cessation.I discussed that he may return at anytime for worsening pain or return if fevers. - Consults Consults: Consulted (name) (Dr. Faye ([facility])) Departure - Departure Disposition: 01 Home, Self Care Clinical Impression: Gallstones, Alcohol abuse, Total bilirubin, elevated Condition: Stable Instructions: Gallstones Dc Follow-Up: VINCENZO ASIF MD [Primary Care Provider] - [facility] [Provider Group] - Within 1 week Comments: Stew please schedule a very close follow-up appointment with Dr. Asif. It is important that you speak with him about a plan or way to stop drinking. This can sometimes be done as an outpatient. It looks like you have a lot of sludge in your gallbladder that may be causing your pain. I would like you to call [facility] GI specialist tomorrow to schedule follow-up . In the long-term you may need to have your gallbladder removed If you develop suddenly severe pain, cannot tolerate any clear liquids have uncontrolled vomiting or return if fevers return to the emergency department For the next 2 to 3 days drink clear liquids only. After that you may advance your diet as discussed Bananas, Rice, Applesauce [place] (BRAT)
--- NOTE | 2019-12-15 16:24 | Ultrasound Report ---
PROCEDURE: Abdomen Limited INDICATIONS: Worsening abdominal pain; elevated bili TECHNIQUE: Real-time scanning was performed of the abdominal and retroperitoneal organs, with image documentatio n. COMPARISON: None. FINDINGS: Liver: Liver is at the upper limits of normal in size. It is diffusely increased echogenicity. Trace free fluid is present. Gallbladder: Layering dependent sludge versus small stones are noted. Wall thickness is within normal limits measuring 9 mm. Biliary ducts: Intrahepatic bile ducts are non-dilated. Extrahepatic bile duct caliber measures 7 m m. Normal is 6-7 mm or less in diameter, or 10 mm or less post-cholecystectomy. Pancreas: Visualized portions of the pancreas are sonographically normal. Kidneys: Kidneys are normal in size and echotexture. Right kidney measures 11.3 cm long. No hydron ephrosis or nephrolithiasis. No solid masses. IVC: Intrahepatic inferior vena cava is patent. IMPRESSION: 1. Trace perihepatic fluid. 2. Hepatic steatosis. 3. Stones versus sludge in the gallbladder. No wall thickening. Reviewed by: Maria T Alcala MD on 12/15/2019 4:22 PM PDT Approved by: Maria T Alcala MD on 12/15/2019 4:22 PM PDT Station ID: [id number]
[2019-12-15] MEDS ORDERED: SODIUM CHLORIDE 0.9% 1,000 ML IV STA (17:48)
[2019-12-15] MEDS ORDERED: HYDROmorphone 1 MG/ML CARPUJECT IVP STA (17:50)
[2019-12-15 18:46] VITALS: BP 139/92
== END 2019-12-15 19:09 | disposition home or self-care (01) ==
LOC: ED 13:44
DX: K80.20 Calculus of gallbladder without cholecystitis without obstruction (principal); F10.20 Alcohol dependence, uncomplicated; R79.89 Other specified abnormal findings of blood chemistry; G61.0 Guillain-Barre syndrome; I10 Essential (primary) hypertension; Z66 Do not resuscitate
CPT/HCPCS: 36415; 76705; 80053; 81001; 83690; 85025; 87040; 87086; 96361; 96374; 99283; 99284; J1170; 81003

== ENCOUNTER 2019-12-21 10:18 | Outpatient (CLI) | payer MEDICARE, MEDICAID ==
[2019-12-21 12:32] LABS: BASOPHILS % (AUTO) 0.5 %; EOSINOPHILS % (AUTO) 0.3 %; HGB - HEMOGLOBIN 13.7 g/dL (14.0-18.0); LYMPHOCYTES % (AUTO) 7.8 %; MEAN CORPUSCULAR HEMOGLOBIN 33.8 pg (27.0-31.0); MEAN CORPUSCULAR HGB CONC 34.9 g/dL (32.0-36.0); MEAN CORPUSCULAR VOLUME 96.8 fL (80.0-94.0); MEAN PLATELET VOLUME 10.2 fL (7.4-11.4); MONOCYTES % (AUTO) 16.5 %; PLT - PLATELET COUNT 279 10^3/uL (130-450); RED BLOOD COUNT 4.05 10^6/uL (4.70-6.10); RED CELL DISTRIBUTION WIDTH 14.9 % (12.0-15.0); WHITE BLOOD COUNT 11.6 x10^3/uL (4.8-10.8)
[2019-12-21 13:01] LABS: ABNORMAL LYMPHS % (MANUAL) 0 %
[2019-12-21 13:09] LABS: ALBUMIN 3.8 g/dL (3.2-5.5); ALBUMIN/GLOBULIN RATIO 0.9 (1.0-2.2); BILIRUBIN,TOTAL 0.9 mg/dL (0.2-1.0); CALCIUM 9.3 mg/dL (8.5-10.3); CREATININE 0.8 mg/dL (0.6-1.2); TOTAL PROTEIN 7.9 g/dL (6.7-8.2)
[2019-12-21 13:31] LABS: BAND NEUTROPHILS % (MANUAL) 20 %; DIFFERENTIAL COMMENT MANUAL DIFFERENTIAL; LYMPHOCYTES # (MANUAL) 0.7 10^3/uL (1.5-3.5); LYMPHOCYTES % (MANUAL) 6 %; MONOCYTES # (MANUAL) 1.3 10^3/uL (0.0-1.0); PLATELET ESTIMATE, MANUAL NORMAL (130-450,000) (NORMAL); PLATELET MORPHOLOGY NORMAL APPEARANCE (NORMAL); RBC MORPHOLOGY (MULTIPLE) NORMAL APPEARANCE (NORMAL)
== END 2019-12-21 23:59 | disposition home or self-care (01) ==
LOC: LAB.WCP 10:18
PROVIDERS: ATTEND Family Medicine
DX: K72.90 Hepatic failure, unspecified without coma (principal); K85.90 Acute pancreatitis without necrosis or infection, unspecified
CPT/HCPCS: 36415; 80053; 82150; 83690; 85025

== ENCOUNTER 2019-12-27 17:00 | Outpatient (CLI) | payer MEDICARE, MEDICAID | END 2019-12-27 23:59 | disposition home or self-care (01) | LOC: LAB.WCP 17:00 | PROVIDERS: ATTEND Family Medicine | DX: Z20.828 Contact with and (suspected) exposure to other viral communicable diseases (principal); B97.89 Other viral agents as the cause of diseases classified elsewhere ==

== ENCOUNTER 2020-01-17 01:02 | Outpatient (CLI) | payer MEDICARE, MEDICAID | END 2020-01-17 01:03 | disposition critical access hospital (66) | LOC: EMS 01:02 | PROVIDERS: ATTEND Surgery | DX: R10.9 Unspecified abdominal pain (principal); R47.81 Slurred speech; R26.81 Unsteadiness on feet; Z72.89 Other problems related to lifestyle | CPT/HCPCS: A0425; A0429 ==

== ENCOUNTER 2020-01-17 01:19 | Inpatient (IN) | payer MEDICARE, MEDICAID ==
[2020-01-17] MEDS ORDERED: FOLIC ACID INJ 1 MG, THIAMINE INJ 100 MG, MAGNESIUM SULFATE 2 GM, MULTIVITAMIN 10 ML in... IV STA ×5 (02:14)
[2020-01-17] MEDS ORDERED: FOLIC ACID 5 MG/1 ML 10ML MDV ONE (02:29)
[2020-01-17] MEDS ORDERED: THIAMINE 100 MG/1 ML 2 ML MDV ONE (02:29)
[2020-01-17 02:47] LABS: BASOPHILS # (AUTO) 0.1 10^3/uL (0.0-0.1); BASOPHILS % (AUTO) 1.1 %; EOSINOPHILS # (AUTO) 0.1 10^3/uL (0.0-0.7); EOSINOPHILS % (AUTO) 2.8 %; HGB - HEMOGLOBIN 12.6 g/dL (14.0-18.0); LYMPHOCYTES # (AUTO) 2.3 10^3/uL (1.5-3.5); LYMPHOCYTES % (AUTO) 49.2 %; MEAN CORPUSCULAR HEMOGLOBIN 34.1 pg (27.0-31.0); MEAN CORPUSCULAR HGB CONC 35.5 g/dL (32.0-36.0); MEAN CORPUSCULAR VOLUME 96.2 fL (80.0-94.0); MEAN PLATELET VOLUME 8.8 fL (7.4-11.4); MONOCYTES # (AUTO) 0.8 10^3/uL (0.0-1.0); MONOCYTES % (AUTO) 16.9 %; NEUTROPHILS # (AUTO) 1.4 10^3/uL (1.5-6.6); NEUTROPHILS % (AUTO) 29.6 %; PLT - PLATELET COUNT 345 10^3/uL (130-450); RED BLOOD COUNT 3.69 10^6/uL (4.70-6.10); RED CELL DISTRIBUTION WIDTH 15.4 % (12.0-15.0); WHITE BLOOD COUNT 4.6 x10^3/uL (4.8-10.8)
[2020-01-17 02:53] LABS: PT - PROTHROMBIN TIME 11.9 secs (9.9-12.6)
[2020-01-17 03:00] LABS: ALBUMIN 3.5 g/dL (3.2-5.5); ALBUMIN/GLOBULIN RATIO 0.9 (1.0-2.2); BILIRUBIN,TOTAL 0.3 mg/dL (0.2-1.0); CALCIUM 8.8 mg/dL (8.5-10.3); CREATININE 0.7 mg/dL (0.6-1.2); TOTAL PROTEIN 7.3 g/dL (6.7-8.2)
--- NOTE | 2020-01-17 03:37 | ED Physician Documentation ---
PD HPI ABD PAIN - Stated complaint Stated Complaint: ABD PX/ ETOH - Chief complaint Chief Complaint: Abd Pain - History obtained from History obtained from: Patient, EMS - History of Present Illness Timing - onset: Today Timing - duration: Hours Timing - details: Gradual onset, Still present Quality: Sharp, Pain Location: Suprapubic, LLQ Improved by: Laying still Worsened by: Moving, Position, Palpation Associated symptoms: Nausea Similar symptoms before: No diagnosis Recently seen: Admitted - Additional information Additional information: 54-year-old alcoholic male with a history of Guyon Atwood syndrome has had difficulty controlling his alcohol consumption and today he drank about 1/5 of vodka. He does state that he was in bed resting when he began to develop pain in his lower abdomen. The pain became intolerable and he called the ambulance. He has come to the emergency department and fell asleep. He was administered a banana bag and at the time of my evaluation he continues to have some suprapubic pain but it is not intolerable. He has not had any vomiting with this. He does not have epigastric pain with this and is not been sick otherwise. He has had a recent hospitalization at [facility] 1 week ago for pancreatic pseudocyst and pancreatitis he denies current symptoms associated with pancreati tis. Review of Systems Constitutional: denies: Fever Eyes: denies: Decreased vision Ears: denies: Ear pain Nose: denies: Congestion Throat: denies: Sore throat Cardiac: denies: Chest pain / pressure, Palpitations Respiratory: denies: Dyspnea, Cough GI: reports: Abdominal Pain. denies: Nausea, Vomiting : denies: Dysuria, Frequency Skin: denies: Rash Musculoskeletal: denies: Neck pain, Back pain, Extremity pain Neurologic: denies: Generalized weakness, Focal weakness, Numbness PD PAST MEDICAL HISTORY - Past Medical History Cardiovascular: Hypertension, High cholesterol Respiratory: Sleep apnea, CPAP use Neuro: Headaches, Other Endocrine/Autoimmune: None, Other GI: GERD, Pancreatitis, Cirrhosis : Incontinence HEENT: None Psych: Depression, Anxiety, Panic attacks, Claustrophobia Musculoskeletal: Osteoarthritis Derm: None - Past Surgical History Past Surgical History: Yes Ortho: Hip replacement, Arthroscopic surgery HEENT: Tracheostomy - Present Medications Home Medications: Ambulatory Orders Medication Instructions Recorded Confirmed Folic Acid 1 mg PO DAILY #30 tablet 03/25/17 03/13/20 Thiamine HCl [Vitamin B-1] 100 mg PO DAILY #30 tablet 08/17/18 08/19/19 Cholecalciferol (Vitamin D3) 1,000 mcg PO DAILY 06/25/19 08/19/19 [Vitamin D3] Cyanocobalamin (Vitamin B-12) 1,000 mcg SL DAILY 06/25/19 08/19/19 [Vitamin B-12] Duloxetine HCl 30 mg PO DAILY 06/25/19 08/19/19 Multivitamin [Theragran] 1 tab PO DAILY 06/25/19 08/19/[address] [Voltaren] 75 mg PO BIDWM 08/19/19 08/19/19 Famotidine [Pepcid] 20 mg PO DAILY 08/19/19 08/19/19 Furosemide [Lasix] 40 mg PO DAILY 08/19/19 08/19/19 Lorazepam [Ativan] 1 mg PO Q6H PRN 08/19/19 08/19/19 Zolpidem [Ambien] 5 mg PO HS PRN 08/19/19 08/19/19 Gabapentin [Neurontin] 300 mg PO BID #60 capsule 08/25/19 Lactulose 30 gm PO QID #120 bottle 08/25/19 Midodrine HCl 5 mg PO TIDWM #90 tablet 08/25/19 Propranolol HCl 20 mg PO DAILY #30 tablet 08/25/19 Spironolactone [Aldactone] 25 mg PO BIDWM #60 tablet 08/25/19 Tamsulosin [Flomax] 0.4 mg PO BID #60 capsule 08/25/19 predniSONE [Deltasone] 20 mg PO DAILYWM #30 tablet 08/25/19 predniSONE [Deltasone] 10 mg PO DAILY #15 tablet 10/20/19 Fluconazole [Diflucan] 150 mg PO ONCE PRN #1 tablet 12/14/19 - Allergies Allergies/Adverse Reactions: Allergies Allergy/AdvReac Type Severity Reaction Status Date / Time lisinopril Allergy Mild Anaphylaxis Verified 12/15/19 13:52 - Social History Does the pt smoke?: No Smoking Status: Never smoker Does the pt drink ETOH?: Yes Does the pt have substance abuse?: Yes - Immunizations Immunizations are current?: Yes Immunizations: Other immun not current - POLST Patient has POLST: No POLST Status: DNR (pt clearly state to me it is DNR, Pt's mother at the bedside did not say no.) PD ED PE NORMAL - Vitals Vital signs reviewed: Yes (Hypertensive) - General General: No acute distress, Well developed/nourished - HEENT HEENT: Atraumatic, PERRL, EOMI - Neck Neck: Supple, no meningeal sign, No bony TTP - Cardiac Cardiac: RRR, No murmur - Respiratory Respiratory: No respiratory distress, Clear bilaterally - Abdomen Abdomen: Soft, Other (Mild suprapubic tenderness with what appears to be a full bladder.) - Back Back: No CVA TTP, No spinal TTP - Derm Derm: Normal color, Warm and dry, No rash - Extremities Extremities: No deformity, No edema - Neuro Neuro: 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, enrolled nurse 2-12 intact, No motor deficit, No sensory deficit, Normal speech Eye Opening: Spontaneous Motor: Obeys Commands Verbal: Oriented GCS Score: 15 - Psych Psych: Normal mood, Normal affect Results - Vitals Vitals: Vital Signs - 24 hr 01/17/20 01/17/20 01/17/20 01:27 02:09 04:00 Temperature 37.2 C Heart Rate 86 88 81 Respiratory 14 18 17 Rate Blood Pressure 109/97 H 96/75 95/64 O2 Saturation 97 95 92 01/17/20 06:30 Temperature Heart Rate 85 Respiratory 13 Rate Blood Pressure 104/84 H O2 Saturation 98 Oxygen O2 Source Room air - Labs Labs: Laboratory Tests 01/17/20 01/17/20 01/17/20 02:40 02:40 02:40 WBC 4.6 L RBC 3.69 L Hgb 12.6 L Hct 35.5 L MCV 96.2 H MCH 34.1 H MCHC 35.5 RDW 15.4 H Plt Count 345 MPV 8.8 Neut # (Auto) 1.4 L Lymph # (Auto) 2.3 Gregg # (Auto) 0.8 Eos # (Auto) 0.1 Baso # (Auto) 0.1 Absolute Nucleated RBC 0.00 Nucleated RBC % 0.0 PT 11.9 INR 1.0 Sodium 137 Potassium 3.7 Chloride 98 L Carbon Dioxide 24 Anion Gap 15.0 H BUN 8 Creatinine 0.7 Estimated GFR (MDRD) 117 Glucose 107 H Calcium 8.8 Total Bilirubin 0.3 AST 26 ALT 13 Alkaline Phosphatase 89 Total Protein 7.3 Albumin 3.5 Globulin 3.8 Albumin/Globulin Ratio 0.9 L Lipase 22 Ethyl Alcohol 322.3 Procedures - Bedside sono Bedside sono by EMP: With use bedside ultrasound the bladder is imaged it does appear full and is mildly sonographically tender. PD MEDICAL DECISION MAKING - ED course Complexity details: reviewed old records, reviewed results, re-evaluated patient, considered differential, d/w patient ED course: 54-year-old male with severe alcoholism presents to the emergency department acutely intoxicated with complaint of lower abdomen pain. He is administered a banana bag here in the emergency department and sleeps for several hours. On awakening he still has some mild pain associated with this and tenderness on exam. A CT of the abdomen and pelvis is ordered and at shift change care of the patient is turned over to Dr. Alexander. Departure - Departure Clinical Impression: Alcohol intoxication Qualifiers: Complication of substance-induced condition: uncomplicated Qualified Code(s): F10.920 - Alcohol use, unspecified with intoxication, uncomplicated
[2020-01-17] MEDS ORDERED: IOVERSOL 320 100 ML VIAL IVP ONE ×2 (07:01→09:10)
[2020-01-17 09:22] LABS: BILIRUBIN,URINE NEGATIVE (NEGATIVE); GLUCOSE, URINE (UA) NEGATIVE (NEGATIVE); KETONES,URINE (UA) NEGATIVE (NEGATIVE); LEUKOCYTE ESTERASE, URINE NEGATIVE (NEGATIVE); NITRITE,URINE NEGATIVE (NEGATIVE); OCCULT BLOOD,URINE NEGATIVE (NEGATIVE); PH,URINE 7.5 PH (5.0-7.5); PROTEIN,URINE NEGATIVE (NEGATIVE); UROBILINOGEN,URINE 0.2 (NORMAL) E.U./dL (NORMAL)
[2020-01-17] MEDS ORDERED: PANTOPRAZOLE 40 MG VIAL IVP STA (09:23)
[2020-01-17] MEDS ORDERED: AMPICILLIN/SULBACTAM 1.5 GM in SODIUM CHLORIDE 0.9% MINIBAG 100 ML IV STA (09:24)
--- NOTE | 2020-01-17 09:25 | CT Report ---
PROCEDURE: Abdomen/Pelvis W INDICATIONS: LLQ pain CONTRAST: IV CONTRAST: Optiray 320 ml: 100 PO CONTRAST: *NO PO CONTRAST TECHNIQUE: After the administration of oral and intravenous contrast, 5 mm thick sections acquired from the diap hragms to the symphysis. 5 mm thick coronal and sagittal reformats were acquired. For radiation dos e reduction, the following was used: automated exposure control, adjustment of mA and/or kV accordin g to patient size. COMPARISON: CT abdomen pelvis 06/14/2019. FINDINGS: Image quality: There is metallic streak artifact in the pelvis secondary to patient's right hip prost hesis. ABDOMEN: Lung bases: There is mild dependent atelectasis. Heart size is normal. Solid organs: Evaluation of the liver demonstrates no focal hepatic lesions. The gallbladder is part ially distended with dependent calcified gallstones in the fundus. No definite gallbladder wall thick ening. Biliary system is non dilated. Pancreas enhances normally. No adrenal nodules. Spleen is n ormal in size. Kidneys demonstrate no hydronephrosis. Peritoneum and bowel: There is gastric wall thickening, including concentric wall thickening in the antrum. In addition, within the posterior wall of the stomach, there is a loculated peripherally enha ncing lobulated fluid collection measuring up to approximately 2.6 cm in thickness and measuring up t o approximately 8.3 cm in transverse extent by approximately 8.4 cm in craniocaudal extent. There is a small focal area of hypoenhancement anteriorly in the collection which may represent a fistulous co mmunication from a perforated ulcer on series 7 image 19. Small and large loops demonstrate normal wa ll thickness and caliber. There is colonic diverticulosis without acute diverticulitis. There is mini mal free fluid within the upper abdomen. No intraperitoneal free air. Nodes and vessels: No retroperitoneal or mesenteric adenopathy by size criteria. Aorta and inferior vena cava are normal in size. Miscellaneous: No ventral hernias. PELVIS: Genitourinary: Bladder wall thickness is normal. Miscellaneous: No inguinal hernias or adenopathy. Bones: There is a right hip prosthesis with extensive metallic streak artifact limiting evaluation. Periarticular calcifications medially are compatible with heterotopic ossification. There is periarti cular edema and a joint effusion. No suspicious bony lesions. No vertebral body compression fracture s. IMPRESSION: 1. Gastric wall thickening within a loculated fluid collection in the posterior wall compatible with an intramural abscess. Findings likely represent sequelae of a contained perforation of a gastric ulc er. An underlying neoplasm is less likely but not fully excluded. Further evaluation is recommended w ith endoscopy. Findings discussed Dr. Alexander on 01/17/2020 at 9:10 AM. 2. Minimal free fluid within the upper abdomen without intraperitoneal free air. 3. Colonic diverticulosis without acute diverticulitis. 4. Cholelithiasis. Reviewed by: Joselo Rodas MD on 01/17/2020 9:24 AM PDT Approved by: Joselo Rodas MD on 01/17/2020 9:24 AM PDT Station ID: [id number]
[2020-01-17 09:27] LABS: CLARITY,URINE CLEAR (CLEAR)
--- NOTE | 2020-01-17 09:47 | ED Physician Documentation ---
ED Addendum - Addendum Addendum: 01/17/20 09:[address] scan showed a posterior gastric wall abscess consistent with a perforated ulcer and intramural abscess. There is no signs of free air. The patient is stable hemodynamically and labs. Consult with general surgery would be admission to hospitalist service with endoscopy and endoscopic approach and treatment.
[2020-01-17] MEDS ORDERED: SODIUM CHLORIDE FLUSH 0.9% 10 ML SYRINGE IVP PRN (10:47)
[2020-01-17] MEDS ORDERED: AMPICILLIN/SULBACTAM 1.5 GM in SODIUM CHLORIDE 0.9% MINIBAG 100 ML IV SCH (11:00)
[2020-01-17] MEDS ORDERED: MULTIVITAMIN 10 ML, THIAMINE INJ 100 MG, FOLIC ACID INJ 1 MG in SODIUM CHLORIDE 0.9% 1,... IV SCH (11:00)
[2020-01-17] MEDS ORDERED: ONDANSETRON 4 MG/2 ML VIAL IVP PRN ×2 (12:58→13:01)
[2020-01-17] MEDS ORDERED: METOCLOPRAMIDE 10 MG/2 ML VIAL IVP SCH (13:00)
[2020-01-17] MEDS ORDERED: SODIUM CHLORIDE 0.9% 1,000 ML IV SCH ×2 (13:00→17:00)
[2020-01-17] MEDS: MORPHINE 2 MG/ML CARPUJECT IVP PRN ×2 (13:19→15:58)
--- NOTE | 2020-01-17 15:16 | HISTORY & PHYSICAL EXAMINATION ---
Chief Complaint - Chief Complaint Chief Complaint: Abdominal pain nausea vomiting Abdominal Pain HPI - Admitted From Admitted from: ED - History Obtained From Records Reviewed: RN notes reviewed History obtained from: Patient Exam limitations: No limitations - History of Present Illness Pain/Problem Location Description: Epigastric pain with associated nausea and vomiting Severity at the worst: Moderate Pain Quality: Dull, Aching Timing: Constant Associated symptoms: Nausea, Vomiting HPI Comment/Other: 54-year-old male with extensive past history of alcohol use and abuse who was seen through [facility] emergency department. Dr. Alexander saw the patient through the emergency room with complaints of nausea vomiting and epigastric abdominal pain. Surgery was called for consultation after CT imaging was noted for an intramural posterior gastric fluid collection concerning for abscess. At the time of my evaluation and upon discussing the patient's past surgical history he mentioned that last week he had undergone upper endoscopy for what was reported as a "cyst". Patient reported that consideration was made to drain this area, however this was deferred and patient was planned for follow up. Kindly see addendum for extensive discussion as it relates to this with covering maintenance representative at [facility] in [facility]. PMH/PSH - Past Medical History Cardiovascular: positive: Hypertension, High cholesterol Respiratory: positive: Sleep apnea, CPAP use Neuro: positive: Headaches, Other Endocrine/Autoimmune: positive: None, Other GI: positive: GERD, Pancreatitis, Cirrhosis : positive: Incontinence HEENT: positive: None Psych: positive: Depression, Anxiety, Panic attacks, Claustrophobia Musculoskeletal: positive: Osteoarthritis Derm: positive: None MRSA Hx?: No - Past Surgical History Ortho: positive: Hip replacement, Arthroscopic surgery HEENT: positive: Tracheostomy Social & Family Hx - Social History Does the pt smoke?: No Smoking Status: Never smoker Does the pt drink ETOH?: Yes Does the pt have substance abuse?: Yes - POLST Patient has POLST: No POLST Status: DNR (pt clearly state to me it is DNR, Pt's mother at the bedside did not say no.) Meds/Allgy - Home Medications Home Medications: Ambulatory Orders Medication Instructions Recorded Confirmed Folic Acid 1 mg PO DAILY #30 tablet 08/30/16 08/19/19 Thiamine HCl [Vitamin B-1] 100 mg PO DAILY #30 tablet 08/17/18 08/19/19 Cholecalciferol (Vitamin D3) 1,000 mcg PO DAILY 06/25/19 08/19/19 [Vitamin D3] Cyanocobalamin (Vitamin B-12) 1,000 mcg SL DAILY 06/25/19 08/19/19 [Vitamin B-12] Duloxetine HCl 30 mg PO DAILY 06/25/19 08/19/19 Multivitamin [Theragran] 1 tab PO DAILY 06/25/19 08/19/[address] [Voltaren] 75 mg PO BIDWM 08/19/19 08/19/19 Famotidine [Pepcid] 20 mg PO DAILY 08/19/19 08/19/19 Furosemide [Lasix] 40 mg PO DAILY 08/19/19 08/19/19 Lorazepam [Ativan] 1 mg PO Q6H PRN 08/19/19 08/19/19 Gabapentin [Neurontin] 300 mg PO BID #60 capsule 08/25/19 Lactulose 30 gm PO QID #120 bottle 08/25/19 Midodrine HCl 5 mg PO TIDWM #90 tablet 08/25/19 Propranolol HCl 20 mg PO DAILY #30 tablet 08/25/19 Spironolactone [Aldactone] 25 mg PO BIDWM #60 tablet 08/25/19 Tamsulosin [Flomax] 0.4 mg PO BID #60 capsule 08/25/19 Fluconazole [Diflucan] 150 mg PO ONCE PRN #1 tablet 12/14/19 - Allergies Allergies/Adverse Reactions: Allergies Allergy/AdvReac Type Severity Reaction Status Date / Time lisinopril Allergy Mild Anaphylaxis Verified 12/15/19 13:52 Review of Systems - Constitutional Constitutional: reports: Fatigue, Weakness, Poor appetite - Ears, Nose & Throat Ears, Nose & Throat: denies: Nosebleeds - Cardiovascular Cariovascular: denies: Chest pain, Lightheadedness - Respiratory Respiratory: denies: Cough, Sputum production, Wheezing, Hemoptysis - Gastrointestinal Gastrointestinal: reports: Abdominal pain, Nausea, Vomiting, Other (Patient notable for upper endoscopy within the last week.). denies: Black stools, Bloody stools Exam - Vital Signs Vital Signs: Vital Signs x48h Temp Pulse Pulse Resp BP BP Pulse Ox 01/17/20 14:19 37.6 C H 73 16 99 01/17/20 13:00 37.6 C H 73 16 125/89 H 98 08/11/20 11:00 75 12 148/119 H 96 01/17/20 09:14 77 14 126/89 H 98 - Physical Exam General Appearance: positive: No acute distress, Alert Eyes Bilateral: positive: Normal inspection, PERRL, EOMI, Conjunctivae nml, No scleral icterus ENT: positive: ENT inspection nml Neck: positive: Nml inspection Respiratory: positive: Chest non-tender, No respiratory distress, Breath sounds nml. negative: Wheezes, Rales, Rhonchi Cardiovascular: positive: Regular rate & rhythm Abdomen: positive: No distention, Tenderness, Other (Patient with no tenderness to light palpation. Nondistended. No fluid shift. No appreciable ascites. No hepatomegaly appreciated. No rebound. No guarding. No jaundice.). negative: Guarding, Rebound Results - Lab Results Fish Bones: 01/17/20 02:40 01/17/20 02:40 Other Lab Results: Lab Results x24hrs 01/17/20 01/17/20 01/17/20 Range/Units 09:10 02:40 02:40 WBC (4.8-10.8) x10^3/uL RBC (4.70-6.10) 10^6/uL Hgb (14.0-18.0) g/dL Hct (42.0-52.0) % MCV (80.0-94.0) fL MCH (27.0-31.0) pg MCHC (32.0-36.0) g/dL RDW (12.0-15.0) % Plt Count (130-450) 10^3/uL MPV (7.4-11.4) fL Neut # (Auto) (1.5-6.6) 10^3/uL Lymph # (Auto) (1.5-3.5) 10^3/uL Sterling # (Auto) (0.0-1.0) 10^3/uL Eos # (Auto) (0.0-0.7) 10^3/uL Baso # (Auto) (0.0-0.1) 10^3/uL Absolute Nucleated RBC x10^3/uL Nucleated RBC % /100WBC PT 11.9 (9.9-12.6) secs INR 1.0 (0.8-1.2) Sodium 137 (135-145) mmol/L Potassium 3.7 (3.5-5.0) mmol/L Chloride 98 L (101-111) mmol/L Carbon Dioxide 24 (21-32) mmol/L Anion Gap 15.0 H (6-13) BUN 8 (6-20) mg/dL Creatinine 0.7 (0.6-1.2) mg/dL Estimated GFR (MDRD) 117 (>89) Glucose 107 H (70-100) mg/dL Calcium 8.8 (8.5-10.3) mg/dL Total Bilirubin 0.3 (0.2-1.0) mg/dL AST 26 (10-42) IU/L ALT 13 (10-60) IU/L Alkaline Phosphatase 89 (42-121) IU/L Total Protein 7.3 (6.7-8.2) g/dL Albumin 3.5 (3.2-5.5) g/dL Globulin 3.8 (2.1-4.2) g/dL Albumin/Globulin Ratio 0.9 L (1.0-2.2) Lipase 22 (22-51) U/L Urine Color YELLOW Urine Clarity CLEAR (CLEAR) Urine pH 7.5 (5.0-7.5) PH Ur Specific Lincoln 1.010 (1.002-1.030) Urine Protein NEGATIVE (NEGATIVE) mg/dL Urine Glucose (UA) NEGATIVE (NEGATIVE) mg/dL Urine Ketones NEGATIVE (NEGATIVE) mg/dL Urine Occult Blood NEGATIVE (NEGATIVE) Urine Nitrite NEGATIVE (NEGATIVE) Urine Bilirubin NEGATIVE (NEGATIVE) Urine Urobilinogen 0.2 (NORMAL) (NORMAL) E.U./dL Ur Leukocyte Esterase NEGATIVE (NEGATIVE) Ur Microscopic Review NOT INDICATED Urine Culture Comments NOT INDICATED Ethyl Alcohol 322.3 mg/dL 01/17/20 Range/Units 02:40 WBC 4.6 L (4.8-10.8) x10^3/uL RBC 3.69 L (4.70-6.10) 10^6/uL Hgb 12.6 L (14.0-18.0) g/dL Hct 35.5 L (42.0-52.0) % MCV 96.2 H (80.0-94.0) fL MCH 34.1 H (27.0-31.0) pg MCHC 35.5 (32.0-36.0) g/dL RDW 15.4 H (12.0-15.0) % Plt Count 345 (130-450) 10^3/uL MPV 8.8 (7.4-11.4) fL Neut # (Auto) 1.4 L (1.5-6.6) 10^3/uL Lymph # (Auto) 2.3 (1.5-3.5) 10^3/uL Sterling # (Auto) 0.8 (0.0-1.0) 10^3/uL Eos # (Auto) 0.1 (0.0-0.7) 10^3/uL Baso # (Auto) 0.1 (0.0-0.1) 10^3/uL Absolute Nucleated RBC 0.00 x10^3/uL Nucleated RBC % 0.0 /100WBC PT (9.9-12.6) secs INR (0.8-1.2) Sodium (135-145) mmol/L Potassium (3.5-5.0) mmol/L Chloride (101-111) mmol/L Carbon Dioxide (21-32) mmol/L Anion Gap (6-13) BUN (6-20) mg/dL Creatinine (0.6-1.2) mg/dL Estimated GFR (MDRD) (>89) Glucose (70-100) mg/dL Calcium (8.5-10.3) mg/dL Total Bilirubin (0.2-1.0) mg/dL AST (10-42) IU/L ALT (10-60) IU/L Alkaline Phosphatase (42-121) IU/L Total Protein (6.7-8.2) g/dL Albumin (3.2-5.5) g/dL Globulin (2.1-4.2) g/dL Albumin/Globulin Ratio (1.0-2.2) Lipase (22-51) U/L Urine Color Urine Clarity (CLEAR) Urine pH (5.0-7.5) PH Ur Specific Lincoln (1.002-1.030) Urine Protein (NEGATIVE) mg/dL Urine Glucose (UA) (NEGATIVE) mg/dL Urine Ketones (NEGATIVE) mg/dL Urine Occult Blood (NEGATIVE) Urine Nitrite (NEGATIVE) Urine Bilirubin (NEGATIVE) Urine Urobilinogen (NORMAL) E.U./dL Ur Leukocyte Esterase (NEGATIVE) Ur Microscopic Review Urine Culture Comments Ethyl Alcohol mg/dL - Diagnostic Imaging Results Diagnostic Imaging Results: positive: Final report reviewed Sepsis Event Note (H) - Evaluation Current Stage of Sepsis: Ruled out Impression/Plan - Problem List Problem List: 54-year-old male with past history notable for pancreatitis in the setting of longstanding alcohol use and abuse. Presents today with persistent abdominal pain. Recent evaluation at [facility] who at that time was noted for a "cyst". Today imaging revealed a posterior intramural gastric loculated fluid collection, large, however absent leukocytosis and without active fever it is uncertain whether this is abscess or progression/evolution of a historic presumptive pancreatic pseudocyst which the patient had developed recently and had undergone work-up at [facility] within the last several weeks. He is not tachycardic, his white count is 3.6, he has no concern for sepsis as he is without febrile episode at this time. Given the likely need for this patient to undergo endoscopic decompression with internal drainage for a likely pseudocyst and the inability to address this at this facility where we neither have advanced Gaster enterology with ability to perform cystogastrostomy endoscopically and or external drainage with int erventional radiology for which this patient would be contraindicated over the long-term risk of pancreatic fistula and/or gastric fistula, it would behoove us and the patient for his best interest to pursue transfer at this time. With regard to his interval management, I recommend continuing n.p.o., bowel rest, IV fluids including "banana bag", and would not consider IV antibiotics given the absence of anything other than fluid on imaging which at this time is without any correlates of abscess (vis--vis leukocytosis, fever, tachycardia, elevated inflammatory markers, etc.). We will pursue transfer and have discussed hospitalist service as well as emergency service at this time. Core Measures - Anticipated LOS I expect patient to be DC'd or transferred within 96 hours.: Yes - Issues Hospital Issues and Management Plan: See addendum
--- NOTE | 2020-01-17 16:59 | PHARMACY PROGRESS NOTE ---
- Best Possible Medication History Admit Date and Time: 01/17/20 1047 Processed by: Pharmacy Medication History completed: Yes Patient Interview: Pt unable to participate Secondary Source(s): Physician records, Previous admit records In addition to above sources, used discharge summary from [facility] from 01/12/2020. As the person ultimately responsible for medication therapy, providers are able to order a medication from an existing home medication list in [facility] via the "Reconcile Routine" prior to Confirmation of that medication by supportive employment case manager. Such practice is discouraged except when the physician, in their clinical judgment, deems that a medical need exists for a medication without regard to previous use.
[2020-01-17] MEDS ORDERED: SODIUM CHLORIDE FLUSH 0.9% 10 ML SYRINGE IVP SCH (17:00)
[2020-01-17 17:05] VITALS: BP 131/91
[2020-01-18] MEDS ORDERED: ENOXAPARIN 40 MG/0.4 ML SYRINGE SUBQ SCH (09:00)
--- NOTE | 2020-02-06 17:12 | DISCHARGE SUMMARY ---
Discharge Summary Admit Date: 02/17/20 Discharge Date: 02/17/20 Discharging Provider: Sherrie Code Status: Attempt Resuscitation Condition at Discharge: Stable Discharge Disposition: 02 Transfer Acute Care Hosp Discharge Facility Name: [facility] - DIAGNOSES Admission Diagnoses: Acute: Posterior gastric collection consistent with pancreatic pseudocyst and likely chronic pancreatitis Chronic: Cardiovascular - Hypertension, High cholesterol Respiratory - Sleep apnea, CPAP use GI - GERD, Pancreatitis, Cirrhosis, ETOH abuse Discharge Diagnoses with Status of Each Condition: Acute: PRESENT Posterior gastric collection consistent with pancreatic pseudocyst and likely chronic pancreatitis Chronic: ALL PRESENT Cardiovascular - Hypertension, High cholesterol Respiratory - Sleep apnea, CPAP use GI - GERD, Pancreatitis, Cirrhosis, ETOH abuse As discussed elsewhere in this note this patient was transferred to higher level of care at [facility] History of Present Illness: 54-year-old male with extensive past history of alcohol use and abuse who was seen through [facility] emergency department. Dr. Alexander saw the patient through the emergency room with complaints of nausea vomiting and epigastric abdominal pain. Surgery was called for consultation after CT imaging was noted for an intramural posterior gastric fluid collection concerning for abscess. At the time of my evaluation and upon discussing the patient's past surgical history he mentioned that last week he had undergone upper endoscopy for what was reported as a "cyst". At this point the patient was discussed with the ER provider that he was not a candidate for admission and necessitated transfer to facility that had recent performed upper endoscopy for presumptive pancreatic pseudocyst as we do not h ave the capacity and advanced gastroenterologic intervention for cystogastrostomy which would be likely intervention. - CONSULTS | PROCEDURES Consultations: Surgical Consultation Procedures: None - HOSPITAL COURSE Hospital Course: 54-year-old male with past history notable for pancreatitis in the setting of longstanding alcohol use and abuse. Presents today with persistent abdominal pain. Recent evaluation at [facility] who at that time was noted for a "cyst". Today imaging revealed a posterior intramural gastric loculated fluid collection, large, however absent leukocytosis and without active fever it is uncertain whether this is abscess or progression/evolution of a historic presumptive pancreatic pseudocyst which the patient had developed recently and had undergone work-up at [facility] within the last several weeks. He is not tachycardic, his white count is 3.6, he has no concern for sepsis as he is without febrile episode at this time. Given the likely need for this patient to undergo endoscopic decompression with internal drainage for a likely pseudocyst and the inability to address this at this facility where we neither have advanced Gaster enterology with ability to perform cystogastrostomy endoscopically and or external drainage with interventional radiology for which this patient would be contraindicated over the long-term risk of pancreatic fistula and/or gastric fistula, it would behoove us and the patient for his best interest to pursue transfer at this time. With regard to his interval management, I recommend continuing n.p.o., bowel rest, IV fluids including "banana bag", and would not consider IV antibiotics given the absence of anything other than fluid on imaging which at this time is without any correlates of abscess (vis--vis leukocytosis, fever, tachycardia, elevated inflammatory markers, etc.). We will pursue transfer and have discussed hospitalist service as well as emerg ency service at this time. I had discussed with Dr. 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 On reconstruction of the patient's recent [facility] work- up/visit, the patient was reported to have recurrent pancreatitis with reported "cyst" work up for which he was referred for management. He was also noted for gastric ulceration. In the setting of this history, together with imaging finding, it was likely that this was a pancreatic pseudocyst for which the patient would be best served with transfer for an advanced endoscopic evaluation and intervention together with medical management. Most notably placement of cyst gastrostomy for internal drainage as external percutaneous drainage could very likley potentially lead to longstanding/long-term pancreatic cutaneous fistula in this setting. I informed the [facility] hospitalist service who initially accepted the patient that this gentleman would be best served through transfer. Again, this was also shared/reiterated to Dr. Alexander. Patient had already been admitted contrary to these discussions, and after following up with the transfer service, I discussed the patient with Dr. Rhodes through [facility] transfer center. Dr. Rhodes had reviewed the images and also the patient's recent work-up at [facility] and himself agreed that this patient merited transfer. Moreover I discussed the patient's current condition with Dr. Shimon Garvin hospitalist at [facility]. After having shared the patient's current CBC, BMP, and vital signs together with his clinical presentation agreed to accept the patient to the hospitalist service. Thus the patient would be transferred to [facility] for which ambulance would be orchestrated. Thus plan is to transfer care for advanced gastroenterology and medical evaluation at [facility]. Patient was stable at the time of discharge and transfer by ambulance he was hemodynamically acceptable with no acute complaints. He was bowel rested n.p.o. on IV fluids. - ALLERGIES Allergies/Adverse Reactions: Allergies Allergy/AdvReac Type Severity Reaction Status Date / Time lisinopril Allergy Mild Anaphylaxis Verified 12/15/19 13:52 - MEDICATIONS Home Medications: Ambulatory Orders Medication Instructions Recorded Confirmed Thiamine HCl [Vitamin B-1] 100 mg PO DAILY #30 tablet 08/17/18 01/17/20 Furosemide [Lasix] 40 mg PO DAILY 08/19/19 01/17/20 Cholecalciferol [Vitamin D3] 1,000 units PO DAILY 01/17/20 01/17/20 Gabapentin [Neurontin] 600 mg PO TID 01/17/20 01/17/20 Lactulose 30 gm PO TID 01/17/20 01/17/20 Multivitamin W/Minerals [Theragran 1 each PO DAILY 01/17/20 01/17/20 M] Omeprazole 20 mg PO BIDAC 01/17/20 01/17/20 Propranolol [Inderal] 30 mg PO BID 01/17/20 01/17/20 Sucralfate [Carafate] 1 gm PO BIDAC 01/17/20 01/17/20 Tamsulosin [Flomax] 0.4 mg PO DAILY 01/17/20 01/17/20 - LABS Result Diagrams: 01/17/20 02:40 01/17/20 02:40 - SEPSIS Current Stage of Sepsis: Ruled out
== END 2020-01-17 16:48 | disposition short-term general hospital (02) | DRG 440 ==
LOC: EDUNIT# → ED 01:19 → MS2 10:47
PROVIDERS: ADMIT Nurse Practitioner; ATTEND Surgery
DX: R10.30 Lower abdominal pain, unspecified (principal); F10.229 Alcohol dependence with intoxication, unspecified; Y90.8 Blood alcohol level of 240 mg/100 ml or more; K86.3 Pseudocyst of pancreas; K86.1 Other chronic pancreatitis; K74.60 Unspecified cirrhosis of liver; F10.10 Alcohol abuse, uncomplicated; K85.90 Acute pancreatitis without necrosis or infection, unspecified; K21.9 Gastro-esophageal reflux disease without esophagitis; I10 Essential (primary) hypertension; G47.30 Sleep apnea, unspecified; E78.00 Pure hypercholesterolemia, unspecified; F32.9 Major depressive disorder, single episode, unspecified; F41.0 Panic disorder [episodic paroxysmal anxiety]; F40.240 Claustrophobia; R32 Unspecified urinary incontinence; Z96.649 Presence of unspecified artificial hip joint; Z66 Do not resuscitate; Z79.52 Long term (current) use of systemic steroids; Z79.51 Long term (current) use of inhaled steroids; Z86.69 Personal history of other diseases of the nervous system and sense organs
CPT/HCPCS: 36415; 74177; 80053; 81003; 83690; 85025; 85610; 96365; 96367; 96375; 99284; 99285; J2765; J3411; Q9967; 80320; 81001; 87086

== ENCOUNTER 2020-01-17 16:49 | Outpatient (CLI) | payer MEDICARE, MEDICAID | END 2020-01-17 16:50 | disposition short-term general hospital (02) | LOC: EMS 16:49 | PROVIDERS: ATTEND Surgery | DX: R10.9 Unspecified abdominal pain (principal) | CPT/HCPCS: A0425; A0426 ==

== ENCOUNTER 2020-01-29 19:54 | Outpatient (CLI) | payer MEDICARE, MEDICAID | END 2020-01-29 19:55 | disposition short-term general hospital (02) | LOC: EMS 19:54 | PROVIDERS: ATTEND Surgery | DX: R10.9 Unspecified abdominal pain (principal); Z72.89 Other problems related to lifestyle | CPT/HCPCS: A0425; A0429 ==

== ENCOUNTER 2020-02-17 15:28 | Outpatient (CLI) | payer MEDICARE, MEDICAID | END 2020-02-17 15:29 | disposition critical access hospital (66) | LOC: EMS 15:28 | PROVIDERS: ATTEND Surgery | DX: R46.4 Slowness and poor responsiveness (principal); R26.81 Unsteadiness on feet | CPT/HCPCS: A0425; A0429 ==

== ENCOUNTER 2020-02-17 15:47 | Emergency (ER) | payer MEDICARE, MEDICAID ==
[2020-02-17] MEDS ORDERED: THIAMINE 100 MG TABLET PO STA (15:53)
--- NOTE | 2020-02-17 15:55 | ED Physician Documentation ---
History of Present Illness - Stated complaint Stated Complaint: ETOH - History obtained from History obtained from: Patient, EMS - Additonal information Additional information: This is a 54-year-old gentleman who is very well-known to this emergency department. 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 He has been drinking today and reportedly also used something containing CBD oil. Now he is speaking very slowly, seems confused. He has no specific complaints. Review of Systems Unable to obtain: Intoxicated PD PAST MEDICAL HISTORY - Past Medical History Cardiovascular: Hypertension, High cholesterol Respiratory: Sleep apnea, CPAP use Neuro: Headaches, Other Endocrine/Autoimmune: None, Other GI: GERD, Pancreatitis, Cirrhosis : Incontinence HEENT: None Psych: Depression, Anxiety, Panic attacks, Claustrophobia Musculoskeletal: Osteoarthritis Derm: None - Past Surgical History Past Surgical History: Yes Ortho: Hip replacement, Arthroscopic surgery HEENT: Tracheostomy - Present Medications Home Medications: Ambulatory Orders Medication Instructions Recorded Confirmed Thiamine HCl [Vitamin B-1] 100 mg PO DAILY #30 tablet 08/17/18 01/17/20 Furosemide [Lasix] 40 mg PO DAILY 08/19/19 01/17/20 Cholecalciferol [Vitamin D3] 1,000 units PO DAILY 01/17/20 01/17/20 Gabapentin [Neurontin] 600 mg PO TID 01/17/20 01/17/20 Lactulose 30 gm PO TID 01/17/20 01/17/20 Multivitamin W/Minerals [Theragran 1 each PO DAILY 01/17/20 01/17/20 M] Omeprazole 20 mg PO BIDAC 01/17/20 01/17/20 Propranolol [Inderal] 30 mg PO BID 01/17/20 01/17/20 Sucralfate [Carafate] 1 gm PO BIDAC 01/17/20 01/17/20 Tamsulosin [Flomax] 0.4 mg PO DAILY 01/17/20 01/17/20 - Allergies Allergies/Adverse Reactions: Allergies Allergy/AdvReac Type Severity Reaction Status Date / Time lisinopril Allergy Mild Anaphylaxis Verified 12/15/19 13:52 - Social History Does the pt smoke?: No Smoking Status: Never smoker Does the pt drink ETOH?: Yes Does the pt have substance abuse?: Yes - Immunizations Immunizations are current?: Yes Immunizations: Other immun not current - POLST Patient has POLST: No POLST Status: DNR (pt clearly state to me it is DNR, Pt's mother at the bedside did not say no.) PD ED PE NORMAL - Vitals Vital signs reviewed: Yes - General General: Other (He is alert and oriented to person and place but not time or events. Slow slurred speech with lots of nystagmus.) - HEENT HEENT: PERRL - Neck Neck: Supple, no meningeal sign, No bony TTP - Cardiac Cardiac: RRR, No murmur - Respiratory Respiratory: No respiratory distress, Clear bilaterally - Abdomen Abdomen: Non tender - Derm Derm: Normal color, Warm and dry, Other (Not icteric) - Extremities Extremities: No deformity, No tenderness to palpate, Other (Mild bilateral pitting pedal edema) - Neuro Eye Opening: Spontaneous Motor: Obeys Commands Verbal: Confused GCS Score: 14 Results - Vitals Vitals: Vital Signs - 24 hr 02/17/20 02/17/20 02/17/20 15:55 16:30 17:01 Temperature 37.4 C Heart Rate 93 78 77 Respiratory 16 14 20 Rate Blood Pressure 93/65 92/64 83/64 L O2 Saturation 98 92 90 L 02/17/20 19:00 Temperature Heart Rate 75 Respiratory 16 Rate Blood Pressure 92/67 O2 Saturation 94 Oxygen O2 Source Room air - Labs Labs: Laboratory Tests 02/17/20 02/17/20 02/17/20 16:00 16:00 16:20 WBC 4.3 L RBC 3.42 L Hgb 11.7 L Hct 35.5 L MCV 103.8 H MCH 34.2 H MCHC 33.0 RDW 14.1 Plt Count 215 MPV 9.3 Neut # (Auto) 2.5 Lymph # (Auto) 0.8 L Arthur # (Auto) 0.8 Eos # (Auto) 0.2 Baso # (Auto) 0.0 Absolute Nucleated RBC 0.00 Nucleated RBC % 0.0 Sodium 140 Potassium 4.5 Chloride 101 Carbon Dioxide 26 Anion Gap 13.0 BUN 24 H Creatinine 1.0 Estimated GFR (MDRD) 78 L Glucose 97 Calcium 10.1 Total Bilirubin 1.4 H AST 22 ALT 12 Alkaline Phosphatase 99 Ammonia < 10.0 Total Protein 7.1 Albumin 3.9 Globulin 3.2 Albumin/Globulin Ratio 1.2 Lipase 14 L Urine Opiates Screen Ur Oxycodone Screen Urine Methadone Screen Ur Propoxyphene Screen Ur Barbiturates Screen Ur Tricyclics Screen Ur Phencyclidine Scrn Ur Amphetamine Screen U Methamphetamines Scrn U Benzodiazepines Scrn Urine Cocaine Screen U Cannabinoids Screen Ethyl Alcohol < 5.0 02/17/20 18:00 WBC RBC Hgb Hct MCV MCH MCHC RDW Plt Count MPV Neut # (Auto) Lymph # (Auto) Arthur # (Auto) Eos # (Auto) Baso # (Auto) Absolute Nucleated RBC Nucleated RBC % Sodium Potassium Chloride Carbon Dioxide Anion Gap BUN Creatinine Estimated GFR (MDRD) Glucose Calcium Total Bilirubin AST ALT Alkaline Phosphatase Ammonia Total Protein Albumin Globulin Albumin/Globulin Ratio Lipase Urine Opiates Screen NEGATIVE Ur Oxycodone Screen POSITIVE H Urine Methadone Screen NEGATIVE Ur Propoxyphene Screen NEGATIVE Ur Barbiturates Screen NEGATIVE Ur Tricyclics Screen NEGATIVE Ur Phencyclidine Scrn NEGATIVE Ur Amphetamine Screen NEGATIVE U Methamphetamines Scrn NEGATIVE U Benzodiazepines Scrn POSITIVE H Urine Cocaine Screen NEGATIVE U Cannabinoids Screen POSITIVE H Ethyl Alcohol PD MEDICAL DECISION MAKING - ED course ED course: 54-year-old gentleman with chronic alcoholism presents with altered mental status, he used a lot of CBD oil today. This may have been causative. No alcohol on board. He denies using benzodiazepines today. He was allowed to sober up in the emergency department and was ambulatory independently without issue. His mental status improved significantly. Departure - Departure Disposition: 01 Home, Self Care Clinical Impression: Drug overdose Qualifiers: Encounter type: initial encounter Injury intent: undetermined intent Qualified Code(s): T50.904A - Poisoning by unspecified drugs, medicaments and biological substances, undetermined, initial encounter Condition: Good Record reviewed to determine appropriate education?: Yes Instructions: ED Overdose Accidental Comments: Probably best given your history to avoid all use of drugs, alcohol. Follow-up with your physician and return if worse. No driving.
[2020-02-17 16:09] LABS: BASOPHILS % (AUTO) 0.7 %; EOSINOPHILS # (AUTO) 0.2 10^3/uL (0.0-0.7); EOSINOPHILS % (AUTO) 4.4 %; HGB - HEMOGLOBIN 11.7 g/dL (14.0-18.0); LYMPHOCYTES # (AUTO) 0.8 10^3/uL (1.5-3.5); LYMPHOCYTES % (AUTO) 18.8 %; MEAN CORPUSCULAR HEMOGLOBIN 34.2 pg (27.0-31.0); MEAN CORPUSCULAR VOLUME 103.8 fL (80.0-94.0); MEAN PLATELET VOLUME 9.3 fL (7.4-11.4); MONOCYTES # (AUTO) 0.8 10^3/uL (0.0-1.0); NEUTROPHILS # (AUTO) 2.5 10^3/uL (1.5-6.6); NEUTROPHILS % (AUTO) 56.9 %; PLT - PLATELET COUNT 215 10^3/uL (130-450); RED BLOOD COUNT 3.42 10^6/uL (4.70-6.10); RED CELL DISTRIBUTION WIDTH 14.1 % (12.0-15.0); WHITE BLOOD COUNT 4.3 x10^3/uL (4.8-10.8)
[2020-02-17 16:19] LABS: ALBUMIN 3.9 g/dL (3.2-5.5); ALBUMIN/GLOBULIN RATIO 1.2 (1.0-2.2); ALKALINE PHOSPHATASE 99 IU/L (42-121); ALT ALANINE AMINOTRANSFERASE 12 IU/L (10-60); AST ASPARTATE AMINOTRANSFERASE 22 IU/L (10-42); BILIRUBIN,TOTAL 1.4 mg/dL (0.2-1.0); BUN - BLOOD UREA NITROGEN 24 mg/dL (6-20); CALCIUM 10.1 mg/dL (8.5-10.3); CARBON DIOXIDE - CO2 26 mmol/L (21-32); CHLORIDE 101 mmol/L (101-111); GLUCOSE 97 mg/dL (70-100); LIPASE 14 U/L (22-51); SODIUM 140 mmol/L (135-145); TOTAL PROTEIN 7.1 g/dL (6.7-8.2)
[2020-02-17 18:11] LABS: MUDS CUTOFF CONCENTRATIONS CUTOFF CONC BELOW:
[2020-02-17 18:31] LABS: AMPHETAMINE SCREEN,URINE NEGATIVE (NEGATIVE); BENZODIAZEPINES SCREEN, URINE POSITIVE (NEGATIVE); COCAINE SCREEN URINE NEGATIVE (NEGATIVE); METHADONE SCREEN, URINE NEGATIVE (NEGATIVE); METHAMPHETAMINES SCREEN, URINE NEGATIVE (NEGATIVE); OPIATE SCREEN, URINE NEGATIVE (NEGATIVE); OXYCODONE SCREEN, URINE POSITIVE (NEGATIVE); PROPOXYPHENE SCREEN, URINE NEGATIVE (NEGATIVE); TRICYCLIC ANTIDEPRESSANT,URINE NEGATIVE (NEGATIVE)
[2020-02-17 21:01] VITALS: BP 94/75
== END 2020-02-17 21:01 | disposition home or self-care (01) ==
LOC: EDUNIT# → ED 15:47
DX: T50.904A Poisoning by unspecified drugs, medicaments and biological substances, undetermined, initial encounter (principal); R41.0 Disorientation, unspecified; Z66 Do not resuscitate
CPT/HCPCS: 36415; 80053; 80306; 82140; 83690; 85025; 99281; 99283; A9270; 80320

== ENCOUNTER 2020-02-21 21:53 | Outpatient (CLI) | payer MEDICARE, MEDICAID | END 2020-02-21 21:54 | disposition critical access hospital (66) | LOC: EMS 21:53 | PROVIDERS: ATTEND Surgery | DX: F41.9 Anxiety disorder, unspecified (principal); Z72.89 Other problems related to lifestyle; R10.9 Unspecified abdominal pain | CPT/HCPCS: A0425; A0429 ==

== ENCOUNTER 2020-02-21 22:11 | Emergency (ER) | payer MEDICARE, MEDICAID ==
--- NOTE | 2020-02-21 22:26 | ED Physician Documentation ---
PD HPI ALTERED MENTAL STATUS - Stated complaint Stated Complaint: ETOH - History obtained from History obtained from: Patient - History of Present Illness Timing - onset: Today (The patient states he has been feeling anxious and a little bit depressed. No suicidal ideation. He does drink regularly and drank today and perhaps a little more than usual which actually made him feel more anxious. He denies any concurrent recreational drug use.) Timing - duration: Days (1) Timing - details: Gradual onset Quality / character: Agitated (He denied any particular trigger to his anxiety but just felt anxious through the day. He lives with his mother who is 82 years old and he says that she does bother him at times. She is self-sufficient and he is not her caregiver. No thoughts of self-harm or harming her.) Associated symptoms: No: Fever, Headache, Dyspnea, Cough Contributing factors: Intoxicated. No: Diabetic, Recent illness, Recent injury Basline status: 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, Ambulatory Review of Systems Constitutional: denies: Fever, Chills Nose: denies: Rhinorrhea / runny nose, Congestion Throat: denies: Sore throat Respiratory: denies: Cough GI: reports: Abdominal Pain (intermittent upper pains from ulcer. Takes Omeprazole.). denies: Nausea, Vomiting, Diarrhea Skin: denies: Abrasion (s), Laceration (s) Neurologic: denies: Focal weakness, Numbness, Near syncope, Altered mental status, Headache Psychiatric: reports: Depressed (mild chronic), Anxiety. denies: Suicidal, Homicidal PD PAST MEDICAL HISTORY - Past Medical History Cardiovascular: Hypertension, High cholesterol Respiratory: Sleep apnea, CPAP use Neuro: Headaches, Other Endocrine/Autoimmune: None, Other GI: GERD, Pancreatitis, Cirrhosis : Incontinence HEENT: None Psych: Depression, Anxiety, Panic attacks, Claustrophobia Musculoskeletal: Osteoarthritis Derm: None - Past Surgical History Past Surgical History: Yes Ortho: Hip replacement, Arthroscopic surgery HEENT: Tracheostomy - Present Medications Home Medications: Ambulatory Orders Medication Instructions Recorded Confirmed Thiamine HCl [Vitamin B-1] 100 mg PO DAILY #30 tablet 08/17/18 01/17/20 Furosemide [Lasix] 40 mg PO DAILY 08/19/19 01/17/20 Cholecalciferol [Vitamin D3] 1,000 units PO DAILY 01/17/20 01/17/20 Gabapentin [Neurontin] 600 mg PO TID 01/17/20 01/17/20 Lactulose 30 gm PO TID 01/17/20 01/17/20 Multivitamin W/Minerals [Theragran 1 each PO DAILY 01/17/20 01/17/20 M] Omeprazole 20 mg PO BIDAC 01/17/20 01/17/20 Propranolol [Inderal] 30 mg PO BID 01/17/20 01/17/20 Sucralfate [Carafate] 1 gm PO BIDAC 01/17/20 01/17/20 Tamsulosin [Flomax] 0.4 mg PO DAILY 01/17/20 01/17/20 buPROPion [Wellbutrin Sr] 150 mg PO DAILY #30 tablet 02/21/20 - Allergies Allergies/Adverse Reactions: Allergies Allergy/AdvReac Type Severity Reaction Status Date / Time lisinopril Allergy Mild Anaphylaxis Verified 02/21/20 22:19 - Social History Does the pt smoke?: No Smoking Status: Never smoker Does the pt drink ETOH?: Yes Does the pt have substance abuse?: Yes - Immunizations Immunizations are current?: Yes Immunizations: Other immun not current - POLST Patient has POLST: No POLST Status: DNR (pt clearly state to me it is DNR, Pt's mother at the bedside did not say no.) PD ED PE NORMAL - Vitals Vital signs reviewed: Yes - General General: 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, No acute distress, Well developed/nourished - HEENT HEENT: Pharynx benign - Neck Neck: Supple, no meningeal sign, No adenopathy - Cardiac Cardiac: RRR, No murmur - Respiratory Respiratory: Clear bilaterally - Abdomen Abdomen: Normal bowel sounds, Soft, Non tender, Non distended - Derm Derm: Normal color, Warm and dry - Extremities Extremities: No edema, No calf tenderness / cord - Neuro Neuro: 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, No motor deficit, Normal speech Eye Opening: Spontaneous Motor: Obeys Commands Verbal: Oriented GCS Score: 15 Results - Vitals Vitals: Vital Signs - 24 hr 02/21/20 02/21/20 02/22/20 22:16 22:29 00:06 Temperature 36.6 C 36.6 C Heart Rate 93 93 82 Respiratory 18 18 18 Rate Blood Pressure 145/106 H 145/106 H 110/79 O2 Saturation 100 100 95 Oxygen O2 Source Room air - Labs Labs: Laboratory Tests 02/21/20 02/21/20 02/21/20 22:44 22:44 22:44 WBC 3.0 L RBC 4.05 L Hgb 14.1 Hct 40.0 L MCV 98.8 H MCH 34.8 H MCHC 35.3 RDW 13.5 Plt Count 313 MPV 9.1 Neut # (Auto) 1.2 L Lymph # (Auto) 1.4 L Maries # (Auto) 0.3 Eos # (Auto) 0.0 Baso # (Auto) 0.0 Absolute Nucleated RBC 0.00 Nucleated RBC % 0.0 Sodium 137 Potassium 3.5 Chloride 95 L Carbon Dioxide 25 Anion Gap 17.0 H BUN 9 Creatinine 0.8 Estimated GFR (MDRD) 100 Glucose 99 Calcium 9.1 Magnesium 1.7 Total Bilirubin 0.4 AST 31 ALT 16 Alkaline Phosphatase 92 Total Protein 7.7 Albumin 4.1 Globulin 3.6 Albumin/Globulin Ratio 1.1 Lipase 13 L TSH 1.08 Urine Color Urine Clarity Urine pH Ur Specific [place] Urine Protein Urine Glucose (UA) Urine Ketones Urine Occult Blood Urine Nitrite Urine Bilirubin Urine Urobilinogen Ur Leukocyte Esterase Ur Microscopic Review Urine Culture Comments Salicylates < 6.0 Urine Opiates Screen Ur Oxycodone Screen Urine Methadone Screen Ur Propoxyphene Screen Acetaminophen < 10 L Ur Barbiturates Screen Ur Tricyclics Screen Ur Phencyclidine Scrn Ur Amphetamine Screen U Methamphetamines Scrn U Benzodiazepines Scrn Urine Cocaine Screen U Cannabinoids Screen Ethyl Alcohol 308.0 02/21/20 22:50 WBC RBC Hgb Hct MCV MCH MCHC RDW Plt Count MPV Neut # (Auto) Lymph # (Auto) Maries # (Auto) Eos # (Auto) Baso # (Auto) Absolute Nucleated RBC Nucleated RBC % Sodium Potassium Chloride Carbon Dioxide Anion Gap BUN Creatinine Estimated GFR (MDRD) Glucose Calcium Magnesium Total Bilirubin AST ALT Alkaline Phosphatase Total Protein Albumin Globulin Albumin/Globulin Ratio Lipase TSH Urine Color YELLOW Urine Clarity CLEAR Urine pH 6.0 Ur Specific [place] 1.015 Urine Protein NEGATIVE Urine Glucose (UA) NEGATIVE Urine Ketones 15 H Urine Occult Blood NEGATIVE Urine Nitrite NEGATIVE Urine Bilirubin NEGATIVE Urine Urobilinogen 0.2 (NORMAL) Ur Leukocyte Esterase NEGATIVE Ur Microscopic Review NOT INDICATED Urine Culture Comments NOT INDICATED Salicylates Urine Opiates Screen NEGATIVE Ur Oxycodone Screen NEGATIVE Urine Methadone Screen NEGATIVE Ur Propoxyphene Screen NEGATIVE Acetaminophen Ur Barbiturates Screen NEGATIVE Ur Tricyclics Screen NEGATIVE Ur Phencyclidine Scrn NEGATIVE Ur Amphetamine Screen NEGATIVE U Methamphetamines Scrn NEGATIVE U Benzodiazepines Scrn POSITIVE H Urine Cocaine Screen NEGATIVE U Cannabinoids Screen POSITIVE H Ethyl Alcohol PD MEDICAL DECISION MAKING - ED course Complexity details: re-evaluated patient (He initially was saying he wanted to try to get to detox. He change his mind however and states he rather go home. He called a taxi and will be driven home.), considered differential (He denies any regular medication use. He has not been on any medicines for depression or anxiety. He is interested in perhaps a detox center short-term. We will get labs and urine test and the nurses may be able to find something this evening. Otherwise social work in the morning.), d/w patient Departure - Departure Disposition: 01 Home, Self Care Clinical Impression: Anxiety Depression Qualifiers: Depression Type: unspecified Qualified Code(s): F32.9 - Major depressive disorder, single episode, unspecified Alcohol intoxication Qualifiers: Complication of substance-induced condition: uncomplicated Qualified Code(s): F10.920 - Alcohol use, unspecified with intoxication, uncomplicated Condition: Stable Record reviewed to determine appropriate education?: Yes Instructions: ED Alcohol Intoxication, ED Panic Attack Follow-Up: [facility] [Provider Group] [facility] [Provider Group] Prescriptions: buPROPion [Wellbutrin Sr] 150 mg PO DAILY #30 tablet Comments: Avoid excess alcohol. If you do have withdrawal type symptoms, you can use lorazepam every 6-8 hours if needed for shakiness and withdrawal. Follow-up with the primary care clinic. You could also follow-up with [facility] regarding anxiety/depression and also with the substance abuse. If you are interested in starting daily medicine to see if it will help with anxiety and depression (as we discussed), I wrote a prescription for bupropion to take once daily initially. Follow-up with primary care and see if this is helpful medicine that could be continued by them. Discharge Date/Time: 02/22/20 00:06
[2020-02-21 22:48] LABS: BASOPHILS % (AUTO) 1.3 %; HGB - HEMOGLOBIN 14.1 g/dL (14.0-18.0); NEUTROPHILS # (AUTO) 1.2 10^3/uL (1.5-6.6)
[2020-02-21 22:51] LABS: LYMPHOCYTES # (AUTO) 1.4 10^3/uL (1.5-3.5); LYMPHOCYTES % (AUTO) 46.3 %; MEAN CORPUSCULAR HEMOGLOBIN 34.8 pg (27.0-31.0); MEAN CORPUSCULAR HGB CONC 35.3 g/dL (32.0-36.0); MEAN CORPUSCULAR VOLUME 98.8 fL (80.0-94.0); MEAN PLATELET VOLUME 9.1 fL (7.4-11.4); MONOCYTES # (AUTO) 0.3 10^3/uL (0.0-1.0); MONOCYTES % (AUTO) 9.3 %; NEUTROPHILS % (AUTO) 41.4 %; PLT - PLATELET COUNT 313 10^3/uL (130-450); RED BLOOD COUNT 4.05 10^6/uL (4.70-6.10); RED CELL DISTRIBUTION WIDTH 13.5 % (12.0-15.0)
[2020-02-21 22:57] LABS: BILIRUBIN,URINE NEGATIVE (NEGATIVE); GLUCOSE, URINE (UA) NEGATIVE (NEGATIVE); KETONES,URINE (UA) 15 mg/dL (NEGATIVE); LEUKOCYTE ESTERASE, URINE NEGATIVE (NEGATIVE); MUDS CUTOFF CONCENTRATIONS CUTOFF CONC BELOW:; NITRITE,URINE NEGATIVE (NEGATIVE); OCCULT BLOOD,URINE NEGATIVE (NEGATIVE); PROTEIN,URINE NEGATIVE (NEGATIVE); UROBILINOGEN,URINE 0.2 (NORMAL) E.U./dL (NORMAL)
[2020-02-21 23:00] LABS: CLARITY,URINE CLEAR (CLEAR)
[2020-02-21 23:03] LABS: ACETAMINOPHEN < 10 ug/mL (10-30); ALBUMIN 4.1 g/dL (3.2-5.5); ALBUMIN/GLOBULIN RATIO 1.1 (1.0-2.2); ALKALINE PHOSPHATASE 92 IU/L (42-121); ALT ALANINE AMINOTRANSFERASE 16 IU/L (10-60); AST ASPARTATE AMINOTRANSFERASE 31 IU/L (10-42); BILIRUBIN,TOTAL 0.4 mg/dL (0.2-1.0); BUN - BLOOD UREA NITROGEN 9 mg/dL (6-20); CALCIUM 9.1 mg/dL (8.5-10.3); CARBON DIOXIDE - CO2 25 mmol/L (21-32); CHLORIDE 95 mmol/L (101-111); CREATININE 0.8 mg/dL (0.6-1.2); GLUCOSE 99 mg/dL (70-100); LIPASE 13 U/L (22-51); MAGNESIUM 1.7 mg/dL (1.7-2.8); SALICYLATE < 6.0 mg/dL; SODIUM 137 mmol/L (135-145); TOTAL PROTEIN 7.7 g/dL (6.7-8.2)
[2020-02-21 23:07] LABS: AMPHETAMINE SCREEN,URINE NEGATIVE (NEGATIVE); BENZODIAZEPINES SCREEN, URINE POSITIVE (NEGATIVE); COCAINE SCREEN URINE NEGATIVE (NEGATIVE); METHADONE SCREEN, URINE NEGATIVE (NEGATIVE); METHAMPHETAMINES SCREEN, URINE NEGATIVE (NEGATIVE); OPIATE SCREEN, URINE NEGATIVE (NEGATIVE); OXYCODONE SCREEN, URINE NEGATIVE (NEGATIVE); PROPOXYPHENE SCREEN, URINE NEGATIVE (NEGATIVE); TRICYCLIC ANTIDEPRESSANT,URINE NEGATIVE (NEGATIVE)
[2020-02-22 00:07] VITALS: BP 110/79
== END 2020-02-22 00:06 | disposition home or self-care (01) ==
LOC: EDUNIT# → ED 22:11
DX: F41.9 Anxiety disorder, unspecified (principal); F32.9 Major depressive disorder, single episode, unspecified; F10.129 Alcohol abuse with intoxication, unspecified; Z66 Do not resuscitate
CPT/HCPCS: 36415; 80053; 80306; 80307; 80320; 80329; 81001; 81003; 83690; 83735; 84443; 85025; 87086; 99283; 99284

== ENCOUNTER 2020-02-24 20:42 | Outpatient (CLI) | payer MEDICARE, MEDICAID | END 2020-02-24 20:43 | disposition critical access hospital (66) | LOC: EMS 20:42 | PROVIDERS: ATTEND Surgery | DX: Z76.89 Persons encountering health services in other specified circumstances (principal) | CPT/HCPCS: A0425; A0429 ==

== ENCOUNTER 2020-02-24 20:59 | Emergency (ER) | payer MEDICARE, MEDICAID ==
--- NOTE | 2020-02-24 21:06 | ED Physician Documentation ---
History of Present Illness - Stated complaint Stated Complaint: HBD - History obtained from History obtained from: Patient - History of Present Illness Timing: Today - Additonal information Additional information: BIBA. Patient well known to this ED for frequent visits over years, mostly for alcohol-related presentations and/or complications. Today, he tells me "I drank too much". He tells me "I want to go home, but then again, I don't." Asked to elaborate, he cannot give me more information that makes it clear what he is hoping can be done for him on alexi's ED visit. I recommended IV for fluids ("banana bag") and basic blood tests and then reevaluation once he is more sober Review of Systems Cardiac: reports: Reviewed and negative Respiratory: reports: Reviewed and negative GI: reports: Reviewed and negative Neurologic: denies: Confused, Altered mental status PD PAST MEDICAL HISTORY - Past Medical History Cardiovascular: Hypertension, High cholesterol Respiratory: Sleep apnea, CPAP use Neuro: Headaches, Other Endocrine/Autoimmune: None, Other GI: GERD, Pancreatitis, Cirrhosis : Incontinence HEENT: None Psych: Depression, Anxiety, Panic attacks, Claustrophobia Musculoskeletal: Osteoarthritis Derm: None - Past Surgical History Past Surgical History: Yes Ortho: Hip replacement, Arthroscopic surgery HEENT: Tracheostomy - Present Medications Home Medications: Ambulatory Orders Medication Instructions Recorded Confirmed Thiamine HCl [Vitamin B-1] 100 mg PO DAILY #30 tablet 08/17/18 01/17/20 Furosemide [Lasix] 40 mg PO DAILY 08/19/19 01/17/20 Cholecalciferol [Vitamin D3] 1,000 units PO DAILY 01/17/20 01/17/20 Gabapentin [Neurontin] 600 mg PO TID 01/17/20 01/17/20 Lactulose 30 gm PO TID 01/17/20 01/17/20 Multivitamin W/Minerals [Theragran 1 each PO DAILY 01/17/20 01/17/20 M] Omeprazole 20 mg PO BIDAC 01/17/20 01/17/20 Propranolol [Inderal] 30 mg PO BID 01/17/20 01/17/20 Sucralfate [Carafate] 1 gm PO BIDAC 01/17/20 01/17/20 Tamsulosin [Flomax] 0.4 mg PO DAILY 01/17/20 01/17/20 buPROPion [Wellbutrin Sr] 150 mg PO DAILY #30 tablet 02/21/20 - Allergies Allergies/Adverse Reactions: Allergies Allergy/AdvReac Type Severity Reaction Status Date / Time lisinopril Allergy Mild Anaphylaxis Verified 02/21/20 22:19 - Social History Does the pt smoke?: No Smoking Status: Never smoker Does the pt drink ETOH?: Yes Does the pt have substance abuse?: Yes - Immunizations Immunizations are current?: Yes Immunizations: Other immun not current - POLST Patient has POLST: No POLST Status: DNR (pt clearly state to me it is DNR, Pt's mother at the bedside did not say no.) PD ED PE NORMAL - Vitals Vital signs reviewed: Yes - General General: No acute distress, Well developed/nourished - HEENT HEENT: Moist mucous membranes - Cardiac Cardiac: RRR, No murmur - Respiratory Respiratory: No respiratory distress, Clear bilaterally - Abdomen Abdomen: Soft, Non tender - Derm Derm: Normal color, Warm and dry - Neuro Neuro: 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 Results - Vitals Vitals: Vital Signs - 24 hr 02/24/20 02/24/20 21:08 22:40 Temperature 36.7 C Heart Rate 95 78 Respiratory 16 16 Rate Blood Pressure 128/94 H 118/68 O2 Saturation 99 99 Oxygen O2 Source Room air - Labs Labs: Laboratory Tests 02/24/20 02/24/20 21:30 21:30 WBC 4.8 RBC 4.07 L Hgb 14.2 Hct 39.2 L MCV 96.3 H MCH 34.9 H MCHC 36.2 H RDW 13.2 Plt Count 385 MPV 9.4 Neut # (Auto) 1.3 L Lymph # (Auto) 2.7 Placer # (Auto) 0.6 Eos # (Auto) 0.1 Baso # (Auto) 0.0 Absolute Nucleated RBC 0.00 Nucleated RBC % 0.0 Sodium 136 Potassium 3.9 Chloride 94 L Carbon Dioxide 26 Anion Gap 16.0 H BUN 5 L Creatinine 0.6 Estimated GFR (MDRD) 140 Glucose 92 Calcium 9.0 Ethyl Alcohol 413.4 PD MEDICAL DECISION MAKING - ED course Complexity details: reviewed old records, reviewed results, re-evaluated patient, considered differential, d/w patient ED course: held in ED for rehydration (given 1 liter "banana bag" with thiamine and MV) and bood tests. He asked to be discharged but agreed to at least stay until the fluids were in and blood tests performed. He was awake, alert, conversant and provided appropriate answers on reevaluation prior to d/c and he was able to ambulate easily and without assistance prior to d/c. Departure - Departure Disposition: 01 Home, Self Care Clinical Impression: Alcoholism Condition: Good Instructions: ED Alcohol Intoxication, ED Alcohol Abuse Follow-Up: VINCNEZO BANKS MD [Primary Care Provider] - Within 1 week Discharge Date/Time: 02/25/20 00:35
[2020-02-24] MEDS ORDERED: FOLIC ACID INJ 1 MG, THIAMINE INJ 100 MG, MAGNESIUM SULFATE 2 GM, MULTIVITAMIN 10 ML in... IV STA ×5 (21:21)
[2020-02-24 21:39] LABS: BASOPHILS % (AUTO) 0.6 %; EOSINOPHILS # (AUTO) 0.1 10^3/uL (0.0-0.7); EOSINOPHILS % (AUTO) 1.5 %; HGB - HEMOGLOBIN 14.2 g/dL (14.0-18.0); LYMPHOCYTES # (AUTO) 2.7 10^3/uL (1.5-3.5); LYMPHOCYTES % (AUTO) 56.8 %; MEAN CORPUSCULAR HEMOGLOBIN 34.9 pg (27.0-31.0); MEAN CORPUSCULAR HGB CONC 36.2 g/dL (32.0-36.0); MEAN CORPUSCULAR VOLUME 96.3 fL (80.0-94.0); MEAN PLATELET VOLUME 9.4 fL (7.4-11.4); MONOCYTES # (AUTO) 0.6 10^3/uL (0.0-1.0); MONOCYTES % (AUTO) 13.1 %; NEUTROPHILS # (AUTO) 1.3 10^3/uL (1.5-6.6); NEUTROPHILS % (AUTO) 27.4 %; PLT - PLATELET COUNT 385 10^3/uL (130-450); RED BLOOD COUNT 4.07 10^6/uL (4.70-6.10); RED CELL DISTRIBUTION WIDTH 13.2 % (12.0-15.0); WHITE BLOOD COUNT 4.8 x10^3/uL (4.8-10.8)
[2020-02-24] MEDS ORDERED: THIAMINE 100 MG/1 ML 2 ML MDV ONE (21:44)
[2020-02-24] MEDS ORDERED: MAGNESIUM SULFATE 1 GM/2 ML VIAL ONE (21:44)
[2020-02-24] MEDS ORDERED: FOLIC ACID 5 MG/1 ML 10ML MDV ONE (21:44)
[2020-02-24 21:51] LABS: CREATININE 0.6 mg/dL (0.6-1.2)
[2020-02-24 22:41] VITALS: BP 118/68
== END 2020-02-25 00:35 | disposition home or self-care (01) ==
LOC: EDUNIT# → ED 20:59
DX: F10.20 Alcohol dependence, uncomplicated (principal); Z66 Do not resuscitate
CPT/HCPCS: 36415; 80048; 85025; 96365; 96366; 99283; 99284; J3411; 80320

== ENCOUNTER 2020-02-29 16:24 | Outpatient (CLI) | payer MEDICARE, MEDICAID | END 2020-02-29 16:25 | disposition EMS.NT | LOC: EMS 16:24 | PROVIDERS: ATTEND Surgery | DX: Z76.89 Persons encountering health services in other specified circumstances (principal) ==

== ENCOUNTER 2020-03-23 12:02 | Outpatient (CLI) | payer MEDICARE, MEDICAID ==
[2020-03-23] MEDS ORDERED: IOVERSOL 320 100 ML VIAL IVP ONE ×2 (12:24→14:09)
[2020-03-23] MEDS ORDERED: IOVERSOL 320 50 ML VIAL ONE (12:24)
[2020-03-23] MEDS ORDERED: IOVERSOL 320 50 ML VIAL PO ONE (14:10)
--- NOTE | 2020-03-23 15:03 | CT Report ---
PROCEDURE: Abdomen/Pelvis W INDICATIONS: CHRONIC PANCREATITIS CONTRAST: IV CONTRAST: Optiray 320 ml: 100 PO CONTRAST: Optiray 320 ml50 TECHNIQUE: After the administration of 100 cc Optiray 320 IV contrast, 5 mm thick sections acquired from the kaylen phragms to the symphysis. 5 mm thick coronal and sagittal reformats were acquired. For radiation do se reduction, the following was used: automated exposure control, adjustment of mA and/or kV accordi ng to patient size. COMPARISON: 01/17/2020 FINDINGS: Image quality: Excellent. ABDOMEN: Lung bases: Lung bases are clear. Heart size is normal. Solid organs: Liver and spleen are normal in size and enhancement. Gallbladder contains a trace amanda unt of dependent radiodense material at the gallbladder fundus. Biliary system is non dilated. Panc reas is diminutive without evidence of peripancreatic inflammation, and it enhances normally. No mcrae creatic calcifications. No adrenal nodules. Kidneys demonstrate normal size and enhancement, without hydronephrosis. Peritoneum and bowel: There is persistent focal subserosal fluid collection along the gastric wall l luis armando curvature, but to a much lesser extent compared to prior. This fluid collection measures about 2.5 x 1.1 cm, previously measuring at least 5.9 cm. Small bowel loops are normal. There is a normal a ppendix. Transverse colon is decompressed or in spasm. There is distal descending and proximal sigmoi d diverticulosis without acute diverticulitis. No free fluid or air. Nodes and vessels: No retroperitoneal or mesenteric adenopathy by size criteria. Aorta and inferior vena cava are normal in size. Miscellaneous: No ventral hernias. PELVIS: Genitourinary: Bladder wall thickness is normal. Normal size prostate gland. Miscellaneous: No adenopathy. Tiny fat-containing left inguinal hernia. Bones: No suspicious bony lesions. Right hip prosthesis. Degenerative disc disease at the L3-4 leve l. No vertebral body compression fractures. IMPRESSION: 1. Significant interval improvement in gastric intramural abscesses. A small subserosal fluid collect ion measures 2.5 x 1.1 cm. 2. Cholelithiasis. 3. Diminutive pancreas without other changes of acute pancreatitis. 4. Diverticulosis without acute diverticulitis. Reviewed by: Kezia Narayanan MD on 03/23/2020 3:02 PM PDT Approved by: Kezia Narayanan MD on 03/23/2020 3:02 PM PDT Station ID: [id number]
== END 2020-03-23 12:03 | disposition home or self-care (01) ==
LOC: DI 12:02
PROVIDERS: ATTEND Family Medicine
DX: K86.1 Other chronic pancreatitis (principal); R18.8 Other ascites; K80.20 Calculus of gallbladder without cholecystitis without obstruction
CPT/HCPCS: 74177; Q9967

== ENCOUNTER 2020-03-23 21:18 | Outpatient (CLI) | payer MEDICARE, MEDICAID | END 2020-03-23 21:19 | disposition critical access hospital (66) | LOC: EMS 21:18 | PROVIDERS: ATTEND Surgery | DX: H53.2 Diplopia (principal); R44.0 Auditory hallucinations | CPT/HCPCS: A0425; A0429 ==

== ENCOUNTER 2020-03-23 21:34 | Emergency (ER) | payer MEDICARE, MEDICAID ==
[2020-03-23] MEDS ORDERED: FOLIC ACID INJ 1 MG, THIAMINE INJ 100 MG, MAGNESIUM SULFATE 2 GM, MULTIVITAMIN 10 ML in... IV STA ×5 (21:50)
[2020-03-23] MEDS ORDERED: MAGNESIUM SULFATE 1 GM/2 ML VIAL ONE (22:07)
[2020-03-23] MEDS ORDERED: THIAMINE 100 MG/1 ML 2 ML MDV ONE (22:07)
[2020-03-23] MEDS ORDERED: FOLIC ACID 5 MG/1 ML 10ML MDV ONE (22:07)
[2020-03-23 22:16] LABS: MUDS CUTOFF CONCENTRATIONS CUTOFF CONC BELOW:
[2020-03-23 22:19] LABS: BILIRUBIN,URINE NEGATIVE (NEGATIVE); GLUCOSE, URINE (UA) NEGATIVE (NEGATIVE); KETONES,URINE (UA) NEGATIVE (NEGATIVE); LEUKOCYTE ESTERASE, URINE NEGATIVE (NEGATIVE); NITRITE,URINE NEGATIVE (NEGATIVE); OCCULT BLOOD,URINE NEGATIVE (NEGATIVE); PH,URINE 5.5 PH (5.0-7.5); PROTEIN,URINE NEGATIVE (NEGATIVE); UROBILINOGEN,URINE 0.2 (NORMAL) E.U./dL (NORMAL)
[2020-03-23 22:21] LABS: CLARITY,URINE CLEAR (CLEAR)
[2020-03-23 22:25] LABS: EOSINOPHILS % (AUTO) 1.7 %
[2020-03-23 22:28] LABS: AMPHETAMINE SCREEN,URINE NEGATIVE (NEGATIVE); BENZODIAZEPINES SCREEN, URINE POSITIVE (NEGATIVE); COCAINE SCREEN URINE NEGATIVE (NEGATIVE); METHADONE SCREEN, URINE NEGATIVE (NEGATIVE); METHAMPHETAMINES SCREEN, URINE NEGATIVE (NEGATIVE); OPIATE SCREEN, URINE NEGATIVE (NEGATIVE); OXYCODONE SCREEN, URINE NEGATIVE (NEGATIVE); PROPOXYPHENE SCREEN, URINE NEGATIVE (NEGATIVE); TRICYCLIC ANTIDEPRESSANT,URINE NEGATIVE (NEGATIVE)
[2020-03-23 22:29] LABS: BASOPHILS # (AUTO) 0.1 10^3/uL (0.0-0.1); BASOPHILS % (AUTO) 0.7 %; EOSINOPHILS # (AUTO) 0.1 10^3/uL (0.0-0.7); HGB - HEMOGLOBIN 14.2 g/dL (14.0-18.0); LYMPHOCYTES # (AUTO) 2.7 10^3/uL (1.5-3.5); LYMPHOCYTES % (AUTO) 38.8 %; MEAN CORPUSCULAR HEMOGLOBIN 34.2 pg (27.0-31.0); MEAN CORPUSCULAR HGB CONC 34.6 g/dL (32.0-36.0); MEAN CORPUSCULAR VOLUME 98.8 fL (80.0-94.0); MONOCYTES # (AUTO) 0.5 10^3/uL (0.0-1.0); MONOCYTES % (AUTO) 7.7 %; NEUTROPHILS # (AUTO) 3.5 10^3/uL (1.5-6.6); NEUTROPHILS % (AUTO) 50.7 %; PT - PROTHROMBIN TIME 11.1 secs (9.9-12.6); RED BLOOD COUNT 4.15 10^6/uL (4.70-6.10); RED CELL DISTRIBUTION WIDTH 13.1 % (12.0-15.0); WHITE BLOOD COUNT 6.9 x10^3/uL (4.8-10.8)
[2020-03-23 22:36] LABS: PARTIAL THROMBOPLASTIN TIME 19.7 secs (24.9-33.3)
[2020-03-23 22:40] LABS: ALBUMIN 4.8 g/dL (3.2-5.5); ALBUMIN/GLOBULIN RATIO 1.2 (1.0-2.2); BILIRUBIN,TOTAL 0.3 mg/dL (0.2-1.0); CALCIUM 9.7 mg/dL (8.5-10.3); CREATININE 0.9 mg/dL (0.6-1.2); PHOSPHORUS 4.3 mg/dL (2.5-4.6); TOTAL PROTEIN 8.7 g/dL (6.7-8.2)
--- NOTE | 2020-03-23 22:47 | ED Physician Documentation ---
History of Present Illness - Stated complaint Stated Complaint: DOUBLE VISION, HALLUCINATIONS - Chief complaint Chief Complaint: Abd Pain - History obtained from History obtained from: Patient, EMS - History of Present Illness Timing: How many weeks ago (1) Pain level now: 0 Improved by: nothing Worsened by: no exacerbating factors - Additonal information Additional information: patient's chief complaint is double vision that only manifests when looking laterally (either direction). He says this has been ongoing since last week when he tripped and fell and struck his head. He says he had LOC when he fell. He says he did not seek medical attention until tonight because his mother insisted he do so. He also has c/o epigastric burning pain Review of Systems Constitutional: denies: Fever, Chills, Sweats Eyes: reports: Other (diplopia with lateral gaze). denies: Loss of vision, Decreased vision, Photophobia Ears: denies: Tinnitus/ringing Cardiac: reports: Reviewed and negative Respiratory: reports: Reviewed and negative GI: reports: Abdominal Pain, Nausea. denies: Vomiting Musculoskeletal: denies: Neck pain, Back pain, Extremity pain Neurologic: reports: Head injury, LOC. denies: Generalized weakness, Focal weakness, Numbness, Headache PD PAST MEDICAL HISTORY - Past Medical History Past Medical History: Yes Cardiovascular: Hypertension, High cholesterol Respiratory: Sleep apnea, CPAP use Neuro: Headaches, Other Endocrine/Autoimmune: None, Other GI: GERD, Pancreatitis, Cirrhosis : Incontinence HEENT: None Psych: Depression, Anxiety, Panic attacks, Claustrophobia Musculoskeletal: Osteoarthritis Derm: None - Past Surgical History Past Surgical History: Yes Ortho: Hip replacement, Arthroscopic surgery HEENT: Tracheostomy - Present Medications Home Medications: Ambulatory Orders Medication Instructions Recorded Confirmed Thiamine HCl [Vitamin B-1] 100 mg PO DAILY #30 tablet 08/17/18 01/17/20 Furosemide [Lasix] 40 mg PO DAILY 08/19/19 01/17/20 Cholecalciferol [Vitamin D3] 1,000 units PO DAILY 01/17/20 01/17/20 Gabapentin [Neurontin] 600 mg PO TID 01/17/20 01/17/20 Lactulose 30 gm PO TID 01/17/20 01/17/20 Multivitamin W/Minerals [Theragran 1 each PO DAILY 01/17/20 01/17/20 M] Omeprazole 20 mg PO BIDAC 01/17/20 01/17/20 Propranolol [Inderal] 30 mg PO BID 01/17/20 01/17/20 Sucralfate [Carafate] 1 gm PO BIDAC 01/17/20 01/17/20 Tamsulosin [Flomax] 0.4 mg PO DAILY 01/17/20 01/17/20 buPROPion [Wellbutrin Sr] 150 mg PO DAILY #30 tablet 02/21/20 - Allergies Allergies/Adverse Reactions: Allergies Allergy/AdvReac Type Severity Reaction Status Date / Time lisinopril Allergy Mild Anaphylaxis Verified 03/23/20 21:40 - Social History Does the pt smoke?: No Smoking Status: Never smoker Does the pt drink ETOH?: Yes Does the pt have substance abuse?: Yes - Immunizations Immunizations are current?: Yes Immunizations: Other immun not current - POLST Patient has POLST: No POLST Status: DNR (pt clearly state to me it is DNR, Pt's mother at the bedside did not say no.) PD ED PE NORMAL - Vitals Vital signs reviewed: Yes - General General: 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, No acute distress, Well developed/nourished - HEENT HEENT: Atraumatic, PERRL, EOMI, Moist mucous membranes, Other (few beats of nystagmus with lateral gaze either direction) - Neck Neck: No bony TTP - Cardiac Cardiac: RRR, No murmur - Respiratory Respiratory: No respiratory distress, Clear bilaterally - Abdomen Abdomen: Soft, Non tender - Neuro Neuro: 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, 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, No motor deficit, No sensory deficit, Normal speech Eye Opening: Spontaneous Motor: Obeys Commands Verbal: Oriented GCS Score: 15 Results - Vitals Vitals: Vital Signs - 24 hr 03/23/20 03/23/20 03/23/20 21:37 21:51 23:40 Temperature 36.5 C 36.5 C 36.6 C Heart Rate 82 82 82 Respiratory 17 17 16 Rate Blood Pressure 119/91 H 119/91 H 120/90 H O2 Saturation 100 100 100 03/24/20 00:58 Temperature Heart Rate 79 Respiratory 16 Rate Blood Pressure 114/68 O2 Saturation 99 Oxygen O2 Source Room air - Labs Labs: Laboratory Tests 03/23/20 03/23/20 03/23/20 22:00 22:15 22:15 WBC 6.9 RBC 4.15 L Hgb 14.2 Hct 41.0 L MCV 98.8 H MCH 34.2 H MCHC 34.6 RDW 13.1 Plt Count TNP MPV 10.0 Neut # (Auto) 3.5 Lymph # (Auto) 2.7 [place] # (Auto) 0.5 Eos # (Auto) 0.1 Baso # (Auto) 0.1 Absolute Nucleated RBC 0.00 Nucleated RBC % 0.0 Platelet Estimate NORMAL (130-450,000) Platelet Morphology PLATELET CLUMPING RBC Morph Micro Appear NORMAL APPEARANCE PT 11.1 INR 1.0 APTT 19.7 L Sodium Potassium Chloride Carbon Dioxide Anion Gap BUN Creatinine Estimated GFR (MDRD) Glucose Calcium Phosphorus Magnesium Total Bilirubin AST ALT Alkaline Phosphatase Total Protein Albumin Globulin Albumin/Globulin Ratio Lipase TSH Urine Color YELLOW Urine Clarity CLEAR Urine pH 5.5 Ur Specific [place] <=1.005 Urine Protein NEGATIVE Urine Glucose (UA) NEGATIVE Urine Ketones NEGATIVE Urine Occult Blood NEGATIVE Urine Nitrite NEGATIVE Urine Bilirubin NEGATIVE Urine Urobilinogen 0.2 (NORMAL) Ur Leukocyte Esterase NEGATIVE Ur Microscopic Review NOT INDICATED Urine Culture Comments NOT INDICATED Urine Opiates Screen NEGATIVE Ur Oxycodone Screen NEGATIVE Urine Methadone Screen NEGATIVE Ur Propoxyphene Screen NEGATIVE Ur Barbiturates Screen NEGATIVE Ur Tricyclics Screen NEGATIVE Ur Phencyclidine Scrn NEGATIVE Ur Amphetamine Screen NEGATIVE U Methamphetamines Scrn NEGATIVE U Benzodiazepines Scrn POSITIVE H Urine Cocaine Screen NEGATIVE U Cannabinoids Screen NEGATIVE Ethyl Alcohol 03/23/20 03/23/20 22:15 22:15 WBC RBC Hgb Hct MCV MCH MCHC RDW Plt Count MPV Neut # (Auto) Lymph # (Auto) [place] # (Auto) Eos # (Auto) Baso # (Auto) Absolute Nucleated RBC Nucleated RBC % Platelet Estimate Platelet Morphology RBC Morph Micro Appear PT INR APTT Sodium 132 L Potassium 3.4 L Chloride 90 L Carbon Dioxide 26 Anion Gap 16.0 H BUN 13 Creatinine 0.9 Estimated GFR (MDRD) 87 L Glucose 94 Calcium 9.7 Phosphorus 4.3 Magnesium 2.0 Total Bilirubin 0.3 AST 33 ALT 19 Alkaline Phosphatase 93 Total Protein 8.7 H Albumin 4.8 Globulin 3.9 Albumin/Globulin Ratio 1.2 Lipase 18 L TSH 2.70 Urine Color Urine Clarity Urine pH Ur Specific [place] Urine Protein Urine Glucose (UA) Urine Ketones Urine Occult Blood Urine Nitrite Urine Bilirubin Urine Urobilinogen Ur Leukocyte Esterase Ur Microscopic Review Urine Culture Comments Urine Opiates Screen Ur Oxycodone Screen Urine Methadone Screen Ur Propoxyphene Screen Ur Barbiturates Screen Ur Tricyclics Screen Ur Phencyclidine Scrn Ur Amphetamine Screen U Methamphetamines Scrn U Benzodiazepines Scrn Urine Cocaine Screen U Cannabinoids Screen Ethyl Alcohol 327.1 - Rads (name of study) CT head Radiology: Prelim report reviewed, See rad report PD MEDICAL DECISION MAKING - ED course Complexity details: reviewed results, re-evaluated patient, considered differential, d/w patient ED course: early in stay, patient wanted to leave but was agreeable to completing IV banana bag and my recommendation for blood tests and CT head. These results were not notable for emergently concerning findings; significantly elevated alcohol level noted, which is expected given that patient is an alcoholic and admits to drinking tonight. Departure - Departure Disposition: 01 Home, Self Care Clinical Impression: Alcohol abuse Condition: Good Instructions: ED Double Vision, ED Alcohol Intoxication, ED Alcohol Abuse Follow-Up: VINCENZO BANKS MD [Primary Care Provider] - Within 3 Days Discharge Date/Time: 03/24/20 00:45
[2020-03-23 22:48] LABS: PLATELET ESTIMATE, MANUAL NORMAL (130-450,000) (NORMAL); PLATELET MORPHOLOGY PLATELET CLUMPING (NORMAL); RBC MORPHOLOGY (MULTIPLE) NORMAL APPEARANCE (NORMAL)
[2020-03-24] MEDS ORDERED: MAG HYDROX/AL HYDROX/SIMETH 30 ML UDC PO STA (00:04)
[2020-03-24] MEDS ORDERED: LIDOCAINE VISCOUS 2% 15 ML UDC MM STA (00:04)
[2020-03-24] MEDS ORDERED: FAMOTIDINE 20 MG TABLET PO STA (00:05)
[2020-03-24 00:58] VITALS: BP 114/68
--- NOTE | 2020-03-24 08:37 | CT Report ---
PROCEDURE: HEAD WO INDICATIONS: visual changes after head injury TECHNIQUE: Noncontrast 4.5 mm thick angled axial sections acquired from the foramen magnum to the vertex. For r adiation dose reduction, the following was used: automated exposure control, adjustment of mA and/or kV according to patient size. COMPARISON: Prior head CT examinations 06/14/2019, 03/25/2019, 11/25/2018. Correlation is also made wi th prior brain MRI 04/03/2017 FINDINGS: Image quality: Excellent. CSF spaces: Basal cisterns are patent. No extra-axial fluid collections. Ventricles are normal in size and shape. Brain: No midline shift. No intracranial masses or hemorrhage. Muhammad-white matter interface is norm al. Minimal hypodense foci can be seen within the periventricular and deep white matter. Mild brain p arenchymal volume loss is seen. Skull and face: Calvarium and visualized facial bones are intact, without suspicious lesions. Sinuses: Visualized sinuses and mastoids are clear. IMPRESSION: No significant intracranial abnormality is seen. No intracranial hemorrhage is seen. Minimal hypodense foci can be seen within the periventricular and deep white matter. These are statis tically most likely related to premature chronic small vessel ischemic change in a patient of this ag e. Mild brain parenchymal volume loss is seen. Please correlate with known patient history. If clinically appropriate, please consider a follow-up MRI (without and with contrast) for further e valuation (assuming that there is no contraindication). Note: No significant discrepancy from the preliminary report. Reviewed by: Billy Antunez MD on 03/24/2020 7:35 AM RACHID Approved by: Billy Antunez MD on 03/24/2020 7:35 AM RACHID Station ID: [id number]
== END 2020-03-24 00:45 | disposition home or self-care (01) ==
LOC: EDUNIT# → ED 21:34
DX: F10.10 Alcohol abuse, uncomplicated (principal); Y90.7 Blood alcohol level of 200-239 mg/100 ml; Z66 Do not resuscitate; K86.1 Other chronic pancreatitis; R18.8 Other ascites; K80.20 Calculus of gallbladder without cholecystitis without obstruction
CPT/HCPCS: 36415; 70450; 74177; 80053; 80306; 81003; 83690; 83735; 84100; 84443; 85025; 85610; 85730; 96374; 99284; A9270; J3411; Q9967; 80320; 81001; 87086

== ENCOUNTER 2020-04-24 16:22 | Outpatient (CLI) | payer MEDICARE, MEDICAID | END 2020-04-24 16:23 | disposition critical access hospital (66) | LOC: EMS 16:22 | PROVIDERS: ATTEND Surgery | DX: M25.551 Pain in right hip (principal) | CPT/HCPCS: A0425; A0429 ==

== ENCOUNTER 2020-04-24 16:41 | Emergency (ER) | payer MEDICARE, MEDICAID ==
--- NOTE | 2020-04-24 16:51 | ED Physician Documentation ---
PD HPI Fall - Stated complaint Stated Complaint: HBD - Chief complaint Chief Complaint: Trauma Ext - History obtained from History obtained from: Patient, EMS - History of Present Illness Mechanism of injury: Lost balance Fall distance: Standing position (Reportedly the patient had been drinking heavily which is not unusual for him, lost balance and fell and struck his head and neck. He is having some pain in the right chest and right hip as well. He was brought in by EMS. Not clear who had called EMS.) Where injury occurred: Street Timing - onset: Today Injury(ies) location: Head, Neck, Chest (right lateral area), Right Lower Extremity (pain lateral right hip) Quality of pain: Aching Associated symptoms: AMS (c/w intoxication, with slowed speech and answers, but still oriented.). No: LOC Worsens with: Palpation Contributing factors: Intoxicated. No: Anticoagulated Similar symptoms before: Diagnosis (history of alcoholism and falls often.) Review of Systems Constitutional: denies: Fever Nose: denies: Rhinorrhea / runny nose, Congestion Throat: denies: Sore throat Respiratory: denies: Cough GI: reports: Abdominal Pain (for few days, mid to upper abd.). denies: Vomiting, Diarrhea, Bloody / black stool Skin: denies: Abrasion (s), Laceration (s) Neurologic: reports: Headache. denies: Focal weakness, Numbness PD PAST MEDICAL HISTORY - Past Medical History Cardiovascular: Hypertension, High cholesterol Respiratory: Sleep apnea, CPAP use Neuro: Headaches, Other Endocrine/Autoimmune: None, Other GI: GERD, Pancreatitis, Cirrhosis : Incontinence HEENT: None Psych: Depression, Anxiety, Panic attacks, Claustrophobia Musculoskeletal: Osteoarthritis Derm: None - Past Surgical History Past Surgical History: Yes Ortho: Hip replacement, Arthroscopic surgery HEENT: Tracheostomy - Present Medications Home Medications: Ambulatory Orders Medication Instructions Recorded Confirmed Thiamine HCl [Vitamin B-1] 100 mg PO DAILY #30 tablet 08/17/18 01/17/20 Furosemide [Lasix] 40 mg PO DAILY 08/19/19 01/17/20 Cholecalciferol [Vitamin D3] 1,000 units PO DAILY 01/17/20 01/17/20 Gabapentin [Neurontin] 600 mg PO TID 01/17/20 01/17/20 Lactulose 30 gm PO TID 01/17/20 01/17/20 Multivitamin W/Minerals [Theragran 1 each PO DAILY 01/17/20 01/17/20 M] Omeprazole 20 mg PO BIDAC 01/17/20 01/17/20 Propranolol [Inderal] 30 mg PO BID 01/17/20 01/17/20 Sucralfate [Carafate] 1 gm PO BIDAC 01/17/20 01/17/20 Tamsulosin [Flomax] 0.4 mg PO DAILY 01/17/20 01/17/20 buPROPion [Wellbutrin Sr] 150 mg PO DAILY #30 tablet 02/21/20 - Allergies Allergies/Adverse Reactions: Allergies Allergy/AdvReac Type Severity Reaction Status Date / Time lisinopril Allergy Mild Anaphylaxis Verified 04/24/20 16:47 - Living Situation Living Arrangement: reports: At home - Social History Does the pt smoke?: No Smoking Status: Never smoker Does the pt drink ETOH?: Yes Does the pt have substance abuse?: Yes - Immunizations Immunizations are current?: Yes Immunizations: Other immun not current - POLST Patient has POLST: No POLST Status: DNR (pt clearly state to me it is DNR, Pt's mother at the bedside did not say no.) PD ED PE NORMAL - Vitals Vital signs reviewed: Yes - General General: Well developed/nourished, Other (arrives in collar. No apparent distress. Slow to answer questions but still oriented. ) - HEENT HEENT: Other (tender right parietal area with mild soft tissue swelling. ) - Neck Neck: Supple, no meningeal sign, No adenopathy, Other (some tender lower cervical area without defromity. ) - Cardiac Cardiac: RRR, No murmur - Respiratory Respiratory: Clear bilaterally, Other (right lateral chestwall tenderness without crepitance nor deformity. ) - Abdomen Abdomen: Normal bowel sounds, Soft, Non distended, No organomegaly, Other (tender mid to right abdomen with mild guarding upper right. No distension. ) - Back Back: No CVA TTP, No spinal TTP - Derm Derm: Normal color, Warm and dry - Extremities Extremities: Other (right hip with surgical scar c/w replacement. Flexes and extends slowly. No gross defromity. Extremities otherwise without tenderness. ) - Neuro Neuro: 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, No motor deficit, Normal speech Results - Vitals Vitals: Vital Signs - 24 hr 04/24/20 04/24/20 04/24/20 16:47 17:30 18:30 Temperature 36.5 C Heart Rate 80 77 84 Respiratory 16 10 L 13 Rate Blood Pressure 121/95 H 121/88 H 113/84 H O2 Saturation 97 93 95 04/24/20 19:27 Temperature 36.5 C Heart Rate 81 Respiratory 15 Rate Blood Pressure 113/84 H O2 Saturation 97 Oxygen O2 Source Room air - Labs Labs: Laboratory Tests 04/24/20 04/24/20 17:35 17:35 WBC 5.5 RBC 4.20 L Hgb 14.4 Hct 40.0 L MCV 95.2 H MCH 34.3 H MCHC 36.0 RDW 13.2 Plt Count 332 MPV 8.6 Neut # (Auto) 2.4 Lymph # (Auto) 2.2 [place] # (Auto) 0.8 Eos # (Auto) 0.0 Baso # (Auto) 0.1 Absolute Nucleated RBC 0.00 Nucleated RBC % 0.0 Sodium 137 Potassium 3.7 Chloride 86 L Carbon Dioxide 27 Anion Gap 24.0 H BUN 11 Creatinine 0.8 Estimated GFR (MDRD) 100 Glucose 96 Calcium 9.9 Magnesium 1.8 Total Bilirubin 0.7 AST 42 ALT 23 Alkaline Phosphatase 93 Total Protein 8.4 H Albumin 4.8 Globulin 3.6 Albumin/Globulin Ratio 1.3 Lipase 19 L Ethyl Alcohol 374.0 - Rads (name of study) cervical CT Radiology: Prelim report reviewed (no noted acute fractures. ), See rad report heac CT Radiology: Prelim report reviewed (no ICH), See rad report right hip Radiology: Prelim report reviewed (prior replacement/repair without new fracture nor dislocation), See rad report chest xray Radiology: Prelim report reviewed, EMP read contemporaneously (prior left rib fractures, healed. No noted right fractures nor PTX. ), See rad report PD MEDICAL DECISION MAKING - ED course Complexity details: re-evaluated patient (he is able to get up and walk okay. His mother called and said she could come pick him up soon, by about 7:30 pm.), d/w patient Departure - Departure Disposition: 01 Home, Self Care Clinical Impression: Acute strain of neck muscle Qualifiers: Encounter type: initial encounter Qualified Code(s): S16.1XXA - Strain of muscle, fascia and tendon at neck level, initial encounter Head contusion Qualifiers: Encounter type: initial encounter Contusion of head detail: scalp Qualified Code(s): S00.03XA - Contusion of scalp, initial encounter Contusion, hip Qualifiers: Encounter type: initial encounter Laterality: right Qualified Code(s): S70.01XA - Contusion of right hip, initial encounter Chest wall contusion Qualifiers: Encounter type: initial encounter Laterality: right Qualified Code(s): S20.211A - Contusion of right front wall of thorax, initial encounter Alcohol intoxication Qualifiers: Complication of substance-induced condition: uncomplicated Qualified Code(s): F10.920 - Alcohol use, unspecified with intoxication, uncomplicated Fall from slip, trip, or stumble Qualifiers: Encounter type: initial encounter Qualified Code(s): W01.0XXA - Fall on same level from slipping, tripping and stumbling without subsequent striking against object, initial encounter Abdominal pain Qualifiers: Abdominal location: right upper quadrant Qualified Code(s): R10.11 - Right upp er quadrant pain Condition: Stable Record reviewed to determine appropriate education?: Yes Follow-Up: VINCENZO BANKS MD [Primary Care Provider] - Comments: Try to avoid alcohol or at least moderation in its use. Your CT scans and x- rays do not show any fractures or bleeding. You will be sore however from falling and injuring. Tylenol every 4-6 hours if needed for pains. Use antacid such as Maalox or Mylanta for your stomach. Continue usual medications. Discharge Date/Time: 04/24/20 19:35
[2020-04-24] MEDS ORDERED: ACETAMINOPHEN 325 MG TABLET PO STA (16:58)
[2020-04-24] MEDS ORDERED: LACTATED RINGERS 1,000 ML IV STA (16:58)
[2020-04-24] MEDS ORDERED: KETOROLAC 30 MG/ML VIAL IVP STA (16:58)
[2020-04-24 17:44] LABS: BASOPHILS # (AUTO) 0.1 10^3/uL (0.0-0.1); BASOPHILS % (AUTO) 1.1 %; EOSINOPHILS % (AUTO) 0.7 %; HGB - HEMOGLOBIN 14.4 g/dL (14.0-18.0); LYMPHOCYTES # (AUTO) 2.2 10^3/uL (1.5-3.5); LYMPHOCYTES % (AUTO) 40.4 %; MEAN CORPUSCULAR HEMOGLOBIN 34.3 pg (27.0-31.0); MEAN CORPUSCULAR VOLUME 95.2 fL (80.0-94.0); MEAN PLATELET VOLUME 8.6 fL (7.4-11.4); MONOCYTES # (AUTO) 0.8 10^3/uL (0.0-1.0); MONOCYTES % (AUTO) 14.1 %; NEUTROPHILS # (AUTO) 2.4 10^3/uL (1.5-6.6); NEUTROPHILS % (AUTO) 43.2 %; PLT - PLATELET COUNT 332 10^3/uL (130-450); RED CELL DISTRIBUTION WIDTH 13.2 % (12.0-15.0); WHITE BLOOD COUNT 5.5 x10^3/uL (4.8-10.8)
--- NOTE | 2020-04-24 17:44 | CT Report ---
PROCEDURE: CERVICAL SPINE WO INDICATIONS: fall with head and neck pain; intoxicated TECHNIQUE: Noncontrast 3 mm thick sections acquired from the skull base to the T4 level. Sagittal and coronal r eformats were then constructed. For radiation dose reduction, the following was used: automated exp osure control, adjustment of mA and/or kV according to patient size. COMPARISON: None. FINDINGS: Image quality: Excellent. Bones: No fractures or dislocations. Visualized superior ribs are intact. Moderately severe degene rative disc disease along the cervical spine with convex leftward scoliosis of the mid cervical spine and [id number] endplate articulation seen at C3-4 and present to a slightly lesser degree at the 3 levels below. Soft tissues: Prevertebral soft tissues are normal in thickness. No paravertebral hematomas. No ap ical pneumothoraces. IMPRESSION: No acute trauma found. Moderately severe to severe degenerative disc disease with convex leftward sco liosis and [id number] articulation between adjacent endplates at C3-C4. Reviewed by: Ciro Gomez MD on 04/24/2020 5:42 PM PST Approved by: Ciro Gomez MD on 04/24/2020 5:42 PM PST Station ID: [id number]
--- NOTE | 2020-04-24 17:44 | XRAY Report ---
PROCEDURE: Chest 1 View X-Ray INDICATIONS: fall with right lateral chest tender TECHNIQUE: One view of the chest was acquired. COMPARISON: Old healed right lateral rib fractures noted, no acute trauma found. FINDINGS: Surgical changes and devices: None. Lungs and pleura: No pleural effusions or pneumothorax. Lungs are clear. Mediastinum: Mediastinal contours appear normal. Heart size is normal. Bones and chest wall: No suspicious bony lesions. Overlying soft tissues appear unremarkable. IMPRESSION: Old right lateral rib fractures found but chronic in appearance and well healed. No acute trauma seen . Reviewed by: Ciro Gomez MD on 04/24/2020 5:43 PM PST Approved by: Ciro Gomez MD on 04/24/2020 5:43 PM PST Station ID: [id number]
--- NOTE | 2020-04-24 17:45 | CT Report ---
PROCEDURE: HEAD WO INDICATIONS: fal with head/neck pain; intoxicated TECHNIQUE: Noncontrast 4.5 mm thick angled axial sections acquired from the foramen magnum to the vertex. For r adiation dose reduction, the following was used: automated exposure control, adjustment of mA and/or kV according to patient size. COMPARISON: Prior head CT 03/23/2020. FINDINGS: Image quality: Excellent. CSF spaces: Basal cisterns are patent. No extra-axial fluid collections. Ventricles are normal in size and shape. Brain: No midline shift. No intracranial masses or hemorrhage. Muhammad-white matter interface is norm al. Skull and face: Calvarium and visualized facial bones are intact, without suspicious lesions. Sinuses: Visualized sinuses and mastoids are clear. IMPRESSION: No acute trauma found. Reviewed by: Ciro Gomez MD on 04/24/2020 5:44 PM PST Approved by: Ciro Gomez MD on 04/24/2020 5:44 PM PST Station ID: [id number]
--- NOTE | 2020-04-24 17:48 | XRAY Report ---
PROCEDURE: Hip w/Pelvis 2-3V RT INDICATIONS: fall with right hip pain TECHNIQUE: AP pelvis with lateral view(s) of the right hip(s). COMPARISON: Scanogram from CT scanning performed through the abdomen/pelvis that included the proxim al femurs dated 03/23/2020 reviewed.. FINDINGS: Bones: No ventral fractures or dislocations. The prior CT scanning had shown the equivalent distort ion of the proximal right femur where a right hip arthroplasty is present with cerclage wires and dis placed bone fragments, chronic in appearance. No new bone fragments are found. Nonunion fracture like ly is present, chronic, at the proximal right femoral diaphysis. At least one of the cerclage wires a ppears to be fractured, as was previously the case. Pelvic ring appears intact. No suspicious bony l esions. Soft tissues: The visualized bowel gas pattern is normal. No suspicious soft tissue calcifications. 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 No new distortion o f the arthroplasty, cerclage wires or visualized proximal femur is seen on the right. Reviewed by: Ciro Gomez MD on 04/24/2020 5:46 PM PST Approved by: Ciro Gomez MD on 04/24/2020 5:46 PM PST Station ID: [id number]
[2020-04-24 17:58] LABS: ALBUMIN 4.8 g/dL (3.2-5.5); ALBUMIN/GLOBULIN RATIO 1.3 (1.0-2.2); BILIRUBIN,TOTAL 0.7 mg/dL (0.2-1.0); CALCIUM 9.9 mg/dL (8.5-10.3); CREATININE 0.8 mg/dL (0.6-1.2); MAGNESIUM 1.8 mg/dL (1.7-2.8); TOTAL PROTEIN 8.4 g/dL (6.7-8.2)
[2020-04-24 18:37] VITALS: BP 113/84
== END 2020-04-24 19:35 | disposition home or self-care (01) ==
LOC: EDUNIT# → ED 16:41
DX: S16.1XXA Strain of muscle, fascia and tendon at neck level, initial encounter (principal); S00.03XA Contusion of scalp, initial encounter; S70.01XA Contusion of right hip, initial encounter; S20.211A Contusion of right front wall of thorax, initial encounter; W18.39XA Other fall on same level, initial encounter; Y92.410 Unspecified street and highway as the place of occurrence of the external cause; R10.11 Right upper quadrant pain; F10.129 Alcohol abuse with intoxication, unspecified; I10 Essential (primary) hypertension; Z66 Do not resuscitate
CPT/HCPCS: 36415; 70450; 71045; 72125; 73502; 80053; 83690; 83735; 85025; 96361; 96374; 99284; A9270; J7120; 80320

== ENCOUNTER 2020-05-11 22:30 | Outpatient (CLI) | payer MEDICARE, MEDICAID | END 2020-05-11 22:31 | disposition critical access hospital (66) | LOC: EMS 22:30 | PROVIDERS: ATTEND Surgery | DX: R09.2 Respiratory arrest (principal) | CPT/HCPCS: A0425; A0427 ==

== ENCOUNTER 2020-05-11 22:48 | Emergency (ER) | payer MEDICARE, MEDICAID ==
[2020-05-11] MEDS ORDERED: NALOXONE 0.4 MG/ML VIAL IVP STA (22:57)
[2020-05-11] MEDS ORDERED: FOLIC ACID INJ 1 MG, THIAMINE INJ 100 MG, MAGNESIUM SULFATE 2 GM, MULTIVITAMIN 10 ML in... IV STA ×5 (22:59)
[2020-05-11 23:11] LABS: BASOPHILS % (AUTO) 0.8 %; EOSINOPHILS # (AUTO) 0.3 10^3/uL (0.0-0.7); EOSINOPHILS % (AUTO) 5.9 %; HGB - HEMOGLOBIN 12.5 g/dL (14.0-18.0); LYMPHOCYTES # (AUTO) 1.6 10^3/uL (1.5-3.5); MEAN CORPUSCULAR HEMOGLOBIN 34.9 pg (27.0-31.0); MEAN CORPUSCULAR HGB CONC 34.9 g/dL (32.0-36.0); MEAN PLATELET VOLUME 10.5 fL (7.4-11.4); MONOCYTES # (AUTO) 0.9 10^3/uL (0.0-1.0); MONOCYTES % (AUTO) 17.1 %; NEUTROPHILS # (AUTO) 2.2 10^3/uL (1.5-6.6); NEUTROPHILS % (AUTO) 43.6 %; PLT - PLATELET COUNT 142 10^3/uL (130-450); RED BLOOD COUNT 3.58 10^6/uL (4.70-6.10); RED CELL DISTRIBUTION WIDTH 13.5 % (12.0-15.0); WHITE BLOOD COUNT 5.1 x10^3/uL (4.8-10.8)
[2020-05-11] MEDS ORDERED: THIAMINE 100 MG/1 ML 2 ML MDV ONE (23:21)
[2020-05-11] MEDS ORDERED: FOLIC ACID 5 MG/1 ML 10ML MDV ONE (23:21)
[2020-05-11] MEDS ORDERED: MAGNESIUM SULFATE 1 GM/2 ML VIAL ONE (23:21)
[2020-05-11 23:23] LABS: ACETAMINOPHEN < 10 ug/mL (10-30); ALBUMIN 4.2 g/dL (3.2-5.5); ALBUMIN/GLOBULIN RATIO 1.2 (1.0-2.2); ALKALINE PHOSPHATASE 92 IU/L (42-121); ALT ALANINE AMINOTRANSFERASE 26 IU/L (10-60); AST ASPARTATE AMINOTRANSFERASE 51 IU/L (10-42); BILIRUBIN,TOTAL 0.8 mg/dL (0.2-1.0); BUN - BLOOD UREA NITROGEN 33 mg/dL (6-20); CALCIUM 8.9 mg/dL (8.5-10.3); CARBON DIOXIDE - CO2 22 mmol/L (21-32); CHLORIDE 96 mmol/L (101-111); CREATININE 1.1 mg/dL (0.6-1.2); GLUCOSE 179 mg/dL (70-100); LIPASE 26 U/L (22-51); SALICYLATE < 6.0 mg/dL; SODIUM 136 mmol/L (135-145); TOTAL PROTEIN 7.7 g/dL (6.7-8.2)
[2020-05-11 23:27] LABS: PT - PROTHROMBIN TIME 11.3 secs (9.9-12.6)
--- NOTE | 2020-05-12 00:31 | ED Physician Documentation ---
PD HPI SYNCOPE - Stated complaint Stated Complaint: SYNCOPE - Chief complaint Chief Complaint: Neuro - History obtained from History obtained from: Patient - History of Present Illness Witnessed: Witnessed Timing - onset: Enter time (2100) Duration: Minutes Preceding symptoms: Unknown Contributing factors: Recent med change (has added narcotic), Other (hx of alcoholism severe) Injury occurred: Fell (2 weeks ago) Treatment ARMATURE CONNECTOR: Narcan (seemed to help) Similar symptoms before: Diagnosis (narcotic overdose and alcohol intoxication) Recently seen: Emergency Dept - Additional information Additional information: 55-year-old extra tall alcoholic male has recently been to the emergency department for a fall where he injured his ribs again and he has been on some narcotic pain reliever. He has a prior history of overdosing on narcotic pain reliever. He has a history of alcohol intoxication and sometimes severe alcohol intoxication. Tonight he was at his table with his mother when he suddenly slumped over and became unresponsive. Medics noted him to have agonal breathing. They administered Narcan with some improvement. The patient is arousable and does not want to cooperate. He has a prior history of aggressive behavior with intoxication. He is not aggressive tonight. Review of Systems Unable to obtain: AMS, Uncooperative PD PAST MEDICAL HISTORY - Past Medical History Cardiovascular: Hypertension, High cholesterol Respiratory: Sleep apnea, CPAP use Neuro: Headaches, Other Endocrine/Autoimmune: None, Other GI: GERD, Pancreatitis, Cirrhosis : Incontinence HEENT: None Psych: Depression, Anxiety, Panic attacks, Claustrophobia Musculoskeletal: Osteoarthritis Derm: None - Past Surgical History Past Surgical History: Yes Ortho: Hip replacement, Arthroscopic surgery HEENT: Tracheostomy - Present Medications Home Medications: Ambulatory Orders Medication Instructions Recorded Confirmed Thiamine HCl [Vitamin B-1] 100 mg PO DAILY #30 tablet 08/17/18 01/17/20 Furosemide [Lasix] 40 mg PO DAILY 08/19/19 01/17/20 Cholecalciferol [Vitamin D3] 1,000 units PO DAILY 01/17/20 01/17/20 Gabapentin [Neurontin] 600 mg PO TID 01/17/20 01/17/20 Lactulose 30 gm PO TID 01/17/20 01/17/20 Multivitamin W/Minerals [Theragran 1 each PO DAILY 01/17/20 01/17/20 M] Omeprazole 20 mg PO BIDAC 01/17/20 01/17/20 Propranolol [Inderal] 30 mg PO BID 01/17/20 01/17/20 Sucralfate [Carafate] 1 gm PO BIDAC 01/17/20 01/17/20 Tamsulosin [Flomax] 0.4 mg PO DAILY 01/17/20 01/17/20 buPROPion [Wellbutrin Sr] 150 mg PO DAILY #30 tablet 02/21/20 - Allergies Allergies/Adverse Reactions: Allergies Allergy/AdvReac Type Severity Reaction Status Date / Time lisinopril Allergy Mild Anaphylaxis Verified 04/24/20 16:47 - Social History Does the pt smoke?: No Smoking Status: Never smoker Does the pt drink ETOH?: Yes Does the pt have substance abuse?: Yes - Immunizations Immunizations are current?: Yes Immunizations: Other immun not current - POLST Patient has POLST: No POLST Status: DNR (pt clearly state to me it is DNR, Pt's mother at the bedside did not say no.) PD ED PE NORMAL - Vitals Vital signs reviewed: Yes (hypoxia and apnea) - General General: No acute distress, Well developed/nourished, Other (The patient will arouse to excessive stimulation but does not want to cooperate. ) - HEENT HEENT: Atraumatic, PERRL, EOMI, Other (pinpoint pupils ) - Neck Neck: Supple, no meningeal sign, No bony TTP - Cardiac Cardiac: RRR, No murmur - Respiratory Respiratory: No respiratory distress, Clear bilaterally, Other (There is chest wall tenderness to both sides and bruising on the left. No crepitance or deformity. ) - Abdomen Abdomen: Soft, Non tender - Back Back: No CVA TTP, No spinal TTP - Derm Derm: Normal color, Warm and dry, No rash - Extremities Extremities: No deformity, No edema - Neuro Neuro: No motor deficit, No sensory deficit Eye Opening: To Pain Motor: Localizes to Pain Verbal: Confused GCS Score: 11 - Psych Psych: Other (mood is withdrawn and affect is flat. ) Results - Vitals Vitals: Vital Signs - 24 hr 05/11/20 05/11/20 05/12/20 22:48 23:05 00:10 Temperature 36.5 C Heart Rate 87 89 82 Respiratory 10 L 18 17 Rate Blood Pressure 98/68 90/65 94/68 O2 Saturation 89 L 96 97 05/12/20 05/12/20 05/12/20 02:36 03:00 04:00 Temperature Heart Rate 79 75 74 Respiratory 16 14 16 Rate Blood Pressure 97/70 104/80 114/85 H O2 Saturation 98 98 97 05/12/20 05/12/20 05/12/20 04:47 05:00 06:30 Temperature Heart Rate 97 80 80 Respiratory 15 16 16 Rate Blood Pressure 139/100 H 127/100 H 110/76 O2 Saturation 97 98 95 Oxygen O2 Source Room air - EKG (time done) 2259 Rate: Rate (enter#) (89) Intervals: Wide QRS (borderline) QRS: Low voltage Compare to prior EKG: Changed from prior EKG (12-14-2019 the QRS has widened and the extremity lead voltage has changed ) Computer interpretation: Disagree with computer (I do not see lateral ST elevation) - Labs Labs: Laboratory Tests 05/11/20 05/11/20 05/11/20 23:02 23:02 23:02 WBC 5.1 RBC 3.58 L Hgb 12.5 L Hct 35.8 L MCV 100.0 H MCH 34.9 H MCHC 34.9 RDW 13.5 Plt Count 142 MPV 10.5 Neut # (Auto) 2.2 Lymph # (Auto) 1.6 [place] # (Auto) 0.9 Eos # (Auto) 0.3 Baso # (Auto) 0.0 Absolute Nucleated RBC 0.00 Nucleated RBC % 0.0 PT INR Sodium 136 Potassium 3.3 L Chloride 96 L Carbon Dioxide 22 Anion Gap 18.0 H BUN 33 H Creatinine 1.1 Estimated GFR (MDRD) 69 L Glucose 179 H Calcium 8.9 Total Bilirubin 0.8 AST 51 H ALT 26 Alkaline Phosphatase 92 Ammonia Troponin I High Sens 2.4 Total Protein 7.7 Albumin 4.2 Globulin 3.5 Albumin/Globulin Ratio 1.2 Lipase 26 Urine Color Urine Clarity Urine pH Ur Specific [place] Urine Protein Urine Glucose (UA) Urine Ketones Urine Occult Blood Urine Nitrite Urine Bilirubin Urine Urobilinogen Ur Leukocyte Esterase Ur Microscopic Review Urine Culture Comments Salicylates < 6.0 Urine Opiates Screen Ur Oxycodone Screen Urine Methadone Screen Ur Propoxyphene Screen Acetaminophen < 10 L Ur Barbiturates Screen Ur Tricyclics Screen Ur Phencyclidine Scrn Ur Amphetamine Screen U Methamphetamines Scrn U Benzodiazepines Scrn Urine Cocaine Screen U Cannabinoids Screen Ethyl Alcohol 216.0 05/11/20 05/11/20 05/12/20 23:02 23:02 06:05 WBC RBC Hgb Hct MCV MCH MCHC RDW Plt Count MPV Neut # (Auto) Lymph # (Auto) [place] # (Auto) Eos # (Auto) Baso # (Auto) Absolute Nucleated RBC Nucleated RBC % PT 11.3 INR 1.0 Sodium Potassium Chloride Carbon Dioxide Anion Gap BUN Creatinine Estimated GFR (MDRD) Glucose Calcium Total Bilirubin AST ALT Alkaline Phosphatase Ammonia 12.6 Troponin I High Sens Total Protein Albumin Globulin Albumin/Globulin Ratio Lipase Urine Color YELLOW Urine Clarity CLEAR Urine pH 5.5 Ur Specific [place] 1.020 Urine Protein NEGATIVE Urine Glucose (UA) NEGATIVE Urine Ketones NEGATIVE Urine Occult Blood NEGATIVE Urine Nitrite NEGATIVE Urine Bilirubin NEGATIVE Urine Urobilinogen 0.2 (NORMAL) Ur Leukocyte Esterase NEGATIVE Ur Microscopic Review NOT INDICATED Urine Culture Comments NOT INDICATED Salicylates Urine Opiates Screen NEGATIVE Ur Oxycodone Screen POSITIVE H Urine Methadone Screen NEGATIVE Ur Propoxyphene Screen NEGATIVE Acetaminophen Ur Barbiturates Screen NEGATIVE Ur Tricyclics Screen NEGATIVE Ur Phencyclidine Scrn NEGATIVE Ur Amphetamine Screen NEGATIVE U Methamphetamines Scrn NEGATIVE U Benzodiazepines Scrn POSITIVE H Urine Cocaine Screen NEGATIVE U Cannabinoids Screen NEGATIVE Ethyl Alcohol - Rads (name of study) CT head Radiology: Prelim report reviewed (Impression: No acute intracranial process.), EMP read indepedently, See rad report chest Radiology: Prelim report reviewed (Impression: No acute findings.), EMP read indepedently, See rad report PD MEDICAL DECISION MAKING - ED course Complexity details: reviewed old records, reviewed results, re-evaluated patient, considered differential, d/w patient ED course: 55-year-old male with a history of alcoholism and a number of prior incidence of narcotic overdose resulting in visits to the emergency department and admission to the hospital. The patient has been prescribed narcotic pain reliever through the emergency department and he has had a follow-up and was prescribed 70 pills of 5 mg oxycodone. These were counted and there only for missing. It is not possible to tell if the patient had taken other narcotic from his other bottles at the scene. The mother is unaware of specifically which medicines he is taking. The patient is uncooperative. He did have some response to Narcan in the field. He did not have much response here in the emergency department. He continues to be hypoxic on room air with a shallow respiration. Patient eventually metabolizes and is cooperative and alert. Admits to taking too many pain pills. At shift change care is turned over to Dr. Maira Cleveland with anticipation that he will have a social work on consult and be able to go home. Departure - Departure Clinical Impression: Dehydration Alcohol intoxication Qualifiers: Complication of substance-induced condition: with delirium Qualified Code(s): F10.921 - Alcohol use, unspecified with intoxication delirium Opiate or related narcotic overdose Qualifiers: Encounter type: initial encounter Injury intent: accidental or unintentional Qualified Code(s): T40.601A - Poisoning by unspecified narcotics, accidental (unintentional), initial encounter Condition: Stable Instructions: ED Dehydration, ED Alcohol Intoxication, ED Overdose Accidental Follow-Up: VINCENZO BANKS MD [Primary Care Provider] -
[2020-05-12] MEDS ORDERED: SODIUM CHLORIDE 0.9% 1,000 ML IV STA ×2 (01:47→03:00)
[2020-05-12] MEDS ORDERED: POTASSIUM CHLOR 10 MEQ/100 ML 10 MEQ/100 ML BAG IV ONE (01:47)
[2020-05-12 06:09] LABS: MUDS CUTOFF CONCENTRATIONS CUTOFF CONC BELOW:
[2020-05-12 06:15] LABS: BILIRUBIN,URINE NEGATIVE (NEGATIVE); GLUCOSE, URINE (UA) NEGATIVE (NEGATIVE); KETONES,URINE (UA) NEGATIVE (NEGATIVE); LEUKOCYTE ESTERASE, URINE NEGATIVE (NEGATIVE); NITRITE,URINE NEGATIVE (NEGATIVE); OCCULT BLOOD,URINE NEGATIVE (NEGATIVE); PH,URINE 5.5 PH (5.0-7.5); PROTEIN,URINE NEGATIVE (NEGATIVE); UROBILINOGEN,URINE 0.2 (NORMAL) E.U./dL (NORMAL)
[2020-05-12 06:16] LABS: CLARITY,URINE CLEAR (CLEAR)
[2020-05-12 06:54] LABS: AMPHETAMINE SCREEN,URINE NEGATIVE (NEGATIVE); BENZODIAZEPINES SCREEN, URINE POSITIVE (NEGATIVE); COCAINE SCREEN URINE NEGATIVE (NEGATIVE); METHADONE SCREEN, URINE NEGATIVE (NEGATIVE); METHAMPHETAMINES SCREEN, URINE NEGATIVE (NEGATIVE); OPIATE SCREEN, URINE NEGATIVE (NEGATIVE); OXYCODONE SCREEN, URINE POSITIVE (NEGATIVE); PROPOXYPHENE SCREEN, URINE NEGATIVE (NEGATIVE); TRICYCLIC ANTIDEPRESSANT,URINE NEGATIVE (NEGATIVE)
[2020-05-12] MEDS ORDERED: chlordiazePOXIDE 25 MG CAPSULE PO STA (09:10)
[2020-05-12 11:34] VITALS: BP 119/87
--- NOTE | 2020-05-12 11:40 | CT Report ---
PROCEDURE: HEAD WO INDICATIONS: altered LOC TECHNIQUE: Noncontrast 4.5 mm thick angled axial sections acquired from the foramen magnum to the vertex. For r adiation dose reduction, the following was used: automated exposure control, adjustment of mA and/or kV according to patient size. COMPARISON: Prior head CT examinations 04/24/2020, 03/23/2020, 06/14/2019. Correlation is also made with the accompanying chest x-ray, 05/11/2020. FINDINGS: Image quality: Excellent. CSF spaces: Basal cisterns are patent. No extra-axial fluid collections. Ventricles are normal in size and shape. Brain: No midline shift. No intracranial masses or hemorrhage. Muhammad-white matter interface is norm al. Skull and face: Calvarium and visualized facial bones are intact, without suspicious lesions. Sinuses: Visualized sinuses and mastoids are clear. IMPRESSION: Unremarkable intracranial study. Stable from priors. Note: No significant discrepancy from the preliminary report. Reviewed by: Billy Antunez MD on 05/12/2020 10:[address] [facility] Approved by: Billy Antunez MD on 05/12/2020 10:[address] [facility] Station ID: [id number]
--- NOTE | 2020-05-12 11:44 | XRAY Report ---
PROCEDURE: Chest 1 View X-Ray INDICATIONS: chest pain TECHNIQUE: One view of the chest was acquired. COMPARISON: Prior recent chest radiographs, 04/24/2020, 12/14/2019, 08/20/2019. FINDINGS: Surgical changes and devices: None. Lungs and pleura: An incomplete inspiratory result is noted, with low lung volumes and crowding of t he vascular markings. No focal infiltrates are seen. No large pneumothorax or large pleural effusion can be seen. Mediastinum: Mediastinal contours appear normal. Heart size is normal. Bones and chest wall: No suspicious bony lesions. Age-appropriate degenerative changes are seen. Remote bilateral lateral rib fractures can be seen. Overlying soft tissues appear unremarkable. IMPRESSION: Low lung volumes, with limited evaluation of the lungs. No [place] cardiac pulmonary abnormality is seen. Please consider a short-term follow-up 2 view chest series (performed in deep inspiration) for furthe r evaluation. Note: No significant discrepancy from the preliminary report. Reviewed by: Billy Antunez MD on 05/12/2020 10:42 AM [facility] Approved by: Billy Antunez MD on 05/12/2020 10:42 AM [facility] Station ID: [id number]
== END 2020-05-12 11:49 | disposition home or self-care (01) ==
LOC: EDUNIT# → ED 22:48
DX: F10.121 Alcohol abuse with intoxication delirium (principal); T40.601A Poisoning by unspecified narcotics, accidental (unintentional), initial encounter; R40.4 Transient alteration of awareness; E86.0 Dehydration; R09.02 Hypoxemia; I10 Essential (primary) hypertension; Z66 Do not resuscitate
CPT/HCPCS: 36415; 70450; 71045; 80053; 80306; 81003; 82140; 83690; 84484; 85025; 85610; 93005; 96361; 96365; 96367; 96375; 99281; 99284; A9270; J3411; 80307; 80320; 80329; 81001; 87086

== ENCOUNTER 2020-05-22 22:40 | Emergency (ER) | payer MEDICARE, MEDICAID ==
[2020-05-22 23:03] LABS: BASOPHILS # (AUTO) 0.1 10^3/uL (0.0-0.1); BASOPHILS % (AUTO) 0.9 %; EOSINOPHILS # (AUTO) 0.2 10^3/uL (0.0-0.7); EOSINOPHILS % (AUTO) 3.4 %; HGB - HEMOGLOBIN 14.5 g/dL (14.0-18.0); LYMPHOCYTES % (AUTO) 33.6 %; MEAN CORPUSCULAR HEMOGLOBIN 34.7 pg (27.0-31.0); MEAN CORPUSCULAR HGB CONC 34.4 g/dL (32.0-36.0); MEAN CORPUSCULAR VOLUME 100.7 fL (80.0-94.0); MEAN PLATELET VOLUME 8.8 fL (7.4-11.4); MONOCYTES # (AUTO) 0.8 10^3/uL (0.0-1.0); MONOCYTES % (AUTO) 13.9 %; NEUTROPHILS # (AUTO) 2.8 10^3/uL (1.5-6.6); PLT - PLATELET COUNT 393 10^3/uL (130-450); RED BLOOD COUNT 4.18 10^6/uL (4.70-6.10); RED CELL DISTRIBUTION WIDTH 13.7 % (12.0-15.0); WHITE BLOOD COUNT 5.8 x10^3/uL (4.8-10.8)
--- NOTE | 2020-05-22 23:17 | ED Physician Documentation ---
PD HPI OVERDOSE - Stated complaint Stated Complaint: DIZZYNESS - Chief complaint Chief Complaint: MHE - History obtained from History obtained from: Patient - History of Present Illness Timing - onset: Other (tonight) Subtance(s) ingested: Multiple, EtOH Associated symptoms: Decreased responsiveness Contributing factors: Alchoholic Recently seen: Emergency Dept (T+R 05/11 for syncope, AMS related to overdose of prescription pain medication) - Additional information Additional information: mother drove patient to ED but upon exiting vehicle, patient reportedly had syncopal episode and fell to ground. lab support service tech retrieved patient from parking lot and was able to get patient into a wheelchair and brought him into ED. Patient admits to me that he overdosed tonight. He says he overdosed on oxycodone and gabapentin. When I ask him why he says "I didn't want to wake up in the morning". He denies injury, says he has chronic abdominal pain due to pancreatitis. He is calm and cooperative Review of Systems Eyes: reports: Reviewed and negative Ears: reports: Reviewed and negative Cardiac: reports: Reviewed and negative Respiratory: reports: Reviewed and negative GI: reports: Abdominal Pain. denies: Nausea, Vomiting Skin: denies: Abrasion (s), Laceration (s) Musculoskeletal: reports: Reviewed and negative Neurologic: denies: Generalized weakness, Focal weakness, Numbness, Headache Psychiatric: reports: Suicidal PD PAST MEDICAL HISTORY - Past Medical History Cardiovascular: Hypertension, High cholesterol Respiratory: Sleep apnea, CPAP use Neuro: Headaches, Other Endocrine/Autoimmune: None, Other GI: GERD, Pancreatitis, Cirrhosis : Incontinence HEENT: None Psych: Depression, Anxiety, Panic attacks, Claustrophobia Musculoskeletal: Osteoarthritis Derm: None - Past Surgical History Past Surgical History: Yes Ortho: Hip replacement, Arthroscopic surgery HEENT: Tracheostomy - Present Medications Home Medications: Ambulatory Orders Medication Instructions Recorded Confirmed Thiamine HCl [Vitamin B-1] 100 mg PO DAILY #30 tablet 08/17/18 05/23/20 Furosemide [Lasix] 40 mg PO DAILY 08/19/19 05/23/20 Cholecalciferol [Vitamin D3] 1,000 units PO DAILY 01/17/20 05/23/20 Gabapentin [Neurontin] 600 mg PO TID 01/17/20 05/23/20 Lactulose 30 gm PO TID 01/17/20 05/23/20 Multivitamin W/Minerals [Theragran 1 each PO DAILY 01/17/20 05/23/20 M] Omeprazole 20 mg PO BIDAC 01/17/20 05/23/20 Propranolol [Inderal] 30 mg PO BID 01/17/20 05/23/20 Sucralfate [Carafate] 1 gm PO BIDAC 01/17/20 05/23/20 Tamsulosin [Flomax] 0.4 mg PO DAILY 01/17/20 05/23/20 buPROPion [Wellbutrin Sr] 150 mg PO DAILY #30 tablet 02/21/20 05/23/20 - Allergies Allergies/Adverse Reactions: Allergies Allergy/AdvReac Type Severity Reaction Status Date / Time lisinopril Allergy Mild Anaphylaxis Verified 04/24/20 16:47 - Social History Does the pt smoke?: No Smoking Status: Never smoker Does the pt drink ETOH?: Yes Does the pt have substance abuse?: Yes - Immunizations Immunizations are current?: Yes Immunizations: Other immun not current - POLST Patient has POLST: No POLST Status: DNR (pt clearly state to me it is DNR, Pt's mother at the bedside did not say no.) PD ED PE NORMAL - Vitals Vital signs reviewed: Yes - General General: No acute distress, Well developed/nourished, Other (drowsy but awaken to voice and stays awake if conversation is kept up. 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, No motor deficit, No sensory deficit Eye Opening: To Voice Motor: Obeys Commands Verbal: Oriented GCS Score: 14 PD ED PE EXPANDED - HEENT HEENT Visual: 1 - abrasion (linear abrasion with mild tenderness, no bony step off) Results - Vitals Vitals: Vital Signs - 24 hr 05/22/20 05/22/20 05/22/20 22:45 22:54 23:24 Temperature 36.8 C 36.8 C Heart Rate 71 73 79 Respiratory 18 14 12 Rate Blood Pressure 106/81 H 105/87 H 91/72 O2 Saturation 97 95 95 05/22/20 05/23/20 05/23/20 23:30 00:00 00:14 Temperature Heart Rate 78 75 75 Respiratory 14 14 14 Rate Blood Pressure 93/70 89/71 L 89/71 L O2 Saturation 96 92 93 05/23/20 05/23/20 05/23/20 00:30 01:00 01:30 Temperature 36.4 C L 36.7 C 36.7 C Heart Rate 74 76 73 Respiratory 13 13 14 Rate Blood Pressure 94/72 94/75 99/75 O2 Saturation 97 96 98 05/23/20 05/23/20 05/23/20 02:00 02:30 03:00 Temperature Heart Rate 75 73 74 Respiratory 12 16 12 Rate Blood Pressure 100/76 94/69 91/65 O2 Saturation 93 95 93 05/23/20 05/23/20 05/23/20 03:30 04:00 04:20 Temperature 36.9 C Heart Rate 69 68 67 Respiratory 12 10 L 10 L Rate Blood Pressure 107/83 H 109/80 106/81 H O2 Saturation 96 97 96 05/23/20 05/23/20 05/23/20 04:30 05:00 05:30 Temperature 36.8 C 36.4 C L 36.5 C Heart Rate 71 71 65 Respiratory 12 15 20 Rate Blood Pressure 105/79 109/78 117/92 H O2 Saturation 97 98 95 05/23/20 05/23/20 05/23/20 06:00 06:30 07:00 Temperature 36.7 C 36.8 C 36.8 C Heart Rate 62 67 74 Respiratory 12 12 12 Rate Blood Pressure 122/95 H 108/81 H 108/81 H O2 Saturation 100 98 98 05/23/20 05/23/20 05/23/20 07:30 08:00 08:30 Temperature Heart Rate 74 75 74 Respiratory 14 19 16 Rate Blood Pressure 104/77 105/75 107/77 O2 Saturation 96 98 98 12/16/20 12/16/20 12/16/20 09:00 10:00 12:48 Temperature Heart Rate 66 72 73 Respiratory 14 14 14 Rate Blood Pressure 130/100 H 115/88 H 122/88 H O2 Saturation 98 96 98 Oxygen O2 Source Room air - EKG (time done) No standard instances Rate: Rate (enter#) (73) Rhythm: NSR [place]: Normal Intervals: Prolonged OR (borderline) QRS: Normal Ischemia: Normal ST segments Compare to prior EKG: Unchanged from prior EKG (no change from 05/11/20 except resolution of previously noted mild QRS widening) - Labs Labs: Laboratory Tests 05/22/20 05/22/20 05/22/20 22:56 22:56 22:56 WBC 5.8 RBC 4.18 L Hgb 14.5 Hct 42.1 MCV 100.7 H MCH 34.7 H MCHC 34.4 RDW 13.7 Plt Count 393 MPV 8.8 Neut # (Auto) 2.8 Lymph # (Auto) 2.0 [place] # (Auto) 0.8 Eos # (Auto) 0.2 Baso # (Auto) 0.1 Absolute Nucleated RBC 0.00 Nucleated RBC % 0.0 Sodium 139 Potassium 3.5 Chloride 94 L Carbon Dioxide 28 Anion Gap 17.0 H BUN 12 Creatinine 1.1 Estimated GFR (MDRD) 69 L Glucose 107 H Calcium 10.0 Total Bilirubin 0.5 AST 36 ALT 22 Alkaline Phosphatase 114 Total Protein 8.6 H Albumin 4.8 Globulin 3.8 Albumin/Globulin Ratio 1.3 Lipase 16 L TSH 1.71 Urine Color Urine Clarity Urine pH Ur Specific [place] Urine Protein Urine Glucose (UA) Urine Ketones Urine Occult Blood Urine Nitrite Urine Bilirubin Urine Urobilinogen Ur Leukocyte Esterase Ur Microscopic Review Urine Culture Comments Nasal Adenovirus (PCR) Nasal B. parapertussis DNA (PCR) Nasal Coronavir 229E PCR Nasal Coronavir HKU1 PCR Nasal Coronavir NL63 PCR Nasal Coronavir OC43 PCR Nasal Enterovir/Rhinovir PCR Nasal Influenza B PCR Nasal Influenza A PCR Nasal Parainfluen 1 PCR Nasal Parainfluen 2 PCR Nasal Parainfluen 3 PCR Nasal Parainfluen 4 PCR Nasal RSV (PCR) Nasal B.pertussis DNA PCR Nasal C.pneumoniae (PCR) [place] Human Metapneumo PCR Nasal M.pneumoniae (PCR) Nasal SARS-CoV-2 (PCR) Salicylates < 6.0 Urine Opiates Screen Ur Oxycodone Screen Urine Methadone Screen Ur Propoxyphene Screen Acetaminophen < 10 L Ur Barbiturates Screen Ur Tricyclics Screen Ur Phencyclidine Scrn Ur Amphetamine Screen U Methamphetamines Scrn U Benzodiazepines Scrn Urine Cocaine Screen U Cannabinoids Screen Ethyl Alcohol 217.3 05/23/20 05/23/20 05/23/20 05:34 10:16 14:14 WBC RBC Hgb Hct MCV MCH MCHC RDW Plt Count MPV Neut # (Auto) Lymph # (Auto) [place] # (Auto) Eos # (Auto) Baso # (Auto) Absolute Nucleated RBC Nucleated RBC % Sodium Potassium Chloride Carbon Dioxide Anion Gap BUN Creatinine Estimated GFR (MDRD) Glucose Calcium Total Bilirubin AST ALT Alkaline Phosphatase Total Protein Albumin Globulin Albumin/Globulin Ratio Lipase TSH Urine Color YELLOW Urine Clarity CLEAR Urine pH 5.5 Ur Specific [place] 1.020 Urine Protein NEGATIVE Urine Glucose (UA) NEGATIVE Urine Ketones TRACE Urine Occult Blood NEGATIVE Urine Nitrite NEGATIVE Urine Bilirubin NEGATIVE Urine Urobilinogen 0.2 (NORMAL) Ur Leukocyte Esterase NEGATIVE Ur Microscopic Review NOT INDICATED Urine Culture Comments NOT INDICATED Nasal Adenovirus (PCR) NOT DETECTED Nasal B. parapertussis DNA (PCR) NOT DETECTED Nasal Coronavir 229E PCR NOT DETECTED Nasal Coronavir HKU1 PCR NOT DETECTED Nasal Coronavir NL63 PCR NOT DETECTED Nasal Coronavir OC43 PCR NOT DETECTED Nasal Enterovir/Rhinovir PCR NOT DETECTED Nasal Influenza B PCR NOT DETECTED Nasal Influenza A PCR NOT DETECTED Nasal Parainfluen 1 PCR NOT DETECTED Nasal Parainfluen 2 PCR NOT DETECTED Nasal Parainfluen 3 PCR NOT DETECTED Nasal Parainfluen 4 PCR NOT DETECTED Nasal RSV (PCR) NOT DETECTED Nasal B.pertussis DNA PCR NOT DETECTED Nasal C.pneumoniae (PCR) NOT DETECTED [place] Human Metapneumo PCR NOT DETECTED Nasal M.pneumoniae (PCR) NOT DETECTED Nasal SARS-CoV-2 (PCR) NOT DETECTED Salicylates Urine Opiates Screen NEGATIVE Ur Oxycodone Screen NEGATIVE Urine Methadone Screen NEGATIVE Ur Propoxyphene Screen NEGATIVE Acetaminophen Ur Barbiturates Screen NEGATIVE Ur Tricyclics Screen NEGATIVE Ur Phencyclidine Scrn NEGATIVE Ur Amphetamine Screen NEGATIVE U Methamphetamines Scrn NEGATIVE U Benzodiazepines Scrn POSITIVE H Urine Cocaine Screen NEGATIVE U Cannabinoids Screen NEGATIVE Ethyl Alcohol 27.5 PD MEDICAL DECISION MAKING - ED course Complexity details: reviewed old records, reviewed results, re-evaluated patient, considered differential, d/w patient ED course: patient had some hypotensive blood pressures early in stay which eventually responded to IV fluids (required total of 3 liters but he remained normotensive for remainder of my shift after this intervention). At one point early in ED stay, clinical research monitor was reading heart rate in the 30s and I was then made aware that patient was saying he also overdosed on propranolol. When I ask him about this, he initially tells me he did not overdose on propranolol, but then says he isn't sure and then says he thinks he did (he does not appear to be trying to be deceptive but actually having difficulty recalling). On review of the clinical research monitor alarms, it is clear that the monitor was giving a rate that was half of what was being displayed on the recorded rate (NSR with rate in the 60s). held in ED overnight and repeat etoh below 0.03. His slurred speech resolved and he was AAOx3. Asked why he overdosed, he cannot say with confidence whether he had true suicidal intent or not. He is also asking for help with his alcoholism. SW consulted and care of patient turned over to Dr. Means. Departure - Departure Disposition: 65 Psych Hosp/Unit DC/Xfer Clinical Impression: Alcoholism, Suicidal overdose Condition: Stable
[2020-05-22 23:18] LABS: ACETAMINOPHEN < 10 ug/mL (10-30); ALBUMIN 4.8 g/dL (3.2-5.5); ALBUMIN/GLOBULIN RATIO 1.3 (1.0-2.2); ALKALINE PHOSPHATASE 114 IU/L (42-121); ALT ALANINE AMINOTRANSFERASE 22 IU/L (10-60); AST ASPARTATE AMINOTRANSFERASE 36 IU/L (10-42); BILIRUBIN,TOTAL 0.5 mg/dL (0.2-1.0); BUN - BLOOD UREA NITROGEN 12 mg/dL (6-20); CARBON DIOXIDE - CO2 28 mmol/L (21-32); CHLORIDE 94 mmol/L (101-111); CREATININE 1.1 mg/dL (0.6-1.2); GLUCOSE 107 mg/dL (70-100); LIPASE 16 U/L (22-51); SALICYLATE < 6.0 mg/dL; SODIUM 139 mmol/L (135-145); TOTAL PROTEIN 8.6 g/dL (6.7-8.2)
[2020-05-22] MEDS ORDERED: SODIUM CHLORIDE 0.9% 1,000 ML IV STA (23:44)
[2020-05-23] MEDS ORDERED: SODIUM CHLORIDE 0.9% 1,000 ML IV STA ×2 (01:31→03:21)
[2020-05-23] MEDS ORDERED: KETOROLAC 30 MG/ML VIAL IVP STA (01:41)
[2020-05-23] MEDS ORDERED: LORazepam 0.5 MG TABLET PO STA ×2 (06:35→14:43)
[2020-05-23 10:19] LABS: MUDS CUTOFF CONCENTRATIONS CUTOFF CONC BELOW:
[2020-05-23 10:22] LABS: BILIRUBIN,URINE NEGATIVE (NEGATIVE); GLUCOSE, URINE (UA) NEGATIVE (NEGATIVE); KETONES,URINE (UA) TRACE mg/dL (NEGATIVE); LEUKOCYTE ESTERASE, URINE NEGATIVE (NEGATIVE); NITRITE,URINE NEGATIVE (NEGATIVE); OCCULT BLOOD,URINE NEGATIVE (NEGATIVE); PH,URINE 5.5 PH (5.0-7.5); PROTEIN,URINE NEGATIVE (NEGATIVE); UROBILINOGEN,URINE 0.2 (NORMAL) E.U./dL (NORMAL)
[2020-05-23 10:26] LABS: CLARITY,URINE CLEAR (CLEAR)
[2020-05-23 10:31] LABS: AMPHETAMINE SCREEN,URINE NEGATIVE (NEGATIVE); BENZODIAZEPINES SCREEN, URINE POSITIVE (NEGATIVE); COCAINE SCREEN URINE NEGATIVE (NEGATIVE); METHADONE SCREEN, URINE NEGATIVE (NEGATIVE); METHAMPHETAMINES SCREEN, URINE NEGATIVE (NEGATIVE); OPIATE SCREEN, URINE NEGATIVE (NEGATIVE); OXYCODONE SCREEN, URINE NEGATIVE (NEGATIVE); PROPOXYPHENE SCREEN, URINE NEGATIVE (NEGATIVE); TRICYCLIC ANTIDEPRESSANT,URINE NEGATIVE (NEGATIVE)
--- NOTE | 2020-05-23 13:17 | ED Physician Documentation ---
ED Addendum - Addendum Addendum: 05/23/20 14:42 Patient was accepted to [facility] by Renae HARVEY. COBRA forms completed. Departure - Departure Disposition: [facility] Psych Hosp/Unit DC/Xfer Clinical Impression: Alcoholism Suicidal overdose Qualifiers: Encounter type: initial encounter Qualified Code(s): T50.902A - Poisoning by unspecified drugs, medicaments and biological substances, intentional self-harm, initial encounter Condition: Stable
[2020-05-23 13:58] VITALS: BP 122/88
[2020-05-23 15:18] LABS: C. PNEUMONIAE- RESP PCR PANEL NOT DETECTED
== END 2020-05-23 17:19 ==
LOC: ED 22:40
DX: T42.6X2A Poisoning by other antiepileptic and sedative-hypnotic drugs, intentional self-harm, initial encounter (principal); T40.2X2A Poisoning by other opioids, intentional self-harm, initial encounter; T44.7X2A Poisoning by beta-adrenoreceptor antagonists, intentional self-harm, initial encounter; I95.9 Hypotension, unspecified; F10.20 Alcohol dependence, uncomplicated; S00.01XA Abrasion of scalp, initial encounter; W18.39XA Other fall on same level, initial encounter; Y92.481 Parking lot as the place of occurrence of the external cause; Z20.828 Contact with and (suspected) exposure to other viral communicable diseases; F32.9 Major depressive disorder, single episode, unspecified; I10 Essential (primary) hypertension; Z66 Do not resuscitate
CPT/HCPCS: 36415; 80053; 80306; 81003; 83690; 84443; 85025; 87631; 93005; 96361; 96374; 99284; 99285; A9270; 0202U; 80307; 80320; 80329; 81001; 87086

== ENCOUNTER 2020-06-01 19:48 | Outpatient (CLI) | payer MEDICARE, MEDICAID | END 2020-06-01 19:49 | disposition critical access hospital (66) | LOC: EMS 19:48 | PROVIDERS: ATTEND Surgery | DX: Z76.89 Persons encountering health services in other specified circumstances (principal) | CPT/HCPCS: A0425; A0429 ==

== ENCOUNTER 2020-06-01 20:06 | Emergency (ER) | payer MEDICARE, MEDICAID ==
--- NOTE | 2020-06-01 20:13 | ED Physician Documentation ---
PD HPI ALTERED MENTAL STATUS - Stated complaint Stated Complaint: HBD - History obtained from History obtained from: Patient - History of Present Illness Timing - onset: Today Timing - duration: Hours Timing - details: Gradual onset, Still present (States he was drinking heavily again today. He had been sober for several days after discharge from a detox facility and of course sober while they are. He drank heavily today and his mother called EMS to see if he could get assistance again.) Quality / character: Less responsive (but still able to answer questions.) Associated symptoms: No: Fever, Headache, Stiff neck, Dyspnea, Cough, NVD Contributing factors: Intoxicated Basline status: 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, Ambulatory Similar symptoms before: Diagnosis (alcoholism) Recently seen: Admitted (Facility and tech [facility] for a few weeks he says and discharge several days ago.) Review of Systems Constitutional: denies: Fever Nose: denies: Rhinorrhea / runny nose, Congestion Throat: denies: Sore throat Cardiac: denies: Chest pain / pressure Respiratory: denies: Cough GI: denies: Abdominal Pain, Vomiting, Diarrhea, Bloody / black stool Neurologic: denies: Near syncope, Confused, Headache, Head injury Psychiatric: denies: Depressed, Suicidal PD PAST MEDICAL HISTORY - Past Medical History Cardiovascular: Hypertension, High cholesterol Respiratory: Sleep apnea, CPAP use Neuro: Headaches, Other Endocrine/Autoimmune: None, Other GI: GERD, Pancreatitis, Cirrhosis : Incontinence HEENT: None Psych: Depression, Anxiety, Panic attacks, Claustrophobia Musculoskeletal: Osteoarthritis Derm: None - Past Surgical History Past Surgical History: Yes Ortho: Hip replacement, Arthroscopic surgery HEENT: Tracheostomy - Present Medications Home Medications: Ambulatory Orders Medication Instructions Recorded Confirmed Thiamine HCl [Vitamin B-1] 100 mg PO DAILY #30 tablet 08/17/18 05/23/20 Furosemide [Lasix] 40 mg PO DAILY 08/19/19 05/23/20 Cholecalciferol [Vitamin D3] 1,000 units PO DAILY 01/17/20 05/23/20 Gabapentin [Neurontin] 600 mg PO TID 01/17/20 05/23/20 Lactulose 30 gm PO TID 01/17/20 05/23/20 Multivitamin W/Minerals [Theragran 1 each PO DAILY 01/17/20 05/23/20 M] Omeprazole 20 mg PO BIDAC 01/17/20 05/23/20 Propranolol [Inderal] 30 mg PO BID 01/17/20 05/23/20 Sucralfate [Carafate] 1 gm PO BIDAC 01/17/20 05/23/20 Tamsulosin [Flomax] 0.4 mg PO DAILY 01/17/20 05/23/20 buPROPion [Wellbutrin Sr] 150 mg PO DAILY #30 tablet 02/21/20 05/23/20 - Allergies Allergies/Adverse Reactions: Allergies Allergy/AdvReac Type Severity Reaction Status Date / Time lisinopril Allergy Mild Anaphylaxis Verified 06/01/20 20:08 - Social History Does the pt smoke?: No Smoking Status: Never smoker Does the pt drink ETOH?: Yes Does the pt have substance abuse?: Yes - Immunizations Immunizations are current?: Yes Immunizations: Other immun not current - POLST Patient has POLST: No POLST Status: DNR (pt clearly state to me it is DNR, Pt's mother at the bedside did not say no.) PD ED PE NORMAL - Vitals Vital signs reviewed: Yes - General General: 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, No acute distress (Somewhat slurred speech and sluggish thought process consistent with intoxication. No areas of tenderness on the head. Denies headache or injury.), Well developed/nourished - HEENT HEENT: Pharynx benign - Neck Neck: Supple, no meningeal sign, No adenopathy - Cardiac Cardiac: RRR, No murmur - Respiratory Respiratory: Clear bilaterally - Abdomen Abdomen: Soft, Non tender - Derm Derm: Normal color, Warm and dry - Extremities Extremities: Normal ROM s pain - Neuro Neuro: 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, No motor deficit, Normal speech Eye Opening: Spontaneous Motor: Obeys Commands Verbal: Oriented (just slow to answer at times) GCS Score: 15 Results - Vitals Vitals: Vital Signs - 24 hr 06/01/20 06/01/20 20:09 20:13 Temperature 36.5 C 36.5 C Heart Rate 83 83 Respiratory 16 16 Rate Blood Pressure 115/87 H 115/87 H O2 Saturation 96 96 Oxygen O2 Source Room air - Labs Labs: Laboratory Tests 06/01/20 06/01/20 20:47 20:47 WBC 4.0 L RBC 3.91 L Hgb 13.3 L Hct 39.4 L MCV 100.8 H MCH 34.0 H MCHC 33.8 RDW 13.7 Plt Count 389 MPV 9.1 Neut # (Auto) 0.9 L Lymph # (Auto) 2.2 [place] # (Auto) 0.7 Eos # (Auto) 0.1 Baso # (Auto) 0.1 Absolute Nucleated RBC 0.00 Nucleated RBC % 0.0 Sodium 142 Potassium 3.7 Chloride 102 Carbon Dioxide 26 Anion Gap 14.0 H BUN 10 Creatinine 0.8 Estimated GFR (MDRD) 100 Glucose 114 H Calcium 9.1 Magnesium 1.8 Total Bilirubin 0.6 AST 35 ALT 18 Alkaline Phosphatase 92 Total Protein 7.8 Albumin 4.2 Globulin 3.6 Albumin/Globulin Ratio 1.2 Lipase 19 L Ethyl Alcohol 355.1 PD MEDICAL DECISION MAKING - ED course Complexity details: re-evaluated patient (The nurse in the ER did find a bed availability at [facility]. There he states they needed his blood alcohol to be below 250 which should be in about 4 to 5 hours after the first draw. However the patient is now saying that he would rather just go home and sleep and declines transfer to a detox.), considered differential (Patient had just been discharged from a detox and [facility]. He had been home a few days and started drinking again today. He was interested in detox again and we started looking for availability.), d/w patient Departure - Departure Disposition: 01 Home, Self Care Clinical Impression: Alcohol intoxication Qualifiers: Complication of substance-induced condition: uncomplicated Qualified Code(s): F10.920 - Alcohol use, unspecified with intoxication, uncomplicated Condition: Stable Record reviewed to determine appropriate education?: Yes Instructions: ED Alcohol Intoxication Comments: And alcohol. Follow-up with [facility] or the prior detox facility you had been in if you are seeking further treatment. Otherwise avoid alcohol at home. Follow-up with group support such as AA meetings or counseling.
[2020-06-01 20:56] LABS: BASOPHILS # (AUTO) 0.1 10^3/uL (0.0-0.1); BASOPHILS % (AUTO) 1.3 %; EOSINOPHILS # (AUTO) 0.1 10^3/uL (0.0-0.7); HGB - HEMOGLOBIN 13.3 g/dL (14.0-18.0); LYMPHOCYTES # (AUTO) 2.2 10^3/uL (1.5-3.5); LYMPHOCYTES % (AUTO) 56.5 %; MEAN CORPUSCULAR HGB CONC 33.8 g/dL (32.0-36.0); MEAN CORPUSCULAR VOLUME 100.8 fL (80.0-94.0); MEAN PLATELET VOLUME 9.1 fL (7.4-11.4); MONOCYTES # (AUTO) 0.7 10^3/uL (0.0-1.0); MONOCYTES % (AUTO) 16.7 %; NEUTROPHILS # (AUTO) 0.9 10^3/uL (1.5-6.6); NEUTROPHILS % (AUTO) 22.2 %; PLT - PLATELET COUNT 389 10^3/uL (130-450); RED BLOOD COUNT 3.91 10^6/uL (4.70-6.10); RED CELL DISTRIBUTION WIDTH 13.7 % (12.0-15.0)
[2020-06-01 21:07] LABS: ALBUMIN 4.2 g/dL (3.2-5.5); ALBUMIN/GLOBULIN RATIO 1.2 (1.0-2.2); BILIRUBIN,TOTAL 0.6 mg/dL (0.2-1.0); CALCIUM 9.1 mg/dL (8.5-10.3); CREATININE 0.8 mg/dL (0.6-1.2); MAGNESIUM 1.8 mg/dL (1.7-2.8); TOTAL PROTEIN 7.8 g/dL (6.7-8.2)
[2020-06-01 23:44] VITALS: BP 120/80
== END 2020-06-01 23:42 | disposition home or self-care (01) ==
LOC: EDUNIT# → ED 20:06
DX: F10.129 Alcohol abuse with intoxication, unspecified (principal); I10 Essential (primary) hypertension; Z66 Do not resuscitate
CPT/HCPCS: 80053; 80320; 83690; 83735; 84443; 85025; 99283

== ENCOUNTER 2020-06-12 17:42 | Outpatient (CLI) | payer MEDICARE, MEDICAID ==
--- OUTSIDE RECORDS SUMMARY | 2020-06-20 00:32 | EXTERNAL MEDICAL SUMMARY RPT | Continuity of Care Document ---
: Demographics Phone Unavailable Preferred Language Thai Marital Status Unknown Scientology Affiliation Unknown Race Unknown Ethnic Group Unknown Author Organization [place] Address [address] [phone] Phone Care Team Providers Name Role Phone Vincenzo PRIEST, Unavailable Unavailable Renetta HINTON, Unavailable Unavailable VINCENZO BANKS Unavailable Unavailable HolidayRenetta Unavailable Unavailable Sujit, Rah Unavailable Unavailable Problems date description facility 2019-08-19 17:36 IRON DEFICIENCY ANEMIA, [facility] UNSPECIFIED 2019-08-19 17:36 PURE HYPERCHOLESTEROLEMIA, [facility] UNSPECIFIED 2019-08-19 17:36 FLUID OVERLOAD, UNSPECIFIED [facility] 2019-08-19 17:36 MAJOR DEPRESSIVE DISORDER, [facility] SINGLE EPISODE, UNSPECIFIED 2019-08-19 17:36 OTHER SPECIFIED ANXIETY [facility] DISORDERS 2019-08-19 17:36 ALCOHOLIC HEPATITIS WITHOUT [facility] ASCITES 2019-08-19 17:36 ALCOHOLIC HEPATIC FAILURE [facility] WITHOUT COMA 2019-08-19 17:36 PAIN IN RIGHT HIP [facility] Medic [facility] 2019-08-19 17:36 ACUTE KIDNEY FAILURE, [facility] UNSPECIFIED 2019-08-19 17:[address] 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 2019-08-19 17:36 HISTORY OF FALLING [facility] 2019-08-19 17:36 ALCOHOL DEPENDENCE WITH [facility] INTOXICATION, UNSPECIFIED 2019-08-19 17:36 CLAUSTROPHOBIA [facility] 2019-08-19 17:36 PANIC DISORDER [EPISODIC [facility] PAROXYSMAL ANXIETY] 2019-08-19 17:36 SLEEP APNEA, UNSPECIFIED [facility] 2019-08-19 17:36 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, UNSPECIFIED 2019-08-19 17:36 OTHER CHRONIC PAIN [facility] 2019-08-19 17:36 [facility] 2019-08-19 17:36 GASTRO-ESOPHAGEAL REFLUX [facility] DISEASE WITHOUT ESOPHAGITIS 2019-08-19 17:36 ALCOHOLIC HEPATITIS WITH [facility] ASCITES 2019-08-19 17:36 ALCOHOLIC CIRRHOSIS OF LIVER [facility] WITH ASCITES 2019-08-19 17:36 UNSPECIFIED OSTEOARTHRITIS, [facility] UNSPECIFIED SITE 2019-08-19 17:36 BENIGN PROSTATIC HYPERPLASIA [facility] WITH LOWER URINARY TRACT SYMP 2019-08-19 17:36 ATAXIA, [facility] 2019-08-19 17:36 FREQUENCY OF MICTURITION [facility] 2019-08-19 17:36 ABRASION OF UNSPECIFIED PART OF [facility] HEAD, INITIAL ENCOUNTER 2019-08-19 17:36 PERSONAL HISTORY OF DIS OF THE [facility] NERVOUS SYS AND SENSE ORGANS 2019-08-19 17:36 PRESENCE OF 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 2020-01-17 10:47 PURE HYPERCHOLESTEROLEMIA, [facility] UNSPECIFIED 2020-01-17 10:47 ALCOHOL ABUSE, UNCOMPLICATED [facility] 2020-01-17 10:47 ALCOHOL DEPENDENCE WITH [facility] INTOXICATION, UNSPECIFIED 2020-01-17 10:47 MAJOR DEPRESSIVE DISORDER, [facility] SINGLE EPISODE, UNSPECIFIED 2020-01-17 10:47 CLAUSTROPHOBIA [facility] 2020-01-17 10:47 PANIC DISORDER [EPISODIC [facility] PAROXYSMAL ANXIETY] 2020-01-17 10:47 SLEEP APNEA, UNSPECIFIED [facility] 2020-01-17 10:47 [facility] HYPERTENSION 2020-01-17 10:47 GASTRO-ESOPHAGEAL REFLUX [facility] DISEASE WITHOUT ESOPHAGITIS 2020-01-17 10:47 UNSPECIFIED CIRRHOSIS OF LIVER [facility] 2020-01-17 10:47 ACUTE PANCREATITIS WITHOUT [facility] NECROSIS OR INFECTION, [facility] 2020-01-17 10:47 OTHER CHRONIC PANCREATITIS [facility] 2020-01-17 10:47 PSEUDOCYST OF PANCREAS [facility] 2020-01-17 10:47 LOWER ABDOMINAL PAIN, 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 2020-01-17 10:47 CUSTODIAL (CURRENT) USE OF [facility] SYSTEMIC STEROIDS 2020-01-17 10:47 PERSONAL HISTORY OF DIS OF THE [facility] NERVOUS SYS AND SENSE ORGANS 2020-01-17 10:47 PRESENCE OF 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 2020-01-18 13:00 ACUTE PANCREATITIS WITH [facility] UNINFECTED NECROSIS, UNSPECIFIED 2020-02-14 16:00 UNSTEADINESS ON FEET [facility] 2020-02-14 16:00 WEAKNESS [facility] 2020-02-14 16:00 HISTORY OF FALLING [facility] 2020-02-17 15:28 UNSTEADINESS ON FEET [facility] 2020-02-17 15:28 SLOWNESS AND POOR [facility] RESPONSIVENESS 2020-02-17 15:47 DISORIENTATION, UNSPECIFIED [facility] 2020-02-17 15:47 POISONING BY UNSP [facility] DRUG/MEDS/BIOL SUBST, UNDETERMINED, INIT 2020-02-17 15:47 DO NOT RESUSCITATE [facility] 2020-02-21 21:53 ANXIETY DISORDER, UNSPECIFIED [facility] 2020-02-21 21:53 UNSPECIFIED ABDOMINAL PAIN [facility] 2020-02-21 21:53 OTHER PROBLEMS RELATED TO [facility] LIFESTYLE 2020-02-21 22:11 MAJOR DEPRESSIVE DISORDER, [facility] SINGLE EPISODE, UNSPECIFIED 2020-02-21 22:11 ANXIETY DISORDER, [facility] 2020-02-21 22:11 ALCOHOL ABUSE WITH [facility] INTOXICATION, UNSPECIFIED 2020-02-21 22:11 MAJOR DEPRESSIVE DISORDER, [facility] SINGLE EPISODE, UNSPECI 2020-02-21 22:11 DO NOT RESUSCITATE [facility] 2020-02-24 20:42 PERSONS ENCOUNTERING [facility] SERVICES IN OTH CIRCUMSTANCES 2020-02-24 20:59 ALCOHOL DEPENDENCE, [facility] UNCOMPLICATED 2020-02-24 20:59 DISORIENTATION, UNSPECIFIED [facility] 2020-02-24 20:59 DO NOT RESUSCITATE [facility] 2020-02-29 16:24 PERSONS ENCOUNTERING [facility] SERVICES IN OTH CIRCUMSTANCES 2020-03-08 14:18 UNSTEADINESS ON FEET [facility] 2020-03-08 14:18 WEAKNESS [facility] 2020-03-08 14:18 HISTORY OF FALLING [facility] 2020-03-23 12:02 CALCULUS OF GALLBLADDER W/O [facility] CHOLECYSTITIS W/O OBSTRUCTION 2020-03-23 12:02 OTHER CHRONIC PANCREATITIS [facility] 2020-03-23 12:02 OTHER ASCITES [facility] 2020-03-23 13:00 OTHER CHRONIC PANCREATITIS [facility] 2020-03-23 21:18 DIPLOPIA [facility] 2020-03-23 21:18 AUDITORY HALLUCINATIONS [facility] 2020-03-23 21:34 ALCOHOL ABUSE, UNCOMPLICATED [facility] 2020-03-23 21:34 CALCULUS OF GALLBLADDER W/O [facility] CHOLECYSTITIS W/O OBST 2020-03-23 21:34 BLOOD ALCOHOL LEVEL OF 200-239 [facility] MG/100 ML 2020-03-23 21:34 DO NOT RESUSCITATE [facility] 2020-03-23 21:34 DIPLOPIA [facility] 2020-03-23 21:34 CALCULUS OF GALLBLADDER W/O [facility] CHOLECYSTITIS W/O OBSTRUCTION 2020-03-23 21:34 OTHER CHRONIC PANCREATITIS [facility] 2020-03-23 21:34 OTHER ASCITES [facility] 2020-03-28 00:00:00 [facility] 2020-03-28 00:00:00 Alcohol [facility] 2020-03-28 00:00:00 Health-related behavior [facility] [place] [facility] 2020-03-28 00:00:00 Exercise [facility] [place] [facility] 2020-03-28 00:00:00 [facility] use [facility] [place] [facility] 2020-03-28 00:00:00 Former sm[facility] [place] [facility] 2020-03-28 00:00:00 Tobacco use and exposure [facility] [place] [facility] 2020-03-28 00:00:00 Details of drug misuse behavior [facility] [place] [facility] 2020-04-03 11:45 UNSTEADINESS [address] FEET [facility] 2020-04-03 11:45 [facility] 2020-04-03 11:45 HISTORY OF FALLING [facility] Medic [facility] 2020-04-11 14:15 HISTORY OF FALLING [facility] 2020-04-17 16:15 HISTORY OF FALLING [facility] 2020-04-24 16:41 ESSENTIAL [facility]PRIMARY) [facility] HYPERTENSION 2020-04-24 16:41 RIGHT UPPER QUADRANT PAIN [facility] 2020-04-24 16:41 STRAIN OF MUSCLE, FASCIA AND [facility] TENDON AT NECK LEVEL, 2020-04-24 16:41 CONTUSION OF RIGHT FRONT WALL [facility] OF THORAX, INITIAL E 2020-04-24 16:41 OTHER FALL ON SAME LEVEL, [facility] INITIAL ENCOUNTER 2020-04-24 16:[address] [facility] [place] [address] 2020-04-24 16:41 ALCOHOL ABUSE WITH [facility] INTOXICATION, UNSPECIFIED 2020-04-24 16:41 OTHER CHEST PAIN [facility] 2020-04-24 16:41 CONTUSION OF SCALP, INITIAL [facility] ENCOUNTER 2020-04-24 16:41 STRAIN OF MUSCLE, [facility] TENDON AT NECK LEVEL, INIT 2020-04-24 16:41 CONTUSION OF RIGHT FRONT WALL [facility] OF THORAX, INITIAL ENCOUNTER 2020-04-24 16:41 CONTUSION OF RIGHT HIP, INITIAL [facility] ENCOUNTER 2020-04-24 16:41 DO NOT RESUSCITATE [facility] 2020-05-01 00:00:00 Screening examination for [facility] unspecified infectious disease [place] [facility] 2020-05-01 00:00:00 Encounter for screening for [facility] infectious and parasitic [facility] diseases, unspecified 2020-05-01 00:00:00 COVID19 [facility] 2020-05-01 00:00:00 [facility] [place] [facility] 2020-05-11 00:00:00 Insomnia, unspecified [facility] 2020-05-11 00:00:00 Insomnia [facility] 2020-05-11 00:00:00 Health-related behavior [facility] Primary Care [facility] 2020-05-11 00:00:00 Tobacco use and exposure [facility] Primary Care [facility] 2020-05-11 00:00:00 Exercise [facility] 2020-05-11 00:00:00 Details of drug misuse behavior [facility] [place] [facility] 2020-05-11 00:00[facility] [facility] 2020-05-11 00:00:00 Former smoker [facility] 2020-05-11 22:30 RESPIRATORY ARREST [facility] 2020-05-11 22:48 DEHYDRATION [facility] 2020-05-11 22:48 ALCOHOL ABUSE WITH INTOXICATION [facility] DELIRIUM 2020-05-11 22:48 ESSENTIAL [facility]PRIMARY[facility] HYPERTENSION 2020-05-11 22:48 HYPOXEMIA [facility] 2020-05-11 22:48 POISONING BY UNSP NARCOTICS, [facility] ACCIDENTAL, INIT 2020-05-11 22:48 DO NOT RESUSCITATE [facility] 2020-05-11 22:48 TRANSIENT ALTERATION OF [facility] AWARENESS 2020-05-11 22:48 SYNCOPE AND COLLAPSE [facility] [place] 2020-05-15 00:00:00 Alcohol withdrawal delirium [facility] Care [facility] 2020-05-15 00:00:00 Alcohol use, unspecified with [facility] Primary [facility] intoxication delirium [facility] 2020-05-15 00:00:00 Poisoning by unspecified [facility] narcotics, accidental [facility] (unintentional), initial encounter 2020-05-15 00:00:00 Alcohol intoxication delirium [facility] 2020-05-15 00:00:00 Accidental narcotic poisoning [facility] Primary [facility] [place] [facility] 2020-05-22 22:40 MAJOR DEPRESSIVE DISORDER, [facility] SINGLE EPISODE, UNSPECIFIED 2020-05-22 22:40 ESSENTIAL [facility]PRIMARY[facility] HYPERTENSION 2020-05-22 22:40 HYPOTENSION, UNSPECIFIED [facility] 2020-05-22 22:40 ABRASION OF SCALP, INITIAL [facility] ENCOUNTER 2020-05-22 22:40 POISONING BY OT OPIOIDS, [facility] INTENTIONAL SELF-HARM, INIT ENCNTR 2020-05-22 22:40 POISN BY [facility] ANTIEPLPTC AND [facility] SED-HYPNTC DRUGS, SLF-HRM, INIT 2020-05-22 22:40 POISONING BY BETA-ADRENOCPT [facility] ANTAGONISTS, SELF-HARM, INIT 2020-05-22 22:[address] [facility] OCCURRENCE OF THE EXTERNAL CAUSE 2020-05-22 22:40 CONTACT W AND EXPOSURE TO [facility] VIRAL COMMUNICABLE DISEASES 2020-05-22 22:40 DO NOT RESUSCITATE [facility] 2020-05-22 22:40 ALCOHOL DEPENDENCE, [facility] UNCOMPLICATED 2020-05-22 22:40 MAJOR DEPRESSIVE DISORDER, [facility] SINGLE EPISODE, UNSPECI 2020-05-22 22:40 POISONING BY OT OPIOIDS, [facility] INTENTIONAL SELF-HARM, I 2020-05-22 22:40 POISN BY [facility] ANTIEPLPTC AND [facility] SED-HYPNTC DRUGS, SLF- 2020-05-22 22:40 POISONING BY BETA-ADRENOCPT [facility] ANTAGONISTS, SELF-HARM 2020-05-22 22:40 OTHER FALL ON SAME LEVEL, [facility] INITIAL ENCOUNTER 2020-05-22 22:[address] [facility] OCCURRENCE OF THE EXTE 2020-05-22 22:40 CONTACT W AND EXPOSURE TO [facility] VIRAL COMMUNICABLE D 2020-06-01 19:48 PERSONS ENCOUNTERING HEALTH [facility] SERVICES IN OTH CIRCUMSTANCES 2020-06-01 20:06 ALCOHOL ABUSE WITH [facility] INTOXICATION, UNSPECIFIED 2020-06-01 20:06 DO NOT RESUSCITATE [facility] [place] 2020-06-01 20:06 ESSENTIAL [facility]PRIMARY[facility] HYPERTENSION 2020-06-07 11:15 HISTORY OF FALLING [facility] 2020-06-12 18:00 CHEST PAIN, UNSPECIFIED [facility] 2020-06-12 18:00 DO NOT RESUSCITATE [facility] 2020-06-13 21:56 ALCOHOL DEPENDENCE WITH [facility] INTOXICATION, UNCOMPLICATE 2020-06-13 21:56 ALCOHOL DEPENDENCE WITH [facility] WITHDRAWAL, UNSPECIFIED 2020-06-13 21:56 ALCOHOLIC GASTRITIS WITHOUT [facility] BLEEDING 2020-06-13 21:56 DO NOT RESUSCITATE [facility] Allergies date description facility Poison Dionna [facility] known [facility] Dust [facility] Grass [facility] CAT HAIR EX[facility]ACT [facility] C[facility]OPRAM [facility] CODEINE [facility] DOXYCYCLINE [facility] FENTANYL [facility] HYDROCODONE [facility] KETAMINE [facility] MORPHINE [facility] OXYCODONE [facility] PREDNISONE [facility] PREGABALIN [facility] OLANZAPINE [facility] NO KNOWN ENVIRONMENTAL ALLERGIES [facility] STATINS [facility] TETRACYCLINES \T\ RELATED [facility] Bee Stings [facility] STRAWBERRY [facility] TOMATO (SOLANUM LYCOPERSICUM) [facility] ADHESIVE TAPE [facility] ARIPIPRAZOLE [facility] HYDROCODONE-ACETAMINOPHEN [facility] MORPHINE [facility] OXYCODONE [facility] PAROXETINE HCL [facility] PENICILLINS [facility] NO KNOWN ALLERGIES [facility] NO ALLERGY INFORMATION AVAILABLE [facility] IODINE AND IODIDE CONTAINING PRODUCTS [facility] PENICILLINS [facility] TETRACYCLINES [facility] SULFA (SULFONAMIDE ANTIBIOTICS) [facility] INFLUENZA VIRUS VACCINES [facility] NO KNOWN ALLERGIES [facility] LATEX [facility] PREGABALIN [facility] PITAVASTATIN [facility] LURASIDONE [facility] LINAGLIPTIN [facility] CODEINE [facility] HYDROCODONE [facility] ASPIRIN [facility] VALPROIC ACID [facility] TREE POLLEN-JUNIPER, [facility] PSEUDOEPHEDRINE HCL [facility] ALOE VERA [facility] JUNIPER TAR [facility] IBUPROFEN [facility] ASPARTAME [facility] AMPICILLIN [facility] CEPHALEXIN [facility] ERYTHROMYCIN BASE [facility] IMIPENEM [facility] CIPROFLOXACIN [facility] CLARITHROMYCIN [facility] SIMVASTATIN [facility] AZITHROMYCIN [facility] ATORVASTAT[facility] LISINOPRIL [facility] RIZATRIPTAN [facility] EZETIMIBE [facility] AMOXICILLIN-POT CLAVULANATE [facility] IMIPENEM-CILASTATIN [facility] Medi [facility] Center SULFAMETHOXAZOLE-TRIMETHOPRIM [facility] SUDAFED [place] DIVALPROEX [facility] ADHESIVE TAPE-SILICONES [facility] NITROFURANTOIN MONOHYD/M-CRYST [facility] NIXON inhibitors [facility] shellfish [facility] Cipro [facility] Botox [facility] Influenza Virus Vaccine [facility] hydroCHLOROthiazide [facility] lisinopril [facility] BEE VENOM [facility] MEPERIDINE [facility] OXYCODONE [facility] TALC [facility] NO KNOWN ALLERGIES [facility] NO KNOWN ENVIRONMENTAL ALLERGIES [facility] PENICILLINS [facility] OTHER [facility] NO KNOWN ALLERGIES [facility] PENICILLINS [facility] SULFA (SULFONAMIDE ANTIBIOTICS) [facility] NO KNOWN ALLERGIES [facility] OXYCODONE [facility] ASPIRIN [facility] PREDNISONE [facility] TENZIN [facility] GARLIC [facility] CLARITHROMYCIN [facility] METHADONE [facility] PENICILLIN G [facility] TIZANIDINE [facility] BUCKWHEAT [facility] LATEX [facility] HYDROCODONE-ASPIRIN [facility] BUPRENORPHINE-NALOXONE [facility] edical Center lisinopril [facility] SULFA (SULFONAMIDE ANTIBIOTICS) [facility] SUMATRIPTAN [facility] [id number] ANTIMIGRAINE AGENTS [facility] SULFA (SULFONAMIDE ANTIBIOTICS) [facility] NO KNOWN ALLERGIES [facility] FLUTICASONE PROPIONATE [facility] lisinopril [facility] Medications date description facility 2020-03-28 00:00:[address] [facility] [place] [facility] 2020-03-28 00:00:00 null [facility] [place] [facility] 2020-03-28 00:00:00 PANCRELIPASE ([id number]) [facility] [place] [facility] 2020-03-28 00:00:00 PANCRELIPASE ([id number]) [facility] [place] [facility] 2020-03-28 00:00:00 null [facility] [place] [facility] 2020-03-28 00:00:00 null [facility] [place] [facility] 2020-03-28 00:00:00 PANCRELIPASE ([id number]) [facility] [place] [facility] 2020-03-28 00:00:00 PANCRELIPASE ([id number]) [facility] [place] [facility] Results Social History date description facility 2020-03-28 00:00:00 Former smoker [facility] [place] [facility] date description facility 2020-05-11 00:00:00 Former smoker [facility] [place] [facility] Social History date description facility 2020-03-28 00:00:00 Former smoker [facility] [place] [facility] date description facility 2020-05-11 00:00:00 Former smoker [facility] [place] [facility] date description facility [id number]
== END 2020-06-12 17:43 | disposition critical access hospital (66) ==
LOC: EMS 17:42
PROVIDERS: ATTEND Surgery
DX: R07.9 Chest pain, unspecified (principal)
CPT/HCPCS: A0425; A0427

== ENCOUNTER 2020-06-12 18:00 | Emergency (ER) | payer MEDICARE, MEDICAID ==
[2020-06-12 19:14] LABS: BASOPHILS % (AUTO) 0.7 %; EOSINOPHILS # (AUTO) 0.2 10^3/uL (0.0-0.7); EOSINOPHILS % (AUTO) 5.3 %; HCT - HEMATOCRIT 41.7 % (42.0-52.0); HGB - HEMOGLOBIN 14.9 g/dL (14.0-18.0); LYMPHOCYTES # (AUTO) 1.9 10^3/uL (1.5-3.5); LYMPHOCYTES % (AUTO) 46.3 %; MEAN CORPUSCULAR HEMOGLOBIN 34.3 pg (27.0-31.0); MEAN CORPUSCULAR HGB CONC 35.7 g/dL (32.0-36.0); MEAN CORPUSCULAR VOLUME 96.1 fL (80.0-94.0); MEAN PLATELET VOLUME 9.1 fL (7.4-11.4); MONOCYTES # (AUTO) 0.6 10^3/uL (0.0-1.0); MONOCYTES % (AUTO) 14.1 %; NEUTROPHILS # (AUTO) 1.4 10^3/uL (1.5-6.6); NEUTROPHILS % (AUTO) 33.4 %; PLT - PLATELET COUNT 192 10^3/uL (130-450); RED BLOOD COUNT 4.34 10^6/uL (4.70-6.10); RED CELL DISTRIBUTION WIDTH 12.8 % (12.0-15.0); WHITE BLOOD COUNT 4.2 x10^3/uL (4.8-10.8)
--- NOTE | 2020-06-12 19:14 | XRAY Report ---
PROCEDURE: Chest 1 View X-Ray INDICATIONS: Chest pain TECHNIQUE: One view of the chest was acquired. COMPARISON: CXR 05/11/2020. Lung apices on CT cervical spine 04/24/2020. FINDINGS: Surgical changes and devices: None. Lungs and pleura: No pleural effusions or pneumothorax. Lungs are clear. Mediastinum: Mediastinal contours appear normal. Heart size is normal. Bones and chest wall: No suspicious bony lesions. Prior bilateral rib fractures. Overlying soft tiss ues appear unremarkable. IMPRESSION: No acute cardiopulmonary abnormality. Reviewed by: Cam Torres MD on 06/12/2020 6:[address] [facility] Approved by: Cam Torres MD on 06/12/2020 6:[address] [facility] Station ID: [id number]
--- NOTE | 2020-06-12 19:18 | ED Physician Documentation ---
PD HPI CHEST PAIN - Stated complaint Stated Complaint: ETOH/CP - Chief complaint Chief Complaint: Cardiac - History obtained from History obtained from: Patient - History of Present Illness Timing - onset: How many hours ago (1), Today Timing - onset during: Rest Timing - details: Abrupt onset, Waxing and waning Pain level now: 4 Quality: Pain Location: Substernal Radiation: No: Jaw, Neck, Back, Abdominal, Left upper extremity, Right upper extremity Improved by: ASA Worsened by: Other (no exacerbating factors) Associated symptoms: Shortness of air Similar symptoms before: Has not had sx before Review of Systems Constitutional: reports: Reviewed and negative Cardiac: reports: Chest pain / pressure. denies: Palpitations Respiratory: reports: Dyspnea. denies: Cough GI: reports: Reviewed and negative : reports: Reviewed and negative PD PAST MEDICAL HISTORY - Past Medical History Past Medical History: Yes Cardiovascular: Hypertension, High cholesterol Respiratory: Sleep apnea, CPAP use Neuro: Headaches, Other Endocrine/Autoimmune: None, Other GI: GERD, Pancreatitis, Cirrhosis : Incontinence HEENT: None Psych: Depression, Anxiety, Panic attacks, Claustrophobia Musculoskeletal: Osteoarthritis Derm: None - Past Surgical History Past Surgical History: Yes Ortho: Hip replacement, Arthroscopic surgery HEENT: Tracheostomy - Present Medications Home Medications: Ambulatory Orders Medication Instructions Recorded Confirmed Thiamine HCl [Vitamin B-1] 100 mg PO DAILY #30 tablet 08/17/18 06/13/20 Furosemide [Lasix] 40 mg PO DAILY 08/19/19 06/13/20 Cholecalciferol [Vitamin D3] 1,000 units PO DAILY 01/17/20 06/13/20 Gabapentin [Neurontin] 600 mg PO TID 01/17/20 06/13/20 Lactulose 30 gm PO TID 01/17/20 06/13/20 Multivitamin W/Minerals [Theragran 1 each PO DAILY 01/17/20 06/13/20 M] Propranolol [Inderal] 30 mg PO BID 01/17/20 06/13/20 Sucralfate [Carafate] 1 gm PO BIDAC 01/17/20 06/13/20 Tamsulosin [Flomax] 0.4 mg PO DAILY 01/17/20 06/13/20 buPROPion [Wellbutrin Sr] 150 mg PO DAILY #30 tablet 02/21/20 06/13/20 Famotidine [Pepcid] 40 mg PO DAILY 06/14/20 06/14/20 LORazepam [Ativan] 1 mg PO QID 06/14/20 06/14/20 Lipase/Protease/Amylase [Emilyon Dr 1 cap PO TIDWM 06/14/20 06/14/20 6,000 Units Capsule] Ondansetron Odt [Zofran] 4 mg TL Q6H PRN #10 tablet 06/14/20 Pantoprazole Sodium 40 mg PO DAILY 06/14/20 06/14/20 Sucralfate [Carafate] 1 gm PO ACHS #30 tablet 06/14/20 chlordiazePOXIDE [Librium] 25 mg PO Q6H PRN #25 capsule 06/14/20 oxyCODONE [Roxicodone] 2.5 mg PO QID PRN 06/14/20 06/14/20 - Allergies Allergies/Adverse Reactions: Allergies Allergy/AdvReac Type Severity Reaction Status Date / Time lisinopril Allergy Mild Anaphylaxis Verified 06/13/20 22:12 - Social History Does the pt smoke?: No Smoking Status: Never smoker Does the pt drink ETOH?: Yes ETOH Use: Liquor Does the pt have substance abuse?: Yes - Immunizations Immunizations are current?: Yes Immunizations: Other immun not current - POLST Patient has POLST: No POLST Status: DNR (pt clearly state to me it is DNR, Pt's mother at the bedside did not say no.) PD ED PE NORMAL - Vitals Vital signs reviewed: Yes - General General: 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, No acute distress, Well developed/nourished - Neck Neck: Supple, no meningeal sign - Cardiac Cardiac: RRR, No murmur, No gallop, No rub - Respiratory Respiratory: No respiratory distress, Clear bilaterally - Abdomen Abdomen: Soft, Non tender - Derm Derm: Normal color, Warm and dry - Extremities Extremities: No edema Results - Vitals Vitals: Oxygen O2 Source Room air - EKG (time done) No standard instances Rate: Rate (enter#) (93) Rhythm: NSR [place]: Normal Intervals: Normal IN QRS: Normal Ischemia: Q waves (V1, V2) - Labs Labs: Laboratory Tests 06/12/20 06/12/20 06/12/20 19:08 19:08 19:08 WBC 4.2 L RBC 4.34 L Hgb 14.9 Hct 41.7 L MCV 96.1 H MCH 34.3 H MCHC 35.7 RDW 12.8 Plt Count 192 MPV 9.1 Neut # (Auto) 1.4 L Lymph # (Auto) 1.9 [place] # (Auto) 0.6 Eos # (Auto) 0.2 Baso # (Auto) 0.0 Absolute Nucleated RBC 0.00 Nucleated RBC % 0.0 Sodium 137 Potassium 3.0 L Chloride 87 L Carbon Dioxide 28 Anion Gap 22.0 H BUN 12 Creatinine 0.8 Estimated GFR (MDRD) 100 Glucose 105 H Calcium 10.1 Total Bilirubin 0.7 AST 28 ALT 18 Alkaline Phosphatase 111 Troponin I High Sens < 2.3 L Total Protein 8.1 Albumin 4.7 Globulin 3.4 Albumin/Globulin Ratio 1.4 Lipase 15 L Ethyl Alcohol 157.9 - Rads (name of study) chest xray Radiology: Prelim report reviewed, See rad report PD MEDICAL DECISION MAKING - ED course Complexity details: reviewed old records, reviewed results, re-evaluated patient, considered differential, d/w patient ED course: reassuring ED tests, including EKG (no acute/emergent findings), blood tests, CXR. his symptoms resolved shortly after ED arrival and he requests d/c home. encouraged to return if worse, f/u with PMD Departure - Departure Disposition: 01 Home, Self Care Clinical Impression: Chest pain Qualifiers: Chest pain type: unspecified Qualified Code(s): R07.9 - Chest pain, unspecified Condition: Good Instructions: ED Chest Pain Atypical Unkn Cause Follow-Up: Renetta Coppola PA [Primary Care Provider] - Discharge Date/Time: 06/12/20 21:02
[2020-06-12 19:34] LABS: ALBUMIN 4.7 g/dL (3.2-5.5); ALBUMIN/GLOBULIN RATIO 1.4 (1.0-2.2); BILIRUBIN,TOTAL 0.7 mg/dL (0.2-1.0); CALCIUM 10.1 mg/dL (8.5-10.3); CREATININE 0.8 mg/dL (0.6-1.2); ETOH - ETHANOL 157.9 mg/dL; TOTAL PROTEIN 8.1 g/dL (6.7-8.2)
[2020-06-12 21:02] VITALS: BP 116/93
--- OUTSIDE RECORDS SUMMARY | 2020-06-20 00:27 | EXTERNAL MEDICAL SUMMARY RPT | Continuity of Care Document ---
: Demographics Phone Unavailable Preferred Language French Marital Status Unknown Sabianism Affiliation Unknown Race Unknown Ethnic Group Unknown Author Organization [place] Address [address] [phone] Phone Care Team Providers Name Role Phone Vincenzo PRIEST, Unavailable Unavailable Renetta HINTON Holiday, Unavailable Unavailable HolRenteta unger Unavailable Unavailable VINCENZO BANKS Unavailable Unavailable Sujit, Rah Unavailable Unavailable Problems date description facility 2019-08-19 17:36 IRON DEFICIENCY ANEMIA, [facility] UNSPECIFIED 2019-08-19 17:36 PURE HYPERCHOLESTEROLEMIA, [facility] UNSPECIFIED 2019-08-19 17:36 FLUID OVERLOAD, UNSPECIFIED [facility] 2019-08-19 17:36 MAJOR DEPRESSIVE DISORDER, [facility] SINGLE EPISODE, UNSPECIFIED 2019-08-19 17:36 OTHER SPECIFIED ANXIETY [facility] DISORDERS 2019-08-19 17:36 ALCOHOLIC HEPATITIS WITHOUT [facility] ASCITES 2019-08-19 17:36 ALCOHOLIC HEPATIC FAILURE [facility] WITHOUT COMA 2019-08-19 17:36 PAIN IN RIGHT HIP [facility] 2019-08-19 17:36 ACUTE KIDNEY FAILURE, [facility] UNSPECIFIED 2019-08-19 17:36 NOCTURIA [facility] 2019-08-19 17:36 HEADACHE [facility] 2019-08-19 17:36 UNSPECIFIED INJURY OF THORAX, [facility] INITIAL ENCOUNTER 2019-08-19 17:36 UNSPECIFIED INJURY OF [facility] UNSPECIFIED ANKLE, INITIAL ENCOUNTER 2019-08-19 17:36 UNSPECIFIED FALL, INITIAL [facility] ENCOUNTER 2019-08-19 17:36 BLOOD ALCOHOL LEVEL OF 120-199 [facility] MG/100 ML 2019-08-19 17:36 OTHER DRUG ENFORCEMENT AGENT (CURRENT) DRUG [facility] THERAPY 2019-08-19 17:36 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 2019-08-19 17:36 HISTORY OF FALLING [facility] 2019-08-19 17:36 ALCOHOL DEPENDENCE WITH [facility] INTOXICATION, UNSPECIFIED 2019-08-19 17:36 CLAUSTROPHOBIA [facility] 2019-08-19 17:36 PANIC DISORDER [EPISODIC [facility] PAROXYSMAL ANXIETY] 2019-08-19 17:36 SLEEP APNEA, UNSPECIFIED [facility] 2019-08-19 17:36 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, UNSPECIFIED 2019-08-19 17:36 OTHER CHRONIC PAIN [facility] 2019-08-19 17:36 [facility] 2019-08-19 17:36 GASTRO-ESOPHAGEAL REFLUX [facility] DISEASE WITHOUT ESOPHAGITIS 2019-08-19 17:36 ALCOHOLIC HEPATITIS WITH [facility] ASCITES 2019-08-19 17:36 ALCOHOLIC CIRRHOSIS OF LIVER [facility] WITH ASCITES 2019-08-19 17:36 UNSPECIFIED OSTEOARTHRITIS, [facility] UNSPECIFIED SITE 2019-08-19 17:36 BENIGN PROSTATIC HYPERPLASIA [facility] WITH LOWER URINARY TRACT SYMP 2019-08-19 17:36 ATAXIA, [facility] 2019-08-19 17:36 FREQUENCY OF MICTURITION [facility] 2019-08-19 17:36 ABRASION OF UNSPECIFIED PART OF [facility] HEAD, INITIAL ENCOUNTER 2019-08-19 17:36 PERSONAL HISTORY OF DIS OF THE [facility] NERVOUS SYS AND SENSE ORGANS 2019-08-19 17:36 PRESENCE 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 2020-01-17 10:47 PURE HYPERCHOLESTEROLEMIA, [facility] UNSPECIFIED 2020-01-17 10:47 ALCOHOL ABUSE, UNCOMPLICATED [facility] 2020-01-17 10:47 ALCOHOL DEPENDENCE WITH [facility] INTOXICATION, UNSPECIFIED 2020-01-17 10:47 MAJOR DEPRESSIVE DISORDER, [facility] SINGLE EPISODE, UNSPECIFIED 2020-01-17 10:47 CLAUSTROPHOBIA [facility] 2020-01-17 10:47 PANIC DISORDER [EPISODIC [facility] PAROXYSMAL ANXIETY] 2020-01-17 10:47 SLEEP APNEA, UNSPECIFIED [facility] 2020-01-17 10:47 ESSENTIAL (PRIMARY) [facility] HYPERTENSION 2020-01-17 10:47 GASTRO-ESOPHAGEAL REFLUX [facility] DISEASE WITHOUT ESOPHAGITIS 2020-01-17 10:47 UNSPECIFIED CIRRHOSIS OF LIVER [facility] 2020-01-17 10:47 ACUTE PANCREATITIS WITHOUT [facility] NECROSIS OR INFECTION, [facility] 2020-01-17 10:47 OTHER CHRONIC PANCREATITIS [facility] 2020-01-17 10:47 PSEUDOCYST OF PANCREAS [facility] 2020-01-17 10:47 LOWER ABDOMINAL PAIN, [facility] dical [place] UNSPECIFIED 2020-01-17 10:47 UNSPECIFIED URINARY [facility] INCONTINENCE 2020-01-17 10:47 BLOOD ALCOHOL LEVEL OF 240 [facility] MG/100 ML OR MORE 2020-01-17 10:47 DO NOT RESUSCITATE [facility] 2020-01-17 10:47 DRUG ENFORCEMENT AGENT (CURRENT) USE OF [facility] INHALED STEROIDS 2020-01-17 10:47 GROUP HOME (CURRENT) USE OF [facility] SYSTEMIC STEROIDS 2020-01-17 10:47 PERSONAL HISTORY OF DIS OF THE [facility] NERVOUS SYS AND SENSE ORGANS 2020-01-17 10:47 PRESENCE 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 2020-01-18 13:00 ACUTE PANCREATITIS WITH [facility] UNINFECTED NECROSIS, UNSPECIFIED 2020-02-14 16:00 UNSTEADINESS ON FEET [facility] 2020-02-14 16:00 WEAKNESS [facility] 2020-02-14 16:00 HISTORY OF FALLING [facility] 2020-02-17 15:28 UNSTEADINESS ON FEET [facility] 2020-02-17 15:28 SLOWNESS AND POOR [facility] RESPONSIVENESS 2020-02-17 15:47 DISORIENTATION, UNSPECIFIED [facility] 2020-02-17 15:47 POISONING BY UNSP [facility] DRUG/MEDS/BIOL SUBST, UNDETERMINED, INIT 2020-02-17 15:47 DO NOT RESUSCITATE [facility] 2020-02-21 21:53 ANXIETY DISORDER, UNSPECIFIED [facility] 2020-02-21 21:53 UNSPECIFIED ABDOMINAL PAIN [facility] 2020-02-21 21:53 OTHER PROBLEMS RELATED TO [facility] LIFESTYLE 2020-02-21 22:11 MAJOR DEPRESSIVE DISORDER, [facility] SINGLE EPISODE, UNSPECIFIED 2020-02-21 22:11 ANXIETY DISORDER, [facility] 2020-02-21 22:11 ALCOHOL ABUSE WITH [facility] INTOXICATION, UNSPECIFIED 2020-02-21 22:11 MAJOR DEPRESSIVE DISORDER, [facility] SINGLE EPISODE, UNSPECI 2020-02-21 22:11 DO NOT RESUSCITATE [facility] 2020-02-24 20:42 PERSONS ENCOUNTERING Merged with [facility] SERVICES IN OTH CIRCUMSTANCES 2020-02-24 20:59 ALCOHOL DEPENDENCE, [facility] UNCOMPLICATED 2020-02-24 20:59 DISORIENTATION, UNSPECIFIED [facility] 2020-02-24 20:59 DO NOT RESUSCITATE [facility] 2020-02-29 16:24 PERSONS ENCOUNTERING Merged with [facility] SERVICES IN OTH CIRCUMSTANCES 2020-03-08 14:18 UNSTEADINESS ON FEET [facility] 2020-03-08 14:18 WEAKNESS [facility] 2020-03-08 14:18 HISTORY OF FALLING [facility] 2020-03-23 12:02 CALCULUS OF GALLBLADDER W/O [facility] CHOLECYSTITIS W/O OBSTRUCTION 2020-03-23 12:02 OTHER CHRONIC PANCREATITIS [facility] 2020-03-23 12:02 OTHER ASCITES [facility] 2020-03-23 13:00 OTHER CHRONIC PANCREATITIS [facility] 2020-03-23 21:18 [facility] 2020-03-23 21:18 AUDITORY HALLUCINATIONS [facility] 2020-03-23 21:34 ALCOHOL ABUSE, UNCOMPLICATED [facility] 2020-03-23 21:34 CALCULUS OF GALLBLADDER W/O [facility] CHOLECYSTITIS W/O OBST 2020-03-23 21:34 BLOOD ALCOHOL LEVEL OF 200-239 [facility] MG/100 ML 2020-03-23 21:34 DO NOT RESUSCITATE [facility] 2020-03-23 21:34 DIPLOPIA [facility] 2020-03-23 21:34 CALCULUS OF GALLBLADDER W/O [facility] CHOLECYSTITIS W/O OBSTRUCTION 2020-03-23 21:34 OTHER CHRONIC PANCREATITIS [facility] 2020-03-23 21:34 OTHER ASCITES [facility] 2020-03-28 00:00:00 [facility] 2020-03-28 00:00:00 Alcohol [facility] 2020-03-28 00:00:00 Health-related behavior [facility] [place] [facility] 2020-03-28 00:00:00 Exercise [facility] [place] [facility] 2020-03-28 00:00:00 [facility] use [facility] [place] [facility] 2020-03-28 00:00:00 [facility] [place] [facility] 2020-03-28 00:00:00 Tobacco use and exposure [facility] Primary [facility] [place] [facility] 2020-03-28 00:00:00 Details of drug misuse behavior id[facility] Primary Care [place] [facility] 2020-04-03 11:45 UNSTEADINESS ON FEET [facility] 2020-04-03 11:45 WEAKNESS [facility] 2020-04-03 11:45 HISTORY OF FALLING [facility] 2020-04-11 14:15 HISTORY OF FALLING [facility] 2020-04-17 16:15 HISTORY OF FALLING [facility] 2020-04-24 16:41 ESSENTIAL (PRIMARY) [facility] HYPERTENSION 2020-04-24 16:41 RIGHT UPPER QUADRANT PAIN [facility] 2020-04-24 16:41 STRAIN OF MUSCLE, FASCIA AND [facility] TENDON AT NECK LEVEL, 2020-04-24 16:41 CONTUSION OF RIGHT FRONT WALL [facility] OF THORAX, INITIAL E 2020-04-24 16:41 OTHER FALL ON SAME LEVEL, [facility] INITIAL ENCOUNTER 2020-04-24 16:[address] [facility] Medical [place] PLACE 2020-04-24 16:41 ALCOHOL ABUSE WITH [facility] INTOXICATION, UNSPECIFIED 2020-04-24 16:41 OTHER CHEST PAIN [facility] 2020-04-24 16:41 CONTUSION OF SCALP, INITIAL [facility] ENCOUNTER 2020-04-24 16:41 STRAIN OF MUSCLE, FASCIA [facility] TENDON AT NECK LEVEL, INIT 2020-04-24 16:41 CONTUSION OF RIGHT FRONT WALL [facility] OF THORAX, INITIAL ENCOUNTER 2020-04-24 16:41 CONTUSION OF RIGHT HIP, INITIAL [facility] ENCOUNTER 2020-04-24 16:41 DO NOT RESUSCITATE [facility] 2020-05-01 00:00:00 Screening examination for [facility] unspecified infectious disease [place] [facility] 2020-05-01 00:00:00 [facility] for [facility] infectious and parasitic [facility] diseases, unspecified 2020-05-01 00:00:00 COVID19 [facility] 2020-05-01 00:00:00 [facility] [place] [facility] 2020-05-11 00:00:00 Insomnia, unspecified [facility] 2020-05-11 00:00:00 Insomnia [facility] 2020-05-11 00:00:00 Health-related behavior [facility] Primary Care [facility] 2020-05-11 00:00:00 Tobacco use and exposure [facility] Primary Care [facility] 2020-05-11 00:00:00 Exercise [facility] 2020-05-11 00:00:00 Details of drug misuse behavior [facility] [place] [facility] 2020-05-11 00:00[facility] 2020-05-11 00:00:00 Former smoker [facility] 2020-05-11 22:30 RESPIRATORY ARREST [facility] 2020-05-11 22:48 DEHYDRATION [facility] 2020-05-11 22:48 ALCOHOL ABUSE WITH INTOXICATION [facility] DELIRIUM 2020-05-11 22:48 ESSENTIAL (PRIMARY) [facility] HYPERTENSION 2020-05-11 22:48 HYPOXEMIA [facility] 2020-05-11 22:48 POISONING BY UNSP NARCOTICS, [facility] ACCIDENTAL, INIT 2020-05-11 22:48 DO NOT RESUSCITATE [facility] 2020-05-11 22:48 TRANSIENT ALTERATION OF [facility] AWARENESS 2020-05-11 22:48 SYNCOPE AND COLLAPSE [facility] ical [place] 2020-05-15 00:00:00 Alcohol withdrawal delirium [facility] Care [facility] 2020-05-15 00:00:00 Alcohol use, unspecified with [facility] Primary [facility] intoxication delirium [facility] 2020-05-15 00:00:00 Poisoning by unspecified [facility] Primary Care narcotics, accidental [facility] (unintentional), initial encounter 2020-05-15 00:00:00 Alcohol intoxication [facility] 2020-05-15 00:00:00 Accidental narcotic poisoning [facility] Primary [facility] [place] [facility] 2020-05-22 22:40 MAJOR DEPRESSIVE DISORDER, [facility] SINGLE EPISODE, UNSPECIFIED 2020-05-22 22:40 ESSENTIAL (PRIMARY) [facility] HYPERTENSION 2020-05-22 22:40 HYPOTENSION, UNSPECIFIED [facility] 2020-05-22 22:40 ABRASION OF SCALP, INITIAL [facility] ENCOUNTER 2020-05-22 22:40 POISONING BY OT OPIOIDS, [facility] INTENTIONAL SELF-HARM, INIT ENCNTR 2020-05-22 22:40 POISN BY [facility] ANTIEPLPTC AND [facility] SED-HYPNTC DRUGS, SLF-HRM, INIT 2020-05-22 22:40 POISONING BY BETA-ADRENOCPT [facility] ANTAGONISTS, SELF-HARM, INIT 2020-05-22 22:[address] OF [facility] OCCURRENCE OF THE EXTERNAL CAUSE 2020-05-22 22:40 CONTACT W AND EXPOSURE TO [facility] VIRAL COMMUNICABLE DISEASES 2020-05-22 22:40 DO NOT RESUSCITATE [facility] 2020-05-22 22:40 ALCOHOL DEPENDENCE, [facility] UNCOMPLICATED 2020-05-22 22:40 MAJOR DEPRESSIVE DISORDER, [facility] SINGLE EPISODE, UNSPECI 2020-05-22 22:40 POISONING BY OT OPIOIDS, [facility] INTENTIONAL SELF-HARM, I 2020-05-22 22:40 POISN BY [facility] ANTIEPLPTC AND [facility] SED-HYPNTC DRUGS, SLF- 2020-05-22 22:40 POISONING BY BETA-ADRENOCPT [facility] ANTAGONISTS, SELF-HARM 2020-05-22 22:40 OTHER FALL ON SAME LEVEL, [facility] INITIAL ENCOUNTER 2020-05-22 22:[address] OF [facility] OCCURRENCE OF THE EXTE 2020-05-22 22:40 CONTACT W AND EXPOSURE TO [facility] VIRAL COMMUNICABLE D 2020-06-01 19:48 PERSONS ENCOUNTERING HEALTH [facility] SERVICES IN OTH CIRCUMSTANCES 2020-06-01 20:06 ALCOHOL ABUSE WITH [facility] Medic al Center INTOXICATION, UNSPECIFIED 2020-06-01 20:06 DO NOT RESUSCITATE [facility] Medic al [place] 2020-06-01 20:06 ESSENTIAL (PRIMARY) [facility] HYPERTENSION 2020-06-07 11:15 HISTORY OF FALLING [facility] Medic al Center 2020-06-12 18:00 CHEST PAIN, UNSPECIFIED [facility] 2020-06-12 18:00 DO NOT RESUSCITATE [facility] al Center 2020-06-13 21:56 ALCOHOL DEPENDENCE WITH [facility] INTOXICATION, UNCOMPLICATE 2020-06-13 21:56 ALCOHOL DEPENDENCE WITH [facility] WITHDRAWAL, UNSPECIFIED 2020-06-13 21:56 ALCOHOLIC GASTRITIS WITHOUT [facility] BLEEDING 2020-06-13 21:56 DO NOT RESUSCITATE [facility] al Center Allergies date description facility Poison Dionna [facility] No known [facility] Grass [facility] CAT HAIR EXTRACT [facility] CITALOPRAM [facility] CODEINE [facility] DOXYCYCLINE [facility] FENTANYL [facility] HYDROCODONE [facility] KETAMINE [facility] MORPHINE [facility] OXYCODONE [facility] PREDNISONE [facility] PREGABALIN [facility] OLANZAPINE [facility] NO KNOWN ENVIRONMENTAL ALLERGIES [facility] STATINS [facility] Center TETRACYCLINES \T\ RELATED [facility] Bee Stings [facility] Center STRAWBERRY [facility] Center TOMATO (SOLANUM LYCOPERSICUM) [facility] ADHESIVE TAPE [facility] ARIPIPRAZOLE [facility] HYDROCODONE-ACETAMINOPHEN [facility] MORPHINE [facility] OXYCODONE [facility] PAROXETINE HCL [facility] PENICILLINS [facility] NO KNOWN ALLERGIES [facility] Center NO ALLERGY INFORMATION AVAILABLE [facility] IODINE AND IODIDE CONTAINING PRODUCTS [facility] PENICILLINS [facility] Center TETRACYCLINES [facility] SULFA (SULFONAMIDE ANTIBIOTICS) [facility] INFLUENZA VIRUS VACCINES [facility] NO KNOWN ALLERGIES [facility] Center LATEX [facility] PREGABALIN [facility] Center PITAVASTATIN [facility] LURASIDONE [facility] LINAGLIPTIN [facility] CODEINE [facility] HYDROCODONE [facility] ASPIRIN [facility] Center VALPROIC ACID [facility] Center TREE POLLEN-JUNIPER[facility] PSEUDOEPHEDRINE HCL [facility] Medi blaine Center ALOE VERA [facility] Center JUNIPER TAR [facility] IBUPROFEN [facility] ASPARTAME [facility] AMPICILLIN [facility] CEPHALEXIN [facility] ERYTHROMYCIN BASE [facility] IMIPENEM [facility] CIPROFLOXACIN [facility] Center CLARITHROMYCIN [facility] SIMVASTATIN [facility] AZITHROMYCIN [facility] ATORVASTATIN [facility] LISINOPRIL [facility] RIZATRIPTAN [facility] Center EZETIMIBE [facility] AMOXICILLIN-POT CLAVULANATE [facility] IMIPENEM-CILASTATIN [facility] Medi blaine Center SULFAMETHOXAZOLE-TRIMETHOPRIM [facility] SUDAFED [place] [facility] DIVALPROEX [facility] ADHESIVE TAPE-SILICONES [facility] NITROFURANTOIN MONOHYD/M-CRYST [facility] NIXON inhibitors [facility] shellfish [facility] Cipro [facility] Botox [facility] Influenza Virus Vaccine [facility] hydroCHLOROthiazide [facility] Medi blaine Center lisinopril [facility] BEE VENOM [facility] MEPERIDINE [facility] OXYCODONE [facility] TALC [facility] NO KNOWN ALLERGIES [facility] Center NO KNOWN ENVIRONMENTAL ALLERGIES [facility] PENICILLINS [facility] OTHER [facility] NO KNOWN ALLERGIES [facility] Center PENICILLINS [facility] Medic [facility] Center SULFA (SULFONAMIDE ANTIBIOTICS) [facility] NO KNOWN ALLERGIES [facility] Center OXYCODONE [facility] ASPIRIN [facility] PREDNISONE [facility] TENZIN [facility] GARLIC [facility] Center CLARITHROMYCIN [facility] METHADONE [facility] Center PENICILLIN G [facility] al Center TIZANIDINE [facility] Center BUCKWHEAT [facility] [facility] HYDROCODONE-ASPIRIN [facility] BUPRENORPHINE-NALOXONE [facility] ed[facility] Center lisinopril [facility] SULFA (SULFONAMIDE ANTIBIOTICS) [facility] SUMATRIPTAN [facility] [id number] ANTIMIGRAINE AGENTS [facility] SULFA (SULFONAMIDE ANTIBIOTICS) [facility] NO KNOWN ALLERGIES [facility] FLUTICASONE PROPIONATE [facility] lisinopril [facility] Medications date description facility 2020-03-28 00:00:00 null [facility] [place] [facility] 2020-03-28 00:00:00 null [facility] [place] [facility] 2020-03-28 00:00:00 PANCRELIPASE ([id number]) [facility] [place] [facility] 2020-03-28 00:00:00 PANCRELIPASE ([id number]) [facility] [place] [facility] 2020-03-28 00:00:00 null [facility] [place] [facility] 2020-03-28 00:00:00 null [facility] [place] [facility] 2020-03-28 00:00:00 PANCRELIPASE ([id number]) [facility] [place] [facility] 2020-03-28 00:00:00 PANCRELIPASE ([id number]) [facility] [place] [facility] Results Social History date description facility 2020-03-28 00:00:00 Former smoker [facility] [place] [facility] date description facility 2020-05-11 00:00:00 Former smoker [facility] [place] [facility] Social History date description facility 2020-03-28 00:00:00 Former smoker [facility] [place] [facility] date description facility 2020-05-11 00:00:00 Former smoker [facility] [place] [facility] date description facility [phone]
== END 2020-06-12 21:02 | disposition home or self-care (01) ==
LOC: EDUNIT# → ED 18:00
DX: R07.9 Chest pain, unspecified (principal); Z66 Do not resuscitate
CPT/HCPCS: 36415; 80053; 80320; 83690; 84484; 85025; 93005; 99284

== ENCOUNTER 2020-06-13 21:39 | Outpatient (CLI) | payer MEDICARE, MEDICAID ==
--- OUTSIDE RECORDS SUMMARY | 2020-06-20 01:07 | EXTERNAL MEDICAL SUMMARY RPT | Continuity of Care Document ---
: Demographics Phone Unavailable Preferred Language Yakut Marital Status Unknown Jain Affiliation Unknown Race Unknown Ethnic Group Unknown Author Organization [place] Address [address] [phone] Phone Care Team Providers Name Role Phone Anat, Renetta Unavailable Unavailable VINCENZO BANKS Unavailable Unavailable Renetta HINTON, Unavailable Unavailable Vincenzo PRIEST, Unavailable Unavailable Rah Beckett Unavailable Unavailable Problems date description facility 2019-08-19 17:36 IRON DEFICIENCY ANEMIA, [facility] UNSPECIFIED 2019-08-19 17:36 PURE HYPERCHOLESTEROLEMIA, [facility] UNSPECIFIED 2019-08-19 17:36 FLUID OVERLOAD, UNSPECIFIED [facility] 2019-08-19 17:36 MAJOR DEPRESSIVE DISORDER, [facility] SINGLE EPISODE, UNSPECIFIED 2019-08-19 17:36 OTHER SPECIFIED ANXIETY [facility] DISORDERS 2019-08-19 17:36 AL[facility]HOL[facility] HEPATITIS [facility] 2019-08-19 17:36 ALCOHOLIC HEPATIC FAILURE [facility] WITHOUT COMA 2019-08-19 17:36 PAIN IN RIGHT HIP [facility] 2019-08-19 17:36 ACUTE KIDNEY FAILURE, [facility] UNSPECIFIED 2019-08-19 17:36 NOCTURIA [facility] 2019-08-19 17:36 HEADACHE [facility] 2019-08-19 17:36 UNSPECIFIED INJURY OF THORAX, 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 2019-08-19 17:36 PERSONAL HISTORY OF NICOTINE [facility] DEPENDENCE 2019-08-19 17:36 HISTORY OF FALLING [facility] 2019-08-19 17:36 ALCOHOL DEPENDENCE WITH [facility] INTOXICATION, UNSPECIFIED 2019-08-19 17:36 CLAUSTROPHOBIA [facility] 2019-08-19 17:36 PANIC DISORDER [EPISODIC [facility] PAROXYSMAL ANXIETY] 2019-08-19 17:36 SLEEP APNEA, UNSPECIFIED [facility] 2019-08-19 17:36 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, UNSPECIFIED 2019-08-19 17:36 OTHER CHRONIC PAIN [facility] 2019-08-19 17:36 [facility] 2019-08-19 17:36 GASTRO-ESOPHAGEAL REFLUX [facility] DISEASE WITHOUT ESOPHAGITIS 2019-08-19 17:36 ALCOHOLIC HEPATITIS WITH [facility] ASCITES 2019-08-19 17:36 ALCOHOLIC CIRRHOSIS OF LIVER [facility] WITH ASCITES 2019-08-19 17:36 UNSPECIFIED OSTEOARTHRITIS, [facility] UNSPECIFIED SITE 2019-08-19 17:36 BENIGN PROSTATIC HYPERPLASIA [facility] WITH LOWER URINARY TRACT SYMP 2019-08-19 17:36 ATAXIA, [facility] 2019-08-19 17:36 FREQUENCY OF MICTURITION [facility] 2019-08-19 17:36 ABRASION OF UNSPECIFIED PART OF [facility] HEAD, INITIAL ENCOUNTER 2019-08-19 17:36 PERSONAL HISTORY OF DIS OF THE [facility] NERVOUS SYS AND SENSE ORGANS 2019-08-19 17:36 PRESENCE OF UNSPECIFIED [facility] ARTIFICIAL HIP JOINT 2020-01-17 10:47 PURE HYPERCHOLESTEROLEMIA, [facility] UNSPECIFIED 2020-01-17 10:47 ALCOHOL ABUSE, UNCOMPLICATED [facility] 2020-01-17 10:47 ALCOHOL DEPENDENCE WITH [facility] INTOXICATION, UNSPECIFIED 2020-01-17 10:47 MAJOR DEPRESSIVE DISORDER, [facility] SINGLE EPISODE, UNSPECIFIED 2020-01-17 10:47 CLAUSTROPHOBIA [facility] 2020-01-17 10:47 PANIC DISORDER [EPISODIC [facility] PAROXYSMAL ANXIETY] 2020-01-17 10:47 SLEEP APNEA, UNSPECIFIED [facility] 2020-01-17 10:47 ESSENTIAL (PRIMARY) [facility] HYPERTENSION 2020-01-17 10:47 GASTRO-ESOPHAGEAL REFLUX [facility] DISEASE WITHOUT ESOPHAGITIS 2020-01-17 10:47 UNSPECIFIED CIRRHOSIS OF LIVER [facility] 2020-01-17 10:47 ACUTE PANCREATITIS WITHOUT [facility] NECROSIS OR INFECTION, [facility]SP 2020-01-17 10:47 OTHER CHRONIC PANCREATITIS [facility] 2020-01-17 10:[address] [facility] 2020-01-17 10:47 LOWER ABDOMINAL PAIN, [facility] [place] UNSPECIFIED 2020-01-17 10:47 UNSPECIFIED URINARY 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 2020-02-14 16:00 WEAKNESS [facility] 2020-02-14 16:00 HISTORY OF FALLING [facility] 2020-02-17 15:28 UNSTEADINESS ON FEET [facility] 2020-02-17 15:28 SLOWNESS AND POOR [facility] RESPONSIVENESS 2020-02-17 15:47 DISORIENTATION, UNSPECIFIED [facility] 2020-02-17 15:47 POISONING BY UNSP [facility] DRUG/MEDS/BIOL SUBST, UNDETERMINED, INIT 2020-02-17 15:47 DO NOT RESUSCITATE [facility] 2020-02-21 21:53 ANXIETY DISORDER, UNSPECIFIED [facility] 2020-02-21 21:53 UNSPECIFIED ABDOMINAL PAIN [facility] 2020-02-21 21:53 OTHER PROBLEMS RELATED TO [facility] LIFESTYLE 2020-02-21 22:11 MAJOR DEPRESSIVE DISORDER, [facility] SINGLE EPISODE, UNSPECIFIED 2020-02-21 22:11 [facility]XIETY [facility] 2020-02-21 22:11 ALCOHOL ABUSE WITH [facility] INTOXICATION, UNSPECIFIED 2020-02-21 22:11 MAJOR DEPRESSIVE DISORDER, [facility] SINGLE EPISODE, UNSPECI 2020-02-21 22:11 DO NOT RESUSCITATE [facility] 2020-02-24 20:[address] [facility] SERVICES IN OTH CIRCUMSTANCES 2020-02-24 20:59 ALCOHOL DEPENDENCE, [facility] UNCOMPLICATED 2020-02-24 20:59 DISORIENTATION, UNSPECIFIED [facility] 2020-02-24 20:59 DO NOT RESUSCITATE [facility] 2020-02-29 16:[address] [facility] SERVICES IN OTH CIRCUMSTANCES 2020-03-08 14:18 UNSTEADINESS ON FEET [facility] 2020-03-08 14:18 WEAKNESS [facility] 2020-03-08 14:18 HISTORY OF FALLING [facility] 2020-03-23 12:02 CALCULUS OF GALLBLADDER W/O [facility] CHOLECYSTITIS W/O OBSTRUCTION 2020-03-23 12:02 OTHER CHRONIC PANCREATITIS [facility] 2020-03-23 12:02 OTHER ASCITES [facility] 2020-03-23 13:00 OTHER CHRONIC PANCREATITIS [facility] 2020-03-23 21:18 [facility] [place] 2020-03-23 21:18 AUDITORY HALLUCINATIONS [facility] 2020-03-23 21:34 ALCOHOL ABUSE, UNCOMPLICATED [facility] 2020-03-23 21:34 CALCULUS OF GALLBLADDER W/O [facility] CHOLECYSTITIS W/O OBST 2020-03-23 21:34 BLOOD ALCOHOL LEVEL OF 200-239 [facility] MG/100 ML 2020-03-23 21:34 DO NOT RESUSCITATE [facility] 2020-03-23 21:34 DIPLOPIA [facility] 2020-03-23 21:34 CALCULUS OF GALLBLADDER W/O [facility] CHOLECYSTITIS W/O OBSTRUCTION 2020-03-23 21:34 OTHER CHRONIC PANCREATITIS [facility] 2020-03-23 21:34 OTHER ASCITES [facility] 2020-03-28 00:00:00 [facility] 2020-03-28 00:00:00 Alcohol [facility] 2020-03-28 00:00:00 Health-related behavior [facility] [place] [facility] 2020-03-28 00:00:00 Exercise [facility] [place] [facility] 2020-03-28 00:00:00 [facility] use [facility] [place] [facility] 2020-03-28 00:00:00 [facility] sm[facility] [place] [facility] 2020-03-28 00:00:00 Tobacco use and exposure [facility] Primary [facility] [place] [facility] 2020-03-28 00:00:00 Details of drug misuse behavior [facility] [place] [facility] 2020-04-03 11:45 UNSTE[address]INESS [address] FEET [facility] 2020-04-03 11:45 [facility] 2020-04-03 11:45 HISTORY OF FALLING [facility] 2020-04-11 14:15 HISTORY OF FALLING [facility] 2020-04-17 16:15 HISTORY OF FALLING [facility] 2020-04-24 16:41 ESSENTIAL (PRIMARY) [facility] HYPERTENSION 2020-04-24 16:41 RIGHT UPPER QUADRANT PAIN [facility] 2020-04-24 16:41 STRAIN OF MUSCLE, FASCIA AND [facility] TENDON AT NECK LEVEL, 2020-04-24 16:41 CONTUSION OF RIGHT FRONT WALL [facility] OF THORAX, INITIAL E 2020-04-24 16:41 OTHER FALL ON SAME LEVEL, [facility] INITIAL ENCOUNTER 2020-04-24 16:[address] [facility] [place] [address] 2020-04-24 16:41 ALCOHOL ABUSE WITH [facility] INTOXICATION, UNSPECIFIED 2020-04-24 16:41 OTHER CHEST PAIN [facility] 2020-04-24 16:41 CONTUSION OF SCALP, INITIAL [facility] ENCOUNTER 2020-04-24 16:41 STRAIN OF MUSCLE, FASCIA [facility] TENDON AT NECK LEVEL, INIT 2020-04-24 16:41 CONTUSION OF RIGHT FRONT WALL [facility] OF THORAX, INITIAL ENCOUNTER 2020-04-24 16:41 CONTUSION OF RIGHT HIP, INITIAL [facility] ENCOUNTER 2020-04-24 16:41 DO NOT RESUSCITATE [facility] 2020-05-01 00:00:00 Screening examination for [facility] unspecified infectious disease [place] [facility] 2020-05-01 00:00:00 Encounter for screening for [facility] infectious and parasitic [facility] diseases, unspecified 2020-05-01 00:00:00 COVID19 [facility] 2020-05-01 00:00:00 Procedure [facility] [place] [facility] 2020-05-11 00:00:00 Insomnia, unspecified [facility] 2020-05-11 00:00:00 Insomnia [facility] 2020-05-11 00:00:00 Health-related behavior [facility] 2020-05-11 00:00:00 Tobacco use and exposure [facility] Primary Care [facility] 2020-05-11 00:00:00 Exercise [facility] 2020-05-11 00:00:00 Details of drug misuse behavior [facility] Primary Care [place] [facility] 2020-05-11 00:00:00 [facility] 2020-05-11 00:00:00 Former smoker [facility] 2020-05-11 22:30 RESPIRATORY ARREST [facility] 2020-05-11 22:48 DEHYDRATION [facility] 2020-05-11 22:48 ALCOHOL ABUSE WITH INTOXICATION [facility] DELIRIUM 2020-05-11 22:48 ESSENTIAL (PRIMARY) [facility] HYPERTENSION 2020-05-11 22:48 HYPOXEMIA [facility] 2020-05-11 22:48 POISONING BY UNSP NARCOTICS, [facility] ACCIDENTAL, INIT 2020-05-11 22:48 DO NOT RESUSCITATE [facility] 2020-05-11 22:48 TRANSIENT ALTERATION OF [facility] AWARENESS 2020-05-11 22:48 SYNCOPE AND COLLAPSE [facility] [place] 2020-05-15 00:00:00 Alcohol withdrawal delirium [facility] Care [facility] 2020-05-15 00:00:00 Alcohol use, unspecified with [facility] Primary [facility] intoxication delirium [facility] 2020-05-15 00:00:00 Poisoning by unspecified [facility] narcotics, accidental [facility] (unintentional), initial encounter 2020-05-15 00:00:00 Alcohol intoxication delirium [facility] 2020-05-15 00:00:00 Accidental narcotic poisoning [facility] Primary Care [place] [facility] 2020-05-22 22:40 MAJOR DEPRESSIVE DISORDER, [facility] SINGLE EPISODE, UNSPECIFIED 2020-05-22 22:40 ESSENTIAL (PRIMARY) [facility] HYPERTENSION 2020-05-22 22:40 HYPOTENSION, UNSPECIFIED [facility] 2020-05-22 22:40 ABRASION OF SCALP, INITIAL [facility] ENCOUNTER 2020-05-22 22:40 POISONING BY OT OPIOIDS, [facility] INTENTIONAL SELF-HARM, INIT ENCNTR 2020-05-22 22:40 POISN BY [facility] ANTIEPLPTC AND [facility] SED-HYPNTC DRUGS, SLF-HRM, INIT 2020-05-22 22:40 POISONING BY BETA-ADRENOCPT [facility] ANTAGONISTS, SELF-HARM, INIT 2020-05-22 22:[address] OF [facility] OCCURRENCE OF THE EXTERNAL CAUSE 2020-05-22 22:40 CONTACT W AND EXPOSURE TO [facility] VIRAL COMMUNICABLE DISEASES 2020-05-22 22:40 DO NOT RESUSCITATE [facility] 2020-05-22 22:40 ALCOHOL DEPENDENCE, [facility] UNCOMPLICATED 2020-05-22 22:40 MAJOR DEPRESSIVE DISORDER, [facility] SINGLE EPISODE, UNSPECI 2020-05-22 22:40 POISONING BY OT OPIOIDS, [facility] INTENTIONAL SELF-HARM, I 2020-05-22 22:40 POISN BY [facility] ANTIEPLPTC AND [facility] SED-HYPNTC DRUGS, SLF- 2020-05-22 22:40 POISONING BY BETA-ADRENOCPT [facility] ANTAGONISTS, SELF-HARM 2020-05-22 22:40 OTHER FALL ON SAME LEVEL, [facility] INITIAL ENCOUNTER 2020-05-22 22:[address] OF [facility] OCCURRENCE OF THE EXTE 2020-05-22 22:40 CONTACT W AND EXPOSURE TO [facility] VIRAL COMMUNICABLE D 2020-06-01 19:48 PERSONS ENCOUNTERING HEALTH [facility] SERVICES IN OTH CIRCUMSTANCES 2020-06-01 20:06 ALCOHOL ABUSE WITH [facility] INTOXICATION, UNSPECIFIED 2020-06-01 20:06 DO NOT RESUSCITATE [facility] [place] 2020-06-01 20:06 ESSENTIAL (PRIMARY) [facility] HYPERTENSION 2020-06-07 11:15 HISTORY OF FALLING [facility] 2020-06-12 18:00 CHEST PAIN, UNSPECIFIED [facility] 2020-06-12 18:00 DO NOT RESUSCITATE [facility] 2020-06-13 21:56 ALCOHOL DEPENDENCE WITH [facility] INTOXICATION, UNCOMPLICATE 2020-06-13 21:56 ALCOHOL DEPENDENCE WITH [facility] WITHDRAWAL, UNSPECIFIED 2020-06-13 21:56 ALCOHOLIC GASTRITIS WITHOUT [facility] BLEED[facility] 2020-06-13 21:56 DO NOT RESUSCITATE [facility] Allergies date description facility Poison Dionna [facility] No known [facility] Dust [facility] Grass [facility] CAT HAIR EXTRACT [facility] CITALOPRAM [facility] CODEINE [facility] DOXYCYCLINE [facility] FENTANYL [facility] HYDROCODONE [facility] KETAMINE [facility] MORPHINE [facility] OXYCODONE [facility] PREDNISONE [facility] PREGABALIN [facility] OLANZAPINE [facility] NO KNOWN ENVIRONMENTAL ALLERGIES [facility] STATINS [facility] TETRACYCLINES \T\ RELATED [facility] OTHER [facility] Bee Stings [facility] STRAWBERRY [facility] TOMATO (SOLANUM LYCOPERSICUM) [facility] ADHESIVE TAPE [facility] ARIPIPRAZOLE [facility] HYDROCODONE-ACETAMINOPHEN [facility] MORPHINE [facility] OXYCODONE [facility] PAROXETINE HCL [facility] PENICILLINS [facility] NO KNOWN ALLERGIES [facility] NO ALLERGY INFORMATION AVAILABLE [facility] IODINE AND IODIDE CONTAINING PRODUCTS [facility] PENICILLINS [facility] TETRACYCLINES [facility] SULFA (SULFONAMIDE ANTIBIOTICS) [facility] INFLUENZA VIRUS VACCINES [facility] NO KNOWN ALLERGIES [facility] LATEX [facility] PREGABALIN [facility] PITAVASTATIN [facility] LURASIDONE [facility] LINAGLIPTIN [facility] CODEINE [facility] HYDROCODONE [facility] ASPIRIN [facility] VALPROIC ACID [facility] TREE POLLEN-JUNIPER, [facility] PSEUDOEPHEDRINE HCL [facility] ALOE VERA [facility] JUNIPER TAR [facility] IBUPROFEN [facility] ASPARTAME [facility] AMPICILLIN [facility] CEPHALEXIN [facility] ERYTHROMYCIN BASE [facility] IMIPENEM [facility] CIPROFLOXACIN [facility] CLARITHROMYCIN [facility] SIMVASTATIN [facility] AZITHROMYCIN [facility] ATORVASTATIN [facility] LISINOPRIL [facility] RIZATRIPTAN [facility] EZETIMIBE [facility] AMOXICILLIN-POT CLAVULANATE [facility] IMIPENEM-CILASTATIN [facility] SULFAMETHOXAZOLE-TRIMETHOPRIM [facility]ED [place] DIVALPROEX [facility] ADHESIVE TAPE-SILICONES [facility] NITROFURANTOIN MONOHYD/M-CRYST [facility] NIXON inhibitors [facility] shellfish [facility] Cipro [facility] Botox [facility] Influenza Virus Vaccine [facility] hydroCHLOROthiazide [facility] lisinopril [facility] BEE VENOM [facility] MEPERIDINE [facility] OXYCODONE [facility] TALC [facility] NO KNOWN ALLERGIES [facility] NO KNOWN ENVIRONMENTAL ALLERGIES [facility] PENICILLINS [facility] OTHER [facility] NO KNOWN ALLERGIES [facility] PENICILLINS [facility] SULFA (SULFONAMIDE ANTIBIOTICS) [facility] NO KNOWN ALLERGIES [facility] OXYCODONE [facility] ASPIRIN [facility] PREDNISONE [facility] TENZIN [facility] GARLIC [facility] CLARITHROMYCIN [facility] METHADONE [facility] PENICILLIN G [facility] TIZANIDINE [facility] BUCKWHEAT [facility] LATEX [facility] HYDROCODONE-ASPIRIN [facility] BUPRENORPHINE-NALOXONE [facility] edical Center lisinopril [facility] SULFA (SULFONAMIDE ANTIBIOTICS) [facility] SUMATRIPTAN [facility] [id number] ANTIMIGRAINE AGENTS [facility] SULFA (SULFONAMIDE ANTIBIOTICS) [facility] NO KNOWN ALLERGIES [facility] FLUTICASONE PROPIONATE [facility] lisinopril [facility] Medications date description facility 2020-03-28 00:00:00 null [facility] [place] [facility] 2020-03-28 00:00:00 null [facility] [place] [facility] 2020-03-28 00:00:00 PANCRELIPASE ([id number]) [facility] [place] [facility] 2020-03-28 00:00:00 PANCRELIPASE ([id number]) [facility] [place] [facility] 2020-03-28 00:00:00 null [facility] [place] [facility] 2020-03-28 00:00:00 null [facility] [place] [facility] 2020-03-28 00:00:00 PANCRELIPASE ([id number]) [facility] [place] [facility] 2020-03-28 00:00:00 PANCRELIPASE ([id number]) [facility] [place] [facility] Results Social History date description facility 2020-03-28 00:00:00 [facility] [facility] date description facility 2020-05-11 00:00:00 Former smoker [facility] Social History date description facility 2020-03-28 00:00:00 Former smoker [facility] date description facility 2020-05-11 00:00:00 Former smoker [facility] date description facility [phone]
== END 2020-06-13 21:40 | disposition critical access hospital (66) ==
LOC: EMS 21:39
PROVIDERS: ATTEND Surgery
DX: F10.129 Alcohol abuse with intoxication, unspecified (principal)
CPT/HCPCS: A0425; A0429

== ENCOUNTER 2020-06-13 21:56 | Emergency (ER) | payer MEDICARE, MEDICAID ==
--- NOTE | 2020-06-13 22:12 | ED Physician Documentation ---
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 No: Headache, Dyspnea, NVD Contributing factors: Intoxicated Basline status: 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, Ambulatory Similar symptoms before: Diagnosis (alcoholism with significant inebriation often in the past.) Recently seen: Emergency Dept (multiple episodes of alcohol intoxication. Episodic upper abd pains.) Review of Systems Constitutional: denies: Fever Nose: denies: Rhinorrhea / runny nose, Congestion Throat: denies: Sore throat Respiratory: denies: Cough GI: reports: Abdominal Pain. denies: Abdominal Swelling, Nausea, Vomiting, Diarrhea, Bloody / black stool Neurologic: reports: Generalized weakness, Altered mental status (was unresponsively intoxicated at home; more awake upon ED arrival.). denies: Focal weakness, Numbness, Near syncope PD PAST MEDICAL HISTORY - Past Medical History Cardiovascular: Hypertension, High cholesterol Respiratory: Sleep apnea, CPAP use Neuro: Headaches, Other Endocrine/Autoimmune: None, Other GI: GERD, Pancreatitis, Cirrhosis : Incontinence HEENT: None Psych: Depression, Anxiety, Panic attacks, Claustrophobia Musculoskeletal: Osteoarthritis Derm: None - Past Surgical History Past Surgical History: Yes Ortho: Hip replacement, Arthroscopic surgery HEENT: Tracheostomy - Present Medications Home Medications: Ambulatory Orders Medication Instructions Recorded Confirmed Thiamine HCl [Vitamin B-1] 100 mg PO DAILY #30 tablet 08/17/18 06/13/20 Furosemide [Lasix] 40 mg PO DAILY 08/19/19 06/13/20 Cholecalciferol [Vitamin D3] 1,000 units PO DAILY 01/17/20 06/13/20 Gabapentin [Neurontin] 600 mg PO TID 01/17/20 06/13/20 Lactulose 30 gm PO TID 01/17/20 06/13/20 Multivitamin W/Minerals [Theragran 1 each PO DAILY 01/17/20 06/13/20 M] Propranolol [Inderal] 30 mg PO BID 01/17/20 06/13/20 Sucralfate [Carafate] 1 gm PO BIDAC 01/17/20 06/13/20 Tamsulosin [Flomax] 0.4 mg PO DAILY 01/17/20 06/13/20 buPROPion [Wellbutrin Sr] 150 mg PO DAILY #30 tablet 02/21/20 06/13/20 Famotidine [Pepcid] 40 mg PO DAILY 06/14/20 06/14/20 LORazepam [Ativan] 1 mg PO QID 06/14/20 06/14/20 Lipase/Protease/Amylase [Nathalie [place] 1 cap PO TIDWM 06/14/20 06/14/20 6,000 Units Capsule] Ondansetron Odt [Zofran] 4 mg TL Q6H PRN #10 tablet 06/14/20 Pantoprazole Sodium 40 mg PO DAILY 06/14/20 06/14/20 Sucralfate [Carafate] 1 gm PO ACHS #30 tablet 06/14/20 chlordiazePOXIDE [Librium] 25 mg PO Q6H PRN #25 capsule 06/14/20 oxyCODONE [Roxicodone] 2.5 mg PO QID PRN 06/14/20 06/14/20 - Allergies Allergies/Adverse Reactions: Allergies Allergy/AdvReac Type Severity Reaction Status Date / Time lisinopril Allergy Mild Anaphylaxis Verified 06/13/20 22:12 - Living Situation Living Situation: reports: With family (his mother) Living Arrangement: reports: At home - Social History Does the pt smoke?: No Smoking Status: Never smoker Does the pt drink ETOH?: Yes Does the pt have substance abuse?: No - Immunizations Immunizations are current?: Yes Immunizations: Other immun not current - POLST Patient has POLST: No POLST Status: DNR (pt clearly state to me it is DNR, Pt's mother at the bedside did not say no.) PD ED PE NORMAL - Vitals Vital signs reviewed: Yes - General General: 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, Well developed/nourished, Other (slurring of speech and some incoordinate movements. Able to answer questions. ) - HEENT HEENT: Atraumatic, Pharynx benign - Neck Neck: Supple, no meningeal sign, No adenopathy - Cardiac Cardiac: RRR, No murmur - Respiratory Respiratory: Clear bilaterally - Abdomen Abdomen: Soft, Non distended, No organomegaly, Other (tender with mild guarding in epigastric area. No percussion nor rebound tenderness. ) - Back Back: No CVA TTP - Derm Derm: Normal color, Warm and dry - Extremities Extremities: Normal ROM s pain, No edema, No calf tenderness / cord - Neuro Neuro: 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, No motor deficit, Normal speech Results - Vitals Vitals: Vital Signs - 24 hr 06/13/20 06/13/20 06/14/20 22:05 23:40 00:00 Temperature 36.0 C L 36.4 C L Heart Rate 88 85 88 Respiratory 20 15 19 Rate Blood Pressure 119/94 H 102/79 102/79 O2 Saturation 99 95 97 06/14/20 06/14/20 06/14/20 00:52 02:15 04:28 Temperature 36.8 C 36.8 C Heart Rate 80 84 93 Respiratory 13 14 12 Rate Blood Pressure 119/84 H 139/96 H 110/82 H O2 Saturation 98 96 96 06/14/20 06/14/20 05:34 06:36 Temperature 36.5 C 36.5 C Heart Rate 96 97 Respiratory 12 16 Rate Blood Pressure 120/89 H 126/88 H O2 Saturation 96 96 Oxygen O2 Source Room air - Labs Labs: Laboratory Tests 06/13/20 06/13/20 06/13/20 22:17 22:17 22:17 WBC 4.5 L RBC 4.19 L Hgb 14.3 Hct 39.5 L MCV 94.3 H MCH 34.1 H MCHC 36.2 H RDW 12.7 Plt Count 206 MPV 8.9 Neut # (Auto) 1.0 L Lymph # (Auto) 2.5 [place] # (Auto) 0.6 Eos # (Auto) 0.3 Baso # (Auto) 0.0 Absolute Nucleated RBC 0.00 Nucleated RBC % 0.0 Sodium 132 L Potassium 3.0 L Chloride 88 L Carbon Dioxide 25 Anion Gap 19.0 H BUN 12 Creatinine 0.9 Estimated GFR (MDRD) 87 L Glucose 107 H Calcium 9.4 Magnesium 2.0 Total Bilirubin 0.5 AST 34 ALT 19 Alkaline Phosphatase 100 Total Protein 7.9 Albumin 4.5 Globulin 3.4 Albumin/Globulin Ratio 1.3 Lipase 18 L Urine Color Urine Clarity Urine pH Ur Specific [place] Urine Protein Urine Glucose (UA) Urine Ketones Urine Occult Blood Urine Nitrite Urine Bilirubin Urine Urobilinogen Ur Leukocyte Esterase Ur Microscopic Review Urine Culture Comments Nasal Adenovirus (PCR) Nasal B. parapertussis DNA (PCR) Nasal Coronavir 229E PCR Nasal Coronavir HKU1 PCR Nasal Coronavir NL63 PCR Nasal Coronavir OC43 PCR Nasal Enterovir/Rhinovir PCR Nasal Influenza B PCR Nasal Influenza A PCR Nasal Parainfluen 1 PCR Nasal Parainfluen 2 PCR Nasal Parainfluen 3 PCR Nasal Parainfluen 4 PCR Nasal RSV (PCR) Nasal B.pertussis DNA PCR Nasal C.pneumoniae (PCR) [place] Human Metapneumo PCR Nasal M.pneumoniae (PCR) Nasal SARS-CoV-2 (PCR) Urine Opiates Screen Ur Oxycodone Screen Urine Methadone Screen Ur Propoxyphene Screen Ur Barbiturates Screen Ur Tricyclics Screen Ur Phencyclidine Scrn Ur Amphetamine Screen U Methamphetamines Scrn U Benzodiazepines Scrn Urine Cocaine Screen U Cannabinoids Screen Ethyl Alcohol 326.8 06/14/20 06/14/20 06/14/20 00:46 03:34 03:34 WBC RBC Hgb Hct MCV MCH MCHC RDW Plt Count MPV Neut # (Auto) Lymph # (Auto) [place] # (Auto) Eos # (Auto) Baso # (Auto) Absolute Nucleated RBC Nucleated RBC % Sodium Potassium Chloride Carbon Dioxide Anion Gap BUN Creatinine Estimated GFR (MDRD) Glucose Calcium Magnesium Total Bilirubin AST ALT Alkaline Phosphatase Total Protein Albumin Globulin Albumin/Globulin Ratio Lipase Urine Color YELLOW Urine Clarity CLEAR Urine pH 6.0 Ur Specific [place] 1.010 Urine Protein NEGATIVE Urine Glucose (UA) NEGATIVE Urine Ketones TRACE Urine Occult Blood NEGATIVE Urine Nitrite NEGATIVE Urine Bilirubin NEGATIVE Urine Urobilinogen 0.2 (NORMAL) Ur Leukocyte Esterase NEGATIVE Ur Microscopic Review NOT INDICATED Urine Culture Comments NOT INDICATED Nasal Adenovirus (PCR) NOT DETECTED Nasal B. parapertussis DNA (PCR) NOT DETECTED Nasal Coronavir 229E PCR NOT DETECTED Nasal Coronavir HKU1 PCR NOT DETECTED Nasal Coronavir NL63 PCR NOT DETECTED Nasal Coronavir OC43 PCR NOT DETECTED Nasal Enterovir/Rhinovir PCR NOT DETECTED Nasal Influenza B PCR NOT DETECTED Nasal Influenza A PCR NOT DETECTED Nasal Parainfluen 1 PCR NOT DETECTED Nasal Parainfluen 2 PCR NOT DETECTED Nasal Parainfluen 3 PCR NOT DETECTED Nasal Parainfluen 4 PCR NOT DETECTED Nasal RSV (PCR) NOT DETECTED Nasal B.pertussis DNA PCR NOT DETECTED Nasal C.pneumoniae (PCR) NOT DETECTED [place] Human Metapneumo PCR NOT DETECTED Nasal M.pneumoniae (PCR) NOT DETECTED Nasal SARS-CoV-2 (PCR) NOT DETECTED Urine Opiates Screen POSITIVE H Ur Oxycodone Screen NEGATIVE Urine Methadone Screen NEGATIVE Ur Propoxyphene Screen NEGATIVE Ur Barbiturates Screen NEGATIVE Ur Tricyclics Screen NEGATIVE Ur Phencyclidine Scrn NEGATIVE Ur Amphetamine Screen NEGATIVE U Methamphetamines Scrn NEGATIVE U Benzodiazepines Scrn POSITIVE H Urine Cocaine Screen NEGATIVE U Cannabinoids Screen NEGATIVE Ethyl Alcohol 181.3 PD MEDICAL DECISION MAKING - ED course Complexity details: re-evaluated patient (getting some withdrawal symptoms, will give Ativan. Waiting for confirmation/acceptance from [facility]. ), considered differential (intoxicated with upper abd pain. History of pancreatit is and gastritis. Can check labs. Does not clinically have acute abd exam. ), d/w patient ED course: The patient is clinically stable and medically cleared to be able to go to Detox facility. Night staff nursing talked with [facility] and the patient was interviewed by the intake person. They do have a bed available and are presenting into their staff physician. He likely will be accepted there and will just need to get transportation. His stomach pain is doing better. He was having some mild withdrawal start. He will be given Ativan and Librium as needed. Departure - Departure Clinical Impression: Upper abdominal pain, Chronic alcoholism Gastritis Qualifiers: Gastritis type: alcoholic Chronicity: acute Gastritis bleeding: without bleeding Qualified Code(s): K29.20 - Alcoholic gastritis without bleeding Alcohol intoxication Qualifiers: Complication of substance-induced condition: uncomplicated Qualified Code(s): F10.920 - Alcohol use, unspecified with intoxication, uncomplicated Condition: Stable Record reviewed to determine appropriate education?: Yes Instructions: ED Gastritis Follow-Up: Renetta Coppola PA [Primary Care Provider] - Prescriptions: Sucralfate [Carafate] 1 gm PO ACHS #30 tablet chlordiazePOXIDE [Librium] 25 mg PO Q6H PRN #25 capsule PRN Reason: Alcohol Withdrawal Ondansetron Odt [Zofran] 4 mg TL Q6H PRN #10 tablet PRN Reason: Nausea / Vomiting Comments: Avoid excess alcohol and preferably alcohol entirely. Go to the [facility] from here. Use Librium as needed for withdrawal symptoms. Continue your omeprazole. Add sucralfate to help with the stomach pains. Ondansetron if needed for nausea. To that add Tylenol if needed for pains. Do not use NSAIDs.
[2020-06-13 22:22] LABS: BASOPHILS % (AUTO) 0.9 %; EOSINOPHILS # (AUTO) 0.3 10^3/uL (0.0-0.7); EOSINOPHILS % (AUTO) 5.8 %; HCT - HEMATOCRIT 39.5 % (42.0-52.0); HGB - HEMOGLOBIN 14.3 g/dL (14.0-18.0); LYMPHOCYTES # (AUTO) 2.5 10^3/uL (1.5-3.5); LYMPHOCYTES % (AUTO) 56.6 %; MEAN CORPUSCULAR HEMOGLOBIN 34.1 pg (27.0-31.0); MEAN CORPUSCULAR HGB CONC 36.2 g/dL (32.0-36.0); MEAN CORPUSCULAR VOLUME 94.3 fL (80.0-94.0); MEAN PLATELET VOLUME 8.9 fL (7.4-11.4); MONOCYTES # (AUTO) 0.6 10^3/uL (0.0-1.0); MONOCYTES % (AUTO) 13.9 %; NEUTROPHILS % (AUTO) 22.6 %; PLT - PLATELET COUNT 206 10^3/uL (130-450); RED BLOOD COUNT 4.19 10^6/uL (4.70-6.10); RED CELL DISTRIBUTION WIDTH 12.7 % (12.0-15.0); WHITE BLOOD COUNT 4.5 x10^3/uL (4.8-10.8)
[2020-06-13 22:35] LABS: ALBUMIN 4.5 g/dL (3.2-5.5); ALBUMIN/GLOBULIN RATIO 1.3 (1.0-2.2); BILIRUBIN,TOTAL 0.5 mg/dL (0.2-1.0); CALCIUM 9.4 mg/dL (8.5-10.3); CREATININE 0.9 mg/dL (0.6-1.2); TOTAL PROTEIN 7.9 g/dL (6.7-8.2)
[2020-06-13] MEDS ORDERED: MAG HYDROX/AL HYDROX/SIMETH 30 ML UDC PO STA (22:42)
[2020-06-13] MEDS ORDERED: SODIUM CHLORIDE 0.9% 1,000 ML IV STA (22:42)
[2020-06-13] MEDS ORDERED: MORPHINE 2 MG/ML CARPUJECT IVP STA (22:42)
[2020-06-13] MEDS ORDERED: ONDANSETRON 4 MG/2 ML VIAL IVP STA (22:42)
[2020-06-13] MEDS ORDERED: FAMOTIDINE 20 MG/2 ML VIAL IVP STA (22:42)
[2020-06-14] MEDS ORDERED: MORPHINE 2 MG/ML CARPUJECT IVP STA (00:38)
[2020-06-14] MEDS ORDERED: LACTATED RINGERS 1,000 ML IV STA (00:38)
[2020-06-14 00:55] LABS: MUDS CUTOFF CONCENTRATIONS CUTOFF CONC BELOW:
[2020-06-14 00:56] LABS: BILIRUBIN,URINE NEGATIVE (NEGATIVE); GLUCOSE, URINE (UA) NEGATIVE (NEGATIVE); KETONES,URINE (UA) TRACE mg/dL (NEGATIVE); LEUKOCYTE ESTERASE, URINE NEGATIVE (NEGATIVE); NITRITE,URINE NEGATIVE (NEGATIVE); OCCULT BLOOD,URINE NEGATIVE (NEGATIVE); PROTEIN,URINE NEGATIVE (NEGATIVE); UROBILINOGEN,URINE 0.2 (NORMAL) E.U./dL (NORMAL)
[2020-06-14 01:07] LABS: CLARITY,URINE CLEAR (CLEAR)
[2020-06-14 01:08] LABS: AMPHETAMINE SCREEN,URINE NEGATIVE (NEGATIVE); BARBITURATE SCREEN,UR NEGATIVE (NEGATIVE); BENZODIAZEPINES SCREEN, URINE POSITIVE (NEGATIVE); COCAINE SCREEN URINE NEGATIVE (NEGATIVE); METHADONE SCREEN, URINE NEGATIVE (NEGATIVE); METHAMPHETAMINES SCREEN, URINE NEGATIVE (NEGATIVE); OPIATE SCREEN, URINE POSITIVE (NEGATIVE); OXYCODONE SCREEN, URINE NEGATIVE (NEGATIVE); PROPOXYPHENE SCREEN, URINE NEGATIVE (NEGATIVE); THC CANNABINOID SCREEN, URINE NEGATIVE (NEGATIVE); TRICYCLIC ANTIDEPRESSANT,URINE NEGATIVE (NEGATIVE)
[2020-06-14 04:29] LABS: B. PARAPERTUSSIS- RESP PCR PAN NOT DETECTED; B. PERTUSSIS- RESP PCR PANEL NOT DETECTED; C. PNEUMONIAE- RESP PCR PANEL NOT DETECTED; CORONAVIRUS 229E-RESP PCR NOT DETECTED; CORONAVIRUS HKU1-RESP PCR NOT DETECTED; CORONAVIRUS NL63-RESP PCR NOT DETECTED; CORONAVIRUS OC43-RESP PCR NOT DETECTED; HUMAN METAPNEUMOVIRUS NOT DETECTED; INFLUENZA A- RESP PCR PANEL NOT DETECTED; INFLUENZA B - RESP PCR PANEL NOT DETECTED; M. PNEUMONIAE- RESP PCR PANEL NOT DETECTED; PARAINFLUENZA VIRUS 1 NOT DETECTED; PARAINFLUENZA VIRUS 2 NOT DETECTED; PARAINFLUENZA VIRUS 3 NOT DETECTED; PARAINFLUENZA VIRUS 4 NOT DETECTED; RHINOVIRUS/ENTEROVIRUS NOT DETECTED; RSV- RESP PCR PANEL NOT DETECTED; SARS-CoV-2 -RESP PCR PANEL NOT DETECTED
[2020-06-14] MEDS ORDERED: LORazepam 2 MG/ML VIAL IVP STA (06:30)
[2020-06-14] MEDS ORDERED: MAG HYDROX/AL HYDROX/SIMETH 30 ML UDC PO STA (08:07)
[2020-06-14] MEDS ORDERED: oxyCODONE 5 MG TABLET PO STA (08:07)
[2020-06-14 10:58] VITALS: BP 147/95
[2020-06-14] MEDS ORDERED: LORazepam 1 MG TABLET PO STA (13:06)
--- OUTSIDE RECORDS SUMMARY | 2020-06-20 00:55 | EXTERNAL MEDICAL SUMMARY RPT | Continuity of Care Document ---
: Demographics Phone Unavailable Preferred Language Upper Sorbian Marital Status Unknown Latter Day Affiliation Unknown Race Unknown Ethnic Group Unknown Author Organization [place] Address [address] [id number] Phone Care Team Providers Name Role Phone Renetta HINTON, Unavailable Unavailable Renetta Coppola Unavailable Unavailable Vincenzo PRIEST, Unavailable Unavailable VINCENZO BANKS Unavailable Unavailable Rah Beckett Unavailable Unavailable Problems date description facility 2019-08-19 17:36 IRON DEFICIENCY ANEMIA, [facility] UNSPECIFIED 2019-08-19 17:36 PURE HYPERCHOLESTEROLEMIA, [facility] UNSPECIFIED 2019-08-19 17:36 FLUID OVERLOAD, UNSPECIFIED [facility] 2019-08-19 17:36 MAJOR DEPRESSIVE DISORDER, [facility] SINGLE EPISODE, UNSPECIFIED 2019-08-19 17:36 OTHER SPECIFIED ANXIETY [facility] DISORDERS 2019-08-19 17:36 ALCOHOLIC HEPATITIS [facility] 2019-08-19 17:36 ALCOHOLIC HEPATIC FAILURE [facility] WITHOUT COMA 2019-08-19 17:36 PAIN IN RIGHT HIP [facility] Medic [facility] 2019-08-19 17:36 ACUTE KIDNEY FAILURE, [facility] UNSPECIFIED 2019-08-19 17:36 NOCTURIA [facility] 2019-08-19 17:36 HEADACHE [facility] 2019-08-19 17:36 UNSPECIFIED INJURY OF THORAX, 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 2019-08-19 17:36 HISTORY OF FALLING [facility] 2019-08-19 17:36 ALCOHOL DEPENDENCE WITH [facility] INTOXICATION, UNSPECIFIED 2019-08-19 17:36 CLAUSTROPHOBIA [facility] 2019-08-19 17:36 PANIC DISORDER [EPISODIC [facility] PAROXYSMAL ANXIETY] 2019-08-19 17:36 SLEEP APNEA, UNSPECIFIED [facility] 2019-08-19 17:36 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, UNSPECIFIED 2019-08-19 17:36 OTHER CHRONIC PAIN [facility] 2019-08-19 17:36 [facility] 2019-08-19 17:36 GASTRO-ESOPHAGEAL REFLUX [facility] DISEASE WITHOUT ESOPHAGITIS 2019-08-19 17:36 ALCOHOLIC HEPATITIS WITH [facility] ASCITES 2019-08-19 17:36 ALCOHOLIC CIRRHOSIS OF LIVER [facility] WITH ASCITES 2019-08-19 17:36 UNSPECIFIED OSTEOARTHRITIS, [facility] UNSPECIFIED SITE 2019-08-19 17:36 BENIGN PROSTATIC HYPERPLASIA [facility] WITH LOWER URINARY TRACT SYMP 2019-08-19 17:36 ATAXIA, [facility] 2019-08-19 17:36 FREQUENCY OF MICTURITION [facility] 2019-08-19 17:36 ABRASION OF UNSPECIFIED PART OF [facility] HEAD, INITIAL ENCOUNTER 2019-08-19 17:36 PERSONAL HISTORY OF DIS OF THE [facility] NERVOUS SYS AND SENSE ORGANS 2019-08-19 17:36 PRESENCE 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 UNSPECIFIED 2020-01-17 10:47 ALCOHOL ABUSE, UNCOMPLICATED [facility] 2020-01-17 10:47 ALCOHOL DEPENDENCE WITH [facility] INTOXICATION, UNSPECIFIED 2020-01-17 10:47 MAJOR DEPRESSIVE DISORDER, [facility] SINGLE EPISODE, UNSPECIFIED 2020-01-17 10:47 CLAUSTROPHOBIA [facility] 2020-01-17 10:47 PANIC DISORDER [EPISODIC [facility] PAROXYSMAL ANXIETY] 2020-01-17 10:47 SLEEP APNEA, UNSPECIFIED [facility] 2020-01-17 10:47 ESSENTIAL (PRIMARY) [facility] HYPERTENSION 2020-01-17 10:47 GASTRO-ESOPHAGEAL REFLUX [facility] DISEASE WITHOUT ESOPHAGITIS 2020-01-17 10:47 UNSPECIFIED CIRRHOSIS OF LIVER [facility] 2020-01-17 10:47 ACUTE [address]CREATITIS WITHOUT [facility] NECROSIS OR INFECTION, [facility] 2020-01-17 10:[address] [facility] 2020-01-17 10:47 PSEUDOCYST OF PANCREAS [facility] 2020-01-17 10:47 LOWER ABDOMINAL PAIN, [facility] dical [place] UNSPECIFIED 2020-01-17 10:47 UNSPECIFIED URINARY [facility] INCONTINENCE 2020-01-17 10:47 BLOOD ALCOHOL LEVEL OF 240 [facility] MG/100 ML OR MORE 2020-01-17 10:47 DO NOT RESUSCITATE [facility] 2020-01-17 10:47 AEROLOGIST (CURRENT) USE OF [facility] INHALED STEROIDS 2020-01-17 10:47 FDC (CURRENT) USE OF 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 2020-01-18 13:00 ACUTE PANCREATITIS WITH [facility] UNINFECTED NECROSIS, UNSPECIFIED 2020-02-14 16:00 UNSTEADINESS ON FEET [facility] 2020-02-14 16:00 WEAKNESS [facility] 2020-02-14 16:00 HISTORY OF FALLING [facility] 2020-02-17 15:28 UNSTEADINESS ON FEET [facility] 2020-02-17 15:28 SLOWNESS AND POOR [facility] RESPONSIVENESS 2020-02-17 15:47 DISORIENTATION, UNSPECIFIED [facility] 2020-02-17 15:47 POISONING BY [facility] DRUG/MEDS/BIOL SUBST, UNDETERMINED, INIT 2020-02-17 15:47 DO NOT RESUSCITATE [facility] 2020-02-21 21:53 ANXIETY DISORDER, UNSPECIFIED [facility] 2020-02-21 21:[address] [facility] 2020-02-21 21:53 OTHER PROBLEMS RELATED TO [facility] LIFESTYLE 2020-02-21 22:11 MAJOR DEPRESSIVE DISORDER, [facility] SINGLE EPISODE, UNSPECIFIED 2020-02-21 22:11 ANXIETY [facility] 2020-02-21 22:11 ALCOHOL ABUSE WITH [facility] INTOXICATION, UNSPECIFIED 2020-02-21 22:11 MAJOR DEPRESSIVE DISORDER, [facility] SINGLE EPISODE, UNSPECI 2020-02-21 22:11 DO NOT RESUSCITATE [facility] 2020-02-24 20:42 PERSONS ENCOUNTERING [facility] SERVICES IN OTH CIRCUMSTANCES 2020-02-24 20:59 ALCOHOL DEPENDENCE, [facility] UNCOMPLICATED 2020-02-24 20:59 DISORIENTATION, UNSPECIFIED [facility] 2020-02-24 20:59 DO NOT RESUSCITATE [facility] 2020-02-29 16:24 PERSONS ENCOUNTERING [facility] SERVICES IN OTH CIRCUMSTANCES 2020-03-08 14:18 UNSTEADINESS ON FEET [facility] 2020-03-08 14:18 WEAKNESS [facility] 2020-03-08 14:18 HISTORY OF FALLING [facility] 2020-03-23 12:02 CALCULUS OF GALLBLADDER W/O [facility] CHOLECYSTITIS W/O OBSTRUCTION 2020-03-23 12:[address] [facility] 2020-03-23 12:02 OTHER ASCITES [facility] 2020-03-23 13:[address] [facility] 2020-03-23 21:18 [facility] 2020-03-23 21:18 AUDITORY HALLUCINATIONS [facility] 2020-03-23 21:34 ALCOHOL ABUSE, UNCOMPLICATED [facility] 2020-03-23 21:34 CALCULUS OF GALLBLADDER W/O [facility] CHOLECYSTITIS W/O OBST 2020-03-23 21:34 BLOOD ALCOHOL LEVEL OF 200-239 [facility] MG/100 ML 2020-03-23 21:34 DO NOT RESUSCITATE [facility] 2020-03-23 21:34 DIPLOPIA [facility] 2020-03-23 21:34 CALCULUS OF GALLBLADDER W/O [facility] CHOLECYSTITIS W/O OBSTRUCTION 2020-03-23 21:[address] [facility] 2020-03-23 21:34 OTHER ASCITES [facility] 2020-03-28 00:00:00 [facility] 2020-03-28 00:00:00 Alcohol [facility] 2020-03-28 00:00:00 Health-related behavior [facility] [place] [facility] 2020-03-28 00:00:00 Exercise [facility] [place] [facility] 2020-03-28 00:00:00 [facility] [place] [facility] 2020-03-28 00:00:00 [facility] sm[facility] [place] [facility] 2020-03-28 00:00:00 Tobacco use and exposure [facility] [place] [facility] 2020-03-28 00:00:00 Details of drug misuse behavior [facility] [place] [facility] 2020-04-03 11:45 UNSTEADINESS ON FEET [facility] 2020-04-03 11:45 [facility] 2020-04-03 11:45 HISTORY OF FALLING [facility] 2020-04-11 14:15 HISTORY OF FALLING [facility] 2020-04-17 16:15 HISTORY OF FALLING [facility] 2020-04-24 16:41 ESSENTIAL (PRIMARY) [facility] HYPERTENSION 2020-04-24 16:41 RIGHT UPPER QUADRANT PAIN [facility] 2020-04-24 16:41 STRAIN OF MUSCLE, FASC[facility] AND [facility] TENDON AT NECK LEVEL, 2020-04-24 16:41 CONTUSION OF RIGHT FRONT WALL [facility] OF THORAX, INITIAL E 2020-04-24 16:41 OTHER FALL ON SAME LEVEL, [facility] INITIAL ENCOUNTER 2020-04-24 16:[address] [facility] Medical [place] [address] 2020-04-24 16:41 ALCOHOL ABUSE WITH [facility] INTOXICATION, UNSPECIFIED 2020-04-24 16:41 OTHER CHEST PAIN [facility] 2020-04-24 16:41 CONTUSION OF SCALP, INITIAL [facility] ENCOUNTER 2020-04-24 16:41 STRAIN OF MUSCLE, FASCIA [facility] TENDON AT NECK LEVEL, INIT 2020-04-24 16:41 CONTUSION OF RIGHT FRONT WALL [facility] OF THORAX, INITIAL ENCOUNTER 2020-04-24 16:41 CONTUSION OF RIGHT HIP, INITIAL [facility] ENCOUNTER 2020-04-24 16:41 DO NOT RESUSCITATE [facility] 2020-05-01 00:00:00 [facility]ening [facility] unspecified infectious disease [place] [facility] 2020-05-01 00:00:00 Encounter for screening for [facility] infectious and parasitic [facility] diseases, unspecified 2020-05-01 00:00:00 COVID19 Testing [facility] 2020-05-01 00:00:00 Procedure [facility] subject [place] [facility] 2020-05-11 00:00:00 Insomnia, unspecified [facility] 2020-05-11 00:00:00 Insomnia [facility] 2020-05-11 00:00:00 Health-related behavior [facility] Primary Care [facility] 2020-05-11 00:00:00 Tobacco use and exposure [facility] Primary Care [facility] 2020-05-11 00:00:00 Exercise [facility] 2020-05-11 00:00:00 Details of drug misuse behavior [facility] Primary Care [place] [facility] 2020-05-11 00:00:00 [facility] 2020-05-11 00:00:00 Former smoker [facility] 2020-05-11 22:30 RESPIRATORY ARREST [facility] 2020-05-11 22:48 DEHYDRATION [facility] 2020-05-11 22:48 ALCOHOL ABUSE WITH INTOXICATION [facility] DELIRIUM 2020-05-11 22:48 ESSENTIAL (PRIMARY) [facility] HYPERTENSION 2020-05-11 22:48 HYPOXEMIA [facility] 2020-05-11 22:48 POISONING BY UNSP NARCOTICS, [facility] ACCIDENTAL, INIT 2020-05-11 22:48 DO NOT RESUSCITATE [facility] 2020-05-11 22:48 TRANSIENT ALTERATION OF [facility] AWARENESS 2020-05-11 22:48 SYNCOPE AND COLLAPSE [facility] ical [place] 2020-05-15 00:00:00 Alcohol withdrawal delirium [facility] Care [facility] 2020-05-15 00:00:00 Alcohol use, unspecified with [facility] intoxication delirium [facility] 2020-05-15 00:00:00 Poisoning by unspecified [facility] narcotics, accidental [facility] (unintentional), initial encounter 2020-05-15 00:00:00 Alcohol intoxication delirium [facility] 2020-05-15 00:00:00 Accidental narcotic poisoning [facility] [place] [facility] 2020-05-22 22:40 MAJOR DEPRESSIVE DISORDER, [facility] SINGLE EPISODE, UNSPECIFIED 2020-05-22 22:40 ESSENTIAL (PRIMARY) [facility] HYPERTENSION 2020-05-22 22:40 HYPOTENSION, UNSPECIFIED [facility] 2020-05-22 22:40 ABRASION OF SCALP, INITIAL [facility] ENCOUNTER 2020-05-22 22:40 POISONING BY OT OPIOIDS, [facility] INTENTIONAL SELF-HARM, INIT ENCNTR 2020-05-22 22:40 POISN BY [facility] ANTIEPLPTC AND [facility] SED-HYPNTC DRUGS, SLF-HRM, INIT 2020-05-22 22:40 POISONING BY BETA-ADRENOCPT [facility] ANTAGONISTS, SELF-HARM, INIT 2020-05-22 22:[address] OF [facility] OCCURRENCE OF THE EXTERNAL CAUSE 2020-05-22 22:40 CONTACT W AND EXPOSURE TO [facility] VIRAL COMMUNICABLE DISEASES 2020-05-22 22:40 DO NOT RESUSCITATE [facility] 2020-05-22 22:40 ALCOHOL DEPENDENCE, [facility] UNCOMPLICATED 2020-05-22 22:40 MAJOR DEPRESSIVE DISORDER, [facility] SINGLE EPISODE, UNSPECI 2020-05-22 22:40 POISONING BY OT OPIOIDS, [facility] INTENTIONAL SELF-HARM, I 2020-05-22 22:40 POISN BY [facility] ANTIEPLPTC AND [facility] SED-HYPNTC DRUGS, SLF- 2020-05-22 22:40 POISONING BY BETA-ADRENOCPT [facility] ANTAGONISTS, SELF-HARM 2020-05-22 22:40 OTHER FALL ON SAME LEVEL, [facility] INITIAL ENCOUNTER 2020-05-22 22:[address] OF [facility] OCCURRENCE OF THE EXTE 2020-05-22 22:40 CONTACT W AND EXPOSURE TO [facility] VIRAL COMMUNICABLE D 2020-06-01 19:48 PERSONS ENCOUNTERING HEALTH [facility] SERVICES IN OTH CIRCUMSTANCES 2020-06-01 20:06 ALCOHOL ABUSE WITH [facility] INTOXICATION, UNSPECIFIED 2020-06-01 20:06 DO NOT RESUSCITATE [facility] al [place] 2020-06-01 20:06 ESSENTIAL (PRIMARY) [facility] HYPERTENSION 2020-06-07 11:15 HISTORY OF FALLING [facility] 2020-06-12 18:00 CHEST PAIN, UNSPECIFIED [facility] 2020-06-12 18:00 DO NOT RESUSCITATE [facility] 2020-06-13 21:56 ALCOHOL DEPENDENCE WITH [facility] INTOXICATION, UNCOMPLICATE 2020-06-13 21:56 ALCOHOL DEPENDENCE WITH [facility] WITHDRAWAL, UNSPECIFIED 2020-06-13 21:56 ALCOHOLIC GASTRITIS WITHOUT [facility] BLEEDING 2020-06-13 21:56 DO NOT RESUSCITATE [facility] Allergies date description facility Poison Dionna [facility] No known allergies [facility] Dust [facility] Grass [facility] CAT HAIR EXTRACT [facility] CITALOPRAM [facility] CODEINE [facility] DOXYCYCLINE [facility] FENTANYL [facility] HYDROCODONE [facility] KETAMINE [facility] MORPHINE [facility] OXYCODONE [facility] PREDNISONE [facility] PREGABALIN [facility] OLANZAPINE [facility] NO KNOWN ENVIRONMENTAL ALLERGIES [facility] STATINS [facility] TETRACYCLINES \T\ RELATED [facility] OTHER [facility] Bee Stings [facility] STRAWBERRY [facility] TOMATO (SOLANUM LYCOPERSICUM) [facility] ADHESIVE TAPE [facility] ARIPIPRAZOLE [facility] HYDROCODONE-ACETAMINOPHEN [facility] MORPHINE [facility] OXYCODONE [facility] PAROXETINE HCL [facility] PENICILLINS [facility] NO KNOWN ALLERGIES [facility] NO ALLERGY INFORMATION AVAILABLE [facility] IODINE AND IODIDE CONTAINING PRODUCTS [facility] PENICILLINS [facility] TETRACYCLINES [facility] SULFA (SULFONAMIDE ANTIBIOTICS) [facility] INFLUENZA VIRUS VACCINES [facility] NO KNOWN ALLERGIES [facility] LATEX [facility] PREGABALIN [facility] PITAVASTATIN [facility] LURASIDONE [facility] LINAGLIPTIN [facility] CODEINE [facility] HYDROCODONE [facility] ASPIRIN [facility] VALPROIC ACID [facility] TREE POLLEN-JUNIPER, [facility] PSEUDOEPHEDRINE HCL [facility] Center ALOE VERA [facility] JUNIPER TAR [facility] IBUPROFEN [facility] ASPARTAME [facility] AMPICILLIN [facility] CEPHALEXIN [facility] ERYTHROMYCIN BASE [facility] IMIPENEM [facility] CIPROFLOXACIN [facility] CLARITHROMYCIN [facility] SIMVASTATIN [facility] AZITHROMYCIN [facility] ATORVASTATIN [facility] LISINOPRIL [facility] RIZATRIPTAN [facility] EZETIMIBE [facility] AMOXICILLIN-POT CLAVULANATE [facility] IMIPENEM-CILASTATIN [facility] Medi [facility]aine Center SULFAMETHOXAZOLE-TRIMETHOPRIM [facility] SUDAFED [place] [facility] DIVALPROEX [facility] ADHESIVE TAPE-SILICONES [facility] NITROFURANTOIN MONOHYD/M-CRYST [facility] NIXON inhibitors [facility] shellfish [facility] Cipro [facility] Botox [facility] Influenza Virus Vaccine [facility] hydroCHLOROthiazide [facility]aine Center lisinopril [facility] BEE VENOM [facility] MEPERIDINE [facility] OXYCODONE [facility] TALC [facility] NO KNOWN ALLERGIES [facility] NO KNOWN ENVIRONMENTAL ALLERGIES [facility] PENICILLINS [facility] OTHER [facility] NO KNOWN ALLERGIES [facility] PENICILLINS [facility] SULFA (SULFONAMIDE ANTIBIOTICS) [facility] NO KNOWN ALLERGIES [facility] OXYCODONE [facility] ASPIRIN [facility] PREDNISONE [facility] TENZIN [facility] GARLIC [facility] CLARITHROMYCIN [facility] METHADONE [facility] PENICILLIN G [facility] TIZANIDINE [facility] BUCKWHEAT [facility] LATEX [facility] HYDROCODONE-ASPIRIN [facility] BUPRENORPHINE-NALOXONE [facility] edical Center lisinopril [facility] SULFA (SULFONAMIDE ANTIBIOTICS) [facility] SUMATRIPTAN [facility] [id number] ANTIMIGRAINE AGENTS [facility] SULFA (SULFONAMIDE ANTIBIOTICS) [facility] NO KNOWN ALLERGIES [facility] FLUTICASONE PROPIONATE [facility] lisinopril [facility] Medications date description facility 2020-03-28 00:00:00 null [facility] [place] [facility] 2020-03-28 00:00:00 null [facility] [place] [facility] 2020-03-28 00:00:00 PANCRELIPASE ([id number]) [facility] [place] [facility] 2020-03-28 00:00:00 PANCRELIPASE ([id number]) [facility] [place] [facility] 2020-03-28 00:00:00 null [facility] [place] [facility] 2020-03-28 00:00:00 null [facility] [place] [facility] 2020-03-28 00:00:00 PANCRELIPASE ([id number]) [facility] [place] [facility] 2020-03-28 00:00:00 PANCRELIPASE ([id number]) [facility] [place] [facility] Results Social History date description facility 2020-03-28 00:00:00 [facility] [place] [facility] date description facility 2020-05-11 00:00:00 Former smoker [facility] [place] [facility] Social History date description facility 2020-03-28 00:00:00 Former smoker [facility] date description facility 2020-05-11 00:00:00 Former smoker [facility] date description facility [id number]
== END 2020-06-14 13:27 | disposition home or self-care (01) ==
LOC: EDUNIT# → EDBD → ED 21:56 → SUPCPDRO 21:56 → ED 06-14 13:27
DX: K29.20 Alcoholic gastritis without bleeding (principal); F10.220 Alcohol dependence with intoxication, uncomplicated; F10.239 Alcohol dependence with withdrawal, unspecified; Z66 Do not resuscitate
CPT/HCPCS: 36415; 80053; 80306; 81003; 83690; 83735; 85025; 87631; 96361; 96374; 96375; 96376; 99284; 99285; A9270; J2060; J7120; J8499; 0202U; 80320; 81001; 87086

== ENCOUNTER 2020-08-30 13:28 | Outpatient (CLI) | payer MEDICARE, MEDICAID ==
[2020-08-30 17:34] LABS: BASOPHILS % (AUTO) 1.1 %; EOSINOPHILS # (AUTO) 0.2 10^3/uL (0.0-0.7); EOSINOPHILS % (AUTO) 5.1 %; HCT - HEMATOCRIT 41.1 % (42.0-52.0); HGB - HEMOGLOBIN 14.4 g/dL (14.0-18.0); LYMPHOCYTES # (AUTO) 1.1 10^3/uL (1.5-3.5); LYMPHOCYTES % (AUTO) 29.1 %; MEAN CORPUSCULAR HEMOGLOBIN 34.9 pg (27.0-31.0); MEAN CORPUSCULAR VOLUME 99.5 fL (80.0-94.0); MEAN PLATELET VOLUME 10.2 fL (7.4-11.4); MONOCYTES # (AUTO) 0.5 10^3/uL (0.0-1.0); NEUTROPHILS # (AUTO) 1.9 10^3/uL (1.5-6.6); NEUTROPHILS % (AUTO) 50.2 %; PLT - PLATELET COUNT 219 10^3/uL (130-450); RED BLOOD COUNT 4.13 10^6/uL (4.70-6.10); RED CELL DISTRIBUTION WIDTH 13.7 % (12.0-15.0); WHITE BLOOD COUNT 3.7 x10^3/uL (4.8-10.8)
[2020-08-30 17:41] LABS: PT - PROTHROMBIN TIME 10.9 secs (9.9-12.6)
[2020-08-30 18:13] LABS: THYROID STIMULATING HORMONE 1.68 uIU/mL (0.34-5.60)
[2020-08-30 18:39] LABS: ALBUMIN 5.2 g/dL (3.2-5.5); ALBUMIN/GLOBULIN RATIO 1.5 (1.0-2.2); ALKALINE PHOSPHATASE 76 IU/L (42-121); ALT ALANINE AMINOTRANSFERASE 23 IU/L (10-60); AST ASPARTATE AMINOTRANSFERASE 28 IU/L (10-42); BILIRUBIN,TOTAL 0.5 mg/dL (0.2-1.0); BUN - BLOOD UREA NITROGEN 15 mg/dL (6-20); CALCIUM 10.5 mg/dL (8.5-10.3); CARBON DIOXIDE - CO2 29 mmol/L (21-32); CHLORIDE 91 mmol/L (101-111); CHOL/HDL RATIO 2.1 (<5.0); CHOLESTEROL 245 mg/dL; CREATININE 1.1 mg/dL (0.6-1.2); GFR - MDRD 69 (>89); GLUCOSE 130 mg/dL (70-100); HDL CHOLESTEROL 118 mg/dL; POTASSIUM 3.5 mmol/L (3.5-5.0); SODIUM 135 mmol/L (135-145); TOTAL PROTEIN 8.7 g/dL (6.7-8.2); TRIGLYCERIDES 39 mg/dL
== END 2020-08-30 13:29 | disposition home or self-care (01) ==
LOC: LAB.N 13:28
PROVIDERS: ATTEND Family Medicine
DX: I10 Essential (primary) hypertension (principal); E03.9 Hypothyroidism, unspecified; E83.42 Hypomagnesemia; F10.20 Alcohol dependence, uncomplicated; G60.9 Hereditary and idiopathic neuropathy, unspecified; Z12.5 Encounter for screening for malignant neoplasm of prostate
CPT/HCPCS: 36415; 80053; 80061; 82607; 83721; 83735; 84153; 84443; 85025; 85610

== ENCOUNTER 2020-08-30 13:43 | Outpatient (CLI) | payer MEDICARE, MEDICAID ==
--- NOTE | 2020-08-30 17:05 | XRAY Report ---
PROCEDURE: Lumbar Spine Complete INDICATIONS: LOW BACK PAIN TECHNIQUE: 5 views of the lumbar spine were acquired. COMPARISON: CT abdomen and pelvis dated 03/23/2020 and hip radiographs dated 04/24/2020 FINDINGS: Bones: 5 [id number] vertebrae are present. There is stable bony alignment with persistent mild dextrocurvature of the mid lumbar spine. No acute compression fractures of the vertebral bodies. Obl ique views demonstrate no pars defects. None were seen on comparison CT. Moderate multilevel lumbar s pondylitic changes are seen, most prominent at L1-2 and L3-4. No spondylolisthesis. No suspicious [place] lesions. Soft tissues: Overlying bowel gas pattern is normal. No suspicious soft tissue calcifications. Sta ble postsurgical changes from prior right total hip arthroplasty. IMPRESSION: 1. Lumbar spine without acute radiographic abnormalities. 2. Moderate multilevel lumbar spondylosis most pronounced at L1-2 and L3-4. This is stable compared t o prior imaging. 3. No evidence for pars intraarticularis defects or spondylolisthesis. Persistent mild dextrocurvatur e of the mid lumbar spine. 4. Status post right total hip arthroplasty without acute hardware complication. Reviewed by: Tremaine Arambula MD on 08/30/2020 5:04 PM PDT Approved by: Tremaine Arambula MD on 08/30/2020 5:04 PM PDT Station ID: [id number]
== END 2020-08-30 13:44 | disposition home or self-care (01) ==
LOC: DI.N 13:43
PROVIDERS: ATTEND Family Medicine
DX: M47.816 Spondylosis without myelopathy or radiculopathy, lumbar region (principal); Z96.641 Presence of right artificial hip joint; I10 Essential (primary) hypertension; E03.9 Hypothyroidism, unspecified; E83.42 Hypomagnesemia; F10.20 Alcohol dependence, uncomplicated; G60.9 Hereditary and idiopathic neuropathy, unspecified; Z12.5 Encounter for screening for malignant neoplasm of prostate
CPT/HCPCS: 36415; 72110; 80053; 80061; 82607; 83735; 84443; 85025; 85610; G0103; 83721; 84153

== ENCOUNTER 2020-10-08 14:28 | Emergency (ER) | payer MEDICARE, MEDICAID ==
[2020-10-08 15:04] LABS: BILIRUBIN,URINE NEGATIVE (NEGATIVE); GLUCOSE, URINE (UA) NEGATIVE (NEGATIVE); KETONES,URINE (UA) NEGATIVE (NEGATIVE); LEUKOCYTE ESTERASE, URINE NEGATIVE (NEGATIVE); NITRITE,URINE NEGATIVE (NEGATIVE); OCCULT BLOOD,URINE NEGATIVE (NEGATIVE); PROTEIN,URINE NEGATIVE (NEGATIVE); UROBILINOGEN,URINE 0.2 (NORMAL) E.U./dL (NORMAL)
[2020-10-08 15:08] LABS: CLARITY,URINE CLEAR (CLEAR)
[2020-10-08 15:25] LABS: BASOPHILS % (AUTO) 0.5 %; EOSINOPHILS # (AUTO) 0.2 10^3/uL (0.0-0.7); EOSINOPHILS % (AUTO) 6.2 %; HCT - HEMATOCRIT 38.9 % (42.0-52.0); HGB - HEMOGLOBIN 13.2 g/dL (14.0-18.0); LYMPHOCYTES # (AUTO) 1.4 10^3/uL (1.5-3.5); LYMPHOCYTES % (AUTO) 37.9 %; MEAN CORPUSCULAR HEMOGLOBIN 33.8 pg (27.0-31.0); MEAN CORPUSCULAR HGB CONC 33.9 g/dL (32.0-36.0); MEAN CORPUSCULAR VOLUME 99.7 fL (80.0-94.0); MEAN PLATELET VOLUME 9.4 fL (7.4-11.4); MONOCYTES # (AUTO) 0.5 10^3/uL (0.0-1.0); MONOCYTES % (AUTO) 13.2 %; NEUTROPHILS # (AUTO) 1.6 10^3/uL (1.5-6.6); NEUTROPHILS % (AUTO) 42.2 %; PLT - PLATELET COUNT 232 10^3/uL (130-450); RED CELL DISTRIBUTION WIDTH 12.3 % (12.0-15.0); WHITE BLOOD COUNT 3.7 x10^3/uL (4.8-10.8)
[2020-10-08 15:37] LABS: ALBUMIN 4.9 g/dL (3.2-5.5); ALBUMIN/GLOBULIN RATIO 1.4 (1.0-2.2); BILIRUBIN,TOTAL 0.7 mg/dL (0.2-1.0); CALCIUM 10.1 mg/dL (8.5-10.3); POTASSIUM 4.6 mmol/L (3.5-5.0); TOTAL PROTEIN 8.3 g/dL (6.7-8.2)
[2020-10-08] MEDS ORDERED: KETOROLAC 30 MG/ML VIAL IM STA (17:57)
--- NOTE | 2020-10-08 17:59 | ED Physician Documentation ---
History of Present Illness - Stated complaint Stated Complaint: ABD PX, LOW BACK & HIP PX - Chief complaint Chief Complaint: Abd Pain - History obtained from History obtained from: Patient - Additonal information Additional information: 55yM with pmh etoh abuse, chronic back pain, osteoarthritis, PSH hip replacement p/w BL hip pain X several months, worse with exercise, nonradiating, aching, gradual onset and constant, waxing and waning. denies fever, neuro deficits, focal numbness or weakness. Review of Systems Constitutional: denies: Fever Musculoskeletal: reports: Back pain, Joint pain Neurologic: denies: Focal weakness, Numbness PD PAST MEDICAL HISTORY - Past Medical History Past Medical History: Yes Cardiovascular: Hypertension, High cholesterol Respiratory: Sleep apnea, CPAP use Neuro: Headaches, Other Endocrine/Autoimmune: None, Other GI: GERD, Pancreatitis, Cirrhosis : Incontinence HEENT: None Psych: Depression, Anxiety, Panic attacks, Claustrophobia Musculoskeletal: Osteoarthritis Derm: None - Past Surgical History Past Surgical History: Yes Ortho: Hip replacement, Arthroscopic surgery HEENT: Tracheostomy - Present Medications Home Medications: Ambulatory Orders Medication Instructions Recorded Confirmed Thiamine HCl [Vitamin B-1] 100 mg PO DAILY #30 tablet 08/17/18 06/13/20 Furosemide [Lasix] 40 mg PO DAILY 08/19/19 06/13/20 Cholecalciferol [Vitamin D3] 1,000 units PO DAILY 01/17/20 06/13/20 Gabapentin [Neurontin] 600 mg PO TID 01/17/20 06/13/20 Lactulose 30 gm PO TID 01/17/20 06/13/20 Multivitamin W/Minerals [Theragran 1 each PO DAILY 01/17/20 06/13/20 M] Propranolol [Inderal] 30 mg PO BID 01/17/20 06/13/20 Sucralfate [Carafate] 1 gm PO BIDAC 01/17/20 06/13/20 Tamsulosin [Flomax] 0.4 mg PO DAILY 01/17/20 06/13/20 buPROPion [Wellbutrin Sr] 150 mg PO DAILY #30 tablet 02/21/20 06/13/20 Famotidine [Pepcid] 40 mg PO DAILY 06/14/20 06/14/20 LORazepam [Ativan] 1 mg PO QID 06/14/20 06/14/20 Lipase/Protease/Amylase [Nathalie Ohara 1 cap PO TIDWM 06/14/20 06/14/20 6,000 Units Capsule] Ondansetron Odt [Zofran] 4 mg TL Q6H PRN #10 tablet 06/14/20 Pantoprazole Sodium 40 mg PO DAILY 06/14/20 06/14/20 Sucralfate [Carafate] 1 gm PO ACHS #30 tablet 06/14/20 chlordiazePOXIDE [Librium] 25 mg PO Q6H PRN #25 capsule 06/14/20 oxyCODONE [Roxicodone] 2.5 mg PO QID PRN 06/14/20 06/14/20 - Allergies Allergies/Adverse Reactions: Allergies Allergy/AdvReac Type Severity Reaction Status Date / Time lisinopril Allergy Mild Anaphylaxis Verified 10/08/20 14:36 - Social History Does the pt smoke?: No Smoking Status: Never smoker Does the pt drink ETOH?: No Does the pt have substance abuse?: No - Immunizations Immunizations are current?: Yes Immunizations: Other immun not current - POLST Patient has POLST: No POLST Status: DNR (pt clearly state to me it is DNR, Pt's mother at the bedside did not say no.) PD ED PE NORMAL - Vitals Vital signs reviewed: Yes - General General: 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, No acute distress - HEENT HEENT: Atraumatic, PERRL, EOMI - Male Male : Graphics Intern present (RN), Other (BL cremaster intact. nontender to palpation. normal ext male genitalia. sensory intact. no palpable hernia BL) - Back Back: No CVA TTP, No spinal TTP - Derm Derm: Normal color, Warm and dry - Extremities Extremities: No deformity, Other (discomfort with rom of BL hips. FROM. 2+ BL DP/PT pulses. nromal sensation and strength) Results - Vitals Vitals: Vital Signs - 24 hr 10/08/20 10/08/20 10/08/20 14:36 16:59 18:02 Temperature 36.8 C Heart Rate 69 65 67 Respiratory 16 16 18 Rate Blood Pressure 142/95 H 112/87 H 130/96 H O2 Saturation 98 100 99 Oxygen O2 Source Room air - Labs Labs: Laboratory Tests 10/08/20 10/08/2021 14:58 15:20 15:20 WBC 3.7 L RBC 3.90 L Hgb 13.2 L Hct 38.9 L MCV 99.7 H MCH 33.8 H MCHC 33.9 RDW 12.3 Plt Count 232 MPV 9.4 Neut # (Auto) 1.6 Lymph # (Auto) 1.4 L [place] # (Auto) 0.5 Eos # (Auto) 0.2 Baso # (Auto) 0.0 Absolute Nucleated RBC 0.00 Nucleated RBC % 0.0 Sodium 141 Potassium 4.6 Chloride 102 Carbon Dioxide 30 Anion Gap 9.0 BUN 15 Creatinine 1.0 Estimated GFR (MDRD) 77 L Glucose 76 Calcium 10.1 Total Bilirubin 0.7 AST 23 ALT 17 Alkaline Phosphatase 74 Total Protein 8.3 H Albumin 4.9 Globulin 3.4 Albumin/Globulin Ratio 1.4 Lipase 17 L Urine Color YELLOW Urine Clarity CLEAR Urine pH 6.0 Ur Specific [place] 1.015 Urine Protein NEGATIVE Urine Glucose (UA) NEGATIVE Urine Ketones NEGATIVE Urine Occult Blood NEGATIVE Urine Nitrite NEGATIVE Urine Bilirubin NEGATIVE Urine Urobilinogen 0.2 (NORMAL) Ur Leukocyte Esterase NEGATIVE Ur Microscopic Review NOT INDICATED Urine Culture Comments NOT INDICATED PD MEDICAL DECISION MAKING - ED course ED course: 55yM p/w chronic osteoarthritis of BL hips. return precautions given. f/u pmd. Departure - Departure Disposition: 01 Home, Self Care Clinical Impression: Chronic osteoarthritis Condition: Stable Instructions: Osteoarthritis Comments: You are seen in the emergency department for osteoarthritis of your bilateral hips. Please follow-up with physical therapy on Thursday. Try not to overexert yourself until that time and do gentle stretching exercises. Swimming can provide low resistance activity and is a good option for exercise. Return to emergency department if you develop any new or worsening symptoms or have other concerns. Discharge Date/Time: 10/08/20 18:14
[2020-10-08 18:02] VITALS: BP 130/96
== END 2020-10-08 18:14 | disposition home or self-care (01) ==
LOC: ED 14:28
DX: M16.0 Bilateral primary osteoarthritis of hip (principal); I10 Essential (primary) hypertension; G47.30 Sleep apnea, unspecified; K21.9 Gastro-esophageal reflux disease without esophagitis; E78.00 Pure hypercholesterolemia, unspecified; R32 Unspecified urinary incontinence; F32.9 Major depressive disorder, single episode, unspecified; F41.9 Anxiety disorder, unspecified; F41.0 Panic disorder [episodic paroxysmal anxiety]; F40.240 Claustrophobia; F10.11 Alcohol abuse, in remission; Z96.649 Presence of unspecified artificial hip joint; Z66 Do not resuscitate; Z79.899 Other long term (current) drug therapy; Z87.19 Personal history of other diseases of the digestive system
CPT/HCPCS: 36415; 80053; 81001; 81003; 83690; 85025; 87086; 96372; 99282; 99283

== ENCOUNTER 2020-10-10 07:00 | Outpatient (CLI) | payer MEDICARE, MEDICAID ==
[2020-10-10 18:32] LABS: ALBUMIN 4.4 g/dL (3.2-5.5); ALBUMIN/GLOBULIN RATIO 1.4 (1.0-2.2); ALKALINE PHOSPHATASE 83 IU/L (42-121); ALT ALANINE AMINOTRANSFERASE 16 IU/L (10-60); AST ASPARTATE AMINOTRANSFERASE 24 IU/L (10-42); BILIRUBIN,TOTAL 0.5 mg/dL (0.2-1.0); BUN - BLOOD UREA NITROGEN 15 mg/dL (6-20); CALCIUM 9.7 mg/dL (8.5-10.3); CARBON DIOXIDE - CO2 29 mmol/L (21-32); CHLORIDE 104 mmol/L (101-111); CREATININE 0.9 mg/dL (0.6-1.2); GFR - MDRD 87 (>89); GLUCOSE 119 mg/dL (70-100); POTASSIUM 4.5 mmol/L (3.5-5.0); SODIUM 143 mmol/L (135-145); TOTAL PROTEIN 7.5 g/dL (6.7-8.2); URIC ACID 7.2 mg/dL (2.6-7.2)
[2020-10-10 18:35] LABS: CRP - C-REACTIVE PROTEIN < 1.0 mg/dL (0-1.0)
[2020-10-10 20:49] LABS: RHEUMATOID FACTOR NEGATIVE (Negative)
== END 2020-10-10 23:59 | disposition home or self-care (01) ==
LOC: LAB.WCP 07:00
PROVIDERS: ATTEND Family Medicine
DX: K74.60 Unspecified cirrhosis of liver (principal); M25.50 Pain in unspecified joint
CPT/HCPCS: 36415; 80053; 84550; 85651; 86140; 86200; 86430

== ENCOUNTER 2020-11-23 14:18 | Outpatient (CLI) | payer MEDICARE, MEDICAID | END 2020-11-23 14:19 | disposition critical access hospital (66) | LOC: EMS 14:18 | DX: R09.2 Respiratory arrest (principal) | CPT/HCPCS: A0425; A0427 ==

== ENCOUNTER 2020-11-23 14:38 | Inpatient (IN) | payer MEDICARE, MEDICAID ==
--- NOTE | 2020-11-23 14:47 | ED Physician Documentation ---
PD HPI ALTERED MENTAL STATUS - Stated complaint Stated Complaint: AMS - History obtained from History obtained from: Patient, EMS (Report of impaired level of consciousness with fall. He was found on the ground minimally responsive to tactile stimulus and hypoventilating. Contusion on the forehead. intranasal then IV Narcan was given which had a prompt improvement. Repeated enroute when somnolent again.) - History of Present Illness Timing - onset: Today Timing - details: Other (unknown onset pattern) Quality / character: Unresponsive Associated symptoms: Stiff neck (complained of some frontal headache and stiff neck when conversant after Narcan.) Contributing factors: Intoxicated, Other (known alcoholism) Basline status: 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 Treatment CLIN NURSE: Accucheck, Narcan Similar symptoms before: Has not had sx before (not usually problem with opio ids; typically alcoholism.) Recently seen: Emergency Dept (frequent visits for alcohol intoxication) Review of Systems Unable to obtain: AMS PD PAST MEDICAL HISTORY - Past Medical History Cardiovascular: Hypertension, High cholesterol Respiratory: Sleep apnea, CPAP use Neuro: Headaches, Other Endocrine/Autoimmune: None, Other GI: GERD, Pancreatitis, Cirrhosis : Incontinence HEENT: None Psych: Depression, Anxiety, Panic attacks, Claustrophobia Musculoskeletal: Osteoarthritis Derm: None - Past Surgical History Past Surgical History: Yes Ortho: Hip replacement, Arthroscopic surgery HEENT: Tracheostomy - Present Medications Home Medications: Ambulatory Orders Medication Instructions Recorded Confirmed Thiamine HCl [Vitamin B-1] 100 mg PO DAILY #30 tablet 08/17/18 06/13/20 Furosemide [Lasix] 40 mg PO DAILY 08/19/19 06/13/20 Cholecalciferol [Vitamin D3] 1,000 units PO DAILY 01/17/20 06/13/20 Gabapentin [Neurontin] 600 mg PO TID 01/17/20 06/13/20 Lactulose 30 gm PO TID 01/17/20 06/13/20 Multivitamin W/Minerals [Theragran 1 each PO DAILY 01/17/20 06/13/20 M] Propranolol [Inderal] 30 mg PO BID 01/17/20 06/13/20 Sucralfate [Carafate] 1 gm PO BIDAC 01/17/20 06/13/20 Tamsulosin [Flomax] 0.4 mg PO DAILY 01/17/20 06/13/20 buPROPion [Wellbutrin Sr] 150 mg PO DAILY #30 tablet 02/21/20 06/13/20 Famotidine [Pepcid] 40 mg PO DAILY 06/14/20 06/14/20 LORazepam [Ativan] 1 mg PO QID 06/14/20 06/14/20 Lipase/Protease/Amylase [Emilyon Dr 1 cap PO TIDWM 06/14/20 06/14/20 6,000 Units Capsule] Ondansetron Odt [Zofran] 4 mg TL Q6H PRN #10 tablet 06/14/20 Pantoprazole Sodium 40 mg PO DAILY 06/14/20 06/14/20 Sucralfate [Carafate] 1 gm PO ACHS #30 tablet 06/14/20 chlordiazePOXIDE [Librium] 25 mg PO Q6H PRN #25 capsule 06/14/20 oxyCODONE [Roxicodone] 2.5 mg PO QID PRN 06/14/20 06/14/20 - Allergies Allergies/Adverse Reactions: Allergies Allergy/AdvReac Type Severity Reaction Status Date / Time lisinopril Allergy Mild Anaphylaxis Verified 11/23/20 16:31 - Social History Does the pt smoke?: No Smoking Status: Never smoker Does the pt drink ETOH?: No Does the pt have substance abuse?: No - Immunizations Immunizations are current?: Yes Immunizations: Other immun not current - POLST Patient has POLST: No POLST Status: DNR (pt clearly state to me it is DNR, Pt's mother at the bedside did not say no.) PD ED PE NORMAL - Vitals Vital signs reviewed: Yes - General General: Well developed/nourished, Other (forehead contusion left frontal. Was conversant but some slurring of speech on arrival. Became more somnolent after 10-15 minutes. Improved promptly again with Narcan. ) - HEENT HEENT: PERRL - Neck Neck: Supple, no meningeal sign, No bony TTP, No adenopathy - Cardiac Cardiac: RRR, No murmur - Respiratory Respiratory: Clear bilaterally - Abdomen Abdomen: Normal bowel sounds, Soft, Non distended, No organomegaly, Other (some tender upper abd without guarding. ) - Back Back: No CVA TTP - Derm Derm: Normal color, Warm and dry - Neuro Neuro: Normal speech. No: 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 (oriented to person and place) Eye Opening: To Voice Motor: Obeys Commands Verbal: Confused GCS Score: 13 Results - Vitals Vitals: Vital Signs - 24 hr 11/23/20 11/23/20 11/23/20 14:40 14:53 14:55 Temperature 37.1 C Heart Rate 77 72 Respiratory 10 L 9 L Rate Blood Pressure 134/102 H O2 Saturation 99 88 L 92 11/23/20 11/23/20 11/23/20 15:23 16:11 16:30 Temperature Heart Rate 69 70 53 L Respiratory 7 L 22 8 L Rate Blood Pressure 114/87 H 125/93 H 120/76 O2 Saturation 87 L 99 98 11/23/20 11/23/20 16:44 16:56 Temperature Heart Rate Respiratory Rate Blood Pressure O2 Saturation 85 L 100 Oxygen O2 Source Nasal cannula - Labs Labs: Laboratory Tests 11/23/20 11/23/20 11/23/20 15:11 15:11 15:11 WBC 3.7 L RBC 3.81 L Hgb 12.9 L Hct 37.6 L MCV 98.7 H MCH 33.9 H MCHC 34.3 RDW 13.2 Plt Count 187 MPV 8.7 Neut # (Auto) 1.6 Lymph # (Auto) 1.5 [place] # (Auto) 0.4 Eos # (Auto) 0.2 Baso # (Auto) 0.0 Absolute Nucleated RBC 0.00 Nucleated RBC % 0.0 Sodium 139 Potassium 3.8 Chloride 100 L Carbon Dioxide 27 Anion Gap 12.0 BUN 15 Creatinine 1.1 Estimated GFR (MDRD) 69 L Glucose 96 Calcium 9.5 Magnesium 2.0 Total Bilirubin 0.7 AST 28 ALT 16 Alkaline Phosphatase 75 Total Protein 7.8 Albumin 4.5 Globulin 3.3 Albumin/Globulin Ratio 1.4 Lipase 18 L TSH 2.94 Urine Color Urine Clarity Urine pH Ur Specific [place] Urine Protein Urine Glucose (UA) Urine Ketones Urine Occult Blood Urine Nitrite Urine Bilirubin Urine Urobilinogen Ur Leukocyte Esterase Ur Microscopic Review Urine Culture Comments Salicylates < 6.0 Urine Opiates Screen Ur Oxycodone Screen Urine Methadone Screen Ur Propoxyphene Screen Acetaminophen < 10 L Ur Barbiturates Screen Ur Tricyclics Screen Ur Phencyclidine Scrn Ur Amphetamine Screen U Methamphetamines Scrn U Benzodiazepines Scrn Urine Cocaine Screen U Cannabinoids Screen Ethyl Alcohol 146.3 11/23/20 15:52 WBC RBC Hgb Hct MCV MCH MCHC RDW Plt Count MPV Neut # (Auto) Lymph # (Auto) [place] # (Auto) Eos # (Auto) Baso # (Auto) Absolute Nucleated RBC Nucleated RBC % Sodium Potassium Chloride Carbon Dioxide Anion Gap BUN Creatinine Estimated GFR (MDRD) Glucose Calcium Magnesium Total Bilirubin AST ALT Alkaline Phosphatase Total Protein Albumin Globulin Albumin/Globulin Ratio Lipase TSH Urine Color YELLOW Urine Clarity CLEAR Urine pH 7.0 Ur Specific [place] 1.010 Urine Protein NEGATIVE Urine Glucose (UA) NEGATIVE Urine Ketones NEGATIVE Urine Occult Blood NEGATIVE Urine Nitrite NEGATIVE Urine Bilirubin NEGATIVE Urine Urobilinogen 0.2 (NORMAL) Ur Leukocyte Esterase NEGATIVE Ur Microscopic Review NOT INDICATED Urine Culture Comments NOT INDICATED Salicylates Urine Opiates Screen NEGATIVE Ur Oxycodone Screen NEGATIVE Urine Methadone Screen NEGATIVE Ur Propoxyphene Screen NEGATIVE Acetaminophen Ur Barbiturates Screen NEGATIVE Ur Tricyclics Screen POSITIVE H Ur Phencyclidine Scrn NEGATIVE Ur Amphetamine Screen NEGATIVE U Methamphetamines Scrn NEGATIVE U Benzodiazepines Scrn POSITIVE H Urine Cocaine Screen NEGATIVE U Cannabinoids Screen POSITIVE H Ethyl Alcohol - Rads (name of study) head CT Radiology: Prelim report reviewed (no ICH nor acute process), See rad report cervical CT Radiology: Prelim report reviewed (no acute fractures. ), See rad report PD MEDICAL DECISION MAKING - ED course Complexity details: reviewed results, re-evaluated patient (Needed repeat doses of Narcan at intervals when it was wearing off. He became very somnolent and hypoventilating minimally. This was responded to promptly with Narcan and he improved readily.), considered differential (Medication pills letter with him include Xanax and Adderall. No obvious opiates. He clearly has improvement with Narcan though.), d/w patient, d/w aws consultant (Hospitalist) Departure - Departure Disposition: 66 [facility] DC/Xfer Clinical Impression: Alcoholism Altered mental status Qualifiers: Altered mental status type: somnolence Qualified Code(s): R40.0 - Somnolence Fall Qualifiers: Encounter type: initial encounter Qualified Code(s): W19.XXXA - Unspecified fall, initial encounter Forehead contusion Qualifiers: Encounter type: initial encounter Qualified Code(s): S00.83XA - Contusion of other part of head, initial encounter Opiate or related narcotic overdose Qualifiers: Encounter type: initial encounter Injury intent: undetermined intent Qualified Code(s): T40.604A - Poisoning by unspecified narcotics, undetermined, initial encounter Overdose Qualifiers: Encounter type: initial encounter Injury intent: undetermined intent Qualified Code(s): T50.904A - Poisoning by unspecified drugs, medicaments and biological substances, undetermined, initial encounter Condition: Stable Record reviewed to determine appropriate education?: Yes
[2020-11-23] MEDS ORDERED: SODIUM CHLORIDE 0.9% 1,000 ML IV STA (14:54)
[2020-11-23 15:19] LABS: BASOPHILS % (AUTO) 0.8 %; EOSINOPHILS # (AUTO) 0.2 10^3/uL (0.0-0.7); EOSINOPHILS % (AUTO) 5.4 %; HCT - HEMATOCRIT 37.6 % (42.0-52.0); HGB - HEMOGLOBIN 12.9 g/dL (14.0-18.0); LYMPHOCYTES # (AUTO) 1.5 10^3/uL (1.5-3.5); LYMPHOCYTES % (AUTO) 41.4 %; MEAN CORPUSCULAR HEMOGLOBIN 33.9 pg (27.0-31.0); MEAN CORPUSCULAR HGB CONC 34.3 g/dL (32.0-36.0); MEAN CORPUSCULAR VOLUME 98.7 fL (80.0-94.0); MEAN PLATELET VOLUME 8.7 fL (7.4-11.4); MONOCYTES # (AUTO) 0.4 10^3/uL (0.0-1.0); MONOCYTES % (AUTO) 9.7 %; NEUTROPHILS # (AUTO) 1.6 10^3/uL (1.5-6.6); NEUTROPHILS % (AUTO) 42.2 %; PLT - PLATELET COUNT 187 10^3/uL (130-450); RED BLOOD COUNT 3.81 10^6/uL (4.70-6.10); RED CELL DISTRIBUTION WIDTH 13.2 % (12.0-15.0); WHITE BLOOD COUNT 3.7 x10^3/uL (4.8-10.8)
[2020-11-23 15:32] LABS: ACETAMINOPHEN < 10 ug/mL (10-30); ALBUMIN 4.5 g/dL (3.2-5.5); ALBUMIN/GLOBULIN RATIO 1.4 (1.0-2.2); ALKALINE PHOSPHATASE 75 IU/L (42-121); ALT ALANINE AMINOTRANSFERASE 16 IU/L (10-60); AST ASPARTATE AMINOTRANSFERASE 28 IU/L (10-42); BILIRUBIN,TOTAL 0.7 mg/dL (0.2-1.0); BUN - BLOOD UREA NITROGEN 15 mg/dL (6-20); CALCIUM 9.5 mg/dL (8.5-10.3); CARBON DIOXIDE - CO2 27 mmol/L (21-32); CHLORIDE 100 mmol/L (101-111); CREATININE 1.1 mg/dL (0.6-1.2); ETOH - ETHANOL 146.3 mg/dL; GFR - MDRD 69 (>89); GLUCOSE 96 mg/dL (70-100); LIPASE 18 U/L (22-51); POTASSIUM 3.8 mmol/L (3.5-5.0); SALICYLATE < 6.0 mg/dL; SODIUM 139 mmol/L (135-145); TOTAL PROTEIN 7.8 g/dL (6.7-8.2)
[2020-11-23] MEDS ORDERED: NALOXONE 0.4 MG/ML VIAL IVP STA (15:34)
[2020-11-23] MEDS ORDERED: NALOXONE 2 MG in SODIUM CHLORIDE 0.9% 495 ML IV STA (15:36)
--- NOTE | 2020-11-23 15:47 | CT Report ---
PROCEDURE: CERVICAL SPINE WO INDICATIONS: fall and struck head; has some neck pain TECHNIQUE: Noncontrast 3 mm thick sections acquired from the skull base to the T4 level. Sagittal and coronal r eformats were then constructed. For radiation dose reduction, the following was used: automated exp osure control, adjustment of mA and/or kV according to patient size. COMPARISON: 05/12/2020, 04/24/2020. Correlation is also made with the accompanying head CT, 11/21/2020 . FINDINGS: Image quality: Excellent. Bones: No fractures or dislocations. Visualized superior ribs are intact. Levoconvex scoliotic curvature is seen. Degenerative changes are seen throughout, with at least moder ate disc space narrowing throughout the cervical spine. Relatively prominent vertebral body sclerosis can be seen, which is centered at the C3-C4 level. A degree of vertebral body fusion is seen at C2-C 3. Soft tissues: Prevertebral soft tissues are normal in thickness. No paravertebral hematomas. No ap ical pneumothoraces. IMPRESSION: No acute fractures are seen. Prominent underlying degenerative changes are seen. Reviewed by: Billy Antunez MD on 11/23/2020 2:46 PM [email or web address] Approved by: Billy Antunez MD on 11/23/2020 2:46 PM AKDT Station ID: [id number]
--- NOTE | 2020-11-23 15:50 | CT Report ---
PROCEDURE: HEAD WO INDICATIONS: fall, struck head, altered MS. TECHNIQUE: Noncontrast 4.5 mm thick angled axial sections acquired from the foramen magnum to the vertex. For r adiation dose reduction, the following was used: automated exposure control, adjustment of mA and/or kV according to patient size. COMPARISON: 05/12/2020, 04/24/2020. Correlation is also made with the accompanying cervical spine CT, 11/23/2020. FINDINGS: Image quality: Excellent. CSF spaces: Basal cisterns are patent. No extra-axial fluid collections. Ventricles are normal in size and shape. Brain: No midline shift. No intracranial masses or hemorrhage. Muhammad-white matter interface is norm al. Skull and face: Mild scalp swelling can be seen involving the left forehead. No underlying calvarial fracture can be seen. Calvarium and visualized facial bones are intact, without suspicious lesions. Sinuses: Visualized sinuses and mastoids are clear. IMPRESSION: Mild left forehead scalp swelling, without an underlying fracture. No intracranial hemorrhage is seen. No significant intracranial abnormality is seen. Reviewed by: Billy Antunez MD on 11/23/2020 2:48 PM RACHID Approved by: Billy Antunez MD on 11/23/2020 2:48 PM AKDT Station ID: [id number]
[2020-11-23 16:05] LABS: MUDS CUTOFF CONCENTRATIONS CUTOFF CONC BELOW:
[2020-11-23 16:07] LABS: BILIRUBIN,URINE NEGATIVE (NEGATIVE); GLUCOSE, URINE (UA) NEGATIVE (NEGATIVE); KETONES,URINE (UA) NEGATIVE (NEGATIVE); LEUKOCYTE ESTERASE, URINE NEGATIVE (NEGATIVE); NITRITE,URINE NEGATIVE (NEGATIVE); OCCULT BLOOD,URINE NEGATIVE (NEGATIVE); PROTEIN,URINE NEGATIVE (NEGATIVE); UROBILINOGEN,URINE 0.2 (NORMAL) E.U./dL (NORMAL)
[2020-11-23 16:08] LABS: CLARITY,URINE CLEAR (CLEAR)
[2020-11-23 16:20] LABS: AMPHETAMINE SCREEN,URINE NEGATIVE (NEGATIVE); BARBITURATE SCREEN,UR NEGATIVE (NEGATIVE); BENZODIAZEPINES SCREEN, URINE POSITIVE (NEGATIVE); COCAINE SCREEN URINE NEGATIVE (NEGATIVE); METHADONE SCREEN, URINE NEGATIVE (NEGATIVE); METHAMPHETAMINES SCREEN, URINE NEGATIVE (NEGATIVE); OPIATE SCREEN, URINE NEGATIVE (NEGATIVE); OXYCODONE SCREEN, URINE NEGATIVE (NEGATIVE); PROPOXYPHENE SCREEN, URINE NEGATIVE (NEGATIVE); THC CANNABINOID SCREEN, URINE POSITIVE (NEGATIVE); TRICYCLIC ANTIDEPRESSANT,URINE POSITIVE (NEGATIVE)
[2020-11-23] MEDS ORDERED: KETOROLAC 30 MG/ML VIAL IVP STA (16:20)
[2020-11-23] MEDS ORDERED: ONDANSETRON 4 MG/2 ML VIAL IVP PRN (16:42)
[2020-11-23 17:06] LABS: B. PARAPERTUSSIS- RESP PCR PAN NOT DETECTED; B. PERTUSSIS- RESP PCR PANEL NOT DETECTED; C. PNEUMONIAE- RESP PCR PANEL NOT DETECTED; CORONAVIRUS 229E-RESP PCR NOT DETECTED; CORONAVIRUS HKU1-RESP PCR NOT DETECTED; CORONAVIRUS NL63-RESP PCR NOT DETECTED; CORONAVIRUS OC43-RESP PCR NOT DETECTED; HUMAN METAPNEUMOVIRUS NOT DETECTED; INFLUENZA A- RESP PCR PANEL NOT DETECTED; INFLUENZA B - RESP PCR PANEL NOT DETECTED; M. PNEUMONIAE- RESP PCR PANEL NOT DETECTED; PARAINFLUENZA VIRUS 1 NOT DETECTED; PARAINFLUENZA VIRUS 2 NOT DETECTED; PARAINFLUENZA VIRUS 3 NOT DETECTED; PARAINFLUENZA VIRUS 4 NOT DETECTED; RHINOVIRUS/ENTEROVIRUS NOT DETECTED; RSV- RESP PCR PANEL NOT DETECTED; SARS-CoV-2 -RESP PCR PANEL NOT DETECTED
[2020-11-23 17:25] LABS: ABG HCO3 23.7 mmol/L (22.0-26.0); ABG PCO2 29 mmHg (34-45); ABG PH 7.53 (7.35-7.45); ABG PO2 103 mmHg (80-100); ABG TCO2 24.6 MMOL/L (21.0-29.0)
[2020-11-23 17:26] LABS: ABG OXYGEN SATURATION 98 % (94-98)
[2020-11-23 17:39] LABS: INR 1.1 (0.8-1.2)
--- NOTE | 2020-11-23 17:40 | HISTORY & PHYSICAL EXAMINATION ---
Chief Complaint - Chief Complaint Chief Complaint: Obtundation History of Present Illness - Admitted From Admitted From:: ED - History Obtained From History obtained from: ED provider - History of Present Illness HPI Comment/Other: This is a 55-year-old WM with a remote Hx of Guillain-[place], peripheral neuropathy, and longstanding history of narcotic and sedative drug abuse, also alcohol abuse and withdrawal, fatty liver, pancreatitis, pancreatic pseudocyst, prior overdose with oxycodone and gabapentin. He has had many ED visits here related to these problems. Patient presented today obtunded and was able to say that he "fell and hit his head" and that he "took something his friend gave him". He was given Narcan by the medical data analyst with awakening but fell back asleep, N arcan was repeated with improvement but again he fell asleep. While getting a CT scan of his head he received Narcan for the third time with brief improvement and again became obtunded. He is being started on Narcan drip and being admitted to the ICU. His alcohol level is 140. His urine toxicology screen shows presence of tricyclics, benzodiazepines, marijuana, but no opiates. History - Past Medical History Cardiovascular: reports: Hypertension, High cholesterol Respiratory: reports: Sleep apnea, CPAP use Neuro: reports: Headaches, Other Endocrine/Autoimmune: reports: None, Other GI: reports: GERD, Pancreatitis, Cirrhosis : reports: Incontinence HEENT: reports: None Psych: reports: Depression, Anxiety, Panic attacks, Claustrophobia Musculoskeletal: reports: Osteoarthritis Derm: reports: None MRSA Hx?: No - Past Surgical History Ortho: reports: Hip replacement, Arthroscopic surgery HEENT: reports: Tracheostomy - Family & Social History Family History: Mother: Alive and Well Living arrangement: At home Living Situation: With family (his mother) Social History Notes: The patient lives at home with his mother. The patient smoked for 4 years and quit in 2005. He smoked a pack a day. The patient is an alcoholic and drinks daily. According to him he drinks 1-5 drinks of mixed drinks with vodka. The patient is his in 2008 due to pancreatitis. The patient has had a an issue with alcohol abuse since his teen years. The patient does use marijuana on occasion. He has no history of methamphetamine, heroin, cocaine, LSD abuse. - Substance History Use: Uses substance without health or social issues: Alcohol, Psychoactive Drug Abuse: Recurrent use of substance despite neg consequences: Alcohol, Sedative - POLST Patient has POLST: No POLST Status: Full Code (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 and to COFFEE ROASTER, 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.) Meds/Allgy - Home Medications Home Medications: Ambulatory Orders Medication Instructions Recorded Confirmed Thiamine HCl [Vitamin B-1] 100 mg PO DAILY #30 tablet 08/17/18 06/13/20 Furosemide [Lasix] 40 mg PO DAILY 08/19/19 11/23/20 Cholecalciferol [Vitamin D3] 1,000 units PO DAILY 01/17/20 06/13/20 Lactulose 30 gm PO TID 01/17/20 06/13/20 Multivitamin W/Minerals [Theragran 1 each PO DAILY 01/17/20 11/23/20 M] Propranolol [Inderal] 60 mg PO BID 01/17/20 11/23/20 Sucralfate [Carafate] 1 gm PO BIDAC 01/17/20 06/13/20 Tamsulosin [Flomax] 0.4 mg PO DAILY 01/17/20 06/13/20 buPROPion [Wellbutrin Sr] 150 mg PO DAILY #30 tablet 02/21/20 06/13/20 Famotidine [Pepcid] 40 mg PO DAILY 06/14/20 06/14/20 LORazepam [Ativan] 1 mg PO TID 06/14/20 11/23/20 Lipase/Protease/Amylase [Creon Dr 1 cap PO TIDWM 06/14/20 06/14/20 6,000 Units Capsule] Ondansetron Odt [Zofran] 4 mg TL Q6H PRN #10 tablet 06/14/20 Pantoprazole Sodium 40 mg PO DAILY 06/14/20 11/23/20 Sucralfate [Carafate] 1 gm PO ACHS #30 tablet 06/14/20 chlordiazePOXIDE [Librium] 25 mg PO Q6H PRN #25 capsule 06/14/20 oxyCODONE [Roxicodone] 2.5 mg PO QID PRN 06/14/20 06/14/20 Doxepin [SINEquan] 25 mg PO DAILY 11/23/20 11/23/20 Doxepin [SINEquan] 50 mg PO DAILY 11/23/20 11/23/20 Gabapentin [Neurontin] 800 mg PO TID 11/23/20 11/23/20 Midodrine HCl 5 mg PO TID 11/23/20 11/23/20 QUEtiapine [SEROquel] 50 mg PO DAILY 11/23/20 11/23/20 - Allergies Allergies/Adverse Reactions: Allergies Allergy/AdvReac Type Severity Reaction Status Date / Time lisinopril Allergy Mild Anaphylaxis Verified 11/23/20 16:31 Review of Systems - Ears, Nose & Throat Ears, Nose & Throat: reports: Other (dehydrated) - Gastrointestinal Gastrointestinal: reports: Abdominal pain, Reflux/heartburn - Genitourinary Genitourinary: reports: Incontinence - Neurological Neurological: reports: Numbness (lower legs and feet and also hands are numb) - All Other Systems All Other Systems: reports: Reviewed and negative Exam - Vital Signs Vital Signs: Vital Signs x48h Temp Pulse Resp BP Pulse Ox 11/23/20 17:00 16 L 15 118/84 H 98 11/23/20 16:56 100 11/23/20 16:44 85 L 11/23/20 16:30 53 L 8 L 120/76 98 11/23/20 16:11 70 22 125/93 H 99 11/23/20 15:23 69 7 L 114/87 H 87 L 11/23/20 14:55 92 11/23/20 14:53 72 9 L 88 L 11/23/20 14:40 37.1 C 77 10 L 134/102 H 99 - Physical Exam General Appearance: positive: No acute distress, Lethargic (but is speaking slowly with eyes closed) Eyes Bilateral: positive: EOMI ENT: positive: Dry mucous membranes, Other (Poor dentition) Neck: positive: Nml inspection, No JVD Respiratory: positive: No respiratory distress Cardiovascular: positive: Regular rate & rhythm, No murmur Abdomen: positive: No distention, Other (Tender in all 4 quadrants to light touch, no guarding or rebound) Skin: positive: No rash, Warm, Dry Extremities: positive: No pedal edema Neurologic/Psychiatric: positive: Oriented x3, Other (Slow quiet speech, numbness of soles and feet and palms) Conclusion/Plan - Problem List (1) Obtunded Conclusion/Plan: The fact that Narcan reversed his obtundation, If this is narcotic or benzodiazepine excess. Will treat in the ICU. (2) Benzodiazepine overdose Conclusion/Plan: Admit to the ICU. Start telemetry. Continue with the Narcan drip ordered in the ER, continue this for 12 to 24 hours. Consider contacting poison control for further recommendations. Order neuro checks q. 30 minutes then every hour then every 2 hours until tomorrow morning. Diet will be ice chips, advance as tolerated as he awakens. Obtain ABG to assure he is not CO2 retaining and acidotic. (3) Substance abuse Conclusion/Plan: As per history. Will need to get accurate reconciled list of his medicines by pharmacy in order to avoid benzodiazepine and other substance withdrawal. (4) Alcoholism Conclusion/Plan: Will order CIWA protocol. We will not give scheduled Librium due to current benzodiazepine excess. Continue with his thiamine, vitamin and other supplements if he is able to be awake enough to swallow. Follow LFTs daily and ammonia level if it is elevated (5) Forehead contusion Conclusion/Plan: Clean and topical dressing for management. 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 Most likely this is bone marrow suppression from alcohol abuse. Follow CBC daily - Lab Results Fish Bones: 11/23/20 15:11 11/23/20 15:11
[2020-11-23] MEDS: DEXTROSE 5%-0.9% NACL 1,000 ML IV SCH (18:00)
[2020-11-23] MEDS ORDERED: SODIUM CHLORIDE 0.9% 500 ML IV ONE ×2 (19:52→23:26)
[2020-11-23] MEDS ORDERED: NALOXONE 0.4 MG/1 ML 10 ML MDV IV ONE (19:55)
[2020-11-23] MEDS: NALOXONE 2 MG in SODIUM CHLORIDE 0.9% 495 ML IV SCH ×2 (20:00→23:28)
[2020-11-23] MEDS: SODIUM CHLORIDE FLUSH 0.9% 10 ML SYRINGE IVP SCH ×2 (20:45→21:59)
[2020-11-23] MEDS: FAMOTIDINE 20 MG/2 ML VIAL IVP SCH (20:58)
[2020-11-23] MEDS: ACETAMINOPHEN 325 MG TABLET PO PRN (21:56)
[2020-11-23] MEDS: KETOROLAC 30 MG/ML VIAL IVP PRN (21:57)
[2020-11-24] MEDS ORDERED: NALOXONE 0.4 MG/ML VIAL ONE ×2 (03:08→05:45)
[2020-11-24] MEDS ORDERED: SODIUM CHLORIDE 0.9% 500 ML IV ONE ×2 (03:11→05:42)
[2020-11-24] MEDS: NALOXONE 2 MG in SODIUM CHLORIDE 0.9% 495 ML IV SCH ×3 (03:16→08:53)
[2020-11-24] MEDS: DEXTROSE 5%-0.9% NACL 1,000 ML IV SCH ×2 (04:03→19:17)
[2020-11-24] MEDS: KETOROLAC 30 MG/ML VIAL IVP PRN ×3 (04:06→17:23)
[2020-11-24] MEDS: ACETAMINOPHEN 325 MG TABLET PO PRN ×3 (04:06→19:43)
[2020-11-24] MEDS: SODIUM CHLORIDE FLUSH 0.9% 10 ML SYRINGE IVP PRN (04:07)
[2020-11-24 04:58] LABS: BASOPHILS % (AUTO) 0.9 %; EOSINOPHILS # (AUTO) 0.3 10^3/uL (0.0-0.7); HCT - HEMATOCRIT 35.9 % (42.0-52.0); HGB - HEMOGLOBIN 11.9 g/dL (14.0-18.0); LYMPHOCYTES # (AUTO) 1.9 10^3/uL (1.5-3.5); LYMPHOCYTES % (AUTO) 40.8 %; MEAN CORPUSCULAR HEMOGLOBIN 33.4 pg (27.0-31.0); MEAN CORPUSCULAR HGB CONC 33.1 g/dL (32.0-36.0); MEAN CORPUSCULAR VOLUME 100.8 fL (80.0-94.0); MEAN PLATELET VOLUME 9.3 fL (7.4-11.4); MONOCYTES # (AUTO) 0.5 10^3/uL (0.0-1.0); MONOCYTES % (AUTO) 9.8 %; NEUTROPHILS # (AUTO) 1.9 10^3/uL (1.5-6.6); NEUTROPHILS % (AUTO) 41.3 %; PLT - PLATELET COUNT 156 10^3/uL (130-450); RED BLOOD COUNT 3.56 10^6/uL (4.70-6.10); RED CELL DISTRIBUTION WIDTH 13.3 % (12.0-15.0); WHITE BLOOD COUNT 4.6 x10^3/uL (4.8-10.8)
[2020-11-24 05:14] LABS: ALBUMIN 3.5 g/dL (3.2-5.5); ALBUMIN/GLOBULIN RATIO 1.5 (1.0-2.2); BILIRUBIN,TOTAL 0.9 mg/dL (0.2-1.0); CALCIUM 8.7 mg/dL (8.5-10.3); CREATININE 1.1 mg/dL (0.6-1.2); MAGNESIUM 1.8 mg/dL (1.7-2.8); PHOSPHORUS 3.9 mg/dL (2.5-4.6); POTASSIUM 3.8 mmol/L (3.5-5.0); TOTAL PROTEIN 5.9 g/dL (6.7-8.2)
--- NOTE | 2020-11-24 08:37 | PROVIDER PROGRESS NOTE ---
Assessment/Plan - Problem List (1) Obtunded Assessment/Plan: Resp rate is still low this morning at 6-12. Will try to titrate iv Narcan drip to off, keeping resp rate > 10. Will advance his diet since he is more awake, able to take in a diet (2) Benzodiazepine overdose Assessment/Plan: Patient is more awake today, to be able to describe what happened to him yester day:. Patient drove his mother to her eye doctor appointment and brought her back home. He then "took his medications" and went to sleep. The mother heard him fall when he was in the kitchen and he got "stuck between the refrigerator and stove". She called an ambulance. One of the responders said he "looked " and they started doing CPR in his chest. Today he notes that his ribs are tender anteriorly. He cannot remember what his "friend gave him" which is what he told the ED provider yesterday. Continue to manage with Narcan tapering down and then CIWA protocol and watch for benzodiazepine withdrawal and alcohol withdrawal. 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 When he is stabilized, social work consult will be requested (4) Alcoholism Assessment/Plan: His LFTs are normal as well as ammonia level. Today the patient will be at 48 hours after his last intake of vodka. I am starting to see shakes/tremulousness, of his lower jaw when he is speaking. The BACK FILLER OPERATOR was made aware of this. CIWA protocol has already been ordered but no lorazepam yet since he is still is oversedated with his benzodiazepine overdose. He is getting a banana bag which contains vitamins, thiamine. Will change to oral supplements since he is more awake, able to take a diet. (5) Forehead contusion Qualifiers: Encounter type: subsequent encounter Qualified Code(s): S00.83XD - Contusion of other part of head, subsequent encounter Assessment/Plan: Topical care is planned. 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 We will resume his gabapentin when he is more alert (7) Neutropenia Assessment/Plan: Improving slightly. I suspect it is from alcohol suppression of his bone marrow. Follow CBC daily - Current Meds Current Meds: Current Medications Generic Name Dose Route Start Last Admin Trade Name Freq PRN Reason Stop Dose Admin Acetaminophen 650 mg 11/23/20 21:35 11/24/20 04:06 Acetaminophen 325 Mg Tablet PO 650 mg Q6HR PRN Administration Pain or Fever > 38C (100.4F) Famotidine 20 mg 11/23/20 21:00 11/23/20 20:58 Famotidine 20 Mg/2 Ml Vial IVP 20 mg BID ROSIE Administration Dextrose/Sodium Chloride 1,000 mls @ 100 mls/hr 11/23/20 17:00 11/24/20 08:24 D5ns IV 0 mls/hr .Q10H ROSIE Infusion Naloxone HCl 2 mg/ Sodium 500 mls @ 100 mls/hr 11/23/20 20:00 11/24/20 05:47 Chloride IV 0.8 mg/hr .Q5H ROSIE 200 mls/hr Administration Protocol 0.4 MG/HR Ketorolac Tromethamine 30 mg 11/23/20 21:36 11/24/20 04:06 Ketorolac 30 Mg/Ml Vial IVP 11/28/20 21:35 30 mg Q6HR PRN Administration PAIN Sodium Chloride 10 ml 11/23/20 17:00 11/23/20 21:59 Sodium Chloride Flush 0.9% 10 Ml Syringe IVP 10 ml 0100,0900,1700 ROSIE Administration Sodium Chloride 10 ml 11/23/20 16:42 11/24/20 04:07 Sodium Chloride Flush 0.9% 10 Ml Syringe IVP 10 ml PRN PRN Administration NEEDED PER PROVIDER ORDERS - Lab Result Fish Bone Diagrams: 11/24/20 04:53 11/24/20 04:53 - Additional Planning My Orders: My Active Orders 11/23/20 16:42 Activity Orders [RC] Q2HR Blood Glucose POC [RC] 0000,0600,1200,1800 Daily Weight [RC] 0600 Peaz Insertion [RC] QSHIFT IO [RC] Q1HR IV Insert [RC] ONCE Initiate Bowel Care Protocol [RC] QSHIFT Initiate Flu Vaccine Screening [RC] ONCE Initiate ICU Electrolyte Prot. [RC] .protocol Initiate Personal Care Protoco [RC] .protocol Initiate Pneumonia Vaccine Scr [RC] ONCE Turn and Reposition [RC] PRN Vital Signs [RC] Q2HR Ondansetron Inj [Zofran Inj] 4 mg IVP Q6HR PRN Sodium Chloride Flush 0.9% [Normal Saline Flush 0.9%] 10 ml IVP PRN PRN Condition of Patient [OTHERS] Routine DVT Prophylaxis [OTHERS] Routine 11/23/20 16:44 Telemetry- [RC] Q4HR 11/23/20 16:47 Oxygen Therapy [RC] .PRN SCDs [RC] QSHIFT 11/23/20 16:49 Initiate Line Care Protocol [RC] QSUTFT 11/23/20 16:53 Neuro Check [RC] Q2H 11/23/20 17:00 Dextrose 5%-0.9% NaCl [D5ns] 1,000 ml IV 100 mls/hr Sodium Chloride Flush 0.9% [Normal Saline Flush 0.9%] 10 ml IVP 0100,0900,1700 11/23/20 19:07 CIWA - AR Score Card [RC] Q4HR 11/23/20 20:00 Sodium Chloride 0.9% [Normal Saline 0.9%] 495 ml Naloxone [Narcan] 2 mg IV 0.4 mg/hr 11/23/20 21:00 Famotidine [Pepcid] 20 mg IVP BID 11/24/20 Breakfast Clear Liquid Diet [DIET] 11/24/20 08:33 Miscellaenous Nursing Order [RC] ONCE 11/24/20 09:00 Multivitamin [Infuvite] 10 ml Thiamine Inj [Vitamin B-1 Inj] 100 mg Folic Acid Inj [Folic Acid] 1 mg Sodium Chloride 0.9% [Normal Saline 0.9%] 1,000 ml IV DAILY 11/25/20 05:00 CBC - COMP BLD CT W/AUTO DIFF [HEME] DAILYLAB COMPREHENSIVE METABOLIC PANEL [CHEM] DAILYLAB 11/26/20 05:00 CBC - COMP BLD CT W/AUTO DIFF [HEME] DAILYLAB Subjective - Subjective Patient Reports: Back Pain, Pain (in multiple areas of body) Objective Vital Signs: Vital Signs - 24 hr 11/23/20 11/23/20 11/23/20 14:40 14:53 14:55 Temperature 37.1 C Heart Rate 77 72 Heart Rate [ Monitoring electrodes] Respiratory 10 L 9 L Rate Blood Pressure 134/102 H Blood Pressure [Left Brachial artery] O2 Saturation 99 88 L 92 11/23/20 11/23/20 11/23/20 15:23 16:11 16:30 Temperature Heart Rate 69 70 53 L Heart Rate [ Monitoring electrodes] Respiratory 7 L 22 8 L Rate Blood Pressure 114/87 H 125/93 H 120/76 Blood Pressure [Left Brachial artery] O2 Saturation 87 L 99 98 11/23/20 11/23/20 11/23/20 16:44 16:56 17:00 Temperature Heart Rate 16 L Heart Rate [ Monitoring electrodes] Respiratory 15 Rate Blood Pressure 118/84 H Blood Pressure [Left Brachial artery] O2 Saturation 85 L 100 98 11/23/20 11/23/20 11/23/20 17:55 17:58 18:23 Temperature 36.4 C L Heart Rate Heart Rate [ 49 L 51 L 51 L Monitoring electrodes] Respiratory 12 15 12 Rate Blood Pressure Blood Pressure 140/100 H 136/95 H 149/98 H [Left Brachial artery] O2 Saturation 100 100 11/23/20 11/23/20 11/23/20 19:00 20:00 20:59 Temperature 36.5 C Heart Rate Heart Rate [ 51 L 51 L 62 Monitoring electrodes] Respiratory 11 L 14 15 Rate Blood Pressure Blood Pressure 134/93 H 125/84 H 120/82 H [Left Brachial artery] O2 Saturation 100 100 98 11/23/20 11/24/20 11/24/20 23:00 01:00 03:00 Temperature Heart Rate Heart Rate [ 56 L 56 L 54 L Monitoring electrodes] Respiratory 12 10 L 6 L Rate Blood Pressure Blood Pressure 103/72 92/61 94/67 [Left Brachial artery] O2 Saturation 98 100 98 11/24/20 11/24/20 05:00 07:00 Temperature 36.5 C Heart Rate Heart Rate [ 47 L 44 L Monitoring electrodes] Respiratory 11 L 10 L Rate Blood Pressure Blood Pressure 103/73 120/82 H [Left Brachial artery] O2 Saturation 100 99 Oxygen O2 Source Nasal cannula I&O (Last 24 Hrs): Intake and Output Totals x24h 11/22/20 11/23/20 11/24/20 23:59 23:59 23:59 Intake Total 2110.000 2535.0 Output Total 2019 231 Balance 90.000 2304.0 General: Alert, Oriented x3, Other (Speech is slow but appropriate) HEENT: EOMI, Mucous membr. moist/pink Neck: Supple, No JVD Neuro: Alert, Non Focal, Other (Fine tremor of his left lower jaw is starting, when he speaks) Cardiovascular: Regular rate, No murmurs Respiratory: No respiratory distress, Breath sounds nml Abdomen: Normal bowel sounds, Soft Extremities: No edema - Results Results: Laboratory Results WBC 4.6 x10^3/uL (4.8-10.8) L 11/24/20 04:53 RBC 3.56 10^6/uL (4.70-6.10) L 11/24/20 04:53 Hgb 11.9 g/dL (14.0-18.0) L 11/24/20 04:53 Hct 35.9 % (42.0-52.0) L 11/24/20 04:53 MCV 100.8 fL (80.0-94.0) H 11/24/20 04:53 MCH 33.4 pg (27.0-31.0) H 11/24/20 04:53 MCHC 33.1 g/dL (32.0-36.0) 11/24/20 04:53 RDW 13.3 % (12.0-15.0) 11/24/20 04:53 Plt Count 156 10^3/uL (130-450) 11/24/20 04:53 MPV 9.3 fL (7.4-11.4) 11/24/20 04:53 Neut # (Auto) 1.9 10^3/uL (1.5-6.6) 11/24/20 04:53 Lymph # (Auto) 1.9 10^3/uL (1.5-3.5) 11/24/20 04:53 Saunders # (Auto) 0.5 10^3/uL (0.0-1.0) 11/24/20 04:53 Eos # (Auto) 0.3 10^3/uL (0.0-0.7) 11/24/20 04:53 Baso # (Auto) 0.0 10^3/uL (0.0-0.1) 11/24/20 04:53 Absolute Nucleated RBC 0.00 x10^3/uL 11/24/20 04:53 Nucleated RBC % 0.0 /100WBC 11/24/20 04:53 PT 12.0 secs (9.9-12.6) 11/23/20 17:25 INR 1.1 (0.8-1.2) 11/23/20 17:25 Bld Gas Analysis Time 1724 11/23/20 17:15 Sample Site RIGHT BRACHIAL 11/23/20 17:15 ABG pH 7.53 (7.35-7.45) H 11/23/20 17:15 ABG pCO2 29 mmHg (34-45) L 11/23/20 17:15 ABG pO2 103 mmHg (80-100) H 11/23/20 17:15 ABG HCO3 23.7 mmol/L (22.0-26.0) 11/23/20 17:15 ABG Total CO2 24.6 MMOL/L (21.0-29.0) 11/23/20 17:15 ABG O2 Saturation 98 % (94-98) 11/23/20 17:15 ABG Base Excess 2.0 mmol/L (-2.0-3.0) 11/23/20 17:15 Arian Test NOT APPLICABLE 11/23/20 17:15 O2 Delivery Device NASAL CANNULA 11/23/20 17:15 O2 Liters/Min 1.50 LPM 11/23/20 17:15 Sodium 142 mmol/L (135-145) 11/24/20 04:53 Potassium 3.8 mmol/L (3.5-5.0) 11/24/20 04:53 Chloride 109 mmol/L (101-111) 11/24/20 04:53 Carbon Dioxide 26 mmol/L (21-32) 11/24/20 04:53 Anion Gap 7.0 (6-13) 11/24/20 04:53 BUN 16 mg/dL (6-20) 11/24/20 04:53 Creatinine 1.1 mg/dL (0.6-1.2) 11/24/20 04:53 Estimated GFR (MDRD) 69 (>89) L 11/24/20 04:53 Glucose 108 mg/dL (70-100) H 11/24/20 04:53 Calcium 8.7 mg/dL (8.5-10.3) 11/24/20 04:53 Phosphorus 3.9 mg/dL (2.5-4.6) 11/24/20 04:53 Magnesium 1.8 mg/dL (1.7-2.8) 11/24/20 04:53 Total Bilirubin 0.9 mg/dL (0.2-1.0) 11/24/20 04:53 GGT 44 IU/L (8-55) 11/24/20 04:53 AST 22 IU/L (10-42) 11/24/20 04:53 ALT 14 IU/L (10-60) 11/24/20 04:53 Alkaline Phosphatase 63 IU/L (42-121) 11/24/20 04:53 Ammonia 28.9 umol/L (7-35) 11/24/20 04:53 Total Protein 5.9 g/dL (6.7-8.2) L 11/24/20 04:53 Albumin 3.5 g/dL (3.2-5.5) 11/24/20 04:53 Globulin 2.4 g/dL (2.1-4.2) 11/24/20 04:53 Albumin/Globulin Ratio 1.5 (1.0-2.2) 11/24/20 04:53 Lipase 18 U/L (22-51) L 11/23/20 15:11 TSH 2.94 uIU/mL (0.34-5.60) 11/23/20 15:11 Urine Color YELLOW 11/23/20 15:52 Urine Clarity CLEAR (CLEAR) 11/23/20 15:52 Urine pH 7.0 PH (5.0-7.5) 11/23/20 15:52 Ur Specific [place] 1.010 (1.002-1.030) 11/23/20 15:52 Urine Protein NEGATIVE mg/dL (NEGATIVE) 11/23/20 15:52 Urine Glucose (UA) NEGATIVE mg/dL (NEGATIVE) 11/23/20 15:52 Urine Ketones NEGATIVE mg/dL (NEGATIVE) 11/23/20 15:52 Urine Occult Blood NEGATIVE (NEGATIVE) 11/23/20 15:52 Urine Nitrite NEGATIVE (NEGATIVE) 11/23/20 15:52 Urine Bilirubin NEGATIVE (NEGATIVE) 11/23/20 15:52 Urine Urobilinogen 0.2 (NORMAL) E.U./dL (NORMAL) 11/23/20 15:52 Ur Leukocyte Esterase NEGATIVE (NEGATIVE) 11/23/20 15:52 Ur Microscopic Review NOT INDICATED 11/23/20 15:52 Urine Culture Comments NOT INDICATED 11/23/20 15:52 Nasal Adenovirus (PCR) NOT DETECTED 11/23/20 16:10 Nasal B. parapertussis DNA (PCR) NOT DETECTED 11/23/20 16:10 Nasal Coronavir 229E PCR NOT DETECTED 11/23/20 16:10 Nasal Coronavir HKU1 PCR NOT DETECTED 11/23/20 16:10 Nasal Coronavir NL63 PCR NOT DETECTED 11/23/20 16:10 Nasal Coronavir OC43 PCR NOT DETECTED 11/23/20 16:10 Nasal Enterovir/Rhinovir PCR NOT DETECTED 11/23/20 16:10 Nasal Influenza B PCR NOT DETECTED 11/23/20 16:10 Nasal Influenza A PCR NOT DETECTED 11/23/20 16:10 Nasal Parainfluen 1 PCR NOT DETECTED 11/23/20 16:10 Nasal Parainfluen 2 PCR NOT DETECTED 11/23/20 16:10 Nasal Parainfluen 3 PCR NOT DETECTED 11/23/20 16:10 Nasal Parainfluen 4 PCR NOT DETECTED 11/23/20 16:10 Nasal RSV (PCR) NOT DETECTED 11/23/20 16:10 Nasal Screen MRSA (PCR) NEGATIVE (NEGATIVE) 11/23/20 17:40 Nasal B.pertussis DNA PCR NOT DETECTED 11/23/20 16:10 Nasal C.pneumoniae (PCR) NOT DETECTED 11/23/20 16:10 Lito Human Metapneumo PCR NOT DETECTED 11/23/20 16:10 Nasal M.pneumoniae (PCR) NOT DETECTED 11/23/20 16:10 Nasal SARS-CoV-2 (PCR) NOT DETECTED 11/23/20 16:10 Salicylates < 6.0 mg/dL 11/23/20 15:11 Urine Opiates Screen NEGATIVE (NEGATIVE) 11/23/20 15:52 Ur Oxycodone Screen NEGATIVE (NEGATIVE) 11/23/20 15:52 Urine Methadone Screen NEGATIVE (NEGATIVE) 11/23/20 15:52 Ur Propoxyphene Screen NEGATIVE (NEGATIVE) 11/23/20 15:52 Acetaminophen < 10 ug/mL (10-30) L 11/23/20 15:11 Ur Barbiturates Screen NEGATIVE (NEGATIVE) 11/23/20 15:52 Ur Tricyclics Screen POSITIVE (NEGATIVE) H 11/23/20 15:52 Ur Phencyclidine Scrn NEGATIVE (NEGATIVE) 11/23/20 15:52 Ur Amphetamine Screen NEGATIVE (NEGATIVE) 11/23/20 15:52 U Methamphetamines Scrn NEGATIVE (NEGATIVE) 11/23/20 15:52 U Benzodiazepines Scrn POSITIVE (NEGATIVE) H 11/23/20 15:52 Urine Cocaine Screen NEGATIVE (NEGATIVE) 11/23/20 15:52 U Cannabinoids Screen POSITIVE (NEGATIVE) H 11/23/20 15:52 Ethyl Alcohol 146.3 mg/dL 11/23/20 15:11 - Procedures Procedures: Procedures INSERTION OF INFUSION DEVICE INTO R [facility], PERC APPROACH (08/19/19) INSPECTION OF LOWER INTESTINAL TRACT, ENDO (01/25/18) ULTRASONOGRAPHY OF SUPERIOR VENA CAVA, GUIDANCE (08/19/19)
[2020-11-24] MEDS: FAMOTIDINE 20 MG/2 ML VIAL IVP SCH ×2 (08:44→20:55)
[2020-11-24] MEDS: SODIUM CHLORIDE FLUSH 0.9% 10 ML SYRINGE IVP SCH ×3 (08:45→20:55)
[2020-11-24] MEDS ORDERED: MULTIVITAMIN 10 ML, THIAMINE INJ 100 MG, FOLIC ACID INJ 1 MG in SODIUM CHLORIDE 0.9% 1,... IV SCH (09:00)
--- NOTE | 2020-11-24 12:53 | PHARMACY PROGRESS NOTE ---
- Best Possible Medication History Admit Date and Time: 11/23/20 1620 Processed by: Pharmacy Medication History completed: Yes Patient Interview: Pt unable to participate Secondary Source(s): Prescription bottles, Physician records, Pharmacy records, Insurance records Patient has not filled lactulose since June of 2020 and propranolol since November of 2019. Due to patient's obtunded state, medication list was updated using prescription bottles that patient brought in along with insurance/pharmacy records and [employer]. As the person ultimately responsible for medication therapy, providers are able to order a medication from an existing home medication list in [facility] via the "Reconcile Routine" prior to Confirmation of that medication by ground support equipment assembler. Such practice is discouraged except when the physician, in their clinical judgment, deems that a medical need exists for a medication without regard to previous use.
[2020-11-24] MEDS: MIDODRINE 2.5 MG TABLET PO SCH (17:12)
[2020-11-24] MEDS: LIPASE/PROTEASE/AMYLASE CAPSULE PO SCH (17:23)
[2020-11-24] MEDS: traMADol 50 MG TABLET PO PRN (20:54)
[2020-11-24] MEDS: DOXEPIN 25 MG CAPSULE PO SCH (20:55)
[2020-11-24] MEDS: LORazepam 1 MG TABLET PO PRN (20:55)
[2020-11-24] MEDS ORDERED: PROPRANOLOL 10 MG TABLET PO SCH (21:00)
[2020-11-24] MEDS: GABAPENTIN 400 MG CAPSULE PO SCH (21:48)
[2020-11-24] MEDS: LACTULOSE 10 GM /15 ML UDC PO SCH (21:49)
[2020-11-25] MEDS: DEXTROSE 5%-0.9% NACL 1,000 ML IV SCH (04:09)
[2020-11-25 05:10] LABS: BASOPHILS % (AUTO) 0.7 %; EOSINOPHILS # (AUTO) 0.4 10^3/uL (0.0-0.7); EOSINOPHILS % (AUTO) 8.5 %; HCT - HEMATOCRIT 38.9 % (42.0-52.0); HGB - HEMOGLOBIN 12.6 g/dL (14.0-18.0); LYMPHOCYTES # (AUTO) 1.5 10^3/uL (1.5-3.5); LYMPHOCYTES % (AUTO) 32.2 %; MEAN CORPUSCULAR HEMOGLOBIN 33.1 pg (27.0-31.0); MEAN CORPUSCULAR HGB CONC 32.4 g/dL (32.0-36.0); MEAN CORPUSCULAR VOLUME 102.1 fL (80.0-94.0); MEAN PLATELET VOLUME 9.7 fL (7.4-11.4); MONOCYTES # (AUTO) 0.4 10^3/uL (0.0-1.0); MONOCYTES % (AUTO) 8.3 %; NEUTROPHILS # (AUTO) 2.3 10^3/uL (1.5-6.6); NEUTROPHILS % (AUTO) 50.1 %; PLT - PLATELET COUNT 167 10^3/uL (130-450); RED BLOOD COUNT 3.81 10^6/uL (4.70-6.10); RED CELL DISTRIBUTION WIDTH 13.5 % (12.0-15.0); WHITE BLOOD COUNT 4.6 x10^3/uL (4.8-10.8)
[2020-11-25 05:22] LABS: ALBUMIN 3.7 g/dL (3.2-5.5); ALBUMIN/GLOBULIN RATIO 1.4 (1.0-2.2); CALCIUM 9.2 mg/dL (8.5-10.3); POTASSIUM 3.9 mmol/L (3.5-5.0); TOTAL PROTEIN 6.4 g/dL (6.7-8.2)
[2020-11-25] MEDS: GABAPENTIN 400 MG CAPSULE PO SCH ×3 (05:59→21:10)
[2020-11-25] MEDS: ACETAMINOPHEN 325 MG TABLET PO PRN ×2 (06:03→22:56)
[2020-11-25] MEDS: LACTULOSE 10 GM /15 ML UDC PO SCH ×3 (06:05→21:17)
[2020-11-25] MEDS ORDERED: PANTOPRAZOLE 40 MG TABLET ONE (06:36)
[2020-11-25] MEDS: FAMOTIDINE 20 MG/2 ML VIAL IVP SCH ×2 (06:38→21:12)
[2020-11-25] MEDS: SODIUM CHLORIDE FLUSH 0.9% 10 ML SYRINGE IVP PRN ×2 (06:38→19:41)
[2020-11-25] MEDS: PANTOPRAZOLE 40 MG TABLET PO SCH (06:38)
[2020-11-25] MEDS: LIPASE/PROTEASE/AMYLASE CAPSULE PO SCH ×3 (07:43→17:12)
[2020-11-25] MEDS: SODIUM CHLORIDE FLUSH 0.9% 10 ML SYRINGE IVP SCH ×3 (07:43→21:12)
[2020-11-25] MEDS: PRENATAL VITAMIN TABLET PO SCH (07:43)
[2020-11-25] MEDS: MIDODRINE 2.5 MG TABLET PO SCH ×3 (07:43→16:11)
[2020-11-25] MEDS: LORazepam 1 MG TABLET PO PRN ×2 (07:43→21:11)
[2020-11-25] MEDS: KETOROLAC 30 MG/ML VIAL IVP PRN ×2 (07:52→19:41)
[2020-11-25] MEDS: THIAMINE 100 MG TABLET PO SCH (09:12)
[2020-11-25] MEDS: FOLIC ACID 1 MG TABLET PO SCH (09:12)
[2020-11-25] MEDS: CHOLECALCIFEROL 25 MCG TABLET PO SCH (09:12)
[2020-11-25] MEDS: QUEtiapine 25 MG TABLET PO SCH (09:12)
[2020-11-25] MEDS: CYANOCOBALAMIN 500 MCG TABLET PO SCH (09:12)
[2020-11-25 10:27] LABS: BASOPHILS % (AUTO) 0.3 %; EOSINOPHILS # (AUTO) 0.2 10^3/uL (0.0-0.7); EOSINOPHILS % (AUTO) 3.3 %; HCT - HEMATOCRIT 37.4 % (42.0-52.0); HGB - HEMOGLOBIN 12.9 g/dL (14.0-18.0); LYMPHOCYTES # (AUTO) 0.5 10^3/uL (1.5-3.5); LYMPHOCYTES % (AUTO) 7.6 %; MEAN CORPUSCULAR HEMOGLOBIN 33.6 pg (27.0-31.0); MEAN CORPUSCULAR HGB CONC 34.5 g/dL (32.0-36.0); MEAN CORPUSCULAR VOLUME 97.4 fL (80.0-94.0); MEAN PLATELET VOLUME 9.8 fL (7.4-11.4); MONOCYTES # (AUTO) 0.6 10^3/uL (0.0-1.0); NEUTROPHILS # (AUTO) 5.5 10^3/uL (1.5-6.6); NEUTROPHILS % (AUTO) 80.4 %; PLT - PLATELET COUNT 201 10^3/uL (130-450); RED BLOOD COUNT 3.84 10^6/uL (4.70-6.10); RED CELL DISTRIBUTION WIDTH 13.2 % (12.0-15.0); WHITE BLOOD COUNT 6.9 x10^3/uL (4.8-10.8)
[2020-11-25] MEDS: LORazepam 2 MG/ML VIAL IVP PRN ×3 (10:27→19:40)
[2020-11-25] MEDS ORDERED: CARBOXYMETHYLCELLULOSE OPHTH DROPS EACHEYE PRN (11:33)
--- NOTE | 2020-11-25 16:41 | PROVIDER PROGRESS NOTE ---
Assessment/Plan - Problem List (1) Alcohol withdrawal Assessment/Plan: He is scoring high on the CIWA protocol today, now that he has woken up from his benzodiazepine overdose Will order IV Ativan on CIWA Vital signs otherwise are stable so he can be transferred out of ICU status to [facility] on telemetry (2) Alcoholism Assessment/Plan: He was on 2 days of iv banana bag. We will transition over to p.o. thiamine, vitamins as his diet has, up to solids. Will give 1 alcohol beverage with dinner (3) Substance abuse Assessment/Plan: His anxiety drugs have been resumed. He is needing a CIWA protocol. 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 His gabapentin has been resumed and other meds for pain control (5) Forehead contusion Qualifiers: Encounter type: subsequent encounter Qualified Code(s): S00.83XD - Contusion of other part of head, subsequent encounter Assessment/Plan: Stable. (6) Neutropenia Assessment/Plan: Resolved, WBC today 6.9. Presumably it was caused by suppression of the bone marrow from alcohol abuse (7) Obtunded Assessment/Plan: Resolved (8) Benzodiazepine overdose Assessment/Plan: Resolved - Current Meds Current Meds: Current Medications Generic Name Dose Route Start Last Admin Trade Name Freq PRN Reason Stop Dose Admin Acetaminophen 650 mg 11/23/20 21:35 11/25/20 06:03 Acetaminophen 325 Mg Tablet PO 650 mg Q6HR PRN Administration Pain or Fever > 38C (100.4F) Lipase/Protease/Amylase 1 cap 11/24/20 17:00 11/25/20 11:37 Lipase/Protease/Amylase Capsule PO 1 cap TIDWM ROSIE Administration Cholecalciferol 25 mcg 11/25/20 09:00 11/25/20 09:12 Cholecalciferol 25 Mcg Tablet PO 25 mcg DAILY ROSIE Administration Cyanocobalamin 1,000 mcg 11/25/20 09:00 11/25/20 09:12 Cyanocobalamin 500 Mcg Tablet PO 1,000 mcg DAILY ROSIE Administration Doxepin HCl 25 mg 11/24/20 21:00 11/24/20 20:55 Doxepin 25 Mg Capsule PO 25 mg QPM ROSIE Administration Famotidine 20 mg 11/23/20 21:00 11/25/20 06:38 Famotidine 20 Mg/2 Ml Vial IVP 20 mg BID ROSIE Administration Folic Acid 1 mg 11/25/20 09:00 11/25/20 09:12 Folic Acid 1 Mg Tablet PO 1 mg DAILY ROSIE Administration Gabapentin 800 mg 11/24/20 22:00 11/25/20 13:24 Gabapentin 400 Mg Capsule PO 800 mg TID ROSIE Administration Ketorolac Tromethamine 30 mg 11/23/20 21:36 11/25/20 07:52 Ketorolac 30 Mg/Ml Vial IVP 11/28/20 21:35 30 mg Q6HR PRN Administration PAIN Lactulose 30 gm 11/24/20 22:00 11/25/20 11:37 Lactulose 10 Gm /15 Ml Udc PO 30 gm TID ROSIE Administration Lorazepam 1 mg 11/24/20 16:00 11/25/20 07:43 Lorazepam 1 Mg Tablet PO 1 mg TID PRN Administration ANXIETY Lorazepam 2 mg 11/25/20 09:02 11/25/20 13:23 Lorazepam 2 Mg/Ml Vial IVP 2 mg Q30M PRN Administration CIWA >8 Protocol Midodrine 5 mg 11/24/20 17:00 11/25/20 16:11 Midodrine 2.5 Mg Tablet PO Not Given TIDWM ROSIE Pantoprazole Sodium 40 mg 11/25/20 09:00 11/25/20 06:38 Pantoprazole 40 Mg Tablet PO 40 mg DAILY ROSIE Administration Multivit/Folic Acid/Iron 1 tab 11/25/20 08:00 11/25/20 07:43 Vitamin Tablet PO 1 tab DAILYWM ROSIE Administration Quetiapine Fumarate 50 mg 11/25/20 09:00 11/25/20 09:12 Quetiapine 25 Mg Tablet PO 50 mg DAILY ROSIE Administration Sodium Chloride 10 ml 11/23/20 17:00 11/25/20 07:43 Sodium Chloride Flush 0.9% 10 Ml Syringe IVP 10 ml 0100,0900,1700 ROSIE Administration Sodium Chloride 10 ml 11/23/20 16:42 11/25/20 06:38 Sodium Chloride Flush 0.9% 10 Ml Syringe IVP 10 ml PRN PRN Administration NEEDED PER PROVIDER ORDERS Thiamine HCl 100 mg 11/25/20 09:00 11/25/20 09:12 Thiamine 100 Mg Tablet PO 100 mg DAILY ROSIE Administration Tramadol HCl 100 mg 11/24/20 16:00 11/24/20 20:54 Tramadol 50 Mg Tablet PO 100 mg QPM PRN Administration PER PHYSICIAN ORDER - Lab Result Fish Bone Diagrams: 11/25/20 10:22 11/25/20 04:52 - Additional Planning My Orders: My Active Orders 11/24/20 16:00 LORazepam [Ativan] 1 mg PO TID PRN traMADol [Ultram] 100 mg PO QPM PRN 11/24/20 Dinner DIET [Soft Mechanical Diet] [DIET] 11/24/20 17:00 Lipase/Protease/Amylase [Pancrelipase Dr 5,000/17,000/27,000 Chcf] 1 cap PO TIDWM Midodrine [ProAmatine] 5 mg PO TIDWM 11/24/20 21:00 Doxepin [SINEquan] 25 mg PO QPM 11/24/20 22:00 Gabapentin [Neurontin] 800 mg PO TID Lactulose [Enulose] 30 gm PO TID 11/25/20 08:00 Vitamin [Trinatal Rx 1] 1 tab PO DAILYWM 11/25/20 09:00 Cholecalciferol [Vitamin D3] 25 mcg PO DAILY Cyanocobalamin [Vitamin B-12] 1,000 mcg PO DAILY Folic Acid 1 mg PO DAILY Pantoprazole [Protonix] 40 mg PO DAILY QUEtiapine [SEROquel] 50 mg PO DAILY Thiamine [Vitamin B-1] 100 mg PO DAILY 11/25/20 09:02 LORazepam INJ [Ativan Inj (Vial)] 2 mg IVP Q30M PRN 11/25/20 11:33 Carboxymethylcellulose 1% Opht [Refresh 1% Ophth Drops] 1 drops EACHEYE PRN PRN 11/25/20 12:08 Paez Discontinuation [RC] ONCE 11/25/20 18:00 Liquor 50 ml PO 1800 11/26/20 05:00 CBC - COMP BLD CT W/AUTO DIFF [HEME] DAILYLAB Subjective - Subjective Patient Reports: Feeling Better Objective Vital Signs: Vital Signs - 24 hr 11/24/20 11/24/20 11/24/20 17:00 18:15 20:00 Temperature 36.9 C 36.5 C Heart Rate [ 55 L 63 49 L Monitoring electrodes] Respiratory 16 20 11 L Rate Blood Pressure 129/91 H 144/95 H 125/91 H [Left Brachial artery] O2 Saturation 98 100 99 11/24/20 11/25/20 11/25/20 22:00 00:07 02:52 Temperature 36.5 C Heart Rate [ 50 L 57 L 52 L Monitoring electrodes] Respiratory 10 L 11 L 10 L Rate Blood Pressure 121/83 H 107/79 109/82 H [Left Brachial artery] O2 Saturation 98 95 93 11/25/20 11/25/20 11/25/20 04:00 06:00 08:02 Temperature 36.5 C 37.1 C Heart Rate [ 50 L 46 L 66 Monitoring electrodes] Respiratory 10 L 12 14 Rate Blood Pressure 124/87 H 137/91 H 142/95 H [Left Brachial artery] O2 Saturation 96 95 100 11/25/20 11/25/20 11:41 16:10 Temperature 36.7 C 36.7 C Heart Rate [ 84 85 Monitoring electrodes] Respiratory 16 18 Rate Blood Pressure 111/82 H 121/85 H [Left Brachial artery] O2 Saturation 100 98 Oxygen O2 Source Room air I&O (Last 24 Hrs): Intake and Output Totals x24h 11/23/20 11/24/20 11/25/20 23:59 23:59 23:59 Intake Total 2110.000 6021.200 2247 Output Total 2020 671 1320 Balance 90.000 5350.200 927 General: Alert, Oriented x3 HEENT: Mucous membr. moist/pink Neck: Supple - Results Results: Laboratory Results WBC 6.9 x10^3/uL (4.8-10.8) 11/25/20 10:22 RBC 3.84 10^6/uL (4.70-6.10) L 11/25/20 10:22 Hgb 12.9 g/dL (14.0-18.0) L 11/25/20 10:22 Hct 37.4 % (42.0-52.0) L 11/25/20 10:22 MCV 97.4 fL (80.0-94.0) H 11/25/20 10:22 MCH 33.6 pg (27.0-31.0) H 11/25/20 10:22 MCHC 34.5 g/dL (32.0-36.0) 11/25/20 10:22 RDW 13.2 % (12.0-15.0) 11/25/20 10:22 Plt Count 201 10^3/uL (130-450) 11/25/20 10:22 MPV 9.8 fL (7.4-11.4) 11/25/20 10:22 Neut # (Auto) 5.5 10^3/uL (1.5-6.6) 11/25/20 10:22 Lymph # (Auto) 0.5 10^3/uL (1.5-3.5) L 11/25/20 10:22 [place] # (Auto) 0.6 10^3/uL (0.0-1.0) 11/25/20 10:22 Eos # (Auto) 0.2 10^3/uL (0.0-0.7) 11/25/20 10:22 Baso # (Auto) 0.0 10^3/uL (0.0-0.1) 11/25/20 10:22 Absolute Nucleated RBC 0.00 x10^3/uL 11/25/20 10:22 Nucleated RBC % 0.0 /100WBC 11/25/20 10:22 PT 12.0 secs (9.9-12.6) 11/23/20 17:25 INR 1.1 (0.8-1.2) 11/23/20 17:25 Bld Gas Analysis Time 1724 11/23/20 17:15 Sample Site RIGHT BRACHIAL 11/23/20 17:15 ABG pH 7.53 (7.35-7.45) H 11/23/20 17:15 ABG pCO2 29 mmHg (34-45) L 11/23/20 17:15 ABG pO2 103 mmHg (80-100) H 11/23/20 17:15 ABG HCO3 23.7 mmol/L (22.0-26.0) 11/23/20 17:15 ABG Total CO2 24.6 MMOL/L (21.0-29.0) 11/23/20 17:15 ABG O2 Saturation 98 % (94-98) 11/23/20 17:15 ABG Base Excess 2.0 mmol/L (-2.0-3.0) 11/23/20 17:15 Arian Test NOT APPLICABLE 11/23/20 17:15 O2 Delivery Device NASAL CANNULA 11/23/20 17:15 O2 Liters/Min 1.50 LPM 11/23/20 17:15 Sodium 141 mmol/L (135-145) 11/25/20 04:52 Potassium 3.9 mmol/L (3.5-5.0) 11/25/20 04:52 Chloride 109 mmol/L (101-111) 11/25/20 04:52 Carbon Dioxide 23 mmol/L (21-32) 11/25/20 04:52 Anion Gap 9.0 (6-13) 11/25/20 04:52 BUN 17 mg/dL (6-20) 11/25/20 04:52 Creatinine 1.0 mg/dL (0.6-1.2) 11/25/20 04:52 Estimated GFR (MDRD) 77 (>89) L 11/25/20 04:52 Glucose 100 mg/dL (70-100) 11/25/20 04:52 Calcium 9.2 mg/dL (8.5-10.3) 11/25/20 04:52 Phosphorus 3.9 mg/dL (2.5-4.6) 11/24/20 04:53 Magnesium 1.8 mg/dL (1.7-2.8) 11/24/20 04:53 Total Bilirubin 1.0 mg/dL (0.2-1.0) 11/25/20 04:52 GGT 44 IU/L (8-55) 11/24/20 04:53 AST 21 IU/L (10-42) 11/25/20 04:52 ALT 13 IU/L (10-60) 11/25/20 04:52 Alkaline Phosphatase 68 IU/L (42-121) 11/25/20 04:52 Ammonia 28.9 umol/L (7-35) 11/24/20 04:53 Total Protein 6.4 g/dL (6.7-8.2) L 11/25/20 04:52 Albumin 3.7 g/dL (3.2-5.5) 11/25/20 04:52 Globulin 2.7 g/dL (2.1-4.2) 11/25/20 04:52 Albumin/Globulin Ratio 1.4 (1.0-2.2) 11/25/20 04:52 Lipase 18 U/L (22-51) L 11/23/20 15:11 TSH 2.94 uIU/mL (0.34-5.60) 11/23/20 15:11 Urine Color YELLOW 11/23/20 15:52 Urine Clarity CLEAR (CLEAR) 11/23/20 15:52 Urine pH 7.0 PH (5.0-7.5) 11/23/20 15:52 Ur Specific [place] 1.010 (1.002-1.030) 11/23/20 15:52 Urine Protein NEGATIVE mg/dL (NEGATIVE) 11/23/20 15:52 Urine Glucose (UA) NEGATIVE mg/dL (NEGATIVE) 11/23/20 15:52 Urine Ketones NEGATIVE mg/dL (NEGATIVE) 11/23/20 15:52 Urine Occult Blood NEGATIVE (NEGATIVE) 11/23/20 15:52 Urine Nitrite NEGATIVE (NEGATIVE) 11/23/20 15:52 Urine Bilirubin NEGATIVE (NEGATIVE) 11/23/20 15:52 Urine Urobilinogen 0.2 (NORMAL) E.U./dL (NORMAL) 11/23/20 15:52 Ur Leukocyte Esterase NEGATIVE (NEGATIVE) 11/23/20 15:52 Ur Microscopic Review NOT INDICATED 11/23/20 15:52 Urine Culture Comments NOT INDICATED 11/23/20 15:52 Nasal Adenovirus (PCR) NOT DETECTED 11/23/20 16:10 Nasal B. parapertussis DNA (PCR) NOT DETECTED 11/23/20 16:10 Nasal Coronavir 229E PCR NOT DETECTED 11/23/20 16:10 Nasal Coronavir HKU1 PCR NOT DETECTED 11/23/20 16:10 Nasal Coronavir NL63 PCR NOT DETECTED 11/23/20 16:10 Nasal Coronavir OC43 PCR NOT DETECTED 11/23/20 16:10 Nasal Enterovir/Rhinovir PCR NOT DETECTED 11/23/20 16:10 Nasal Influenza B PCR NOT DETECTED 11/23/20 16:10 Nasal Influenza A PCR NOT DETECTED 11/23/20 16:10 Nasal Parainfluen 1 PCR NOT DETECTED 11/23/20 16:10 Nasal Parainfluen 2 PCR NOT DETECTED 11/23/20 16:10 Nasal Parainfluen 3 PCR NOT DETECTED 11/23/20 16:10 Nasal Parainfluen 4 PCR NOT DETECTED 11/23/20 16:10 Nasal RSV (PCR) NOT DETECTED 11/23/20 16:10 Nasal Screen MRSA (PCR) NEGATIVE (NEGATIVE) 11/23/20 17:40 Nasal B.pertussis DNA PCR NOT DETECTED 11/23/20 16:10 Nasal C.pneumoniae (PCR) NOT DETECTED 11/23/20 16:10 Lito Human Metapneumo PCR NOT DETECTED 11/23/20 16:10 Nasal M.pneumoniae (PCR) NOT DETECTED 11/23/20 16:10 Nasal SARS-CoV-2 (PCR) NOT DETECTED 11/23/20 16:10 Salicylates < 6.0 mg/dL 11/23/20 15:11 Urine Opiates Screen NEGATIVE (NEGATIVE) 11/23/20 15:52 Ur Oxycodone Screen NEGATIVE (NEGATIVE) 11/23/20 15:52 Urine Methadone Screen NEGATIVE (NEGATIVE) 11/23/20 15:52 Ur Propoxyphene Screen NEGATIVE (NEGATIVE) 11/23/20 15:52 Acetaminophen < 10 ug/mL (10-30) L 11/23/20 15:11 Ur Barbiturates Screen NEGATIVE (NEGATIVE) 11/23/20 15:52 Ur Tricyclics Screen POSITIVE (NEGATIVE) H 11/23/20 15:52 Ur Phencyclidine Scrn NEGATIVE (NEGATIVE) 11/23/20 15:52 Ur Amphetamine Screen NEGATIVE (NEGATIVE) 11/23/20 15:52 U Methamphetamines Scrn NEGATIVE (NEGATIVE) 11/23/20 15:52 U Benzodiazepines Scrn POSITIVE (NEGATIVE) H 11/23/20 15:52 Urine Cocaine Screen NEGATIVE (NEGATIVE) 11/23/20 15:52 U Cannabinoids Screen POSITIVE (NEGATIVE) H 11/23/20 15:52 Ethyl Alcohol 146.3 mg/dL 11/23/20 15:11 - Procedures Procedures: Procedures INSERTION OF INFUSION DEVICE INTO R ATRIUM, PERC APPROACH (08/19/19) INSPECTION OF LOWER INTESTINAL TRACT, ENDO (01/25/18) ULTRASONOGRAPHY OF SUPERIOR VENA CAVA, GUIDANCE (08/19/19)
[2020-11-25] MEDS: LIQUOR 50 ML BOTTLE PO SCH (17:28)
[2020-11-25] MEDS ORDERED: LIQUOR 50 ML BOTTLE PO SCH ×2 (18:00)
[2020-11-25] MEDS: traMADol 50 MG TABLET PO PRN (21:11)
[2020-11-25] MEDS: DOXEPIN 25 MG CAPSULE PO SCH (21:11)
[2020-11-26] MEDS: KETOROLAC 30 MG/ML VIAL IVP PRN ×4 (01:58→21:21)
[2020-11-26 05:17] LABS: BASOPHILS % (AUTO) 0.4 %; EOSINOPHILS # (AUTO) 0.4 10^3/uL (0.0-0.7); EOSINOPHILS % (AUTO) 7.2 %; HCT - HEMATOCRIT 33.3 % (42.0-52.0); HGB - HEMOGLOBIN 11.2 g/dL (14.0-18.0); LYMPHOCYTES % (AUTO) 20.2 %; MEAN CORPUSCULAR HEMOGLOBIN 33.6 pg (27.0-31.0); MEAN CORPUSCULAR HGB CONC 33.6 g/dL (32.0-36.0); MEAN PLATELET VOLUME 9.7 fL (7.4-11.4); MONOCYTES # (AUTO) 0.6 10^3/uL (0.0-1.0); MONOCYTES % (AUTO) 11.4 %; NEUTROPHILS # (AUTO) 2.9 10^3/uL (1.5-6.6); NEUTROPHILS % (AUTO) 60.6 %; PLT - PLATELET COUNT 168 10^3/uL (130-450); RED BLOOD COUNT 3.33 10^6/uL (4.70-6.10); RED CELL DISTRIBUTION WIDTH 13.2 % (12.0-15.0); WHITE BLOOD COUNT 4.8 x10^3/uL (4.8-10.8)
[2020-11-26] MEDS: LORazepam 2 MG/ML VIAL IVP PRN ×6 (05:34→22:02)
[2020-11-26] MEDS: SODIUM CHLORIDE FLUSH 0.9% 10 ML SYRINGE IVP PRN ×3 (05:35→22:03)
[2020-11-26] MEDS: LACTULOSE 10 GM /15 ML UDC PO SCH ×3 (05:42→21:08)
[2020-11-26] MEDS: GABAPENTIN 400 MG CAPSULE PO SCH ×3 (06:53→21:08)
[2020-11-26] MEDS: CHOLECALCIFEROL 25 MCG TABLET PO SCH (09:05)
[2020-11-26] MEDS: FAMOTIDINE 20 MG/2 ML VIAL IVP SCH ×2 (09:05→21:09)
[2020-11-26] MEDS: MIDODRINE 2.5 MG TABLET PO SCH ×4 (09:05→16:39)
[2020-11-26] MEDS: QUEtiapine 25 MG TABLET PO SCH (09:05)
[2020-11-26] MEDS: LIPASE/PROTEASE/AMYLASE CAPSULE PO SCH ×3 (09:05→16:39)
[2020-11-26] MEDS: PRENATAL VITAMIN TABLET PO SCH (09:06)
[2020-11-26] MEDS: SODIUM CHLORIDE FLUSH 0.9% 10 ML SYRINGE IVP SCH ×2 (09:06→15:33)
[2020-11-26] MEDS: CYANOCOBALAMIN 500 MCG TABLET PO SCH (09:06)
[2020-11-26] MEDS: PANTOPRAZOLE 40 MG TABLET PO SCH (09:06)
[2020-11-26] MEDS: FOLIC ACID 1 MG TABLET PO SCH (09:06)
[2020-11-26] MEDS: THIAMINE 100 MG TABLET PO SCH (09:06)
[2020-11-26] MEDS: LORazepam 1 MG TABLET PO PRN (10:38)
[2020-11-26] MEDS: FUROSEMIDE 40 MG TABLET PO SCH (11:32)
[2020-11-26] MEDS ORDERED: LORazepam 1 MG TABLET PO STA (13:22)
--- NOTE | 2020-11-26 13:50 | CONSULTATION NOTE ---
Consultation Report: Consulted by hospitalist for difficult IV placement. #20G IV placed to the right basilic vein under ultrasound guidance. Flushed with ease. Patient tolerated well.
[2020-11-26] MEDS ORDERED: SENNA 8.6 MG TABLET PO PRN (16:49)
[2020-11-26] MEDS ORDERED: DOCUSATE SODIUM 250 MG CAPSULE PO PRN (16:49)
[2020-11-26] MEDS: ACETAMINOPHEN 325 MG TABLET PO PRN ×2 (17:16→21:21)
[2020-11-26] MEDS: LIQUOR 50 ML BOTTLE PO SCH (17:54)
[2020-11-26] MEDS: DOXEPIN 25 MG CAPSULE PO SCH (21:08)
[2020-11-26] MEDS: traMADol 50 MG TABLET PO PRN (22:45)
[2020-11-27] MEDS: SODIUM CHLORIDE FLUSH 0.9% 10 ML SYRINGE IVP SCH ×4 (00:23→17:35)
[2020-11-27] MEDS: LORazepam 2 MG/ML VIAL IVP PRN (00:36)
[2020-11-27] MEDS: LACTULOSE 10 GM /15 ML UDC PO SCH ×2 (06:18→14:43)
[2020-11-27] MEDS: GABAPENTIN 400 MG CAPSULE PO SCH ×2 (06:18→14:43)
[2020-11-27] MEDS: SODIUM CHLORIDE FLUSH 0.9% 10 ML SYRINGE IVP PRN (06:36)
[2020-11-27] MEDS: LORazepam 1 MG TABLET PO PRN ×2 (06:36→15:04)
[2020-11-27] MEDS: KETOROLAC 30 MG/ML VIAL IVP PRN ×2 (06:36→14:44)
[2020-11-27 07:02] LABS: BASOPHILS % (AUTO) 0.3 %; EOSINOPHILS # (AUTO) 0.4 10^3/uL (0.0-0.7); EOSINOPHILS % (AUTO) 6.1 %; HCT - HEMATOCRIT 38.6 % (42.0-52.0); LYMPHOCYTES # (AUTO) 1.3 10^3/uL (1.5-3.5); LYMPHOCYTES % (AUTO) 21.8 %; MEAN CORPUSCULAR HEMOGLOBIN 33.1 pg (27.0-31.0); MEAN CORPUSCULAR HGB CONC 33.7 g/dL (32.0-36.0); MEAN CORPUSCULAR VOLUME 98.2 fL (80.0-94.0); MEAN PLATELET VOLUME 9.9 fL (7.4-11.4); MONOCYTES # (AUTO) 0.4 10^3/uL (0.0-1.0); MONOCYTES % (AUTO) 7.3 %; NEUTROPHILS # (AUTO) 3.8 10^3/uL (1.5-6.6); NEUTROPHILS % (AUTO) 64.3 %; PLT - PLATELET COUNT 192 10^3/uL (130-450); RED BLOOD COUNT 3.93 10^6/uL (4.70-6.10); RED CELL DISTRIBUTION WIDTH 13.1 % (12.0-15.0); WHITE BLOOD COUNT 5.9 x10^3/uL (4.8-10.8)
[2020-11-27 07:10] LABS: POTASSIUM 3.9 mmol/L (3.5-5.0)
[2020-11-27] MEDS: FOLIC ACID 1 MG TABLET PO SCH (08:28)
[2020-11-27] MEDS: PRENATAL VITAMIN TABLET PO SCH (08:28)
[2020-11-27] MEDS: LIPASE/PROTEASE/AMYLASE CAPSULE PO SCH ×3 (08:28→17:35)
[2020-11-27] MEDS: CHOLECALCIFEROL 25 MCG TABLET PO SCH (08:28)
[2020-11-27] MEDS: PANTOPRAZOLE 40 MG TABLET PO SCH (08:28)
[2020-11-27] MEDS: QUEtiapine 25 MG TABLET PO SCH (08:28)
[2020-11-27] MEDS: FUROSEMIDE 40 MG TABLET PO SCH (08:29)
[2020-11-27] MEDS: CYANOCOBALAMIN 500 MCG TABLET PO SCH (08:29)
[2020-11-27] MEDS: THIAMINE 100 MG TABLET PO SCH (08:29)
[2020-11-27] MEDS: FAMOTIDINE 20 MG/2 ML VIAL IVP SCH (08:29)
[2020-11-27] MEDS: MIDODRINE 2.5 MG TABLET PO SCH ×3 (08:32→17:29)
[2020-11-27] MEDS ORDERED: LORazepam 0.5 MG TABLET PO SCH (11:00)
[2020-11-27] MEDS: ACETAMINOPHEN 325 MG TABLET PO PRN ×2 (11:25→17:35)
--- NOTE | 2020-11-27 14:42 | PROVIDER PROGRESS NOTE ---
Assessment/Plan - Problem List (1) Alcohol withdrawal Assessment/Plan: He is still scoring 10 or more on CIWA protocol and needs iv Ativan. Not ready for [facility] yet today (2) Alcoholism Assessment/Plan: Off iv Banana bag. Getting oral Thiamine and oral vitamins. (3) Substance abuse Assessment/Plan: We discussed his goals, he sounded honest, wants to stop, but "has no will power". SW for further input will be appreciated. 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 - Current Meds Current Meds: Current Medications Generic Name Dose Route Start Last Admin Trade Name Freq PRN Reason Stop Dose Admin Acetaminophen 650 mg 11/23/20 21:35 11/27/20 11:25 Acetaminophen 325 Mg Tablet PO 650 mg Q6HR PRN Administration Pain or Fever > 38C (100.4F) Alcohol 50 ml 11/25/20 18:00 11/26/20 17:54 Liquor 50 Ml Bottle PO 50 ml 1800 ROSIE Administration Lipase/Protease/Amylase 1 cap 11/24/20 17:00 11/27/20 11:16 Lipase/Protease/Amylase Capsule PO 1 cap TIDWM ROSIE Administration Carboxymethylcellulose 1 drops 11/25/20 11:33 11/27/20 11:26 Carboxymethylcellulose Ophth Drops EACHEYE 1 drops PRN PRN Administration Dry Eye Cholecalciferol 25 mcg 11/25/20 09:00 11/27/20 08:28 Cholecalciferol 25 Mcg Tablet PO 25 mcg DAILY ROSIE Administration Cyanocobalamin 1,000 mcg 11/25/20 09:00 11/27/20 08:29 Cyanocobalamin 500 Mcg Tablet PO 1,000 mcg DAILY ROSIE Administration Doxepin HCl 25 mg 11/24/20 21:00 11/26/20 21:08 Doxepin 25 Mg Capsule PO 25 mg QPM ROSIE Administration Folic Acid 1 mg 11/25/20 09:00 11/27/20 08:28 Folic Acid 1 Mg Tablet PO 1 mg DAILY ROSIE Administration Furosemide 40 mg 11/26/20 11:00 11/27/20 08:29 Furosemide 40 Mg Tablet PO 40 mg DAILY ROSIE Administration Gabapentin 800 mg 11/24/20 22:00 11/27/20 06:18 Gabapentin 400 Mg Capsule PO 800 mg TID ROSIE Administration Ketorolac Tromethamine 30 mg 11/23/20 21:36 11/27/20 06:36 Ketorolac 30 Mg/Ml Vial IVP 11/28/20 21:35 30 mg Q6HR PRN Administration PAIN Lactulose 30 gm 11/24/20 22:00 11/27/20 06:18 Lactulose 10 Gm /15 Ml Udc PO 30 gm TID ROSIE Administration Lorazepam 1 mg 11/24/20 16:00 11/27/20 06:36 Lorazepam 1 Mg Tablet PO 1 mg TID PRN Administration ANXIETY Lorazepam 1 mg 11/26/20 10:57 11/27/20 00:36 Lorazepam 2 Mg/Ml Vial IVP 1 mg Q30M PRN Administration CIWA >8 Protocol Midodrine 5 mg 11/24/20 17:00 11/27/20 11:16 Midodrine 2.5 Mg Tablet PO Not Given TIDWM ROSIE Pantoprazole Sodium 40 mg 11/25/20 09:00 11/27/20 08:28 Pantoprazole 40 Mg Tablet PO 40 mg DAILY ROSIE Administration Multivit/Folic Acid/Iron 1 tab 11/25/20 08:00 11/27/20 08:28 Vitamin Tablet PO 1 tab DAILYWM ROSIE Administration Quetiapine Fumarate 50 mg 11/25/20 09:00 11/27/20 08:28 Quetiapine 25 Mg Tablet PO 50 mg DAILY ROSIE Administration Sodium Chloride 10 ml 11/23/20 17:00 11/27/20 08:50 Sodium Chloride Flush 0.9% 10 Ml Syringe IVP 10 ml 0100,0900,1700 ROSIE Administration Sodium Chloride 10 ml 11/23/20 16:42 11/27/20 06:36 Sodium Chloride Flush 0.9% 10 Ml Syringe IVP 10 ml PRN PRN Administration NEEDED PER PROVIDER ORDERS Thiamine HCl 100 mg 11/25/20 09:00 11/27/20 08:29 Thiamine 100 Mg Tablet PO 100 mg DAILY ROSIE Administration Tramadol HCl 100 mg 11/24/20 16:00 11/26/20 22:45 Tramadol 50 Mg Tablet PO 100 mg QPM PRN Administration PER PHYSICIAN ORDER - Lab Result Fish Bone Diagrams: 11/27/20 06:53 11/27/20 06:53 - Additional Planning My Orders: My Active Orders 11/26/20 16:49 Docusate Sodium 250Mg Capsule [Colace 250Mg Capsule] 250 - 500 mg PO DAILY PRN Senna [Senokot] 8.6 - 17.2 mg PO DAILY PRN 11/27/20 21:00 Famotidine [Pepcid] 20 mg PO BID Subjective - Subjective Patient Reports: Feeling Better, Resting Comfortably Nursing Reports: Other (CIWA was 10 at mid-day. IV came out and he could not get iv Ativan. IV needed restart by Anesthesia, and by then he was scoring 15 on CIWA.) Objective Vital Signs: Vital Signs - 24 hr 11/26/20 11/26/20 11/27/20 17:00 21:00 00:29 Temperature 37.1 C 36.5 C 36.6 C Heart Rate [ 75 82 68 Radial] Respiratory 18 16 18 Rate Blood Pressure 151/96 H 123/82 H 132/92 H [Left Brachial artery] O2 Saturation 98 99 99 11/27/20 11/27/20 11/27/20 01:41 06:00 08:19 Temperature 36.4 C L 36.4 C L 36.4 C L Heart Rate [ 75 63 57 L Radial] Respiratory 20 20 18 Rate Blood Pressure 144/92 H 135/95 H 143/99 H [Left Brachial artery] O2 Saturation 98 98 99 11/27/20 11:21 Temperature 36.4 C L Heart Rate [ 72 Radial] Respiratory 16 Rate Blood Pressure 127/91 H [Left Brachial artery] O2 Saturation 99 Oxygen O2 Source Room air I&O (Last 24 Hrs): Intake and Output Totals x24h 11/25/20 11/26/20 11/27/20 23:59 23:59 23:59 Intake Total 3387 1410 1880 Output Total 1320 1500 Balance 2066 - 1880 General: Alert, Oriented x3 HEENT: Mucous membr. moist/pink, Other (Fine jaw tremor) Neck: Supple, No JVD Neuro: Alert, Other (Jaw and hand tremors seen) Cardiovascular: Regular rate Respiratory: No respiratory distress Extremities: No edema, Other (1+ pedal edema) - Results Results: Laboratory Results WBC 5.9 x10^3/uL (4.8-10.8) 11/27/20 06:53 RBC 3.93 10^6/uL (4.70-6.10) L 11/27/20 06:53 Hgb 13.0 g/dL (14.0-18.0) L 11/27/20 06:53 Hct 38.6 % (42.0-52.0) L 11/27/20 06:53 MCV 98.2 fL (80.0-94.0) H 11/27/20 06:53 MCH 33.1 pg (27.0-31.0) H 11/27/20 06:53 MCHC 33.7 g/dL (32.0-36.0) 11/27/20 06:53 RDW 13.1 % (12.0-15.0) 11/27/20 06:53 Plt Count 192 10^3/uL (130-450) 11/27/20 06:53 MPV 9.9 fL (7.4-11.4) 11/27/20 06:53 Neut # (Auto) 3.8 10^3/uL (1.5-6.6) 11/27/20 06:53 Lymph # (Auto) 1.3 10^3/uL (1.5-3.5) L 11/27/20 06:53 [place] # (Auto) 0.4 10^3/uL (0.0-1.0) 11/27/20 06:53 Eos # (Auto) 0.4 10^3/uL (0.0-0.7) 11/27/20 06:53 Baso # (Auto) 0.0 10^3/uL (0.0-0.1) 11/27/20 06:53 Absolute Nucleated RBC 0.00 x10^3/uL 11/27/20 06:53 Nucleated RBC % 0.0 /100WBC 11/27/20 06:53 PT 12.0 secs (9.9-12.6) 11/23/20 17:25 INR 1.1 (0.8-1.2) 11/23/20 17:25 Bld Gas Analysis Time 1724 11/23/20 17:15 Sample Site RIGHT BRACHIAL 11/23/20 17:15 ABG pH 7.53 (7.35-7.45) H 11/23/20 17:15 ABG pCO2 29 mmHg (34-45) L 11/23/20 17:15 ABG pO2 103 mmHg (80-100) H 11/23/20 17:15 ABG HCO3 23.7 mmol/L (22.0-26.0) 11/23/20 17:15 ABG Total CO2 24.6 MMOL/L (21.0-29.0) 11/23/20 17:15 ABG O2 Saturation 98 % (94-98) 11/23/20 17:15 ABG Base Excess 2.0 mmol/L (-2.0-3.0) 11/23/20 17:15 Arian Test NOT APPLICABLE 11/23/20 17:15 O2 Delivery Device NASAL CANNULA 11/23/20 17:15 O2 Liters/Min 1.50 LPM 11/23/20 17:15 Sodium 137 mmol/L (135-145) 11/27/20 06:53 Potassium 3.9 mmol/L (3.5-5.0) 11/27/20 06:53 Chloride 105 mmol/L (101-111) 11/27/20 06:53 Carbon Dioxide 23 mmol/L (21-32) 11/27/20 06:53 Anion Gap 9.0 (6-13) 11/27/20 06:53 BUN 11 mg/dL (6-20) 11/27/20 06:53 Creatinine 1.0 mg/dL (0.6-1.2) 11/27/20 06:53 Estimated GFR (MDRD) 77 (>89) L 11/27/20 06:53 Glucose 102 mg/dL (70-100) H 11/27/20 06:53 Calcium 9.0 mg/dL (8.5-10.3) 11/27/20 06:53 Phosphorus 3.9 mg/dL (2.5-4.6) 11/24/20 04:53 Magnesium 1.8 mg/dL (1.7-2.8) 11/24/20 04:53 Total Bilirubin 1.0 mg/dL (0.2-1.0) 11/25/20 04:52 GGT 44 IU/L (8-55) 11/24/20 04:53 AST 21 IU/L (10-42) 11/25/20 04:52 ALT 13 IU/L (10-60) 11/25/20 04:52 Alkaline Phosphatase 68 IU/L (42-121) 11/25/20 04:52 Ammonia 28.9 umol/L (7-35) 11/24/20 04:53 Total Protein 6.4 g/dL (6.7-8.2) L 11/25/20 04:52 Albumin 3.7 g/dL (3.2-5.5) 11/25/20 04:52 Globulin 2.7 g/dL (2.1-4.2) 11/25/20 04:52 Albumin/Globulin Ratio 1.4 (1.0-2.2) 11/25/20 04:52 Lipase 18 U/L (22-51) L 11/23/20 15:11 TSH 2.94 uIU/mL (0.34-5.60) 11/23/20 15:11 Urine Color YELLOW 11/23/20 15:52 Urine Clarity CLEAR (CLEAR) 11/23/20 15:52 Urine pH 7.0 PH (5.0-7.5) 11/23/20 15:52 Ur Specific [place] 1.010 (1.002-1.030) 11/23/20 15:52 Urine Protein NEGATIVE mg/dL (NEGATIVE) 11/23/20 15:52 Urine Glucose (UA) NEGATIVE mg/dL (NEGATIVE) 11/23/20 15:52 Urine Ketones NEGATIVE mg/dL (NEGATIVE) 11/23/20 15:52 Urine Occult Blood NEGATIVE (NEGATIVE) 11/23/20 15:52 Urine Nitrite NEGATIVE (NEGATIVE) 11/23/20 15:52 Urine Bilirubin NEGATIVE (NEGATIVE) 11/23/20 15:52 Urine Urobilinogen 0.2 (NORMAL) E.U./dL (NORMAL) 11/23/20 15:52 Ur Leukocyte Esterase NEGATIVE (NEGATIVE) 11/23/20 15:52 Ur Microscopic Review NOT INDICATED 11/23/20 15:52 Urine Culture Comments NOT INDICATED 11/23/20 15:52 Nasal Adenovirus (PCR) NOT DETECTED 11/23/20 16:10 Nasal B. parapertussis DNA (PCR) NOT DETECTED 11/23/20 16:10 Nasal Coronavir 229E PCR NOT DETECTED 11/23/20 16:10 Nasal Coronavir HKU1 PCR NOT DETECTED 11/23/20 16:10 Nasal Coronavir NL63 PCR NOT DETECTED 11/23/20 16:10 Nasal Coronavir OC43 PCR NOT DETECTED 11/23/20 16:10 Nasal Enterovir/Rhinovir PCR NOT DETECTED 11/23/20 16:10 Nasal Influenza B PCR NOT DETECTED 11/23/20 16:10 Nasal Influenza A PCR NOT DETECTED 11/23/20 16:10 Nasal Parainfluen 1 PCR NOT DETECTED 11/23/20 16:10 Nasal Parainfluen 2 PCR NOT DETECTED 11/23/20 16:10 Nasal Parainfluen 3 PCR NOT DETECTED 11/23/20 16:10 Nasal Parainfluen 4 PCR NOT DETECTED 11/23/20 16:10 Nasal RSV (PCR) NOT DETECTED 11/23/20 16:10 Nasal Screen MRSA (PCR) NEGATIVE (NEGATIVE) 11/23/20 17:40 Nasal B.pertussis DNA PCR NOT DETECTED 11/23/20 16:10 Nasal C.pneumoniae (PCR) NOT DETECTED 11/23/20 16:10 Lito Human Metapneumo PCR NOT DETECTED 11/23/20 16:10 Nasal M.pneumoniae (PCR) NOT DETECTED 11/23/20 16:10 Nasal SARS-CoV-2 (PCR) NOT DETECTED 11/23/20 16:10 Salicylates < 6.0 mg/dL 11/23/20 15:11 Urine Opiates Screen NEGATIVE (NEGATIVE) 11/23/20 15:52 Ur Oxycodone Screen NEGATIVE (NEGATIVE) 11/23/20 15:52 Urine Methadone Screen NEGATIVE (NEGATIVE) 11/23/20 15:52 Ur Propoxyphene Screen NEGATIVE (NEGATIVE) 11/23/20 15:52 Acetaminophen < 10 ug/mL (10-30) L 11/23/20 15:11 Ur Barbiturates Screen NEGATIVE (NEGATIVE) 11/23/20 15:52 Ur Tricyclics Screen POSITIVE (NEGATIVE) H 11/23/20 15:52 Ur Phencyclidine Scrn NEGATIVE (NEGATIVE) 11/23/20 15:52 Ur Amphetamine Screen NEGATIVE (NEGATIVE) 11/23/20 15:52 U Methamphetamines Scrn NEGATIVE (NEGATIVE) 11/23/20 15:52 U Benzodiazepines Scrn POSITIVE (NEGATIVE) H 11/23/20 15:52 Urine Cocaine Screen NEGATIVE (NEGATIVE) 11/23/20 15:52 U Cannabinoids Screen POSITIVE (NEGATIVE) H 11/23/20 15:52 Ethyl Alcohol 146.3 mg/dL 11/23/20 15:11 - Procedures Procedures: Procedures INSERTION OF INFUSION DEVICE INTO R [facility], PERC APPROACH (08/19/19) INSPECTION OF LOWER INTESTINAL TRACT, ENDO (01/25/18) ULTRASONOGRAPHY OF SUPERIOR VENA CAVA, GUIDANCE (08/19/19)
[2020-11-27 15:51] VITALS: BP 141/91
--- NOTE | 2020-11-27 17:13 | Discharge Plan ---
Discharge Plan Problem Reviewed?: Yes Disposition: Home, Self Care Condition: Stable No Smoking: If you smoke, Please STOP! Call for help. Follow-up with: Kim Dutton DO [Primary Care Provider] -
[2020-11-27] MEDS: LIQUOR 50 ML BOTTLE PO SCH (17:49)
[2020-11-27] MEDS ORDERED: traMADol 50 MG TABLET PO SCH (17:50)
--- NOTE | 2020-11-27 19:08 | DISCHARGE SUMMARY ---
Discharge Summary Admit Date: 11/23/20 Discharge Date: 11/27/20 Discharging Provider: Andrea Siddiqi MD Primary Care Provider: Dr Kim Dutton Condition at Discharge: Stable Discharge Disposition: 01 Home, Self Care - DIAGNOSES Admission Diagnoses: Obtunded Benzodiazepine overdose Substance abuse Alcoholism Forehead contusion Peripheral neuropathy Neutropenia Discharge Diagnoses with Status of Each Condition: ObtundedResolved Benzodiazepine overdose -Resolved Substance abuse-Stable Alcoholism-Chronic, Stable Forehead contusion-Resolved Peripheral neuropathy-Stable Neutropenia-Resolved - HPI History of Present Illness: This is a 55-year-old WM with a remote Hx of Guillain-Jackson, peripheral neuropathy, and longstanding history of narcotic and sedative drug abuse, also alcohol abuse and withdrawal, fatty liver, pancreatitis, pancreatic pseudocyst, prior overdose with oxycodone and gabapentin. He has had many ED visits here related to these problems. Patient presented today obtunded and was able to say that he "fell and hit his head" and that he "took something his friend gave him". He was given Narcan by the video production specialist with awakening but fell back asleep, Narcan was repeated with improvement but again he fell asleep. While getting a CT scan of his head he received Narcan for the third time with brief improvement and again became obtunded. He is being started on Narcan drip and being admitted to the ICU. His alcohol level is 140. His urine toxicology screen shows presence of tricyclics, benzodiazepines, marijuana, but no opiates. - HOSPITAL COURSE Hospital Course: Patient was initially admitted to the ICU kept on a Narcan infusion.He stayed on Narcan for about 48 hours, and then started to have symptoms of alcohol withdrawal. He was taken out of the ICU on 11/25/2020, 2 days after admission, and started on CIWA protocol with as needed benzodiazepine use to address alcohol withdrawal. He was also started on IV banana bag followed by transitioning to p.o. thiamine, vitamins and advancing his diet. He was also given 1 alcoholic be verage with dinner to avoid unnecessary withdrawal as his reason for admission was not intentional detox. His ambulatory status improved over the next day or 2 to the day of discharge at which point he was essentially back at his baseline mental status and physical status with respect ambulation. His labs had also improved.Given resolution of the neutropenia, improvement in the anemia, no abnormal chemistry labs, and physical mental status essentially back to baseline the patient was deemed to be medically safe for discharge. He was provided resources for alcohol cessation. He was encouraged to discuss possible medication review with his PCP given that polypharmacy may have played a role. I recommended at least for now a change in gabapentin dosing from 3 times daily to twice daily. - ALLERGIES Allergies/Adverse Reactions: Allergies Allergy/AdvReac Type Severity Reaction Status Date / Time lisinopril Allergy Mild Anaphylaxis Verified 11/23/20 16:31 - MEDICATIONS Home Medications: Ambulatory Orders Medication Instructions Recorded Confirmed Furosemide [Lasix] 40 mg PO DAILY 08/19/19 11/23/20 Cholecalciferol [Vitamin D3] 1,000 units PO DAILY 01/17/20 11/24/20 Lactulose 30 gm PO TID 01/17/20 11/24/20 Multivitamin W/Minerals [Theragran 1 each PO DAILY 01/17/20 11/23/20 M] Propranolol [Inderal] 60 mg PO BID 01/17/20 11/23/20 Lipase/Protease/Amylase [Creon Dr 1 cap PO TIDWM 06/14/20 11/24/20 6,000 Units Capsule] Pantoprazole Sodium 40 mg PO DAILY 06/14/20 11/23/20 Doxepin [SINEquan] 25 mg PO QPM 11/23/20 11/24/20 Doxepin [SINEquan] 50 - 100 mg PO QPM 11/23/20 11/24/20 Gabapentin [Neurontin] 800 mg PO TID 11/23/20 11/23/20 Midodrine HCl 5 mg PO TID 11/23/20 11/23/20 QUEtiapine [SEROquel] 50 mg PO DAILY 11/23/20 11/23/20 Cyanocobalamin (Vitamin B-12) 1 tab PO DAILY 11/24/20 11/24/20 [Vitamin B-12] Folic Acid/Vit B Complex and C 1 tab PO DAILY 11/24/20 11/24/20 [B-Complex with Vit C Tablet] traMADol [Ultram] 1 - 2 tab PO QPM PRN 11/24/20 11/24/20 Docusate Sodium 250Mg Capsule 250 - 500 mg PO DAILY PRN 11/27/20 [Colace 250Mg Capsule] Famotidine [Pepcid] 20 mg PO BID tablet 11/27/20 Ketorolac Inj (30Mg) [Toradol Inj 30 mg IVP Q6HR PRN vial 11/27/20 (30Mg)] LORazepam [Ativan] 1 mg PO BID #0 11/27/20 11/23/20 Ondansetron Inj [Zofran Inj] 4 mg IVP Q6HR PRN vial 11/27/20 Senna [Senokot] 8.6 - 17.2 mg PO DAILY PRN tablet 11/27/20 Sodium Chloride Flush 0.9% [Normal 10 ml IVP 0100,0900,1700 11/27/20 Saline Flush 0.9%] Sodium Chloride Flush 0.9% [Normal 10 ml IVP PRN PRN 11/27/20 Saline Flush 0.9%] Thiamine [Vitamin B-1] 100 mg PO DAILY tablet 11/27/20 - PHYSICAL EXAM AT DISCHARGE General Appearance: positive: No acute distress Eyes Bilateral: positive: Normal inspection ENT: positive: ENT inspection nml Neck: positive: Nml inspection Respiratory: positive: Chest non-tender, No respiratory distress Cardiovascular: positive: Regular rate & rhythm, No murmur Peripheral Pulses: positive: 2+ Abdomen: positive: Non-tender, No organomegaly, Nml bowel sounds, No distention Back: positive: Nml inspection Skin: positive: Color nml Extremities: positive: Non-tender, Full ROM, Nml appearance Neurologic/Psychiatric: positive: Oriented x3, CN's nml (2-12), Motor nml, Sensation nml - LABS Result Diagrams: 11/27/20 06:53 11/27/20 06:53 - DIAGNOSTIC IMAGING Diagnostic Imaging Results: Prelim report reviewed
[2020-11-27] MEDS ORDERED: FAMOTIDINE 20 MG TABLET PO SCH (21:00)
== END 2020-11-27 18:30 | disposition home or self-care (01) | DRG 917 ==
LOC: EDUNIT# → ED 14:38 → SUPCPDRO 14:38 → ICU 16:20 → MS3 11-25 23:23
PROVIDERS: ADMIT Internal Medicine; ATTEND Family Medicine Sports Medicine
DX: F10.20 Alcohol dependence, uncomplicated (principal); T40.601A Poisoning by unspecified narcotics, accidental (unintentional), initial encounter; T50.904A Poisoning by unspecified drugs, medicaments and biological substances, undetermined, initial encounter; T42.4X1A Poisoning by benzodiazepines, accidental (unintentional), initial encounter; D61.2 Aplastic anemia due to other external agents; W19.XXXA Unspecified fall, initial encounter; Z20.822 Contact with and (suspected) exposure to COVID-19; F10.139 Alcohol abuse with withdrawal, unspecified; K86.1 Other chronic pancreatitis; T51.0X Toxic effect of ethanol; Y90.6 Blood alcohol level of 120-199 mg/100 ml; R40.0 Somnolence; F11.10 Opioid abuse, uncomplicated; E86.0 Dehydration; S00.83XA Contusion of other part of head, initial encounter; W18.30XA Fall on same level, unspecified, initial encounter; Y92.000 Kitchen of unspecified non-institutional (private) residence as the place of occurrence of the external cause; G62.2 Polyneuropathy due to other toxic agents; Z87.19 Personal history of other diseases of the digestive system; K76.0 Fatty (change of) liver, not elsewhere classified; F32.9 Major depressive disorder, single episode, unspecified; F41.9 Anxiety disorder, unspecified; F41.0 Panic disorder [episodic paroxysmal anxiety]; F40.240 Claustrophobia; I10 Essential (primary) hypertension; E78.00 Pure hypercholesterolemia, unspecified; G47.30 Sleep apnea, unspecified; K21.9 Gastro-esophageal reflux disease without esophagitis; R32 Unspecified urinary incontinence; M19.90 Unspecified osteoarthritis, unspecified site; Z72.89 Other problems related to lifestyle; Z79.899 Other long term (current) drug therapy; Z86.69 Personal history of other diseases of the nervous system and sense organs; Z87.891 Personal history of nicotine dependence
CPT/HCPCS: 36415; 36600; 51702; 70450; 72125; 80048; 80053; 80306; 80307; 81003; 82140; 82803; 82977; 83690; 83735; 84100; 84443; 85025; 85610; 87150; 87631; 93005; 96361; 96374; 96376; 99285; A9270; G0480; J2060; J3411; J8499; 0202U; 80320; 80329; 81001; 87086

== ENCOUNTER 2020-12-08 07:20 | Outpatient (CLI) | payer MEDICARE, MEDICAID | END 2020-12-08 07:21 | disposition critical access hospital (66) | LOC: EMS 07:20 | DX: R07.89 Other chest pain (principal); R11.2 Nausea with vomiting, unspecified | CPT/HCPCS: A0425; A0427 ==

== ENCOUNTER 2020-12-08 23:13 | Outpatient (CLI) | payer MEDICARE, MEDICAID | END 2020-12-08 23:14 | disposition home or self-care (01) | LOC: EMS 23:13 | DX: R11.0 Nausea (principal); R45.89 Other symptoms and signs involving emotional state | CPT/HCPCS: A0425; A0427 ==

== ENCOUNTER 2020-12-08 23:33 | Emergency (ER) | payer MEDICARE, MEDICAID ==
--- NOTE | 2020-12-09 01:23 | ED Physician Documentation ---
PD HPI CHEST PAIN - Stated complaint Stated Complaint: ABD PAIN/CP - Chief complaint Chief Complaint: General - History obtained from History obtained from: Patient - History of Present Illness Timing - onset: Today Timing - details: Abrupt onset (has been having intermittent chest and abd pains for 1-2 weeks. Had had eposide of unresponsive from alcohol and bystadners did CPR briefly about 10 days ago. With some chest pains since. Had CXR done that was normal. Still hurts and worse today. Also upper abd pain s/p drinking heavily, recurrent.) Quality: Aching, Sharp, Pain Location: Substernal, Left chest, Right chest Radiation: Back. No: Jaw, Neck Improved by: Rest Worsened by: Inspiration, Movement, Palpation Associated symptoms: Shortness of air. No: Nausea, Vomiting, Feeling faint / dizzy, Palpitations Similar symptoms before: Diagnosis (chest wall contusion and prior costchondritis) Recently seen: Emergency Dept (yesterday with CXR and labs.) Review of Systems Constitutional: denies: Fever, Chills Nose: denies: Rhinorrhea / runny nose, Congestion Throat: denies: Sore throat Cardiac: reports: Chest pain / pressure. denies: Palpitations, Calf pain Respiratory: denies: Cough, Wheezing GI: reports: Abdominal Pain, Nausea. denies: Vomiting, Diarrhea, Bloody / black stool Skin: denies: Rash Neurologic: reports: Generalized weakness, Altered mental status (when intoxicated, which is often.) Immunocompromised: denies: Immunocompromised PD PAST MEDICAL HISTORY - Past Medical History Past Medical History: Yes Cardiovascular: Hypertension, High cholesterol Respiratory: Sleep apnea, CPAP use Neuro: Headaches, Other Endocrine/Autoimmune: None, Other GI: GERD, Pancreatitis, Cirrhosis : Incontinence HEENT: None Psych: Depression, Anxiety, Panic attacks, Claustrophobia Musculoskeletal: Osteoarthritis Derm: None - Past Surgical History Past Surgical History: Yes Ortho: Hip replacement, Arthroscopic surgery HEENT: Tracheostomy - Present Medications Home Medications: Ambulatory Orders Medication Instructions Recorded Confirmed Furosemide [Lasix] 40 mg PO DAILY 08/19/19 12/08/20 Cholecalciferol [Vitamin D3] 1,000 units PO DAILY 01/17/20 12/08/20 Lactulose 30 gm PO TID 01/17/20 12/08/20 Multivitamin W/Minerals [Theragran 1 each PO DAILY 01/17/20 12/08/20 M] Propranolol [Inderal] 15 mg PO BID 01/17/20 12/08/20 Lipase/Protease/Amylase [Creon Dr 1 cap PO TIDWM 06/14/20 12/08/20 6,000 Units Capsule] Pantoprazole Sodium 40 mg PO DAILY 06/14/20 12/08/20 Doxepin [SINEquan] 25 mg PO QPM 11/23/20 12/08/20 Gabapentin [Neurontin] 800 mg PO TID 11/23/20 12/08/20 Midodrine HCl 5 mg PO TID 11/23/20 12/08/20 QUEtiapine [SEROquel] 50 mg PO DAILY 11/23/20 12/08/20 Cyanocobalamin (Vitamin B-12) 1 tab PO DAILY 11/24/20 12/08/20 [Vitamin B-12] Folic Acid/Vit B Complex and C 1 tab PO DAILY 11/24/20 12/08/20 [B-Complex with Vit C Tablet] Famotidine [Pepcid] 20 mg PO BID tablet 11/27/20 12/08/20 LORazepam [Ativan] 1 mg PO BID #0 11/27/20 12/08/20 Thiamine [Vitamin B-1] 100 mg PO DAILY tablet 11/27/20 12/08/20 Meloxicam [Mobic] 1 tablet PO DAILY PRN #20 tab 12/08/20 Ondansetron Odt [Zofran] 4 mg TL Q6H PRN #20 tablet 12/09/20 - Allergies Allergies/Adverse Reactions: Allergies Allergy/AdvReac Type Severity Reaction Status Date / Time lisinopril Allergy Mild Anaphylaxis Verified 12/08/20 23:56 - Social History Does the pt smoke?: No Smoking Status: Never smoker Does the pt drink ETOH?: No Does the pt have substance abuse?: No - Immunizations Immunizations are current?: Yes Immunizations: Other immun not current - POLST Patient has POLST: No POLST Status: Full Code (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 and to REGISTERED PHARMACIST, 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.) PD ED PE NORMAL - Vitals Vital signs reviewed: Yes - General General: 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, Well developed/nourished - HEENT HEENT: Pharynx benign - Neck Neck: Supple, no meningeal sign, No adenopathy - Cardiac Cardiac: RRR, No murmur - Respiratory Respiratory: Clear bilaterally, Other (anterior chest wall tenderness parasternal without crepitance. ) - Abdomen Abdomen: Normal bowel sounds, Soft, Non distended, No organomegaly, Other (eepigastric tenderness with some guarding. ) - Derm Derm: Normal color, Warm and dry - Extremities Extremities: No tenderness to palpate, Normal ROM s pain, No calf tenderness / cord - Neuro Neuro: 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 (but having slurred speech and some ataxic hand movements c/w intoxication.), No motor deficit, Normal speech Results - Vitals Vitals: Oxygen O2 Source Room air Oxygen Flow Rate 2 - EKG (time done) 23:59 Rate: Rate (enter#) (84) Rhythm: NSR [place]: Normal Intervals: Normal NM QRS: Normal Ischemia: Normal ST segments. No: ST elevation c/w ischemia, ST depression - Labs Labs: Laboratory Tests 12/09/20 02:00 Sodium 133 L Potassium 4.0 Chloride 94 L Carbon Dioxide 23 Anion Gap 16.0 H BUN 27 H Creatinine 1.4 H Estimated GFR (MDRD) 52 L Glucose 161 H Calcium 9.6 Total Creatine Kinase 71 Ethyl Alcohol 258.7 - Rads (name of study) chest CT Radiology: Prelim report reviewed (old rib fractures, no new. No other acute process. ), See rad report PD MEDICAL DECISION MAKING - ED course Complexity details: reviewed results (ECG and CT chest are okay. Lipase was normal yesterday. ), re-evaluated patient (improving coherence after time in ER. He declines SW to assess for detox. ), considered differential, d/w patient ED course: Diagnosis: chest wall tenderness and pain gastric pain alcohol intoxication Departure - Departure Disposition: 01 Home, Self Care Condition: Stable Record reviewed to determine appropriate education?: Yes Follow-Up: Kim Dutton DO [Primary Care Provider] - Prescriptions: Ondansetron Odt [Zofran] 4 mg TL Q6H PRN #20 tablet PRN Reason: Nausea / Vomiting Comments: Continue the meloxicam prescribed yesterday daily for your chest wall tenderness. Continue your other usual medicines. In particular the pantoprazole. Add Tylenol 325 mg 4 times a day to help with pain as well. Ondansetron if needed for nausea. Please avoid excess alcohol and try to stop drinking in general if you can. Seek medical help for alcohol cessation. Your CT scan shows the old of prior rib fractures but no signs of new rib fractures nor any injury to the lung. You do have an enlarged liver which was previously known. No signs of injury to it. I presume you are having some m usculoskeletal chest wall tenderness and pain given that it is tender to the touch and with movement. This should be helped with time as well as some anti- inflammatories and just Tylenol. Discharge Date/Time: 12/09/20 09:07
[2020-12-09 02:16] LABS: CALCIUM 9.6 mg/dL (8.5-10.3); CREATININE 1.4 mg/dL (0.6-1.2); ETOH - ETHANOL 258.7 mg/dL
[2020-12-09] MEDS ORDERED: IOVERSOL 320 100 ML VIAL IVP ONE ×2 (02:24→03:23)
[2020-12-09] MEDS ORDERED: SODIUM CHLORIDE 0.9% 1,000 ML IV STA (06:01)
[2020-12-09 09:04] VITALS: BP 99/63
--- NOTE | 2020-12-09 09:42 | ED Physician Documentation ---
ED Addendum - Addendum Addendum: 12/09/20 09:42 Discussed with radiology in regards to the possibility that the rib fractures are acute versus chronic. Also the fluid around his liver looks like it subcapsular, not ascites. 12/09/20 09:45 d/w the patient over the phone and he is aware of need to f/u with his pmd.
--- NOTE | 2020-12-09 09:43 | CT Report ---
PROCEDURE: CHEST W INDICATIONS: chest pain/tenderness, fall/injury CONTRAST: IV CONTRAST: Optiray 320 ml: 100 PO CONTRAST: *NO PO CONTRAST TECHNIQUE: After the administration of intravenous contrast, 5 mm thick sections acquired from the pulmonary api ivan to the posterior costophrenic angles. 7 mm thick coronal MIP reformats were acquired. For radia tion dose reduction, the following was used: automated exposure control, adjustment of mA and/or kV according to patient size. COMPARISON: 06/14/2019. FINDINGS: Image quality: Excellent. Lungs and pleura: Very mild basilar bronchiectasis. No acute air space opacities. No pleural effusio ns or pneumothorax. Central and peripheral airways are patent and normal in caliber. Mediastinum: Heart size is normal. No pericardial effusion. Moderate coronary artery calcifications . No mediastinal or hilar adenopathy by size criteria. Thoracic aorta and central pulmonary arterie s are normal in size. Esophagus is normal in caliber. No hiatal hernia. Bones and chest wall: There is asymmetric prominent right breast tissue which was not present on the prior CT. The right br east tissue measures approximately 3.7 x 1.8 cm. There is increased left breast tissue compared to th e previous study. However, the left breast tissue measures only 2.3 x 1.2 cm. Cannot exclude a right breast mass. No suspicious bony lesions. Multiple old healed left rib fractures. Right anterolateral third and fo urth rib fractures are of uncertain chronicity, possibly acute. There are old posterior right rib fra ctures. No vertebral body compression fractures. No axillary or supraclavicular adenopathy by size c riteria. The thyroid is normal in size and there are no incidental findings.. Abdomen: There is a thin, crescentic subcapsular fluid collection along the right lobe of the liver. It measures approximately 1.3 cm. It has a Hounsfield measurement of 17. It may represent a small res olving subcapsular hematoma from previous trauma. IMPRESSION: 1. Multiple chronic rib fractures. 2. Right anterolateral third and fourth rib fractures of uncertain chronicity, possibly acute. 3. Small crescentic subcapsular liver fluid collection, possibly a small resolving subcapsular hemato ma of the liver from previous trauma. Findings are concordant with the preliminary report provided at the time of the study by [facility] [employer] [facility]. Above discussed with Dr. Scott at the time of dictation on 12/09/2020 at 0842 hours [place] daylight ti nc. CLINICAL RECOMMENDATION STATEMENTS: In patients <35 years with an ITN detected on CT, MRI, or extrathyroidal ultrasound, the Committee re commends further evaluation with dedicated thyroid ultrasound if the nodule is ?1 cm and has no suspi cious imaging features, and if the patient has normal life expectancy. In patients ?35 years with an ITN detected on CT, MRI, or extrathyroidal ultrasound, the Committee re commends further evaluation with dedicated thyroid ultrasound if the nodule is ?1.5 cm and has no per picious imaging features, and if the patient has normal life expectancy. (ACR, 2014) Reviewed by: Asim Tavera MD on 12/09/2020 8:42 AM RACHID Approved by: Asim Tavear MD on 12/09/2020 8:42 AM RACHID Station ID: [id number]
== END 2020-12-09 09:07 | disposition home or self-care (01) ==
LOC: EDUNIT# → ED 23:33
DX: R07.89 Other chest pain (principal); R10.9 Unspecified abdominal pain; F10.129 Alcohol abuse with intoxication, unspecified; S20.211A Contusion of right front wall of thorax, initial encounter; W19.XXXA Unspecified fall, initial encounter; F10.20 Alcohol dependence, uncomplicated; Z87.891 Personal history of nicotine dependence
CPT/HCPCS: 36415; 71045; 71260; 80048; 80053; 82550; 83690; 84484; 85025; 93005; 96360; 96374; 99284; A9270; G0480; Q9967; 80320

== ENCOUNTER 2020-12-13 12:40 | Outpatient (CLI) | payer MEDICARE, MEDICAID | END 2020-12-13 12:41 | disposition critical access hospital (66) | LOC: EMS 12:40 | DX: R40.4 Transient alteration of awareness (principal) | CPT/HCPCS: A0425; A0433 ==

== ENCOUNTER 2020-12-13 12:54 | Inpatient (IN) | payer MEDICARE, MEDICAID ==
[2020-12-13] MEDS ORDERED: SODIUM CHLORIDE 0.9% 1,000 ML IV STA ×2 (13:01→14:18)
[2020-12-13] MEDS ORDERED: IOVERSOL 320 100 ML VIAL IVP ONE ×2 (13:07→20:13)
--- NOTE | 2020-12-13 13:10 | ED Physician Documentation ---
PD HPI CPR - Stated complaint Stated Complaint: ROSC - Chief complaint Chief Complaint: Critical Care - History obtained from History obtained from: EMS - Additional information Additional information: 55-year-old gentleman with history of alcoholism presents after being found down with possible cardiac arrest. Reportedly from EMS the mother heard a thump and found him prone in the bathroom. It looks like he was going to get in the shower but had not yet. No pulse was felt, but he was resuscitated with CPR and I think epinephrine. It is unclear what rhythm he was in prior to return of spontaneous circulation. Prior to arrival was intubated, and had etomidate, succinylcholine, vecuronium, and Versed. He is hemodynamically stable but intubated on arrival. Reportedly there was some blood on the floor but it was not clear where it was coming from, EMS posited a nosebleed. Review of Systems Unable to obtain: Intubated PD PAST MEDICAL HISTORY - Past Medical History Cardiovascular: Hypertension, High cholesterol Respiratory: Sleep apnea, CPAP use Neuro: Headaches, Other Endocrine/Autoimmune: None, Other GI: GERD, Pancreatitis, Cirrhosis : Incontinence HEENT: None Psych: Depression, Anxiety, Panic attacks, Claustrophobia Musculoskeletal: Osteoarthritis Derm: None - Past Surgical History Past Surgical History: Yes Ortho: Hip replacement, Arthroscopic surgery HEENT: Tracheostomy - Present Medications Home Medications: Ambulatory Orders Medication Instructions Recorded Confirmed Furosemide [Lasix] 40 mg PO DAILY 08/19/19 12/08/20 Cholecalciferol [Vitamin D3] 1,000 units PO DAILY 01/17/20 12/08/20 Lactulose 30 gm PO TID 01/17/20 12/08/20 Multivitamin W/Minerals [Theragran 1 each PO DAILY 01/17/20 12/08/20 M] Propranolol [Inderal] 15 mg PO BID 01/17/20 12/08/20 Lipase/Protease/Amylase [Creon Dr 1 cap PO TIDWM 06/14/20 12/08/20 6,000 Units Capsule] Pantoprazole Sodium 40 mg PO DAILY 06/14/20 12/08/20 Doxepin [SINEquan] 25 mg PO QPM 11/23/20 12/08/20 Gabapentin [Neurontin] 800 mg PO TID 11/23/20 12/08/20 Midodrine HCl 5 mg PO TID 11/23/20 12/08/20 QUEtiapine [SEROquel] 50 mg PO DAILY 11/23/20 12/08/20 Cyanocobalamin (Vitamin B-12) 1 tab PO DAILY 11/24/20 12/08/20 [Vitamin B-12] Folic Acid/Vit B Complex and C 1 tab PO DAILY 11/24/20 12/08/20 [B-Complex with Vit C Tablet] Famotidine [Pepcid] 20 mg PO BID tablet 11/27/20 12/08/20 LORazepam [Ativan] 1 mg PO BID #0 11/27/20 12/08/20 Thiamine [Vitamin B-1] 100 mg PO DAILY tablet 11/27/20 12/08/20 Meloxicam [Mobic] 1 tablet PO DAILY PRN #20 tab 12/08/20 Ondansetron Odt [Zofran] 4 mg TL Q6H PRN #20 tablet 12/09/20 - Allergies Allergies/Adverse Reactions: Allergies Allergy/AdvReac Type Severity Reaction Status Date / Time lisinopril Allergy Mild Anaphylaxis Verified 12/08/20 23:56 - Social History Does the pt smoke?: No Smoking Status: Never smoker Does the pt drink ETOH?: No Does the pt have substance abuse?: No - Immunizations Immunizations are current?: Yes Immunizations: Other immun not current - POLST Patient has POLST: No POLST Status: Full Code (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 and to [employer], 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.) PD ED PE NORMAL - Vitals Vital signs reviewed: Yes - General General: Other (Intubated, GCS 3) - HEENT HEENT: Other (Slightly dilated pupils but they are reactive) - Neck Neck: Other (Maintained in a c-collar pending imaging given obtundation.) - Cardiac Cardiac: RRR, No murmur - Respiratory Respiratory: Other (No spontaneous respiratory activity but he did get vecuronium and Versed just prior to arrival. Lungs are clear and equal.) - Abdomen Abdomen: Soft, Non tender - Back Back: No CVA TTP, No spinal TTP - Derm Derm: Normal color, Warm and dry, No rash - Extremities Extremities: Other (No obvious signs of trauma) - Neuro Eye Opening: None Motor: None Verbal: None GCS Score: 3 Results - Vitals Vitals: Oxygen O2 Source Room air - EKG (time done) 1300 Rate: Rate (enter#) (90) Rhythm: NSR [place]: Normal Intervals: Prolonged MS Ischemia: Non specific changes. No: ST elevation c/w ischemia, ST depression Computer interpretation: Agree with computer - Labs Labs: Laboratory Tests 12/13/20 12/13/20 12/13/20 13:05 13:05 13:05 WBC 4.7 L RBC 3.76 L Hgb 12.7 L Hct 37.0 L MCV 98.4 H MCH 33.8 H MCHC 34.3 RDW 13.3 Plt Count 256 MPV 9.1 Neut # (Auto) 2.1 Lymph # (Auto) 1.8 [place] # (Auto) 0.5 Eos # (Auto) 0.4 Baso # (Auto) 0.0 Absolute Nucleated RBC 0.00 Nucleated RBC % 0.0 PT 11.5 INR 1.0 Bld Gas Analysis Time Sample Site ABG pH ABG pCO2 ABG pO2 ABG HCO3 ABG Total CO2 ABG O2 Saturation ABG Base Excess Arian Test VBG pH VBG pCO2 VBG pO2 VBG HCO3 VBG Total CO2 VBG O2 Saturation VBG Base Excess Respiration Rate O2 Delivery Device Vent Mode FiO2 Tidal Volume PEEP Sodium 136 Potassium 4.5 Chloride 100 L Carbon Dioxide 22 Anion Gap 14.0 H BUN 30 H Creatinine 1.1 Estimated GFR (MDRD) 69 L Glucose 89 Lactic Acid Calcium 9.1 Phosphorus 4.3 Magnesium 2.1 Total Bilirubin 0.6 AST 29 ALT 14 Alkaline Phosphatase 89 Ammonia Total Creatine Kinase 156 Troponin I High Sens B-Natriuretic Peptide Total Protein 7.5 Albumin 4.1 Globulin 3.4 Albumin/Globulin Ratio 1.2 Lipase 17 L Urine Color Urine Clarity Urine pH Ur Specific [place] Urine Protein Urine Glucose (UA) Urine Ketones Urine Occult Blood Urine Nitrite Urine Bilirubin Urine Urobilinogen Ur Leukocyte Esterase Ur Microscopic Review Urine Culture Comments Salicylates < 6.0 Urine Opiates Screen Ur Oxycodone Screen Urine Methadone Screen Ur Propoxyphene Screen Acetaminophen 11 Ur Barbiturates Screen Ur Tricyclics Screen Ur Phencyclidine Scrn Ur Amphetamine Screen U Methamphetamines Scrn U Benzodiazepines Scrn Urine Cocaine Screen U Cannabinoids Screen Ethyl Alcohol 222.6 12/13/20 12/13/20 12/13/20 13:05 13:05 14:05 WBC RBC Hgb Hct MCV MCH MCHC RDW Plt Count MPV Neut # (Auto) Lymph # (Auto) [place] # (Auto) Eos # (Auto) Baso # (Auto) Absolute Nucleated RBC Nucleated RBC % PT INR Bld Gas Analysis Time Sample Site ABG pH ABG pCO2 ABG pO2 ABG HCO3 ABG Total CO2 ABG O2 Saturation ABG Base Excess Arian Test VBG pH VBG pCO2 VBG pO2 VBG HCO3 VBG Total CO2 VBG O2 Saturation VBG Base Excess Respiration Rate O2 Delivery Device Vent Mode FiO2 Tidal Volume PEEP Sodium Potassium Chloride Carbon Dioxide Anion Gap BUN Creatinine Estimated GFR (MDRD) Glucose Lactic Acid Calcium Phosphorus Magnesium Total Bilirubin AST ALT Alkaline Phosphatase Ammonia Total Creatine Kinase Troponin I High Sens < 2.3 L B-Natriuretic Peptide 39 Total Protein Albumin Globulin Albumin/Globulin Ratio Lipase Urine Color YELLOW Urine Clarity CLEAR Urine pH 6.0 Ur Specific [place] 1.010 Urine Protein NEGATIVE Urine Glucose (UA) NEGATIVE Urine Ketones NEGATIVE Urine Occult Blood NEGATIVE Urine Nitrite NEGATIVE Urine Bilirubin NEGATIVE Urine Urobilinogen 0.2 (NORMAL) Ur Leukocyte Esterase NEGATIVE Ur Microscopic Review NOT INDICATED Urine Culture Comments NOT INDICATED Salicylates Urine Opiates Screen NEGATIVE Ur Oxycodone Screen NEGATIVE Urine Methadone Screen NEGATIVE Ur Propoxyphene Screen NEGATIVE Acetaminophen Ur Barbiturates Screen NEGATIVE Ur Tricyclics Screen POSITIVE H Ur Phencyclidine Scrn NEGATIVE Ur Amphetamine Screen NEGATIVE U Methamphetamines Scrn NEGATIVE U Benzodiazepines Scrn POSITIVE H Urine Cocaine Screen NEGATIVE U Cannabinoids Screen NEGATIVE Ethyl Alcohol 12/13/20 12/13/20 12/13/20 14:17 14:17 14:17 WBC RBC Hgb Hct MCV MCH MCHC RDW Plt Count MPV Neut # (Auto) Lymph # (Auto) [place] # (Auto) Eos # (Auto) Baso # (Auto) Absolute Nucleated RBC Nucleated RBC % PT INR Bld Gas Analysis Time Sample Site ABG pH ABG pCO2 ABG pO2 ABG HCO3 ABG Total CO2 ABG O2 Saturation ABG Base Excess Arian Test VBG pH 7.444 H VBG pCO2 30.5 L VBG pO2 69.2 H VBG HCO3 20.4 L VBG Total CO2 21.4 L VBG O2 Saturation 94.5 H VBG Base Excess -2.6 L Respiration Rate O2 Delivery Device Vent Mode FiO2 Tidal Volume PEEP Sodium Potassium Chloride Carbon Dioxide Anion Gap BUN Creatinine Estimated GFR (MDRD) Glucose Lactic Acid 3.0 H* Calcium Phosphorus Magnesium Total Bilirubin AST ALT Alkaline Phosphatase Ammonia 16.8 Total Creatine Kinase Troponin I High Sens B-Natriuretic Peptide Total Protein Albumin Globulin Albumin/Globulin Ratio Lipase Urine Color Urine Clarity Urine pH Ur Specific [place] Urine Protein Urine Glucose (UA) Urine Ketones Urine Occult Blood Urine Nitrite Urine Bilirubin Urine Urobilinogen Ur Leukocyte Esterase Ur Microscopic Review Urine Culture Comments Salicylates Urine Opiates Screen Ur Oxycodone Screen Urine Methadone Screen Ur Propoxyphene Screen Acetaminophen Ur Barbiturates Screen Ur Tricyclics Screen Ur Phencyclidine Scrn Ur Amphetamine Screen U Methamphetamines Scrn U Benzodiazepines Scrn Urine Cocaine Screen U Cannabinoids Screen Ethyl Alcohol 12/13/20 12/13/20 15:08 15:25 WBC RBC Hgb Hct MCV MCH MCHC RDW Plt Count MPV Neut # (Auto) Lymph # (Auto) [place] # (Auto) Eos # (Auto) Baso # (Auto) Absolute Nucleated RBC Nucleated RBC % PT INR Bld Gas Analysis Time 1529 Sample Site RIGHT RADIAL ABG pH 7.44 ABG pCO2 32 L ABG pO2 51 L* ABG HCO3 21.4 L ABG Total CO2 22.4 ABG O2 Saturation 88 L ABG Base Excess -2.0 Arian Test POSITIVE VBG pH VBG pCO2 VBG pO2 VBG HCO3 VBG Total CO2 VBG O2 Saturation VBG Base Excess Respiration Rate 16 O2 Delivery Device VENTILATOR Vent Mode ASSIST/CONTROL FiO2 40.00 Tidal Volume 550 PEEP 8 Sodium Potassium Chloride Carbon Dioxide Anion Gap BUN Creatinine Estimated GFR (MDRD) Glucose Lactic Acid Calcium Phosphorus Magnesium Total Bilirubin AST ALT Alkaline Phosphatase Ammonia Total Creatine Kinase Troponin I High Sens 3.6 B-Natriuretic Peptide Total Protein Albumin Globulin Albumin/Globulin Ratio Lipase Urine Color Urine Clarity Urine pH Ur Specific [place] Urine Protein Urine Glucose (UA) Urine Ketones Urine Occult Blood Urine Nitrite Urine Bilirubin Urine Urobilinogen Ur Leukocyte Esterase Ur Microscopic Review Urine Culture Comments Salicylates Urine Opiates Screen Ur Oxycodone Screen Urine Methadone Screen Ur Propoxyphene Screen Acetaminophen Ur Barbiturates Screen Ur Tricyclics Screen Ur Phencyclidine Scrn Ur Amphetamine Screen U Methamphetamines Scrn U Benzodiazepines Scrn Urine Cocaine Screen U Cannabinoids Screen Ethyl Alcohol - Rads (name of study) CT Head/Cspine/Chest/Abd Radiology: EMP read contemporaneously (atalectasis vs aspiration, old findings) PD MEDICAL DECISION MAKING - ED course ED course: 55-year-old gentleman found down in his bathroom. Initially brought in as a full trauma but no significant signs of trauma and given history I suspect this is more homer to overdose or something along those lines. Its not even clear if he was completely pulseless, they did not feel a pulse but it is unclear what rhythm he was in before ROSC was achieved. Given the potential trauma he did have a mcrae scan done with what which was wi thout acute traumatic findings. He started to wake up and required sedation. Was intermittently following commands and actually trialed a CPAP trial but was apneic for that so we could not extubate. I spoke with his mother, updated her on the situation and findings. Also reassuring neurologic findings. Our ICU here is full and we discussed where should start calling for transfer. Initially she said [facility] but after a while we were talking and turns out that [facility] has inpatient detox so she would like to start with the ICU there. We called [facility], but they were full. In the interim though it turned out that ICU bed was available here and Dr. Ybarrasef will admit, requested a second troponin prior to admission which was done without significant change. - Critical Care Time(min): 50 Time Includes: Direct patient care, Review records, Reassess patient, Document care, Coordinate care, Medical consult, Family consult for tx dec Data interpretation: Labs, Pulse ox Procedures included in critical care time: Peripheral IV Procedures excluded from critical care time: EKG Departure - Departure Disposition: 66 [facility] DC/Xfer Clinical Impression: Benzodiazepine dependence, History of seizures, Liver disease due to alcohol, Chronic alcoholism, Obtunded, Cardiac arrest Condition: Critical
[2020-12-13] MEDS ORDERED: PROPOFOL 500 MG/50 ML 500 MG/50 ML VIAL IV STA ×2 (13:13→14:56)
[2020-12-13 13:16] LABS: BASOPHILS % (AUTO) 0.4 %; EOSINOPHILS # (AUTO) 0.4 10^3/uL (0.0-0.7); HGB - HEMOGLOBIN 12.7 g/dL (14.0-18.0); LYMPHOCYTES # (AUTO) 1.8 10^3/uL (1.5-3.5); LYMPHOCYTES % (AUTO) 37.8 %; MEAN CORPUSCULAR HEMOGLOBIN 33.8 pg (27.0-31.0); MEAN CORPUSCULAR HGB CONC 34.3 g/dL (32.0-36.0); MEAN CORPUSCULAR VOLUME 98.4 fL (80.0-94.0); MEAN PLATELET VOLUME 9.1 fL (7.4-11.4); MONOCYTES # (AUTO) 0.5 10^3/uL (0.0-1.0); MONOCYTES % (AUTO) 9.5 %; NEUTROPHILS # (AUTO) 2.1 10^3/uL (1.5-6.6); NEUTROPHILS % (AUTO) 43.9 %; PLT - PLATELET COUNT 256 10^3/uL (130-450); RED BLOOD COUNT 3.76 10^6/uL (4.70-6.10); RED CELL DISTRIBUTION WIDTH 13.3 % (12.0-15.0); WHITE BLOOD COUNT 4.7 x10^3/uL (4.8-10.8)
--- NOTE | 2020-12-13 13:23 | XRAY Report ---
PROCEDURE: Chest 1 View X-Ray INDICATIONS: Trauma, ROSC, resp failure TECHNIQUE: One view of the chest was acquired. COMPARISON: CT chest 12/09/2020 FINDINGS: Surgical changes and devices: Endotracheal tube terminates in the thoracic trachea approximately 6 cm from [place]. Lungs and pleura: Increased interstitial markings in both lungs. No visible pleural effusion. Mediastinum: Mediastinal contours appear normal. Heart size is enlarged. Bones and chest wall: No suspicious bony lesions. Overlying soft tissues appear unremarkable. Mult iple remote rib fractures. IMPRESSION: Findings of cardiomegaly and mild pulmonary edema. Endotracheal tube in appropriate position. Remote rib fractures. Reviewed by: Yamil Man MD on 12/13/2020 1:22 PM PDT Approved by: Yamil Man MD on 12/13/2020 1:22 PM PDT Station ID: [id number]
[2020-12-13 13:24] LABS: PT - PROTHROMBIN TIME 11.5 secs (9.9-12.6)
[2020-12-13 13:35] LABS: ACETAMINOPHEN 11 ug/mL (10-30); ALBUMIN 4.1 g/dL (3.2-5.5); ALBUMIN/GLOBULIN RATIO 1.2 (1.0-2.2); ALKALINE PHOSPHATASE 89 IU/L (42-121); ALT ALANINE AMINOTRANSFERASE 14 IU/L (10-60); AST ASPARTATE AMINOTRANSFERASE 29 IU/L (10-42); BILIRUBIN,TOTAL 0.6 mg/dL (0.2-1.0); BUN - BLOOD UREA NITROGEN 30 mg/dL (6-20); CALCIUM 9.1 mg/dL (8.5-10.3); CARBON DIOXIDE - CO2 22 mmol/L (21-32); CHLORIDE 100 mmol/L (101-111); CK- CREATINE KINASE 156 IU/L (22-269); CREATININE 1.1 mg/dL (0.6-1.2); ETOH - ETHANOL 222.6 mg/dL; GFR - MDRD 69 (>89); GLUCOSE 89 mg/dL (70-100); LIPASE 17 U/L (22-51); MAGNESIUM 2.1 mg/dL (1.7-2.8); PHOSPHORUS 4.3 mg/dL (2.5-4.6); POTASSIUM 4.5 mmol/L (3.5-5.0); SALICYLATE < 6.0 mg/dL; SODIUM 136 mmol/L (135-145); TOTAL PROTEIN 7.5 g/dL (6.7-8.2)
[2020-12-13] MEDS ORDERED: PROPOFOL 200 MG/20 ML VIAL IVP STA (13:37)
[2020-12-13] MEDS ORDERED: MIDAZOLAM 2 MG/2 ML VIAL IVP STA (13:42)
[2020-12-13] MEDS ORDERED: MIDAZOLAM 2 MG/2 ML VIAL ONE (13:45)
--- NOTE | 2020-12-13 14:02 | CT Report ---
PROCEDURE: HEAD WO INDICATIONS: Trauma, ROSC, resp failure TECHNIQUE: Noncontrast 4.5 mm thick angled axial sections acquired from the foramen magnum to the vertex. For r adiation dose reduction, the following was used: automated exposure control, adjustment of mA and/or kV according to patient size. COMPARISON: 11/23/[address] FINDINGS: Image quality: Excellent. CSF spaces: Basal cisterns are patent. No extra-axial fluid collections. Ventricles are normal in size and shape. Brain: No midline shift. No intracranial masses or hemorrhage. Muhammad-white matter interface is norm al. Skull and face: Calvarium and visualized facial bones are intact, without suspicious lesions. Sinuses: Visualized sinuses and mastoids are predominantly clear. IMPRESSION: No acute intracranial abnormality demonstrated. Reviewed by: Yamil Man MD on 12/13/2020 2:00 PM PDT Approved by: Yamil Man MD on 12/13/2020 2:00 PM PDT Station ID: [id number]
--- NOTE | 2020-12-13 14:10 | CT Report ---
PROCEDURE: CERVICAL SPINE WO INDICATIONS: Trauma, ROSC, resp failure TECHNIQUE: Noncontrast 3 mm thick sections acquired from the skull base to the T4 level. Sagittal and coronal r eformats were then constructed. For radiation dose reduction, the following was used: automated exp osure control, adjustment of mA and/or kV according to patient size. COMPARISON: 04/24/2020, 11/23/2020 FINDINGS: Image quality: Excellent. Bones there is no fracture identified. Degenerative straightening of usual cervical lordosis. Otherwi se normal alignment. Facet spaces are congruent with no evidence of dislocation or subluxation. There is moderate to severe degenerative change at every level in the cervical spine from C2-C3 through C6 -C7 characterized by disc height loss, degenerative endplate changes and irregularity, as well as bot h facet and uncovertebral hypertrophy. Soft tissues: Prevertebral soft tissues are normal in thickness. No paravertebral hematomas. No ap ical pneumothoraces. IMPRESSION: No CT evidence of acute traumatic cervical spine injury. Reviewed by: Yamil Man MD on 12/13/2020 2:09 PM PDT Approved by: Yamil Man MD on 12/13/2020 2:09 PM PDT Station ID: [id number]
--- NOTE | 2020-12-13 14:15 | CT Report ---
PROCEDURE: CHEST W INDICATIONS: Trauma, ROSC, resp failure CONTRAST: IV CONTRAST: Optiray 320 ml: 100 PO CONTRAST: *NO PO CONTRAST TECHNIQUE: After the administration of intravenous contrast, 5 mm thick sections acquired from the pulmonary api ivan to the posterior costophrenic angles. 7 mm thick coronal MIP reformats were acquired. For radia tion dose reduction, the following was used: automated exposure control, adjustment of mA and/or kV according to patient size. COMPARISON: None. FINDINGS: Image quality: Excellent. Lungs and pleura: No acute air space opacities superiorly but in each posterior lung base there appe ars to be mild or early pneumonia. No pleural effusions or pneumothorax. Central and peripheral air ways are patent and normal in caliber. Mediastinum: Heart size is normal. No pericardial effusion. No mediastinal or hilar adenopathy by size criteria. Thoracic aorta and central pulmonary arteries are normal in size. Esophagus is alex l in caliber. No hiatal hernia. Bones and chest wall: No suspicious bony lesions. There are old healed left-sided rib fractures. No vertebral body compression fractures. No axillary or supraclavicular adenopathy by size criteria. The thyroid is normal in size and there are no incidental findings.. Abdomen: Visualized upper abdominal solid organs appear normal. Upper abdominal bowel loops are nor mal in caliber. IMPRESSION: Endotracheal tube in normal position. No pneumothorax. Bilateral posterior lung base pneumonia versus atelectasis. Aspiration in the setting of trauma also could explain that appearance. Old healed left -sided rib fractures. Reviewed by: Ciro Gomez MD on 12/13/2020 2:13 PM PDT Approved by: Ciro Gomez MD on 12/13/2020 2:13 PM PDT Station ID: [id number]
--- NOTE | 2020-12-13 14:19 | CT Report ---
PROCEDURE: Abdomen/Pelvis W INDICATIONS: Trauma, ROSC, resp failure CONTRAST: IV CONTRAST: Optiray 320 ml: 100 PO CONTRAST: *NO PO CONTRAST TECHNIQUE: After the administration of contrast, 5 mm thick sections acquired from the diaphragms to the sym physis. 5 mm thick coronal and sagittal reformats were acquired. For radiation dose reduction, the following was used: automated exposure control, adjustment of mA and/or kV according to patient size . COMPARISON: 01/17/2020 CT abdomen/pelvis reviewed.. FINDINGS: Image quality: Excellent. ABDOMEN: Lung bases: Lung bases are abnormal with what appears to be bilateral posterior lung base pneumonia or aspiration. Old left-sided healed rib fractures incidentally noted.. Heart size is normal. Solid organs: Liver and spleen are normal in size and enhancement. Gallbladder contains a thin laye r milk of calcium at the dependent margin of the gallbladder posteriorly. No gallstones or acute chol ecystitis would be suspected. Biliary system is non dilated. Pancreas enhances normally. No adrena l nodules. Kidneys demonstrate normal size and enhancement, without hydronephrosis. Peritoneum and bowel: Bowel loops demonstrate normal wall thickness and caliber. No free fluid or a ir. Nodes and vessels: No retroperitoneal or mesenteric adenopathy by size criteria. Aorta and inferior vena cava are normal in size. Miscellaneous: No ventral hernias. PELVIS: Genitourinary: Bladder wall thickness is normal. Miscellaneous: No inguinal hernias or adenopathy. Normal appendix found right lower quadrant. Bones: No suspicious bony lesions. No vertebral body compression fractures. IMPRESSION: Pneumonia or aspiration appears present at the posterior lung bases bilaterally. Old hea led left-sided lower rib fractures. Within the abdomen and pelvis no trauma is seen. Note is made of a small amount of milk of calcium wi thin the dependent margin of the gallbladder lumen, but there is no sign of acute cholecystitis or bi liary obstruction. At the right hip a total hip arthroplasty produces metal artifact degrading quality of visualization of the lower right pelvis. Accurate assessment for presence trauma within that portion of the pelvis would be limited. Reviewed by: Ciro Gomez MD on 12/13/2020 2:17 PM PDT Approved by: Ciro Gomez MD on 12/13/2020 2:17 PM PDT Station ID: [id number]
[2020-12-13 14:28] LABS: MUDS CUTOFF CONCENTRATIONS CUTOFF CONC BELOW:
[2020-12-13 14:28] LABS: VBG BASE EXCESS -2.6 mmol/L (-2 - +2); VBG HCO3 20.4 mmol/L (23-28); VBG PCO2 30.5 mmHg (41-51); VBG PH 7.444 (7.31-7.41); VBG PO2 69.2 mmHg (25-47); VBG TOTAL CO2 21.4 mmol/L (24-29)
[2020-12-13 14:29] LABS: VBG OXYGEN SATURATION 94.5 % (60-80)
[2020-12-13 14:32] LABS: BILIRUBIN,URINE NEGATIVE (NEGATIVE); GLUCOSE, URINE (UA) NEGATIVE (NEGATIVE); KETONES,URINE (UA) NEGATIVE (NEGATIVE); LEUKOCYTE ESTERASE, URINE NEGATIVE (NEGATIVE); NITRITE,URINE NEGATIVE (NEGATIVE); OCCULT BLOOD,URINE NEGATIVE (NEGATIVE); PROTEIN,URINE NEGATIVE (NEGATIVE); UROBILINOGEN,URINE 0.2 (NORMAL) E.U./dL (NORMAL)
[2020-12-13 14:34] LABS: CLARITY,URINE CLEAR (CLEAR)
[2020-12-13 14:41] LABS: THC CANNABINOID SCREEN, URINE NEGATIVE (NEGATIVE)
[2020-12-13 14:42] LABS: AMPHETAMINE SCREEN,URINE NEGATIVE (NEGATIVE); BARBITURATE SCREEN,UR NEGATIVE (NEGATIVE); BENZODIAZEPINES SCREEN, URINE POSITIVE (NEGATIVE); COCAINE SCREEN URINE NEGATIVE (NEGATIVE); METHADONE SCREEN, URINE NEGATIVE (NEGATIVE); METHAMPHETAMINES SCREEN, URINE NEGATIVE (NEGATIVE); OPIATE SCREEN, URINE NEGATIVE (NEGATIVE); OXYCODONE SCREEN, URINE NEGATIVE (NEGATIVE); PROPOXYPHENE SCREEN, URINE NEGATIVE (NEGATIVE); TRICYCLIC ANTIDEPRESSANT,URINE POSITIVE (NEGATIVE)
[2020-12-13 15:30] LABS: ABG HCO3 21.4 mmol/L (22.0-26.0); ABG PCO2 32 mmHg (34-45); ABG PH 7.44 (7.35-7.45); ABG TCO2 22.4 MMOL/L (21.0-29.0)
[2020-12-13 15:31] LABS: ABG MODE OF VENTILATION ASSIST/CONTROL; ABG OXYGEN SATURATION 88 % (94-98); ABG RESPIRATORY RATE 16 b/min; ALLEN TEST POSITIVE
[2020-12-13 15:33] LABS: ABG PO2 51 mmHg (80-100)
[2020-12-13] MEDS ORDERED: ONDANSETRON 4 MG/2 ML VIAL IVP PRN (15:41)
[2020-12-13] MEDS ORDERED: ACETAMINOPHEN 325 MG TABLET PO PRN (15:41)
--- NOTE | 2020-12-13 15:50 | HISTORY & PHYSICAL EXAMINATION ---
Chief Complaint - Chief Complaint Chief Complaint: Unresponsive History of Present Illness - Admitted From Admitted From:: Home - History Obtained From Records Reviewed: Yes History obtained from: ER Physician, EMR Exam Limitations: Patient is intubated and unable to provide a history. - History of Present Illness HPI Comment/Other: This is a 55-year-old male with history of alcohol abuse, liver disease, polypharmacy who presents today after being found unresponsive at home. The patient reportedly was found by his mother after she heard him fall while in the bathroom. He was reportedly going to get into the shower but fell before getting in. There was no pulse felt and so CPR was initiated and he was given a dose of epinephrine. It has not been reported what rhythm he was in prior to return of spontaneous circulation. He was intubated in the field and was brought to our emergency department. There he was reportedly waking up a little bit and he was placed on CPAP trial in hopes of possibly extubating him but he had apneic episodes and so he was kept intubated. His labs were overall unremarkable except for lactic acid of 3.0. Troponin was checked twice and both were negative. His EKG revealed sinus rhythm with slight ST elevations in the inferior leads but this was not consistent with ischemia. He underwent imaging of his head, chest, abdomen pelvis which overall was unremarkable except for con cerns for aspiration pneumonia. Given the above findings, medicine was consulted for admission. History - Past Medical History Cardiovascular: reports: Hypertension, High cholesterol Respiratory: reports: Sleep apnea, CPAP use Neuro: reports: Headaches, Other Endocrine/Autoimmune: reports: None, Other GI: reports: GERD, Pancreatitis, Cirrhosis : reports: Incontinence HEENT: reports: None Psych: reports: Depression, Anxiety, Panic attacks, Claustrophobia Musculoskeletal: reports: Osteoarthritis Derm: reports: None MRSA Hx?: No - Past Surgical History Ortho: reports: Hip replacement, Arthroscopic surgery HEENT: reports: Tracheostomy - Family & Social History Family History: Mother: Alive and Well Family History Comment/Other: Unable to obtain family history due to the fact that he is intubated. Living Situation: With family (He lives with his mother.) Social History Notes: The patient lives at home with his mother. I am unable to review social history given he is intubated but review of prior records reveal that the patient smoked for 4 years and quit in 2005. He smoked a pack a day. The patient is an alcoholic and drinks daily. According to him he drinks 1-5 drinks of mixed drinks with vodka. The patient is his in 2008 due to pancreatitis. The patient has had a an issue with alcohol abuse since his teen years. The patient does use marijuana on occasion. He has no history of methamphetamine, heroin, cocaine, LSD abuse. - Substance History Use: Uses substance without health or social issues: Alcohol, Psychoactive Drug - POLST Patient has POLST: No POLST Status: Full Code (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 and to [employer], 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.) Meds/Allgy - Home Medications Home Medications: Ambulatory Orders Medication Instructions Recorded Confirmed Furosemide [Lasix] 40 mg PO DAILY 08/19/19 12/13/20 Cholecalciferol [Vitamin D3] 1,000 units PO DAILY 01/17/20 12/13/20 Multivitamin W/Minerals [Theragran 1 each PO DAILY 01/17/20 12/13/20 M] Propranolol [Inderal] 15 mg PO BID 01/17/20 12/13/20 Pantoprazole Sodium 40 mg PO DAILY 06/14/20 12/13/20 Doxepin [SINEquan] 25 mg PO QPM 11/23/20 12/13/20 Gabapentin [Neurontin] 800 mg PO TID 11/23/20 12/13/20 QUEtiapine [SEROquel] 50 mg PO DAILY 11/23/20 12/13/20 Folic Acid/Vit B Complex and C 1 tab PO DAILY 11/24/20 12/13/20 [B-Complex with Vit C Tablet] LORazepam [Ativan] 1 mg PO BID #0 11/27/20 12/13/20 Meloxicam [Mobic] 1 tablet PO DAILY PRN #20 tab 12/08/20 12/13/20 Ondansetron Odt [Zofran] 4 mg TL Q6H PRN #20 tablet 12/09/20 12/13/20 Spironolactone [Aldactone] 100 mg PO DAILY 12/13/20 12/13/20 traMADol [Ultram] 50 mg PO Q6HR PRN 12/13/20 12/13/20 - Allergies Allergies/Adverse Reactions: Allergies Allergy/AdvReac Type Severity Reaction Status Date / Time lisinopril Allergy Mild Anaphylaxis Verified 12/08/20 23:56 Review of Systems - All Other Systems All Other Systems: reports: Other (Unable to obtain as he is intubated.) Prior Level of Functionality: Independent with his ADLs. Exam - Vital Signs Reviewed Vital Signs: Yes - Physical Exam General Appearance: positive: Other (Sedated on ventilator.) Eyes Bilateral: positive: Other (Pupils constricted bilaterally.) ENT: positive: Other (ET tube in place) Neck: positive: Nml inspection Respiratory: positive: No respiratory distress, Rhonchi. negative: Wheezes, Rales Cardiovascular: positive: Regular rate & rhythm, No murmur. negative: Tachycardia Abdomen: positive: Nml bowel sounds, No distention. negative: Tenderness Skin: positive: Warm, Dry Extremities: positive: No pedal edema Neurologic/Psychiatric: positive: Other (He is sedated and unable to follow commands. No evidence of clonus.) Conclusion/Plan - Problem List (1) Unresponsive episode Conclusion/Plan: The concern was for potential cardiac arrest he did have CPR and a dose of epinephrine with return of spontaneous circulation. It is still not clear if he truly had a cardiac arrest or if he just had an unresponsive episode. His EKG has minimal ST elevation in the inferior leads but no obvious ischemia. His troponins have been unremarkable. Imaging suggests aspiration pneumonia. While in the emergency department they were able to suction multiple pills and I do wonder if he could have potentially aspirated or obstructed his airway causing him to be unresponsive. The concern is also for polypharmacy and that this could have contributed to his unresponsive episode. He is on multiple sedatives at home and has a history in the past of overdose. His alcohol level is greater than 200. Urine drug screen is positive for tricyclics and benzodiazepines. At this time, we will keep him intubated overnight and sedated with propofol. We will reassess his neuro status in the morning. They did trial him on CPAP in the ER as he was waking up but had multiple apneic episodes. I am hopeful to extubate him in the morning. We will order an echocardiogram and continue to trend troponin although low suspicion for ACS. (2) On mechanically assisted ventilation Conclusion/Plan: He was intubated for airway protection. Imaging is consistent with aspiration pneumonia. We will place him on Zosyn IV and continue mechanical ventilation overnight. We will hope to extubate him in the morning. Propofol for sedation. (3) Aspiration pneumonia Conclusion/Plan: Imaging is concerning for aspiration pneumonia and this likely due to his unresponsive episode as well as potentially the CPR he received. Given there also been suctioning pills in the emergency department, I do wonder if he could have obstructed his airway which led to the unresponsive episode. We will place him on Zosyn IV empirically. (4) Polypharmacy Conclusion/Plan: He has a history of overdose in the past and he is on multiple sedatives at home. He has been admitted previously to the intensive care unit and required a Narcan infusion. His medical urine drug screen is positive for tricyclics and was it as a pains. It is unclear if polypharmacy could have contributed to his presentation. We will need to address this once he is more awake and able to participate in a conversation. 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 We will place him on thiamine and resume his home medications when appropriate. (6) Alcohol abuse Conclusion/Plan: His alcohol level is greater than [address]. [address] him on a banana bag and monitor for evidence of withdrawal. - Lab Results Lab results reviewed: Yes Fish Bones: 12/13/20 13:05 12/13/20 13:05 - Diagnostic Imaging Results Diagnostic Imaging Results: positive: Final report reviewed - EKG Results EKG Interpreted Independently: Yes EKG Findings: EKG reveals ST elevations in the inferior leads although this is quite minimal. This does not appear to be ischemia. This is similar to his prior EKG although the elevations are slightly more prominent today. Core Measures - Anticipated LOS I expect patient to be DC'd or transferred within 96 hours.: Yes - Issues Hospital Issues and Management Plan: 55-year-old male presents with being found unresponsive at home concerns for potential cardiac arrest although this is not definitive. He will be placed in the ICU for monitoring of his neuro status with hope of extubating tomorrow. - DVT/VTE - Prophylaxis VTE/DVT Device ordered at admit?: Yes VTE/DVT Prophylaxis med ordered at admit?: Yes
[2020-12-13] MEDS ORDERED: LACTATED RINGERS 1,000 ML IV SCH (16:00)
[2020-12-13] MEDS ORDERED: PIPERACILLIN/TAZOBACTAM 3.375 GM in SODIUM CHLORIDE 0.9% MINIBAG 100 ML IV SCH (16:30)
[2020-12-13 16:33] LABS: B. PARAPERTUSSIS- RESP PCR PAN NOT DETECTED; B. PERTUSSIS- RESP PCR PANEL NOT DETECTED; C. PNEUMONIAE- RESP PCR PANEL NOT DETECTED; CORONAVIRUS 229E-RESP PCR NOT DETECTED; CORONAVIRUS HKU1-RESP PCR NOT DETECTED; CORONAVIRUS NL63-RESP PCR NOT DETECTED; CORONAVIRUS OC43-RESP PCR NOT DETECTED; HUMAN METAPNEUMOVIRUS NOT DETECTED; INFLUENZA A- RESP PCR PANEL NOT DETECTED; INFLUENZA B - RESP PCR PANEL NOT DETECTED; M. PNEUMONIAE- RESP PCR PANEL NOT DETECTED; PARAINFLUENZA VIRUS 1 NOT DETECTED; PARAINFLUENZA VIRUS 2 NOT DETECTED; PARAINFLUENZA VIRUS 3 NOT DETECTED; PARAINFLUENZA VIRUS 4 NOT DETECTED; RHINOVIRUS/ENTEROVIRUS NOT DETECTED; RSV- RESP PCR PANEL NOT DETECTED; SARS-CoV-2 -RESP PCR PANEL NOT DETECTED
[2020-12-13] MEDS: PROPOFOL 500 MG/50 ML 500 MG/50 ML VIAL IV SCH ×4 (17:25→23:03)
[2020-12-13] MEDS: SODIUM CHLORIDE FLUSH 0.9% 10 ML SYRINGE IVP SCH ×2 (17:45→21:44)
[2020-12-13] MEDS: MULTIVITAMIN 10 ML, FOLIC ACID INJ 1 MG, THIAMINE INJ 100 MG, MAGNESIUM SULFATE 2 GM in... IV SCH ×5 (17:46)
[2020-12-13] MEDS ORDERED: LACTATED RINGERS 1,000 ML IV ONE (19:07)
[2020-12-13] MEDS: MIDAZOLAM DRIP 50 MG/100 ML BAG IV SCH (21:02)
[2020-12-13] MEDS: PIPERACILLIN/TAZOBACTAM 3.375 GM in SODIUM CHLORIDE 0.9% MINIBAG 100 ML IV SCH (21:35)
[2020-12-13] MEDS: SODIUM CHLORIDE FLUSH 0.9% 10 ML SYRINGE IVP PRN (21:44)
[2020-12-14] MEDS: CHLORHEXIDINE GLUCONATE 15 ML UDC PO SCH ×3 (00:56→21:26)
[2020-12-14] MEDS: PROPOFOL 500 MG/50 ML 500 MG/50 ML VIAL IV SCH ×3 (00:57→05:24)
[2020-12-14] MEDS: MIDAZOLAM DRIP 50 MG/100 ML BAG IV SCH ×2 (01:33→06:11)
[2020-12-14 05:08] LABS: BASOPHILS % (AUTO) 0.4 %; EOSINOPHILS # (AUTO) 0.3 10^3/uL (0.0-0.7); EOSINOPHILS % (AUTO) 3.5 %; HCT - HEMATOCRIT 33.7 % (42.0-52.0); HGB - HEMOGLOBIN 11.6 g/dL (14.0-18.0); LYMPHOCYTES # (AUTO) 1.3 10^3/uL (1.5-3.5); LYMPHOCYTES % (AUTO) 16.1 %; MEAN CORPUSCULAR HGB CONC 34.4 g/dL (32.0-36.0); MEAN CORPUSCULAR VOLUME 95.7 fL (80.0-94.0); MEAN PLATELET VOLUME 9.1 fL (7.4-11.4); MONOCYTES # (AUTO) 0.5 10^3/uL (0.0-1.0); MONOCYTES % (AUTO) 6.6 %; NEUTROPHILS # (AUTO) 5.7 10^3/uL (1.5-6.6); NEUTROPHILS % (AUTO) 73.1 %; PLT - PLATELET COUNT 235 10^3/uL (130-450); RED BLOOD COUNT 3.52 10^6/uL (4.70-6.10); RED CELL DISTRIBUTION WIDTH 13.7 % (12.0-15.0); WHITE BLOOD COUNT 7.8 x10^3/uL (4.8-10.8)
[2020-12-14 05:18] LABS: CALCIUM 8.9 mg/dL (8.5-10.3); MAGNESIUM 2.2 mg/dL (1.7-2.8); POTASSIUM 3.8 mmol/L (3.5-5.0)
[2020-12-14] MEDS: PIPERACILLIN/TAZOBACTAM 3.375 GM in SODIUM CHLORIDE 0.9% MINIBAG 100 ML IV SCH (05:32)
[2020-12-14] MEDS: SODIUM CHLORIDE FLUSH 0.9% 10 ML SYRINGE IVP PRN (06:12)
[2020-12-14] MEDS ORDERED: PANTOPRAZOLE 40 MG VIAL IVP SCH (07:00)
--- NOTE | 2020-12-14 08:09 | PROVIDER PROGRESS NOTE ---
Subjective - Prog Note Date Prog Note Date: 12/14/20 - Subjective Subjective: He was extubated this morning. He reports feeling well today. He murmurs were happened yesterday afternoon. He states his in-laws are visiting and he went to go to the bathroom when all of a sudden he collapsed. He does not recall feeling sick prior to this or over the past few days. No chest pain or shortness of breath. He was hoping he could go home tonight but understands that he needs to remain hospitalized. He reports feeling hungry. Current Medications - Current Medications Current Medications: Active Medications Acetaminophen (Acetaminophen 325 Mg Tablet) 650 mg PO Q4HR PRN PRN Reason: Pain 1 to 4 Amoxicillin/Clavulanate Potassium (Amox/Clav 875 Mg/125 Mg Tablet) 1 tab PO BID [facility] [place] Chlorhexidine Gluconate (Chlorhexidine Gluconate 15 Ml Udc) 15 ml PO BID [facility] [place] Last Admin: 12/14/20 09:40 Dose: Not Given Documented by: Doxepin HCl (Doxepin 25 Mg Capsule) 25 mg PO QPM [facility] [place] Enoxaparin Sodium (Enoxaparin 40 Mg/0.4 Ml Syringe) 40 mg SUBQ DAILY [facility] [place] Last Admin: 12/14/20 09:46 Dose: 40 mg Documented by: Folic Acid (Folic Acid 1 Mg Tablet) 1 mg PO DAILY [facility] [place] Furosemide (Furosemide 40 Mg Tablet) 40 mg PO DAILY [facility] [place] Gabapentin (Gabapentin 400 Mg Capsule) 800 mg PO TID [facility] [place] Multivitamins 10 ml/ Folic Acid 1 mg/ Thiamine HCl 100 mg / Magnesium Sulfate 2 gm/Sodium Chloride 1,015.2 mls @ 100 mls/hr IV DAILY [facility] Stop: 12/14/20 14:00 Last Infusion: 12/14/20 12:00 Dose: 100 mls/hr Documented by: Multivitamins (Multivitamin Tablet) 1 tab PO DAILYWM [facility] [place] Ondansetron HCl (Ondansetron 4 Mg/2 Ml Vial) 4 mg IVP Q6HR PRN PRN Reason: Nausea / Vomiting Pantoprazole Sodium (Pantoprazole 40 Mg Tablet) 40 mg PO DAILY [facility] [place] Propranolol HCl (Propranolol 10 Mg Tablet) 15 mg PO BID [facility] [place] Quetiapine Fumarate (Quetiapine 25 Mg Tablet) 50 mg PO DAILY [facility] [place] Sodium Chloride (Sodium Chloride Flush 0.9% 10 Ml Syringe) 10 ml IVP 0100,0900,1700 [facility] [place] Last Admin: 12/14/20 08:32 Dose: 10 ml Documented by: Sodium Chloride (Sodium Chloride Flush 0.9% 10 Ml Syringe) 10 ml IVP PRN PRN PRN Reason: NEEDED PER PROVIDER ORDERS Last Admin: 12/14/20 06:12 Dose: 10 ml Documented by: Spironolactone (Spironolactone 25 Mg Tablet) 100 mg PO DAILY [facility] Thiamine HCl (Thiamine 100 Mg Tablet) 100 mg PO DAILY [facility] Furosemide [Lasix] 40 mg PO DAILY 08/19/19 Cholecalciferol [Vitamin D3] 1,000 units PO DAILY 01/17/20 Multivitamin W/Minerals [Theragran M] 1 each PO DAILY 01/17/20 Propranolol [Inderal] 15 mg PO BID 01/17/20 Pantoprazole Sodium 40 mg PO DAILY 06/14/20 Doxepin [SINEquan] 25 mg PO QPM 11/23/20 Gabapentin [Neurontin] 800 mg PO TID 11/23/20 QUEtiapine [SEROquel] 50 mg PO DAILY 11/23/20 Folic Acid/Vit B Complex and C [B-Complex with Vit C Tablet] 1 tab PO DAILY 11/24/20 Spironolactone [Aldactone] 100 mg PO DAILY 12/13/20 traMADol [Ultram] 50 mg PO Q6HR PRN 12/13/20 Objective - Vital Signs/Intake & Output Reviewed Vital Signs: Yes Vital Signs: Vital Signs Temp Pulse Pulse Resp BP Pulse Ox 12/14/20 07:16 89 12/14/20 06:00 36.6 C 88 16 102/75 100 12/14/20 05:55 87 Intake & Output: Intake & Output 12/11/20 12/12/20 12/13/20 12/14/20 23:59 23:59 23:59 23:59 Intake Total 3561.842 1241.611 Output Total 1650 1005 Balance 1911.842 236.611 - Objective General Appearance: positive: No acute distress, Alert Eyes Bilateral: positive: Normal inspection, Conjunctivae nml ENT: positive: ENT inspection nml Neck: positive: Nml inspection Respiratory: positive: No respiratory distress. negative: Wheezes, Rales Cardiovascular: positive: Regular rate & rhythm, No murmur. negative: Tachycardia Abdomen: positive: Non-tender, No distention. negative: Tenderness, Guarding, Rebound Skin: positive: Warm, Dry Extremities: positive: No pedal edema Neurologic/Psychiatric: positive: Motor nml. negative: Disoriented to person, Disoriented to place, Disoriented to time - Lab Results Fish Bones: 12/14/20 04:20 12/14/20 04:20 Other Labs: Lab Results x24hrs 12/14/20 12/14/20 12/13/20 Range/Units 04:20 04:20 18:01 WBC 7.8 (4.8-10.8) x10^3/uL RBC 3.52 L (4.70-6.10) 10^6/uL Hgb 11.6 L (14.0-18.0) g/dL Hct 33.7 L (42.0-52.0) % MCV 95.7 H (80.0-94.0) fL MCH 33.0 H (27.0-31.0) pg MCHC 34.4 (32.0-36.0) g/dL RDW 13.7 (12.0-15.0) % Plt Count 235 (130-450) 10^3/uL MPV 9.1 (7.4-11.4) fL Neut # (Auto) 5.7 (1.5-6.6) 10^3/uL Lymph # (Auto) 1.3 L (1.5-3.5) 10^3/uL Quay # (Auto) 0.5 (0.0-1.0) 10^3/uL Eos # (Auto) 0.3 (0.0-0.7) 10^3/uL Baso # (Auto) 0.0 (0.0-0.1) 10^3/uL Absolute Nucleated RBC 0.00 x10^3/uL Nucleated RBC % 0.0 /100WBC PT (9.9-12.6) secs INR (0.8-1.2) Bld Gas Analysis Time Sample Site ABG pH (7.35-7.45) ABG pCO2 (34-45) mmHg ABG pO2 (80-100) mmHg ABG HCO3 (22.0-26.0) mmol/L ABG Total CO2 (21.0-29.0) MMOL/L ABG O2 Saturation (94-98) % ABG Base Excess (-2.0-3.0) mmol/L Arian Test VBG pH (7.31-7.41) VBG pCO2 (41-51) mmHg VBG pO2 (25-47) mmHg VBG HCO3 (23-28) mmol/L VBG Total CO2 (24-29) mmol/L VBG O2 Saturation (60-80) % VBG Base Excess (-2 - +2) mmol/L Respiration Rate b/min O2 Delivery Device Vent Mode FiO2 Tidal Volume mL PEEP cmH2O Sodium 138 (135-145) mmol/L Potassium 3.8 (3.5-5.0) mmol/L Chloride 101 (101-111) mmol/L Carbon Dioxide 23 (21-32) mmol/L Anion Gap 14.0 H (6-13) BUN 22 H (6-20) mg/dL Creatinine 1.0 (0.6-1.2) mg/dL Estimated GFR (MDRD) 77 L (>89) Glucose 101 H (70-100) mg/dL Lactic Acid 2.6 H (0.5-2.2) mmol/L Calcium 8.9 (8.5-10.3) mg/dL Phosphorus 3.0 (2.5-4.6) mg/dL Magnesium 2.2 (1.7-2.8) mg/dL Total Bilirubin (0.2-1.0) mg/dL AST (10-42) IU/L ALT (10-60) IU/L Alkaline Phosphatase (42-121) IU/L Ammonia (7-35) umol/L Total Creatine Kinase (22-269) IU/L Troponin I High Sens (2.3-19.7) ng/L B-Natriuretic Peptide (5-100) pg/mL Total Protein (6.7-8.2) g/dL Albumin (3.2-5.5) g/dL Globulin (2.1-4.2) g/dL Albumin/Globulin Ratio (1.0-2.2) Lipase (22-51) U/L Urine Color Urine Clarity (CLEAR) Urine pH (5.0-7.5) PH Ur Specific [place] (1.002-1.030) Urine Protein (NEGATIVE) mg/dL Urine Glucose (UA) (NEGATIVE) mg/dL Urine Ketones (NEGATIVE) mg/dL Urine Occult Blood (NEGATIVE) Urine Nitrite (NEGATIVE) Urine Bilirubin (NEGATIVE) Urine Urobilinogen (NORMAL) E.U./dL Ur Leukocyte Esterase (NEGATIVE) Ur Microscopic Review Urine Culture Comments Nasal Adenovirus (PCR) Nasal B. parapertussis DNA (PCR) Nasal Coronavir 229E PCR Nasal Coronavir HKU1 PCR Nasal Coronavir NL63 PCR Nasal Coronavir OC43 PCR Nasal Enterovir/Rhinovir PCR Nasal Influenza B PCR Nasal Influenza A PCR Nasal Parainfluen 1 PCR Nasal Parainfluen 2 PCR Nasal Parainfluen 3 PCR Nasal Parainfluen 4 PCR Nasal RSV (PCR) Nasal Screen MRSA (PCR) (NEGATIVE) Nasal B.pertussis DNA PCR Nasal C.pneumoniae (PCR) [place] Human Metapneumo PCR Nasal M.pneumoniae (PCR) Nasal SARS-CoV-2 (PCR) Salicylates mg/dL Urine Opiates Screen (NEGATIVE) Ur Oxycodone Screen (NEGATIVE) Urine Methadone Screen (NEGATIVE) Ur Propoxyphene Screen (NEGATIVE) Acetaminophen (10-30) ug/mL Ur Barbiturates Screen (NEGATIVE) Ur Tricyclics Screen (NEGATIVE) Ur Phencyclidine Scrn (NEGATIVE) Ur Amphetamine Screen (NEGATIVE) U Methamphetamines Scrn (NEGATIVE) U Benzodiazepines Scrn (NEGATIVE) Urine Cocaine Screen (NEGATIVE) U Cannabinoids Screen (NEGATIVE) Ethyl Alcohol mg/dL 12/13/20 12/13/20 12/13/20 Range/Units 18:01 16:51 15:28 WBC (4.8-10.8) x10^3/uL RBC (4.70-6.10) 10^6/uL Hgb (14.0-18.0) g/dL Hct (42.0-52.0) % MCV (80.0-94.0) fL MCH (27.0-31.0) pg MCHC (32.0-36.0) g/dL RDW (12.0-15.0) % Plt Count (130-450) 10^3/uL MPV (7.4-11.4) fL Neut # (Auto) (1.5-6.6) 10^3/uL Lymph # (Auto) (1.5-3.5) 10^3/uL Quay # (Auto) (0.0-1.0) 10^3/uL Eos # (Auto) (0.0-0.7) 10^3/uL Baso # (Auto) (0.0-0.1) 10^3/uL Absolute Nucleated RBC x10^3/uL Nucleated RBC % /100WBC PT (9.9-12.6) secs INR (0.8-1.2) Bld Gas Analysis Time Sample Site ABG pH (7.35-7.45) ABG pCO2 (34-45) mmHg ABG pO2 (80-100) mmHg ABG HCO3 (22.0-26.0) mmol/L ABG Total CO2 (21.0-29.0) MMOL/L ABG O2 Saturation (94-98) % ABG Base Excess (-2.0-3.0) mmol/L Arian Test VBG pH (7.31-7.41) VBG pCO2 (41-51) mmHg VBG pO2 (25-47) mmHg VBG HCO3 (23-28) mmol/L VBG Total CO2 (24-29) mmol/L VBG O2 Saturation (60-80) % VBG Base Excess (-2 - +2) mmol/L Respiration Rate b/min O2 Delivery Device Vent Mode FiO2 Tidal Volume mL PEEP cmH2O Sodium (135-145) mmol/L Potassium (3.5-5.0) mmol/L Chloride (101-111) mmol/L Carbon Dioxide (21-32) mmol/L Anion Gap (6-13) BUN (6-20) mg/dL Creatinine (0.6-1.2) mg/dL Estimated GFR (MDRD) (>89) Glucose (70-100) mg/dL Lactic Acid (0.5-2.2) mmol/L Calcium (8.5-10.3) mg/dL Phosphorus (2.5-4.6) mg/dL Magnesium (1.7-2.8) mg/dL Total Bilirubin (0.2-1.0) mg/dL AST (10-42) IU/L ALT (10-60) IU/L Alkaline Phosphatase (42-121) IU/L Ammonia (7-35) umol/L Total Creatine Kinase (22-269) IU/L Troponin I High Sens 5.3 (2.3-19.7) ng/L B-Natriuretic Peptide (5-100) pg/mL Total Protein (6.7-8.2) g/dL Albumin (3.2-5.5) g/dL Globulin (2.1-4.2) g/dL Albumin/Globulin Ratio (1.0-2.2) Lipase (22-51) U/L Urine Color Urine Clarity (CLEAR) Urine pH (5.0-7.5) PH Ur Specific [place] (1.002-1.030) Urine Protein (NEGATIVE) mg/dL Urine Glucose (UA) (NEGATIVE) mg/dL Urine Ketones (NEGATIVE) mg/dL Urine Occult Blood (NEGATIVE) Urine Nitrite (NEGATIVE) Urine Bilirubin (NEGATIVE) Urine Urobilinogen (NORMAL) E.U./dL Ur Leukocyte Esterase (NEGATIVE) Ur Microscopic Review Urine Culture Comments Nasal Adenovirus (PCR) NOT DETECTED Nasal B. parapertussis DNA (PCR) NOT DETECTED Nasal Coronavir 229E PCR NOT DETECTED Nasal Coronavir HKU1 PCR NOT DETECTED Nasal Coronavir NL63 PCR NOT DETECTED Nasal Coronavir OC43 PCR NOT DETECTED Nasal Enterovir/Rhinovir PCR NOT DETECTED Nasal Influenza B PCR NOT DETECTED Nasal Influenza A PCR NOT DETECTED Nasal Parainfluen 1 PCR NOT DETECTED Nasal Parainfluen 2 PCR NOT DETECTED Nasal Parainfluen 3 PCR NOT DETECTED Nasal Parainfluen 4 PCR NOT DETECTED Nasal RSV (PCR) NOT DETECTED Nasal Screen MRSA (PCR) NEGATIVE (NEGATIVE) Nasal B.pertussis DNA PCR NOT DETECTED Nasal C.pneumoniae (PCR) NOT DETECTED L[place] Human Metapneumo PCR NOT DETECTED Nasal M.pneumoniae (PCR) NOT DETECTED Nasal SARS-CoV-2 (PCR) NOT DETECTED Salicylates mg/dL Urine Opiates Screen (NEGATIVE) Ur Oxycodone Screen (NEGATIVE) Urine Methadone Screen (NEGATIVE) Ur Propoxyphene Screen (NEGATIVE) Acetaminophen (10-30) ug/mL Ur Barbiturates Screen (NEGATIVE) Ur Tricyclics Screen (NEGATIVE) Ur Phencyclidine Scrn (NEGATIVE) Ur Amphetamine Screen (NEGATIVE) U Methamphetamines Scrn (NEGATIVE) U Benzodiazepines Scrn (NEGATIVE) Urine Cocaine Screen (NEGATIVE) U Cannabinoids Screen (NEGATIVE) Ethyl Alcohol mg/dL 12/13/20 12/13/20 12/13/20 Range/Units 15:25 15:08 14:17 WBC (4.8-10.8) x10^3/uL RBC (4.70-6.10) 10^6/uL Hgb (14.0-18.0) g/dL Hct (42.0-52.0) % MCV (80.0-94.0) fL MCH (27.0-31.0) pg MCHC (32.0-36.0) g/dL RDW (12.0-15.0) % Plt Count (130-450) 10^3/uL MPV (7.4-11.4) fL Neut # (Auto) (1.5-6.6) 10^3/uL Lymph # (Auto) (1.5-3.5) 10^3/uL Quay # (Auto) (0.0-1.0) 10^3/uL Eos # (Auto) (0.0-0.7) 10^3/uL Baso # (Auto) (0.0-0.1) 10^3/uL Absolute Nucleated RBC x10^3/uL Nucleated RBC % /100WBC PT (9.9-12.6) secs INR (0.8-1.2) Bld Gas Analysis Time 1529 Sample Site RIGHT RADIAL ABG pH 7.44 (7.35-7.45) ABG pCO2 32 L (34-45) mmHg ABG pO2 51 L* (80-100) mmHg ABG HCO3 21.4 L (22.0-26.0) mmol/L ABG Total CO2 22.4 (21.0-29.0) MMOL/L ABG O2 Saturation 88 L (94-98) % ABG Base Excess -2.0 (-2.0-3.0) mmol/L Arian Test POSITIVE VBG pH 7.444 H (7.31-7.41) VBG pCO2 30.5 L (41-51) mmHg VBG pO2 69.2 H (25-47) mmHg VBG HCO3 20.4 L (23-28) mmol/L VBG Total CO2 21.4 L (24-29) mmol/L VBG O2 Saturation 94.5 H (60-80) % VBG Base Excess -2.6 L (-2 - +2) mmol/L Respiration Rate 16 b/min O2 Delivery Device VENTILATOR Vent Mode ASSIST/CONTROL FiO2 40.00 Tidal Volume 550 mL PEEP 8 cmH2O Sodium (135-145) mmol/L Potassium (3.5-5.0) mmol/L Chloride (101-111) mmol/L Carbon Dioxide (21-32) mmol/L Anion Gap (6-13) BUN (6-20) mg/dL Creatinine (0.6-1.2) mg/dL Estimated GFR (MDRD) (>89) Glucose (70-100) mg/dL Lactic Acid (0.5-2.2) mmol/L Calcium (8.5-10.3) mg/dL Phosphorus (2.5-4.6) mg/dL Magnesium (1.7-2.8) mg/dL Total Bilirubin (0.2-1.0) mg/dL AST (10-42) IU/L ALT (10-60) IU/L Alkaline Phosphatase (42-121) IU/L Ammonia (7-35) umol/L Total Creatine Kinase (22-269) IU/L Troponin I High Sens 3.6 (2.3-19.7) ng/L B-Natriuretic Peptide (5-100) pg/mL Total Protein (6.7-8.2) g/dL Albumin (3.2-5.5) g/dL Globulin (2.1-4.2) g/dL Albumin/Globulin Ratio (1.0-2.2) Lipase (22-51) U/L Urine Color Urine Clarity (CLEAR) Urine pH (5.0-7.5) PH Ur Specific [place] (1.002-1.030) Urine Protein (NEGATIVE) mg/dL Urine Glucose (UA) (NEGATIVE) mg/dL Urine Ketones (NEGATIVE) mg/dL Urine Occult Blood (NEGATIVE) Urine Nitrite (NEGATIVE) Urine Bilirubin (NEGATIVE) Urine Urobilinogen (NORMAL) E.U./dL Ur Leukocyte Esterase (NEGATIVE) Ur Microscopic Review Urine Culture Comments Nasal Adenovirus (PCR) Nasal B. parapertussis DNA (PCR) Nasal Coronavir 229E PCR Nasal Coronavir HKU1 PCR Nasal Coronavir NL63 PCR Nasal Coronavir OC43 PCR Nasal Enterovir/Rhinovir PCR Nasal Influenza B PCR Nasal Influenza A PCR Nasal Parainfluen 1 PCR Nasal Parainfluen 2 PCR Nasal Parainfluen 3 PCR Nasal Parainfluen 4 PCR Nasal RSV (PCR) Nasal Screen MRSA (PCR) (NEGATIVE) Nasal B.pertussis DNA PCR Nasal C.pneumoniae (PCR) [place] Human Metapneumo PCR Nasal M.pneumoniae (PCR) Nasal SARS-CoV-2 (PCR) Salicylates mg/dL Urine Opiates Screen (NEGATIVE) Ur Oxycodone Screen (NEGATIVE) Urine Methadone Screen (NEGATIVE) Ur Propoxyphene Screen (NEGATIVE) Acetaminophen (10-30) ug/mL Ur Barbiturates Screen (NEGATIVE) Ur Tricyclics Screen (NEGATIVE) Ur Phencyclidine Scrn (NEGATIVE) Ur Amphetamine Screen (NEGATIVE) U Methamphetamines Scrn (NEGATIVE) U Benzodiazepines Scrn (NEGATIVE) Urine Cocaine Screen (NEGATIVE) U Cannabinoids Screen (NEGATIVE) Ethyl Alcohol mg/dL 12/13/20 12/13/20 12/13/20 Range/Units 14:17 14:17 14:05 WBC (4.8-10.8) x10^3/uL RBC (4.70-6.10) 10^6/uL Hgb (14.0-18.0) g/dL Hct (42.0-52.0) % MCV (80.0-94.0) fL MCH (27.0-31.0) pg MCHC (32.0-36.0) g/dL RDW (12.0-15.0) % Plt Count (130-450) 10^3/uL MPV (7.4-11.4) fL Neut # (Auto) (1.5-6.6) 10^3/uL Lymph # (Auto) (1.5-3.5) 10^3/uL Quay # (Auto) (0.0-1.0) 10^3/uL Eos # (Auto) (0.0-0.7) 10^3/uL Baso # (Auto) (0.0-0.1) 10^3/uL Absolute Nucleated RBC x10^3/uL Nucleated RBC % /100WBC PT (9.9-12.6) secs INR (0.8-1.2) Bld Gas Analysis Time Sample Site ABG pH (7.35-7.45) ABG pCO2 (34-45) mmHg ABG pO2 (80-100) mmHg ABG HCO3 (22.0-26.0) mmol/L ABG Total CO2 (21.0-29.0) MMOL/L ABG O2 Saturation (94-98) % ABG Base Excess (-2.0-3.0) mmol/L Arian Test VBG pH (7.31-7.41) VBG pCO2 (41-51) mmHg VBG pO2 (25-47) mmHg VBG HCO3 (23-28) mmol/L VBG Total CO2 (24-29) mmol/L VBG O2 Saturation (60-80) % VBG Base Excess (-2 - +2) mmol/L Respiration Rate b/min O2 Delivery Device Vent Mode FiO2 Tidal Volume mL PEEP cmH2O Sodium (135-145) mmol/L Potassium (3.5-5.0) mmol/L Chloride (101-111) mmol/L Carbon Dioxide (21-32) mmol/L Anion Gap (6-13) BUN (6-20) mg/dL Creatinine (0.6-1.2) mg/dL Estimated GFR (MDRD) (>89) Glucose (70-100) mg/dL Lactic Acid 3.0 H* (0.5-2.2) mmol/L Calcium (8.5-10.3) mg/dL Phosphorus (2.5-4.6) mg/dL Magnesium (1.7-2.8) mg/dL Total Bilirubin (0.2-1.0) mg/dL AST (10-42) IU/L ALT (10-60) IU/L Alkaline Phosphatase (42-121) IU/L Ammonia 16.8 (7-35) umol/L Total Creatine Kinase (22-269) IU/L Troponin I High Sens (2.3-19.7) ng/L B-Natriuretic Peptide (5-100) pg/mL Total Protein (6.7-8.2) g/dL Albumin (3.2-5.5) g/dL Globulin (2.1-4.2) g/dL Albumin/Globulin Ratio (1.0-2.2) Lipase (22-51) U/L Urine Color YELLOW Urine Clarity CLEAR (CLEAR) Urine pH 6.0 (5.0-7.5) PH Ur Specific [place] 1.010 (1.002-1.030) Urine Protein NEGATIVE (NEGATIVE) mg/dL Urine Glucose (UA) NEGATIVE (NEGATIVE) mg/dL Urine Ketones NEGATIVE (NEGATIVE) mg/dL Urine Occult Blood NEGATIVE (NEGATIVE) Urine Nitrite NEGATIVE (NEGATIVE) Urine Bilirubin NEGATIVE (NEGATIVE) Urine Urobilinogen 0.2 (NORMAL) (NORMAL) E.U./dL Ur Leukocyte Esterase NEGATIVE (NEGATIVE) Ur Microscopic Review NOT INDICATED Urine Culture Comments NOT INDICATED Nasal Adenovirus (PCR) Nasal B. parapertussis DNA (PCR) Nasal Coronavir 229E PCR Nasal Coronavir HKU1 PCR Nasal Coronavir NL63 PCR Nasal Coronavir OC43 PCR Nasal Enterovir/Rhinovir PCR Nasal Influenza B PCR Nasal Influenza A PCR Nasal Parainfluen 1 PCR Nasal Parainfluen 2 PCR Nasal Parainfluen 3 PCR Nasal Parainfluen 4 PCR Nasal RSV (PCR) Nasal Screen MRSA (PCR) (NEGATIVE) Nasal B.pertussis DNA PCR Nasal C.pneumoniae (PCR) [place] Human Metapneumo PCR Nasal M.pneumoniae (PCR) Nasal SARS-CoV-2 (PCR) Salicylates mg/dL Urine Opiates Screen NEGATIVE (NEGATIVE) Ur Oxycodone Screen NEGATIVE (NEGATIVE) Urine Methadone Screen NEGATIVE (NEGATIVE) Ur Propoxyphene Screen NEGATIVE (NEGATIVE) Acetaminophen (10-30) ug/mL Ur Barbiturates Screen NEGATIVE (NEGATIVE) Ur Tricyclics Screen POSITIVE H (NEGATIVE) Ur Phencyclidine Scrn NEGATIVE (NEGATIVE) Ur Amphetamine Screen NEGATIVE (NEGATIVE) U Methamphetamines Scrn NEGATIVE (NEGATIVE) U Benzodiazepines Scrn POSITIVE H (NEGATIVE) Urine Cocaine Screen NEGATIVE (NEGATIVE) U Cannabinoids Screen NEGATIVE (NEGATIVE) Ethyl Alcohol mg/dL 12/13/20 12/13/20 12/13/20 Range/Units 13:05 13:05 13:05 WBC (4.8-10.8) x10^3/uL RBC (4.70-6.10) 10^6/uL Hgb (14.0-18.0) g/dL Hct (42.0-52.0) % MCV (80.0-94.0) fL MCH (27.0-31.0) pg MCHC (32.0-36.0) g/dL RDW (12.0-15.0) % Plt Count (130-450) 10^3/uL MPV (7.4-11.4) fL Neut # (Auto) (1.5-6.6) 10^3/uL Lymph # (Auto) (1.5-3.5) 10^3/uL [place]ay # (Auto) (0.0-1.0) 10^3/uL Eos # (Auto) (0.0-0.7) 10^3/uL Baso # (Auto) (0.0-0.1) 10^3/uL Absolute Nucleated RBC x10^3/uL Nucleated RBC % /100WBC PT (9.9-12.6) secs INR (0.8-1.2) Bld Gas Analysis Time Sample Site ABG pH (7.35-7.45) ABG pCO2 (34-45) mmHg ABG pO2 (80-100) mmHg ABG HCO3 (22.0-26.0) mmol/L ABG Total CO2 (21.0-29.0) MMOL/L ABG O2 Saturation (94-98) % ABG Base Excess (-2.0-3.0) mmol/L Arian Test VBG pH (7.31-7.41) VBG pCO2 (41-51) mmHg VBG pO2 (25-47) mmHg VBG HCO3 (23-28) mmol/L VBG Total CO2 (24-29) mmol/L VBG O2 Saturation (60-80) % VBG Base Excess (-2 - +2) mmol/L Respiration Rate b/min O2 Delivery Device Vent Mode FiO2 Tidal Volume mL PEEP cmH2O Sodium 136 (135-145) mmol/L Potassium 4.5 (3.5-5.0) mmol/L Chloride 100 L (101-111) mmol/L Carbon Dioxide 22 (21-32) mmol/L Anion Gap 14.0 H (6-13) BUN 30 H (6-20) mg/dL Creatinine 1.1 (0.6-1.2) mg/dL Estimated GFR (MDRD) 69 L (>89) Glucose 89 (70-100) mg/dL Lactic Acid (0.5-2.2) mmol/L Calcium 9.1 (8.5-10.3) mg/dL Phosphorus 4.3 (2.5-4.6) mg/dL Magnesium 2.1 (1.7-2.8) mg/dL Total Bilirubin 0.6 (0.2-1.0) mg/dL AST 29 (10-42) IU/L ALT 14 (10-60) IU/L Alkaline Phosphatase 89 (42-121) IU/L Ammonia (7-35) umol/L Total Creatine Kinase 156 (22-269) IU/L Troponin I High Sens < 2.3 L (2.3-19.7) ng/L B-Natriuretic Peptide 39 (5-100) pg/mL Total Protein 7.5 (6.7-8.2) g/dL Albumin 4.1 (3.2-5.5) g/dL Globulin 3.4 (2.1-4.2) g/dL Albumin/Globulin Ratio 1.2 (1.0-2.2) Lipase 17 L (22-51) U/L Urine Color Urine Clarity (CLEAR) Urine pH (5.0-7.5) PH Ur Specific [place] (1.002-1.030) Urine Protein (NEGATIVE) mg/dL Urine Glucose (UA) (NEGATIVE) mg/dL Urine Ketones (NEGATIVE) mg/dL Urine Occult Blood (NEGATIVE) Urine Nitrite (NEGATIVE) Urine Bilirubin (NEGATIVE) Urine Urobilinogen (NORMAL) E.U./dL Ur Leukocyte Esterase (NEGATIVE) Ur Microscopic Review Urine Culture Comments Nasal Adenovirus (PCR) Nasal B. parapertussis DNA (PCR) Nasal Coronavir 229E PCR Nasal Coronavir HKU1 PCR Nasal Coronavir NL63 PCR Nasal Coronavir OC43 PCR Nasal Enterovir/Rhinovir PCR Nasal Influenza B PCR Nasal Influenza A PCR Nasal Parainfluen 1 PCR Nasal Parainfluen 2 PCR Nasal Parainfluen 3 PCR Nasal Parainfluen 4 PCR Nasal RSV (PCR) Nasal Screen MRSA (PCR) (NEGATIVE) Nasal B.pertussis DNA PCR Nasal C.pneumoniae (PCR) [place] Human Metapneumo PCR Nasal M.pneumoniae (PCR) Nasal SARS-CoV-2 (PCR) Salicylates < 6.0 mg/dL Urine Opiates Screen (NEGATIVE) Ur Oxycodone Screen (NEGATIVE) Urine Methadone Screen (NEGATIVE) Ur Propoxyphene Screen (NEGATIVE) Acetaminophen 11 (10-30) ug/mL Ur Barbiturates Screen (NEGATIVE) Ur Tricyclics Screen (NEGATIVE) Ur Phencyclidine Scrn (NEGATIVE) Ur Amphetamine Screen (NEGATIVE) U Methamphetamines Scrn (NEGATIVE) U Benzodiazepines Scrn (NEGATIVE) Urine Cocaine Screen (NEGATIVE) U Cannabinoids Screen (NEGATIVE) Ethyl Alcohol 222.6 mg/dL 12/13/20 12/13/20 Range/Units 13:05 13:05 WBC 4.7 L (4.8-10.8) x10^3/uL RBC 3.76 L (4.70-6.10) 10^6/uL Hgb 12.7 L (14.0-18.0) g/dL Hct 37.0 L (42.0-52.0) % MCV 98.4 H (80.0-94.0) fL MCH 33.8 H (27.0-31.0) pg MCHC 34.3 (32.0-36.0) g/dL RDW 13.3 (12.0-15.0) % Plt Count 256 (130-450) 10^3/uL MPV 9.1 (7.4-11.4) fL Neut # (Auto) 2.1 (1.5-6.6) 10^3/uL Lymph # (Auto) 1.8 (1.5-3.5) 10^3/uL [place] # (Auto) 0.5 (0.0-1.0) 10^3/uL Eos # (Auto) 0.4 (0.0-0.7) 10^3/uL Baso # (Auto) 0.0 (0.0-0.1) 10^3/uL Absolute Nucleated RBC 0.00 x10^3/uL Nucleated RBC % 0.0 /100WBC PT 11.5 (9.9-12.6) secs INR 1.0 (0.8-1.2) Bld Gas Analysis Time Sample Site ABG pH (7.35-7.45) ABG pCO2 (34-45) mmHg ABG pO2 (80-100) mmHg ABG HCO3 (22.0-26.0) mmol/L ABG Total CO2 (21.0-29.0) MMOL/L ABG O2 Saturation (94-98) % ABG Base Excess (-2.0-3.0) mmol/L Arian Test VBG pH (7.31-7.41) VBG pCO2 (41-51) mmHg VBG pO2 (25-47) mmHg VBG HCO3 (23-28) mmol/L VBG Total CO2 (24-29) mmol/L VBG O2 Saturation (60-80) % VBG Base Excess (-2 - +2) mmol/L Respiration Rate b/min O2 Delivery Device Vent Mode FiO2 Tidal Volume mL PEEP cmH2O Sodium (135-145) mmol/L Potassium (3.5-5.0) mmol/L Chloride (101-111) mmol/L Carbon Dioxide (21-32) mmol/L Anion Gap (6-13) BUN (6-20) mg/dL Creatinine (0.6-1.2) mg/dL Estimated GFR (MDRD) (>89) Glucose (70-100) mg/dL Lactic Acid (0.5-2.2) mmol/L Calcium (8.5-10.3) mg/dL Phosphorus (2.5-4.6) mg/dL Magnesium (1.7-2.8) mg/dL Total Bilirubin (0.2-1.0) mg/dL AST (10-42) IU/L ALT (10-60) IU/L Alkaline Phosphatase (42-121) IU/L Ammonia (7-35) umol/L Total Creatine Kinase (22-269) IU/L Troponin I High Sens (2.3-19.7) ng/L B-Natriuretic Peptide (5-100) pg/mL Total Protein (6.7-8.2) g/dL Albumin (3.2-5.5) g/dL Globulin (2.1-4.2) g/dL Albumin/Globulin Ratio (1.0-2.2) Lipase (22-51) U/L Urine Color Urine Clarity (CLEAR) Urine pH (5.0-7.5) PH Ur Specific [place] (1.002-1.030) Urine Protein (NEGATIVE) mg/dL Urine Glucose (UA) (NEGATIVE) mg/dL Urine Ketones (NEGATIVE) mg/dL Urine Occult Blood (NEGATIVE) Urine Nitrite (NEGATIVE) Urine Bilirubin (NEGATIVE) Urine Urobilinogen (NORMAL) E.U./dL Ur Leukocyte Esterase (NEGATIVE) Ur Microscopic Review Urine Culture Comments Nasal Adenovirus (PCR) Nasal B. parapertussis DNA (PCR) Nasal Coronavir 229E PCR Nasal Coronavir HKU1 PCR Nasal Coronavir NL63 PCR Nasal Coronavir OC43 PCR Nasal Enterovir/Rhinovir PCR Nasal Influenza B PCR Nasal Influenza A PCR Nasal Parainfluen 1 PCR Nasal Parainfluen 2 PCR Nasal Parainfluen 3 PCR Nasal Parainfluen 4 PCR Nasal RSV (PCR) Nasal Screen MRSA (PCR) (NEGATIVE) Nasal B.pertussis DNA PCR Nasal C.pneumoniae (PCR) [place] Human Metapneumo PCR Nasal M.pneumoniae (PCR) Nasal SARS-CoV-2 (PCR) Salicylates mg/dL Urine Opiates Screen (NEGATIVE) Ur Oxycodone Screen (NEGATIVE) Urine Methadone Screen (NEGATIVE) Ur Propoxyphene Screen (NEGATIVE) Acetaminophen (10-30) ug/mL Ur Barbiturates Screen (NEGATIVE) Ur Tricyclics Screen (NEGATIVE) Ur Phencyclidine Scrn (NEGATIVE) Ur Amphetamine Screen (NEGATIVE) U Methamphetamines Scrn (NEGATIVE) U Benzodiazepines Scrn (NEGATIVE) Urine Cocaine Screen (NEGATIVE) U Cannabinoids Screen (NEGATIVE) Ethyl Alcohol mg/dL Assessment/Plan - Problem List (1) Unresponsive episode Impression: There was concern for potential cardiac arrest as he did have CPR and received a dose of epinephrine but I am not sure if no pulse was felt just due to low cardiac output or if he did have an arrest. Neurologically he is at his baseline. The etiology of this episode is not clear. His EKG does not reveal ischemia and a repeat one obtained today just shows a sinus rhythm. QTC is not prolonged. His troponins have all been within normal limits. An echocardiogram has been ordered and is pending. He has showed no evidence of arrhythmia on telemetry. We did discuss that he may potentially need an outpatient Holter monitor or Zio patch given you have a clear expiration for what happened. We will continue to monitor on telemetry and if he remains stable the plan will be to discharge tomorrow. (2) Aspiration pneumonia Impression: Imaging was concerning for aspiration pneumonia. We will switch him to oral Augmentin today. (3) Polypharmacy Impression: I do wonder if the event yesterday may have been related to his multiple sedatives at home. He was also intoxicated. We did discuss the importance of compliance and he denies any other substance use which is confirmed by his urine toxicology. 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 We will resume his home Lasix and spironolactone as well as Protonix. (5) Alcohol abuse Impression: We will monitor him for evidence of withdrawal. Continue Thiamine. (6) On mechanically assisted ventilation Impression: He was extubated successfully this morning.
[2020-12-14 08:27] LABS: ABG HCO3 23.3 mmol/L (22.0-26.0); ABG MODE OF VENTILATION CPAP; ABG OXYGEN SATURATION 98 % (94-98); ABG PO2 108 mmHg (80-100); ALLEN TEST POSITIVE
[2020-12-14 08:29] LABS: ABG PCO2 24 mmHg (34-45)
[2020-12-14] MEDS: SODIUM CHLORIDE FLUSH 0.9% 10 ML SYRINGE IVP SCH ×2 (08:32→17:00)
[2020-12-14] MEDS: ENOXAPARIN 40 MG/0.4 ML SYRINGE SUBQ SCH (09:46)
[2020-12-14] MEDS ORDERED: LACTATED RINGERS 1,000 ML IV ONE (10:23)
[2020-12-14] MEDS: MULTIVITAMIN 10 ML, FOLIC ACID INJ 1 MG, THIAMINE INJ 100 MG, MAGNESIUM SULFATE 2 GM in... IV SCH ×5 (10:30)
--- NOTE | 2020-12-14 10:31 | PHARMACY PROGRESS NOTE ---
- Best Possible Medication History Admit Date and Time: 12/13/20 1541 Processed by: Nursing Medication History completed: Yes Patient Interview: Completed (MED REC COMPLETED BY NURSING) As the person ultimately responsible for medication therapy, providers are able to order a medication from an existing home medication list in [facility] via the "Reconcile Routine" prior to Confirmation of that medication by patient support partner. Such practice is discouraged except when the physician, in their clinical judgment, deems that a medical need exists for a medication without regard to previous use.
[2020-12-14] MEDS: GABAPENTIN 400 MG CAPSULE PO SCH ×2 (14:15→22:00)
[2020-12-14] MEDS ORDERED: DOXEPIN 25 MG CAPSULE PO SCH (21:00)
[2020-12-14] MEDS: PROPRANOLOL 10 MG TABLET PO SCH (21:23)
[2020-12-14] MEDS: AMOX/CLAV 875 MG/125 MG TABLET PO SCH (21:24)
[2020-12-15] MEDS: SODIUM CHLORIDE FLUSH 0.9% 10 ML SYRINGE IVP SCH (04:51)
[2020-12-15 05:23] LABS: BASOPHILS % (AUTO) 0.2 %; EOSINOPHILS # (AUTO) 0.5 10^3/uL (0.0-0.7); EOSINOPHILS % (AUTO) 9.3 %; HCT - HEMATOCRIT 35.7 % (42.0-52.0); HGB - HEMOGLOBIN 12.2 g/dL (14.0-18.0); LYMPHOCYTES # (AUTO) 1.1 10^3/uL (1.5-3.5); LYMPHOCYTES % (AUTO) 22.4 %; MEAN CORPUSCULAR HEMOGLOBIN 33.7 pg (27.0-31.0); MEAN CORPUSCULAR HGB CONC 34.2 g/dL (32.0-36.0); MEAN CORPUSCULAR VOLUME 98.6 fL (80.0-94.0); MEAN PLATELET VOLUME 9.5 fL (7.4-11.4); MONOCYTES # (AUTO) 0.4 10^3/uL (0.0-1.0); MONOCYTES % (AUTO) 8.1 %; NEUTROPHILS # (AUTO) 2.9 10^3/uL (1.5-6.6); NEUTROPHILS % (AUTO) 59.6 %; PLT - PLATELET COUNT 249 10^3/uL (130-450); RED BLOOD COUNT 3.62 10^6/uL (4.70-6.10); RED CELL DISTRIBUTION WIDTH 13.4 % (12.0-15.0); WHITE BLOOD COUNT 4.8 x10^3/uL (4.8-10.8)
[2020-12-15 05:35] LABS: CALCIUM 9.2 mg/dL (8.5-10.3); CREATININE 0.9 mg/dL (0.6-1.2); MAGNESIUM 1.8 mg/dL (1.7-2.8); PHOSPHORUS 4.7 mg/dL (2.5-4.6); POTASSIUM 3.7 mmol/L (3.5-5.0)
--- NOTE | 2020-12-15 07:29 | Discharge Plan ---
Discharge Plan Problem Reviewed?: Yes Disposition: Home, Self Care Condition: Stable Prescriptions: Amox/Clav 875/125 [Augmentin 875/125 Tab] 1 tab PO BID #10 tablet Thiamine [Vitamin B-1] 100 mg PO DAILY #30 tablet Diet: Regular Activity Restrictions: Activity as Tolerated Health Concerns: You were admitted to the hospital because you were found down on the ground and there was concern for potentially a cardiac arrest. They did perform CPR and you were found to have a pulse immediately after. We are not sure if you truly did have a cardiac arrest or if you just had an unresponsive episode due to low blood pressure. We have monitored your heart and there has been no evidence of abnormal heart rhythms. We did do an ultrasound of your heart which showed normal function and no abnormal valves. We checked your heart numbers and these have all been normal. We did a CT scan of your head down to your abdomen and the only thing this revealed was potentially aspiration pneumonia for which we treated you with antibiotics. Plan of Treatment: We do not have a clear cause of what happened. We recommend that you take antibiotics as prescribed aspiration pneumonia. Please follow-up with your primary care provider in 1 week as you may need an outpatient heart monitor to ensure that you are not having abnormal heart rhythms. It is also important to take your medications as prescribed and to limit your alcohol use. As we discussed, it is important that you avoid alcohol as this will lead to further liver disease and eventually liver failure. Assessment: The patient expressed understanding of the treatment plan. Additional Instructions or Follow Up instructions: Follow-up with your primary care provider in 1 week. No Smoking: If you smoke, Please STOP! Call for help. Follow-up with: Kim uDtton DO [Primary Care Provider] -
--- NOTE | 2020-12-15 07:39 | DISCHARGE SUMMARY ---
Discharge Summary Admit Date: 12/13/20 Discharge Date: 12/15/20 Discharging Provider: Omar Sheridan Primary Care Provider: Kim Dutton Code Status: Attempt Resuscitation Condition at Discharge: Stable Discharge Disposition: 01 Home, Self Care - DIAGNOSES Admission Diagnoses: Unresponsive episode On mechanically assisted ventilation Aspiration pneumonia Polypharmacy Liver disease due to alcohol Alcohol abuse Discharge Diagnoses with Status of Each Condition: Unresponsive episode - resolved. Aspiration pneumonia - improved. Polypharmacy - stable. Liver disease due to alcohol - stable. Alcohol abuse - stable. On mechanically assisted ventilation - resolved. - HPI History of Present Illness: This is a 55-year-old male with history of alcohol abuse, liver disease, polypharmacy who presents today after being found unresponsive at home. The patient reportedly was found by his mother after she heard him fall while in the bathroom. He was reportedly going to get into the shower but fell before getting in. There was no pulse felt and so CPR was initiated and he was given a dose of epinephrine. It has not been reported what rhythm he was in prior to return of spontaneous circulation. He was intubated in the field and was brought to our emergency department. There he was reportedly waking up a little bit and he was placed on CPAP trial in hopes of possibly extubating him but he had apneic episodes and so he was kept intubated. His labs were overall unremarkable except for lactic acid of 3.0. Troponin was checked twice and both were negative. His EKG revealed sinus rhythm with slight ST elevations in the inferior leads but this was not consistent with ischemia. He underwent imaging of his head, chest, abdomen pelvis which overall was unremarkable except for concerns for aspiration pneumonia. Given the above findings, medicine was consulted for admission. - HOSPITAL COURSE Hospital Course: The patient was admitted to the intensive care unit after he was found down at home. There was initial concern for cardiac arrest and had CPR in the field 1 dose of epinephrine. It is unclear if this was truly a cardiac arrest or not as it was not documented initial rhythm was but a reportedly had no pulse and he had return of spontaneous circulation immediately after initiation of CPR. His troponins have all been within normal limits. His EKG initially revealed mild elevations in the inferior leads but did not meet criteria for ischemia. Repeat EKG revealed a sinus rhythm. There has been no evidence of prolonged QTC. There has been no evidence of arrhythmias on telemetry. An echocardiogram was obtained which showed a preserved ejection fraction without significant valvular disease. Imaging revealed aspiration pneumonia and he was started on Zosyn IV empirically. He was extubated the following day and he has been at his baseline neurologic status. We have prescribed him Augmentin for 5 more days to complete 7 days of therapy. The patient did want to leave AGAINST MEDICAL ADVICE the same day he was extubated but after discussion with him regarding the importance to monitor him given did not have a clear cause of what happened he was agreeable to staying 1 more night. I did encourage him to follow-up with his primary care provider for consideration of a Zio patch to ensure that the arrhythmia did not contribute to his initial presentation. I also asked him to ensure that he is compliant with his medications as he is on multiple sedatives and he was also intoxicated when he came in. We discussed the importance of alcohol cessation. - ALLERGIES Allergies/Adverse Reactions: Allergies Allergy/AdvReac Type Severity Reaction Status Date / Time lisinopril Allergy Mild Anaphylaxis Verified 12/08/20 23:56 - MEDICATIONS Home Medications: Ambulatory Orders Medication Instructions Recorded Confirmed Furosemide [Lasix] 40 mg PO DAILY 08/19/19 12/13/20 Cholecalciferol [Vitamin D3] 1,000 units PO DAILY 01/17/20 12/13/20 Multivitamin W/Minerals [Theragran 1 each PO DAILY 01/17/20 12/13/20 M] Propranolol [Inderal] 15 mg PO BID 01/17/20 12/13/20 Pantoprazole Sodium 40 mg PO DAILY 06/14/20 12/13/20 Doxepin [SINEquan] 25 mg PO QPM 11/23/20 12/13/20 Gabapentin [Neurontin] 800 mg PO TID 11/23/20 12/13/20 QUEtiapine [SEROquel] 50 mg PO DAILY 11/23/20 12/13/20 Folic Acid/Vit B Complex and C 1 tab PO DAILY 11/24/20 12/13/20 [B-Complex with Vit C Tablet] LORazepam [Ativan] 1 mg PO BID #0 11/27/20 12/13/20 Meloxicam [Mobic] 1 tablet PO DAILY PRN #20 tab 12/08/20 12/13/20 Ondansetron Odt [Zofran Odt] 4 mg TL Q6H PRN #20 tablet 12/09/20 12/13/20 Spironolactone [Aldactone] 100 mg PO DAILY 12/13/20 12/13/20 traMADol [Ultram] 50 mg PO Q6HR PRN 12/13/20 12/13/20 Amox/Clav 875/125 [Augmentin 1 tab PO BID #10 tablet 12/15/20 875/125 Tab] Thiamine [Vitamin B-1] 100 mg PO DAILY #30 tablet 12/15/20 - PHYSICAL EXAM AT DISCHARGE General Appearance: positive: No acute distress, Alert Eyes Bilateral: positive: Normal inspection, Conjunctivae nml ENT: positive: ENT inspection nml Neck: positive: Nml inspection Respiratory: positive: No respiratory distress, Breath sounds nml. negative: Wheezes, Rales Cardiovascular: positive: No murmur. negative: Tachycardia, Systolic murmur Abdomen: positive: Non-tender, No distention. negative: Tenderness, Guarding, Rebound Skin: positive: Warm, Dry Extremities: positive: No pedal edema Neurologic/Psychiatric: positive: Motor nml. negative: Disoriented to person, Disoriented to place, Disoriented to time - LABS Result Diagrams: 12/15/20 04:12 12/15/20 04:12 Other Lab Results: Vital Signs - 24 hr 12/14/20 12/14/20 12/15/20 20:00 23:44 04:00 Temperature 36.7 C 36.8 C 37.4 C Heart Rate [ 100 96 83 Monitoring electrodes] Respiratory 15 16 12 Rate Blood Pressure 131/83 H [Right Brachial artery] O2 Saturation 97 96 95 12/15/20 08:00 Temperature 36.9 C Heart Rate [ 79 Monitoring electrodes] Respiratory 18 Rate Blood Pressure 141/103 H [Right Brachial artery] O2 Saturation 95 Oxygen O2 Source Room air - FOLLOW UP Follow Up: He was asked to follow-up with his primary care provider in 1 week. A Zio patch can be considered or an outpatient cardiology consult although as mentioned above, there is low suspicion for a cardiac arrest as a cause of his unresponsiveness. - TIME SPENT Time Spent in Discharge (Minutes): 32
[2020-12-15] MEDS ORDERED: MULTIVITAMIN TABLET PO SCH (08:00)
[2020-12-15] MEDS: GABAPENTIN 400 MG CAPSULE PO SCH (08:53)
[2020-12-15] MEDS: AMOX/CLAV 875 MG/125 MG TABLET PO SCH (08:53)
[2020-12-15] MEDS: PROPRANOLOL 10 MG TABLET PO SCH (08:55)
[2020-12-15] MEDS: CHLORHEXIDINE GLUCONATE 15 ML UDC PO SCH (08:56)
[2020-12-15] MEDS: ENOXAPARIN 40 MG/0.4 ML SYRINGE SUBQ SCH (08:56)
[2020-12-15] MEDS ORDERED: SPIRONOLACTONE 25 MG TABLET PO SCH (09:00)
[2020-12-15] MEDS ORDERED: FUROSEMIDE 40 MG TABLET PO SCH (09:00)
[2020-12-15] MEDS ORDERED: FOLIC ACID 1 MG TABLET PO SCH (09:00)
[2020-12-15] MEDS ORDERED: THIAMINE 100 MG TABLET PO SCH (09:00)
[2020-12-15] MEDS ORDERED: PANTOPRAZOLE 40 MG TABLET PO SCH (09:00)
[2020-12-15] MEDS ORDERED: QUEtiapine 25 MG TABLET PO SCH (09:00)
[2020-12-15 09:23] VITALS: BP 141/103
== END 2020-12-15 12:00 | disposition home or self-care (01) | DRG 884 ==
LOC: EDUNIT# → ED 12:54 → ICU 15:41
PROVIDERS: ADMIT Internal Medicine; ATTEND Internal Medicine
DX: I46.9 Cardiac arrest, cause unspecified (principal); F13.20 Sedative, hypnotic or anxiolytic dependence, uncomplicated; R40.4 Transient alteration of awareness; F10.20 Alcohol dependence, uncomplicated; Z20.822 Contact with and (suspected) exposure to COVID-19; J69.0 Pneumonitis due to inhalation of food and vomit; F10.129 Alcohol abuse with intoxication, unspecified; Z79.899 Other long term (current) drug therapy; K70.9 Alcoholic liver disease, unspecified; Z87.891 Personal history of nicotine dependence; I10 Essential (primary) hypertension; G47.30 Sleep apnea, unspecified; F32.9 Major depressive disorder, single episode, unspecified; F41.9 Anxiety disorder, unspecified
CPT/HCPCS: 36415; 36600; 70450; 71045; 71260; 72125; 74177; 80048; 80053; 80306; 80307; 81003; 82140; 82550; 82803; 83605; 83690; 83735; 83880; 84100; 84484; 85025; 85610; 87150; 87631; 93005; 93306; 94002; 94003; 96374; 99285; 99291; A9270; G0480; J1650; J3411; J7120; Q9967; 0202U; 80320; 80329; 81001; 87086; 94770

== ENCOUNTER 2020-12-18 18:55 | Outpatient (CLI) | payer MEDICARE, MEDICAID | END 2020-12-18 18:56 | disposition critical access hospital (66) | LOC: EMS 18:55 | DX: F10.129 Alcohol abuse with intoxication, unspecified (principal) | CPT/HCPCS: A0425; A0429 ==

== ENCOUNTER 2020-12-18 19:15 | Emergency (ER) | payer MEDICARE, MEDICAID ==
[2020-12-18 19:25] VITALS: BP 132/90
--- NOTE | 2020-12-18 19:57 | ED Physician Documentation ---
History of Present Illness - Stated complaint Stated Complaint: HBD - Chief complaint Chief Complaint: General - History obtained from History obtained from: Patient - Additonal information Additional information: Emergency department chief complaint of "I need help with my drinking". Patient states he is a longstanding alcoholic and that he has been drinking vodka today. He does not know exactly how much, but states that this is a daily occurrence for him. He states he had a realization today that he desperately needs help with his drinking and that he is not going to be able to quit on his own. He denies feeling suicidal. He states that he went to rehab once back in 1992 and was sober only for the time that he was in rehab, after which he immediately relapsed on alcohol. Patient denies any other symptoms of illness. He states he has a little bit of abdominal pain, and has a history of liver issues related to his drinking. No other complaints at this time. Review of Systems Ten Systems: 10 systems reviewed and negative Constitutional: reports: Reviewed and negative Eyes: reports: Reviewed and negative Ears: reports: Reviewed and negative Nose: reports: Reviewed and negative Throat: reports: Reviewed and negative Cardiac: reports: Reviewed and negative Respiratory: reports: Reviewed and negative GI: reports: Abdominal Pain : reports: Reviewed and negative Skin: reports: Reviewed and negative Musculoskeletal: reports: Reviewed and negative Neurologic: reports: Reviewed and negative Psychiatric: reports: Reviewed and negative Endocrine: reports: Reviewed and negative Immunocompromised: reports: Reviewed and negative PD PAST MEDICAL HISTORY - Past Medical History Past Medical History: Yes Cardiovascular: Hypertension, High cholesterol Respiratory: Sleep apnea, CPAP use Neuro: Headaches, Other Endocrine/Autoimmune: None, Other GI: GERD, Pancreatitis, Cirrhosis : Incontinence HEENT: None Psych: Depression, Anxiety, Panic attacks, Claustrophobia Musculoskeletal: Osteoarthritis Derm: None - Past Surgical History Past Surgical History: Yes Ortho: Hip replacement, Arthroscopic surgery HEENT: Tracheostomy - Present Medications Home Medications: Ambulatory Orders Medication Instructions Recorded Confirmed Furosemide [Lasix] 40 mg PO DAILY 08/19/19 12/13/20 Cholecalciferol [Vitamin D3] 1,000 units PO DAILY 01/17/20 12/13/20 Multivitamin W/Minerals [Theragran 1 each PO DAILY 01/17/20 12/13/20 M] Propranolol [Inderal] 15 mg PO BID 01/17/20 12/13/20 Pantoprazole Sodium 40 mg PO DAILY 06/14/20 12/13/20 Doxepin [SINEquan] 25 mg PO QPM 11/23/20 12/13/20 Gabapentin [Neurontin] 800 mg PO TID 11/23/20 12/13/20 QUEtiapine [SEROquel] 50 mg PO DAILY 11/23/20 12/13/20 Folic Acid/Vit B Complex and C 1 tab PO DAILY 11/24/20 12/13/20 [B-Complex with Vit C Tablet] LORazepam [Ativan] 1 mg PO BID #0 11/27/20 12/13/20 Meloxicam [Mobic] 1 tablet PO DAILY PRN #20 tab 12/08/20 12/13/20 Ondansetron Odt [Zofran Odt] 4 mg TL Q6H PRN #20 tablet 12/09/20 12/13/20 Spironolactone [Aldactone] 100 mg PO DAILY 12/13/20 12/13/20 traMADol [Ultram] 50 mg PO Q6HR PRN 12/13/20 12/13/20 Amox/Clav 875/125 [Augmentin 1 tab PO BID #10 tablet 12/15/20 875/125 Tab] Thiamine [Vitamin B-1] 100 mg PO DAILY #30 tablet 12/15/20 - Allergies Allergies/Adverse Reactions: Allergies Allergy/AdvReac Type Severity Reaction Status Date / Time lisinopril Allergy Mild Anaphylaxis Verified 12/18/20 19:20 - Social History Does the pt smoke?: No Smoking Status: Never smoker Does the pt drink ETOH?: No Does the pt have substance abuse?: No - Immunizations Immunizations are current?: Yes Immunizations: Other immun not current - POLST Patient has POLST: No POLST Status: Full Code (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 and to ENT SURGEON, 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.) PD ED PE NORMAL - Vitals Vital signs reviewed: Yes - General General: 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, No acute distress, Other (Moderately intoxicated clinically) - HEENT HEENT: Atraumatic, PERRL, EOMI, Moist mucous membranes - Neck Neck: Supple, no meningeal sign - Cardiac Cardiac: RRR, No murmur, Strong equal pulses - Respiratory Respiratory: No respiratory distress, Clear bilaterally - Abdomen Abdomen: Soft, Non tender, Non distended - Derm Derm: Normal color, Warm and dry, No rash - Extremities Extremities: No deformity, Other (2+ pitting edema bilateral lower extremities) - Neuro Neuro: 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, Other (Speech slightly slowed and slurred but otherwise grossly normal neuro exam. Patient is answering questions appropriately) - Psych Psych: Normal mood, Normal affect Results - Vitals Vitals: Vital Signs - 24 hr 12/18/20 19:20 Temperature 36.4 C L Heart Rate 82 Respiratory 20 Rate Blood Pressure 132/90 H O2 Saturation 97 Oxygen O2 Source Room air - Labs Labs: Laboratory Tests 12/18/20 12/18/20 12/18/20 19:36 19:36 19:36 WBC 4.2 L RBC 3.90 L Hgb 12.8 L Hct 37.6 L MCV 96.4 H MCH 32.8 H MCHC 34.0 RDW 13.4 Plt Count 238 MPV 8.5 Neut # (Auto) 1.2 L Lymph # (Auto) 2.2 Harrison # (Auto) 0.5 Eos # (Auto) 0.3 Baso # (Auto) 0.0 Absolute Nucleated RBC 0.00 Nucleated RBC % 0.0 Sodium 138 Potassium 4.0 Chloride 100 L Carbon Dioxide 26 Anion Gap 12.0 BUN 16 Creatinine 1.1 Estimated GFR (MDRD) 69 L Glucose 108 H Calcium 9.2 Total Bilirubin 0.6 AST 25 ALT 17 Alkaline Phosphatase 87 Total Protein 7.9 Albumin 4.3 Globulin 3.6 Albumin/Globulin Ratio 1.2 Lipase 17 L Nasal Adenovirus (PCR) Nasal B. parapertussis DNA (PCR) Nasal Coronavir 229E PCR Nasal Coronavir HKU1 PCR Nasal Coronavir NL63 PCR Nasal Coronavir OC43 PCR Nasal Enterovir/Rhinovir PCR Nasal Influenza B PCR Nasal Influenza A PCR Nasal Parainfluen 1 PCR Nasal Parainfluen 2 PCR Nasal Parainfluen 3 PCR Nasal Parainfluen 4 PCR Nasal RSV (PCR) Nasal B.pertussis DNA PCR Nasal C.pneumoniae (PCR) Lito Human Metapneumo PCR Nasal M.pneumoniae (PCR) Nasal SARS-CoV-2 (PCR) Ethyl Alcohol 270.5 12/18/20 20:25 WBC RBC Hgb Hct MCV MCH MCHC RDW Plt Count MPV Neut # (Auto) Lymph # (Auto) Harrison # (Auto) Eos # (Auto) Baso # (Auto) Absolute Nucleated RBC Nucleated RBC % Sodium Potassium Chloride Carbon Dioxide Anion Gap BUN Creatinine Estimated GFR (MDRD) Glucose Calcium Total Bilirubin AST ALT Alkaline Phosphatase Total Protein Albumin Globulin Albumin/Globulin Ratio Lipase Nasal Adenovirus (PCR) NOT DETECTED Nasal B. parapertussis DNA (PCR) NOT DETECTED Nasal Coronavir 229E PCR NOT DETECTED Nasal Coronavir HKU1 PCR NOT DETECTED Nasal Coronavir NL63 PCR NOT DETECTED Nasal Coronavir OC43 PCR NOT DETECTED Nasal Enterovir/Rhinovir PCR NOT DETECTED Nasal Influenza B PCR NOT DETECTED Nasal Influenza A PCR NOT DETECTED Nasal Parainfluen 1 PCR NOT DETECTED Nasal Parainfluen 2 PCR NOT DETECTED Nasal Parainfluen 3 PCR NOT DETECTED Nasal Parainfluen 4 PCR NOT DETECTED Nasal RSV (PCR) NOT DETECTED Nasal B.pertussis DNA PCR NOT DETECTED Nasal C.pneumoniae (PCR) NOT DETECTED Lito Human Metapneumo PCR NOT DETECTED Nasal M.pneumoniae (PCR) NOT DETECTED Nasal SARS-CoV-2 (PCR) NOT DETECTED Ethyl Alcohol PD MEDICAL DECISION MAKING - ED course Complexity details: reviewed results, re-evaluated patient, considered differential, d/w patient ED course: The patient stated he would like inpatient rehab/detox and I did discuss with him that this may not happen until morning when group social worker gets here. Patient stated he would like to stay in any way. As such, medical clearance labs were ordered. However, during the patient's stay, he became irate with nursing staff and decided to leave the department AGAINST MEDICAL ADVICE. Departure - Departure Disposition: Against Medical Advice Condition: Fair Discharge Date/Time: 12/18/20 21:14
[2020-12-18 19:58] LABS: EOSINOPHILS # (AUTO) 0.3 10^3/uL (0.0-0.7); EOSINOPHILS % (AUTO) 6.4 %; HCT - HEMATOCRIT 37.6 % (42.0-52.0); HGB - HEMOGLOBIN 12.8 g/dL (14.0-18.0); LYMPHOCYTES # (AUTO) 2.2 10^3/uL (1.5-3.5); LYMPHOCYTES % (AUTO) 53.3 %; MEAN CORPUSCULAR HEMOGLOBIN 32.8 pg (27.0-31.0); MEAN CORPUSCULAR VOLUME 96.4 fL (80.0-94.0); MEAN PLATELET VOLUME 8.5 fL (7.4-11.4); MONOCYTES # (AUTO) 0.5 10^3/uL (0.0-1.0); NEUTROPHILS # (AUTO) 1.2 10^3/uL (1.5-6.6); NEUTROPHILS % (AUTO) 27.6 %; PLT - PLATELET COUNT 238 10^3/uL (130-450); RED CELL DISTRIBUTION WIDTH 13.4 % (12.0-15.0); WHITE BLOOD COUNT 4.2 x10^3/uL (4.8-10.8)
[2020-12-18 20:10] LABS: ALBUMIN 4.3 g/dL (3.2-5.5); ALBUMIN/GLOBULIN RATIO 1.2 (1.0-2.2); BILIRUBIN,TOTAL 0.6 mg/dL (0.2-1.0); CALCIUM 9.2 mg/dL (8.5-10.3); CREATININE 1.1 mg/dL (0.6-1.2); TOTAL PROTEIN 7.9 g/dL (6.7-8.2)
[2020-12-18 21:26] LABS: B. PARAPERTUSSIS- RESP PCR PAN NOT DETECTED; B. PERTUSSIS- RESP PCR PANEL NOT DETECTED; C. PNEUMONIAE- RESP PCR PANEL NOT DETECTED; CORONAVIRUS 229E-RESP PCR NOT DETECTED; CORONAVIRUS HKU1-RESP PCR NOT DETECTED; CORONAVIRUS NL63-RESP PCR NOT DETECTED; CORONAVIRUS OC43-RESP PCR NOT DETECTED; HUMAN METAPNEUMOVIRUS NOT DETECTED; INFLUENZA A- RESP PCR PANEL NOT DETECTED; INFLUENZA B - RESP PCR PANEL NOT DETECTED; M. PNEUMONIAE- RESP PCR PANEL NOT DETECTED; PARAINFLUENZA VIRUS 1 NOT DETECTED; PARAINFLUENZA VIRUS 2 NOT DETECTED; PARAINFLUENZA VIRUS 3 NOT DETECTED; PARAINFLUENZA VIRUS 4 NOT DETECTED; RHINOVIRUS/ENTEROVIRUS NOT DETECTED; RSV- RESP PCR PANEL NOT DETECTED; SARS-CoV-2 -RESP PCR PANEL NOT DETECTED
== END 2020-12-18 21:14 | disposition left against medical advice (07) ==
LOC: EDUNIT# → ED 19:15 → SUPCPDRO 19:15 → ED 21:14
DX: F10.229 Alcohol dependence with intoxication, unspecified (principal); R10.9 Unspecified abdominal pain; R60.0 Localized edema; I10 Essential (primary) hypertension; Z20.822 Contact with and (suspected) exposure to COVID-19; Z53.29 Procedure and treatment not carried out because of patient's decision for other reasons
CPT/HCPCS: 36415; 80053; 83690; 85025; 87631; 99283; G0480; 0202U; 80320

== ENCOUNTER 2020-12-22 21:00 | Outpatient (CLI) | payer MEDICARE, MEDICAID | END 2020-12-22 21:01 | disposition critical access hospital (66) | LOC: EMS 21:00 | DX: Z74.2 Need for assistance at home and no other household member able to render care (principal) | CPT/HCPCS: A0425; A0429 ==

== ENCOUNTER 2020-12-22 21:17 | Emergency (ER) | payer MEDICARE, MEDICAID ==
[2020-12-22] MEDS ORDERED: NALOXONE 0.4 MG/ML VIAL IVP STA (21:29)
[2020-12-22 21:33] LABS: BASOPHILS % (AUTO) 0.8 %; EOSINOPHILS # (AUTO) 0.5 10^3/uL (0.0-0.7); HCT - HEMATOCRIT 36.5 % (42.0-52.0); HGB - HEMOGLOBIN 12.3 g/dL (14.0-18.0); LYMPHOCYTES # (AUTO) 2.7 10^3/uL (1.5-3.5); LYMPHOCYTES % (AUTO) 53.1 %; MEAN CORPUSCULAR HEMOGLOBIN 33.6 pg (27.0-31.0); MEAN CORPUSCULAR HGB CONC 33.7 g/dL (32.0-36.0); MEAN CORPUSCULAR VOLUME 99.7 fL (80.0-94.0); MEAN PLATELET VOLUME 8.8 fL (7.4-11.4); MONOCYTES # (AUTO) 0.7 10^3/uL (0.0-1.0); MONOCYTES % (AUTO) 14.6 %; NEUTROPHILS # (AUTO) 1.1 10^3/uL (1.5-6.6); NEUTROPHILS % (AUTO) 21.1 %; PLT - PLATELET COUNT 214 10^3/uL (130-450); RED BLOOD COUNT 3.66 10^6/uL (4.70-6.10); RED CELL DISTRIBUTION WIDTH 13.8 % (12.0-15.0)
[2020-12-22 21:51] LABS: ALBUMIN 4.3 g/dL (3.2-5.5); ALBUMIN/GLOBULIN RATIO 1.3 (1.0-2.2); BILIRUBIN,TOTAL 0.4 mg/dL (0.2-1.0); CREATININE 1.3 mg/dL (0.6-1.2); ETOH - ETHANOL 408.7 mg/dL; POTASSIUM 4.7 mmol/L (3.5-5.0); TOTAL PROTEIN 7.6 g/dL (6.7-8.2)
--- NOTE | 2020-12-22 22:08 | XRAY Report ---
PROCEDURE: Chest 1 View X-Ray INDICATIONS: chest pain TECHNIQUE: One view of the chest was acquired. COMPARISON: 12/13/2020 FINDINGS: Surgical changes and devices: None. Lungs and pleura: No pleural effusions or pneumothorax. Interval worsening of horizontal bilateral b ibasilar opacities, left more so than right superimposed on diffuse interstitial thickening. Mediastinum: Mediastinal contours appear normal. Heart size is normal. Bones and chest wall: No suspicious bony lesions. Overlying soft tissues appear unremarkable. IMPRESSION: 1. Infectious or atelectatic changes at both lung bases, left more so the right. Reviewed by: Kezia Narayanan MD on 12/22/2020 10:07 PM PDT Approved by: Kezia Narayanan MD on 12/22/2020 10:07 PM PDT Station ID: [id number]
--- NOTE | 2020-12-22 23:23 | ED Physician Documentation ---
PD HPI ALTERED MENTAL STATUS - Stated complaint Stated Complaint: ETOH - Chief complaint Chief Complaint: General - History obtained from History obtained from: EMS - History of Present Illness Timing - onset: Today Timing - duration: Hours Timing - details: Gradual onset, Still present Quality / character: Unresponsive Contributing factors: Intoxicated Basline status: 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, Ambulatory, Independent Similar symptoms before: Diagnosis (alcohol intoxication) Recently seen: Emergency Dept, Admitted - Additional information Additional information: 55-year-old male with a remote history of Guillain-Atwood and severe alcoholism has again become intoxicated and unresponsive. He is transported the hospital he is minimally responsive when he arrives so much so that he is even hypoxic on room air. His chest x-ray shows atelectasis. He does not have response to Narcan given intravenously. He has not had issues previously with narcotic overdose. He has had intoxication to the point of unresponsiveness multiple times. Today he is kept in the emergency department 4 hours eventually awakens completely and request to go home. Is no longer hypoxic breathing well and less intoxicated. He had a blood alcohol level over 400. He is requesting repeatedly to go home. Review of Systems Unable to obtain: Intoxicated Constitutional: denies: Fever Eyes: denies: Decreased vision Ears: denies: Ear pain Nose: denies: Congestion Throat: denies: Sore throat Cardiac: denies: Chest pain / pressure, Palpitations Respiratory: denies: Dyspnea, Cough GI: denies: Vomiting Skin: denies: Rash Musculoskeletal: denies: Neck pain, Back pain, Extremity pain Neurologic: denies: Generalized weakness, Focal weakness, Numbness PD PAST MEDICAL HISTORY - Past Medical History Past Medical History: Yes Cardiovascular: Hypertension, High cholesterol Respiratory: Sleep apnea, CPAP use Neuro: Headaches, Other Endocrine/Autoimmune: None, Other GI: GERD, Pancreatitis, Cirrhosis : Incontinence HEENT: None Psych: Depression, Anxiety, Panic attacks, Claustrophobia Musculoskeletal: Osteoarthritis Derm: None - Past Surgical History Past Surgical History: Yes Ortho: Hip replacement, Arthroscopic surgery HEENT: Tracheostomy - Present Medications Home Medications: Ambulatory Orders Medication Instructions Recorded Confirmed Furosemide [Lasix] 40 mg PO DAILY 08/19/19 12/13/20 Cholecalciferol [Vitamin D3] 1,000 units PO DAILY 01/17/20 12/13/20 Multivitamin W/Minerals [Theragran 1 each PO DAILY 01/17/20 12/13/20 M] Propranolol [Inderal] 15 mg PO BID 01/17/20 12/13/20 Pantoprazole Sodium 40 mg PO DAILY 06/14/20 12/13/20 Doxepin [SINEquan] 25 mg PO QPM 11/23/20 12/13/20 Gabapentin [Neurontin] 800 mg PO TID 11/23/20 12/13/20 QUEtiapine [SEROquel] 50 mg PO DAILY 11/23/20 12/13/20 Folic Acid/Vit B Complex and C 1 tab PO DAILY 11/24/20 12/13/20 [B-Complex with Vit C Tablet] LORazepam [Ativan] 1 mg PO BID #0 11/27/20 12/13/20 Meloxicam [Mobic] 1 tablet PO DAILY PRN #20 tab 12/08/20 12/13/20 Ondansetron Odt [Zofran Odt] 4 mg TL Q6H PRN #20 tablet 12/09/20 12/13/20 Spironolactone [Aldactone] 100 mg PO DAILY 12/13/20 12/13/20 traMADol [Ultram] 50 mg PO Q6HR PRN 12/13/20 12/13/20 Amox/Clav 875/125 [Augmentin 1 tab PO BID #10 tablet 12/15/20 875/125 Tab] Thiamine [Vitamin B-1] 100 mg PO DAILY #30 tablet 12/15/20 - Allergies Allergies/Adverse Reactions: Allergies Allergy/AdvReac Type Severity Reaction Status Date / Time lisinopril Allergy Mild Anaphylaxis Verified 12/22/20 21:30 - Social History Does the pt smoke?: No Smoking Status: Never smoker Does the pt drink ETOH?: No Does the pt have substance abuse?: No - Immunizations Immunizations are current?: Yes Immunizations: Other immun not current - POLST Patient has POLST: No POLST Status: Full Code (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, 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.) PD ED PE NORMAL - Vitals Vital signs reviewed: Yes (hypoxic on room air ) - General General: No acute distress, Well developed/nourished, Other (The patient has bilateral lid ptosis and is minimally responsive to verbal.) - HEENT HEENT: Atraumatic, PERRL, EOMI - Neck Neck: Supple, no meningeal sign, No bony TTP - Cardiac Cardiac: RRR, No murmur - Respiratory Respiratory: No respiratory distress, Clear bilaterally - Abdomen Abdomen: Normal bowel sounds, Soft, Non tender, Non distended, No organomegaly - Back Back: No CVA TTP, No spinal TTP - Derm Derm: Normal color, Warm and dry, No rash - Extremities Extremities: No deformity, Other (Trace edema bilaterally) - Neuro Neuro: movie star 2-12 intact, No motor deficit, No sensory deficit, Other (Speech is slurred on initial presentation.) Eye Opening: Spontaneous Motor: Obeys Commands Verbal: Oriented GCS Score: 15 - Psych Psych: Other (Mood is withdrawn and affect is flat) Results - Vitals Vitals: Vital Signs - 24 hr 12/22/20 12/22/20 12/22/20 21:21 21:38 23:30 Temperature 36.5 C Heart Rate 92 88 86 Respiratory 15 21 216 H Rate Blood Pressure 98/71 107/88 H 85/54 L O2 Saturation 91 L 98 12/22/20 12/23/20 23:39 01:00 Temperature Heart Rate 82 83 Respiratory 15 18 Rate Blood Pressure 92/78 92/72 O2 Saturation 96 96 Oxygen O2 Source Room air - Labs Labs: Laboratory Tests 12/22/20 12/22/20 12/23/20 21:29 21:29 01:18 WBC 5.0 RBC 3.66 L Hgb 12.3 L Hct 36.5 L MCV 99.7 H MCH 33.6 H MCHC 33.7 RDW 13.8 Plt Count 214 MPV 8.8 Neut # (Auto) 1.1 L Lymph # (Auto) 2.7 [place] # (Auto) 0.7 Eos # (Auto) 0.5 Baso # (Auto) 0.0 Absolute Nucleated RBC 0.00 Nucleated RBC % 0.0 Sodium 141 Potassium 4.7 Chloride 101 Carbon Dioxide 28 Anion Gap 12.0 BUN 16 Creatinine 1.3 H Estimated GFR (MDRD) 57 L Glucose 96 Calcium 9.0 Magnesium 2.0 Total Bilirubin 0.4 AST 32 ALT 18 Alkaline Phosphatase 91 Total Protein 7.6 Albumin 4.3 Globulin 3.3 Albumin/Globulin Ratio 1.3 Lipase 17 L Urine Color Urine Clarity Urine pH Ur Specific [place] Urine Protein Urine Glucose (UA) Urine Ketones Urine Occult Blood Urine Nitrite Urine Bilirubin Urine Urobilinogen Ur Leukocyte Esterase Ur Microscopic Review Urine Culture Comments Nasal Adenovirus (PCR) NOT DETECTED Nasal B. parapertussis DNA (PCR) NOT DETECTED Nasal Coronavir 229E PCR NOT DETECTED Nasal Coronavir HKU1 PCR NOT DETECTED Nasal Coronavir NL63 PCR NOT DETECTED Nasal Coronavir OC43 PCR NOT DETECTED Nasal Enterovir/Rhinovir PCR NOT DETECTED Nasal Influenza B PCR NOT DETECTED Nasal Influenza A PCR NOT DETECTED Nasal Parainfluen 1 PCR NOT DETECTED Nasal Parainfluen 2 PCR NOT DETECTED Nasal Parainfluen 3 PCR NOT DETECTED Nasal Parainfluen 4 PCR NOT DETECTED Nasal RSV (PCR) NOT DETECTED Nasal B.pertussis DNA PCR NOT DETECTED Nasal C.pneumoniae (PCR) NOT DETECTED [place] Human Metapneumo PCR NOT DETECTED Nasal M.pneumoniae (PCR) NOT DETECTED Nasal SARS-CoV-2 (PCR) NOT DETECTED Urine Opiates Screen Ur Oxycodone Screen Urine Methadone Screen Ur Propoxyphene Screen Ur Barbiturates Screen Ur Tricyclics Screen Ur Phencyclidine Scrn Ur Amphetamine Screen U Methamphetamines Scrn U Benzodiazepines Scrn Urine Cocaine Screen U Cannabinoids Screen Ethyl Alcohol 408.7 12/23/20 01:53 WBC RBC Hgb Hct MCV MCH MCHC RDW Plt Count MPV Neut # (Auto) Lymph # (Auto) [place] # (Auto) Eos # (Auto) Baso # (Auto) Absolute Nucleated RBC Nucleated RBC % Sodium Potassium Chloride Carbon Dioxide Anion Gap BUN Creatinine Estimated GFR (MDRD) Glucose Calcium Magnesium Total Bilirubin AST ALT Alkaline Phosphatase Total Protein Albumin Globulin Albumin/Globulin Ratio Lipase Urine Color YELLOW Urine Clarity CLEAR Urine pH 6.0 Ur Specific [place] 1.010 Urine Protein NEGATIVE Urine Glucose (UA) NEGATIVE Urine Ketones NEGATIVE Urine Occult Blood NEGATIVE Urine Nitrite NEGATIVE Urine Bilirubin NEGATIVE Urine Urobilinogen 0.2 (NORMAL) Ur Leukocyte Esterase NEGATIVE Ur Microscopic Review NOT INDICATED Urine Culture Comments NOT INDICATED Nasal Adenovirus (PCR) Nasal B. parapertussis DNA (PCR) Nasal Coronavir 229E PCR Nasal Coronavir HKU1 PCR Nasal Coronavir NL63 PCR Nasal Coronavir OC43 PCR Nasal Enterovir/Rhinovir PCR Nasal Influenza B PCR Nasal Influenza A PCR Nasal Parainfluen 1 PCR Nasal Parainfluen 2 PCR Nasal Parainfluen 3 PCR Nasal Parainfluen 4 PCR Nasal RSV (PCR) Nasal B.pertussis DNA PCR Nasal C.pneumoniae (PCR) [place] Human Metapneumo PCR Nasal M.pneumoniae (PCR) Nasal SARS-CoV-2 (PCR) Urine Opiates Screen NEGATIVE Ur Oxycodone Screen NEGATIVE Urine Methadone Screen NEGATIVE Ur Propoxyphene Screen NEGATIVE Ur Barbiturates Screen NEGATIVE Ur Tricyclics Screen POSITIVE H Ur Phencyclidine Scrn NEGATIVE Ur Amphetamine Screen NEGATIVE U Methamphetamines Scrn NEGATIVE U Benzodiazepines Scrn POSITIVE H Urine Cocaine Screen NEGATIVE U Cannabinoids Screen POSITIVE H Ethyl Alcohol - Rads (name of study) chest Radiology: Prelim report reviewed (Impression: 1. Infectious or atelectatic changes at both lung bases, left more so than the right), EMP read indepedently, See rad report PD MEDICAL DECISION MAKING - ED course Complexity details: reviewed results, re-evaluated patient, considered differential, d/w patient ED course: 55-year-old male with history of alcoholism and multiple visits to the emergency department for alcohol intoxication and unresponsiveness. He has had prior CPR done when he has been unresponsive. Today he is intoxicated his blood alcohol is over 400. He is kept in the emergency department for hours eventually awakens and demands to be released. Typical of his prior admissions to the emergency department. Departure - Departure Disposition: 01 Home, Self Care Clinical Impression: Alcoholism Alcohol intoxication Qualifiers: Complication of substance-induced condition: with delirium Qualified Code(s): F10.921 - Alcohol use, unspecified with intoxication delirium Condition: Stable Instructions: ED Alcohol Intoxication Follow-Up: Kim Dutton DO [Primary Care Provider] - Discharge Date/Time: 12/23/20 03:15
[2020-12-22] MEDS ORDERED: FOLIC ACID INJ 1 MG, THIAMINE INJ 100 MG, MAGNESIUM SULFATE 2 GM, MULTIVITAMIN 10 ML in... IV STA ×5 (23:37)
[2020-12-22] MEDS ORDERED: THIAMINE 100 MG/1 ML 2 ML MDV ONE (23:46)
[2020-12-22] MEDS ORDERED: MAGNESIUM SULFATE 1 GM/2 ML VIAL ONE (23:46)
[2020-12-23 02:01] LABS: MUDS CUTOFF CONCENTRATIONS CUTOFF CONC BELOW:
[2020-12-23 02:04] LABS: BILIRUBIN,URINE NEGATIVE (NEGATIVE); GLUCOSE, URINE (UA) NEGATIVE (NEGATIVE); KETONES,URINE (UA) NEGATIVE (NEGATIVE); LEUKOCYTE ESTERASE, URINE NEGATIVE (NEGATIVE); NITRITE,URINE NEGATIVE (NEGATIVE); OCCULT BLOOD,URINE NEGATIVE (NEGATIVE); PROTEIN,URINE NEGATIVE (NEGATIVE); UROBILINOGEN,URINE 0.2 (NORMAL) E.U./dL (NORMAL)
[2020-12-23 02:06] VITALS: BP 92/72
[2020-12-23 02:11] LABS: CLARITY,URINE CLEAR (CLEAR)
[2020-12-23 02:14] LABS: AMPHETAMINE SCREEN,URINE NEGATIVE (NEGATIVE); BENZODIAZEPINES SCREEN, URINE POSITIVE (NEGATIVE); COCAINE SCREEN URINE NEGATIVE (NEGATIVE); METHAMPHETAMINES SCREEN, URINE NEGATIVE (NEGATIVE); OPIATE SCREEN, URINE NEGATIVE (NEGATIVE); THC CANNABINOID SCREEN, URINE POSITIVE (NEGATIVE); TRICYCLIC ANTIDEPRESSANT,URINE POSITIVE (NEGATIVE)
[2020-12-23 02:15] LABS: BARBITURATE SCREEN,UR NEGATIVE (NEGATIVE); METHADONE SCREEN, URINE NEGATIVE (NEGATIVE); OXYCODONE SCREEN, URINE NEGATIVE (NEGATIVE); PROPOXYPHENE SCREEN, URINE NEGATIVE (NEGATIVE)
[2020-12-23 02:26] LABS: B. PARAPERTUSSIS- RESP PCR PAN NOT DETECTED; B. PERTUSSIS- RESP PCR PANEL NOT DETECTED; C. PNEUMONIAE- RESP PCR PANEL NOT DETECTED; CORONAVIRUS 229E-RESP PCR NOT DETECTED; CORONAVIRUS HKU1-RESP PCR NOT DETECTED; CORONAVIRUS NL63-RESP PCR NOT DETECTED; CORONAVIRUS OC43-RESP PCR NOT DETECTED; HUMAN METAPNEUMOVIRUS NOT DETECTED; INFLUENZA A- RESP PCR PANEL NOT DETECTED; INFLUENZA B - RESP PCR PANEL NOT DETECTED; M. PNEUMONIAE- RESP PCR PANEL NOT DETECTED; PARAINFLUENZA VIRUS 1 NOT DETECTED; PARAINFLUENZA VIRUS 2 NOT DETECTED; PARAINFLUENZA VIRUS 3 NOT DETECTED; PARAINFLUENZA VIRUS 4 NOT DETECTED; RHINOVIRUS/ENTEROVIRUS NOT DETECTED; RSV- RESP PCR PANEL NOT DETECTED; SARS-CoV-2 -RESP PCR PANEL NOT DETECTED
== END 2020-12-23 03:15 | disposition home or self-care (01) ==
LOC: EDUNIT# → ED 21:17
DX: F10.221 Alcohol dependence with intoxication delirium (principal); Y90.8 Blood alcohol level of 240 mg/100 ml or more; R09.02 Hypoxemia; J98.11 Atelectasis; I10 Essential (primary) hypertension; Z20.822 Contact with and (suspected) exposure to COVID-19
CPT/HCPCS: 36415; 71045; 80053; 80306; 81003; 83690; 83735; 85025; 87631; 96365; 96366; 96375; 99284; G0480; J3411; 0202U; 80320; 81001; 87086

== ENCOUNTER 2021-01-09 12:23 | Outpatient (CLI) | payer MEDICARE, MEDICAID ==
--- NOTE | 2021-01-10 12:50 | Ultrasound Report ---
LIMITED ULTRASOUND OF RIGHT BREAST: 01/09/2021 CLINICAL: Palpable right breast lump and focal pain. Comparison is made to exam dated: 01/09/2021 mammogram - [facility]. Color flow and real-time ultrasound of the right breast 9 o'clock, and retroareolar regions were perf ormed. Muhammad scale images of the real-time examination were reviewed. There is gynecomastia in the right breast that correlates with mammography, clinical concern, and pal pable abnormality. Comparison images of the left breast demonstrates gynecomastia similiar in appear ance as the right. Both breasts demonstrated gynecomastia on today's mammogram which was larger and m ore prominent on the right. IMPRESSION: BENIGN There is no sonographic evidence of malignancy. Bilateral right greater than left gynecomastia. Recommend clinical follow up for persistent or worsening symptoms, or development of any new clinical ly suspicious findings. Findings and recommendations were conveyed to the patient during today's evaluation. This exam was interpreted at Station ID: [id number]. Electronically Signed By: Tremaine Arambula M.D. aty/:01/09/2021 16:04:14 Ultrasound BI-RADS: 2 Benign BI-RADS CATEGORY: (2) - 2 Unspecified - other recall n/a LATERALITY: (B)
--- NOTE | 2021-01-10 12:50 | Mammography Report ---
MALE BILATERAL DIGITAL DIAGNOSTIC MAMMOGRAM 3D/2D: 01/09/2021 CLINICAL: Palpable right breast lump. No prior exams were available for comparison. There is gynecomastia in the right breast with triangle skin marker visualized in the sub-areolar dep th in the upper outer quadrant that correlates with clinical concern and palpable abnormality. There also is gynecomastia in the left breast which appears less prominent and smaller in size compared to the right breast. No significant masses, calcifications, or other findings are seen in either breast. IMPRESSION: INCOMPLETE: NEEDS ADDITIONAL IMAGING EVALUATION Bilateral gynecomastia larger and more pronounced on the right. The area of palpable concern localiz es to the upper outer margin of the gynecomastia. An ultrasound is recommended for further evaluation and is scheduled to immediately follow this examination. This exam was interpreted at Station ID: [id number]. NOTE: For mammograms, a report in lay terms will be sent to the patient. Approximately 15% of breast malignancies will not be visualized mammographically. In the management of a palpable breast mass, a negative mammogram must not discourage biopsy of a clinically suspicious lesion. Electronically Signed By: Tremaine Arambula M.D. aty/:01/09/2021 13:41:52 ACR BI-RADS Category 0: Incomplete 3340F PARENCHYMAL PATTERN: (A) - The breast(s) demonstrate(s) scattered fibroglandular densities. BI-RADS CATEGORY: (0) - 0 Ultrasound [id number] Immediate follow-up LATERALITY: (B)
== END 2021-01-09 12:24 | disposition home or self-care (01) ==
LOC: DI 12:23
PROVIDERS: ATTEND Family Medicine
DX: N63.13 Unspecified lump in the right breast, lower outer quadrant (principal); N62 Hypertrophy of breast

== ENCOUNTER 2021-01-29 20:40 | Emergency (ER) | payer MEDICARE, MEDICAID ==
[2021-01-29 20:47] VITALS: BP 135/98
[2021-01-29] MEDS ORDERED: ONDANSETRON 4 MG/2 ML VIAL IVP STA (21:57)
[2021-01-29] MEDS ORDERED: SODIUM CHLORIDE 0.9% 1,000 ML IV STA (21:57)
== END 2021-01-29 21:45 | disposition left against medical advice (07) ==
LOC: ED 20:40
DX: Z53.21 Procedure and treatment not carried out due to patient leaving prior to being seen by health care provider (principal)
CPT/HCPCS: 80053; 80320; 83605; 83690; 83735; 85025

== ENCOUNTER 2021-02-13 14:00 | Outpatient (CLI) | payer MEDICARE, MEDICAID ==
[2021-02-13 18:25] LABS: ALBUMIN 4.9 g/dL (3.2-5.5); BILIRUBIN,DIRECT 0.1 mg/dL (0.1-0.5); BILIRUBIN,TOTAL 0.8 mg/dL (0.2-1.0); CALCIUM 10.3 mg/dL (8.5-10.3); POTASSIUM 5.5 mmol/L (3.5-5.0); TOTAL PROTEIN 8.3 g/dL (6.7-8.2)
[2021-02-14 12:07] LABS: HEPATITIS B SURFACE ANTIGEN NON-REACTIVE (NON-REACTIVE)
[2021-02-14 12:08] LABS: HEPATITIS A AB TOTAL(IMMUNITY) REACTIVE (NON-REACTIVE); HEPATITIS B CORE AB TOTAL NON-REACTIVE (NON-REACTIVE)
[2021-02-14 16:12] LABS: HIV AG/AB 4TH GEN NON-REACTIVE (NON-REACTIVE)
== END 2021-02-13 14:01 | disposition home or self-care (01) ==
LOC: LAB.N 14:00
PROVIDERS: ATTEND Emergency Medicine
DX: F11.20 Opioid dependence, uncomplicated (principal)
CPT/HCPCS: 36415; 80048; 80076; 84439; 86317; 86704; 86705; 86708; 86709; 87340; G0475; 81599; 85025; 87389; 87522

== ENCOUNTER 2021-02-21 08:47 | Outpatient (CLI) | payer MEDICARE, MEDICAID | END 2021-02-21 08:48 | disposition critical access hospital (66) | LOC: EMS 08:47 | DX: H53.2 Diplopia (principal) | CPT/HCPCS: A0425; A0429 ==

== ENCOUNTER 2021-02-21 09:10 | Emergency (ER) | payer MEDICARE, MEDICAID ==
[2021-02-21 09:21] VITALS: BP 105/76
[2021-02-21] MEDS ORDERED: THIAMINE INJ 100 MG in SODIUM CHLORIDE 0.9% 50 ML IV STA (09:47)
[2021-02-21] MEDS ORDERED: FOLIC ACID INJ 1 MG, THIAMINE INJ 100 MG, MAGNESIUM SULFATE 2 GM, MULTIVITAMIN 10 ML in... IV STA ×5 (09:48)
--- NOTE | 2021-02-21 09:49 | ED Physician Documentation ---
History of Present Illness - Stated complaint Stated Complaint: GLF - Chief complaint Chief Complaint: Trauma Hd/Nk - History obtained from History obtained from: Patient - History of Present Illness Timing: How many days ago (1) Pain level now: 7 (Normal pain level is 6/10 in R hip and 8-9/10 in low back) - Additonal information Additional information: This is a 55-year-old man who voluntarily went into the detox center in [place] yesterday. He had 2 ground-level falls yesterday which she believes was being related to the fact that they had requested him to use a walker and when he was trying to stand up and navigate with that walker he lost his balance fell over and kind got tangled up in the walker. He suffered an abrasion to the back of the right wrist and a small scratch to the right side of his head. Went to bed last night and slept very soundly and they came in this morning for their morning rounds waking him up and he complained of double vision at which point they immediately called the ambulance and sent him in for evaluation. He says he has no visual changes now he thinks that was related the fact that he was in such a deep sound asleep. He has no acute pain he is rating his pain at a 7-8 out of 10 but his normal pain is 6 out of 10 in his right hip and 8 9 out of 10 in his lower back. He is in the treatment center for alcohol and opioid withdrawal. He says he has been drinking about 1/5 of alcohol daily up until 2 days ago. He has been through treatment facilities previously recently was at the same treatment facility when he "got pissed off" and left says he cannot remember now what prompted his anger. Patient did not pass out during the fall. 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 His last tetanus vaccine was 7 years ago. Reports no acute illnesses. Review of Systems Constitutional: denies: Fever Eyes: reports: Other (Vision disturbance now resolved) Ears: denies: Tinnitus/ringing Nose: denies: Congestion Respiratory: denies: Dyspnea, Cough GI: denies: Abdominal Pain, Nausea, Vomiting : denies: Dysuria Skin: reports: Abrasion (s) (R wrist and R scalp) Musculoskeletal: reports: Back pain (chronic), Joint pain (chroninc) Neurologic: reports: Other (Neuropathy and balance disturbance since diagnosed and treated for Guillan-Levant in past) Psychiatric: reports: Anxiety. denies: Hallucinations PD PAST MEDICAL HISTORY - Past Medical History Past Medical History: Yes Cardiovascular: Hypertension, High cholesterol Respiratory: Sleep apnea, CPAP use Neuro: Headaches, Other (Guillan-Levant Syndrome) Endocrine/Autoimmune: None, Other GI: GERD, Pancreatitis, Cirrhosis : Incontinence HEENT: None Psych: Depression, Anxiety, Panic attacks, Claustrophobia Musculoskeletal: Osteoarthritis Derm: None - Past Surgical History Past Surgical History: Yes Ortho: Hip replacement, Arthroscopic surgery HEENT: Tracheostomy - Present Medications Home Medications: Ambulatory Orders Medication Instructions Recorded Confirmed Furosemide [Lasix] 40 mg PO DAILY 08/19/19 02/21/21 Cholecalciferol [Vitamin D3] 1,000 units PO DAILY 01/17/20 02/21/21 Multivitamin W/Minerals [Theragran 1 each PO DAILY 01/17/20 02/21/21 M] Propranolol [Inderal] 30 mg PO BID 01/17/20 02/21/21 Pantoprazole Sodium 40 mg PO DAILY 06/14/20 02/21/21 Doxepin [SINEquan] 50 mg PO QPM 11/23/20 02/21/21 Gabapentin [Neurontin] 300 mg PO TID 11/23/20 02/21/21 Folic Acid/Vit B Complex and C 1 tab PO DAILY 11/24/20 02/21/21 [B-Complex with Vit C Tablet] LORazepam [Ativan] 1 mg PO BID #0 11/27/20 02/21/21 Ondansetron Odt [Zofran Odt] 4 mg TL Q6H PRN #20 tablet 12/09/20 02/21/21 Spironolactone [Aldactone] 100 mg PO DAILY 12/13/20 02/21/21 Thiamine [Vitamin B-1] 100 mg PO DAILY #30 tablet 12/15/20 02/21/21 hydrOXYzine pamoate [Vistaril] 50 mg Q6HR PRN 02/21/21 02/21/21 methocarbamoL [Methocarbamol] 2 tab Q6HR PRN 02/21/21 02/21/21 - Allergies Allergies/Adverse Reactions: Allergies Allergy/AdvReac Type Severity Reaction Status Date / Time lisinopril Allergy Mild Anaphylaxis Verified 01/29/21 20:44 - Social History Does the pt smoke?: No Smoking Status: Never smoker Does the pt drink ETOH?: No Does the pt have substance abuse?: No - Immunizations Immunizations are current?: Yes Immunizations: Other immun not current - POLST Patient has POLST: No POLST Status: Full Code (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 and 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, 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.) PD ED PE NORMAL - Vitals Vital signs reviewed: Yes - General General: 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, No acute distress, Well developed/nourished - HEENT HEENT: PERRL, EOMI, Other (small superficial abrasion to R pareital scalp) - Neck Neck: No adenopathy - Cardiac Cardiac: RRR, No murmur - Respiratory Respiratory: No respiratory distress - Abdomen Abdomen: Normal bowel sounds, Non tender, Other (Liver edge palpable below R costal margin) - Extremities Extremities: No deformity, Other (1+ edema to LE bilat; L wrist with chronic swelling and some limited ROM, no acute pain to palpation or bruising) - Neuro Neuro: 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, process project engineer 2-12 intact, Normal speech, Other (Decreased sensation legs distal bilat; moving all extrem equally) - Psych Psych: Normal mood Results - Vitals Vitals: Vital Signs - 24 hr 02/21/21 09:11 Temperature 35.8 C L Heart Rate 94 Respiratory 16 Rate Blood Pressure 105/76 O2 Saturation 97 Oxygen O2 Source Room air - Labs Labs: Laboratory Tests 02/21/21 02/21/21 02/21/21 10:06 10:06 10:25 WBC 3.8 L RBC 4.30 L Hgb 14.6 Hct 41.2 L MCV 95.8 H MCH 34.0 H MCHC 35.4 RDW 12.7 Plt Count 296 MPV 8.8 Neut # (Auto) 2.5 Lymph # (Auto) 0.7 L [place] # (Auto) 0.2 Eos # (Auto) 0.3 Baso # (Auto) 0.0 Absolute Nucleated RBC 0.00 Nucleated RBC % 0.0 PT 10.0 INR 0.9 Sodium Potassium Chloride Carbon Dioxide Anion Gap BUN Creatinine Estimated GFR (MDRD) Glucose Calcium Phosphorus Magnesium Total Bilirubin AST ALT Alkaline Phosphatase Total Protein Albumin Globulin Albumin/Globulin Ratio Lipase Urine Color YELLOW Urine Clarity CLEAR Urine pH 6.0 Ur Specific [place] <=1.005 Urine Protein NEGATIVE Urine Glucose (UA) NEGATIVE Urine Ketones NEGATIVE Urine Occult Blood NEGATIVE Urine Nitrite NEGATIVE Urine Bilirubin NEGATIVE Urine Urobilinogen 0.2 (NORMAL) Ur Leukocyte Esterase NEGATIVE Ur Microscopic Review NOT INDICATED Urine Culture Comments NOT INDICATED Ethyl Alcohol 02/21/21 10:55 WBC RBC Hgb Hct MCV MCH MCHC RDW Plt Count MPV Neut # (Auto) Lymph # (Auto) [place] # (Auto) Eos # (Auto) Baso # (Auto) Absolute Nucleated RBC Nucleated RBC % PT INR Sodium 124 L Potassium 4.8 Chloride 83 L Carbon Dioxide 30 Anion Gap 11.0 BUN 28 H Creatinine 1.8 H Estimated GFR (MDRD) 39 L Glucose 112 H Calcium 9.4 Phosphorus 5.8 H Magnesium 2.3 Total Bilirubin 0.7 AST 25 ALT 18 Alkaline Phosphatase 84 Total Protein 7.7 Albumin 4.5 Globulin 3.2 Albumin/Globulin Ratio 1.4 Lipase 17 L Urine Color Urine Clarity Urine pH Ur Specific [place] Urine Protein Urine Glucose (UA) Urine Ketones Urine Occult Blood Urine Nitrite Urine Bilirubin Urine Urobilinogen Ur Leukocyte Esterase Ur Microscopic Review Urine Culture Comments Ethyl Alcohol < 5.0 PD MEDICAL DECISION MAKING - ED course Complexity details: d/w patient ED course: The patient was sleeping when I went in to reevaluate him. Is been kidney function has deteriorated recently although not significantly since it was last tested on February 13. BUN and creatinine today are 28 and 1.8. His phosphorus is a little elevated as well. Potassium is fine. He is hyponatremic which is also been present since mid February. He did get a dose of Ativan here for anxiety and was requesting something for the hip pain. I discussed with him I will not provide narcotics. He is not a candidate to take NSAIDs at this time he was given a dose of tramadol. He does want to be returned back to the detox center for continued treatment. I discussed with him that it is imperative he follow-up with his primary care provider regarding his laboratory abnormalities and he states understanding. Departure - Departure Disposition: 01 Home, Self Care Clinical Impression: Abrasion of scalp, Abrasion of wrist, ETOH abuse, Chronic pain Condition: Stable Instructions: ED Abrasion Follow-Up: Scheidt,Judye A, DO [Primary Care Provider] - Comments: It is imperative that you follow-up with your primary care provider and regarding the laboratory abnormalities of your kidney function. Do not take any further nonsteroidal anti-inflammatory such as ibuprofen, Motrin or Aleve even [id number] due to your kidney function. Continue outpatient detox treatment.
[2021-02-21 10:16] LABS: BILIRUBIN,URINE NEGATIVE (NEGATIVE); EOSINOPHILS # (AUTO) 0.3 10^3/uL (0.0-0.7); EOSINOPHILS % (AUTO) 8.1 %; GLUCOSE, URINE (UA) NEGATIVE (NEGATIVE); HCT - HEMATOCRIT 41.2 % (42.0-52.0); HGB - HEMOGLOBIN 14.6 g/dL (14.0-18.0); KETONES,URINE (UA) NEGATIVE (NEGATIVE); LEUKOCYTE ESTERASE, URINE NEGATIVE (NEGATIVE); LYMPHOCYTES # (AUTO) 0.7 10^3/uL (1.5-3.5); MEAN CORPUSCULAR HGB CONC 35.4 g/dL (32.0-36.0); MEAN CORPUSCULAR VOLUME 95.8 fL (80.0-94.0); MEAN PLATELET VOLUME 8.8 fL (7.4-11.4); MONOCYTES # (AUTO) 0.2 10^3/uL (0.0-1.0); NEUTROPHILS # (AUTO) 2.5 10^3/uL (1.5-6.6); NEUTROPHILS % (AUTO) 66.4 %; NITRITE,URINE NEGATIVE (NEGATIVE); OCCULT BLOOD,URINE NEGATIVE (NEGATIVE); PLT - PLATELET COUNT 296 10^3/uL (130-450); PROTEIN,URINE NEGATIVE (NEGATIVE); RED CELL DISTRIBUTION WIDTH 12.7 % (12.0-15.0); UROBILINOGEN,URINE 0.2 (NORMAL) E.U./dL (NORMAL); WHITE BLOOD COUNT 3.8 x10^3/uL (4.8-10.8)
[2021-02-21 10:23] LABS: CLARITY,URINE CLEAR (CLEAR)
[2021-02-21 10:36] LABS: INR 0.9 (0.8-1.2)
[2021-02-21 11:12] LABS: ALBUMIN 4.5 g/dL (3.2-5.5); ALBUMIN/GLOBULIN RATIO 1.4 (1.0-2.2); ALKALINE PHOSPHATASE 84 IU/L (42-121); ALT ALANINE AMINOTRANSFERASE 18 IU/L (10-60); AST ASPARTATE AMINOTRANSFERASE 25 IU/L (10-42); BILIRUBIN,TOTAL 0.7 mg/dL (0.2-1.0); BUN - BLOOD UREA NITROGEN 28 mg/dL (6-20); CALCIUM 9.4 mg/dL (8.5-10.3); CARBON DIOXIDE - CO2 30 mmol/L (21-32); CHLORIDE 83 mmol/L (101-111); CREATININE 1.8 mg/dL (0.6-1.2); ETOH - ETHANOL < 5.0 mg/dL; GFR - MDRD 39 (>89); GLUCOSE 112 mg/dL (70-100); LIPASE 17 U/L (22-51); MAGNESIUM 2.3 mg/dL (1.7-2.8); PHOSPHORUS 5.8 mg/dL (2.5-4.6); POTASSIUM 4.8 mmol/L (3.5-5.0); SODIUM 124 mmol/L (135-145); TOTAL PROTEIN 7.7 g/dL (6.7-8.2)
[2021-02-21] MEDS ORDERED: LORazepam 1 MG TABLET PO STA (12:09)
[2021-02-21] MEDS ORDERED: traMADol 50 MG TABLET PO STA (12:20)
== END 2021-02-21 13:44 | disposition home or self-care (01) ==
LOC: EDUNIT# → ED 09:10
DX: F10.10 Alcohol abuse, uncomplicated (principal); E87.1 Hypo-osmolality and hyponatremia; F41.9 Anxiety disorder, unspecified; R94.4 Abnormal results of kidney function studies; S00.01XA Abrasion of scalp, initial encounter; S60.811A Abrasion of right wrist, initial encounter; M25.551 Pain in right hip; G89.29 Other chronic pain; W18.39XA Other fall on same level, initial encounter; Y93.89 Activity, other specified; Y92.199 Unspecified place in other specified residential institution as the place of occurrence of the external cause
CPT/HCPCS: 36415; 80053; 81003; 83690; 83735; 84100; 85025; 85610; 96365; 99283; 99284; A9270; G0480; J3411; J7040; J8499; 80320; 81001; 87086

== ENCOUNTER 2021-03-15 14:42 | Outpatient (CLI) | payer MEDICARE, MEDICAID ==
--- NOTE | 2021-03-16 11:01 | XRAY Report ---
PROCEDURE: Wrist 3 View LT INDICATIONS: LEFT WRIST PAIN TECHNIQUE: 3 views of the wrist were acquired. COMPARISON: 10/27/2011 FINDINGS: Bones: No acute fractures or dislocations. There is a remote distal fifth metacarpal fracture. A lik osei remote fracture can be seen involving the second metacarpal base. No suspicious bony lesions. Degenerative changes can be seen throughout the carpus, including the first metacarpal joint and the radial ulnar joint. Since 2011, there is been reshaping of the distal ulna. On the lateral view, the lunate appears subluxed dorsally. Scaphoid view: No scaphoid fractures are seen. Soft tissues: No suspicious soft tissue calcifications. IMPRESSION: Degenerative changes and remote posttraumatic changes are seen. Dorsal subluxation of the lunate can be seen on the lateral view. Since 2011, there has been reshaping of the distal ulna. Please correlate with known patient history. Please consider a follow-up wrist CT or MRI for further evaluation (assuming that there is no contrai ndication). Reviewed by: Billy Antunez MD on 03/16/2021 10:00 AM RACHID Approved by: Billy Antunez MD on 03/16/2021 10:00 AM RACHID Station ID: [id number]
== END 2021-03-15 14:43 ==
LOC: DI.N 14:42
PROVIDERS: ATTEND Family Medicine
DX: M19.032 Primary osteoarthritis, left wrist (principal); S63.092A Other subluxation of left wrist and hand, initial encounter; R93.6 Abnormal findings on diagnostic imaging of limbs

== ENCOUNTER 2021-03-31 21:01 | Outpatient (CLI) | payer MEDICARE, MEDICAID | END 2021-03-31 21:02 | disposition critical access hospital (66) | LOC: EMS 21:01 | DX: Z76.89 Persons encountering health services in other specified circumstances (principal) | CPT/HCPCS: A0425; A0429 ==

== ENCOUNTER 2021-03-31 21:20 | Emergency (ER) | payer MEDICARE, MEDICAID ==
[2021-03-31] MEDS ORDERED: THIAMINE INJ 100 MG, MAGNESIUM SULFATE 2 GM, MULTIVITAMIN 10 ML in SODIUM CHLORIDE 0.9%... IM ONE (21:38)
--- NOTE | 2021-03-31 21:44 | ED Physician Documentation ---
History of Present Illness - Stated complaint Stated Complaint: WANTS TO GET SOBER - Chief complaint Chief Complaint: General - History obtained from History obtained from: Patient, EMS - Additonal information Additional information: 56-year-old man brought in by EMS from his mother's home where he lives with acute alcohol intoxication. Patient called 911 and apparently said that he wanted alcoholic detox. Endorses drinking several alcoholic beverages tonight. Clinically intoxicated upon EMS arrival. Fingerstick in the field was normal. Patient admits to daily alcohol use. Also with track zacarias to left arm per EMS. patient endorsed emotional distress to EMS workers but denied SI/HI/AVH. History limited in the ED by patient intoxication. When asked how he's feeling he says "great". answering yes/no questions only after initially telling us his name. 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) Endocrine/Autoimmune: None, Other GI: GERD, Pancreatitis, Cirrhosis : Incontinence HEENT: None Psych: Depression, Anxiety, Panic attacks, Claustrophobia Musculoskeletal: Osteoarthritis Derm: None - Past Surgical History Past Surgical History: Yes Ortho: Hip replacement, Arthroscopic surgery HEENT: Tracheostomy - Present Medications Home Medications: Ambulatory Orders Medication Instructions Recorded Confirmed Furosemide [Lasix] 40 mg PO DAILY 08/19/19 03/31/21 Cholecalciferol [Vitamin D3] 1,000 units PO DAILY 01/17/20 03/31/21 Multivitamin W/Minerals [Theragran 1 each PO DAILY 01/17/20 03/31/21 M] Propranolol [Inderal] 30 mg PO BID 01/17/20 03/31/21 Pantoprazole Sodium 40 mg PO DAILY 06/14/20 03/31/21 Doxepin [SINEquan] 50 mg PO QPM 11/23/20 03/31/21 Gabapentin [Neurontin] 300 mg PO TID 11/23/20 03/31/21 Folic Acid/Vit B Complex and C 1 tab PO DAILY 11/24/20 03/31/21 [B-Complex with Vit C Tablet] LORazepam [Ativan] 1 mg PO BID #0 11/27/20 03/31/21 Ondansetron Odt [Zofran Odt] 4 mg TL Q6H PRN #20 tablet 12/09/20 03/31/21 Spironolactone [Aldactone] 100 mg PO DAILY 12/13/20 03/31/21 Thiamine [Vitamin B-1] 100 mg PO DAILY #30 tablet 12/15/20 03/31/21 hydrOXYzine pamoate [Vistaril] 50 mg Q6HR PRN 02/21/21 03/31/21 methocarbamoL [Methocarbamol] 2 tab Q6HR PRN 02/21/21 03/31/21 - Allergies Allergies/Adverse Reactions: Allergies Allergy/AdvReac Type Severity Reaction Status Date / Time lisinopril Allergy Mild Anaphylaxis Verified 03/31/21 21:25 - Social History Does the pt smoke?: No Smoking Status: Never smoker Does the pt drink ETOH?: No Does the pt have substance abuse?: No - Immunizations Immunizations are current?: Yes Immunizations: Other immun not current - POLST Patient has POLST: No POLST Status: Full Code (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, 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.) PD ED PE NORMAL - Vitals Vital signs reviewed: Yes - General General: No acute distress, Well developed/nourished, Other (alert, clinically intoxicated) - HEENT HEENT: Atraumatic, PERRL, EOMI, Moist mucous membranes, Pharynx benign - Neck Neck: Supple, no meningeal sign - Cardiac Cardiac: RRR - Respiratory Respiratory: No respiratory distress, Clear bilaterally - Abdomen Abdomen: Non tender, Non distended - Derm Derm: Normal color, Warm and dry - Extremities Extremities: No deformity - Neuro Neuro: 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, vest front presser 2-12 intact, No motor deficit, No sensory deficit, Other (clinically intoxicated) - Psych Psych: Other (clinically intoxicated) Results - Vitals Vitals: Vital Signs - 24 hr 03/31/21 03/31/21 03/31/21 21:25 22:05 22:29 Temperature 36.5 C Heart Rate 100 102 H 97 Respiratory 16 14 17 Rate Blood Pressure 114/84 H 105/73 105/73 O2 Saturation 100 92 95 03/31/21 03/31/21 04/01/21 23:00 23:59 00:45 Temperature 36.1 C L Heart Rate 97 98 102 H Respiratory 14 12 16 Rate Blood Pressure 116/88 H 116/92 H 118/96 H O2 Saturation 94 94 94 04/01/21 04/01/21 04/01/21 01:16 03:04 05:00 Temperature Heart Rate 95 97 92 Respiratory 15 15 18 Rate Blood Pressure 145/105 H 136/98 H 110/77 O2 Saturation 97 95 96 Oxygen O2 Source Room air - Labs Labs: Laboratory Tests 03/31/21 03/31/21 03/31/21 21:40 21:40 21:40 WBC 6.5 RBC 3.86 L Hgb 13.3 L Hct 37.9 L MCV 98.2 H MCH 34.5 H MCHC 35.1 RDW 14.6 Plt Count 212 MPV 8.4 Neut # (Auto) 2.3 Lymph # (Auto) 3.0 [place] # (Auto) 0.9 Eos # (Auto) 0.2 Baso # (Auto) 0.1 Absolute Nucleated RBC 0.00 Nucleated RBC % 0.0 Sodium 135 Potassium 3.4 L Chloride 96 L Carbon Dioxide 21 Anion Gap 18.0 H BUN 8 Creatinine 0.7 Estimated GFR (MDRD) 116 Glucose 89 Calcium 8.8 Total Bilirubin 0.5 AST 32 ALT 18 Alkaline Phosphatase 81 Total Protein 7.2 Albumin 3.9 Globulin 3.3 Albumin/Globulin Ratio 1.2 Lipase 23 TSH 2.10 Urine Color Urine Clarity Urine pH Ur Specific [place] Urine Protein Urine Glucose (UA) Urine Ketones Urine Occult Blood Urine Nitrite Urine Bilirubin Urine Urobilinogen Ur Leukocyte Esterase Ur Microscopic Review Urine Culture Comments Salicylates < 6.0 Urine Opiates Screen Ur Oxycodone Screen Urine Methadone Screen Ur Propoxyphene Screen Acetaminophen < 10 L Ur Barbiturates Screen Ur Tricyclics Screen Ur Phencyclidine Scrn Ur Amphetamine Screen U Methamphetamines Scrn U Benzodiazepines Scrn Urine Cocaine Screen U Cannabinoids Screen Ethyl Alcohol 450.9 04/01/21 01:05 WBC RBC Hgb Hct MCV MCH MCHC RDW Plt Count MPV Neut # (Auto) Lymph # (Auto) [place] # (Auto) Eos # (Auto) Baso # (Auto) Absolute Nucleated RBC Nucleated RBC % Sodium Potassium Chloride Carbon Dioxide Anion Gap BUN Creatinine Estimated GFR (MDRD) Glucose Calcium Total Bilirubin AST ALT Alkaline Phosphatase Total Protein Albumin Globulin Albumin/Globulin Ratio Lipase TSH Urine Color YELLOW Urine Clarity CLEAR Urine pH 6.5 Ur Specific [place] <=1.005 Urine Protein NEGATIVE Urine Glucose (UA) NEGATIVE Urine Ketones 15 H Urine Occult Blood NEGATIVE Urine Nitrite NEGATIVE Urine Bilirubin NEGATIVE Urine Urobilinogen 0.2 (NORMAL) Ur Leukocyte Esterase NEGATIVE Ur Microscopic Review NOT INDICATED Urine Culture Comments NOT INDICATED Salicylates Urine Opiates Screen NEGATIVE Ur Oxycodone Screen NEGATIVE Urine Methadone Screen NEGATIVE Ur Propoxyphene Screen NEGATIVE Acetaminophen Ur Barbiturates Screen NEGATIVE Ur Tricyclics Screen NEGATIVE Ur Phencyclidine Scrn NEGATIVE Ur Amphetamine Screen NEGATIVE U Methamphetamines Scrn NEGATIVE U Benzodiazepines Scrn POSITIVE H Urine Cocaine Screen NEGATIVE U Cannabinoids Screen POSITIVE H Ethyl Alcohol PD MEDICAL DECISION MAKING - ED course ED course: d/w mother Argentina Sanz who states patient has been drinking heavily tonight. Stew has been having a hard time finding a place for alcohol detox treatment. Has spoken on the phone with several places and has had trouble. Was told Prov and then Chelsie but they told him to go to the emergency department. Patient hasn't eaten all day. Argentina believes the patient was emotionally distressed that there was nothing available for inpatient treatment so he called EMS. Patient has had at least a fifth of hard liquor tonight but she is not completely sure of quantity. Argentina also thinks the patient may have taken a larger number of his lorazepam antianxiety pills than usual today since he has been emotionally upset due to detox treatment issues. Patient has [facility]" appointment tomorrow for guidance in outpatient alcohol treatment but Argentina says he has expressed misgivings about outpatient treatment. ELLIS pierson d/w patient later in the evening and he is open to outpatient treatment. His appointment is this afternoon and his mother says she can pick him up after 9am. Will have social work see him and discuss additional resources. Patient endorsed to Dr. Veronica, tracey PRIEST. Departure - Departure Clinical Impression: Alcohol abuse Condition: Stable Instructions: ED Alcohol Abuse Comments: You were seen in the emergency department for acute alcohol intoxication. Make sure that you do not take Ativan with alcohol because they can interact and can be incredibly dangerous. Please follow-up with outpatient alcohol addiction treatment. Follow-up with your primary doctor as well and return to the emergency department if you have any new or worsening symptoms or other concerns.
[2021-03-31 21:45] LABS: BASOPHILS # (AUTO) 0.1 10^3/uL (0.0-0.1); BASOPHILS % (AUTO) 1.1 %; EOSINOPHILS # (AUTO) 0.2 10^3/uL (0.0-0.7); EOSINOPHILS % (AUTO) 3.2 %; HCT - HEMATOCRIT 37.9 % (42.0-52.0); HGB - HEMOGLOBIN 13.3 g/dL (14.0-18.0); LYMPHOCYTES % (AUTO) 45.7 %; MEAN CORPUSCULAR HEMOGLOBIN 34.5 pg (27.0-31.0); MEAN CORPUSCULAR HGB CONC 35.1 g/dL (32.0-36.0); MEAN CORPUSCULAR VOLUME 98.2 fL (80.0-94.0); MEAN PLATELET VOLUME 8.4 fL (7.4-11.4); MONOCYTES # (AUTO) 0.9 10^3/uL (0.0-1.0); MONOCYTES % (AUTO) 13.8 %; NEUTROPHILS # (AUTO) 2.3 10^3/uL (1.5-6.6); NEUTROPHILS % (AUTO) 35.9 %; PLT - PLATELET COUNT 212 10^3/uL (130-450); RED BLOOD COUNT 3.86 10^6/uL (4.70-6.10); RED CELL DISTRIBUTION WIDTH 14.6 % (12.0-15.0); WHITE BLOOD COUNT 6.5 x10^3/uL (4.8-10.8)
[2021-03-31] MEDS ORDERED: THIAMINE INJ 100 MG, MAGNESIUM SULFATE 2 GM, MULTIVITAMIN 10 ML in SODIUM CHLORIDE 0.9%... IV ONE (21:45)
[2021-03-31] MEDS ORDERED: THIAMINE 100 MG/1 ML 2 ML MDV ONE (21:46)
[2021-03-31] MEDS ORDERED: MAGNESIUM SULFATE 1 GM/2 ML VIAL ONE (21:46)
[2021-03-31 22:03] LABS: ACETAMINOPHEN < 10 ug/mL (10-30); ALBUMIN 3.9 g/dL (3.2-5.5); ALBUMIN/GLOBULIN RATIO 1.2 (1.0-2.2); ALKALINE PHOSPHATASE 81 IU/L (42-121); ALT ALANINE AMINOTRANSFERASE 18 IU/L (10-60); AST ASPARTATE AMINOTRANSFERASE 32 IU/L (10-42); BILIRUBIN,TOTAL 0.5 mg/dL (0.2-1.0); BUN - BLOOD UREA NITROGEN 8 mg/dL (6-20); CALCIUM 8.8 mg/dL (8.5-10.3); CARBON DIOXIDE - CO2 21 mmol/L (21-32); CHLORIDE 96 mmol/L (101-111); CREATININE 0.7 mg/dL (0.6-1.2); ETOH - ETHANOL 450.9 mg/dL; GFR - MDRD 116 (>89); GLUCOSE 89 mg/dL (70-100); LIPASE 23 U/L (22-51); POTASSIUM 3.4 mmol/L (3.5-5.0); SALICYLATE < 6.0 mg/dL; SODIUM 135 mmol/L (135-145); TOTAL PROTEIN 7.2 g/dL (6.7-8.2)
[2021-04-01 01:12] LABS: MUDS CUTOFF CONCENTRATIONS CUTOFF CONC BELOW:
[2021-04-01 01:22] LABS: BILIRUBIN,URINE NEGATIVE (NEGATIVE); CLARITY,URINE CLEAR (CLEAR); GLUCOSE, URINE (UA) NEGATIVE (NEGATIVE); KETONES,URINE (UA) 15 mg/dL (NEGATIVE); LEUKOCYTE ESTERASE, URINE NEGATIVE (NEGATIVE); NITRITE,URINE NEGATIVE (NEGATIVE); OCCULT BLOOD,URINE NEGATIVE (NEGATIVE); PH,URINE 6.5 PH (5.0-7.5); PROTEIN,URINE NEGATIVE (NEGATIVE); UROBILINOGEN,URINE 0.2 (NORMAL) E.U./dL (NORMAL)
[2021-04-01 01:32] LABS: AMPHETAMINE SCREEN,URINE NEGATIVE (NEGATIVE); BARBITURATE SCREEN,UR NEGATIVE (NEGATIVE); BENZODIAZEPINES SCREEN, URINE POSITIVE (NEGATIVE); COCAINE SCREEN URINE NEGATIVE (NEGATIVE); METHADONE SCREEN, URINE NEGATIVE (NEGATIVE); METHAMPHETAMINES SCREEN, URINE NEGATIVE (NEGATIVE); OPIATE SCREEN, URINE NEGATIVE (NEGATIVE); OXYCODONE SCREEN, URINE NEGATIVE (NEGATIVE); PROPOXYPHENE SCREEN, URINE NEGATIVE (NEGATIVE); THC CANNABINOID SCREEN, URINE POSITIVE (NEGATIVE); TRICYCLIC ANTIDEPRESSANT,URINE NEGATIVE (NEGATIVE)
[2021-04-01 07:01] VITALS: BP 119/81
== END 2021-04-01 09:03 | disposition home or self-care (01) ==
LOC: EDUNIT# → EDBD → ED 21:20
DX: F10.129 Alcohol abuse with intoxication, unspecified (principal); Y90.8 Blood alcohol level of 240 mg/100 ml or more; I10 Essential (primary) hypertension; G47.30 Sleep apnea, unspecified; G61.0 Guillain-Barre syndrome; K85.90 Acute pancreatitis without necrosis or infection, unspecified; K74.60 Unspecified cirrhosis of liver; K21.9 Gastro-esophageal reflux disease without esophagitis; R32 Unspecified urinary incontinence; F32.9 Major depressive disorder, single episode, unspecified; F41.9 Anxiety disorder, unspecified; F41.0 Panic disorder [episodic paroxysmal anxiety]; F40.240 Claustrophobia; Z79.899 Other long term (current) drug therapy
CPT/HCPCS: 36415; 80053; 80306; 80307; 81003; 83690; 84443; 85025; 96365; 96366; 99281; 99284; G0480; J3411; 80320; 80329; 81001; 87086

== ENCOUNTER 2021-04-01 09:19 | Emergency (ER) | payer MEDICARE, MEDICAID ==
[2021-04-01 09:45] VITALS: BP 158/88
--- NOTE | 2021-04-01 10:17 | ED Physician Documentation ---
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 He states he has no physical complaints, but would like to talk to social services designee about resources for inpatient alcohol treatment. Review of Systems Ten Systems: 10 systems reviewed and negative Constitutional: reports: Reviewed and negative Eyes: reports: Reviewed and negative Ears: reports: Reviewed and negative Nose: reports: Reviewed and negative Throat: reports: Reviewed and negative Cardiac: reports: Reviewed and negative Respiratory: reports: Reviewed and negative GI: reports: Reviewed and negative : reports: Reviewed and negative Skin: reports: Reviewed and negative Musculoskeletal: reports: Reviewed and negative Neurologic: reports: Reviewed and negative Psychiatric: reports: Reviewed and negative Endocrine: reports: Reviewed and negative Immunocompromised: reports: Reviewed and negative PD PAST MEDICAL HISTORY - Past Medical History Cardiovascular: Hypertension, High cholesterol Respiratory: Sleep apnea, CPAP use Neuro: Headaches, 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) Endocrine/Autoimmune: None, Other GI: GERD, Pancreatitis, Cirrhosis : Incontinence HEENT: None Psych: Depression, Anxiety, Panic attacks, Claustrophobia Musculoskeletal: Osteoarthritis Derm: None - Past Surgical History Past Surgical History: Yes Ortho: Hip replacement, Arthroscopic surgery HEENT: Tracheostomy - Present Medications Home Medications: Ambulatory Orders Medication Instructions Recorded Confirmed Furosemide [Lasix] 40 mg PO DAILY 08/19/19 03/31/21 Cholecalciferol [Vitamin D3] 1,000 units PO DAILY 01/17/20 03/31/21 Multivitamin W/Minerals [Theragran 1 each PO DAILY 01/17/20 03/31/21 M] Propranolol [Inderal] 30 mg PO BID 01/17/20 03/31/21 Pantoprazole Sodium 40 mg PO DAILY 06/14/20 03/31/21 Doxepin [SINEquan] 50 mg PO QPM 11/23/20 03/31/21 Gabapentin [Neurontin] 300 mg PO TID 11/23/20 03/31/21 Folic Acid/Vit B Complex and C 1 tab PO DAILY 11/24/20 03/31/21 [B-Complex with Vit C Tablet] LORazepam [Ativan] 1 mg PO BID #0 06/22/21 10/24/21 Ondansetron Odt [Zofran Odt] 4 mg TL Q6H PRN #20 tablet 12/09/20 03/31/21 Spironolactone [Aldactone] 100 mg PO DAILY 12/13/20 03/31/21 Thiamine [Vitamin B-1] 100 mg PO DAILY #30 tablet 12/15/20 03/31/21 hydrOXYzine pamoate [Vistaril] 50 mg Q6HR PRN 02/21/21 03/31/21 methocarbamoL [Methocarbamol] 2 tab Q6HR PRN 02/21/21 03/31/21 - Allergies Allergies/Adverse Reactions: Allergies Allergy/AdvReac Type Severity Reaction Status Date / Time lisinopril Allergy Mild Anaphylaxis Verified 04/01/21 09:45 - Social History Does the pt smoke?: No Smoking Status: Never smoker Does the pt drink ETOH?: No Does the pt have substance abuse?: No - Immunizations Immunizations are current?: Yes Immunizations: Other immun not current - POLST Patient has POLST: No POLST Status: Full Code (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, 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.) PD ED PE NORMAL - Vitals Vital signs reviewed: Yes - General General: 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, No acute distress - HEENT HEENT: Atraumatic, PERRL, EOMI, Moist mucous membranes - Neck Neck: Supple, no meningeal sign - Cardiac Cardiac: RRR, No murmur - Respiratory Respiratory: No respiratory distress, Clear bilaterally - Abdomen Abdomen: Normal bowel sounds, Soft, Non tender, Non distended - Derm Derm: Warm and dry - Extremities Extremities: No deformity - Neuro Neuro: 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 - Psych Psych: Normal mood, Normal affect Results - Vitals Vitals: Oxygen O2 Source Room air PD MEDICAL DECISION MAKING - ED course Complexity details: considered differential, d/w patient ED course: Pt spoke with SW, as was his desire. He has an appt with his outpatient substance abuse counselor this afternoon, and is on the list for acceptance at an inpatient facility, as well. Pt is stable for d/c home. Departure - Departure Disposition: 01 Home, Self Care Clinical Impression: Alcohol abuse Condition: Stable Instructions: ED Alcohol Abuse Discharge Date/Time: 04/01/21 10:20
== END 2021-04-01 10:20 | disposition home or self-care (01) ==
LOC: ED 09:19
DX: F10.10 Alcohol abuse, uncomplicated (principal); F32.9 Major depressive disorder, single episode, unspecified; F41.0 Panic disorder [episodic paroxysmal anxiety]; F40.240 Claustrophobia; I10 Essential (primary) hypertension; G47.30 Sleep apnea, unspecified; K74.60 Unspecified cirrhosis of liver; K85.90 Acute pancreatitis without necrosis or infection, unspecified; K21.9 Gastro-esophageal reflux disease without esophagitis; R32 Unspecified urinary incontinence; Z79.899 Other long term (current) drug therapy
CPT/HCPCS: 99281; 99283

== ENCOUNTER 2021-05-30 21:35 | Outpatient (CLI) | payer MEDICARE, MEDICAID | END 2021-05-30 21:36 | disposition critical access hospital (66) | LOC: EMS 21:35 | DX: F10.129 Alcohol abuse with intoxication, unspecified (principal) | CPT/HCPCS: A0425; A0427 ==

== ENCOUNTER 2021-05-30 21:55 | Emergency (ER) | payer MEDICARE, MEDICAID ==
[2021-05-30] MEDS ORDERED: SODIUM CHLORIDE 0.9% 1,000 ML IV STA (22:10)
[2021-05-30 22:32] LABS: BASOPHILS % (AUTO) 0.6 %; EOSINOPHILS # (AUTO) 0.1 10^3/uL (0.0-0.7); EOSINOPHILS % (AUTO) 2.2 %; HCT - HEMATOCRIT 40.5 % (42.0-52.0); HGB - HEMOGLOBIN 14.1 g/dL (14.0-18.0); LYMPHOCYTES # (AUTO) 1.9 10^3/uL (1.5-3.5); MEAN CORPUSCULAR HEMOGLOBIN 34.1 pg (27.0-31.0); MEAN CORPUSCULAR HGB CONC 34.8 g/dL (32.0-36.0); MEAN CORPUSCULAR VOLUME 97.8 fL (80.0-94.0); MEAN PLATELET VOLUME 9.1 fL (7.4-11.4); MONOCYTES # (AUTO) 0.6 10^3/uL (0.0-1.0); MONOCYTES % (AUTO) 10.6 %; NEUTROPHILS # (AUTO) 2.8 10^3/uL (1.5-6.6); NEUTROPHILS % (AUTO) 51.2 %; PLT - PLATELET COUNT 201 10^3/uL (130-450); RED BLOOD COUNT 4.14 10^6/uL (4.70-6.10); RED CELL DISTRIBUTION WIDTH 12.8 % (12.0-15.0); WHITE BLOOD COUNT 5.4 x10^3/uL (4.8-10.8)
[2021-05-30 22:43] LABS: ALBUMIN 3.7 g/dL (3.2-5.5); ALBUMIN/GLOBULIN RATIO 1.1 (1.0-2.2); BILIRUBIN,TOTAL 0.6 mg/dL (0.2-1.0); CALCIUM 8.5 mg/dL (8.5-10.3); CREATININE 0.6 mg/dL (0.6-1.2); ETOH - ETHANOL 424.9 mg/dL; POTASSIUM 3.2 mmol/L (3.5-5.0); TOTAL PROTEIN 7.1 g/dL (6.7-8.2)
[2021-05-30] MEDS ORDERED: THIAMINE 100 MG TABLET PO STA (23:15)
--- NOTE | 2021-05-30 23:15 | ED Physician Documentation ---
"History of Present Illness - Stated complaint Stated Complaint: ETOH - Chief complaint Chief Complaint: Neuro - History obtained from History obtained from: Patient, EMS - Additonal information Additional information: 56yM with pmh etoh abuse p/w etoh intoxication. mother called ems after finding him unresponsive this evening. on ems arrival fingerstick was normal and patient was responsive to tactile stimuli, smelled strongly of alcohol. he reported taking homeopathic sleep medication as well as drinking alcohol. in the ED patient is clinically intoxicated, AOX4, without any specific complaints. Review of Systems Unable to obtain: Intoxicated PD PAST MEDICAL HISTORY - Past Medical History Past Medical History: Yes Cardiovascular: Hypertension, High cholesterol Respiratory: Sleep apnea, CPAP use Neuro: Headaches, Other Endocrine/Autoimmune: None, Other GI: GERD, Pancreatitis, Cirrhosis : Incontinence HEENT: None Psych: Depression, Anxiety, Panic attacks, Claustrophobia Musculoskeletal: Osteoarthritis Derm: None - Past Surgical History Past Surgical History: Yes Ortho: Hip replacement, Arthroscopic surgery HEENT: Tracheostomy - Present Medications Home Medications: Ambulatory Orders Medication Instructions Recorded Confirmed Furosemide [Lasix] 40 mg PO DAILY 08/19/19 03/31/21 Cholecalciferol [Vitamin D3] 1,000 units PO DAILY 01/17/20 03/31/21 Multivitamin W/Minerals [Theragran 1 each PO DAILY 01/17/20 03/31/21 M] Propranolol [Inderal] 30 mg PO BID 01/17/20 03/31/21 Pantoprazole Sodium 40 mg PO DAILY 06/14/20 03/31/21 Doxepin [SINEquan] 50 mg PO QPM 11/23/20 03/31/21 Gabapentin [Neurontin] 300 mg PO TID 11/23/20 03/31/21 Folic Acid/Vit B Complex and C 1 tab PO DAILY 11/24/20 03/31/21 [B-Complex with Vit C Tablet] LORazepam [Ativan] 1 mg PO BID #0 11/27/20 03/31/21 Ondansetron Odt [Zofran Odt] 4 mg TL Q6H PRN #20 tablet 12/09/20 03/31/21 Spironolactone [Aldactone] 100 mg PO DAILY 12/13/20 03/31/21 Thiamine [Vitamin B-1] 100 mg PO DAILY #30 tablet 12/15/20 03/31/21 hydrOXYzine pamoate [Vistaril] 50 mg Q6HR PRN 02/21/21 03/31/21 methocarbamoL [Methocarbamol] 2 tab Q6HR PRN 02/21/21 03/31/21 - Allergies Allergies/Adverse Reactions: Allergies Allergy/AdvReac Type Severity Reaction Status Date / Time lisinopril Allergy Mild Anaphylaxis Verified 05/30/21 22:08 - Social History Does the pt smoke?: No Smoking Status: Never smoker Does the pt drink ETOH?: Yes ETOH Use: Wine, Liquor Does the pt have substance abuse?: No - Immunizations Immunizations are current?: Yes Immunizations: Other immun not current - POLST Patient has POLST: No POLST Status: Full Code (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, 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.) PD ED PE NORMAL - Vitals Vital signs reviewed: Yes - General General: 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, No acute distress, Well developed/nourished, Other (clinically intoxicated) - HEENT HEENT: Atraumatic, PERRL, EOMI - Neck Neck: Supple, no meningeal sign, No bony TTP - Cardiac Cardiac: RRR - Respiratory Respiratory: No respiratory distress, Clear bilaterally - Abdomen Abdomen: Non tender, Non distended - Derm Derm: Normal color, Warm and dry - Neuro Neuro: 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, No motor deficit, No sensory deficit - Psych Psych: Normal mood, Normal affect, Other (clinically intoxicated with alcohol) Results - Vitals Vitals: Vital Signs - 24 hr 05/30/21 05/31/21 05/31/21 22:00 00:36 01:22 Temperature 36.1 C L Heart Rate 85 74 81 Respiratory 12 14 17 Rate Blood Pressure 123/102 H 91/70 84/64 L O2 Saturation 95 91 L 89 L 05/31/21 05/31/21 05/31/21 01:42 03:00 03:32 Temperature Heart Rate 80 87 82 Respiratory 18 22 19 Rate Blood Pressure 103/84 H 82/62 L 97/68 O2 Saturation 97 94 05/31/21 05/31/21 04:03 05:44 Temperature Heart Rate 86 87 Respiratory 19 Rate Blood Pressure 110/85 H 98/77 O2 Saturation 93 Oxygen O2 Source Room air - Labs Labs: Laboratory Tests 05/30/21 05/30/21 22:26 22:26 WBC 5.4 RBC 4.14 L Hgb 14.1 Hct 40.5 L MCV 97.8 H MCH 34.1 H MCHC 34.8 RDW 12.8 Plt Count 201 MPV 9.1 Neut # (Auto) 2.8 Lymph # (Auto) 1.9 [place] # (Auto) 0.6 Eos # (Auto) 0.1 Baso # (Auto) 0.0 Absolute Nucleated RBC 0.00 Nucleated RBC % 0.0 Sodium 135 Potassium 3.2 L Chloride 97 L Carbon Dioxide 23 Anion Gap 15.0 H BUN 8 Creatinine 0.6 Estimated GFR (MDRD) 139 Glucose 97 Calcium 8.5 Total Bilirubin 0.6 AST 40 ALT 24 Alkaline Phosphatase 102 Total Protein 7.1 Albumin 3.7 Globulin 3.4 Albumin/Globulin Ratio 1.1 Lipase 21 L Ethyl Alcohol 424.9 PD MEDICAL DECISION MAKING - ED course ED course: 56yM p/w acute alcohol intoxication. patient AOX4 on my assessment. alcohol level markedly elevated. will continue to monitor for sobriety. Patient ambulatory to bathroom without difficulty. reassessed and clinically sober at this time. education given about addiction treatment. return precautions given. Departure - Departure Disposition: 01 Home, Self Care Clinical Impression: Alcohol abuse Condition: Stable Instructions: ED Alcohol Abuse Comments: You were seen in the emergency department for alcohol abuse. Please follow up with your [facility] appointment Jun 11 and with additional addiction counseling resources. Return to the ED if you have other concerns or need help seeking addiction treatment. AA Alcoholics Anonymous. [address] [place] [address], [place], [id number] | Directions. "
[2021-05-31 08:28] VITALS: BP 113/80
== END 2021-05-31 09:11 | disposition home or self-care (01) ==
LOC: EDUNIT# → ED 21:55
DX: F10.129 Alcohol abuse with intoxication, unspecified (principal); Y90.8 Blood alcohol level of 240 mg/100 ml or more; I10 Essential (primary) hypertension
CPT/HCPCS: 36415; 80053; 83690; 85025; 99281; 99284; A9270; G0480; 80320

== ENCOUNTER 2021-08-02 11:56 | Outpatient (CLI) | payer MEDICARE, MEDICAID | END 2021-08-02 11:57 | disposition home or self-care (01) | LOC: LAB.N 11:56 | PROVIDERS: ATTEND Family Medicine | DX: Z53.9 Procedure and treatment not carried out, unspecified reason (principal) ==

== ENCOUNTER 2021-08-03 11:15 | Outpatient (CLI) | payer MEDICARE, MEDICAID ==
[2021-08-03 14:07] LABS: BASOPHILS % (AUTO) 1.3 %; EOSINOPHILS # (AUTO) 0.4 10^3/uL (0.0-0.7); EOSINOPHILS % (AUTO) 13.1 %; HCT - HEMATOCRIT 41.3 % (42.0-52.0); HGB - HEMOGLOBIN 14.3 g/dL (14.0-18.0); LYMPHOCYTES % (AUTO) 32.4 %; MEAN CORPUSCULAR HGB CONC 34.6 g/dL (32.0-36.0); MONOCYTES # (AUTO) 0.5 10^3/uL (0.0-1.0); MONOCYTES % (AUTO) 15.4 %; NEUTROPHILS # (AUTO) 1.1 10^3/uL (1.5-6.6); NEUTROPHILS % (AUTO) 37.1 %; PLT - PLATELET COUNT 265 10^3/uL (130-450); RED BLOOD COUNT 4.09 10^6/uL (4.70-6.10); RED CELL DISTRIBUTION WIDTH 14.6 % (12.0-15.0); WHITE BLOOD COUNT 3.1 x10^3/uL (4.8-10.8)
[2021-08-03 14:41] LABS: PT - PROTHROMBIN TIME 10.9 secs (9.9-12.6)
[2021-08-03 14:42] LABS: THYROID STIMULATING HORMONE 1.55 uIU/mL (0.34-5.60)
[2021-08-03 15:11] LABS: ALBUMIN 4.7 g/dL (3.2-5.5); ALBUMIN/GLOBULIN RATIO 1.3 (1.0-2.2); ALKALINE PHOSPHATASE 109 IU/L (42-121); ALT ALANINE AMINOTRANSFERASE 23 IU/L (10-60); AST ASPARTATE AMINOTRANSFERASE 42 IU/L (10-42); BILIRUBIN,TOTAL 0.6 mg/dL (0.2-1.0); BUN - BLOOD UREA NITROGEN 13 mg/dL (6-20); CALCIUM 9.9 mg/dL (8.5-10.3); CARBON DIOXIDE - CO2 28 mmol/L (21-32); CHLORIDE 100 mmol/L (101-111); CHOL/HDL RATIO 1.7 (<5.0); CHOLESTEROL 232 mg/dL; CREATININE 0.9 mg/dL (0.6-1.2); GFR - MDRD 87 (>89); GLUCOSE 121 mg/dL (70-100); HDL CHOLESTEROL 134 mg/dL; POTASSIUM 4.6 mmol/L (3.5-5.0); SODIUM 139 mmol/L (135-145); TOTAL PROTEIN 8.3 g/dL (6.7-8.2); TRIGLYCERIDES 34 mg/dL
[2021-08-03 15:30] LABS: GAMMA GLUTAMYL TRANSPEPTIDASE 134 IU/L (8-55)
== END 2021-08-03 11:16 | disposition home or self-care (01) ==
LOC: LAB.N 11:15
PROVIDERS: ATTEND Family Medicine
DX: K74.60 Unspecified cirrhosis of liver (principal); I10 Essential (primary) hypertension; E03.9 Hypothyroidism, unspecified
CPT/HCPCS: 36415; 80053; 80061; 82977; 83721; 83735; 84443; 85025; 85610

== ENCOUNTER 2021-10-02 11:46 | Outpatient (CLI) | payer MEDICARE, OTHER, MEDICAID ==
[2021-10-02 12:04] LABS: BASOPHILS % (AUTO) 0.8 %; EOSINOPHILS # (AUTO) 0.4 10^3/uL (0.0-0.7); HCT - HEMATOCRIT 39.8 % (42.0-52.0); LYMPHOCYTES # (AUTO) 1.5 10^3/uL (1.5-3.5); LYMPHOCYTES % (AUTO) 29.5 %; MEAN CORPUSCULAR HGB CONC 35.2 g/dL (32.0-36.0); MEAN CORPUSCULAR VOLUME 102.3 fL (80.0-94.0); MEAN PLATELET VOLUME 8.8 fL (7.4-11.4); MONOCYTES # (AUTO) 0.7 10^3/uL (0.0-1.0); MONOCYTES % (AUTO) 13.4 %; NEUTROPHILS # (AUTO) 2.5 10^3/uL (1.5-6.6); NEUTROPHILS % (AUTO) 49.1 %; PLT - PLATELET COUNT 332 10^3/uL (130-450); RED BLOOD COUNT 3.89 10^6/uL (4.70-6.10); RED CELL DISTRIBUTION WIDTH 11.8 % (12.0-15.0)
[2021-10-02 12:20] LABS: ALBUMIN 4.6 g/dL (3.2-5.5); ALBUMIN/GLOBULIN RATIO 1.4 (1.0-2.2); BILIRUBIN,TOTAL 0.7 mg/dL (0.2-1.0); CALCIUM 10.1 mg/dL (8.5-10.3); CREATININE 0.8 mg/dL (0.6-1.2); POTASSIUM 4.2 mmol/L (3.5-5.0); TOTAL PROTEIN 7.9 g/dL (6.7-8.2)
== END 2021-10-02 11:47 | disposition home or self-care (01) ==
LOC: LAB 11:46
PROVIDERS: ATTEND Physician Assistant
DX: F10.20 Alcohol dependence, uncomplicated (principal)
CPT/HCPCS: 36415; 80053; 85025

== ENCOUNTER 2021-10-03 09:42 | Outpatient (CLI) | payer MEDICARE, MEDICAID, OTHER | END 2021-10-03 09:43 | disposition home or self-care (01) | LOC: LAB.N 09:42 | PROVIDERS: ATTEND Physician Assistant | DX: Z53.9 Procedure and treatment not carried out, unspecified reason (principal) ==

== ENCOUNTER 2021-10-28 11:10 | Outpatient (CLI) | payer MEDICARE, MEDICAID | END 2021-10-28 11:11 | disposition critical access hospital (66) | LOC: EMS 11:10 | DX: R40.20 Unspecified coma (principal) | CPT/HCPCS: A0425; A0427 ==

== ENCOUNTER 2021-10-28 11:28 | Emergency (ER) | payer MEDICARE, MEDICAID ==
[2021-10-28 11:59] LABS: BASOPHILS % (AUTO) 0.2 %; EOSINOPHILS # (AUTO) 0.4 10^3/uL (0.0-0.7); EOSINOPHILS % (AUTO) 8.1 %; HGB - HEMOGLOBIN 11.1 g/dL (14.0-18.0); LYMPHOCYTES # (AUTO) 0.8 10^3/uL (1.5-3.5); MEAN CORPUSCULAR HEMOGLOBIN 35.4 pg (27.0-31.0); MEAN CORPUSCULAR HGB CONC 34.7 g/dL (32.0-36.0); MEAN CORPUSCULAR VOLUME 101.9 fL (80.0-94.0); MEAN PLATELET VOLUME 8.9 fL (7.4-11.4); MONOCYTES # (AUTO) 0.6 10^3/uL (0.0-1.0); MONOCYTES % (AUTO) 11.4 %; NEUTROPHILS # (AUTO) 3.1 10^3/uL (1.5-6.6); NEUTROPHILS % (AUTO) 63.3 %; PLT - PLATELET COUNT 233 10^3/uL (130-450); RED BLOOD COUNT 3.14 10^6/uL (4.70-6.10); RED CELL DISTRIBUTION WIDTH 11.9 % (12.0-15.0); WHITE BLOOD COUNT 4.9 x10^3/uL (4.8-10.8)
[2021-10-28 12:12] LABS: ALBUMIN 3.2 g/dL (3.2-5.5); ALBUMIN/GLOBULIN RATIO 1.2 (1.0-2.2); ALKALINE PHOSPHATASE 59 IU/L (42-121); ALT ALANINE AMINOTRANSFERASE 21 IU/L (10-60); AST ASPARTATE AMINOTRANSFERASE 62 IU/L (10-42); BILIRUBIN,TOTAL 0.6 mg/dL (0.2-1.0); BUN - BLOOD UREA NITROGEN 12 mg/dL (6-20); CARBON DIOXIDE - CO2 28 mmol/L (21-32); CHLORIDE 101 mmol/L (101-111); CREATININE 1.3 mg/dL (0.6-1.2); ETOH - ETHANOL < 5.0 mg/dL; GFR - MDRD 57 (>89); GLUCOSE 120 mg/dL (70-100); LIPASE 20 U/L (22-51); POTASSIUM 4.5 mmol/L (3.5-5.0); SODIUM 139 mmol/L (135-145); TOTAL PROTEIN 5.8 g/dL (6.7-8.2)
--- NOTE | 2021-10-28 12:14 | XRAY Report ---
PROCEDURE: Chest 1 View X-Ray INDICATIONS: chest pain TECHNIQUE: One view of the chest was acquired. COMPARISON: Chest x-ray, one view, 12/22/2020 FINDINGS: Surgical changes and devices: None. Lungs and pleura: No pleural effusions or pneumothorax. Lungs are clear. Mediastinum: Mediastinal contours appear normal. Heart size is normal. Bones and chest wall: No suspicious bony lesions. Overlying soft tissues appear unremarkable. IMPRESSION: No acute cardiopulmonary disease. Reviewed by: Yesi Saenz MD on 10/28/2021 12:13 PM PDT Approved by: Yesi Saenz MD on 10/28/2021 12:13 PM PDT Station ID: [id number]
[2021-10-28] MEDS ORDERED: NALOXONE 0.4 MG/ML VIAL IVP STA (13:09)
[2021-10-28] MEDS ORDERED: SODIUM CHLORIDE 0.9% 1,000 ML IV STA (13:09)
--- NOTE | 2021-10-28 13:28 | ED Physician Documentation ---
PD HPI ALTERED MENTAL STATUS - Stated complaint Stated Complaint: FOUND DOWN - Chief complaint Chief Complaint: Neuro - History obtained from History obtained from: Patient, Family, EMS - History of Present Illness Timing - duration: Hours Timing - details: Gradual onset, Still present Quality / character: Less responsive, Unresponsive Associated symptoms: Other Contributing factors: Other (recent surgery to the left wrist with narcotic perscription) Basline status: 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, Ambulatory, Independent Similar symptoms before: Diagnosis (narcotic overdose) Recently seen: Surgery - Additional information Additional information: 56-year-old alcoholic male with history of hypertension and depression and a remote history of Guillain-Atwood comes into the emergency department today after being found unconscious by his mother. The patient has had recent surgery to his left wrist and he does not recall exactly what happened today but he thought that he was taking 5 nausea pills and he has narcotic pain reliever at home. The patient was unconscious and unable to contribute to the history at all and in route to the hospital advice was given to give him Narcan which resulted in a change in his Wilian Coma Scale from 7 to 14. Review of Systems Constitutional: denies: Fever Ears: denies: Ear pain Nose: denies: Congestion Respiratory: denies: Cough GI: denies: Vomiting Skin: denies: Rash PD PAST MEDICAL HISTORY - Past Medical History Cardiovascular: Hypertension, High cholesterol Respiratory: Sleep apnea, CPAP use Neuro: Headaches, Other Endocrine/Autoimmune: None, Other GI: GERD, Pancreatitis, Cirrhosis : Incontinence HEENT: None Psych: Depression, Anxiety, Panic attacks, Claustrophobia Musculoskeletal: Osteoarthritis Derm: None - Past Surgical History Past Surgical History: Yes Ortho: Hip replacement, Arthroscopic surgery HEENT: Tracheostomy - Present Medications Home Medications: Ambulatory Orders Medication Instructions Recorded Confirmed Furosemide [Lasix] 40 mg PO DAILY 08/19/19 03/31/21 Cholecalciferol [Vitamin D3] 1,000 units PO DAILY 01/17/20 03/31/21 Multivitamin W/Minerals [Theragran 1 each PO DAILY 01/17/20 03/31/21 M] Propranolol [Inderal] 30 mg PO BID 01/17/20 03/31/21 Pantoprazole Sodium 40 mg PO DAILY 06/14/20 03/31/21 Doxepin [SINEquan] 50 mg PO QPM 11/23/20 03/31/21 Gabapentin [Neurontin] 300 mg PO TID 11/23/20 03/31/21 Folic Acid/Vit B Complex and C 1 tab PO DAILY 11/24/20 03/31/21 [B-Complex with Vit C Tablet] LORazepam [Ativan] 1 mg PO BID #0 11/27/20 03/31/21 Ondansetron Odt [Zofran Odt] 4 mg TL Q6H PRN #20 tablet 12/09/20 03/31/21 Spironolactone [Aldactone] 100 mg PO DAILY 12/13/20 03/31/21 Thiamine [Vitamin B-1] 100 mg PO DAILY #30 tablet 12/15/20 03/31/21 hydrOXYzine pamoate [Vistaril] 50 mg Q6HR PRN 02/21/21 03/31/21 methocarbamoL [Methocarbamol] 2 tab Q6HR PRN 02/21/21 03/31/21 - Allergies Allergies/Adverse Reactions: Allergies Allergy/AdvReac Type Severity Reaction Status Date / Time lisinopril Allergy Mild Anaphylaxis Verified 10/28/21 11:43 - Social History Does the pt smoke?: No Smoking Status: Never smoker Does the pt drink ETOH?: Yes Does the pt have substance abuse?: No - Immunizations Immunizations are current?: Yes Immunizations: Other immun not current - POLST Patient has POLST: No POLST Status: Full Code (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, 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.) PD ED PE NORMAL - Vitals Vital signs reviewed: Yes (Tachypneic and hypertensive mild) - General General: 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, No acute distress, Well developed/nourished - HEENT HEENT: Atraumatic, PERRL, EOMI - Neck Neck: Supple, no meningeal sign, No bony TTP - Cardiac Cardiac: RRR, No murmur - Respiratory Respiratory: No respiratory distress, Clear bilaterally - Abdomen Abdomen: Normal bowel sounds, Soft, Non tender, Non distended, No organomegaly - Back Back: No CVA TTP, No spinal TTP - Derm Derm: Normal color, Warm and dry, No rash - Extremities Extremities: No deformity, No edema - Neuro Neuro: 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, professor of 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, No motor deficit, No sensory deficit, Normal speech Eye Opening: Spontaneous Motor: Obeys Commands Verbal: Confused GCS Score: 14 - Psych Psych: Normal mood, Normal affect Results - Vitals Vitals: Vital Signs - 24 hr 10/28/21 10/28/21 10/28/21 11:36 13:19 14:06 Temperature 37.3 C Heart Rate 79 72 72 Respiratory 27 H 15 17 Rate Blood Pressure 106/83 H 87/68 L 109/78 O2 Saturation 100 100 100 10/28/21 15:07 Temperature 36.5 C Heart Rate 71 Respiratory 16 Rate Blood Pressure 93/72 O2 Saturation 100 Oxygen O2 Source Room air - Labs Labs: Laboratory Tests 10/28/21 10/28/21 11:54 11:54 WBC 4.9 RBC 3.14 L Hgb 11.1 L Hct 32.0 L MCV 101.9 H MCH 35.4 H MCHC 34.7 RDW 11.9 L Plt Count 233 MPV 8.9 Neut # (Auto) 3.1 Lymph # (Auto) 0.8 L [place] # (Auto) 0.6 Eos # (Auto) 0.4 Baso # (Auto) 0.0 Absolute Nucleated RBC 0.00 Nucleated RBC % 0.0 Sodium 139 Potassium 4.5 Chloride 101 Carbon Dioxide 28 Anion Gap 10.0 BUN 12 Creatinine 1.3 H Estimated GFR (MDRD) 57 L Glucose 120 H Calcium 9.0 Total Bilirubin 0.6 AST 62 H ALT 21 Alkaline Phosphatase 59 Total Protein 5.8 L Albumin 3.2 Globulin 2.6 Albumin/Globulin Ratio 1.2 Lipase 20 L Ethyl Alcohol < 5.0 - Rads (name of study) chest Radiology: Prelim report reviewed (Impression: No acute cardiopulmonary disease.), EMP read indepedently, See rad report PD MEDICAL DECISION MAKING - ED course Complexity details: reviewed old records, reviewed results, re-evaluated patient, considered differential, d/w patient ED course: 56-year-old alcoholic male with a history of polysubstance abuse has had a fracture of his arm and has had recent repair of this and he has had a supply of some narcotic. Today he took too much. In route to the hospital he had near complete recovery with the dose of Narcan. He was observed here in the emergency department and he again became apneic with a respiratory rate of 7 or 8 and he was administered another dose of Narcan. 2 hours later he was well and discharged home. Departure - Departure Disposition: 01 Home, Self Care Clinical Impression: Narcotic overdose Qualifiers: Encounter type: initial encounter Injury intent: accidental or unintentional Qualified Code(s): T40.601A - Poisoning by unspecified narcotics, accidental (unintentional), initial encounter Condition: Stable Instructions: ED Overdose Accidental Follow-Up: Kim Dutton DO [Provider Admit Priv/Credential] - Comments: Stew today it looks like you have again taken too many pain pills. The recommendation is to discontinue the use of the narcotic entirely. Use the other medications as indicated for pain control. Discharge Date/Time: 10/28/21 15:36
[2021-10-28 15:09] VITALS: BP 93/72
== END 2021-10-28 15:36 | disposition home or self-care (01) ==
LOC: EDUNIT# → EDBD → ED 11:28
DX: T40.601A Poisoning by unspecified narcotics, accidental (unintentional), initial encounter (principal); I10 Essential (primary) hypertension
CPT/HCPCS: 36415; 71045; 80053; 83690; 85025; 93005; 96374; 99284; G0480; 80320

== ENCOUNTER 2021-11-02 18:17 | Outpatient (CLI) | payer MEDICARE, MEDICAID | END 2021-11-02 18:18 | disposition critical access hospital (66) | LOC: EMS 18:17 | DX: R55 Syncope and collapse (principal); R53.1 Weakness | CPT/HCPCS: A0425; A0429 ==

== ENCOUNTER 2021-11-02 18:37 | Emergency (ER) | payer MEDICARE, MEDICAID ==
[2021-11-02] MEDS ORDERED: SODIUM CHLORIDE 0.9% 1,000 ML IV STA (18:47)
[2021-11-02 18:52] LABS: BASOPHILS % (AUTO) 0.6 %; EOSINOPHILS # (AUTO) 0.8 10^3/uL (0.0-0.7); EOSINOPHILS % (AUTO) 12.8 %; HCT - HEMATOCRIT 36.6 % (42.0-52.0); HGB - HEMOGLOBIN 12.5 g/dL (14.0-18.0); LYMPHOCYTES % (AUTO) 30.2 %; MEAN CORPUSCULAR HEMOGLOBIN 34.3 pg (27.0-31.0); MEAN CORPUSCULAR HGB CONC 34.2 g/dL (32.0-36.0); MEAN CORPUSCULAR VOLUME 100.5 fL (80.0-94.0); MEAN PLATELET VOLUME 9.2 fL (7.4-11.4); MONOCYTES # (AUTO) 0.8 10^3/uL (0.0-1.0); MONOCYTES % (AUTO) 11.6 %; NEUTROPHILS # (AUTO) 2.9 10^3/uL (1.5-6.6); NEUTROPHILS % (AUTO) 44.5 %; PLT - PLATELET COUNT 340 10^3/uL (130-450); RED BLOOD COUNT 3.64 10^6/uL (4.70-6.10); RED CELL DISTRIBUTION WIDTH 11.8 % (12.0-15.0); WHITE BLOOD COUNT 6.5 x10^3/uL (4.8-10.8)
[2021-11-02 19:06] LABS: ALBUMIN 3.7 g/dL (3.2-5.5); ALBUMIN/GLOBULIN RATIO 1.1 (1.0-2.2); ALKALINE PHOSPHATASE 73 IU/L (42-121); ALT ALANINE AMINOTRANSFERASE 18 IU/L (10-60); AST ASPARTATE AMINOTRANSFERASE 25 IU/L (10-42); BILIRUBIN,TOTAL 0.4 mg/dL (0.2-1.0); BUN - BLOOD UREA NITROGEN 14 mg/dL (6-20); CALCIUM 9.4 mg/dL (8.5-10.3); CARBON DIOXIDE - CO2 29 mmol/L (21-32); CHLORIDE 99 mmol/L (101-111); CREATININE 1.2 mg/dL (0.6-1.2); ETOH - ETHANOL < 5.0 mg/dL; GFR - MDRD 62 (>89); GLUCOSE 99 mg/dL (70-100); LIPASE 19 U/L (22-51); POTASSIUM 4.6 mmol/L (3.5-5.0); SODIUM 139 mmol/L (135-145)
--- NOTE | 2021-11-02 19:25 | XRAY Report ---
PROCEDURE: Chest 1 View X-Ray INDICATIONS: Chest Pain TECHNIQUE: One view of the chest was acquired. COMPARISON: 10/28/2021, 12/13/2020, 12/09/2020 FINDINGS: Surgical changes and devices: None. Lungs and pleura: No pleural effusions or pneumothorax. Lungs are clear. Mediastinum: Mediastinal contours appear normal. Heart size is normal. Bones and chest wall: No suspicious bony lesions. Overlying soft tissues appear unremarkable. IMPRESSION: Unremarkable portable chest, stable from prior. Reviewed by: Billy Antunez MD on 11/02/2021 6:24 PM RACHID Approved by: Billy Antunez MD on 11/02/2021 6:24 PM ARKATY Station ID: [id number]
--- NOTE | 2021-11-02 20:02 | ED Physician Documentation ---
PD HPI SYNCOPE - Stated complaint Stated Complaint: SYNCOPE - Chief complaint Chief Complaint: Neuro - History obtained from History obtained from: Patient, EMS - History of Present Illness Witnessed: Witnessed Timing - onset: Today Duration: Seconds Preceding symptoms: Light headed. No: Headache, Vision changes, Chest pain, P alpitations, Diaphoresis, Dyspnea, Abdominal pain, Nausea / vomiting, Generalized weakness Associated symptoms: No: Incontinant of urine, Incontinant of stool, Headache, Vision changes, Chest pain, Palpitations, Diaphoresis, Dyspnea, Nausea / vomiting, Abdominal pain Injury occurred: None. No: Fell, Head injury, Neck injury, Bit tongue Pain level max: 0 Pain level now: 0 Recently seen: Not recently seen - Additional information Additional information: Patient is a 56-year-old male, history of alcoholism but states has been sober for few weeks now. He states that his blood pressure has been low intermittently. Not drinking much water lately. He did take oxycodone today as he had a recent wrist surgery. He was at [employer] when he felt lightheaded, dizzy and thinks that he may have passed out. Did not fall or injure himself. No chest pain. No shortness of breath. No palpitations. Nothing makes it better or worse. Review of Systems Ten Systems: 10 systems reviewed and negative Constitutional: denies: Fever, Chills Respiratory: denies: Cough GI: denies: Nausea, Vomiting, Diarrhea Skin: denies: Rash Musculoskeletal: denies: Neck pain, Back pain Neurologic: denies: Headache PD PAST MEDICAL HISTORY - Past Medical History Past Medical History: Yes Cardiovascular: Hypertension, High cholesterol Respiratory: Sleep apnea, CPAP use Neuro: Headaches, Other Endocrine/Autoimmune: None, Other GI: GERD, Pancreatitis, Cirrhosis : Incontinence HEENT: None Psych: Depression, Anxiety, Panic attacks, Claustrophobia Musculoskeletal: Osteoarthritis Derm: None - Past Surgical History Past Surgical History: Yes Ortho: Hip replacement, Arthroscopic surgery HEENT: Tracheostomy - Present Medications Home Medications: Ambulatory Orders Medication Instructions Recorded Confirmed Furosemide [Lasix] 40 mg PO DAILY 08/19/19 03/31/21 Cholecalciferol [Vitamin D3] 1,000 units PO DAILY 01/17/20 03/31/21 Multivitamin W/Minerals [Theragran 1 each PO DAILY 01/17/20 03/31/21 M] Propranolol [Inderal] 30 mg PO BID 01/17/20 03/31/21 Pantoprazole Sodium 40 mg PO DAILY 06/14/20 03/31/21 Doxepin [SINEquan] 50 mg PO QPM 11/23/20 03/31/21 Gabapentin [Neurontin] 300 mg PO TID 11/23/20 03/31/21 Folic Acid/Vit B Complex and C 1 tab PO DAILY 11/24/20 03/31/21 [B-Complex with Vit C Tablet] LORazepam [Ativan] 1 mg PO BID #0 11/27/20 03/31/21 Ondansetron Odt [Zofran Odt] 4 mg TL Q6H PRN #20 tablet 12/09/20 03/31/21 Spironolactone [Aldactone] 100 mg PO DAILY 12/13/20 03/31/21 Thiamine [Vitamin B-1] 100 mg PO DAILY #30 tablet 12/15/20 03/31/21 hydrOXYzine pamoate [Vistaril] 50 mg Q6HR PRN 02/21/21 03/31/21 methocarbamoL [Methocarbamol] 2 tab Q6HR PRN 02/21/21 03/31/21 - Allergies Allergies/Adverse Reactions: Allergies Allergy/AdvReac Type Severity Reaction Status Date / Time lisinopril Allergy Mild Anaphylaxis Verified 10/28/21 11:43 - Social History Does the pt smoke?: No Smoking Status: Never smoker Does the pt drink ETOH?: Yes Does the pt have substance abuse?: No - Immunizations Immunizations are current?: Yes Immunizations: Other immun not current - POLST Patient has POLST: No POLST Status: Full Code (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, 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.) PD ED PE NORMAL - Vitals Vital signs reviewed: Yes - General General: 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, No acute distress, Well developed/nourished - HEENT HEENT: PERRL, Moist mucous membranes - Neck Neck: Supple, no meningeal sign - Cardiac Cardiac: RRR, Strong equal pulses - Respiratory Respiratory: No respiratory distress, Clear bilaterally - Abdomen Abdomen: Soft, Non tender, Non distended - Back Back: No CVA TTP, No spinal TTP - Derm Derm: Warm and dry, No rash - Extremities Extremities: No edema, No calf tenderness / cord - Neuro Neuro: 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, 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, No motor deficit, No sensory deficit, Normal speech Eye Opening: Spontaneous Motor: Obeys Commands Verbal: Oriented GCS Score: 15 - Psych Psych: Normal mood, Normal affect Results - Vitals Vitals: Vital Signs - 24 hr 11/02/21 11/02/21 18:42 20:10 Temperature 36.4 C L 37.0 C Heart Rate 71 86 Respiratory 16 18 Rate Blood Pressure 110/84 H 104/79 O2 Saturation 99 99 Oxygen O2 Source Room air - EKG (time done) 1901 Rate: Rate (enter#) (61) Rhythm: NSR [place]: Normal Intervals: Normal [place] QRS: Normal Ischemia: Normal ST segments - Labs Labs: Laboratory Tests 11/02/21 11/02/21 11/02/21 18:40 18:40 18:40 WBC 6.5 RBC 3.64 L Hgb 12.5 L Hct 36.6 L MCV 100.5 H MCH 34.3 H MCHC 34.2 RDW 11.8 L Plt Count 340 MPV 9.2 Neut # (Auto) 2.9 Lymph # (Auto) 2.0 [place] # (Auto) 0.8 Eos # (Auto) 0.8 H Baso # (Auto) 0.0 Absolute Nucleated RBC 0.00 Nucleated RBC % 0.0 Sodium 139 Potassium 4.6 Chloride 99 L Carbon Dioxide 29 Anion Gap 11.0 BUN 14 Creatinine 1.2 Estimated GFR (MDRD) 62 L Glucose 99 Calcium 9.4 Total Bilirubin 0.4 AST 25 ALT 18 Alkaline Phosphatase 73 Troponin I High Sens 2.7 Total Protein 7.0 Albumin 3.7 Globulin 3.3 Albumin/Globulin Ratio 1.1 Lipase 19 L Ethyl Alcohol < 5.0 - Rads (name of study) cxr Radiology: Final report received, EMP read contemporaneously, See rad report PD MEDICAL DECISION MAKING - ED course Complexity details: reviewed results, re-evaluated patient, considered differential (No ST elevation MD, no aortic dissection, no PE, no tension pneumothorax, no aortic aneurysm), d/w patient ED course: 56-year-old male presents to the emergency department with likely vasovagal syncope today. He feels much better after IV fluids. Blood pressure improved. Ambulating without difficulty. No evidence of arrhythmia. No chest pain. No significant lab abnormalities. No significant EKG abnormalities. Patient counseled regarding signs and symptoms for which I believe and urgent re- evaluation would be necessary. Patient with good understanding of and agreement to plan and is comfortable going home at this time This document was made in part using voice recognition software. While efforts are made to proofread this document, sound alike and grammatical errors may occur. Departure - Departure Disposition: 01 Home, Self Care Clinical Impression: Vasovagal syncope, Dehydration Condition: Good Instructions: ED Syncope Vasovagal Follow-Up: Nancie Gloria PA-C [Primary Care Provider] - Within 1 week Comments: Make sure you are drinking plenty of water at home. Return if you worsen. Follow-up with your doctor for further care. Discharge Date/Time: 11/02/21 20:20
[2021-11-02 20:18] VITALS: BP 104/79
== END 2021-11-02 20:20 | disposition home or self-care (01) ==
LOC: EDUNIT# → ED 18:37
DX: R55 Syncope and collapse (principal); E86.0 Dehydration
CPT/HCPCS: 36415; 71045; 80053; 83690; 84484; 85025; 93005; 96360; 99283; 99284; G0480; 80320

== ENCOUNTER 2021-11-05 22:08 | Outpatient (CLI) | payer MEDICARE, MEDICAID | END 2021-11-05 22:09 | disposition critical access hospital (66) | LOC: EMS 22:08 | DX: R40.4 Transient alteration of awareness (principal) | CPT/HCPCS: A0425; A0429 ==

== ENCOUNTER 2021-11-05 22:24 | Emergency (ER) | payer MEDICARE, MEDICAID ==
[2021-11-05] MEDS ORDERED: NALOXONE 0.4 MG/ML VIAL IVP STA (22:43)
--- NOTE | 2021-11-05 22:53 | ED Physician Documentation ---
History of Present Illness - Stated complaint Stated Complaint: ETOH - Chief complaint Chief Complaint: General - History obtained from History obtained from: EMS - Additonal information Additional information: Patient is a 56-year-old male presenting for evaluation of altered mental status. Patient lives at home with his mother and she Found him altered. Police and EMS were called. Blood sugar was checked and within normal limits. No medications otherwise given. EMS did note pint of alcohol near the patient. He does have a history of alcohol abuse. He was recently seen in the emergency department with Unintentional narcotic overdose. Patient is able to state his name but otherwise not able to give any meaningful history therefore presenting history is limited.No reports of trauma. Review of Systems Unable to obtain: AMS PD PAST MEDICAL HISTORY - Past Medical History Cardiovascular: Hypertension, High cholesterol Respiratory: Sleep apnea, CPAP use Neuro: Headaches, Other Endocrine/Autoimmune: None, Other GI: GERD, Pancreatitis, Cirrhosis : Incontinence HEENT: None Psych: Depression, Anxiety, Panic attacks, Claustrophobia Musculoskeletal: Osteoarthritis Derm: None - Past Surgical History Past Surgical History: Yes Ortho: Hip replacement, Arthroscopic surgery HEENT: Tracheostomy - Present Medications Home Medications: Ambulatory Orders Medication Instructions Recorded Confirmed Furosemide [Lasix] 40 mg PO DAILY 08/19/19 03/31/21 Cholecalciferol [Vitamin D3] 1,000 units PO DAILY 01/17/20 03/31/21 Multivitamin W/Minerals [Theragran 1 each PO DAILY 01/17/20 03/31/21 M] Propranolol [Inderal] 30 mg PO BID 01/17/20 03/31/21 Pantoprazole Sodium 40 mg PO DAILY 06/14/20 03/31/21 Doxepin [SINEquan] 50 mg PO QPM 11/23/20 03/31/21 Gabapentin [Neurontin] 300 mg PO TID 11/23/20 03/31/21 Folic Acid/Vit B Complex and C 1 tab PO DAILY 11/24/20 03/31/21 [B-Complex with Vit C Tablet] LORazepam [Ativan] 1 mg PO BID #0 11/27/20 03/31/21 Ondansetron Odt [Zofran Odt] 4 mg TL Q6H PRN #20 tablet 12/09/20 03/31/21 Spironolactone [Aldactone] 100 mg PO DAILY 12/13/20 03/31/21 Thiamine [Vitamin B-1] 100 mg PO DAILY #30 tablet 12/15/20 03/31/21 hydrOXYzine pamoate [Vistaril] 50 mg Q6HR PRN 02/21/21 03/31/21 methocarbamoL [Methocarbamol] 2 tab Q6HR PRN 02/21/21 03/31/21 - Allergies Allergies/Adverse Reactions: Allergies Allergy/AdvReac Type Severity Reaction Status Date / Time lisinopril Allergy Mild Anaphylaxis Verified 11/05/21 22:31 - Social History Does the pt smoke?: No Smoking Status: Never smoker Does the pt drink ETOH?: Yes Does the pt have substance abuse?: No - Immunizations Immunizations are current?: Yes Immunizations: Other immun not current - POLST Patient has POLST: No POLST Status: Full Code (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 No: No edema - Neuro Neuro: No motor deficit (Moves all extremities), Normal speech (Slurred). No: 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 Results - Vitals Vitals: Vital Signs - 24 hr 11/05/21 11/05/21 11/05/21 22:31 22:34 23:30 Temperature 36.5 C 36.5 C Heart Rate 88 88 90 Respiratory 14 14 19 Rate Blood Pressure 101/73 101/73 100/72 O2 Saturation 94 94 95 11/06/21 11/06/21 11/06/21 01:25 03:56 05:04 Temperature 36.1 C L Heart Rate 81 77 78 Respiratory 14 15 14 Rate Blood Pressure 96/74 99/80 O2 Saturation 99 96 98 11/06/21 11/06/21 06:32 08:00 Temperature Heart Rate 79 74 Respiratory 15 18 Rate Blood Pressure 88/62 L 102/76 O2 Saturation 97 97 Oxygen O2 Source Room air - EKG (time done) 2302 Rate: Rate (enter#) (81) Rhythm: NSR [place]: Normal Intervals: Other (QTC 484) Ischemia: No: ST elevation c/w ischemia - Labs Labs: Laboratory Tests 11/05/21 11/05/21 23:05 23:43 WBC 6.0 RBC 3.61 L Hgb 12.4 L Hct 35.2 L MCV 97.5 H MCH 34.3 H MCHC 35.2 RDW 11.9 L Plt Count 372 MPV 8.7 Neut # (Auto) 2.8 Lymph # (Auto) 2.2 [place] # (Auto) 0.5 Eos # (Auto) 0.4 Baso # (Auto) 0.0 Absolute Nucleated RBC 0.00 Nucleated RBC % 0.0 Sodium 138 Potassium 4.1 Chloride 100 L Carbon Dioxide 24 Anion Gap 14.0 H BUN 11 Creatinine 0.8 Estimated GFR (MDRD) 100 Glucose 100 Calcium 9.0 Total Bilirubin 0.2 AST 24 ALT 15 Alkaline Phosphatase 78 Total Protein 7.1 Albumin 3.7 Globulin 3.4 Albumin/Globulin Ratio 1.1 Lipase 22 Ethyl Alcohol 391.9 PD MEDICAL DECISION MAKING - ED course Complexity details: re-evaluated patient ED course: 314 - CT brain without acute findings, only significant abnormality is elevated alcohol level. Patient no response to Narcan. Patient is slightly more easy to awake and was able to urinate into a urinal but still is clinically very intoxicated. We will continue to monitor. Pt with AMS. CT head negative. Labs significant for ETOH which is consistent with concerns from EMS. Pt allowed to sleep overnight in ED and monitored. Clinically sober by AM - clear speech, ambulating independently, no further complaints, appropriate for discharge. Departure - Departure Disposition: 01 Home, Self Care Clinical Impression: Alcohol intoxication Qualifiers: Complication of substance-induced condition: uncomplicated Qualified Code(s): F10.920 - Alcohol use, unspecified with intoxication, uncomplicated Condition: Stable Instructions: ED Alcohol Intoxication Comments: Stew - You were found to be altered last night by a family member. It appears that this is related to consuming too much alcohol. You are allowed to sober up in the emergency department overnight. You had a head CT which was negative for any injuries. Your labs are otherwise normal. You appear to be clinically sober, able to ambulate on your own and are safe for discharge. Please Consider reducing your alcohol consumption as it can lead to dangerous situations such as you falling or passing out, becoming unresponsive. If you Are interested in alcohol detox, you can call [facility] Discharge Date/Time: 11/06/21 08:21
[2021-11-05 23:28] LABS: ALBUMIN 3.7 g/dL (3.2-5.5); ALBUMIN/GLOBULIN RATIO 1.1 (1.0-2.2); BILIRUBIN,TOTAL 0.2 mg/dL (0.2-1.0); CREATININE 0.8 mg/dL (0.6-1.2); ETOH - ETHANOL 391.9 mg/dL; POTASSIUM 4.1 mmol/L (3.5-5.0); TOTAL PROTEIN 7.1 g/dL (6.7-8.2)
[2021-11-05 23:46] LABS: BASOPHILS % (AUTO) 0.3 %; EOSINOPHILS # (AUTO) 0.4 10^3/uL (0.0-0.7); HCT - HEMATOCRIT 35.2 % (42.0-52.0); HGB - HEMOGLOBIN 12.4 g/dL (14.0-18.0); LYMPHOCYTES # (AUTO) 2.2 10^3/uL (1.5-3.5); LYMPHOCYTES % (AUTO) 36.7 %; MEAN CORPUSCULAR HEMOGLOBIN 34.3 pg (27.0-31.0); MEAN CORPUSCULAR HGB CONC 35.2 g/dL (32.0-36.0); MEAN CORPUSCULAR VOLUME 97.5 fL (80.0-94.0); MEAN PLATELET VOLUME 8.7 fL (7.4-11.4); MONOCYTES # (AUTO) 0.5 10^3/uL (0.0-1.0); MONOCYTES % (AUTO) 8.5 %; NEUTROPHILS # (AUTO) 2.8 10^3/uL (1.5-6.6); PLT - PLATELET COUNT 372 10^3/uL (130-450); RED BLOOD COUNT 3.61 10^6/uL (4.70-6.10); RED CELL DISTRIBUTION WIDTH 11.9 % (12.0-15.0)
--- NOTE | 2021-11-05 23:55 | CT Report ---
PROCEDURE: HEAD WO INDICATIONS: AMS TECHNIQUE: Noncontrast 4.5 mm thick angled axial sections acquired from the foramen magnum to the vertex. For r adiation dose reduction, the following was used: automated exposure control, adjustment of mA and/or kV according to patient size. COMPARISON: 12/13/2020. FINDINGS: Image quality: Excellent. CSF spaces: There is mild cerebral volume loss with prominence of the ventricles and sulci. Basal ci sterns are patent. No extra-axial fluid collections. Brain: No intracranial hemorrhage, mass, or mass effect. Muhammad-white matter interface is preserved. T here are subcortical and periventricular white matter hypodensities consistent with mild chronic smal l vessel ischemic changes. Skull and face: Calvarium and visualized facial bones are intact, without suspicious lesions. Sinuses: Visualized sinuses demonstrate moderate mucosal thickening within the ethmoid sinuses and m ild mucosal thickening within the maxillary and sphenoid sinuses. Mastoid air cells are clear. IMPRESSION: 1. No acute intracranial abnormality. 2. Mild chronic white matter small vessel ischemic changes and cerebral volume loss. Reviewed by: Joselo Mueller MD on 11/05/2021 11:53 PM PDT Approved by: Joselo Mueller MD on 11/05/2021 11:53 PM PDT Station ID: [id number]
[2021-11-06 08:02] VITALS: BP 102/76
== END 2021-11-06 08:21 | disposition home or self-care (01) ==
LOC: EDUNIT# → EDBD → ED 22:24
DX: F10.129 Alcohol abuse with intoxication, unspecified (principal); Y90.8 Blood alcohol level of 240 mg/100 ml or more
CPT/HCPCS: 36415; 70450; 80053; 83690; 85025; 93005; 96374; 99281; 99284; G0480; 80320

== ENCOUNTER 2021-11-13 23:30 | Outpatient (CLI) | payer MEDICARE, MEDICAID | END 2021-11-13 23:31 | disposition critical access hospital (66) | LOC: EMS 23:30 | DX: R06.89 Other abnormalities of breathing (principal); R41.82 Altered mental status, unspecified; R47.81 Slurred speech; Z72.89 Other problems related to lifestyle | CPT/HCPCS: A0425; A0427 ==

== ENCOUNTER 2021-11-21 10:46 | Outpatient (CLI) | payer MEDICARE, MEDICAID | END 2021-11-21 10:47 | disposition home or self-care (01) | LOC: LAB.N 10:46 | PROVIDERS: ATTEND Physician Assistant | DX: Z53.9 Procedure and treatment not carried out, unspecified reason (principal) ==

== ENCOUNTER 2021-11-27 07:18 | Outpatient (CLI) | payer MEDICARE ==
[2021-11-27 11:56] LABS: BASOPHILS % (AUTO) 0.7 %; EOSINOPHILS # (AUTO) 0.7 10^3/uL (0.0-0.7); EOSINOPHILS % (AUTO) 15.9 %; HCT - HEMATOCRIT 36.6 % (42.0-52.0); HGB - HEMOGLOBIN 12.7 g/dL (14.0-18.0); LYMPHOCYTES # (AUTO) 1.9 10^3/uL (1.5-3.5); LYMPHOCYTES % (AUTO) 43.5 %; MEAN CORPUSCULAR HGB CONC 34.7 g/dL (32.0-36.0); MEAN CORPUSCULAR VOLUME 97.9 fL (80.0-94.0); MEAN PLATELET VOLUME 10.1 fL (7.4-11.4); MONOCYTES # (AUTO) 0.4 10^3/uL (0.0-1.0); MONOCYTES % (AUTO) 8.7 %; NEUTROPHILS # (AUTO) 1.4 10^3/uL (1.5-6.6); NEUTROPHILS % (AUTO) 30.7 %; PLT - PLATELET COUNT 195 10^3/uL (130-450); RED BLOOD COUNT 3.74 10^6/uL (4.70-6.10); RED CELL DISTRIBUTION WIDTH 13.6 % (12.0-15.0); WHITE BLOOD COUNT 4.4 x10^3/uL (4.8-10.8)
[2021-11-27 12:38] LABS: ALBUMIN 4.4 g/dL (3.2-5.5); ALBUMIN/GLOBULIN RATIO 1.2 (1.0-2.2); BILIRUBIN,TOTAL 0.6 mg/dL (0.2-1.0); CALCIUM 9.7 mg/dL (8.5-10.3); POTASSIUM 4.2 mmol/L (3.5-5.0); TOTAL PROTEIN 8.1 g/dL (6.7-8.2)
[2021-11-27 12:50] LABS: THYROID STIMULATING HORMONE 1.66 uIU/mL (0.34-5.60)
== END 2021-11-27 07:19 | disposition home or self-care (01) ==
LOC: LAB.N 07:18
PROVIDERS: ATTEND Physician Assistant
DX: I95.9 Hypotension, unspecified (principal); R39.11 Hesitancy of micturition
CPT/HCPCS: 36415; 80053; 82533; 84153; 84443; 85025

== ENCOUNTER 2022-04-15 18:00 | Emergency (ER) | payer MEDICARE, MEDICAID ==
[2022-04-15 18:35] LABS: BASOPHILS % (AUTO) 0.4 %; EOSINOPHILS # (AUTO) 0.5 10^3/uL (0.0-0.7); EOSINOPHILS % (AUTO) 4.7 %; HCT - HEMATOCRIT 41.1 % (42.0-52.0); HGB - HEMOGLOBIN 13.8 g/dL (14.0-18.0); LYMPHOCYTES # (AUTO) 0.9 10^3/uL (1.5-3.5); LYMPHOCYTES % (AUTO) 9.7 %; MEAN CORPUSCULAR HEMOGLOBIN 32.4 pg (27.0-31.0); MEAN CORPUSCULAR HGB CONC 33.6 g/dL (32.0-36.0); MEAN CORPUSCULAR VOLUME 96.5 fL (80.0-94.0); MONOCYTES # (AUTO) 0.5 10^3/uL (0.0-1.0); MONOCYTES % (AUTO) 5.7 %; NEUTROPHILS # (AUTO) 7.5 10^3/uL (1.5-6.6); NEUTROPHILS % (AUTO) 79.3 %; PLT - PLATELET COUNT 262 10^3/uL (130-450); RED BLOOD COUNT 4.26 10^6/uL (4.70-6.10); RED CELL DISTRIBUTION WIDTH 12.9 % (12.0-15.0); WHITE BLOOD COUNT 9.5 x10^3/uL (4.8-10.8)
[2022-04-15 18:44] LABS: ALBUMIN 4.9 g/dL (3.2-5.5); ALBUMIN/GLOBULIN RATIO 1.5 (1.0-2.2); BILIRUBIN,TOTAL 0.7 mg/dL (0.2-1.0); CALCIUM 9.8 mg/dL (8.5-10.3); CREATININE 0.9 mg/dL (0.6-1.2); POTASSIUM 4.2 mmol/L (3.5-5.0); TOTAL PROTEIN 8.1 g/dL (6.7-8.2)
[2022-04-15] MEDS ORDERED: iohexoL-300 100 ML VIAL ONE (21:32)
--- NOTE | 2022-04-15 23:31 | CT Report ---
PROCEDURE: ABDOMEN/PELVIS W INDICATIONS: RLQ abd pain CONTRAST: Omni 300 100ml TECHNIQUE: After the administration of intravenous contrast, 5 mm thick sections acquired from the diaphragms to the symphysis. 5 mm thick coronal and sagittal reformats were acquired. For radiation dose reducti on, the following was used: automated exposure control, adjustment of mA and/or kV according to tim ent size. COMPARISON: CT abdomen pelvis 12/13/2020. FINDINGS: Image quality: There is metallic streak artifact secondary to patient's right hip prosthesis limiting evaluation. Lung bases:There is mild dependent atelectasis. Heart: Heart is normal in size. ABDOMEN: Liver: No mass lesion. Gallbladder:There are dependent calcified stones within the gallbladder fundus without associated wa ll thickening or pericholecystic fluid. Biliary ducts: No biliary ductal dilatation. Pancreas: Unremarkable. Spleen: Normal in size. Adrenal Glands: No adrenal nodules. Kidneys and Ureters: No hydronephrosis. There is excreted contrast within the renal collecting syste ms limiting evaluation for renal stones. Stomach and Bowel:There is mild fluid distention of multiple small bowel loops throughout the abdome n with scattered air-fluid levels. No focal transition point to suggest obstruction. There is mild as sociated fat stranding within the mesentery. The findings are suggestive of a gastroenteritis. Multip le calcified appendicoliths are present within the appendix which appears normal in caliber without a bnormal wall thickening or periappendiceal fat stranding to suggest acute appendicitis. There is colo mikie diverticulosis without acute diverticular colitis. Peritoneum:There is a small amount of intraperitoneal free fluid within the pelvis. No free air. Ventral Wall: No hernia. Abdominal Nodes: No retroperitoneal or mesenteric adenopathy by size criteria. Vessels: Aorta and inferior vena cava are normal in size. PELVIS: Pelvic Organs: Unremarkable. Bladder: Unremarkable. Pelvic Nodes: No enlarged lymph nodes. Miscellaneous: No inguinal hernias are seen. Bones: Visualized osseous structures demonstrate no suspicious focal lesions. IMPRESSION: 1. Multiple small appendicoliths identified without evidence of acute appendicitis. 2. Multiple mildly distended loops of small bowel with scattered air-fluid levels associated with mil d fat stranding and mesenteric edema. The findings likely represent an infectious or inflammatory ent eritis. No definite evidence of bowel obstruction. 3. Small amount of intraperitoneal free fluid is nonspecific but likely reactive. Reviewed by: Joselo Rodas MD on 04/15/2022 11:38 PM PST Approved by: Joselo Rodas MD on 04/15/2022 11:38 PM PST Station ID: [id number]
[2022-04-16] MEDS ORDERED: iohexoL-300 100 ML VIAL IVP ONE (03:24)
--- NOTE | 2022-04-16 04:05 | ED Physician Documentation ---
PD HPI ABD PAIN - Stated complaint Stated Complaint: ABD PAIN - Chief complaint Chief Complaint: Abd Pain - History obtained from History obtained from: Patient - Additional information Additional information: 57yM with pmh chronic alcoholism (sober at present), pancreatitis, multiple medical issues, p/w abdominal pain waking him yesterday morning, sharp/sore, BL LQ pain radiating to back, constant, worse with eating and with working out. patient went to walk in clinic and was told to come to ED. denies diarrhea, fever, urinary sx. does have some nausea but no vomiting. Review of Systems Ten Systems: 10 systems reviewed and negative Constitutional: denies: Fever, Chills GI: reports: Abdominal Pain, Nausea. denies: Vomiting, Diarrhea : denies: Dysuria PD PAST MEDICAL HISTORY - Past Medical History Past Medical History: Yes Cardiovascular: Hypertension, High cholesterol Respiratory: Sleep apnea, CPAP use Neuro: Headaches, Other Endocrine/Autoimmune: None, Other GI: GERD, Pancreatitis, Cirrhosis : Incontinence HEENT: None Psych: Depression, Anxiety, Panic attacks, Claustrophobia Musculoskeletal: Osteoarthritis Derm: None - Past Surgical History Past Surgical History: Yes Ortho: Hip replacement, Arthroscopic surgery HEENT: Tracheostomy - Present Medications Home Medications: Ambulatory Orders Medication Instructions Recorded Confirmed Furosemide [Lasix] 40 mg PO DAILY 08/19/19 03/31/21 Cholecalciferol [Vitamin D3] 1,000 units PO DAILY 01/17/20 03/31/21 Multivitamin W/Minerals [Theragran 1 each PO DAILY 01/17/20 03/31/21 M] Propranolol [Inderal] 30 mg PO BID 01/17/20 03/31/21 Pantoprazole Sodium 40 mg PO DAILY 06/14/20 03/31/21 Doxepin [SINEquan] 50 mg PO QPM 11/23/20 03/31/21 Gabapentin [Neurontin] 300 mg PO TID 11/23/20 03/31/21 Folic Acid/Vit B Complex and C 1 tab PO DAILY 11/24/20 03/31/21 [B-Complex with Vit C Tablet] LORazepam [Ativan] 1 mg PO BID #0 11/27/20 03/31/21 Ondansetron Odt [Zofran Odt] 4 mg TL Q6H PRN #20 tablet 12/09/20 03/31/21 Spironolactone [Aldactone] 100 mg PO DAILY 12/13/20 03/31/21 Thiamine [Vitamin B-1] 100 mg PO DAILY #30 tablet 12/15/20 03/31/21 hydrOXYzine pamoate [Vistaril] 50 mg Q6HR PRN 02/21/21 03/31/21 methocarbamoL [Methocarbamol] 2 tab Q6HR PRN 02/21/21 03/31/21 - Allergies Allergies/Adverse Reactions: Allergies Allergy/AdvReac Type Severity Reaction Status Date / Time lisinopril Allergy Mild Anaphylaxis Verified 04/15/22 18:06 - Social History Does the pt smoke?: No Smoking Status: Never smoker Does the pt drink ETOH?: Yes Does the pt have substance abuse?: No - Immunizations Immunizations are current?: Yes Immunizations: Other immun not current - POLST Patient has POLST: No POLST Status: Full Code (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 and to [employer], 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.) PD ED PE NORMAL - Vitals Vital signs reviewed: Yes - General General: 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, No acute distress, Well developed/nourished - HEENT HEENT: Atraumatic, PERRL, EOMI - Neck Neck: Supple, no meningeal sign - Cardiac Cardiac: RRR - Respiratory Respiratory: No respiratory distress, Clear bilaterally - Abdomen Abdomen: Non tender, Non distended - Back Back: No CVA TTP - Derm Derm: Normal color, Warm and dry - Extremities Extremities: No deformity - Neuro Neuro: 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, No motor deficit, No sensory deficit - Psych Psych: Normal mood, Normal affect Results - Vitals Vitals: Vital Signs - 24 hr 04/15/22 04/15/22 04/15/22 18:02 20:42 21:57 Temperature 36.3 C L Heart Rate 61 99 50 L Respiratory 16 17 15 Rate Blood Pressure 127/88 H 99/77 O2 Saturation 99 99 99 04/15/22 04/15/22 04/16/22 23:01 23:40 01:50 Temperature Heart Rate 52 L 60 60 Respiratory 15 15 15 Rate Blood Pressure 104/75 103/72 O2 Saturation 100 100 99 Oxygen O2 Source Room air - Labs Labs: Laboratory Tests 04/15/22 04/15/22 04/15/22 18:25 18:25 21:55 WBC 9.5 RBC 4.26 L Hgb 13.8 L Hct 41.1 L MCV 96.5 H MCH 32.4 H MCHC 33.6 RDW 12.9 Plt Count 262 MPV 9.0 Neut # (Auto) 7.5 H Lymph # (Auto) 0.9 L Dundy # (Auto) 0.5 Eos # (Auto) 0.5 Baso # (Auto) 0.0 Absolute Nucleated RBC 0.00 Nucleated RBC % 0.0 Sodium 132 L Potassium 4.2 Chloride 98 L Carbon Dioxide 26 Anion Gap 8.0 BUN 14 Creatinine 0.9 Estimated GFR (MDRD) 87 L Glucose 146 H Calcium 9.8 Total Bilirubin 0.7 AST 24 ALT 19 Alkaline Phosphatase 98 Total Protein 8.1 Albumin 4.9 Globulin 3.2 Albumin/Globulin Ratio 1.5 Lipase 25 Ethyl Alcohol < 5.0 PD MEDICAL DECISION MAKING - ED course ED course: 57yM presented with abdominal pain. benign abdominal exam. labwork nonfocal. CT showed mild enteritis that could be inflammatory vs infectious. discussed with patient who will f/u with his GI. return precautions given. Departure - Departure Disposition: 01 Home, Self Care Clinical Impression: Abdominal pain, Enteritis Condition: Good Instructions: Abdominal Pain Comments: You were seen in the ed for abdominal pain. Your labwork and CT uncovered no acute emergent issues, but you do appear to have inflammation in the intestines (mild enteritis). This could be due to diet or potentially be a stomach bug. Please follow up with your primary care provider and your GI at . Return to the ED if you have any new or worsening symptoms or other concerns.
[2022-04-16 04:15] VITALS: BP 110/70
== END 2022-04-16 04:15 | disposition home or self-care (01) ==
LOC: EDUNIT# → EDBD → ED 18:00
DX: K52.9 Noninfective gastroenteritis and colitis, unspecified (principal)
CPT/HCPCS: 36415; 74177; 80053; 83690; 85025; 99282; 99284; G0480; Q9967; 80320

== ENCOUNTER 2022-07-07 23:52 | Outpatient (CLI) | payer MEDICARE, MEDICAID | END 2022-07-07 23:53 | disposition critical access hospital (66) | LOC: EMS 23:52 | DX: R41.82 Altered mental status, unspecified (principal); Z72.89 Other problems related to lifestyle | CPT/HCPCS: A0425; A0429 ==

== ENCOUNTER 2022-07-08 00:09 | Emergency (ER) | payer MEDICARE, MEDICAID ==
--- NOTE | 2022-07-08 00:09 | ED Physician Documentation ---
PD HPI ALTERED MENTAL STATUS - Stated complaint Stated Complaint: AMS, ETOH - History obtained from History obtained from: EMS - History of Present Illness Quality / character: Unresponsive Basline status: 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, Ambulatory, Independent - Additional information Additional information: HPI is provided by EMS. Patient is brought in by ambulance. EMS indicates that their information is predominantly from the patient's mother, with whom the patient lives, but they were also able to get a little bit of information from the patient himself. Patient is too altered to provide HPI on my H&P at this time. Patient is brought in by ambulance for altered mental status. Patient's mother found the patient unresponsive, and thus she called 911. Reportedly, she was instructed to start CPR; unclear if this was done. EMS arrived to find patient somnolent, although they were able at times to briefly awaken him to verbal combined with tactile. This patient has a long history of frequent visits to this emergency department, with a history of alcoholism and many previous visits related to his alcoholism. EMS says that patient's mother insisted patient did not drink any alcohol today. EMS says that patient did admit to them that he had been drinking alcohol today. On route to ED, patient occasionally became briefly hypoxic, responding to painful stimuli such as a light, brief sternal rub. Blood sugar by fingerstick performed by EMS was 101. Review of Systems Unable to obtain: AMS PD PAST MEDICAL HISTORY - Past Medical History Past Medical History: Yes - Present Medications Home Medications: Ambulatory Orders Medication Instructions Recorded Confirmed Furosemide [Lasix] 40 mg PO DAILY 08/19/19 03/31/21 Cholecalciferol [Vitamin D3] 1,000 units PO DAILY 01/17/20 03/31/21 Multivitamin W/Minerals [Theragran 1 each PO DAILY 01/17/20 03/31/21 M] Propranolol [Inderal] 30 mg PO BID 01/17/20 03/31/21 Pantoprazole Sodium 40 mg PO DAILY 06/14/20 03/31/21 Doxepin [SINEquan] 50 mg PO QPM 11/23/20 03/31/21 Gabapentin [Neurontin] 300 mg PO TID 11/23/20 03/31/21 Folic Acid/Vit B Complex and C 1 tab PO DAILY 11/24/20 03/31/21 [B-Complex with Vit C Tablet] LORazepam [Ativan] 1 mg PO BID #0 11/27/20 03/31/21 Ondansetron Odt [Zofran Odt] 4 mg TL Q6H PRN #20 tablet 12/09/20 03/31/21 Spironolactone [Aldactone] 100 mg PO DAILY 12/13/20 03/31/21 Thiamine [Vitamin B-1] 100 mg PO DAILY #30 tablet 12/15/20 03/31/21 hydrOXYzine pamoate [Vistaril] 50 mg Q6HR PRN 02/21/21 03/31/21 methocarbamoL [Methocarbamol] 2 tab Q6HR PRN 02/21/21 03/31/21 - Allergies Allergies/Adverse Reactions: Allergies Allergy/AdvReac Type Severity Reaction Status Date / Time lisinopril Allergy Mild Anaphylaxis Verified 04/15/22 18:06 - Living Situation Living Situation: reports: With family (lives with his mother) PD ED PE NORMAL - Vitals Vital signs reviewed: Yes - General General: Well developed/nourished - HEENT HEENT: Atraumatic, PERRL, EOMI - Cardiac Cardiac: RRR, No murmur - Respiratory Respiratory: No respiratory distress, Clear bilaterally - Abdomen Abdomen: Soft, Non tender, Non distended - Derm Derm: Normal color, Warm and dry - Neuro Eye Opening: To Voice Motor: Obeys Commands Verbal: Incomprehensible GCS Score: 11 PD ED PE EXPANDED - General General: Well developed/nourished, Lethargic, Other (follows simple commands; does not answer most questions, and is incomprehensible with answers on my HPI/R OS) Results - Vitals Vitals: Vital Signs - 24 hr 07/08/22 07/08/22 07/08/22 01:03 02:13 03:48 Heart Rate 72 67 75 Respiratory 15 12 17 Rate Blood Pressure 122/94 H 98/77 106/88 H O2 Saturation 99 100 96 07/08/22 07/08/22 07/08/22 06:00 08:00 10:00 Heart Rate 70 73 81 Respiratory 15 17 14 Rate Blood Pressure 90/67 93/73 109/82 H O2 Saturation 96 98 97 07/08/22 12:51 Heart Rate 78 Respiratory 18 Rate Blood Pressure 135/78 H O2 Saturation 99 Oxygen O2 Source Room air - Labs Labs: Laboratory Tests 07/08/22 07/08/22 07/08/22 00:24 00:24 00:24 WBC 10.6 RBC 3.89 L Hgb 12.2 L Hct 36.8 L MCV 94.6 H MCH 31.4 H MCHC 33.2 RDW 13.0 Plt Count 224 MPV 9.1 Neut # (Auto) 7.1 H Lymph # (Auto) 2.3 Heard # (Auto) 0.7 Eos # (Auto) 0.4 Baso # (Auto) 0.0 Absolute Nucleated RBC 0.00 Nucleated RBC % 0.0 Sodium 134 L Potassium 3.7 Chloride 97 L Carbon Dioxide 24 Anion Gap 13.0 BUN 11 Creatinine 0.8 Estimated GFR (MDRD) 99 Glucose 106 H Calcium 8.6 Total Bilirubin 0.3 AST 53 H ALT 22 Alkaline Phosphatase 70 Total Protein 7.1 Albumin 3.7 Globulin 3.4 Albumin/Globulin Ratio 1.1 Lipase 22 TSH 0.21 L Urine Color Urine Clarity Urine pH Ur Specific [place] Urine Protein Urine Glucose (UA) Urine Ketones Urine Occult Blood Urine Nitrite Urine Bilirubin Urine Urobilinogen Ur Leukocyte Esterase Ur Microscopic Review Urine Culture Comments Salicylates < 6.0 Urine Opiates Screen Ur Oxycodone Screen Urine Methadone Screen Ur Propoxyphene Screen Acetaminophen < 10 L Ur Barbiturates Screen Ur Tricyclics Screen Ur Phencyclidine Scrn Ur Amphetamine Screen U Methamphetamines Scrn U Benzodiazepines Scrn Urine Cocaine Screen U Cannabinoids Screen Ethyl Alcohol 334.1 07/08/22 00:37 WBC RBC Hgb Hct MCV MCH MCHC RDW Plt Count MPV Neut # (Auto) Lymph # (Auto) Heard # (Auto) Eos # (Auto) Baso # (Auto) Absolute Nucleated RBC Nucleated RBC % Sodium Potassium Chloride Carbon Dioxide Anion Gap BUN Creatinine Estimated GFR (MDRD) Glucose Calcium Total Bilirubin AST ALT Alkaline Phosphatase Total Protein Albumin Globulin Albumin/Globulin Ratio Lipase TSH Urine Color YELLOW Urine Clarity CLEAR Urine pH 7.0 Ur Specific [place] 1.010 Urine Protein NEGATIVE Urine Glucose (UA) NEGATIVE Urine Ketones NEGATIVE Urine Occult Blood NEGATIVE Urine Nitrite NEGATIVE Urine Bilirubin NEGATIVE Urine Urobilinogen 0.2 (NORMAL) Ur Leukocyte Esterase NEGATIVE Ur Microscopic Review NOT INDICATED Urine Culture Comments NOT INDICATED Salicylates Urine Opiates Screen NEGATIVE Ur Oxycodone Screen NEGATIVE Urine Methadone Screen NEGATIVE Ur Propoxyphene Screen NEGATIVE Acetaminophen Ur Barbiturates Screen NEGATIVE Ur Tricyclics Screen NEGATIVE Ur Phencyclidine Scrn NEGATIVE Ur Amphetamine Screen NEGATIVE U Methamphetamines Scrn POSITIVE H U Benzodiazepines Scrn POSITIVE H Urine Cocaine Screen NEGATIVE U Cannabinoids Screen POSITIVE H Ethyl Alcohol PD Medical Decision Making - ED course Complexity details: reviewed old records, reviewed results, re-evaluated patient, considered differential, d/w patient ED course: Labs ordered and results reviewed by me: CBC, ER abdominal panel, serum ethanol level, serum Tylenol level, serum salicylate level, urinalysis, urine drug screen, TSH. Most notable results of these tests are a serum ethanol level of 334, urine drug screen positive for cannabinoids, methamphetamines, benzodiazepines. Plan is to monitor patient in the ED until he is awake, alert, and conversant such that appropriate disposition can be determined. Patient slept for the remainder of my shift with stable vital signs. Care of patient is turned over to oncoming ED physician (Dr. Pérez); disposition of patient to be determined based on when patient is awake, alert, and appropriately conversant so as to discussed with him appropriate disposition Departure - Departure Disposition: 01 Home, Self Care Clinical Impression: Alcohol intoxication Condition: Stable Instructions: ED Alcohol Intoxication Comments: You were in the emergency department overnight because you are too much alcohol in your system.Please consider getting help for your alcohol use. [facility] [address] Main The [facility] offers a monitored and safe setting for individuals withdrawing from alcohol and drugs, and counseling for individuals experiencing a mental health crisis. All services are provided in a 10-bed facility where intensive medical monitoring is required along with stabilization services. The goal of these services is to assess a clients mental health and substance use disorder related needs, and assist them in accessing the services they need to recover. Discharge Date/Time: 07/08/22 12:51
[2022-07-08] MEDS ORDERED: SODIUM CHLORIDE 0.9% 1,000 ML IV STA (00:18)
[2022-07-08 00:38] LABS: BASOPHILS % (AUTO) 0.2 %; EOSINOPHILS # (AUTO) 0.4 10^3/uL (0.0-0.7); HCT - HEMATOCRIT 36.8 % (42.0-52.0); HGB - HEMOGLOBIN 12.2 g/dL (14.0-18.0); LYMPHOCYTES # (AUTO) 2.3 10^3/uL (1.5-3.5); LYMPHOCYTES % (AUTO) 21.6 %; MEAN CORPUSCULAR HEMOGLOBIN 31.4 pg (27.0-31.0); MEAN CORPUSCULAR HGB CONC 33.2 g/dL (32.0-36.0); MEAN CORPUSCULAR VOLUME 94.6 fL (80.0-94.0); MEAN PLATELET VOLUME 9.1 fL (7.4-11.4); MONOCYTES # (AUTO) 0.7 10^3/uL (0.0-1.0); MONOCYTES % (AUTO) 6.7 %; NEUTROPHILS # (AUTO) 7.1 10^3/uL (1.5-6.6); NEUTROPHILS % (AUTO) 67.2 %; PLT - PLATELET COUNT 224 10^3/uL (130-450); RED BLOOD COUNT 3.89 10^6/uL (4.70-6.10); WHITE BLOOD COUNT 10.6 x10^3/uL (4.8-10.8)
[2022-07-08 00:40] LABS: MUDS CUTOFF CONCENTRATIONS CUTOFF CONC BELOW:
[2022-07-08 00:45] LABS: BILIRUBIN,URINE NEGATIVE (NEGATIVE); CLARITY,URINE CLEAR (CLEAR); GLUCOSE, URINE (UA) NEGATIVE (NEGATIVE); KETONES,URINE (UA) NEGATIVE (NEGATIVE); LEUKOCYTE ESTERASE, URINE NEGATIVE (NEGATIVE); NITRITE,URINE NEGATIVE (NEGATIVE); OCCULT BLOOD,URINE NEGATIVE (NEGATIVE); PROTEIN,URINE NEGATIVE (NEGATIVE); UROBILINOGEN,URINE 0.2 (NORMAL) E.U./dL (NORMAL)
[2022-07-08 00:51] LABS: ACETAMINOPHEN < 10 ug/mL (10-30); ALBUMIN 3.7 g/dL (3.2-5.5); ALBUMIN/GLOBULIN RATIO 1.1 (1.0-2.2); ALKALINE PHOSPHATASE 70 IU/L (42-121); ALT ALANINE AMINOTRANSFERASE 22 IU/L (10-60); AST ASPARTATE AMINOTRANSFERASE 53 IU/L (10-42); BILIRUBIN,TOTAL 0.3 mg/dL (0.2-1.0); BUN - BLOOD UREA NITROGEN 11 mg/dL (6-20); CALCIUM 8.6 mg/dL (8.5-10.3); CARBON DIOXIDE - CO2 24 mmol/L (21-32); CHLORIDE 97 mmol/L (101-111); CREATININE 0.8 mg/dL (0.6-1.2); ETOH - ETHANOL 334.1 mg/dL; GFR - MDRD 99 (>89); GLUCOSE 106 mg/dL (70-100); LIPASE 22 U/L (22-51); POTASSIUM 3.7 mmol/L (3.5-5.0); SALICYLATE < 6.0 mg/dL; SODIUM 134 mmol/L (135-145); TOTAL PROTEIN 7.1 g/dL (6.7-8.2)
[2022-07-08 00:54] LABS: COCAINE SCREEN URINE NEGATIVE (NEGATIVE); THC CANNABINOID SCREEN, URINE POSITIVE (NEGATIVE)
[2022-07-08 00:55] LABS: AMPHETAMINE SCREEN,URINE NEGATIVE (NEGATIVE); BARBITURATE SCREEN,UR NEGATIVE (NEGATIVE); BENZODIAZEPINES SCREEN, URINE POSITIVE (NEGATIVE); METHADONE SCREEN, URINE NEGATIVE (NEGATIVE); METHAMPHETAMINES SCREEN, URINE POSITIVE (NEGATIVE); OPIATE SCREEN, URINE NEGATIVE (NEGATIVE); OXYCODONE SCREEN, URINE NEGATIVE (NEGATIVE); PROPOXYPHENE SCREEN, URINE NEGATIVE (NEGATIVE); TRICYCLIC ANTIDEPRESSANT,URINE NEGATIVE (NEGATIVE)
--- NOTE | 2022-07-08 12:07 | ED Physician Documentation ---
ED Addendum - Addendum Addendum: 07/08/22 12:06 Patient received in signout from Dr. Orellana. He has a history of alcohol abuse and arrives intoxicated. Plan is to allow him to metabolize and discharge once he is clinically sober. Patient is able to wake up. Able to hold a clear conversation.He has not ready to quit alcohol use. Discussed with RN to do a quick road test. His mother is here who can give him a safe ride home. Pt was able to pass road test and now appears clinically sober for discharge. Departure - Departure Disposition: Home, Self Care Clinical Impression: Alcohol intoxication Condition: Stable Instructions: ED Alcohol Intoxication Comments: You were in the emergency department overnight because you are too much alcohol in your system.Please consider getting help for your alcohol use. [facility] [address] [place] [address] Main The [facility] offers a monitored and safe setting for individuals withdrawing from alcohol and drugs, and counseling for individuals experiencing a mental health crisis. All services are provided in a 10-bed facility where intensive medical monitoring is required along with stabilization services. The goal of these services is to assess a clients mental health and substance use disorder related needs, and assist them in accessing the services they need to recover. Discharge Date/Time: 07/08/22 12:51
[2022-07-08 12:54] VITALS: BP 135/78
== END 2022-07-08 12:51 | disposition home or self-care (01) ==
LOC: EDUNIT# → EDBD → ED 00:09
DX: F10.129 Alcohol abuse with intoxication, unspecified (principal); Y90.8 Blood alcohol level of 240 mg/100 ml or more
CPT/HCPCS: 36415; 80053; 80306; 80307; 81003; 83690; 84443; 85025; 96360; 99283; 99284; G0480; 80320; 80329; 81001; 87086

== ENCOUNTER 2022-07-29 11:46 | Outpatient (CLI) | payer MEDICARE, MEDICAID ==
[2022-07-29 18:21] LABS: CHOL/HDL RATIO 2.7 (<5.0); CHOLESTEROL 197 mg/dL; HDL CHOLESTEROL 74 mg/dL; LDL CHOLESTEROL,CALCULATED 115 mg/dL; LDL/HDL RATIO 1.6 (<3.6); TRIGLYCERIDES 40 mg/dL; VLDL CHOLESTEROL 8 mg/dL
== END 2022-07-29 11:47 | disposition home or self-care (01) ==
LOC: LAB.N 11:46
PROVIDERS: ATTEND Physician Assistant
DX: Z13.220 Encounter for screening for lipoid disorders (principal)
CPT/HCPCS: 36415; 80061; 83721

== ENCOUNTER 2022-08-13 10:46 | Outpatient (CLI) | payer MEDICARE, MEDICAID ==
--- NOTE | 2022-08-13 17:58 | DEXA Report ---
PROCEDURE: Dexa Spine and/or Hip INDICATIONS: AT RISK FOR FALLS TECHNIQUE: Dual energy x-ray absorptiometry (DXA) was performed on a [employer] System. Regions measur ed are the AP Spine, femoral neck, and if needed forearm. COMPARISON: None. FINDINGS: Lumbar Spine: Bone Mineral Density 1.104 g/cm/cm,T score -0.8, normal Left Femoral Neck: Bone Mineral Density 0.817 g/cm/cm, T score -1.9, osteopenia Left Hip: Bone Mineral Density 0.783 g/cm/cm,T score -2.2, osteopenia (T score greater or equal to -1.0: NORMAL) (T score from -1.1 to -2.4: OSTEOPENIA) (T score less than or equal to -2.5 to: OSTEOPOROSIS) Impression: Osteopenia Patients with diagnosis of osteoporosis or osteopenia should have regular bone mineral density assess ment. For those eligible for Medicare, routine testing is allowed once every 2 years. Testing frequ ency can be increased for patients who have rapidly progressing disease or for those who are receivin g medical therapy to restore bone mass. Reviewed by: Chon Moran MD on 08/13/2022 4:57 PM AKST Approved by: Chon Moran MD on 08/13/2022 4:57 PM AKST Station ID: [id number]
== END 2022-08-13 10:47 | disposition home or self-care (01) ==
LOC: DI 10:46
PROVIDERS: ATTEND Physician Assistant
DX: Z91.81 History of falling (principal); M85.89 Other specified disorders of bone density and structure, multiple sites

== ENCOUNTER 2022-11-25 22:17 | Outpatient (CLI) | payer MEDICARE, MEDICAID | END 2022-11-25 22:18 | disposition critical access hospital (66) | LOC: EMS 22:17 | DX: R55 Syncope and collapse (principal); R47.81 Slurred speech | CPT/HCPCS: A0425; A0429 ==

== ENCOUNTER 2022-11-25 22:35 | Emergency (ER) | payer MEDICARE, MEDICAID ==
[2022-11-25 23:02] LABS: BASOPHILS % (AUTO) 0.4 %; EOSINOPHILS # (AUTO) 0.6 10^3/uL (0.0-0.7); EOSINOPHILS % (AUTO) 10.3 %; HCT - HEMATOCRIT 26.1 % (42.0-52.0); HGB - HEMOGLOBIN 8.7 g/dL (14.0-18.0); LYMPHOCYTES # (AUTO) 1.4 10^3/uL (1.5-3.5); LYMPHOCYTES % (AUTO) 24.1 %; MEAN CORPUSCULAR HEMOGLOBIN 31.6 pg (27.0-31.0); MEAN CORPUSCULAR HGB CONC 33.3 g/dL (32.0-36.0); MEAN CORPUSCULAR VOLUME 94.9 fL (80.0-94.0); MEAN PLATELET VOLUME 8.6 fL (7.4-11.4); MONOCYTES # (AUTO) 0.6 10^3/uL (0.0-1.0); MONOCYTES % (AUTO) 10.9 %; NEUTROPHILS % (AUTO) 54.1 %; PLT - PLATELET COUNT 421 10^3/uL (130-450); RED BLOOD COUNT 2.75 10^6/uL (4.70-6.10); RED CELL DISTRIBUTION WIDTH 13.2 % (12.0-15.0); WHITE BLOOD COUNT 5.6 x10^3/uL (4.8-10.8)
[2022-11-25 23:34] LABS: ALBUMIN 3.5 g/dL (3.2-5.5); ALBUMIN/GLOBULIN RATIO 1.1 (1.0-2.2); BILIRUBIN,TOTAL 1.2 mg/dL (0.2-1.0); CALCIUM 8.9 mg/dL (8.5-10.3); CREATININE 0.9 mg/dL (0.6-1.2); POTASSIUM 3.6 mmol/L (3.5-5.0); TOTAL PROTEIN 6.7 g/dL (6.7-8.2)
--- NOTE | 2022-11-26 01:38 | ED Physician Documentation ---
PD HPI SYNCOPE - Stated complaint Stated Complaint: SYNCOPE - Chief complaint Chief Complaint: Neuro - History obtained from History obtained from: Patient - Additional information Additional information: HPI from patient. Patient had syncopal episode tonight. Patient says he underwent right hip surgery 11/13. Earlier today he had sutures removed from the surgical site. He says that tonight he had syncopal episode. He does not recall events leading up to the episode, but recalls waking up with his mother holding him while he was on the floor and EMS evaluating him. Mother told EMS patient had syncopal episode with LOC lasting nearly 30 minutes. Patient is asymptomatic on my HPI. Denies chest pain, [place], dyspnea, weakness, numbness, visual changes. No report of injury nor seizure activity. Review of Systems Constitutional: denies: Fever Eyes: reports: Reviewed and negative Cardiac: reports: Reviewed and negative Respiratory: reports: Reviewed and negative GI: reports: Reviewed and negative : denies: Incontinent PD PAST MEDICAL HISTORY - Past Medical History Past Medical History: Yes Cardiovascular: Hypertension, High cholesterol Respiratory: Sleep apnea, CPAP use Neuro: Headaches, Other Endocrine/Autoimmune: None, Other GI: GERD, Pancreatitis, Cirrhosis : Incontinence HEENT: None Psych: Depression, Anxiety, Panic attacks, Claustrophobia Musculoskeletal: Osteoarthritis Derm: None - Past Surgical History Past Surgical History: Yes Ortho: Hip replacement, Arthroscopic surgery HEENT: Tracheostomy - Present Medications Home Medications: Ambulatory Orders Medication Instructions Recorded Confirmed Furosemide [Lasix] 40 mg PO DAILY 08/19/19 03/31/21 Cholecalciferol [Vitamin D3] 1,000 units PO DAILY 01/17/20 03/31/21 Multivitamin W/Minerals [Theragran 1 each PO DAILY 01/17/20 03/31/21 M] Propranolol [Inderal] 30 mg PO BID 01/17/20 03/31/21 Pantoprazole Sodium 40 mg PO DAILY 06/14/20 03/31/21 Doxepin [SINEquan] 50 mg PO QPM 11/23/20 03/31/21 Gabapentin [Neurontin] 300 mg PO TID 11/23/20 03/31/21 Folic Acid/Vit B Complex and C 1 tab PO DAILY 11/24/20 03/31/21 [B-Complex with Vit C Tablet] LORazepam [Ativan] 1 mg PO BID #0 11/27/20 03/31/21 Ondansetron Odt [Zofran Odt] 4 mg TL Q6H PRN #20 tablet 12/09/20 03/31/21 Spironolactone [Aldactone] 100 mg PO DAILY 12/13/20 03/31/21 Thiamine [Vitamin B-1] 100 mg PO DAILY #30 tablet 12/15/20 03/31/21 hydrOXYzine pamoate [Vistaril] 50 mg Q6HR PRN 02/21/21 03/31/21 methocarbamoL [Methocarbamol] 2 tab Q6HR PRN 02/21/21 03/31/21 - Allergies Allergies/Adverse Reactions: Allergies Allergy/AdvReac Type Severity Reaction Status Date / Time lisinopril Allergy Mild Anaphylaxis Verified 11/25/22 22:52 - Social History Does the pt smoke?: No Smoking Status: Never smoker Does the pt drink ETOH?: Yes Does the pt have substance abuse?: No - Immunizations Immunizations are current?: Yes Immunizations: Other immun not current - POLST Patient has POLST: No POLST Status: Full Code (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, 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.) PD ED PE NORMAL - Vitals Vital signs reviewed: Yes - General General: 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, No acute distress, Well developed/nourished, Other (tangential; frequently needs to be redirected to conversation and questions being answered) - HEENT HEENT: Atraumatic, PERRL, EOMI, Moist mucous membranes - Neck Neck: Supple, no meningeal sign, No bony TTP - Cardiac Cardiac: RRR, No murmur, No gallop, No rub - Respiratory Respiratory: No respiratory distress, Clear bilaterally - Abdomen Abdomen: Soft, Non tender - Extremities Extremities: No deformity, Normal ROM s pain, No edema - Neuro Neuro: 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, manager intel 2-12 intact, No motor deficit, No sensory deficit, Normal speech Eye Opening: Spontaneous Motor: Obeys Commands Verbal: Oriented GCS Score: 15 Results - Vitals Vitals: Oxygen O2 Source Room air - EKG (time done) No standard instances EKG releavant findings:: EKG personally interpreted by author of this note. Relevant findings are: Rate: Rate (enter#) (88) Rhythm: NSR [place]: Normal Intervals: Normal [place] QRS: Normal Ischemia: Normal ST segments Compare to prior EKG: Unchanged from prior EKG (similar pattern compared to 10/08/21 and 11/02/21) - Labs Labs: Laboratory Tests 11/25/22 11/25/22 11/25/22 22:58 22:58 22:58 WBC 5.6 RBC 2.75 L Hgb 8.7 L Hct 26.1 L MCV 94.9 H MCH 31.6 H MCHC 33.3 RDW 13.2 Plt Count 421 MPV 8.6 Neut # (Auto) 3.0 Lymph # (Auto) 1.4 L [place] # (Auto) 0.6 Eos # (Auto) 0.6 Baso # (Auto) 0.0 Absolute Nucleated RBC 0.00 Nucleated RBC % 0.0 Sodium 133 L Potassium 3.6 Chloride 91 L Carbon Dioxide 29 Anion Gap 13.0 BUN 15 Creatinine 0.9 Estimated GFR (MDRD) 87 L Glucose 72 POC Whole Bld Glucose Calcium 8.9 Total Bilirubin 1.2 H AST 169 H ALT 65 H Alkaline Phosphatase 57 Troponin I High Sens 3.3 Total Protein 6.7 Albumin 3.5 Globulin 3.2 Albumin/Globulin Ratio 1.1 Lipase 19 L 11/25/22 11/26/22 23:26 02:35 WBC RBC Hgb Hct MCV MCH MCHC RDW Plt Count MPV Neut # (Auto) Lymph # (Auto) [place] # (Auto) Eos # (Auto) Baso # (Auto) Absolute Nucleated RBC Nucleated RBC % Sodium Potassium Chloride Carbon Dioxide Anion Gap BUN Creatinine Estimated GFR (MDRD) Glucose POC Whole Bld Glucose 67 L 97 Calcium Total Bilirubin AST ALT Alkaline Phosphatase Troponin I High Sens Total Protein Albumin Globulin Albumin/Globulin Ratio Lipase PD Medical Decision Making - ED course Complexity details: reviewed results, re-evaluated patient, considered differential, d/w patient ED course: No concerning nor diagnostic findings on tonights tests including blood tests, EKG. He has mild anemia with hgb 8.7; this is not his baseline h/h but not low enough to likely cause symptoms nor need further emergent investigation. Incidental note made of mildly abnormal LFTs (1.2 bilirubin, 169 AST, 65 ALT). hs-cTn is normal (3.3). Cause of syncope is not apparent at this time. Results d/w patient, return precautions reviewed, advised to follow up with PMD next available appointment for reevaluation. Departure - Departure Disposition: 01 Home, Self Care Clinical Impression: Syncope Condition: Good Instructions: ED Fainting Unkn Cause Follow-Up: Nancie Gloria PA-C [Primary Care Provider] - Comments: None of the findings on tonight's blood tests would explain why you passed out tonight. As we discussed, you do have anemia, with red blood cell levels that are lower than they have been for the past few years. However, they are not low enough to have caused you to pass out. This is an incidental finding, but it is very important to follow-up with your primary care provider for further testing including possible retesting of your red blood cell level. Your EKG did not have any acute nor concerning findings, and your cardiac enzyme blood test was normal. Discharge Date/Time: 11/26/22 04:48
[2022-11-26 03:27] VITALS: BP 93/66
== END 2022-11-26 04:48 | disposition home or self-care (01) ==
LOC: EDUNIT# → ED 22:35
DX: R55 Syncope and collapse (principal); I10 Essential (primary) hypertension; E78.00 Pure hypercholesterolemia, unspecified; Z79.899 Other long term (current) drug therapy
CPT/HCPCS: 36415; 80053; 83690; 84484; 85025; 93005; 99283; 99284

== ENCOUNTER 2022-12-05 12:07 | Outpatient (CLI) | payer MEDICARE, MEDICAID ==
[2022-12-05 17:49] LABS: BASOPHILS % (AUTO) 0.6 %; EOSINOPHILS # (AUTO) 0.3 10^3/uL (0.0-0.7); EOSINOPHILS % (AUTO) 4.6 %; HCT - HEMATOCRIT 32.1 % (42.0-52.0); HGB - HEMOGLOBIN 10.6 g/dL (14.0-18.0); LYMPHOCYTES # (AUTO) 0.8 10^3/uL (1.5-3.5); LYMPHOCYTES % (AUTO) 13.4 %; MEAN CORPUSCULAR HEMOGLOBIN 30.9 pg (27.0-31.0); MEAN CORPUSCULAR VOLUME 93.6 fL (80.0-94.0); MEAN PLATELET VOLUME 9.4 fL (7.4-11.4); MONOCYTES # (AUTO) 0.7 10^3/uL (0.0-1.0); MONOCYTES % (AUTO) 10.4 %; NEUTROPHILS # (AUTO) 4.4 10^3/uL (1.5-6.6); NEUTROPHILS % (AUTO) 70.5 %; PLT - PLATELET COUNT 448 10^3/uL (130-450); RED BLOOD COUNT 3.43 10^6/uL (4.70-6.10); RED CELL DISTRIBUTION WIDTH 14.2 % (12.0-15.0); WHITE BLOOD COUNT 6.3 x10^3/uL (4.8-10.8)
[2022-12-05 18:04] LABS: INR 1.1 (0.8-1.2)
[2022-12-05 18:12] LABS: THYROID STIMULATING HORMONE 0.95 uIU/mL (0.34-5.60)
[2022-12-05 18:15] LABS: ALBUMIN 3.5 g/dL (3.2-5.5); ALBUMIN/GLOBULIN RATIO 1.1 (1.0-2.2); BILIRUBIN,TOTAL 0.5 mg/dL (0.2-1.0); CALCIUM 8.9 mg/dL (8.5-10.3); CREATININE 0.8 mg/dL (0.6-1.2); POTASSIUM 4.3 mmol/L (3.5-5.0); TOTAL PROTEIN 6.8 g/dL (6.7-8.2)
[2022-12-05 18:19] LABS: FERRITIN 85.5 ng/mL (23.9-336.2)
[2022-12-05 18:26] LABS: MAGNESIUM 2.2 mg/dL (1.7-2.8)
[2022-12-05 19:16] LABS: FOLATE > 49.60 ng/mL (5.90 - >24.8)
== END 2022-12-05 12:08 | disposition home or self-care (01) ==
LOC: LAB.N 12:07
PROVIDERS: ATTEND Physician Assistant
DX: R55 Syncope and collapse (principal); F10.20 Alcohol dependence, uncomplicated; H53.2 Diplopia; K74.60 Unspecified cirrhosis of liver; D50.9 Iron deficiency anemia, unspecified; E03.9 Hypothyroidism, unspecified; E83.42 Hypomagnesemia
CPT/HCPCS: 36415; 80053; 82607; 82728; 82746; 82977; 83540; 83735; 84425; 84443; 84466; 85025; 85610

== ENCOUNTER 2022-12-19 18:42 | Emergency (ER) | payer MEDICARE, MEDICAID ==
[2022-12-19 21:36] LABS: BASOPHILS % (AUTO) 0.4 %; EOSINOPHILS # (AUTO) 0.5 10^3/uL (0.0-0.7); EOSINOPHILS % (AUTO) 9.4 %; HCT - HEMATOCRIT 32.5 % (42.0-52.0); HGB - HEMOGLOBIN 10.5 g/dL (14.0-18.0); LYMPHOCYTES # (AUTO) 1.5 10^3/uL (1.5-3.5); LYMPHOCYTES % (AUTO) 26.9 %; MEAN CORPUSCULAR HEMOGLOBIN 30.6 pg (27.0-31.0); MEAN CORPUSCULAR HGB CONC 32.3 g/dL (32.0-36.0); MEAN CORPUSCULAR VOLUME 94.8 fL (80.0-94.0); MEAN PLATELET VOLUME 9.4 fL (7.4-11.4); MONOCYTES # (AUTO) 0.5 10^3/uL (0.0-1.0); MONOCYTES % (AUTO) 9.1 %; NEUTROPHILS # (AUTO) 2.9 10^3/uL (1.5-6.6); NEUTROPHILS % (AUTO) 53.8 %; PLT - PLATELET COUNT 227 10^3/uL (130-450); RED BLOOD COUNT 3.43 10^6/uL (4.70-6.10); RED CELL DISTRIBUTION WIDTH 14.5 % (12.0-15.0); WHITE BLOOD COUNT 5.4 x10^3/uL (4.8-10.8)
--- NOTE | 2022-12-19 21:41 | ED Physician Documentation ---
PD HPI Fall - Stated complaint Stated Complaint: GLF - Chief complaint Chief Complaint: General - History obtained from History obtained from: Patient, EMS - Additional information Additional information: BIBA. HPI is from patient as well as EMS. Patient was at the [facility] grocery store when he lost his balance and fell. 911 was called due to patient exhibiting drowsiness. EMS reports that patient was drowsy, would awaken to voice but fall asleep rapidly. EMS also noted some mild hypotension on BP reads in the field (80s/60s, improved with IV fluids to 90s SBP). FSBS 112 (by EMS). Patient tells me he fell due to loss of balance which is not unusual for him; he says he is supposed to walk with a walker and he was not using the walker in the grocery store and he feels this is what caused him to fall. Review of Systems Constitutional: reports: Reviewed and negative Cardiac: reports: Reviewed and negative Respiratory: reports: Reviewed and negative PD PAST MEDICAL HISTORY - Past Medical History Cardiovascular: Hypertension, High cholesterol Respiratory: Sleep apnea, CPAP use Neuro: Headaches, Other Endocrine/Autoimmune: None, Other GI: GERD, Pancreatitis, Cirrhosis : Incontinence HEENT: None Psych: Depression, Anxiety, Panic attacks, Claustrophobia Musculoskeletal: Osteoarthritis Derm: None - Past Surgical History Past Surgical History: Yes Ortho: Hip replacement, Arthroscopic surgery HEENT: Tracheostomy - Present Medications Home Medications: Ambulatory Orders Medication Instructions Recorded Confirmed Furosemide [Lasix] 40 mg PO DAILY 08/19/19 03/31/21 Cholecalciferol [Vitamin D3] 1,000 units PO DAILY 01/17/20 03/31/21 Multivitamin W/Minerals [Theragran 1 each PO DAILY 01/17/20 03/31/21 M] Propranolol [Inderal] 30 mg PO BID 01/17/20 03/31/21 Pantoprazole Sodium 40 mg PO DAILY 06/14/20 03/31/21 Doxepin [SINEquan] 50 mg PO QPM 11/23/20 03/31/21 Gabapentin [Neurontin] 300 mg PO TID 11/23/20 03/31/21 Folic Acid/Vit B Complex and C 1 tab PO DAILY 11/24/20 03/31/21 [B-Complex with Vit C Tablet] LORazepam [Ativan] 1 mg PO BID #0 11/27/20 03/31/21 Ondansetron Odt [Zofran Odt] 4 mg TL Q6H PRN #20 tablet 12/09/20 03/31/21 Spironolactone [Aldactone] 100 mg PO DAILY 12/13/20 03/31/21 Thiamine [Vitamin B-1] 100 mg PO DAILY #30 tablet 12/15/20 03/31/21 hydrOXYzine pamoate [Vistaril] 50 mg Q6HR PRN 02/21/21 03/31/21 methocarbamoL [Methocarbamol] 2 tab Q6HR PRN 02/21/21 03/31/21 - Allergies Allergies/Adverse Reactions: Allergies Allergy/AdvReac Type Severity Reaction Status Date / Time lisinopril Allergy Mild Anaphylaxis Verified 12/19/22 18:47 - Social History Does the pt smoke?: No Smoking Status: Never smoker Does the pt drink ETOH?: Yes Does the pt have substance abuse?: No - Immunizations Immunizations are current?: Yes Immunizations: Other immun not current - POLST Patient has POLST: No POLST Status: Full Code (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, 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.) PD ED PE NORMAL - Vitals Vital signs reviewed: Yes - General General: 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, No acute distress, Well developed/nourished - HEENT HEENT: Atraumatic, PERRL, EOMI, Moist mucous membranes - Neck Neck: No bony TTP - Cardiac Cardiac: RRR, No murmur - Respiratory Respiratory: No respiratory distress, Clear bilaterally - Abdomen Abdomen: Soft, Non tender - Back Back: No spinal TTP - Derm Derm: Normal color, Warm and dry - Extremities Extremities: No deformity, No tenderness to palpate, No edema - Neuro Neuro: 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, log 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 Relevant findings are: Rate: Rate (enter#) (57) Rhythm: NSR [place]: Normal Intervals: Normal [place] QRS: Normal Ischemia: Normal ST segments, Q waves (V1, V2) - Labs Labs: Laboratory Tests 12/19/22 12/19/22 12/19/22 20:46 21:31 21:31 WBC 5.4 RBC 3.43 L Hgb 10.5 L Hct 32.5 L MCV 94.8 H MCH 30.6 MCHC 32.3 RDW 14.5 Plt Count 227 MPV 9.4 Neut # (Auto) 2.9 Lymph # (Auto) 1.5 [place] # (Auto) 0.5 Eos # (Auto) 0.5 Baso # (Auto) 0.0 Absolute Nucleated RBC 0.00 Nucleated RBC % 0.0 Sodium 136 Potassium 4.7 Chloride 102 Carbon Dioxide 26 Anion Gap 8.0 BUN 13 Creatinine 0.7 Estimated GFR (MDRD) 116 Glucose 98 Calcium 8.9 Total Bilirubin 0.5 AST 21 ALT 11 Alkaline Phosphatase 63 Troponin I High Sens Total Protein 6.8 Albumin 3.7 Globulin 3.1 Albumin/Globulin Ratio 1.2 Lipase 20 L Urine Opiates Screen NEGATIVE Ur Oxycodone Screen POSITIVE H Urine Methadone Screen NEGATIVE Ur Propoxyphene Screen NEGATIVE Ur Barbiturates Screen NEGATIVE Ur Tricyclics Screen NEGATIVE Ur Phencyclidine Scrn NEGATIVE Ur Amphetamine Screen NEGATIVE U Methamphetamines Scrn NEGATIVE U Benzodiazepines Scrn POSITIVE H Urine Cocaine Screen NEGATIVE U Cannabinoids Screen POSITIVE H Ethyl Alcohol < 5.0 12/19/22 21:31 WBC RBC Hgb Hct MCV MCH MCHC RDW Plt Count MPV Neut # (Auto) Lymph # (Auto) [place] # (Auto) Eos # (Auto) Baso # (Auto) Absolute Nucleated RBC Nucleated RBC % Sodium Potassium Chloride Carbon Dioxide Anion Gap BUN Creatinine Estimated GFR (MDRD) Glucose Calcium Total Bilirubin AST ALT Alkaline Phosphatase Troponin I High Sens < 2.3 L Total Protein Albumin Globulin Albumin/Globulin Ratio Lipase Urine Opiates Screen Ur Oxycodone Screen Urine Methadone Screen Ur Propoxyphene Screen Ur Barbiturates Screen Ur Tricyclics Screen Ur Phencyclidine Scrn Ur Amphetamine Screen U Methamphetamines Scrn U Benzodiazepines Scrn Urine Cocaine Screen U Cannabinoids Screen Ethyl Alcohol PD Medical Decision Making - ED course Complexity details: reviewed results, re-evaluated patient, considered differential, d/w patient ED course: Patient is very well known to this ED with over 100 [facility] ED visits over past 10 years. No concerning nor diagnostic findings on tonights tests. Although on arrival he was drowsy and slow to answer some questions, early in stay and without specific intervention, he became more awake and alert and remained AAOx3, conversant and appropriate and in NAD for remainder of his ED stay. Results reviewed with patient. The cause of his AMS is not apparent at this time; he has had similar previous visits (AMS that resolved over period of ED observation without apparent etiology). Return precautions discussed. Departure - Departure Disposition: 01 Home, Self Care Clinical Impression: Fall Qualifiers: Encounter type: initial encounter Qualified Code(s): W19.XXXA - Unspecified fall, initial encounter Condition: Good Instructions: ED Prevention Fall, ED Fall Dizziness Weakn Balance Comments: There were no concerning nor diagnostic findings on tonight's tests. As we discussed, your red blood cell level was slightly below the normal range, but not nearly enough to cause concern nor any symptoms. Please use your walker whenever ambulating to minimize the risk of future falls such as you had tonight. Discharge Date/Time: 12/19/22 23:49
[2022-12-19 21:50] LABS: MUDS CUTOFF CONCENTRATIONS CUTOFF CONC BELOW:
[2022-12-19 21:52] LABS: ALBUMIN 3.7 g/dL (3.2-5.5); ALBUMIN/GLOBULIN RATIO 1.2 (1.0-2.2); ALKALINE PHOSPHATASE 63 IU/L (42-121); ALT ALANINE AMINOTRANSFERASE 11 IU/L (10-60); AST ASPARTATE AMINOTRANSFERASE 21 IU/L (10-42); BILIRUBIN,TOTAL 0.5 mg/dL (0.2-1.0); BUN - BLOOD UREA NITROGEN 13 mg/dL (6-20); CALCIUM 8.9 mg/dL (8.5-10.3); CARBON DIOXIDE - CO2 26 mmol/L (21-32); CHLORIDE 102 mmol/L (101-111); CREATININE 0.7 mg/dL (0.6-1.2); ETOH - ETHANOL < 5.0 mg/dL; GFR - MDRD 116 (>89); GLUCOSE 98 mg/dL (70-100); LIPASE 20 U/L (22-51); POTASSIUM 4.7 mmol/L (3.5-5.0); SODIUM 136 mmol/L (135-145); TOTAL PROTEIN 6.8 g/dL (6.7-8.2)
[2022-12-19 22:03] LABS: COCAINE SCREEN URINE NEGATIVE (NEGATIVE); METHAMPHETAMINES SCREEN, URINE NEGATIVE (NEGATIVE); OPIATE SCREEN, URINE NEGATIVE (NEGATIVE); THC CANNABINOID SCREEN, URINE POSITIVE (NEGATIVE)
[2022-12-19 22:04] LABS: AMPHETAMINE SCREEN,URINE NEGATIVE (NEGATIVE); BARBITURATE SCREEN,UR NEGATIVE (NEGATIVE); BENZODIAZEPINES SCREEN, URINE POSITIVE (NEGATIVE); METHADONE SCREEN, URINE NEGATIVE (NEGATIVE); OXYCODONE SCREEN, URINE POSITIVE (NEGATIVE); PROPOXYPHENE SCREEN, URINE NEGATIVE (NEGATIVE); TRICYCLIC ANTIDEPRESSANT,URINE NEGATIVE (NEGATIVE)
[2022-12-19 22:44] VITALS: BP 150/80
== END 2022-12-19 23:49 | disposition home or self-care (01) ==
LOC: EDUNIT# → ED 18:42
DX: Z04.3 Encounter for examination and observation following other accident (principal); R41.82 Altered mental status, unspecified
CPT/HCPCS: 36415; 80053; 80306; 83690; 84484; 85025; 93005; 99282; 99284; G0480; 80320

== ENCOUNTER 2023-01-25 00:15 | Outpatient (CLI) | payer MEDICARE | END 2023-01-25 00:16 | disposition EMS.NT | LOC: EMS 00:15 | DX: R55 Syncope and collapse (principal) ==

== ENCOUNTER 2023-02-12 15:59 | Outpatient (CLI) | payer MEDICARE, MEDICAID | END 2023-02-12 23:59 | disposition critical access hospital (66) | LOC: EMS 15:59 | DX: M25.551 Pain in right hip (principal); W18.30XA Fall on same level, unspecified, initial encounter | CPT/HCPCS: A0425; A0427 ==

== ENCOUNTER 2023-02-12 16:20 | Day surgery (SDC) | payer MEDICARE, MEDICAID ==
[2023-02-12] MEDS ORDERED: HYDROmorphone 1 MG/ML CARPUJECT IVP STA (16:31)
--- NOTE | 2023-02-12 16:36 | ED Physician Documentation ---
History of Present Illness - Stated complaint Stated Complaint: GLF - Chief complaint Chief Complaint: General - History obtained from History obtained from: Patient, EMS - Additonal information Additional information: 57-year-old gentleman with history of alcoholism related mission, prior Guillain-Atwood syndrome hypertension, hyperlipidemia, sleep apnea with CPAP, history of GERD, pancreatitis, cirrhosis. He has had multiple right hip surgeries with a revision, his fourth most recently in December of this year. He has recurrent syncope with multiple negative work-ups and extensive work-ups and had a syncopal episode while walking yesterday. He is a little vague on details but it sounds like somehow he was able to get home but thinks he fell on his right hip and injured it. Today he cannot walk. PD PAST MEDICAL HISTORY - Past Medical History Cardiovascular: Hypertension, High cholesterol Respiratory: Sleep apnea, CPAP use Neuro: Headaches, Other Endocrine/Autoimmune: None, Other GI: GERD, Pancreatitis, Cirrhosis : Incontinence HEENT: None Psych: Depression, Anxiety, Panic attacks, Claustrophobia Musculoskeletal: Osteoarthritis Derm: None - Past Surgical History Past Surgical History: Yes Ortho: Hip replacement, Arthroscopic surgery HEENT: Tracheostomy - Present Medications Home Medications: Ambulatory Orders Medication Instructions Recorded Confirmed Furosemide [Lasix] 40 mg PO DAILY 08/19/19 03/31/21 Cholecalciferol [Vitamin D3] 1,000 units PO DAILY 01/17/20 03/31/21 Multivitamin W/Minerals [Theragran 1 each PO DAILY 01/17/20 03/31/21 M] Propranolol [Inderal] 30 mg PO BID 01/17/20 03/31/21 Pantoprazole Sodium 40 mg PO DAILY 06/14/20 03/31/21 Doxepin [SINEquan] 50 mg PO QPM 11/23/20 03/31/21 Gabapentin [Neurontin] 300 mg PO TID 11/23/20 03/31/21 Folic Acid/Vit B Complex and C 1 tab PO DAILY 11/24/20 03/31/21 [B-Complex with Vit C Tablet] LORazepam [Ativan] 1 mg PO BID #0 11/27/20 03/31/21 Ondansetron Odt [Zofran Odt] 4 mg TL Q6H PRN #20 tablet 12/09/20 03/31/21 Spironolactone [Aldactone] 100 mg PO DAILY 12/13/20 03/31/21 Thiamine [Vitamin B-1] 100 mg PO DAILY #30 tablet 12/15/20 03/31/21 hydrOXYzine pamoate [Vistaril] 50 mg Q6HR PRN 02/21/21 03/31/21 methocarbamoL [Methocarbamol] 2 tab Q6HR PRN 02/21/21 03/31/21 - Allergies Allergies/Adverse Reactions: Allergies Allergy/AdvReac Type Severity Reaction Status Date / Time lisinopril Allergy Mild Anaphylaxis Verified 02/12/23 16:32 - Social History Does the pt smoke?: No Smoking Status: Never smoker Does the pt drink ETOH?: Yes Does the pt have substance abuse?: No - Immunizations Immunizations are current?: Yes Immunizations: Other immun not current - POLST Patient has POLST: No POLST Status: Full Code (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, 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.) PD ED PE NORMAL - Vitals Vital signs reviewed: Yes - General General: 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, No acute distress - HEENT HEENT: PERRL, EOMI - Neck Neck: Supple, no meningeal sign, No bony TTP - Cardiac Cardiac: RRR, No murmur - Respiratory Respiratory: No respiratory distress, Clear bilaterally - Abdomen Abdomen: Normal bowel sounds, Soft, Non tender - Extremities Extremities: Other (Right hip is shortened and externally rotated) - Neuro Neuro: 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, Normal speech Results - Vitals Vitals: Vital Signs - 24 hr 02/12/23 02/12/23 02/12/23 16:26 17:00 17:23 Temperature 36.7 C 36.6 C Heart Rate 95 87 76 Respiratory 16 17 18 Rate Blood Pressure 126/87 H 125/97 H 120/82 H O2 Saturation 100 99 100 If not protocol : Oxygen Flow, liters/minute 02/12/23 02/12/23 02/12/23 17:28 17:30 17:33 Temperature Heart Rate 85 86 79 Respiratory 16 17 16 Rate Blood Pressure 128/104 H 117/84 H 123/85 H O2 Saturation 98 93 98 If not protocol 4 4 : Oxygen Flow, liters/minute 02/12/23 02/12/23 17:43 17:50 Temperature Heart Rate 80 90 Respiratory 14 16 Rate Blood Pressure 133/84 H O2 Saturation 100 If not protocol 2 : Oxygen Flow, liters/minute Oxygen O2 Source Nasal cannula - Labs Labs: Laboratory Tests 02/12/23 02/12/23 02/12/23 16:39 16:39 16:39 WBC 5.9 RBC 3.53 L Hgb 10.5 L Hct 30.9 L MCV 87.5 MCH 29.7 MCHC 34.0 RDW 16.0 H Plt Count 247 MPV 9.1 Neut # (Auto) 3.8 Lymph # (Auto) 1.2 L [place] # (Auto) 0.7 Eos # (Auto) 0.2 Baso # (Auto) 0.0 Absolute Nucleated RBC 0.00 Nucleated RBC % 0.0 PT 12.0 INR 1.1 Sodium 136 Potassium 3.7 Chloride 102 Carbon Dioxide 26 Anion Gap 8.0 BUN 14 Creatinine 0.8 Estimated GFR (MDRD) 99 Glucose 79 Calcium 9.5 Magnesium 1.4 L Total Bilirubin 0.8 AST 43 H ALT 12 Alkaline Phosphatase 88 Total Protein 6.9 Albumin 4.3 Globulin 2.6 Albumin/Globulin Ratio 1.7 Ethyl Alcohol < 10.0 Procedures - Reduction Body part reduced: Right, Hip, prosthetic Reduction aftercare: Unable to reduce - Procedural sedation Sedation prep: Informed consent, Time out completed, Last meal (12p), PE performed, ASA 2 - mild disease Sedation Medications: propofol (100, then 60, then 40, then 80 mg totaling 280 mg) Mallampati classification: I Patient status during sedation: Unresponsive Sedation recovery: Recovered uneventfully Time in sedation (Minutes): 12 PD Medical Decision Making - ED course ED course: 57-year-old gentleman with history of Guillain-Atwood multiple comorbidities presents with a deformity of the right prosthetic hip and x-ray showing a dislocation. Prior to sedating him I did discuss the case by phone with our international account executive given the history of gone bradycardia and he did not feel that propofol sedation offered any extra risk and the patient consented. While sedated I tried multiple maneuvers to relocate his hip including simple traction, simple traction with external and internal rotation, traction with significant valgus, traction with significant varus, 90 degrees with a Captain Da technique, in neutral, varus and valgus positions, then we rolled him on his side and extended the hip and tried traction with neutral, varus, and valgus positions, all without success. At that point I discussed the case by phone with our on-call orthopedist who will come in and see the patient Departure - Departure Disposition: ED Transfer to [facility] Clinical Impression: Dislocation of hip joint prosthesis Qualifiers: Encounter type: initial encounter Qualified Code(s): T84.029A - Dislocation of unspecified internal joint prosthesis, initial encounter Condition: Stable Forms: PCP List
[2023-02-12 16:45] LABS: BASOPHILS % (AUTO) 0.5 %; EOSINOPHILS # (AUTO) 0.2 10^3/uL (0.0-0.7); EOSINOPHILS % (AUTO) 3.2 %; HCT - HEMATOCRIT 30.9 % (42.0-52.0); HGB - HEMOGLOBIN 10.5 g/dL (14.0-18.0); LYMPHOCYTES # (AUTO) 1.2 10^3/uL (1.5-3.5); LYMPHOCYTES % (AUTO) 20.3 %; MEAN CORPUSCULAR HEMOGLOBIN 29.7 pg (27.0-31.0); MEAN CORPUSCULAR VOLUME 87.5 fL (80.0-94.0); MEAN PLATELET VOLUME 9.1 fL (7.4-11.4); MONOCYTES # (AUTO) 0.7 10^3/uL (0.0-1.0); MONOCYTES % (AUTO) 12.3 %; NEUTROPHILS # (AUTO) 3.8 10^3/uL (1.5-6.6); NEUTROPHILS % (AUTO) 63.5 %; PLT - PLATELET COUNT 247 10^3/uL (130-450); RED BLOOD COUNT 3.53 10^6/uL (4.70-6.10); WHITE BLOOD COUNT 5.9 x10^3/uL (4.8-10.8)
[2023-02-12 16:55] LABS: INR 1.1 (0.8-1.2)
[2023-02-12 16:57] LABS: ALBUMIN 4.3 g/dL (3.2-5.5); ALBUMIN/GLOBULIN RATIO 1.7 (1.0-2.2); ALKALINE PHOSPHATASE 88 IU/L (42-121); ALT ALANINE AMINOTRANSFERASE 12 IU/L (10-60); AST ASPARTATE AMINOTRANSFERASE 43 IU/L (10-42); BILIRUBIN,TOTAL 0.8 mg/dL (0.2-1.0); BUN - BLOOD UREA NITROGEN 14 mg/dL (6-20); CALCIUM 9.5 mg/dL (8.5-10.3); CARBON DIOXIDE - CO2 26 mmol/L (21-32); CHLORIDE 102 mmol/L (101-111); CREATININE 0.8 mg/dL (0.6-1.3); ETOH - ETHANOL < 10.0 mg/dL; GFR - MDRD 99 (>89); GLUCOSE 79 mg/dL (74-104); MAGNESIUM 1.4 mg/dL (1.7-2.3); POTASSIUM 3.7 mmol/L (3.5-4.5); SODIUM 136 mmol/L (135-145); TOTAL PROTEIN 6.9 g/dL (6.4-8.9)
[2023-02-12] MEDS ORDERED: PROPOFOL 200 MG/20 ML VIAL IVP STA ×2 (17:08→17:34)
--- NOTE | 2023-02-12 17:31 | XRAY Report ---
PROCEDURE: Hip w/Pelvis 2-3V RT INDICATIONS: hip inj TECHNIQUE: AP pelvis with lateral view(s) of the right hip(s). COMPARISON: None. FINDINGS: Bones: There is a superior, lateral dislocation of the femoral component of the right hip arthroplas ty. Probable dehiscence with the bone stalk, as there is a disrupted cerclage wire. Soft tissues: No suspicious soft tissue calcifications or masses. IMPRESSION: Superior, lateral dislocation of the right hip prosthesis relative to the acetabulum. Probable bone dehiscence with the bone stalk of the femur. Reviewed by: Joseph Corado on 02/12/2023 5:30 PM PDT Approved by: Joseph Corado on 02/12/2023 5:30 PM PDT Station ID: [id number]
[2023-02-12] MEDS ORDERED: PROPOFOL 200 MG/20 ML VIAL IVP ONE (17:34)
[2023-02-12] MEDS ORDERED: fentaNYL 100 MCG/2 ML VIAL IVP PRN (18:18)
[2023-02-12] MEDS ORDERED: NALOXONE 0.4 MG/ML VIAL IVP PRN (18:18)
[2023-02-12] MEDS ORDERED: HYDROmorphone 0.5 MG/0.5 ML SYRINGE IVP PRN (18:18)
[2023-02-12] MEDS ORDERED: ePHEDrine 50 MG/ML VIAL IVP PRN (18:18)
[2023-02-12] MEDS ORDERED: ONDANSETRON 4 MG/2 ML VIAL IVP PRN (18:18)
[2023-02-12] MEDS ORDERED: ATROPINE ABBOJECT 1 MG/10 ML SYRINGE IVP PRN (18:18)
--- NOTE | 2023-02-12 18:18 | ANESTHESIA ---
Pre-Anesthesia VS, & Labs - Diagnosis R hip dislocated - Procedure r hip closed reduction Vital Signs: Temp Pulse Resp BP Pulse Ox O2 Flow Rate 36.6 C 79 14 133/84 H 100 2 02/12/23 17:23 02/12/23 17:55 02/12/23 17:55 02/12/23 17:55 02/12/23 17:55 02/12/23 17:43 Height: 6 ft 7 in Weight (kg): 84 kg Body Mass Index: 20.8 BMI Classification: Normal - NPO >8 hours - Lab Results Current Lab Results: Laboratory Tests 02/12/23 16:39: Sodium 136, Potassium 3.7, Chloride 102, Carbon Dioxide 26, Anion Gap 8.0, BUN 14, Creatinine 0.8, Estimated GFR (MDRD) 99, Glucose 79, Calcium 9.5, Magnesium 1.4 L, Total Bilirubin 0.8, AST 43 H, ALT 12, Alkaline Phosphatase 88, Total Protein 6.9, Albumin 4.3, Globulin 2.6, Albumin/Globulin Ratio 1.7, Ethyl Alcohol < 10.0 02/12/23 16:39: PT 12.0, INR 1.1 02/12/23 16:39: WBC 5.9, RBC 3.53 L, Hgb 10.5 L, Hct 30.9 L, MCV 87.5, MCH 29.7, MCHC 34.0, RDW 16.0 H, Plt Count 247, MPV 9.1, Neut # (Auto) 3.8, Lymph # (Auto) 1.2 L, [place] # (Auto) 0.7, Eos # (Auto) 0.2, Baso # (Auto) 0.0, Absolute Nucleated RBC 0.00, Nucleated RBC % 0.0 Lab results reviewed: No Fish Bones: 02/12/23 16:39 02/12/23 16:39 Home Medications and Allergies Furosemide [Lasix] 40 mg PO DAILY 08/19/19 Cholecalciferol [Vitamin D3] 1,000 units PO DAILY 01/17/20 Multivitamin W/Minerals [Theragran M] 1 each PO DAILY 01/17/20 Propranolol [Inderal] 30 mg PO BID 01/17/20 Pantoprazole Sodium 40 mg PO DAILY 06/14/20 Doxepin [SINEquan] 50 mg PO QPM 11/23/20 Gabapentin [Neurontin] 300 mg PO TID 11/23/20 Folic Acid/Vit B Complex and C [B-Complex with Vit C Tablet] 1 tab PO DAILY 11/24/20 Spironolactone [Aldactone] 100 mg PO DAILY 12/13/20 hydrOXYzine pamoate [Vistaril] 50 mg Q6HR PRN 02/21/21 methocarbamoL [Methocarbamol] 2 tab Q6HR PRN 02/21/21 Allergies/Adverse Reactions: Allergies Allergy/AdvReac Type Severity Reaction Status Date / Time lisinopril Allergy Mild Anaphylaxis Verified 02/12/23 16:32 Anes History & Medical History - Anesthetic History Anesthesia Complications: reports: No previous complications Family history of Anesthesia Complications: Denies - Medical History Cardiovascular: reports: Hypertension, High cholesterol Pulmonary: reports: Sleep apnea, CPAP use Gastrointestinal: reports: GERD, Pancreatitis, Cirrhosis Urinary: reports: Incontinence Neuro: reports: Headaches, Other (hx of Gb) Musculoskeletal: reports: Osteoarthritis Endocrine/Autoimmune: reports: None, Other Blood Disorders: reports: None Skin: reports: None Smoking Status: Never smoker - Surgical History Eyes Ears Nose Throat (EENT): reports: Tracheostomy Orthopedic: reports: Hip replacement, Arthroscopic surgery Exam General: Alert, Oriented x3, Cooperative Dental: WNL Mouth Openin Fingerbreadth Neck Mobility: Normal Mallampati classification: II Thyromental Distance: 4-6 cm Respiratory: Lungs clear Cardiovascular: Regular rate Plan Anesthesia Type: General Consent for Procedure(s) Verified and Reviewed: Yes Code Status: Attempt Resuscitation ASA classification: 2-Mild systemic disease Is this case an emergency?: No
[2023-02-12] MEDS ORDERED: SUGAMMADEX 200 MG/2 ML VIAL IVP ONE ×2 (18:34→20:08)
[2023-02-12] MEDS ORDERED: LACTATED RINGERS 1,000 ML IV SCH (19:00)
--- NOTE | 2023-02-12 19:17 | XRAY Report ---
PROCEDURE: Hip w/Pelvis 1V RT INDICATIONS: Postreduction attempt TECHNIQUE: AP pelvis with lateral view(s) of the right hip(s). COMPARISON: None. FINDINGS: Bones: Unchanged dislocation of the right hip arthroplasty. Soft tissues: No suspicious soft tissue calcifications or masses. IMPRESSION: Unchanged dislocation. Reviewed by: Joseph Corado on 02/12/2023 7:15 PM PDT Approved by: Joseph Corado on 02/12/2023 7:15 PM PDT Station ID: [id number]
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
[2023-02-12] MEDS ORDERED: oxyCODONE 5 MG TABLET PO PRN (19:46)
[2023-02-12] MEDS ORDERED: fentaNYL 100 MCG/2 ML VIAL ONE (19:46)
[2023-02-12] MEDS ORDERED: LACTATED RINGERS 1,000 ML IV ONE (20:12)
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
--- NOTE | 2023-02-12 20:40 | OPERATIVE REPORT ---
Operative Report - General Procedure Date: 02/12/23 Planned Procedure: closed reduction right prosthetic hip replacement Pre-Op Diagnosis: right hip prosthetic dislocation Procedure Performed: closed reduction of right hip arthroplasty. Fluoroscopic examination. Post Op Diagnosis: same - Procedure Note Primary Surgeon: Bandar Klein Anesthesia Technique: General mask Findings: right hip was easily reduced (minimal force applied) with flexion to 70 degrees, internal rotation and traction. AP and 60 degree oblique fluoro views confirmed central position of FH in the cup and successful reduction. Neurovascularly intact post procedure. comfortable upon reduction. - Other Other Information/Narrative: right hip was easily reduced (minimal force applied) with flexion to 70 degrees, internal rotation and traction. AP and 60 degree oblique fluoro views confirmed central position of FH in the cup and successful reduction. Neurovascularly intact post procedure. comfortable upon reduction.
[2023-02-12] MEDS: oxyCODONE 5 MG TABLET PO PRN (21:18)
[2023-02-13] MEDS: oxyCODONE 5 MG TABLET PO PRN ×2 (03:59→10:49)
[2023-02-13 08:35] VITALS: BP 121/83; O2SAT 95
--- NOTE | 2023-02-13 09:13 | XRAY Report ---
PROCEDURE: OR C-Arm Procedure INDICATIONS: CLOSED REDUCTION INTERNAL FIXATION, RIGHT HIP. FLUORO TIME: 0.1 TECHNIQUE: 2 view right hip. COMPARISON: X-ray pelvis and right hip, 02/12/2023. FINDINGS: Right hip arthroplasty. Right hip prosthesis dislocation was reduced. IMPRESSION: Right hip prosthesis dislocation reduced. Reviewed by: Yesi Saenz MD on 02/13/2023 9:11 AM PDT Approved by: Yesi Saenz MD on 02/13/2023 9:11 AM PDT Station ID: [id number]
== END 2023-02-13 12:00 | disposition home or self-care (01) ==
LOC: EDUNIT# → ED 16:20 → SDS 19:50 → MS2 20:03 → SDS 02-13 12:00
PROVIDERS: ATTEND Orthopaedic Surgery Sports Medicine
DX: T84.020A Dislocation of internal right hip prosthesis, initial encounter (principal); W19.XXXA Unspecified fall, initial encounter; I10 Essential (primary) hypertension; G47.30 Sleep apnea, unspecified
CPT/HCPCS: 27266; 36415; 73501; 73502; 80053; 83735; 85025; 85610; A9270; G0480; J1170; J7120; 27265; 80320; 94770; 99152; 99284

== ENCOUNTER 2023-03-13 14:12 | Emergency (ER) | payer MEDICARE, MEDICAID ==
[2023-03-13 14:19] VITALS: BP 160/90; O2SAT 98
--- NOTE | 2023-03-13 15:19 | XRAY Report ---
PROCEDURE: Hip w/Pelvis 2-3V RT INDICATIONS: hip pain TECHNIQUE: AP pelvis with lateral view(s) of the right hip(s). COMPARISON: X-ray pelvis 02/12/2023 FINDINGS: Bones: Right hip arthroplasty is present. Cerclage wires are not fully visualized. However, fracture within the obscured portions cannot be definitively excluded. 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 There r emains lucency surrounding the femoral prosthetic component. Soft tissues: No suspicious soft tissue calcifications or masses. IMPRESSION: Right hip arthroplasty without dislocation. Cerclage wires are not fully visualized and fracture cannot be excluded given previous dislocation. Sinuses and osseous nonunion. Lucency is present surrounding the proximal portion of the femoral prosthesis secondary to osseous no nunion. Loosening cannot be excluded. Reviewed by: Maria T Alcala MD on 03/13/2023 3:18 PM PDT Approved by: Maria T Alcala MD on 03/13/2023 3:18 PM PDT Station ID: [id number]
[2023-03-13] MEDS ORDERED: oxyCODONE 5 MG TABLET PO STA (15:38)
--- NOTE | 2023-03-13 15:49 | ED Physician Documentation ---
History of Present Illness - Stated complaint Stated Complaint: RT HIP PX - Chief complaint Chief Complaint: Ext Problem - Additonal information Additional information: 58-year-old male presents emergency department for evaluation of acute on chronic right hip pain. Does have a history of previous fracture in this joint with multiple revisions of his prosthesis including recurrent dislocation. This morning he was putting on new shoes when he felt the hip pop out of joint. He was able to maneuver himself at home and get the hip back into joint but is now having increased pain. He is followed by Dr. Rambo Gregory orthopedics at [facility]. Review of Systems Constitutional: reports: Reviewed and negative Musculoskeletal: reports: Joint pain Neurologic: reports: Reviewed and negative Psychiatric: reports: Reviewed and negative PD PAST MEDICAL HISTORY - Past Medical History Cardiovascular: Hypertension, High cholesterol Respiratory: Sleep apnea, CPAP use Neuro: Headaches, Other Endocrine/Autoimmune: None, Other GI: GERD, Pancreatitis, Cirrhosis : Incontinence HEENT: None Psych: Depression, Anxiety, Panic attacks, Claustrophobia Musculoskeletal: Osteoarthritis Derm: None - Past Surgical History Past Surgical History: Yes Ortho: Hip replacement, Arthroscopic surgery HEENT: Tracheostomy - Present Medications Home Medications: Ambulatory Orders Medication Instructions Recorded Confirmed Cholecalciferol [Vitamin D3] 1,000 units PO DAILY 01/17/20 02/12/23 Multivitamin W/Minerals [Theragran 1 each PO DAILY 01/17/20 02/12/23 M] Pantoprazole Sodium 40 mg PO DAILY 06/14/20 02/12/23 Gabapentin [Neurontin] 800 mg PO TID 11/23/20 02/12/23 Folic Acid/Vit B Complex and C 1 tab PO DAILY 11/24/20 02/12/23 [B-Complex with Vit C Tablet] Thiamine [Vitamin B-1] 100 mg PO DAILY #30 tablet 12/15/20 02/12/23 Lipase/Protease/Amylase [Nathalie Ohara 1 each PO TIDWM 02/12/23 02/12/23 12,000 Units Capsule] Trazodone HCl 100 - 200 mg PO HS PRN 02/12/23 02/12/23 diphenhydrAMINE HCL [Sleep Aid] 25 mg PO HS PRN 02/12/23 02/12/23 oxyCODONE [Roxicodone] 5 mg PO BID #20 tablet 03/13/23 - Allergies Allergies/Adverse Reactions: Allergies Allergy/AdvReac Type Severity Reaction Status Date / Time lisinopril Allergy Mild Anaphylaxis Verified 03/13/23 14:15 - Social History Does the pt smoke?: No Smoking Status: Never smoker Does the pt drink ETOH?: Yes Does the pt have substance abuse?: No - Immunizations Immunizations are current?: Yes Immunizations: Other immun not current - POLST Patient has POLST: No POLST Status: Full Code (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 and to PERSONAL COUNSELOR, 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.) PD ED PE EXPANDED - General General: Alert, No acute distress - Extremities Extremities: Right hip (ambulatory with cane. Mild tenderness lateral edges. no swellign ecchymosis. 2+ DP pulse. reduced ROM with pain) Results - Vitals Vitals: Vital Signs - 24 hr 03/13/23 14:15 Temperature 36.7 C Heart Rate 67 Respiratory 16 Rate Blood Pressure 160/90 H O2 Saturation 98 Oxygen O2 Source Room air - Rads (name of study) right hip Relevant Findings:: Final report received (Right hip arthroplasty without dislocation. Cerclage wires not fully visualized and fracture cannot be excluded given previous dislocation. Osseous nonunion. Loosening of the prosthesis cannot be excluded.) PD Medical Decision Making - ED course Complexity details: reviewed results, re-evaluated patient, d/w patient ED course: 58-year-old male presents emergency department for evaluation of acute on chronic right hip pain. Has a history of previous fracture as well as prosthesis now in this joint. History of recurrent hip dislocations most recently in February. Followed at [facility] orthopedics. He was putting on his shoes this morning and dislocated the hip but was able to place it back in at home. Now with worsening pain. An x-ray shows no current hip dislocation. Though there is possible concern for loosening of the prosthesis. Patient is followed closely by [facility] and is advised to follow-up with them she likely benefit from repeat evaluation with either MRI or CT scan. He remains ambulatory using a cane. Clinically history is not consistent with acute dislocation today or any concerns of infection. Given the worsening pain limited amount of oxycodone sent to the pharmacy. The usual emergent return precautions for concerns worsening symptoms was discussed. Departure - Departure Disposition: 01 Home, Self Care Clinical Impression: Right hip pain Condition: Stable Record reviewed to determine appropriate education?: Yes Prescriptions: oxyCODONE [Roxicodone] 5 mg PO BID #20 tablet Comments: Stew it sounds like you dislocated your hip this morning at home and were able to get it back in joint. The x-ray shows that your hip is in joint. However the stillaguamish bone may be acutely inflamed. Have sent a limited prescription for oxycodone to the pharmacy for you. It is important that you follow very closely with Dr. Gregory for longer-term evaluation and management of this hip pain. I am prescribing a short course of narcotic pain medication for you. These are potentially dangerous and addictive medications that should be used carefully. These medications may constipate you. Take an raor-iyk-bephqhe stool softener (docusate) twice daily with plenty of water while taking these medications. If you go 24 hours without a bowel movement, take [id number] miralax, per package instructions. Do not drink or drive while taking these medications. If you received narcotic or sedating medications while in the emergency department, do not drive for 24 hours. Store this medication in a safe, secure place and out of reach of children. It is a violation of federal law to give or sell this medication to another person or to use in a manner other than prescribed. The ED will not refill narcotic prescriptions, including prescriptions lost or stolen. To dispose of unwanted medications: 1. [facility] at [address] [place] [address] in [place] has a medication drop box. They accept prescription medications (in p ill form) Thursday through Thursday 9:00 a.m. to 5:00 p.m. 2. The [facility] [employer] accepts prescription medications (in pill form only) for disposal year round. Call for more information. 3. Contact the [facility] for the next [facility] sponsored prescription drug collection event. , [phone], or [phone]; Note that many narcotic pain relievers also contain Tylenol/acetaminophen. Please ensure that your total dose of acetaminophen from all sources does not exceed 3 g (3000 mg) per day. Forms: PCP List
== END 2023-03-13 16:12 | disposition home or self-care (01) ==
LOC: ED 14:12
DX: M25.551 Pain in right hip (principal); G89.29 Other chronic pain
CPT/HCPCS: 73502; 99283; 99284; A9270

== ENCOUNTER 2023-03-21 11:48 | Outpatient (CLI) | payer MEDICARE, MEDICAID | END 2023-03-21 11:49 | disposition critical access hospital (66) | LOC: EMS 11:48 | DX: M24.451 Recurrent dislocation, right hip (principal) | CPT/HCPCS: A0425; A0429 ==

== ENCOUNTER 2023-03-21 12:06 | Emergency (ER) | payer MEDICARE, MEDICAID ==
--- NOTE | 2023-03-21 12:09 | ED Physician Documentation ---
PD HPI LOWER EXT INJURY - Stated complaint Stated Complaint: R HIP DISLOCATION - History obtained from History obtained from: Patient, EMS - History of Present Illness PD HPI LOW EXT INJURY LOCATION: Right, Hip Type of injury: Twist (he was just standing and pivoted and felt right hip pop with pain and unable to move hip without signifcant pain. Similar to prior hip dislocations. EMS called and brought him to ER. Denies fall/other injury.). No: Fall Where injury occurred: Home Timing - onset: How many hours ago (1), Today Timing - duration: Hours (1) Timing - details: Abrupt onset, Still present Worsened by: Moving, Palpating Associated symptoms: No: Weakness, Numbness Contributing factors: Prior ortho surgery (had hip replacement due to fracture, then revised to full hip replacement. Dislocations few times and had periprosthetic fracture, that was replaced by [facility]. Has had few dislocations since that in November 2022. Has appt with [facility] about this in 10 days(?).) Similar symptoms before: Diagnosis (hip dislocation spontaneously (with twist or getting up).) Review of Systems Constitutional: reports: Other (last meal was banana about 6 am with coffee.). denies: Fever, Chills Throat: denies: Sore throat Respiratory: denies: Cough Skin: denies: Abrasion (s), Laceration (s) Musculoskeletal: reports: Back pain (chronic) Neurologic: denies: Focal weakness, Numbness PD PAST MEDICAL HISTORY - Past Medical History Cardiovascular: Hypertension, High cholesterol Respiratory: Sleep apnea, CPAP use Neuro: Headaches, Other Endocrine/Autoimmune: None, Other GI: GERD, Pancreatitis, Cirrhosis : Incontinence HEENT: None Psych: Depression, Anxiety, Panic attacks, Claustrophobia Musculoskeletal: Osteoarthritis Derm: None - Past Surgical History Past Surgical History: Yes Ortho: Hip replacement, Arthroscopic surgery HEENT: Tracheostomy - Present Medications Home Medications: Ambulatory Orders Medication Instructions Recorded Confirmed Cholecalciferol [Vitamin D3] 1,000 units PO DAILY 01/17/20 02/12/23 Multivitamin W/Minerals [Theragran 1 each PO DAILY 01/17/20 02/12/23 M] Pantoprazole Sodium 40 mg PO DAILY 06/14/20 02/12/23 Gabapentin [Neurontin] 800 mg PO TID 11/23/20 02/12/23 Folic Acid/Vit B Complex and C 1 tab PO DAILY 11/24/20 02/12/23 [B-Complex with Vit C Tablet] Thiamine [Vitamin B-1] 100 mg PO DAILY #30 tablet 12/15/20 02/12/23 Lipase/Protease/Amylase [Creon Dr 1 each PO TIDWM 02/12/23 02/12/23 12,000 Units Capsule] Trazodone HCl 100 - 200 mg PO HS PRN 02/12/23 02/12/23 diphenhydrAMINE HCL [Sleep Aid] 25 mg PO HS PRN 02/12/23 02/12/23 oxyCODONE [Roxicodone] 5 mg PO BID #20 tablet 03/13/23 HYDROmorphone [Dilaudid] 2 mg PO Q6H PRN #15 tablet 03/21/23 oxyCODONE [Roxicodone] 5 mg PO Q6H PRN #15 tablet 03/21/23 - Allergies Allergies/Adverse Reactions: Allergies Allergy/AdvReac Type Severity Reaction Status Date / Time lisinopril Allergy Mild Anaphylaxis Verified 03/13/23 14:15 - Social History Does the pt smoke?: No Smoking Status: Never smoker Does the pt drink ETOH?: Yes Does the pt have substance abuse?: No - Immunizations Immunizations are current?: Yes Immunizations: Other immun not current - POLST Patient has POLST: No POLST Status: Full Code (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 and to SOCIAL WORK 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 ) - Neck Neck: Supple, no meningeal sign, No bony TTP - Cardiac Cardiac: RRR, No murmur - Respiratory Respiratory: Clear bilaterally - Abdomen Abdomen: Soft, Non tender - Derm Derm: Normal color, Warm and dry - Extremities Extremities: Other (right hip painful with slight passive ROM. Right leg shortened about 2 inches. Normal pulses, color and cap refill distally. ) - Neuro Neuro: No motor deficit, No sensory deficit Results - Vitals Vitals: Vital Signs - 24 hr 03/21/23 03/21/23 03/21/23 12:10 14:10 14:15 Temperature 36.8 C 36.9 C Heart Rate 80 61 64 Respiratory 18 20 12 Rate Blood Pressure 115/83 H 117/84 H 105/75 O2 Saturation 100 100 97 If not protocol 4 : Oxygen Flow, liters/minute 03/21/23 03/21/23 03/21/23 14:27 14:35 15:04 Temperature 36.8 C Heart Rate 80 59 L 64 Respiratory 14 18 20 Rate Blood Pressure 107/77 112/85 H O2 Saturation 100 98 If not protocol : Oxygen Flow, liters/minute 03/21/23 03/21/23 03/21/23 16:15 16:21 16:34 Temperature 36.9 C Heart Rate 59 L 63 78 Respiratory 20 12 12 Rate Blood Pressure 106/67 102/77 O2 Saturation 100 100 If not protocol 4 : Oxygen Flow, liters/minute 03/21/23 17:32 Temperature 36.8 C Heart Rate 57 L Respiratory 20 Rate Blood Pressure 128/93 H O2 Saturation 99 If not protocol : Oxygen Flow, liters/minute Oxygen O2 Source Nasal cannula - Rads (name of study) right hip Relevant Findings:: Prelim report reviewed (dislocation without fractures.), EMP independent interpretation of test post reduction Relevant Findings:: Prelim report reviewed, EMP independent interpretation of test (reduced without fracture. ) hip Relevant Findings:: Prelim report reviewed (recurrent dislocaiton), EMP independent interpretation of test hip right Relevant Findings:: Prelim report reviewed, EMP independent interpretation of test (reduction) Procedures - Reduction Body part reduced: Right (the patient had recurrent dislocation in ED as started to get wheeled out of room at discharge. Precedure above repeated without problems with reduction again. 100 mg profolofol on second reduction.), Hip, prosthetic Fracture or dislocation: Dislocation Anesthesia: Dilaudid Hip reduction technique: Allis - flex/pull/rotate Reduction aftercare: NV intact, Xray confirms reduction, Alignment improved, Patient tolerated well - Procedural sedation Sedation prep: Informed consent, Time out completed, Last meal (6 am banana and coffee), PE performed, ASA 2 - mild disease, IV O2 monitor, ET CO2 monitor, RT present Sedation Medications: propofol Mallampati classification: I Patient status during sedation: Alert, Unresponsive, Vitals remained stable, Maintained airway, Recovered uneventfully Sedation recovery: Recovered uneventfully Time in sedation (Minutes): 15 (120 mg propofol on initial reduction) PD Medical Decision Making - ED course Complexity details: reviewed results, considered differential, d/w patient ED course: Recurrent hip dislocations. X-ray shows a dislocation. He is given IV fluids and pain medication and preparation for sedation and reduction. He has had this done before so he does not have much extra questions. I did explain the procedure completely. The patient underwent sedation and reduction of the hip with a bit of difficulty maneuvering and back into position. However it did reduce and he was doing well. Recovered from the sedation without any problems. He was being prepared for discharge. Upon getting into the wheelchair and starting to be wheeled out to the front for discharge, his hip suddenly started hurting again and that he states it felt like it dislocated. He was helped back onto the cart and x-ray performed and showed a dislocation again. We will reestablish IV and monitoring and redo the sedation and reduction. Consideration then would be a knee brace to reduce angulation at the hip. He does have an abduction pillow at home. Hip reduced again without complications. Gave pt knee immobilizer. He was discharged without problems. Departure - Departure Disposition: Home, Self Care Clinical Impression: Recurrent dislocation, right hip Condition: Stable Record reviewed to determine appropriate education?: Yes Follow-Up: Nancie Gloria PA-C [Primary Care Provider] - Prescriptions: HYDROmorphone [Dilaudid] 2 mg PO Q6H PRN #15 tablet PRN Reason: Pain oxyCODONE [Roxicodone] 5 mg PO Q6H PRN #15 tablet PRN Reason: Pain Comments: We were able to get your hip back in location. It will be sore of course from being out and stretching of the muscles. He is basic medications of anti-inflammatory such as ibuprofen or naproxen 2-3 times daily. Add Tylenol every 4-6 hours as needed for pain. I did prescribe some oxycodone to use every 6 hours if needed for worse pain intended in the short-term. Contact your orthopedist on Thursday let them know it dislocated again. I understand you have a follow-up appointment coming up with them to discuss this. Continue with the similar precautions regarding the hip provided by your orthopedist. I sent your prescription to the [facility] pharmacy, your preferred location. I am prescribing a short course of narcotic pain medication for you. These are potentially dangerous and addictive medications that should be used carefully. These medications may constipate you. Take an [id number]-[id number] stool softener such as docusate twice daily with plenty of water while taking these medications. If you go 24 hours without a bowel movement, take enrm-oij-zyzbglj MiraLAX, per package instructions. Do not drink or drive while taking these medications. If you received narcotic or sedating medications while in the emergency department do not drive for 24 hours. Store this medication in a safe, secure place and out of reach of children. It is a violation of federal law to give or sell this medication to another person or to use in a manner other than prescribed. The ED will not refill narcotic prescriptions, including prescriptions lost or stolen. You can dispose of unwanted medications at the [facility]'s office or at several pharmacies such as [facility]. Forms: PCP List Discharge Date/Time: 03/21/23 17:33
[2023-03-21] MEDS ORDERED: HYDROmorphone 1 MG/ML CARPUJECT IVP STA ×2 (12:35→15:12)
[2023-03-21] MEDS ORDERED: KETOROLAC 15 MG/ML VIAL IVP STA (12:35)
[2023-03-21] MEDS ORDERED: SODIUM CHLORIDE 0.9% 1,000 ML IV STA (12:35)
--- NOTE | 2023-03-21 12:54 | XRAY Report ---
PROCEDURE: Hip w/Pelvis 2-3V RT INDICATIONS: possible hip dislocation TECHNIQUE: AP pelvis with lateral view(s) of the right hip(s). COMPARISON: 03/13/2023, 02/12/2023. FINDINGS: Bones: There is dislocation of the right hip prosthesis. No easton fracture can be seen. There is extensive heterotopic bone. Soft tissues: No suspicious soft tissue calcifications or masses. IMPRESSION: Right prosthetic hip dislocation. The appearance is similar to 02/12/2023. Reviewed by: Billy Antunez MD on 03/21/2023 11:53 AM RACHID Approved by: Billy Antunez MD on 03/21/2023 11:53 AM RACHID Station ID: [id number]
[2023-03-21] MEDS ORDERED: PROPOFOL 200 MG/20 ML VIAL IVP STA ×2 (13:31→15:12)
--- NOTE | 2023-03-21 14:41 | XRAY Report ---
PROCEDURE: Hip w/Pelvis 2-3V RT INDICATIONS: post reduction attempt TECHNIQUE: AP pelvis with lateral view(s) of the right hip(s). COMPARISON: 03/21/2023, 03/13/2023 FINDINGS: Bones: The right prosthetic hip now is relocated. Extensive heterotopic ossification is seen. No acute fractures. No suspicious bony lesions. Soft tissues: No suspicious soft tissue calcifications or masses. IMPRESSION: Right prosthetic hip relocation. Reviewed by: Billy Antunez MD on 03/21/2023 1:39 PM AKDT Approved by: Billy Antunez MD on 03/21/2023 1:39 PM AKDT Station ID: [id number]
--- NOTE | 2023-03-21 15:31 | XRAY Report ---
PROCEDURE: Hip w/Pelvis 2-3V RT INDICATIONS: possible recurrent disloc TECHNIQUE: AP pelvis with lateral view(s) of the right hip(s). COMPARISON: Earlier on 03/21/2023, 03/13/2023 FINDINGS: Bones: There is a recurrent dislocation of the right prosthetic femoral head. No easton fracture can be seen. Age-appropriate degenerative changes are seen. Soft tissues: No suspicious soft tissue calcifications or masses. IMPRESSION: Recurrent right prosthetic hip dislocation. Reviewed by: Billy Antunez MD on 03/21/2023 2:30 PM AKDT Approved by: Billy Antunez MD on 03/21/2023 2:30 PM RACHID Station ID: [id number]
--- NOTE | 2023-03-21 16:56 | XRAY Report ---
PROCEDURE: Hip w/Pelvis 2-3V RT INDICATIONS: reduction again TECHNIQUE: AP pelvis with lateral view(s) of the right hip(s). COMPARISON: Prior studies on 03/21/2023 and on 03/13/2023. FINDINGS: Bones: The right prosthetic hip has now been relocated. No definite acute fractures are seen. Prominent soft tissue heterotopic bone formation can be seen. Soft tissues: No suspicious soft tissue calcifications or masses. IMPRESSION: Right prosthetic hip relocation. Reviewed by: Billy Antunez MD on 03/21/2023 3:55 PM AKKATY Approved by: Billy Antunez MD on 03/21/2023 3:55 PM RACHID Station ID: [id number]
[2023-03-21 17:35] VITALS: BP 128/93; O2SAT 99
== END 2023-03-21 17:33 | disposition home or self-care (01) ==
LOC: EDUNIT# → ED 12:06
DX: M24.451 Recurrent dislocation, right hip (principal); I10 Essential (primary) hypertension
CPT/HCPCS: 27257; 73502; 96374; 99152; 99285; J1170; 94770

== ENCOUNTER 2023-03-23 09:01 | Outpatient (CLI) | payer MEDICARE, MEDICAID ==
--- NOTE | 2023-03-23 12:41 | MRI Report ---
PROCEDURE: BRAIN WO INDICATIONS: DOUBLE VISION, SYNCOPE TECHNIQUE: Noncontrast axial T1 spin echo, axial T2 fast spin echo, sagittal and axial FLAIR, coronal T2 fast sp in echo, axial gradient echo, axial diffusion and ADC through the brain. COMPARISON: 04/03/2017. Correlation is made with head CT, 11/05/2021. FINDINGS: Image quality: Excellent. CSF Spaces: Basal cisterns are patent. No extra-axial fluid collections. Ventricles are normal in size and shape. Brain: No intracranial masses or hemorrhage. Muhammad/white matter interface is normal. Brainstem appe ars normal. Diffusion-weighted images demonstrate no acute ischemic insult. No chronic ischemic ins ults. Normal intravascular flow voids are present. Brain parenchymal volume loss is seen. Skull and face: Calvarium has normal marrow signal. Orbits appear normal. Sinuses: Sinuses and mastoids are clear. IMPRESSION: Brain parenchymal volume loss is seen, which is somewhat advanced for age. Please correlate with unde rlying patient history. Reviewed by: Billy Antunez MD on 03/23/2023 11:40 AM RACHID Approved by: Billy Antunez MD on 03/23/2023 11:40 AM RACHID Station ID: [id number]
== END 2023-03-23 09:02 | disposition home or self-care (01) ==
LOC: DI 09:01
PROVIDERS: ATTEND Physician Assistant
DX: H53.2 Diplopia (principal); R55 Syncope and collapse

== ENCOUNTER 2023-04-04 20:05 | Emergency (ER) | payer MEDICARE, MEDICAID ==
[2023-04-04] MEDS ORDERED: SODIUM CHLORIDE 0.9% 1,000 ML IV STA (20:13)
--- NOTE | 2023-04-04 20:21 | ED Physician Documentation ---
History of Present Illness - Stated complaint Stated Complaint: HIP PAIN - Chief complaint Chief Complaint: General - History obtained from History obtained from: Patient, EMS - Additonal information Additional information: HPI from patient as well as EMS. DANIKA. Patient's past surgical history includes right hip replacement. He has had multiple dislocations of the prosthetic joint of his right hip. Last month he was evaluated in this emergency department but had to undergo surgical approach due to inability for ED MD to reduce the right hip dislocation. He was treated released in this emergency department 2 weeks ago after reduction of his right hip dislocation; of note, the hip again dislocated as he was getting to the wheelchair to be discharged from the ED, and thus a second reduction was (excessively) performed in the ED. Today at approximately 3 PM, the patient was at home, seated in a chair. He leaned to one side to reach for a drinking glass when he had a popping sensation of the right hip associated with sudden onset of right hip pain. He says this is similar to the previous hip dislocations. He remained seated in the chair until approximately 5 PM when family arrived home and found that he was unable to wait-bear. Despite this, the patient the family continue to endeavor to get the patient to bear enough weight to get him into a private vehicle so they could drive him to the ED. Eventually came to the conclusion that this was not going to be successful and thus they called 911. At no time did patient sustain a fall. He has no c/o except right hip pain. Patient was given 100 mcg of fentanyl IV by medics with improvement in the pain per patient. Review of Systems Musculoskeletal: reports: Joint pain, Pain with weight bearing. denies: Neck pain, Back pain, Extremity pain Neurologic: denies: Focal weakness, Numbness PD PAST MEDICAL HISTORY - Past Medical History Cardiovascular: Hypertension, High cholesterol Respiratory: Sleep apnea, CPAP use Neuro: Headaches, Other Endocrine/Autoimmune: None, Other GI: GERD, Pancreatitis, Cirrhosis : Incontinence HEENT: None Psych: Depression, Anxiety, Panic attacks, Claustrophobia Musculoskeletal: Osteoarthritis Derm: None - Past Surgical History Past Surgical History: Yes Ortho: Hip replacement, Arthroscopic surgery HEENT: Tracheostomy - Present Medications Home Medications: Ambulatory Orders Medication Instructions Recorded Confirmed Cholecalciferol [Vitamin D3] 1,000 units PO DAILY 01/17/20 02/12/23 Multivitamin W/Minerals [Theragran 1 each PO DAILY 01/17/20 02/12/23 M] Pantoprazole Sodium 40 mg PO DAILY 06/14/20 02/12/23 Gabapentin [Neurontin] 800 mg PO TID 11/23/20 02/12/23 Folic Acid/Vit B Complex and C 1 tab PO DAILY 11/24/20 02/12/23 [B-Complex with Vit C Tablet] Thiamine [Vitamin B-1] 100 mg PO DAILY #30 tablet 12/15/20 02/12/23 Lipase/Protease/Amylase [Creon Dr 1 each PO TIDWM 02/12/23 02/12/23 12,000 Units Capsule] Trazodone HCl 100 - 200 mg PO HS PRN 02/12/23 02/12/23 diphenhydrAMINE HCL [Sleep Aid] 25 mg PO HS PRN 02/12/23 02/12/23 oxyCODONE [Roxicodone] 5 mg PO BID #20 tablet 03/13/23 HYDROmorphone [Dilaudid] 2 mg PO Q6H PRN #15 tablet 03/21/23 oxyCODONE [Roxicodone] 5 mg PO Q6H PRN #15 tablet 03/21/23 - Allergies Allergies/Adverse Reactions: Allergies Allergy/AdvReac Type Severity Reaction Status Date / Time lisinopril Allergy Severe Anaphylaxis Verified 04/04/23 20:16 - Social History Does the pt smoke?: No Smoking Status: Never smoker Does the pt drink ETOH?: Yes Does the pt have substance abuse?: No - Immunizations Immunizations are current?: Yes Immunizations: Other immun not current - POLST Patient has POLST: No POLST Status: Full Code (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 and to TROUBLE CLERK, 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.) PD ED PE NORMAL - Vitals Vital signs reviewed: Yes - General General: 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, No acute distress, Well developed/nourished - Cardiac Cardiac: RRR, No murmur - Respiratory Respiratory: No respiratory distress, Clear bilaterally - Derm Derm: Normal color, Warm and dry - Extremities Extremities: No edema PD ED PE EXPANDED - Extremities Extremities: Limited ROM (unable to ROM right hip due to pain with any movement), Motor intact (wiggles toes and intact dorsi/plantar flexion (right)), Sensory intact (LTS intact right foot/toes), Vascular intact (normal right DP pulse, brisk capillary refill in right toes) Results - Vitals Vitals: Vital Signs - 24 hr 04/04/23 04/04/23 04/04/23 20:13 20:15 21:26 Temperature 36.3 C L 36.6 C Heart Rate 81 71 80 Respiratory 20 16 20 Rate Blood Pressure 122/92 H 120/78 119/79 O2 Saturation 96 97 96 If not protocol 2 : Oxygen Flow, liters/minute 04/04/23 04/04/23 04/04/23 21:29 21:30 21:35 Temperature 97.9 C H 36.7 C Heart Rate 85 80 86 Respiratory 20 16 21 Rate Blood Pressure 119/79 127/82 H 136/92 H O2 Saturation 96 97 96 If not protocol 2 2 : Oxygen Flow, liters/minute 04/04/23 04/04/23 04/04/23 21:40 21:45 21:50 Temperature 36.7 C Heart Rate 75 74 75 Respiratory 17 16 16 Rate Blood Pressure 112/92 H 117/88 H 113/73 O2 Saturation 96 93 96 If not protocol 2 2 2 : Oxygen Flow, liters/minute 04/04/23 04/04/23 04/04/23 21:53 22:00 22:15 Temperature Heart Rate 71 73 Respiratory 20 16 16 Rate Blood Pressure 137/77 H 124/83 H O2 Saturation 97 95 If not protocol 2 2 : Oxygen Flow, liters/minute 04/04/23 04/04/23 04/04/23 22:20 22:50 23:20 Temperature Heart Rate 71 71 76 Respiratory 16 16 16 Rate Blood Pressure 120/78 142/97 H 142/99 H O2 Saturation 97 95 If not protocol 2 2 2 : Oxygen Flow, liters/minute Oxygen O2 Source Nasal cannula - Labs Labs: Laboratory Tests 04/04/23 04/04/23 04/04/23 22:22 22:37 22:37 WBC 5.0 RBC 3.80 L Hgb 11.0 L Hct 33.6 L MCV 88.4 MCH 28.9 MCHC 32.7 RDW 16.8 H Plt Count 288 MPV 8.6 Neut # (Auto) 3.0 Lymph # (Auto) 1.2 L [place] # (Auto) 0.4 Eos # (Auto) 0.4 Baso # (Auto) 0.0 Absolute Nucleated RBC 0.00 Nucleated RBC % 0.0 Sodium 138 Potassium 4.0 Chloride 105 Carbon Dioxide 26 Anion Gap 7.0 BUN 11 Creatinine 0.7 Estimated GFR (MDRD) 115 Glucose 91 Calcium 8.9 Total Bilirubin 0.3 AST 16 ALT 7 L Alkaline Phosphatase 84 Total Protein 6.8 Albumin 4.3 Globulin 2.5 Albumin/Globulin Ratio 1.7 Lipase 19 Ethyl Alcohol 140.1 SARS-CoV-2 (PCR) NOT DETECTED - Rads (name of study) AP pelvis xray (portable) Relevant Findings:: Prelim report reviewed, EMP independent interpretation of test (I reviewed this image and my interpretation is: Dislocation of right prosthetic hip replacement.), See rad report repeat AP pelvis xray Relevant Findings:: Prelim report reviewed, EMP independent interpretation of test (I reviewed this image and my interpretation is no change in right hip prosthetic dislocation), See rad report Procedures - Reduction Body part reduced: Right, Hip, prosthetic Fracture or dislocation: Dislocation Anesthesia: Dilaudid, Other (propofol) Hip reduction technique: Allis - flex/pull/rotate, Fulcrum, [place] - prone flex Reduction aftercare: Patient tolerated well, Unable to reduce - Procedural sedation Sedation prep: Informed consent, Time out completed, Last meal (prior to 3 PM (patient unsure exactly when but defitinely before 3 PM today)), PE performed, ASA 2 - mild disease, IV O2 monitor, ET CO2 monitor, RT present Sedation Medications: propofol (Given five doses of 20mg IVP propfol, followed by 60mg IVP propofol, follwed by 30mg IVP propofol; this totals 190mg IVP propfol. All doses administered by me.) Mallampati classification: II Patient status during sedation: Unresponsive, Maintained airway, Recovered uneventfully Sedation recovery: Recovered uneventfully Time in sedation (Minutes): 25 PD Medical Decision Making - ED course Complexity details: reviewed old records (I reviewed the ED records from patient's visit to this ED in February as well as his 2 ED visits earlier this month), reviewed results, re-evaluated patient, considered differential, d/w patient ED course: Plain-film x-ray of the pelvis confirms dislocation of the right hip prosthesis. After analgesia (fentanyl on route by EMS and then IV Dilaudid in the ED) and propofol titrated to adequate effect (conscious sedation), I made multiple attempts to reduce the right hip that were unsuccessful. Dr. Hirsch then also attempted reduction with multiple attempts , again unsuccessful. Multiple methods for reduction were attempted. Unfortunately, orthopedic services are not available through the weekend at [facility]. I discussed this case with Dr. Carla Evans (orthopedic surgery art objects salesperson at [facility]). She agrees patient is appropriate for transfer to her facility, but she needs to look into bed availability. I subsequently heard back from Dr. Evans confirming bed availability and that she accepts patient for transfer to [facility]. Departure - Departure Disposition: 02 Transfer Acute Care Hosp Clinical Impression: Hip dislocation, right Condition: Stable Forms: PCP List Discharge Date/Time: 04/05/23 00:50
--- NOTE | 2023-04-04 20:58 | XRAY Report ---
PROCEDURE: Pelvis 1 View INDICATIONS: right hip pain, h/o dislocation of THR TECHNIQUE: 2 view(s) of the pelvis acquired. COMPARISON: None. FINDINGS: Bones: No fractures but there is a repeated arthroplasty dislocation at the right hip with the femor al component lateral and superior to the expected position.. No suspicious bony lesions. Soft tissues: Visualized bowel gas pattern is normal. No suspicious soft tissue calcifications. IMPRESSION: Repeat right total hip arthroplasty dislocation, without definite akhiok bone fracture associated. The exact anatomy of the arthroplasty, the akhiok bone, and what appears to be heterotopic ossificati on in the right hip area adjacent to what appears to be a cerclage wire in the soft tissues is uncert ain. Reviewed by: Ciro Gomez MD on 04/04/2023 8:57 PM PDT Approved by: Ciro Gomez MD on 04/04/2023 8:57 PM PDT Station ID: [id number]
[2023-04-04] MEDS ORDERED: PROPOFOL 200 MG/20 ML VIAL IVP STA (20:59)
[2023-04-04] MEDS ORDERED: HYDROmorphone 1 MG/ML CARPUJECT IVP STA ×2 (21:08→22:50)
--- NOTE | 2023-04-04 22:31 | XRAY Report ---
PROCEDURE: Pelvis 1 View INDICATIONS: post-reduction attempt TECHNIQUE: 1 view(s) of the pelvis acquired. COMPARISON: Similar study earlier same day.. FINDINGS: Bones: No definite fractures but there is a persistent right hip arthroplasty dislocation as was pre viously the case earlier same day. Dislocations. No suspicious bony lesions. Soft tissues: Visualized bowel gas pattern is normal. No suspicious soft tissue calcifications. IMPRESSION: No resolution of arthroplasty dislocation at the right hip in this patient. Reviewed by: Ciro Gomez MD on 04/04/2023 10:28 PM PDT Approved by: Ciro Gomez MD on 04/04/2023 10:28 PM PDT Station ID: [id number]
[2023-04-04 22:40] LABS: BASOPHILS % (AUTO) 0.8 %; EOSINOPHILS # (AUTO) 0.4 10^3/uL (0.0-0.7); HCT - HEMATOCRIT 33.6 % (42.0-52.0); LYMPHOCYTES # (AUTO) 1.2 10^3/uL (1.5-3.5); LYMPHOCYTES % (AUTO) 23.8 %; MEAN CORPUSCULAR HEMOGLOBIN 28.9 pg (27.0-31.0); MEAN CORPUSCULAR HGB CONC 32.7 g/dL (32.0-36.0); MEAN CORPUSCULAR VOLUME 88.4 fL (80.0-94.0); MEAN PLATELET VOLUME 8.6 fL (7.4-11.4); MONOCYTES # (AUTO) 0.4 10^3/uL (0.0-1.0); MONOCYTES % (AUTO) 7.6 %; NEUTROPHILS % (AUTO) 60.8 %; PLT - PLATELET COUNT 288 10^3/uL (130-450); RED CELL DISTRIBUTION WIDTH 16.8 % (12.0-15.0)
[2023-04-04 22:58] LABS: ALBUMIN 4.3 g/dL (3.2-5.5); ALBUMIN/GLOBULIN RATIO 1.7 (1.0-2.2); BILIRUBIN,TOTAL 0.3 mg/dL (0.2-1.0); CALCIUM 8.9 mg/dL (8.5-10.3); CREATININE 0.7 mg/dL (0.6-1.3); ETOH - ETHANOL 140.1 mg/dL; TOTAL PROTEIN 6.8 g/dL (6.4-8.9)
[2023-04-04 23:47] VITALS: O2SAT 95
[2023-04-04 23:56] VITALS: BP 142/99
== END 2023-04-05 00:50 | disposition short-term general hospital (02) ==
LOC: EDUNIT# → ED 20:05
DX: M25.551 Pain in right hip (principal); T84.020A Dislocation of internal right hip prosthesis, initial encounter; Z20.822 Contact with and (suspected) exposure to COVID-19
CPT/HCPCS: 27266; 36415; 72170; 80053; 83690; 85025; 87635; 96374; 99152; 99153; 99284; 99285; G0480; J1170; 80320; 94770

== ENCOUNTER 2023-04-21 14:41 | Outpatient (CLI) | payer MEDICARE, MEDICAID | END 2023-04-21 14:42 | disposition short-term general hospital (02) | LOC: EMS 14:41 | DX: M24.451 Recurrent dislocation, right hip (principal) | CPT/HCPCS: A0425; A0427 ==

== ENCOUNTER 2023-05-15 11:07 | Outpatient (CLI) | payer MEDICARE, MEDICAID | END 2023-05-15 11:08 | disposition EMS.NT | LOC: EMS 11:07 | DX: R55 Syncope and collapse (principal); R58 Hemorrhage, not elsewhere classified ==

== ENCOUNTER 2023-05-15 22:01 | Outpatient (CLI) | payer MEDICARE, MEDICAID | END 2023-05-15 22:02 | disposition short-term general hospital (02) | LOC: EMS 22:01 | DX: M25.551 Pain in right hip (principal); R10.11 Right upper quadrant pain; R10.31 Right lower quadrant pain; S79.911A Unspecified injury of right hip, initial encounter; W01.0XXA Fall on same level from slipping, tripping and stumbling without subsequent striking against object, initial encounter; Y92.010 Kitchen of single-family (private) house as the place of occurrence of the external cause; R58 Hemorrhage, not elsewhere classified | CPT/HCPCS: A0425; A0429; A0888 ==

== ENCOUNTER 2023-05-23 14:25 | Emergency (ER) | payer MEDICARE, MEDICAID ==
[2023-05-23 14:48] VITALS: BP 124/83; O2SAT 99
--- NOTE | 2023-05-23 15:35 | ED Physician Documentation ---
PD HPI LOWER EXT INJURY - Stated complaint Stated Complaint: HIP PX/SWELLING - Chief complaint Chief Complaint: Ext Problem - History obtained from History obtained from: Patient, Family (mom) - History of Present Illness PD HPI LOW EXT INJURY LOCATION: Left, Hip Type of injury: Fall Where injury occurred: Home Timing - onset: How many days ago (8) Timing - duration: Days (8) Timing - details: Still present Improved by: Rest, Immobilization Worsened by: Moving, Palpating Associated symptoms: Swelling. 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 He has undergone his most recent revision May 13. He was discharged to home and then he had a fall onto his right hip. He was evalutated at [facility] and sent home. He is here today with persistent pain and swelling at the incision site. Review of Systems Constitutional: denies: Fever Eyes: denies: Decreased vision Ears: denies: Ear pain Nose: denies: Congestion Throat: denies: Sore throat Cardiac: denies: Chest pain / pressure Respiratory: denies: Dyspnea, Cough GI: denies: Abdominal Pain, Nausea, Vomiting, Constipation, Diarrhea : denies: Dysuria, Frequency Skin: denies: Rash Musculoskeletal: reports: Extremity pain, Joint pain, Extremity swelling, Joint swelling, Pain with weight bearing. denies: Neck pain, Back pain Neurologic: denies: Generalized weakness, Focal weakness, Numbness PD PAST MEDICAL HISTORY - Past Medical History Past Medical History: Yes Cardiovascular: Hypertension, High cholesterol Respiratory: Sleep apnea, CPAP use Neuro: Headaches, Other Endocrine/Autoimmune: None, Other GI: GERD, Pancreatitis, Cirrhosis : Incontinence HEENT: None Psych: Depression, Anxiety, Panic attacks, Claustrophobia Musculoskeletal: Osteoarthritis Derm: None - Past Surgical History Past Surgical History: Yes Ortho: Hip replacement, Arthroscopic surgery HEENT: Tracheostomy - Present Medications Home Medications: Ambulatory Orders Medication Instructions Recorded Confirmed Cholecalciferol [Vitamin D3] 1,000 units PO DAILY 01/17/20 05/23/23 Multivitamin W/Minerals [Theragran 1 each PO DAILY 01/17/20 05/23/23 M] Pantoprazole Sodium 40 mg PO DAILY 06/14/20 05/23/23 Gabapentin [Neurontin] 800 mg PO TID 11/23/20 05/23/23 Folic Acid/Vit B Complex and C 1 tab PO DAILY 11/24/20 05/23/23 [B-Complex with Vit C Tablet] Thiamine [Vitamin B-1] 100 mg PO DAILY #30 tablet 12/15/20 05/23/23 Lipase/Protease/Amylase [Creon Dr 1 each PO TIDWM 02/12/23 05/23/23 12,000 Units Capsule] Trazodone HCl 100 - 200 mg PO HS PRN 02/12/23 05/23/23 diphenhydrAMINE HCL [Sleep Aid] 25 mg PO HS PRN 02/12/23 05/23/23 oxyCODONE [Roxicodone] 5 mg PO BID #20 tablet 03/13/23 05/23/23 HYDROmorphone [Dilaudid] 2 mg PO Q6H PRN #15 tablet 03/21/23 05/23/23 Cyclobenzaprine [Flexeril] 10 mg PO TID PRN #20 tablet 05/23/23 - Allergies Allergies/Adverse Reactions: Allergies Allergy/AdvReac Type Severity Reaction Status Date / Time lisinopril Allergy Severe Anaphylaxis Verified 05/23/23 14:42 - Social History Does the pt smoke?: No Smoking Status: Never smoker Does the pt drink ETOH?: No Does the pt have substance abuse?: No - Immunizations Immunizations are current?: Yes Immunizations: Other immun not current - POLST Patient has POLST: No POLST Status: Full Code (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 and to [employer], 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.) PD ED PE NORMAL - Vitals Vital signs reviewed: Yes (hypertensive ) - General General: 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, No acute distress, Well developed/nourished, Other (Stew appears well kempt today in contrast to his usual intoxication with alcohol. ) - HEENT HEENT: Atraumatic, PERRL, EOMI - Neck Neck: Supple, no meningeal sign - Respiratory Respiratory: No respiratory distress - Derm Derm: Normal color, Warm and dry, No rash - Extremities Extremities: Other (There is a healing right hip incisional wound without signs of erythema or dehiscence. There is swelling along the entire incision and swelling posteriorly and inferior to the trochanter. Swelling is consistent with hematoma formation.) - Neuro Neuro: 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, poolroom/poolhall manager 2-12 intact, No motor deficit, No sensory deficit, Normal speech Eye Opening: Spontaneous Motor: Obeys Commands Verbal: Oriented GCS Score: 15 - Psych Psych: Normal mood, Normal affect Results - Vitals Vitals: Vital Signs - 24 hr 05/23/23 14:37 Temperature 36.9 C Heart Rate 96 Respiratory 18 Rate Blood Pressure 124/83 H O2 Saturation 99 Oxygen O2 Source Room air - Rads (name of study) hip R Relevant Findings:: Prelim report reviewed (Impression: Unremarkable hip arthroplasty hardware, without complication or dislocation. Chronic poorly healed right proximal femur fracture.), EMP independent interpretation of test, See rad report u/s r hip Relevant Findings:: Prelim report reviewed (fluid collection with septation consistent with organizing hematoma. ) PD Medical Decision Making - ED course Complexity details: reviewed results, re-evaluated patient, considered differential, d/w patient, d/w family ED course: 58-year-old Stew Sanz is on his 5th revision of his right prosthesis and shortly after returning from the hospital after his surgery has had a fall and has developed a hematoma over the right hip area. He is here today for evaluati on of this odd appearing swelling. He has had this for 1 week. I evaluated him and at the bedside there is no evidence of infection. It is not particularly tender, he is still able to bear weight with this and x-ray of this area did not demonstrate any new findings. He did have ultrasound done of the area which appears to show clot with some organization. No specific treatment is indicated at this time. The patient did ask about some muscle relaxant as he does have a hard time sitting still and we have prescribed some Flexeril. I have asked the patient to call his orthopedic surgeon to let him know that he was seen and we diagnosed him with a hematoma. I did call the surgery team at the [facility] and spoke with the circulating nurse as the surgeon was scrubbed into surgery. I indicated to the nurse that we would be sending the heart patient home with conservative treatment and if some other form of treatment were actually indicated I have asked the nurse to have him call me back. Departure - Departure Disposition: 01 Home, Self Care Clinical Impression: Traumatic hematoma of right hip Qualifiers: Encounter type: initial encounter Qualified Code(s): S70.01XA - Contusion of right hip, initial encounter Condition: Stable Instructions: ED Hematoma Follow-Up: Nancie Gloria PA-C [Primary Care Provider] - Prescriptions: Cyclobenzaprine [Flexeril] 10 mg PO TID PRN #20 tablet PRN Reason: Spasms Comments: Stew today it looks like the massive swelling that you are having on your rig ht hip is related to a hematoma or a clotted blood collection under the skin. This is not something that we will be able to remove. I have let your surgeons at the [facility] know that you have this. The recommendation is to reduce your level of activity but continue to walk daily. This hematoma will take quite a while to resolve. On the order of months. Call your orthopedic doctor tomorrow for follow-up. We have e-scribed some flexeril to the [facility] market in [place]. This is a muscle relaxant that should make it easier for you to do less. Discharge Date/Time: 05/23/23 16:52
--- NOTE | 2023-05-23 15:58 | XRAY Report ---
PROCEDURE: Hip w/Pelvis 2-3V RT INDICATIONS: multiple revisions, fall hip swellng/pain TECHNIQUE: AP pelvis with lateral view(s) of the right hip(s). COMPARISON: 04/04/2023 FINDINGS: Bones: A chronic, poorly healed fracture of the right proximal femur can be seen. There is a longste m right hip arthroplasty, without complication. Soft tissues: No suspicious soft tissue calcifications or masses. IMPRESSION: Unremarkable hip arthroplasty hardware, without complication or dislocation. Chronic, poorly healed right proximal femur fracture. Reviewed by: Billy Antunez MD on 05/23/2023 2:57 PM [facility] Approved by: Billy Antunez MD on 05/23/2023 2:57 PM [facility] Station ID: [id number]
--- NOTE | 2023-05-23 16:36 | Ultrasound Report ---
PROCEDURE: Ext Limited Non Vascular INDICATIONS: multiple revisions, fall hip swellng/pain TECHNIQUE: Real-time scanning was performed of the right lateral hip/buttock region, with image docu mentation. Color Doppler ultrasound was also utilized. COMPARISON: Correlation is made with the accompanying plain film. FINDINGS: At the area of clinical concern, there is a nonvascular septated fluid collection that cindi sures nearly 12 cm. Mobile internal debris can be seen. IMPRESSION: Apparent 12 cm soft tissue hematoma seen at the area of clinical concern. No abnormal va scularity can be seen to suggest abscess at this time. Note: Concordant preliminary findings given by the theater technician upon the completion of the examination to Dr. Myers. Reviewed by: Billy Antunez MD on 05/23/2023 3:35 PM [facility] Approved by: Billy Antunez MD on 05/23/2023 3:35 PM [facility] Station ID: [id number]
== END 2023-05-23 16:52 | disposition home or self-care (01) ==
LOC: ED 14:25
DX: S70.01XA Contusion of right hip, initial encounter (principal); W18.30XA Fall on same level, unspecified, initial encounter; Z98.890 Other specified postprocedural states
CPT/HCPCS: 99283; 99284

== ENCOUNTER 2023-06-21 16:30 | Outpatient (CLI) | payer MEDICARE, MEDICAID | END 2023-06-21 16:31 | disposition critical access hospital (66) | LOC: EMS 16:30 | DX: M25.551 Pain in right hip (principal); R51.9 Headache, unspecified; F10.90 Alcohol use, unspecified, uncomplicated; R20.2 Paresthesia of skin; M54.2 Cervicalgia; W19.XXXA Unspecified fall, initial encounter; Z96.641 Presence of right artificial hip joint; R41.82 Altered mental status, unspecified; H55.00 Unspecified nystagmus; R45.1 Restlessness and agitation | CPT/HCPCS: A0425; A0429 ==

== ENCOUNTER 2023-06-21 16:49 | Emergency (ER) | payer MEDICARE, MEDICAID ==
--- NOTE | 2023-06-21 18:12 | ED Physician Documentation ---
History of Present Illness - Stated complaint Stated Complaint: GLF/ETOH - Chief complaint Chief Complaint: Trauma Ext - History obtained from History obtained from: Patient, EMS - History of Present Illness Timing: Today Pain level max: 8 Pain level now: 4 - Additonal information Additional information: Patient is a 58-year-old male who presents to the emergency department for recallable fall at home today. He is a chronic alcoholic and has been drinking today. He is unsure if he struck his head or not. Was placed in a c-collar by EMS but patient immediately remove this and refuses to put it back on upon arrival to the emergency department. He does complain of right hip pain. He has had a right hip replacement and several dislocations in the past. Worse with movement, better with rest. Denies taking any blood thinners. Denies any neck or back pain currently. Denies any other injuries. No vomiting. No fevers. No reported loss of consciousness Review of Systems Constitutional: denies: Fever GI: denies: Vomiting Skin: denies: Rash Musculoskeletal: denies: Neck pain, Back pain Neurologic: denies: Focal weakness, Numbness, Headache PD PAST MEDICAL HISTORY - Past Medical History Past Medical History: Yes Cardiovascular: Hypertension, High cholesterol Respiratory: Sleep apnea, CPAP use Neuro: Headaches, Other Endocrine/Autoimmune: None, Other GI: GERD, Pancreatitis, Cirrhosis : Incontinence HEENT: None Psych: Depression, Anxiety, Panic attacks, Claustrophobia Musculoskeletal: Osteoarthritis Derm: None - Past Surgical History Past Surgical History: Yes Ortho: Hip replacement, Arthroscopic surgery HEENT: Tracheostomy - Present Medications Home Medications: Ambulatory Orders Medication Instructions Recorded Confirmed Cholecalciferol [Vitamin D3] 1,000 units PO DAILY 01/17/20 06/21/23 Multivitamin W/Minerals [Theragran 1 each PO DAILY 01/17/20 06/21/23 M] Pantoprazole Sodium 40 mg PO DAILY 06/14/20 06/21/23 Gabapentin [Neurontin] 800 mg PO TID 11/23/20 06/21/23 Folic Acid/Vit B Complex and C 1 tab PO DAILY 11/24/20 06/21/23 [B-Complex with Vit C Tablet] Thiamine [Vitamin B-1] 100 mg PO DAILY #30 tablet 12/15/20 06/21/23 Lipase/Protease/Amylase [Creon Dr 1 each PO TIDWM 02/12/23 06/21/23 12,000 Units Capsule] Trazodone HCl 100 - 200 mg PO HS PRN 02/12/23 06/21/23 HYDROmorphone [Dilaudid] 2 mg PO Q6H PRN #15 tablet 03/21/23 06/21/23 - Allergies Allergies/Adverse Reactions: Allergies Allergy/AdvReac Type Severity Reaction Status Date / Time lisinopril Allergy Severe Anaphylaxis Verified 06/21/23 17:08 - Social History Does the pt smoke?: No Smoking Status: Never smoker Does the pt drink ETOH?: No Does the pt have substance abuse?: No - Immunizations Immunizations are current?: Yes Immunizations: Other immun not current - POLST Patient has POLST: No POLST Status: Full Code (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 and to RADIOLOGY RN, 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.) PD ED PE NORMAL - Vitals Vital signs reviewed: Yes - General General: 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, No acute distress - HEENT HEENT: Atraumatic, PERRL, EOMI, Ears normal, Moist mucous membranes - Neck Neck: Supple, no meningeal sign - Cardiac Cardiac: RRR, Strong equal pulses - Respiratory Respiratory: No respiratory distress, Clear bilaterally - Abdomen Abdomen: Soft, Non tender, Non distended - Derm Derm: Warm and dry - Extremities Extremities: No deformity - Neuro Neuro: 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 - Psych Psych: Normal mood, Normal affect - Free text exam Free text exam: Patient is able to stand, walk and pivots himself into the chair, however when he is sitting in the chair and I attempt to move his leg he states that there is pain and screams. When he relaxes the leg and hip are able to be moved freely or when he is distracted. NVI Results - Vitals Vitals: Oxygen O2 Source Room air - Rads (name of study) head ct Relevant Findings:: Final report received, See rad report cervical ct Relevant Findings:: Final report received, See rad report r hip xray Relevant Findings:: Final report received, See rad report PD Medical Decision Making - ED course Complexity details: reviewed results, re-evaluated patient, considered differential, d/w patient ED course: Pain resolved in the emergency department. No acute findings on head CT, cervical spine CT, right hip x-ray. Patient is ambulating without any difficulty here. He will follow-up with his doctor for further care. Patient counseled regarding signs and symptoms for which I believe and urgent re- evaluation would be necessary. Patient with good understanding of and agreement to plan and is comfortable going home at this time This document was made in part using voice recognition software. While efforts are made to proofread this document, sound alike and grammatical errors may occur. Departure - Departure Disposition: 01 Home, Self Care Clinical Impression: Contusion of hip, right Qualifiers: Encounter type: initial encounter Qualified Code(s): S70.01XA - Contusion of right hip, initial encounter Condition: Good Instructions: ED Contusion Hip Follow-Up: Nancie Gloria PA-C [Primary Care Provider] - Within 1 week Comments: Please follow-up with your doctor for further care. Your head CT, cervical spine CT and hip x-rays do not show any acute abnormalities. You can use Tylenol or Motrin as needed for pain. Forms: PCP List Discharge Date/Time: 06/21/23 20:16
--- NOTE | 2023-06-21 19:21 | CT Report ---
PROCEDURE: Cervical Spine WO INDICATIONS: fall, neck injury TECHNIQUE: Noncontrast 3 mm thick sections acquired from the skull base to the T4 level. Sagittal and coronal r eformats were then constructed. For radiation dose reduction, the following was used: automated exp osure control, adjustment of mA and/or kV according to patient size. COMPARISON: None. FINDINGS: Image quality: Excellent. Bones: No fractures or dislocations. Visualized superior ribs are intact. Soft tissues: Prevertebral soft tissues are normal in thickness. No paravertebral hematomas. No ap ical pneumothoraces. IMPRESSION: No acute, displaced fracture or traumatic subluxation. Reviewed by: Joseph Corado MD on 06/21/2023 7:20 PM PST Approved by: Joseph Corado MD on 06/21/2023 7:20 PM PST Station ID: [id number]
--- NOTE | 2023-06-21 19:23 | CT Report ---
PROCEDURE: Head WO INDICATIONS: fall, head injury TECHNIQUE: Noncontrast 4.5 mm thick angled axial sections acquired from the foramen magnum to the vertex. For r adiation dose reduction, the following was used: automated exposure control, adjustment of mA and/or kV according to patient size. COMPARISON: None. FINDINGS: Image quality: Excellent. CSF spaces: Basal cisterns are patent. No extra-axial fluid collections. Ventricles are normal in size and shape. Brain: No midline shift. No intracranial masses or hemorrhage. Muhammad-white matter interface is norm al. Skull and face: Calvarium and visualized facial bones are intact, without suspicious lesions. Sinuses: Visualized sinuses and mastoids are clear. IMPRESSION: No acute intracranial pathology. Reviewed by: Joseph Corado MD on 06/21/2023 7:21 PM PST Approved by: Joseph Corado MD on 06/21/2023 7:21 PM [facility] Station ID: [id number]
--- NOTE | 2023-06-21 19:24 | XRAY Report ---
PROCEDURE: Hip w/Pelvis 2-3V RT INDICATIONS: fall, hip pain TECHNIQUE: 3 views of the hip were acquired. COMPARISON: None. FINDINGS: Bones: Right total hip arthroplasty. Similar lucency surrounding the proximal femoral stem. No displ aced fracture. Soft tissues: No suspicious soft tissue calcifications or masses. IMPRESSION: Stable appearance of the right total hip arthroplasty. No displaced fracture. Reviewed by: Joseph Corado MD on 06/21/2023 7:23 PM PST Approved by: Joseph Corado MD on 06/21/2023 7:23 PM PST Station ID: [id number]
[2023-06-21 19:29] VITALS: BP 130/88; O2SAT 98
== END 2023-06-21 20:16 | disposition home or self-care (01) ==
LOC: EDUNIT# → ED 16:49
DX: S70.01XA Contusion of right hip, initial encounter (principal); W18.30XA Fall on same level, unspecified, initial encounter; Y92.009 Unspecified place in unspecified non-institutional (private) residence as the place of occurrence of the external cause; F10.10 Alcohol abuse, uncomplicated; I10 Essential (primary) hypertension; E78.00 Pure hypercholesterolemia, unspecified; Z79.899 Other long term (current) drug therapy
CPT/HCPCS: 99283; 99284

== ENCOUNTER 2023-07-03 11:55 | Outpatient (CLI) | payer MEDICARE, MEDICAID | END 2023-07-03 23:59 | disposition short-term general hospital (02) | LOC: EMS 11:55 | DX: S49.92XA Unspecified injury of left shoulder and upper arm, initial encounter (principal); M25.532 Pain in left wrist; W18.39XA Other fall on same level, initial encounter; Y92.009 Unspecified place in unspecified non-institutional (private) residence as the place of occurrence of the external cause | CPT/HCPCS: A0425; A0427; A0888 ==

== ENCOUNTER 2023-07-07 16:56 | Outpatient (CLI) | payer MEDICARE, MEDICAID | END 2023-07-07 23:59 | disposition short-term general hospital (02) | LOC: EMS 16:56 | DX: M25.512 Pain in left shoulder (principal); W01.198A Fall on same level from slipping, tripping and stumbling with subsequent striking against other object, initial encounter; Y92.009 Unspecified place in unspecified non-institutional (private) residence as the place of occurrence of the external cause | CPT/HCPCS: A0425; A0999 ==

== ENCOUNTER 2023-10-06 15:31 | Emergency (ER) | payer MEDICARE, MEDICAID ==
[2023-10-06 16:07] LABS: BASOPHILS % (AUTO) 0.5 %; EOSINOPHILS % (AUTO) 0.3 %; HCT - HEMATOCRIT 33.8 % (42.0-52.0); HGB - HEMOGLOBIN 11.2 g/dL (14.0-18.0); LYMPHOCYTES % (AUTO) 17.4 %; MEAN CORPUSCULAR HEMOGLOBIN 27.9 pg (27.0-31.0); MEAN CORPUSCULAR HGB CONC 33.1 g/dL (32.0-36.0); MEAN CORPUSCULAR VOLUME 84.3 fL (80.0-94.0); MEAN PLATELET VOLUME 9.4 fL (7.4-11.4); MONOCYTES # (AUTO) 0.6 10^3/uL (0.0-1.0); MONOCYTES % (AUTO) 9.7 %; NEUTROPHILS # (AUTO) 4.1 10^3/uL (1.5-6.6); NEUTROPHILS % (AUTO) 71.9 %; PLT - PLATELET COUNT 357 10^3/uL (130-450); RED BLOOD COUNT 4.01 10^6/uL (4.70-6.10); RED CELL DISTRIBUTION WIDTH 17.4 % (12.0-15.0); WHITE BLOOD COUNT 5.8 x10^3/uL (4.8-10.8)
--- NOTE | 2023-10-06 16:07 | ED Physician Documentation ---
PD HPI CHEST PAIN - Stated complaint Stated Complaint: CHEST PX,SOA - Chief complaint Chief Complaint: Cardiac - History obtained from History obtained from: Patient - Additional information Additional information: 58-year-old gentleman with history of alcoholism, and he tells me today chronic benzodiazepine use which he buys on the Internet. He has no clear history of heart problems, he did have a possible cardiac arrest a few years ago but it was not clearly from a cardiac cause, more likely substance related. He states that for a long time is admit having intermittent chest pains, oftentimes away, but during the night and he feels like he has to clutch his chest. Usually brief but he had an episode today that was longer, maybe 30 minutes. It is improved now. He states that he did not drink last night which is atypical for him, but did drink 2 nights ago. Last dose of Ativan was 2 mg just prior to arrival. PD PAST MEDICAL HISTORY - Past Medical History Past Medical History: Yes Cardiovascular: Hypertension, High cholesterol, Other Respiratory: Sleep apnea, CPAP use Neuro: Headaches, Other Endocrine/Autoimmune: None, Other GI: GERD, Pancreatitis, Cirrhosis : Incontinence HEENT: None Psych: Depression, Anxiety, Panic attacks, Claustrophobia Musculoskeletal: Osteoarthritis Derm: None - Past Surgical History Past Surgical History: Yes Ortho: Hip replacement, Arthroscopic surgery HEENT: Tracheostomy - Present Medications Home Medications: Ambulatory Orders Medication Instructions Recorded Confirmed Cholecalciferol [Vitamin D3] 1,000 units PO DAILY 01/17/20 06/21/23 Multivitamin W/Minerals [Theragran 1 each PO DAILY 01/17/20 06/21/23 M] Pantoprazole Sodium 40 mg PO DAILY 06/14/20 06/21/23 Gabapentin [Neurontin] 800 mg PO TID 11/23/20 06/21/23 Folic Acid/Vit B Complex and C 1 tab PO DAILY 11/24/20 06/21/23 [B-Complex with Vit C Tablet] Thiamine [Vitamin B-1] 100 mg PO DAILY #30 tablet 12/15/20 06/21/23 Lipase/Protease/Amylase [Nathalie Ohara 1 each PO TIDWM 02/12/23 06/21/23 12,000 Units Capsule] Trazodone HCl 100 - 200 mg PO HS PRN 02/12/23 06/21/23 HYDROmorphone [Dilaudid] 2 mg PO Q6H PRN #15 tablet 03/21/23 06/21/23 LORazepam [Ativan] 1 mg PO TID PRN #6 tablet 10/06/23 - Allergies Allergies/Adverse Reactions: Allergies Allergy/AdvReac Type Severity Reaction Status Date / Time lisinopril Allergy Severe Anaphylaxis Verified 10/06/23 15:35 - Social History Does the pt smoke?: No Smoking Status: Never smoker Does the pt drink ETOH?: Yes Does the pt have substance abuse?: No - Immunizations Immunizations are current?: Yes Immunizations: Other immun not current - POLST Patient has POLST: No POLST Status: Full Code (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 and to 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, 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.) PD ED PE NORMAL - Vitals Vital signs reviewed: Yes - General General: 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, No acute distress - HEENT HEENT: EOMI, Other (Dilated pupils) - Neck Neck: Supple, no meningeal sign, No bony TTP - Cardiac Cardiac: No murmur, Other (Mild resting tachycardia, regular) - Respiratory Respiratory: No respiratory distress, Clear bilaterally - Abdomen Abdomen: Non tender - Back Back: No CVA TTP, No spinal TTP - Derm Derm: Normal color, Warm and dry - Extremities Extremities: No edema, No calf tenderness / cord - Neuro Neuro: 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, Normal speech Results - Vitals Vitals: Vital Signs - 24 hr 10/06/23 10/06/23 10/06/23 15:35 15:46 16:04 Temperature 36.3 C L Heart Rate 116 H 108 H Respiratory 24 18 Rate Blood Pressure 126/81 H 138/93 H Blood Pressure 138/93 H [Left] O2 Saturation 100 96 10/06/23 10/06/23 16:16 16:30 Temperature Heart Rate 110 H 98 Respiratory 15 18 Rate Blood Pressure 128/88 H 118/82 H Blood Pressure [Left] O2 Saturation 95 96 Oxygen O2 Source Room air - EKG (time done) 1542 EKG releavant findings:: EKG personally interpreted by author of this note. Relevant findings are: Rate: Rate (enter#) (110) Rhythm: NSR, LAE [place]: Normal Intervals: Normal [place] QRS: Normal Ischemia: Normal ST segments - Labs Labs: Laboratory Tests 10/06/23 10/06/23 16:00 16:00 WBC 5.8 RBC 4.01 L Hgb 11.2 L Hct 33.8 L MCV 84.3 MCH 27.9 MCHC 33.1 RDW 17.4 H Plt Count 357 MPV 9.4 Neut # (Auto) 4.1 Lymph # (Auto) 1.0 L [place] # (Auto) 0.6 Eos # (Auto) 0.0 Baso # (Auto) 0.0 Absolute Nucleated RBC 0.00 Nucleated RBC % 0.0 Sodium 135 Potassium 3.3 L Chloride 99 L Carbon Dioxide 21 Anion Gap 15.0 H BUN 12 Creatinine 0.8 Estimated GFR (MDRD) 99 Glucose 104 Calcium 9.7 Total Bilirubin 0.8 AST 27 ALT 67 H Alkaline Phosphatase 72 Troponin I High Sens 2.8 Total Protein 7.3 Albumin 4.6 Globulin 2.7 Albumin/Globulin Ratio 1.7 Lipase < 10 L PD Medical Decision Making - ED course ED course: He has no clear history of heart problems, he presents for chest pain that is improving. He may be withdrawing from alcohol and benzodiazepines. He appears well though. He has a mild resting tachycardia. He is driving so did not want Ativan here. ACS is considered and we will check a troponin. CBC showing modest anemia, CMP unremarkable, troponin normal/negative. He was prescribed a small number of Ativan to get him through. He is considering going to detox for that. Departure - Departure Disposition: 01 Home, Self Care Clinical Impression: Benzodiazepine abuse Chest pain Qualifiers: Chest pain type: unspecified Qualified Code(s): R07.9 - Chest pain, unspecified Condition: Stable Record reviewed to determine appropriate education?: Yes Instructions: ED Chest Pain NonCardiac, ED Withdrawal Benzodiazepine Prescriptions: LORazepam [Ativan] 1 mg PO TID PRN #6 tablet PRN Reason: Anxiety Comments: There is no evidence of heart attack today and your chest x-ray is looking okay. I am prescribing a few Ativan to help get you through but given your Ativan addiction and your history of alcoholism would recommend seeking inpatient treatment for that. As you already know, the local detoxification center in [place] does not treat benzodiazepine withdrawal and you tell me you are already thinking about going to [place] for treatment for that which has not unreasonable. Call your doctor to arrange a follow-up appointment, make the next available appointment. In the interim, return anytime if worse or if new symptoms develop. I sent your prescription electronically to the [facility] in [place]. Do not drink or drive while taking benzodiazepines. Forms: PCP List Discharge Date/Time: 10/06/23 16:52
[2023-10-06 16:24] LABS: ALBUMIN 4.6 g/dL (3.2-5.5); ALBUMIN/GLOBULIN RATIO 1.7 (1.0-2.2); ALKALINE PHOSPHATASE 72 IU/L (42-121); ALT ALANINE AMINOTRANSFERASE 67 IU/L (10-60); AST ASPARTATE AMINOTRANSFERASE 27 IU/L (10-42); BILIRUBIN,TOTAL 0.8 mg/dL (0.2-1.0); BUN - BLOOD UREA NITROGEN 12 mg/dL (6-20); CALCIUM 9.7 mg/dL (8.5-10.3); CARBON DIOXIDE - CO2 21 mmol/L (21-32); CHLORIDE 99 mmol/L (101-111); CREATININE 0.8 mg/dL (0.6-1.3); GFR - MDRD 99 (>89); GLUCOSE 104 mg/dL (74-104); LIPASE < 10 U/L (11-82); POTASSIUM 3.3 mmol/L (3.5-4.5); SODIUM 135 mmol/L (135-145); TOTAL PROTEIN 7.3 g/dL (6.4-8.9)
[2023-10-06 16:25] LABS: TROPONIN I HIGH SENSITIVITY 2.8 ng/L (2.3-19.7)
--- NOTE | 2023-10-06 16:35 | XRAY Report ---
PROCEDURE: Chest 1V INDICATIONS: Chest pain TECHNIQUE: One view of the chest was acquired. COMPARISON: None. FINDINGS: Surgical changes and devices: None. Lungs and pleura: No pleural effusions or pneumothorax. Lungs are clear. Mediastinum: Mediastinal contours appear normal. Heart size is normal. Bones and chest wall: No suspicious bony lesions. Overlying soft tissues appear unremarkable. IMPRESSION: No acute cardiopulmonary process. Reviewed by: Jon Arzate MD on 10/06/2023 4:34 PM PDT Approved by: Jon Arzate MD on 10/06/2023 4:34 PM PDT Station ID: [id number]
[2023-10-06 16:58] VITALS: BP 118/82; O2SAT 96
== END 2023-10-06 16:52 | disposition home or self-care (01) ==
LOC: ED 15:31
DX: R07.9 Chest pain, unspecified (principal); F13.20 Sedative, hypnotic or anxiolytic dependence, uncomplicated
CPT/HCPCS: 36415; 80053; 83690; 84484; 85025; 93005; 99284

== ENCOUNTER 2023-11-04 23:33 | Outpatient (CLI) | payer MEDICARE, MEDICAID | END 2023-11-04 23:59 | disposition left against medical advice (07) | LOC: EMS 23:33 | DX: F10.90 Alcohol use, unspecified, uncomplicated (principal) ==

== ENCOUNTER 2023-11-06 11:12 | Outpatient (CLI) | payer MEDICARE, MEDICAID ==
[2023-11-06 18:40] LABS: PSA TOTAL 1.429 ng/mL (0.000-2.000)
== END 2023-11-06 11:13 | disposition home or self-care (01) ==
LOC: LAB.N 11:12
PROVIDERS: ATTEND Physician Assistant
DX: M25.512 Pain in left shoulder (principal); M25.551 Pain in right hip
CPT/HCPCS: 36415; 84153

== ENCOUNTER 2023-12-23 00:27 | Outpatient (CLI) | payer MEDICARE, MEDICAID | END 2023-12-23 22:23 | disposition critical access hospital (66) | LOC: EMS 00:27 | DX: S49.92XA Unspecified injury of left shoulder and upper arm, initial encounter (principal); S50.312A Abrasion of left elbow, initial encounter; W18.39XA Other fall on same level, initial encounter; Y93.89 Activity, other specified | CPT/HCPCS: A0425; A0429 ==

== ENCOUNTER 2023-12-23 00:47 | Emergency (ER) | payer MEDICARE, MEDICAID ==
--- NOTE | 2023-12-23 01:12 | ED Physician Documentation ---
PD HPI UPPER EXT INJURY - Stated complaint Stated Complaint: GLF - Chief complaint Chief Complaint: Trauma Ext - History obtained from History obtained from: Patient - Additonal information Additional information: BIBA. HPI from patient. Patient says that approximately 8 PM tonight he was picking cherries when he lost his balance and fell to the ground. Upon hitting the ground, he had sudden onset of the left shoulder pain. Unable to range of motion left shoulder due to exacerbation of the pain with any movement involving left shoulder. Patient is right-hand dominant. He denies any other injury including head injury, neck injury. Denies numbness, weakness. Patient does not take any blood-thinning medications. PD PAST MEDICAL HISTORY - Past Medical History Cardiovascular: Hypertension, High cholesterol, Other Respiratory: Sleep apnea, CPAP use Neuro: Headaches, Other Endocrine/Autoimmune: None, Other GI: GERD, Pancreatitis, Cirrhosis : Incontinence HEENT: None Psych: Depression, Anxiety, Panic attacks, Claustrophobia Musculoskeletal: Osteoarthritis Derm: None - Past Surgical History Past Surgical History: Yes Ortho: Hip replacement, Arthroscopic surgery HEENT: Tracheostomy - Present Medications Home Medications: Ambulatory Orders Medication Instructions Recorded Confirmed Cholecalciferol [Vitamin D3] 1,000 units PO DAILY 01/17/20 06/21/23 Multivitamin W/Minerals [Theragran 1 each PO DAILY 01/17/20 06/21/23 M] Pantoprazole Sodium 40 mg PO DAILY 06/14/20 06/21/23 Gabapentin [Neurontin] 800 mg PO TID 11/23/20 06/21/23 Folic Acid/Vit B Complex and C 1 tab PO DAILY 11/24/20 06/21/23 [B-Complex with Vit C Tablet] Thiamine [Vitamin B-1] 100 mg PO DAILY #30 tablet 12/15/20 06/21/23 Lipase/Protease/Amylase [Creon Dr 1 each PO TIDWM 02/12/23 06/21/23 12,000 Units Capsule] Trazodone HCl 100 - 200 mg PO HS PRN 02/12/23 06/21/23 HYDROmorphone [Dilaudid] 2 mg PO Q6H PRN #15 tablet 03/21/23 06/21/23 LORazepam [Ativan] 1 mg PO TID PRN #6 tablet 10/06/23 - Allergies Allergies/Adverse Reactions: Allergies Allergy/AdvReac Type Severity Reaction Status Date / Time lisinopril Allergy Severe Anaphylaxis Verified 10/06/23 15:35 - Social History Does the pt smoke?: No Smoking Status: Never smoker Does the pt drink ETOH?: Yes ETOH Use: Liquor Does the pt have substance abuse?: No - Immunizations Immunizations are current?: Yes Immunizations: Other immun not current - POLST Patient has POLST: No POLST Status: Full Code (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, 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.) PD ED PE NORMAL - Vitals Vital signs reviewed: Yes - General General: 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, No acute distress, Well developed/nourished - HEENT HEENT: Atraumatic, PERRL, EOMI, Moist mucous membranes - Cardiac Cardiac: RRR, No murmur - Respiratory Respiratory: No respiratory distress, Clear bilaterally - Abdomen Abdomen: Soft, Non tender - Back Back: No spinal TTP PD ED PE EXPANDED - Extremities Extremities: Deformity, Limited ROM, Left shoulder FUAD UE/Hands Visual: 1 - bruising 2 - abrasion, tenderness Results - Vitals Vitals: Vital Signs - 24 hr 12/23/23 12/23/23 12/23/23 00:50 01:34 01:44 Temperature 36.9 C 36.2 C L 36.1 C L Heart Rate 80 90 90 Respiratory 14 12 20 Rate Blood Pressure 128/93 H 128/64 115/87 H O2 Saturation 100 100 99 If not protocol 4 : Oxygen Flow, liters/minute 12/23/23 12/23/23 12/23/23 01:49 01:54 02:00 Temperature 36.1 C L 36.3 C L Heart Rate 93 90 94 Respiratory 8 L 14 Rate Blood Pressure 115/81 H 121/90 H 113/85 H O2 Saturation 100 100 100 If not protocol : Oxygen Flow, liters/minute 12/23/23 12/23/23 12/23/23 02:09 02:24 02:54 Temperature 36 C L 36.5 C 36.3 C L Heart Rate 91 79 89 Respiratory 14 12 17 Rate Blood Pressure 113/93 H 119/90 H 125/97 H O2 Saturation 100 100 100 If not protocol : Oxygen Flow, liters/minute 12/23/23 12/23/23 12/23/23 03:24 04:12 06:00 Temperature 36.4 C L 36.4 C L Heart Rate 102 H 99 99 Respiratory 16 16 16 Rate Blood Pressure 118/94 H 128/58 L 115/84 H O2 Saturation 100 100 99 If not protocol : Oxygen Flow, liters/minute Oxygen O2 Source Room air Oxygen Flow Rate 0 - Labs Labs: Laboratory Tests 12/23/23 12/23/23 01:22 01:22 WBC 6.4 RBC 3.16 L Hgb 9.7 L Hct 28.3 L MCV 89.6 MCH 30.7 MCHC 34.3 RDW 16.7 H Plt Count 272 MPV 8.7 Neut # (Auto) 4.9 Lymph # (Auto) 0.9 L [place] # (Auto) 0.4 Eos # (Auto) 0.2 Baso # (Auto) 0.1 Absolute Nucleated RBC 0.00 Nucleated RBC % 0.0 Sodium 134 L Potassium 4.0 Chloride 98 L Carbon Dioxide 28 Anion Gap 8.0 BUN 10 Creatinine 0.6 Estimated GFR (MDRD) 138 Glucose 105 H Calcium 9.0 - Rads (name of study) left shoulder xrays Relevant Findings:: Prelim report reviewed, EMP independent interpretation of test (I reviewed these images and my interpretation is left glenohumeral dislocation. Multiple left-sided old rib fractures noted. No evidence of acute fracture, pneumothorax.), See rad report left elbow xrays Relevant Findings:: Prelim report reviewed, See rad report Procedures - Splint (location) - Minor Upper extremity left Splint applied by: Nurse Type of splint: Fiberglass, Short arm, Posterior Other: Patient tolerated well, No complications, Neurovascular intact, Sling provided - Reduction Body part reduced: Left, Shoulder Fracture or dislocation: Dislocation Anesthesia: Dilaudid Shoulder reduction technique: [place] / ext rotation Reduction aftercare: NV intact, Xray confirms reduction, Alignment improved, Sling, Patient tolerated well - Procedural sedation Sedation prep: Informed consent, Time out completed, Last meal (18:30), PE performed, ASA 2 - mild disease Sedation Medications: propofol (propofol titrated as follows: 30mg IVP, 20mg IVP, 30mg IVP, 20mg IVP. This was followed by first attempt at reduction but xray shows reduction not achieved. propofol then given 30mg IVP, 20mg IVP and reduction successful. This was a TOTAL OF 150mg IV propofol) Mallampati classification: I Patient status during sedation: Responds to tactile (responds only to painful stimulus (specifically, minimally responds with left shoulder manipulation)), Vitals remained stable, Recovered uneventfully, Respiratory depression, Hypoxia (mild hypoxia (upper 80s) that rapidly responded to supplemental oxygen (4 L/min)) Sedation recovery: Recovered uneventfully, Back to baseline Time in sedation (Minutes): 25 PD Medical Decision Making - ED course Complexity details: reviewed results, re-evaluated patient, considered differential, d/w patient ED course: Patient presents with left glenohumeral dislocation. Given 1 mg IV Dilaudid and conscious sedation then undertaken using aliquots of propofol as documented above. First attempt to reduce shoulder was unsuccessful as evidenced by bedside shoulder x-ray, but second attempt was successful both clinically as well as by bedside x-ray (confirms reduction). Once the patient had recovered from the effects of conscious sedation, I reexamined the left upper extremity and noted tenderness to palpation over the left olecranon where there is some bruising and abrasions. Thus, a left elbow x-ray is undertaken. There are suspicious calcifications adjacent to the olecranon on this study; this could represent a chronic process (such as calcific tendinitis) or acute (avulsion fracture). Thus, the patient is then placed in a left elbow (posterior) splint, and a sling is again placed on the left upper extremity. Results of the x-rays included findings on the elbow x-rays discussed with patient, and I advised him to follow-up with orthopedic surgery within 1 week for reevaluation not only the shoulder dislocation, but more so for the left elbow abnormality on x-ray. Late in his stay, patient is given 2 mg lorazepam p.o. due to increasing generalized tremulousness which is likely due to alcohol withdrawal. The reason he spent an inordinate amount of time in the emergency department was due to difficulty in procuring a ride for this patient. Departure - Departure Disposition: 01 Home, Self Care Clinical Impression: Avulsion fracture of bone Dislocation of left shoulder joint Qualifiers: Encounter type: initial encounter Qualified Code(s): S43.005A - Unspecified dislocation of left shoulder joint, initial encounter Condition: Good Instructions: ED Dislocation Shoulder Redu, ED Fx Elbow, ED Sling, ED Splint Care Fiberglass Follow-Up: Daron Collazo MD [Provider Admit Priv/Credential] - Comments: There is abnormal calcification on the elbow x-rays; it is unclear if this represents a chronic finding (such as calcium buildup in your tendon) or an acute injury (such as an avulsion fracture, which is when a tendon rips off of its insertion point, bringing pieces of bone with it as it tears away). Because of this finding, a splint was placed on your elbow, and you will need to follow- up with an orthopedic surgeon within the next week for reevaluation of this injury. They might perform further tests to aid in determining whether this is a finding that would need specific treatment. Discharge Date/Time: 12/23/23 06:17
[2023-12-23 01:25] LABS: BASOPHILS # (AUTO) 0.1 10^3/uL (0.0-0.1); BASOPHILS % (AUTO) 0.8 %; EOSINOPHILS # (AUTO) 0.2 10^3/uL (0.0-0.7); HCT - HEMATOCRIT 28.3 % (42.0-52.0); HGB - HEMOGLOBIN 9.7 g/dL (14.0-18.0); LYMPHOCYTES # (AUTO) 0.9 10^3/uL (1.5-3.5); LYMPHOCYTES % (AUTO) 13.3 %; MEAN CORPUSCULAR HEMOGLOBIN 30.7 pg (27.0-31.0); MEAN CORPUSCULAR HGB CONC 34.3 g/dL (32.0-36.0); MEAN CORPUSCULAR VOLUME 89.6 fL (80.0-94.0); MEAN PLATELET VOLUME 8.7 fL (7.4-11.4); MONOCYTES # (AUTO) 0.4 10^3/uL (0.0-1.0); MONOCYTES % (AUTO) 6.1 %; NEUTROPHILS # (AUTO) 4.9 10^3/uL (1.5-6.6); NEUTROPHILS % (AUTO) 76.5 %; PLT - PLATELET COUNT 272 10^3/uL (130-450); RED BLOOD COUNT 3.16 10^6/uL (4.70-6.10); RED CELL DISTRIBUTION WIDTH 16.7 % (12.0-15.0); WHITE BLOOD COUNT 6.4 x10^3/uL (4.8-10.8)
[2023-12-23] MEDS: SODIUM CHLORIDE 0.9% 1,000 ML IV STA (01:26)
[2023-12-23] MEDS: HYDROmorphone 1 MG/ML CARPUJECT IVP STA (01:26)
[2023-12-23] MEDS ORDERED: ONDANSETRON 4 MG/2 ML VIAL ONE (01:28)
[2023-12-23] MEDS: ONDANSETRON 4 MG/2 ML VIAL IVP STA (01:30)
--- NOTE | 2023-12-23 01:41 | XRAY Report ---
PROCEDURE: Shoulder 2+V LT INDICATIONS: GLF TECHNIQUE: 3 views of the shoulder were acquired. COMPARISON: None. FINDINGS: Bones: There is anterior dislocation of the glenohumeral joint space. No definitively identified fra cture. Soft tissues: No suspicious soft tissue calcifications. The visualized lungs are within normal limi ts. IMPRESSION: Anterior dislocation without visualized fracture. Reviewed by: Maria T Alcala MD on 12/23/2023 1:40 AM PDT Approved by: Maria T Alcala MD on 12/23/2023 1:40 AM PDT Station ID: [id number]
[2023-12-23 01:46] LABS: CREATININE 0.6 mg/dL (0.6-1.3)
[2023-12-23] MEDS: PROPOFOL 200 MG/20 ML VIAL IVP STA (01:57)
[2023-12-23] MEDS: LORazepam 1 MG TABLET PO STA (05:00)
[2023-12-23 06:23] VITALS: BP 115/84; O2SAT 99
--- NOTE | 2023-12-23 08:35 | XRAY Report ---
PROCEDURE: Shoulder 1V LT INDICATIONS: reduction left shoulder TECHNIQUE: 1 views of the shoulder were acquired. COMPARISON: Same-day radiograph FINDINGS: Bones: Reduction of the glenohumeral dislocation Probable Hill-Sachs deformity. Soft tissues: No suspicious calcifications. IMPRESSION: Reduction of the glenohumeral dislocation. Agree with preliminary report. Possible expected Hill-Sachs deformity. Reviewed by: Mikhail Steward MD on 12/23/2023 8:34 AM PDT Approved by: Mikhail Steward MD on 12/23/2023 8:34 AM PDT Station ID: [id number]
--- NOTE | 2023-12-23 08:37 | XRAY Report ---
PROCEDURE: Elbow 1-2V LT INDICATIONS: left elbow injury, pain, tenderness TECHNIQUE: 2 views of the elbow were acquired. COMPARISON: None. FINDINGS: Bones: Moderate olecranon enthesopathy. There may be a superimposed avulsion fragment. No acute displ aced fracture or dislocation otherwise. Partially seen rahel projecting over the mid on lateral view. There is periprosthetic lucency. Soft tissues: Small joint effusion. IMPRESSION: Possible avulsion fracture and/or enthesopathy at the olecranon. Small joint effusion. Partially seen rahel projecting over the mid on lateral view. There is periprosthetic lucency. Agree with preliminary report. Reviewed by: Mikhail Steward MD on 12/23/2023 8:36 AM PDT Approved by: Mikhail Steward MD on 12/23/2023 8:36 AM PDT Station ID: [id number]
== END 2023-12-23 06:17 | disposition home or self-care (01) ==
LOC: EDUNIT# → ED 00:47
DX: S43.015A Anterior dislocation of left humerus, initial encounter (principal); S52.022A Displaced fracture of olecranon process without intraarticular extension of left ulna, initial encounter for closed fracture; W19.XXXA Unspecified fall, initial encounter; Y93.89 Activity, other specified; R25.1 Tremor, unspecified
CPT/HCPCS: 23650; 29125; 36415; 73020; 73030; 73070; 80048; 85025; 96374; 99152; 99153; 99284; 99285; J1170; J8499

== ENCOUNTER 2024-01-27 07:18 | Outpatient (CLI) | payer MEDICARE, MEDICAID ==
[2024-01-27 11:57] LABS: BASOPHILS # (AUTO) 0.1 10^3/uL (0.0-0.1); EOSINOPHILS # (AUTO) 0.4 10^3/uL (0.0-0.7); EOSINOPHILS % (AUTO) 8.6 %; HCT - HEMATOCRIT 34.3 % (42.0-52.0); HGB - HEMOGLOBIN 11.6 g/dL (14.0-18.0); LYMPHOCYTES # (AUTO) 1.5 10^3/uL (1.5-3.5); LYMPHOCYTES % (AUTO) 29.9 %; MEAN CORPUSCULAR HGB CONC 33.8 g/dL (32.0-36.0); MEAN CORPUSCULAR VOLUME 88.6 fL (80.0-94.0); MEAN PLATELET VOLUME 9.5 fL (7.4-11.4); MONOCYTES # (AUTO) 0.6 10^3/uL (0.0-1.0); MONOCYTES % (AUTO) 11.4 %; NEUTROPHILS # (AUTO) 2.4 10^3/uL (1.5-6.6); NEUTROPHILS % (AUTO) 48.9 %; PLT - PLATELET COUNT 355 10^3/uL (130-450); RED BLOOD COUNT 3.87 10^6/uL (4.70-6.10); RED CELL DISTRIBUTION WIDTH 16.7 % (12.0-15.0)
[2024-01-27 12:14] LABS: % IRON SATURATION 9 % (20-50); ALBUMIN 4.7 g/dL (3.2-5.5); ALBUMIN/GLOBULIN RATIO 1.5 (1.0-2.2); ALKALINE PHOSPHATASE 75 IU/L (42-121); ALT ALANINE AMINOTRANSFERASE 13 IU/L (10-60); AST ASPARTATE AMINOTRANSFERASE 24 IU/L (10-42); BILIRUBIN,TOTAL 0.6 mg/dL (0.2-1.0); BUN - BLOOD UREA NITROGEN 12 mg/dL (6-20); CALCIUM 9.8 mg/dL (8.5-10.3); CARBON DIOXIDE - CO2 28 mmol/L (21-32); CHLORIDE 99 mmol/L (101-111); CHOL/HDL RATIO 1.7 (<5.0); CHOLESTEROL 229 mg/dL; CREATININE 0.7 mg/dL (0.6-1.3); GFR - MDRD 115 (>89); GLUCOSE 90 mg/dL (74-104); HDL CHOLESTEROL 138 mg/dL; IRON 52 ug/dL (50-212); LDL CHOLESTEROL,CALCULATED 81 mg/dL; LDL/HDL RATIO 0.6 (<3.6); POTASSIUM 3.9 mmol/L (3.5-4.5); SODIUM 135 mmol/L (135-145); TOTAL IRON BINDING CAPACITY 552 ug/dL (250-450); TOTAL PROTEIN 7.8 g/dL (6.4-8.9); TRANSFERRIN 394 mg/dL (203-362); TRIGLYCERIDES 50 mg/dL; VLDL CHOLESTEROL 10 mg/dL
[2024-01-27 12:23] LABS: THYROID STIMULATING HORMONE 2.54 uIU/mL (0.34-5.60)
[2024-01-27 12:32] LABS: FERRITIN 20.4 ng/mL (23.9-336.2)
== END 2024-01-27 07:19 | disposition home or self-care (01) ==
LOC: LAB.N 07:18
PROVIDERS: ATTEND Physician Assistant
DX: K74.60 Unspecified cirrhosis of liver (principal); Z13.220 Encounter for screening for lipoid disorders; D50.9 Iron deficiency anemia, unspecified; E03.9 Hypothyroidism, unspecified
CPT/HCPCS: 36415; 80053; 80061; 82607; 82728; 82746; 83540; 83721; 84439; 84443; 84466; 85025

== ENCOUNTER 2024-01-27 19:01 | Emergency (ER) | payer MEDICARE, MEDICAID ==
--- NOTE | 2024-01-27 19:57 | XRAY Report ---
PROCEDURE: Shoulder 2+V LT INDICATIONS: FELL/DISLOCATED/PAIN L SHOULDER TECHNIQUE: 3 views of the shoulder were acquired. COMPARISON: 12/23/2023. FINDINGS: Bones: Anterior, inferior dislocation of the left humeral head relative to the glenoid. No definite fracture seen. Possible Hill-Sachs deformity as before. No suspicious bony lesions. Visualized ribs appear intact with healed rib fracture deformities. Soft tissues: No suspicious soft tissue calcifications. The visualized lungs are within normal limi ts. IMPRESSION: Anterior, inferior shoulder dislocation. No definite fracture seen. Reviewed by: Treamine Lay MD on 01/27/2024 7:55 PM PDT Approved by: Tremaine Lay MD on 01/27/2024 7:55 PM PDT Station ID: [id number]
[2024-01-27] MEDS: HYDROmorphone 1 MG/ML CARPUJECT IVP STA (20:13)
[2024-01-27] MEDS: SODIUM CHLORIDE 0.9% 1,000 ML IV STA (20:14)
[2024-01-27] MEDS: PROPOFOL 200 MG/20 ML VIAL IVP STA (20:36)
--- NOTE | 2024-01-27 21:14 | XRAY Report ---
PROCEDURE: Shoulder 2+V LT INDICATIONS: post-reduction TECHNIQUE: 3 views of the shoulder were acquired. COMPARISON: Same day. FINDINGS: Bones: Glenohumeral joint appears appropriately aligned. No definite fractures are seen. No suspici ous bony lesions. Visualized ribs appear intact. Old left-sided rib fractures. Soft tissues: No suspicious soft tissue calcifications. The visualized lungs are within normal limi ts. IMPRESSION: Glenohumeral joint appears appropriately aligned status post reduction. No definite fractures seen. Reviewed by: Pino Berman MD on 01/27/2024 9:12 PM PDT Approved by: Pino Berman MD on 01/27/2024 9:12 PM PDT Station ID: [id number]
--- NOTE | 2024-01-27 21:20 | ED Physician Documentation ---
PD HPI UPPER EXT INJURY - Stated complaint Stated Complaint: LT SHOULDER PX - Chief complaint Chief Complaint: Ext Problem - History obtained from History obtained from: Patient, EMS - Additonal information Additional information: The pt is brought to the ED for CC of L shoulder dislocation after tripping and falling while walking on uneven ground. No other injuries. The pt has had dislocation of this shoulder 2 other times in the past 8 months. No numbness or tingling in L hand. PD PAST MEDICAL HISTORY - Past Medical History Past Medical History: Yes Cardiovascular: Hypertension, High cholesterol, Other Respiratory: Sleep apnea, CPAP use Neuro: Headaches, Other Endocrine/Autoimmune: Other GI: GERD, Pancreatitis, Cirrhosis : Incontinence HEENT: None Psych: Depression, Anxiety, Panic attacks, Claustrophobia Musculoskeletal: Osteoarthritis Derm: None - Past Surgical History Past Surgical History: Yes Ortho: Hip replacement, Arthroscopic surgery HEENT: Tracheostomy - Present Medications Home Medications: Ambulatory Orders Medication Instructions Recorded Confirmed Cholecalciferol [Vitamin D3] 1,000 units PO DAILY 01/17/20 06/21/23 Multivitamin W/Minerals [Theragran 1 each PO DAILY 01/17/20 06/21/23 M] Pantoprazole Sodium 40 mg PO DAILY 06/14/20 06/21/23 Gabapentin [Neurontin] 800 mg PO TID 11/23/20 06/21/23 Folic Acid/Vit B Complex and C 1 tab PO DAILY 11/24/20 06/21/23 [B-Complex with Vit C Tablet] Thiamine [Vitamin B-1] 100 mg PO DAILY #30 tablet 12/15/20 06/21/23 Lipase/Protease/Amylase [Creon Dr 1 each PO TIDWM 02/12/23 06/21/23 12,000 Units Capsule] Trazodone HCl 100 - 200 mg PO HS PRN 02/12/23 06/21/23 HYDROmorphone [Dilaudid] 2 mg PO Q6H PRN #15 tablet 03/21/23 06/21/23 LORazepam [Ativan] 1 mg PO TID PRN #6 tablet 10/06/23 - Allergies Allergies/Adverse Reactions: Allergies Allergy/AdvReac Type Severity Reaction Status Date / Time lisinopril Allergy Severe Anaphylaxis Verified 01/27/24 20:15 - Social History Does the pt smoke?: No Smoking Status: Never smoker Does the pt drink ETOH?: Yes Does the pt have substance abuse?: No - Immunizations Immunizations are current?: Yes Immunizations: Other immun not current - POLST Patient has POLST: No POLST Status: Full Code (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 Caving inferior to glenoid rim with empty socket) - Neuro Neuro: 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 - Psych Psych: Normal mood, Normal affect Results - Vitals Vitals: Oxygen O2 Source Room air - Rads (name of study) L shoulder XR series Relevant Findings:: Final report received, See rad report (anterior dislocation) L shoulder XR post-reduction Relevant Findings:: Final report received, See rad report (interval reduction) Procedures - Reduction Body part reduced: Left, Shoulder Fracture or dislocation: Dislocation Anesthesia: Other (propofol) Shoulder reduction technique: Traction - counter tract Reduction aftercare: NV intact, Xray confirms reduction, Alignment improved, Sling, Patient tolerated well - Procedural sedation Sedation prep: Informed consent, Time out completed, PE performed, ASA 1 - healthy, IV O2 monitor, RT present Sedation Medications: propofol Mallampati classification: I Patient status during sedation: Unresponsive Sedation recovery: Recovered uneventfully, Back to baseline Time in sedation (Minutes): 10 PD Medical Decision Making - ED course Complexity details: reviewed old records, reviewed results, re-evaluated patient, considered differential, d/w patient ED course: The pt was found to have a shoulder dislocation, which was reduced as above. We have discussed the need for follow-up with ortho again to discuss a plan for treatment of the recurrent dislocations. Pt was fully recovered from sedation upon discharge with sober ride. Departure - Departure Disposition: 01 Home, Self Care Clinical Impression: Anterior shoulder dislocation Qualifiers: Encounter type: initial encounter Laterality: left Qualified Code(s): S43.015A - Anterior dislocation of left humerus, initial encounter Condition: Stable Instructions: ED Immobilizer Shoulder Follow-Up: Marco Miranda MD [Provider Admit Priv/Credential] - Comments: Your left shoulder was dislocated but was easily put back in place under sedation tonight. You should not drive for the next 12 hours. You will need to wear the sling for the next week. Please follow-up with orthopedics as soon as possible for your recurrent left shoulder dislocations. Please avoid any activities where you have a high probability of fall, especially walking on uneven surfaces like [place]. Forms: PCP List Discharge Date/Time: 01/27/24 22:08
[2024-01-27] MEDS: HYDROcod/ACETAM 5/325 MG TABLET PO STA (21:56)
[2024-01-27 22:12] VITALS: BP 141/101; O2SAT 96
== END 2024-01-27 22:08 | disposition home or self-care (01) ==
LOC: ED 19:01
DX: S43.015A Anterior dislocation of left humerus, initial encounter (principal); W01.0XXA Fall on same level from slipping, tripping and stumbling without subsequent striking against object, initial encounter; Y93.01 Activity, walking, marching and hiking; Y92.832 Beach as the place of occurrence of the external cause; K74.60 Unspecified cirrhosis of liver; Z13.220 Encounter for screening for lipoid disorders; D50.9 Iron deficiency anemia, unspecified; E03.9 Hypothyroidism, unspecified
CPT/HCPCS: 23650; 36415; 73030; 80053; 80061; 82607; 82728; 82746; 83540; 84439; 84443; 84466; 85025; 96374; 99152; 99284; 99285; A9270; J1170; 83721

== ENCOUNTER 2024-03-22 20:43 | Inpatient (IN) ==
--- NOTE | 2024-03-22 20:52 | ED Physician Documentation ---
History of Present Illness Stated complaint Stated Complaint: OD Chief complaint Chief Complaint: Neuro Additonal information Additional information: He has a history of alcohol abuse, Guillain-Atwood syndrome. His mom called 911 today. He lives with her.. He was obtunded and slid off the couch. He responded to Narcan on scene and reportedly told medics he used oxycodone tonight. The only meds that were with him that were loratadine, gabapentin, and a PPI. He arrives very somnolent with a nasal trumpet in place. No history is available from the patient. Meds/Allgy Home Medications Ambulatory Orders Medication Instructions Recorded Confirmed cholecalciferol (vitamin D3) 25 1,000 units PO DAILY 01/17/20 06/21/23 mcg (1,000 unit) tablet bijdfoehlgxl-dxrtgwvb-wskv 1 ea PO DAILY 01/17/20 06/21/23 fumarate 19 mg-folic acid 400 mcg tablet (Therapeutic-M) pantoprazole 40 mg tablet,delayed 40 mg PO DAILY 06/14/20 06/21/23 release gabapentin 800 mg tablet 800 mg PO TID 11/23/20 06/21/23 (Neurontin) vitamin B complex-vitamin C-folic 1 tab PO DAILY 11/24/20 06/21/23 acid 400 mcg tablet thiamine mononitrate (vit B1) 100 100 mg PO DAILY #30 tabs 12/15/20 06/21/23 mg tablet (Vitamin B-1 (mononitrate)) stbfdc-azpmiotj-dqyaxrz 1 ea PO TIDWM 02/12/23 06/21/23 12,000-38,000-60,000 unit capsule,delayed rel (Creon) trazodone 100 mg tablet 100 - 200 mg PO HS PRN Insomnia 02/12/23 06/21/23 hydromorphone 2 mg tablet 2 mg PO Q6H PRN Pain #15 tabs 03/21/23 06/21/23 lorazepam 1 mg tablet 1 mg PO TID PRN Anxiety #6 tabs 10/06/23 Allergies Allergies Allergy/AdvReac Type Severity Reaction Status Date / Time lisinopril Allergy Severe Anaphylaxis Verified 03/14/24 20:35 PFSH Social History Social History Smoking Status: Never smoker If you are a former smoker, when did you quit? (Date/Year): 2009 Number of Years Smoked: 1 How many cigarettes a day do you smoke? 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 He will arouse briefly to vigorous stimulus and then falls right back asleep. He has a nasal trumpet in the right nares which he is tolerating and on supplemental oxygen with good sats. HENMT head/scalp atraumatic Neck/C-Spine cervical spine nontender Respiratory breath sounds equal bilaterally Cardiovascular normal heart rate noted and regular rhythm noted Gastrointestinal abdomen soft to palpation and nontender to palpation Neurology GCS calculation - (GCS 9) Results Vitals Vitals: Vital Signs - 24 hr 03/22/24 20:51 03/22/24 21:16 03/22/24 21:18 Temperature 36.3 C L Temperature Source Temporal Artery Scan Pulse Rate 99 H Respiratory Rate 9 L Blood Pressure 118/80 O2 Saturation 97 Oxygen Delivery Method Nasal Cannula Nasal Cannula O2 Source Nasal cannula Oxygen Flow Rate 2 If not protocol: Oxygen Flow, liters/minute 5 2 Pain Intensity 0 03/22/24 21:25 03/22/24 21:30 03/22/24 22:04 Temperature Temperature Source Pulse Rate 91 H 92 H 89 Respiratory Rate 10 L 11 L 10 L Blood Pressure 115/70 122/80 O2 Saturation 93 94 97 Oxygen Delivery Method O2 Source Nasal cannula Nasal cannula Nasal cannula Oxygen Flow Rate If not protocol: Oxygen Flow, liters/minute 2 2 2 Pain Intensity 0 0 0 Oxygen O2 Source Nasal cannula Oxygen Flow Rate 2 EKG (time done) 2052: EKG releavant findings:: EKG personally interpreted by author of this note. Relevant findings are: Twelve-lead EKG done at 2052 hrs. discloses normal sinus rhythm with a rate of 97. He has submillimeter inferior ST elevation with AR depression. Labs Labs: Laboratory Tests 03/22/24 03/22/24 20:59 21:37 WBC 5.4 RBC 3.34 L Hgb 9.7 L Hct 31.1 L MCV 93.1 MCH 29.0 MCHC 31.2 L RDW 19.2 H Plt Count 163 MPV 8.6 Neut # (Auto) 3.8 Lymph # (Auto) 0.8 L [place] # (Auto) 0.4 Eos # (Auto) 0.3 Baso # (Auto) 0.0 Absolute Nucleated RBC 0.00 Nucleated RBC % 0.0 Sodium 139 Potassium 3.5 Chloride 106 Carbon Dioxide 26 Anion Gap 7.0 BUN 15 Creatinine 0.9 Estimated GFR (MDRD) 86 L Glucose 107 H Calcium 8.8 Magnesium 1.6 L Total Bilirubin 0.3 AST 28 ALT 16 Alkaline Phosphatase 69 Total Creatine Kinase 100 Total Protein 6.6 Albumin 4.0 Globulin 2.6 Albumin/Globulin Ratio 1.5 Lipase 16 TSH 1.24 Urine Color YELLOW Urine Clarity CLEAR Urine pH 6.0 Ur Specific [place] 1.020 Urine Protein NEGATIVE Urine Glucose (UA) NEGATIVE Urine Ketones NEGATIVE Urine Occult Blood TRACE-INTA Urine Nitrite NEGATIVE Urine Bilirubin NEGATIVE Urine Urobilinogen 0.2 (NORMAL) Ur Leukocyte Esterase TRACE H Urine RBC 6-10 H Urine WBC 4-5 Ur Squamous Epith Cells RARE Squamous Urine Bacteria Rare Ur Microscopic Review INDICATED Urine Culture Comments INDICATED Salicylates < 1.5 Urine Opiates Screen POSITIVE H Ur Buprenorphine Scrn NEGATIVE Ur Oxycodone Screen POSITIVE H Urine Methadone Screen NEGATIVE Acetaminophen 41.5 H* Ur Barbiturates Screen NEGATIVE Ur Tricyclics Screen NEGATIVE Ur Phencyclidine Scrn NEGATIVE Ur Amphetamine Screen NEGATIVE U Methamphetamines Scrn NEGATIVE U Benzodiazepines Scrn POSITIVE H Urine Cocaine Screen NEGATIVE U Cannabinoids Screen POSITIVE H Ur Drug Screen Comment CUTOFF CONC BELOW: Ethyl Alcohol 61.6 Rads (name of study) Ct Head- NAD: Relevant Findings:: Final report received and EMP independent interpretation of test PD Medical Decision Making ED course ED course: He presents with potential drug overdose. He is breathing slowly but arousable and not needing respiratory support other than nasal cannula. Workup demonstrates a normal CBC, normal CMP, basically negative urinalysis. Toxicology testing was positive for blood alcohol of 61, acetaminophen of 41, and positive urine opiates, oxycodone, benzodiazepine, and cannabinoids. I discussed the case by phone with poison control and given the unknown time of ingestion they do recommend treatment with N-acetylcysteine and I spoke with the hospitalist for admission at 10:12 PM. Discharge Plan Discharge Patient Disposition: 66 [facility] DC/Xfer Condition: Serious Interventions: ED Admission Assessment Last Done: 03/22/24 22:43
[2024-03-22 21:04] LABS: BASOPHILS % (AUTO) 0.6 %; EOSINOPHILS # (AUTO) 0.3 10^3/uL (0.0-0.7); EOSINOPHILS % (AUTO) 6.3 %; HCT - HEMATOCRIT 31.1 % (42.0-52.0); HGB - HEMOGLOBIN 9.7 g/dL (14.0-18.0); LYMPHOCYTES # (AUTO) 0.8 10^3/uL (1.5-3.5); LYMPHOCYTES % (AUTO) 14.2 %; MEAN CORPUSCULAR HGB CONC 31.2 g/dL (32.0-36.0); MEAN CORPUSCULAR VOLUME 93.1 fL (80.0-94.0); MEAN PLATELET VOLUME 8.6 fL (7.4-11.4); MONOCYTES # (AUTO) 0.4 10^3/uL (0.0-1.0); MONOCYTES % (AUTO) 8.1 %; NEUTROPHILS # (AUTO) 3.8 10^3/uL (1.5-6.6); NEUTROPHILS % (AUTO) 70.4 %; PLT - PLATELET COUNT 163 10^3/uL (130-450); RED BLOOD COUNT 3.34 10^6/uL (4.70-6.10); RED CELL DISTRIBUTION WIDTH 19.2 % (12.0-15.0); WHITE BLOOD COUNT 5.4 x10^3/uL (4.8-10.8)
[2024-03-22 21:33] LABS: THYROID STIMULATING HORMONE 1.24 uIU/mL (0.34-5.60)
--- NOTE | 2024-03-22 21:42 | CT Report ---
PROCEDURE: CT Head WO INDICATIONS: ams TECHNIQUE: Noncontrast 4.5 mm thick angled axial sections acquired from the foramen magnum to the vertex. For r adiation dose reduction, the following was used: automated exposure control, adjustment of mA and/or kV according to patient size. COMPARISON: CT head without contrast 06/21/2023 FINDINGS: Image quality: Excellent. CSF spaces: Basal cisterns are patent. No extra-axial fluid collections. Ventricles are normal in size and shape. Brain: No midline shift. No intracranial masses or hemorrhage. Muhammad-white matter interface is norm al. Intracranial atherosclerosis is present. Skull and face: Calvarium and visualized facial bones are intact, without suspicious lesions. Sinuses: Partial opacification of the anterior ethmoid air cells and sphenoid sinuses. Visualized si nuses and mastoids are otherwise clear. IMPRESSION: No acute intracranial abnormality. Reviewed by: Scooby Rodriguez MD on 03/22/2024 9:41 PM PDT Approved by: Scooby Rodriguez MD on 03/22/2024 9:41 PM PDT Station ID: [id number]
[2024-03-22 21:49] LABS: ALBUMIN/GLOBULIN RATIO 1.5 (1.0-2.2); ALKALINE PHOSPHATASE 69 IU/L (42-121); ALT ALANINE AMINOTRANSFERASE 16 IU/L (10-60); AST ASPARTATE AMINOTRANSFERASE 28 IU/L (10-42); BILIRUBIN,TOTAL 0.3 mg/dL (0.2-1.0); BUN - BLOOD UREA NITROGEN 15 mg/dL (6-20); CALCIUM 8.8 mg/dL (8.5-10.3); CARBON DIOXIDE - CO2 26 mmol/L (21-32); CHLORIDE 106 mmol/L (101-111); CK- CREATINE KINASE 100 IU/L (30-223); CREATININE 0.9 mg/dL (0.6-1.3); ETOH - ETHANOL 61.6 mg/dL; GFR - MDRD 86 (>89); GLUCOSE 107 mg/dL (74-104); LIPASE 16 U/L (11-82); MAGNESIUM 1.6 mg/dL (1.7-2.3); POTASSIUM 3.5 mmol/L (3.5-4.5); SODIUM 139 mmol/L (135-145); TOTAL PROTEIN 6.6 g/dL (6.4-8.9)
[2024-03-22 21:50] LABS: BILIRUBIN,URINE NEGATIVE (NEGATIVE); GLUCOSE, URINE (UA) NEGATIVE (NEGATIVE); KETONES,URINE (UA) NEGATIVE (NEGATIVE); LEUKOCYTE ESTERASE, URINE TRACE (NEGATIVE); NITRITE,URINE NEGATIVE (NEGATIVE); OCCULT BLOOD,URINE TRACE-INTA (NEGATIVE); PROTEIN,URINE NEGATIVE (NEGATIVE); UROBILINOGEN,URINE 0.2 (NORMAL) E.U./dL (NORMAL)
[2024-03-22 21:54] LABS: ACETAMINOPHEN 41.5 ug/mL; SALICYLATE < 1.5 mg/dL
[2024-03-22 22:09] LABS: CLARITY,URINE CLEAR (CLEAR)
[2024-03-22 22:10] LABS: AMPHETAMINE SCREEN,URINE NEGATIVE (NEGATIVE); BACTERIA,URINE Rare /HPF (None Seen); BARBITURATE SCREEN,UR NEGATIVE (NEGATIVE); BENZODIAZEPINES SCREEN, URINE POSITIVE (NEGATIVE); BUPRENORPHINE SCREEN, URINE NEGATIVE (NEGATIVE); COCAINE SCREEN URINE NEGATIVE (NEGATIVE); METHADONE SCREEN, URINE NEGATIVE (NEGATIVE); METHAMPHETAMINES SCREEN, URINE NEGATIVE (NEGATIVE); OPIATE SCREEN, URINE POSITIVE (NEGATIVE); OXYCODONE SCREEN, URINE POSITIVE (NEGATIVE); SQUAMOUS EPITHELIAL CELL,UR RARE Squamous (<= Few); THC CANNABINOID SCREEN, URINE POSITIVE (NEGATIVE); TRICYCLIC ANTIDEPRESSANT,URINE NEGATIVE (NEGATIVE)
[2024-03-22] MEDS ORDERED: SODIUM CHLORIDE FLUSH 0.9% 10 ML SYRINGE IVP PRN (22:16)
[2024-03-22] MEDS ORDERED: ONDANSETRON 4 MG/2 ML VIAL IVP PRN (22:16)
[2024-03-22] MEDS: ACETYLCYSTEINE IV STA (22:25)
[2024-03-22] MEDS: DEXTROSE 5% IV STA (22:25)
--- NOTE | 2024-03-22 22:28 | HISTORY & PHYSICAL EXAMINATION ---
Chief Complaint Chief Complaint Chief Complaint: AMS History of Present Illness History of Present Illness HPI Comment/Other: 59 Y old male with PMH Alcohol abuse, alcoholic liver disease BIBA due to AMS. Pt is sleepy at this time so most of history is from ER physician As per ER physician, patient mother called EMS as he was found unresponsive in [place]ouch. Pt was given Narcan with some response. CT head neg Acetaminophen level 41 Poison control was consulted who recommended N acetylcysteine which has been ordered Pt is admitted due to Drug overdose, tylenol toxicity, AMS, acute encephalopathy Review of Systems Status of ROS: unobtainable due to medical condition PFSH Social History Social History Smoking Status: Never smoker If you are a former smoker, when did you quit? (Date/Year): 2009 Number of Years Smoked: 1 How many cigarettes a day do you smoke? 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.) Meds/Allgy Home Medications Ambulatory Orders Medication Instructions Recorded Confirmed cholecalciferol (vitamin D3) 25 1,000 units PO DAILY 01/17/20 06/21/23 mcg (1,000 unit) tablet qprlpsntbgtu-tmkansli-fhde 1 ea PO DAILY 01/17/20 06/21/23 fumarate 19 mg-folic acid 400 mcg tablet (Therapeutic-M) pantoprazole 40 mg tablet,delayed 40 mg PO DAILY 06/14/20 06/21/23 release gabapentin 800 mg tablet 800 mg PO TID 11/23/20 06/21/23 (Neurontin) vitamin B complex-vitamin C-folic 1 tab PO DAILY 11/24/20 06/21/23 acid 400 mcg tablet thiamine mononitrate (vit B1) 100 100 mg PO DAILY #30 tabs 12/15/20 06/21/23 mg tablet (Vitamin B-1 (mononitrate)) upxbii-qxjpnych-zgyrftw 1 ea PO TIDWM 02/12/23 06/21/23 12,000-38,000-60,000 unit capsule,delayed rel (Creon) trazodone 100 mg tablet 100 - 200 mg PO HS PRN Insomnia 02/12/23 06/21/23 hydromorphone 2 mg tablet 2 mg PO Q6H PRN Pain #15 tabs 03/21/23 06/21/23 lorazepam 1 mg tablet 1 mg PO TID PRN Anxiety #6 tabs 10/06/23 Allergies Allergies Allergy/AdvReac Type Severity Reaction Status Date / Time lisinopril Allergy Severe Anaphylaxis Verified 03/14/24 20:35 Exam Constitutional Pt in sleepy, difficult to arouse HENMT normocephalic Chest inspection of chest normal Respiratory breath sounds equal bilaterally Cardiovascular normal heart rate noted Gastrointestinal nontender to palpation Extremities no tenderness Neurology pt is confused Skin no rash Conclusion/Plan Problem List (1) Tylenol overdose: Plan A: AMS Acute encephalopathy Drug overdose Tylenol toxicity Alcohol abuse Alcoholic liver disease Plan: Admit in tele cont cardiac monitoring N acetylcysteine per protocol NPO Swallow evalutaion Start NS @ 100 cc/h monitor mental status Neuro checks DVT prophylaxic: SCD Full code Pt is admitted as inpatient as more than 2 midnight stay is expected Lab Results 03/22/24 20:59 03/22/24 20:59
[2024-03-23] MEDS: SODIUM CHLORIDE 0.9% 1,000 ML IV SCH (00:17)
[2024-03-23] MEDS: SODIUM CHLORIDE FLUSH 0.9% 10 ML SYRINGE IVP SCH (00:22)
[2024-03-23] MEDS: NALOXONE 0.4 MG/ML VIAL IVP ONE ×2 (02:25→05:25)
[2024-03-23] MEDS: DEXTROSE 5% IV ONE (04:53)
[2024-03-23] MEDS: ACETYLCYSTEINE IV ONE (04:53)
[2024-03-23] MEDS: IPRATROPIUM/ALBUTEROL 3 ML NEB INH ONE (05:45)
[2024-03-23 05:52] LABS: BASOPHILS % (AUTO) 0.4 %; EOSINOPHILS # (AUTO) 0.3 10^3/uL (0.0-0.7); EOSINOPHILS % (AUTO) 6.6 %; HCT - HEMATOCRIT 31.3 % (42.0-52.0); LYMPHOCYTES # (AUTO) 0.9 10^3/uL (1.5-3.5); LYMPHOCYTES % (AUTO) 17.4 %; MEAN CORPUSCULAR HEMOGLOBIN 29.1 pg (27.0-31.0); MEAN CORPUSCULAR HGB CONC 31.9 g/dL (32.0-36.0); MEAN PLATELET VOLUME 9.3 fL (7.4-11.4); MONOCYTES # (AUTO) 0.5 10^3/uL (0.0-1.0); MONOCYTES % (AUTO) 10.4 %; NEUTROPHILS # (AUTO) 3.3 10^3/uL (1.5-6.6); PLT - PLATELET COUNT 169 10^3/uL (130-450); RED BLOOD COUNT 3.44 10^6/uL (4.70-6.10); RED CELL DISTRIBUTION WIDTH 18.9 % (12.0-15.0); WHITE BLOOD COUNT 5.1 x10^3/uL (4.8-10.8)
[2024-03-23 06:42] LABS: ALBUMIN 3.8 g/dL (3.2-5.5); ALBUMIN/GLOBULIN RATIO 1.5 (1.0-2.2); BILIRUBIN,TOTAL 0.4 mg/dL (0.2-1.0); CALCIUM 8.7 mg/dL (8.5-10.3); CREATININE 0.7 mg/dL (0.6-1.3); POTASSIUM 3.7 mmol/L (3.5-4.5); TOTAL PROTEIN 6.3 g/dL (6.4-8.9)
[2024-03-23] MEDS: FERROUS SULFATE 325 MG TABLET PO SCH (12:32)
[2024-03-23] MEDS ORDERED: LORazepam 1 MG TABLET PO PRN (13:03)
[2024-03-23] MEDS ORDERED: LORazepam 2 MG/ML VIAL IVP PRN (13:03)
--- NOTE | 2024-03-23 13:04 | PHARMACY PROGRESS NOTE ---
Best Possible Medication History Admit Date and Time: 03/22/24 [id number] Processed by: Pharmacy Medications reviewed in ED?: No Medication History completed: Yes Patient Interview: Completed Secondary Source(s): Insurance records [facility] Statement: As the person ultimately responsible for medication therapy, providers are able to order a medication from an existing home medication list in [facility] via the "Reconcile Routine" prior to Confirmation of that medication by sales support representative. Such practice is discouraged except when the physician, in their clinical judgment, deems that a medical need exists for a medication without regard to previous use.
[2024-03-23] MEDS: chlordiazePOXIDE 25 MG CAPSULE PO SCH (13:25)
[2024-03-23 13:33] LABS: INR 1.3 (0.8-1.2); PT - PROTHROMBIN TIME 13.8 secs (9.9-12.6)
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
[2024-03-23] MEDS ORDERED: DICLOFENAC SODIUM 1% GEL 50 GM TUBE TOP PRN (16:33)
[2024-03-23] MEDS ORDERED: PROTEASE PO SCH (17:00)
[2024-03-23] MEDS ORDERED: AMYLASE PO SCH (17:00)
[2024-03-23] MEDS ORDERED: LIPASE PO SCH (17:00)
[2024-03-23] MEDS ORDERED: [UNRECOGNIZED DRUG - OTHER] PO SCH (17:00)
[2024-03-23] MEDS: oxyCODONE 5 MG TABLET PO PRN (17:21)
[2024-03-23] MEDS: LIPASE/PROTEASE/AMYLASE CAPSULE PO SCH (17:22)
[2024-03-23 20:00] LABS: INR 1.2 (0.8-1.2)
[2024-03-23] MEDS: MAGNESIUM OXIDE 400 MG TABLET PO SCH (20:25)
[2024-03-23] MEDS: CYCLOBENZAPRINE 10 MG TABLET PO PRN (20:25)
[2024-03-23 20:31] LABS: ACETAMINOPHEN 0.5 ug/mL; ALBUMIN/GLOBULIN RATIO 1.4 (1.0-2.2); BILIRUBIN,TOTAL 0.4 mg/dL (0.2-1.0); CALCIUM 9.4 mg/dL (8.5-10.3); CREATININE 0.6 mg/dL (0.6-1.3); POTASSIUM 3.4 mmol/L (3.5-4.5); TOTAL PROTEIN 6.9 g/dL (6.4-8.9)
[2024-03-23] MEDS: GABAPENTIN 300 MG CAPSULE PO SCH (21:28)
[2024-03-24 05:43] LABS: BASOPHILS % (AUTO) 0.5 %; EOSINOPHILS # (AUTO) 0.3 10^3/uL (0.0-0.7); EOSINOPHILS % (AUTO) 8.9 %; HGB - HEMOGLOBIN 10.8 g/dL (14.0-18.0); LYMPHOCYTES # (AUTO) 1.1 10^3/uL (1.5-3.5); LYMPHOCYTES % (AUTO) 28.2 %; MEAN CORPUSCULAR HEMOGLOBIN 29.3 pg (27.0-31.0); MEAN CORPUSCULAR HGB CONC 32.7 g/dL (32.0-36.0); MEAN CORPUSCULAR VOLUME 89.4 fL (80.0-94.0); MEAN PLATELET VOLUME 9.3 fL (7.4-11.4); MONOCYTES # (AUTO) 0.4 10^3/uL (0.0-1.0); MONOCYTES % (AUTO) 11.6 %; NEUTROPHILS # (AUTO) 1.9 10^3/uL (1.5-6.6); NEUTROPHILS % (AUTO) 50.5 %; PLT - PLATELET COUNT 181 10^3/uL (130-450); RED BLOOD COUNT 3.69 10^6/uL (4.70-6.10); WHITE BLOOD COUNT 3.8 x10^3/uL (4.8-10.8)
[2024-03-24 06:02] LABS: CALCIUM 9.4 mg/dL (8.5-10.3); CREATININE 0.6 mg/dL (0.6-1.3); MAGNESIUM 1.5 mg/dL (1.7-2.3); PHOSPHORUS 3.2 mg/dL (2.5-5.0); POTASSIUM 3.3 mmol/L (3.5-4.5)
[2024-03-24] MEDS: PANTOPRAZOLE 40 MG TABLET PO SCH (06:09)
[2024-03-24] MEDS: CHOLECALCIFEROL 25 MCG TABLET PO SCH (08:56)
[2024-03-24] MEDS: MAGNESIUM OXIDE 400 MG TABLET PO SCH (08:56)
[2024-03-24] MEDS: POTASSIUM CHLORIDE 20 MEQ TABLET PO SCH (08:56)
[2024-03-24] MEDS: THIAMINE 100 MG TABLET PO SCH (08:56)
[2024-03-24] MEDS: PRENATAL VITAMIN TABLET PO SCH (08:56)
[2024-03-24] MEDS ORDERED: B COMPLEX VITAMIN C FOLIC ACID PO SCH (09:00)
[2024-03-24] MEDS ORDERED: MULTIVITAMIN W/MINERALS TABLET PO SCH (09:00)
[2024-03-24] MEDS ORDERED: THIAMINE 100 MG TABLET PO SCH (09:00)
[2024-03-24] MEDS: KETOROLAC 15 MG/ML VIAL IVP PRN (12:37)
[2024-03-24 12:40] VITALS: O2SAT 97
--- NOTE | 2024-03-24 12:52 | Discharge Summary ---
"Discharge Summary Admit Date: 03/22/24 Discharge Date: 03/24/24 Discharging Provider: Christine Zavala PA-C Primary Care Provider: Juani Code Status: Attempt Resuscitation DIAGNOSES Admission Diagnoses: Altered mental status Acute encephalopathy Drug overdose Tylenol toxicity Alcohol abuse Alcoholic liver disease Discharge Diagnoses with Status of Each Condition: (1) Tylenol overdose: Impression: Polysubstance overdose including opiates, benzos, Tylenol NAC protocol was stopped per poison control on HD#2 Encephalopathy has resolved (2) Alcohol withdrawal: Impression: Drinks 0.75-1.5 of a 750mL bottle of liquor/day I have discharged him to home on a librium taper, and have cautioned him about taking this while drinking. he understands the need for sobriety and has a plan regarding how to achieve it. HPI History of Present Illness: 59 Y old male with PMH Alcohol abuse, alcoholic liver disease BIBA due to AMS. Pt is sleepy at this time so most of history is from ER physician As per ER physician, patient mother called EMS as he was found unresponsive in [place]. Pt was given Narcan with some response. CT head neg Acetaminophen level 41 Poison control was consulted who recommended N acetylcysteine which has been ordered Pt is admitted due to Drug overdose, tylenol toxicity, AMS, acute encephalopathy CONSULTS | PROCEDURES Consultations: none Procedures: Head CT: No acute intracranial abnormality. HOSPITAL COURSE Hospital Course: Admitted with altered mental status secondary to polysubstance overdose to include opiates, benzodiazepines and Tylenol. Patient has a history of heavy alcohol use consuming 3/4-1-1/2 of a 750 mL bottle of liquor per day. He states that he is a binge drinker. Over the last month has been quite a heavy drinker after sustaining an injury to his left shoulder. With regards to his Tylenol use, he was started on N-acetylcysteine per protocol. This was discontinued on hospital day 2. With regards to the left shoulder injury he is seen by orthopedics at the [facility] and has been able to start to obtain outpatient physical therapy here on [facility]. In any event over the last month has been drinking quite heavily and has also been prescribed pain pills. States he lost track of how many pain pills he had taken and quite suddenly found himself in the hospital. There were concerns regarding alcohol withdrawal. He has been started on Librium with Ativan as needed. He has not required any Ativan. He would like to discharge home. He states that he will stop drinking alcohol. He was cautioned regarding co-ingestion of alcohol and Librium. He was also cautioned regarding opiate use. He was discharged to home in stable condition. Where he lives with his 84-year-old mother. He will follow-up with his primary care provider within the next 7 to 10 days. He was counseled on the importance of primary care follow- up. Additionally he has a plan for sobriety. [place] [facility] He will reengage with the services. He has been seen by social work and counseled on this. ALLERGIES Allergies Allergy/AdvReac Type Severity Reaction Status Date / Time lisinopril Allergy Severe Anaphylaxis Verified 03/14/24 20:35 MEDICATIONS Ambulatory Orders Medication Instructions Recorded Confirmed cholecalciferol (vitamin D3) 25 1,000 units PO DAILY 01/17/20 03/23/24 mcg (1,000 unit) tablet [id number] 1 ea PO DAILY 01/17/20 03/23/24 fumarate 19 mg-folic acid 400 mcg tablet (Therapeutic-M) pantoprazole 40 mg tablet,delayed 40 mg PO DAILY 06/14/20 03/23/24 release vitamin B complex-vitamin C-folic 1 tab PO DAILY 11/24/20 03/23/24 acid 400 mcg tablet thiamine mononitrate (vit B1) 100 100 mg PO DAILY #30 tabs 12/15/20 03/23/24 mg tablet (Vitamin B-1 (mononitrate)) gabapentin 600 mg tablet 600 mg PO TID 03/23/24 03/23/24 [id number] 1 cap PO TIDWM 03/23/24 03/23/24 6,000-19,000-30,000 unit capsule,delayed rel (Creon) magnesium oxide 400 mg (241.3 mg 400 mg PO HS 03/23/24 03/23/24 magnesium) tablet chlordiazepoxide HCl 25 mg capsule 25 mg PO UD #8 caps 03/24/24 diclofenac sodium 1 % topical gel 1 g topical QID PRN Mild Pain 03/24/24 (Arthritis Pain (diclofenac)) (Level 1-3) #100 grams ferrous sulfate 325 mg (65 mg 325 mg PO DAILYWM #30 tabs 03/24/24 iron) tablet potassium chloride 20 mEq 20 meq PO DAILYWM #30 tabs 03/24/24 tablet,extended release(part/cryst) (Klor-Con M) PHYSICAL EXAM AT DISCHARGE General Appearance: positive No acute distress and Alert Eyes Bilateral: positive Normal inspection ENT: positive ENT inspection nml Neck: positive Nml inspection Respiratory: positive No respiratory distress and Breath sounds nml Cardiovascular: positive Regular rate & rhythm Abdomen: positive Non-tender and No distention Back: positive Nml inspection Skin: positive Color nml and No rash Extremities: positive Other (arthritic changes at MCP joints of the hands. LROM left shoulder secondary to pain) Neurologic/Psychiatric: positive Oriented x3 LABS 03/24/24 05:24 03/24/24 05:24 SEPSIS Current Stage of Sepsis: Ruled out FOLLOW UP Follow Up: PCP: Juani TIME SPENT Time Spent in Discharge (Minutes): 30 Discharge Plan Discharge Patient Disposition: Home, Self Care Condition: Serious Prescriptions: New chlordiazepoxide HCl 25 mg Capsule 25 mg PO UD Qty: 8 0RF Rx Instructions: 1 tab twice today, then one tab every 8 hours on day 2, one tab every 12 hours on day 3, one tab daily on day 4 ferrous sulfate 325 mg (65 mg iron) Tablet 325 mg PO DAILYWM Qty: 30 0RF diclofenac sodium [Arthritis Pain (diclofenac)] 1 % Gel 1 g topical QID PRN (Reason: Mild Pain (Level 1-3)) Qty: 100 0RF potassium chloride [Klor-Con M20] 20 mEq Tablet,Er Particles/Crystals 20 meq PO DAILYWM Qty: 30 0RF Continued cholecalciferol (vitamin D3) 25 MCG tablet 1,000 units PO DAILY Patient Comments: obtained from meds that were brought with pt Therapeutic-M 1 TAB tablet 1 ea PO DAILY Patient Comments: obtained from meds that were brought with pt pantoprazole 40 MG tablet,delayed release (DR/EC) 40 mg PO DAILY Patient Comments: obtained from meds that were brought with pt B complex-vitamin C-folic acid 400 MCG tablet 1 tab PO DAILY Patient Comments: obtained from meds that were brought with pt thiamine mononitrate (vit B1) [Vitamin B-1 (mononitrate)] 100 MG tablet 100 mg PO DAILY Qty: 30 0RF gabapentin 600 mg tablet 600 mg PO TID Patient Comments: TAKE ONE TABLET BY MOUTH THREE TIMES DAILY Creon 6,000-19,000 -30,000 unit capsule,delayed release(DR/EC) 1 cap PO TIDWM Patient Comments: Take 1 capsule by mouth three times a day magnesium oxide 400 mg (241.3 mg magnesium) tablet 400 mg PO HS Discontinued oxycodone-acetaminophen 5-325 mg tablet 2 tab PO Q4H PRN (Reason: pain) Patient Comments: TAKE TWO TABLETS BY MOUTH EVERY FOUR TO SIX HOURS NEEDED FOR PAIN Activity Restrictions: No Restrictions Diet: Regular Health Concerns: You were admitted to the hospital because you had altered mental status. It seems as if you took a lot of Percocet without realizing that you had done that because your Tylenol level was also elevated. You have recovered well from that. It seems like you have had a rough few months with your shoulder being problematic and issues with pain control. In general alcohol is a poor pain reliever and can interact with other medications causing altered mental status. I recommend that she stop drinking alcohol. I recommend that you engage in the program you have used prior to maintain sobriety. Continue your physical therapy. Continue to take all of your vitamins as prescribed. I am prescribing a medication called Librium which we will take for the next several days. It will help with any symptoms of alcohol withdrawal. It also will make you rather sleepy and sedated. Do not drink alcohol with this medication as you can get oversedated if you drink alcohol with it. That could wind up making you come back to the hospital. See your primary care provider within 7 to 10 days. They should be able to help make you an appointment. Care Plan Goals: Stop drinking alcohol Engage with LEON[facility] and Eddie Membreno Follow-up with your primary care provider in 7 to 10 days Absolutely do not drink any alcohol while taking the chlordiazepoxide/Librium. Print Language: Uzbek Patient Instructions: Alcoholism, Addiction Alcohol, ED Withdrawal Alcohol Follow-up Care: Nancie Gloria PA-C [Primary Care Provider] -"
== END 2024-03-24 14:30 | disposition home or self-care (01) | DRG 918 ==
LOC: ED 20:43 → MS2 22:28
PROVIDERS: ADMIT Internal Medicine; ATTEND Internal Medicine
DX: F10.139 Alcohol abuse with withdrawal, unspecified; K70.9 Alcoholic liver disease, unspecified; T39.1X1A Poisoning by 4-Aminophenol derivatives, accidental (unintentional), initial encounter; R40.0 Somnolence; G93.40 Encephalopathy, unspecified; X58.XXXD Exposure to other specified factors, subsequent encounter; Z87.891 Personal history of nicotine dependence; Y90.3 Blood alcohol level of 60-79 mg/100 ml; S49.92XD Unspecified injury of left shoulder and upper arm, subsequent encounter; T40.601A Poisoning by unspecified narcotics, accidental (unintentional), initial encounter; Z79.899 Other long term (current) drug therapy; T50.901A Poisoning by unspecified drugs, medicaments and biological substances, accidental (unintentional), initial encounter; T42.4X1A Poisoning by benzodiazepines, accidental (unintentional), initial encounter